=== PATIENT | female | born 1980 | race Caucasian/White ===

== ENCOUNTER 2021-07-19 03:18 | Emergency (ER) | payer SELFPAY ==
--- NOTE | ~2021-07-19 | XR_ITS ---
EXAMINATION: XR chest 2V DATE: 07/19/2021 03:58 INDICATION: Dyspnea. COVID 19 2 weeks prior. TECHNIQUE: PA and lateral views of the chest were obtained. COMPARISON: Chest radiograph dated 12/30/2013 FINDINGS: The lungs are clear with no focal airspace opacities, pulmonary edema, pleural effusion or pneumothor ax. The cardiomediastinal silhouette is normal. Visualized bones and soft tissues are unremarkable. IMPRESSION: 1. Normal chest radiograph. Reviewed, dictated and finalized at location A. CATION MANAGER IMPRESSION: 1. Normal chest radiograph.
[2021-07-19 03:21] VITALS: BP 113/87; PULSE 99; RESP 20; TEMP 36.4; O2SAT 98
--- NOTE | 2021-07-19 03:35 | ECG_ITS ---
Measurements Intervals [place] Rate: 70 P: 53 [place]: 148 QRS: 61 QRSD: 88 T: 46 QT: 386 QTc: 418 Interpretive Statements SINUS RHYTHM INCOMPLETE RIGHT BUNDLE BRANCH BLOCK BORDERLINE ECG Electronically Signed On 07-19-2021 6:35:45 FIBERGLASS BONDING MACHINE TENDER by Kavon Sanford D.O.
[2021-07-19 03:43] VITALS: PULSE 93; RESP 16
[2021-07-19] MEDS: IPRATROPIUM BR 0.02% INH SOLN 0.5 MG/2.5 ML VIAL INHALATION (03:47)
[2021-07-19] MEDS: ALBUTEROL SULFATE NEB 2.5 MG/0.5 ML INH 5 MG INHALATION (03:47)
--- NOTE | 2021-07-19 03:49 | PCRCNOTE ---
Pt stated that post covid she is unable to perform certain physical tasks due to shortness of breath with exertion. Pt stated she wakes up in the night short of breath and that the shortness of breath comes out of nowhere even in times when sitting on the couch.
[2021-07-19 03:53] VITALS: PULSE 94; RESP 22; O2SAT 97
--- NOTE | 2021-07-19 04:03 | ED.SOB ---
HPI - SOB/Dyspnea General Chief Complaint: Shortness of Breath/Dyspnea Stated Complaint: sob, covid + 06/26 Time Seen by Provider: 07/19/21 03:31 Source: patient History of Present Illness HPI Narrative: Patient presents with shortness of breath. She does report she was diagnosed with Covid approximately 1 month ago was initially doing well however the past 2 weeks she has noted increased shortness of breath and cough. Tonight she was having a hard time sleeping due to her shortness of breath and chills which was a first to her so she came to the ER for evaluation. She also feels like her lips were blue at home was concerned she was not getting enough oxygen. She denies focal chest pain she denies any nausea or vomiting she denies any abdominal pain or urinary symptoms Related Data Allergies Allergy/AdvReac Type Severity Reaction Status Date / Time etodolac AdvReac Intermediate severe Verified 07/19/21 03:28 dehydration Review of Systems Review of Systems: CONSTITUTIONAL: Denies fever, chills, or sweats. EYES: Denies visual changes, redness, or discharge. ENT: Denies rhinorrhea, congestion, sore throat, or otalgia. CARDIOVASCULAR: Denies chest pain, palpitations, or edema. RESPIRATORY: Reports shortness of breath and cough. GASTROINTESTINAL: Denies abdominal pain, nausea, vomiting, or diarrhea. GENITOURINARY: Denies dysuria or hematuria. SKIN: Denies rash or itching. MUSCULOSKELETAL: Denies back pain, joint pain, or myalgia. NEUROLOGIC: Denies headache, numbness, dizziness, or weakness. PSYCHIATRIC: Denies anxiety or depression. All systems reviewed & are unremarkable except as noted in HPI and below PMFSH Social History Social History (Updated 07/19/21 @ 04:04 by Devon Ortiz MD) Smoking status: Current every day smoker Living arrangements: with family Exam Narrative: GENERAL: Well-appearing, well-nourished, and in no acute distress. HEAD: Normocephalic, atraumatic. EYES: PERRLA and EOMI. ENT: Nares clear, no rhinorrhea or epistaxis. Mucous membranes moist. NECK: Supple. No masses. No JVD CHEST: Clear to auscultation. No respiratory distress. No wheezes rales or rhonchi HEART: Regular rate and rhythm. No murmur heard. Normal peripheral pulses. ABDOMEN: Soft, nontender, nondistended, normal active bowel sounds. EXTREMITIES: Normal range of motion. No edema. SKIN: Warm, dry, no rash. NEURO: No focal deficits. Alert and oriented x3. PSYCH: Normal mood and affect. Course Reevaluation(s) Reevaluation #1: Patient reports feeling much improved after DuoNeb therapies. Results and plan reviewed with patient. Patient is comfortable outpatient plan. Date: 07/19/21 Time: 05:06 Vital Signs Vital signs: Vital Signs Temperature 36.4 C L 07/19/21 03:21 Pulse Rate 99 07/19/21 03:21 Respiratory Rate 20 07/19/21 03:21 Blood Pressure 113/87 07/19/21 03:21 Pulse Oximetry 98 07/19/21 03:21 Temperature 36.4 C L 07/19/21 03:21 Pulse Rate 81 07/19/21 05:37 Respiratory Rate 20 07/19/21 05:37 Blood Pressure 119/73 07/19/21 05:37 Pulse Oximetry 98 07/19/21 05:37 MDM - SOB/Dyspnea MDM Narrative Medical decision making narrative: H&P as above, vss, pt looks clinically well, exam reassuring, labs with mild leukocytosis otherwise clinically unremarkable, img without acute process, additional labs/img considered, symptomatic relief available as needed, on reevaluation pt continues to looks clinically well. Suspect viral bronchitis may be related to recent Covid infection versus reinfection or other viral process. Patient did decline additional viral testing, dns pneumonia, severe sepsis, hypoxia, PE. plan to tx/monitor as op w/ pcm f/u findings/plan discussed with pt, pt agree/comfortable with plan, return precautions given Lab Data Result diagrams: 07/19/21 04:19 07/19/21 04:19 Labs: Lab Results 07/19/21 07/19/21 07/19/21 Range/Units 04:19 04:19 04:19
[2021-07-19 04:38] LABS: Basophils Absolute Auto 0.1 K/mm3 (0.0-0.1); Basophils Percent Auto 0.5 % (0.2-1.2); Eosinophils Absolute Auto 0.5 K/mm3 (0-0.3); Eosinophils Percent Auto 4.2 % (0-4.4); Hematocrit 43.6 % (37.0-47.0); Hemoglobin 15.3 g/dL (12.0-15.0); Immature Granulocyte Absolute 0.04 K/mm3 (0.00-0.031); Immature Granulocyte Percent A 0.3 % (0-0.5); Lymphocytes Absolute Auto 3.67 K/mm3 (0.9-3.2); Lymphocytes Percent Auto 30.6 % (18.3-44.2); Mean Corpuscular HGB Conc 35.1 g/dl (32-36); Mean Corpuscular Hemoglobin 32.2 pg (26-34); Mean Corpuscular Volume 91.8 fl (80-100); Mean Platelet Volume 10.8 fl (7.4-10.4); Monocytes Absolute Auto 0.7 K/mm3 (0.1-0.6); Monocytes Percent Auto 5.9 % (2.6-8.5); Neutrophils Percent Auto 58.5 % (45.5-73.1); Platelet Count Result 211 k/mm3 (150-375); Red Blood Count 4.75 M/mm3 (4.2-5.4); Red Cell Distribution Width 13.2 % (11.5-14.5)
[2021-07-19 04:48] LABS: Alanine Aminotransferase 14 U/L (4-35); Albumin Level 3.7 g/dL (3.5-5.1); Alkaline Phosphatase 67 U/L (38-126); Anion Gap 7 mmol/L (8-16); Aspartate Amino Transferase 16 U/L (14-36); Bilirubin,Total 0.2 mg/dL (0.2-1.3); Blood Urea Nitrogen 9 mg/dL (7-17); Calcium 8.7 mg/dL (8.4-10.2); Carbon Dioxide 23 mmol/L (22-30); Chloride 107 mmol/L (98-107); Estimated CRCL calculation 74 ml/min; Estimated Glomerular Filt Rate > 60; Glucose 110 mg/dL (65-110); Potassium 3.5 mmol/L (3.4-5.0); Sodium 137 mmol/L (137-145)
[2021-07-19 05:37] VITALS: BP 119/73; PULSE 81; RESP 20; O2SAT 98
== END 2021-07-19 05:19 | disposition home or self-care (01) ==
PROVIDERS: Emergency Provider Emergency Medicine
DX: J40 Bronchitis, not specified as acute or chronic (principal); Z86.16 Personal history of COVID-19; F17.200 Nicotine dependence, unspecified, uncomplicated; I45.10 Unspecified right bundle-branch block
CPT/HCPCS: 36415; 71046; 80053; 85025; 85380; 93005; 94640; 99284

== ENCOUNTER 2022-02-04 14:47 | Emergency (ER) | payer SELFPAY ==
[2022-02-04 15:02] VITALS: BP 126/82; PULSE 91; RESP 18; TEMP 36.1; O2SAT 98
--- NOTE | 2022-02-04 15:29 | ED.URI ---
HPI - URI/Sore Throat General Chief Complaint: Upper Respiratory Infection Stated Complaint: COUGH/SOB Source: patient Mode of arrival: ambulatory Limitations: no limitations History of Present Illness HPI Narrative: 41-year-old female presents to [facility] with complaints of runny nose, cough, nasal congestion, intermittent shortness of breath and wheezing for the past 4 days. Patient is a smoker. Patient reports that she has a history of bronchitis but ran out of her inhaler recently patient reports that 2 of her children currently have cold-like symptoms including a runny nose. Patient denies recent travel. Patient denies fever, body aches, chills, nausea, vomiting or diarrhea. MD elicited complaint: cough, rhinorrhea and nasal congestion Onset (ago): day(s) (4) Able to tolerate fluids by mouth: Yes Exacerbating factors: nothing Associated symptoms: rhinorrhea and nasal congestion Treatments prior to arrival: none Related Data Allergies Allergy/AdvReac Type Severity Reaction Status Date / Time etodolac AdvReac Intermediate severe Verified 07/19/21 03:28 dehydration Review of Systems Constitutional: Constitutional: Denies chills, Denies fatigue, Denies fever(s) and Denies weakness ENT: Denies dysphagia, Denies vertigo, Denies dizziness, Denies epistaxis and Reports nasal congestion Comments: runny nose Cardiovascular: Cardiovascular: Denies chest pain Respiratory: Respiratory: Reports chest congestion, Reports cough, Reports dyspnea and Reports wheezing Gastrointestinal: Gastrointestinal: Denies abdominal pain, Denies diarrhea, Denies nausea and Denies vomiting Integumentary/Breasts: Skin/Breast: Denies rash PMFSH Social History Social History Smoking status: Current every day smoker Comments At time of signature, I agree with nursing past medical, surgical, social and family history. There is no relevant family history pertinent to the presenting complaint. Exam Const: General: healthy appearing Nutritional Appearance: well nourished Orientation/consciousness: patient oriented x3 Limitations: no limitations HENMT: Head: normal to inspection Ears: external ears normal General nose exam: Normal external nose present and Normal nares present Face and sinus: normal facial exam Mouth: Yes Normal oral and palatal mucosa present Teeth and gingiva: dentition normal Throat: posterior oropharynx normal and uvula midline Chest: Chest palpation & inspection: normal inspection of the chest Resp: Effort & Inspection: normal respiratory effort and not labored Auscultation: wheezes scattered wheezes Cardio: Rate: regular rate Rhythm: regular rhythm Heart sounds: no murmurs Skin: General skin exam: normal color Rashes: no rashes Wounds: no wounds Neuro: General: patient oriented x3 Cranial nerves: Yes Nystagmus not present Speech: normal speech Gait exam (Neuro): Normal gait present Extrem: General: normal to inspection Psych: Mental Status: mental status grossly normal Affect: normal affect Attitude: cooperative Course Course Level of Care: Express Care Visit Vital Signs Vital signs: Vital Signs Temperature 36.1 C L 02/04/22 15:02 Pulse Rate 91 02/04/22 15:02 Respiratory Rate 18 02/04/22 15:02 Blood Pressure 126/82 02/04/22 15:02 Pulse Oximetry 98 02/04/22 15:02 Oxygen Delivery Room Air 02/04/22 15:02 Temperature 36.1 C L 02/04/22 15:02 Pulse Rate 76 02/04/22 15:53 Respiratory Rate 16 02/04/22 15:53 Blood Pressure 126/82 02/04/22 15:02 Pulse Oximetry 96 02/04/22 15:53 Oxygen Delivery Room Air 02/04/22 15:02 MDM - URI/Sore Throat MDM Narrative Medical decision making narrative: Patient reports that her symptoms have improved after breathing treatment administered. Suggested chest x-ray but patient declined chest x-ray at this time; patient states I know this is not pneumonia. patien
[2022-02-04] MEDS: ALBUTEROL SULFATE NEB 2.5 MG/3 ML INH INHALATION (15:34)
[2022-02-04 15:53] VITALS: PULSE 76; RESP 16; O2SAT 96
== END 2022-02-04 16:00 | disposition home or self-care (01) ==
PROVIDERS: Emergency Provider Nurse Practitioner Family
DX: J40 Bronchitis, not specified as acute or chronic (principal); Z20.822 Contact with and (suspected) exposure to COVID-19; F17.200 Nicotine dependence, unspecified, uncomplicated
CPT/HCPCS: 87426; 99213; C9803; G0463

== ENCOUNTER 2023-11-06 19:52 | Emergency (ER) | payer OTHER, MEDICAID, SELFPAY ==
[2023-11-06] VITALS (8 sets, daily range): BP systolic 143–168; BP diastolic 82–104; PULSE 87–98; RESP 18–22; TEMP 37.1; O2SAT 96–99
--- NOTE | ~2023-11-06 | XR_ITS ---
EXAMINATION: XR chest 2V Exam Date/Time: 11/06/2023 20:05 CDT HISTORY: SOB, NAUSEA AND NON PRODUCTIVE COUGH X 1 DAY Comparison: 07/19/2021. RESULT: Lines, tubes, and devices: None. Lungs and pleura: Clear. Cardiomediastinal silhouette: Stable. Other: No acute osseous or upper abdominal finding. IMPRESSION: No acute cardiopulmonary process. Reviewed, dictated and finalized at location K.
--- NOTE | 2023-11-06 19:55 | ECG_ITS ---
[facility] [address] Test Date: 2023-11-06 Pat Name: Silke Read Department: Room: Gender: F Medical Cash Poster: JEFFREY : 1980 Requested By: Iron Recinos Order Number: [id number] Anu MD: Kavon Sanford D.O. Measurements Intervals [place] Rate: 83 P: 52 RI: 145 QRS: 48 QRSD: 92 T: 40 QT: 384 QTc: 453 Interpretive Statements SINUS RHYTHM BASELINE ARTIFACT- I, II AVR NORMAL ECG No previous ECG available for comparison Electronically Signed On 11-07-2023 09:24:54 CDT by Kavon Sanford D.O.
--- NOTE | 2023-11-06 20:01 | ED.SOB ---
HPI - SOB/Dyspnea General Chief Complaint: Shortness of Breath/Dyspnea Stated Complaint: sob Time Seen by Provider: 11/06/23 19:53 History of Present Illness HPI Narrative: 43-year-old female presents to emergency department for shortness of breath for the past few weeks, worsening over the past couple of days. Patient states she has past medical history of asthma and fibromyalgia. States she has noticed some wheezing and has been using her albuterol inhaler without improvement. States she has also developed a nonproductive cough the past few days which prompted her to come to the ED for further evaluation. She is reporting substernal chest pain that is nonradiating, worse with coughing and sometimes when she takes a deep breath. States it is nonradiating. She denies diaphoresis or vomiting. Does report some nausea. No history of CHF. No history of VTE. Denies hemoptysis, recent surgeries or hospitalizations. Patient does smoke a pack a day for multiple years. No formal diagnosis of COPD, no fever. Related Data Allergies Allergy/AdvReac Type Severity Reaction Status Date / Time etodolac AdvReac Intermediate severe Verified 07/19/21 03:28 dehydration Review of Systems Review of Systems: CONSTITUTIONAL: Denies fever, chills, or sweats. EYES: Denies visual changes, redness, or discharge. ENT: Denies rhinorrhea, congestion, sore throat, or otalgia. CARDIOVASCULAR: See HPI RESPIRATORY: See HPI GASTROINTESTINAL: Denies abdominal pain, nausea, vomiting, or diarrhea. GENITOURINARY: Denies dysuria or hematuria. SKIN: Denies rash or itching. MUSCULOSKELETAL: Denies back pain, joint pain, or myalgia. NEUROLOGIC: Denies headache, numbness, or weakness. PSYCHIATRIC: Denies anxiety or depression. [facility] Social History Social History Smoking status: Current every day smoker Living arrangements: with family Exam Narrative: GENERAL: Well-appearing, well-nourished, and in no acute distress. HEAD: Normocephalic, atraumatic. EYES: PERRLA and EOMI. ENT: Nares clear, no rhinorrhea or epistaxis. Mucous membranes moist. NECK: Supple. CHEST: Mild expiratory wheeze in the left lower lung field. No rales or rhonchi. Patient speaking in full sentences in no respiratory distress HEART: Regular rate and rhythm. No murmur heard. Normal peripheral pulses. ABDOMEN: Soft, nontender, nondistended, normal active bowel sounds. EXTREMITIES: Normal range of motion. No edema. SKIN: Warm, dry, no rash. NEURO: No focal deficits. Alert and oriented x3 Course Vital Signs Vital signs: Vital Signs Temperature 98.7 F 11/06/23 19:57 Pulse Rate 97 11/06/23 19:57 Respiratory Rate 19 11/06/23 19:57 Blood Pressure 168/104 H 11/06/23 19:57 Pulse Oximetry 99 11/06/23 19:57 Oxygen Delivery Room Air 11/06/23 19:57 Temperature 98.7 F 11/06/23 19:57 Pulse Rate 96 11/06/23 23:11 Respiratory Rate 19 11/06/23 23:11 Blood Pressure 150/104 H 11/06/23 23:11 Pulse Oximetry 96 11/06/23 23:11 Oxygen Delivery Room Air 11/06/23 21:01 MDM - SOB/Dyspnea MDM Narrative Medical decision making narrative: 43-year-old female with history of asthma and fibromyalgia presents to emergency department for shortness of breath over the past few weeks, worsening over the past couple of days. Triage vital significant for hypertension of 168/104. She is satting 99% on room air in no respiratory distress. Speaking in full sentences. Exam significant for expiratory wheezing in the left lower lung field, otherwise and no adventitious sounds. EKG was sinus rhythm, rate of 81 ppm, normal [place] interval, normal QRS duration, normal QTC, no ischemic changes. Troponin x2 nondetectable. CBC with leukocytosis of 14.5. Chemistries with hypokalemia of 2.9, Mag is normal. Potassium orally repleted. BNP within normal limits. COVID and flu were negative. Chest x-ray shows no
[2023-11-06 20:07] LABS: Basophils Absolute Auto 0.1 K/mm3 (0.0-0.1); Basophils Percent Auto 0.6 % (0.2-1.2); Eosinophils Absolute Auto 0.8 K/mm3 (0-0.3); Eosinophils Percent Auto 5.7 % (0-4.4); Hematocrit 46.3 % (37.0-47.0); Immature Granulocyte Absolute 0.06 K/mm3 (0.00-0.031); Immature Granulocyte Percent A 0.4 % (0-0.5); Lymphocytes Absolute Auto 3.75 K/mm3 (0.9-3.2); Lymphocytes Percent Auto 25.9 % (18.3-44.2); Mean Corpuscular HGB Conc 34.6 g/dl (32-36); Mean Corpuscular Hemoglobin 31.5 pg (26-34); Mean Corpuscular Volume 91.1 fl (80-100); Mean Platelet Volume 10.3 fl (7.4-10.4); Monocytes Absolute Auto 0.6 K/mm3 (0.1-0.6); Neutrophils Absolute Auto 9.2 K/mm3 (1.3-6.7); Neutrophils Percent Auto 63.4 % (45.5-73.1); Platelet Count Result 276 k/mm3 (150-375); Red Blood Count 5.08 M/mm3 (4.2-5.4); Red Cell Distribution Width 13.2 % (11.5-14.5); White Blood Count 14.5 K/mm3 (4.5-10.0)
[2023-11-06] MEDS: methylPREDNISolone SOD SUCC 125 MG VIAL IV PUSH (20:08)
[2023-11-06 20:20] LABS: Alanine Aminotransferase 18 U/L (6-35); Albumin Level 4.4 g/dL (3.5-5.1); Alkaline Phosphatase 80 U/L (38-126); Anion Gap 7 mmol/L (4-12); Aspartate Amino Transferase 18 U/L (14-36); Bilirubin,Total 0.7 mg/dL (0.2-1.3); Blood Urea Nitrogen 7 mg/dL (7-17); Calcium 8.7 mg/dL (8.4-10.2); Carbon Dioxide 28 mmol/L (22-30); Chloride 106 mmol/L (98-107); Estimated CRCL calculation 74 ml/min; Estimated Glomerular Filt Rate > 60; Glucose 102 mg/dL (65-110); Magnesium 1.8 mg/dL (1.6-2.3); Potassium 2.9 mmol/L (3.4-5.0); Sodium 141 mmol/L (137-145)
[2023-11-06] MEDS: IPRATROPIUM 0.5 MG/ALBUTEROL SULFATE 2.5 MG AMPUL.NEB 3 ML INHALATION ×3 (20:20→20:21)
[2023-11-06 20:31] LABS: NT Pro B Type Natriuretic Pept 37 pg/mL (19.9-100); Troponin I < 0.012 ng/mL (0.000-0.034)
[2023-11-06] MEDS: MAGNESIUM SULF 2 GM/WATER 50ML 2 GM/50 ML BAG IVPB (20:47)
[2023-11-06 20:52] LABS: Influenza A QL RT-PCR Negative (Negative); Influenza B QL RT-PCR Negative (Negative); SARS-CoV-2 RNA PCR Negative (Negative)
[2023-11-06] MEDS: POTASSIUM CHLORIDE 20 MEQ PACKET (FOR LIQUID) 40 MEQ PO (20:56)
[2023-11-06] MEDS: KCL 20 MEQ/SW 100 ML 100 ML 50 MEQ IVPB (20:56)
--- NOTE | 2023-11-06 21:18 | ECG_ITS ---
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 Measurements Intervals [place] Rate: 87 P: 3 [place]: 152 QRS: 25 QRSD: 96 T: 16 QT: 365 QTc: 441 Interpretive Statements SINUS RHYTHM BASELINE ARTIFACT- I, II, AVR, AVL, AVF NORMAL ECG Compared to ECG 11/06/2023 21:14:55 No significant changes Electronically Signed On 11-07-2023 11:13:27 CDT by Kavon Sanford D.O.
--- NOTE | 2023-11-06 21:22 | PC.NURSE ---
Patient stated that the Potassium began to burn her arm. Rate was slowed down to 30mL/hr and ran with normal saline. Patient states that arm still feels like it is on fire and in tears. Potassium and normal saline stopped all together. New EKG obtained and showed to EDP Dr. Mayorga. Notified EDP QUINTEN Ayala. Per Lucy cancel Potassium drip.
--- NOTE | 2023-11-06 22:39 | PC.NURSE ---
Patient states that she cannot drink the Potassium power drink and refuses anymore. Notified EDP QUINTEN Ayala.
[2023-11-06] MEDS: POTASSIUM CHLORIDE 20 MEQ ER TABLET PO (22:52)
[2023-11-06] MEDS: POTASSIUM CHLORIDE 20 MEQ ER TABLET 40 MEQ PO (22:53)
--- NOTE | 2023-11-06 23:02 | ECG_ITS ---
[facility] [address] Test Date: 2023-11-06 Pat Name: Silke Read Department: Room: Gender: F Dance Critic: aZy : 1980 Requested By: Lucy Penn Order Number: [id number] Reading MD: Kavon Sanford D.O. Measurements Intervals [place] Rate: 81 P: 57 [place]: 134 QRS: 49 QRSD: 94 T: 38 QT: 364 QTc: 424 Interpretive Statements SINUS RHYTHM BASELINE ARTIFACT- V5 NORMAL ECG No previous ECG available for comparison Electronically Signed On 11-07-2023 15:03:12 CDT by Kavon Sanford D.O.
[2023-11-06 23:21] LABS: Troponin I < 0.012 ng/mL (0.000-0.034)
== END 2023-11-06 23:40 | disposition home or self-care (01) ==
PROVIDERS: Emergency Medicine; Emergency Provider Physician Assistant; PCP Physician Assistant
DX: J45.901 Unspecified asthma with (acute) exacerbation (principal); E87.6 Hypokalemia; Z20.822 Contact with and (suspected) exposure to COVID-19; M79.7 Fibromyalgia; F17.210 Nicotine dependence, cigarettes, uncomplicated; Z79.899 Other long term (current) drug therapy
CPT/HCPCS: 36415; 71046; 80053; 83735; 83880; 84484; 85025; 87636; 93005; 94640; 96365; 96366; 96367; 99284; A9270; J2919; J3475; J3480; J7040

== ENCOUNTER 2023-11-15 09:48 | Emergency (ER) | payer OTHER, MEDICAID, SELFPAY ==
--- NOTE | ~2023-11-15 | CT_ITS ---
EXAMINATION: CT abdomen pelvis w con DATE: 11/15/2023 10:39 INDICATION: Left lower quadrant abdominal pain. Nausea. TECHNIQUE: Computed tomography (CT) of the abdomen and pelvis was performed with 100 mL Omnipaque 350 intravenous contrast. Automated exposure control and iterative reconstruction technique were employe d. The dose-length product was 947.49 mGy-cm. COMPARISON: CT abdomen and pelvis 10/08/2017, and 03/08/2015 FINDINGS: The visualized portions of the lung bases are clear without pneumonia or pleural effusion. The heart size is normal. No pericardial effusion. There is wall thickening of the distal esophagus. The liver, gallbladder, spleen, pancreas, adrenal glands, and right kidney are normal. There is a 5 m m cyst in left kidney. There are scattered diverticula in the colon. There is wall thickening of the sigmoid colon with fat stranding around a sigmoid diverticulum, consistent with diverticulitis. The a ppendix is normal. There are no dilated loops of bowel. There are no pathologically enlarged lymph no luna. There is physiologic fluid in the pelvis. There is moderate thoracic spondylosis and mild lumbar spondylosis. IMPRESSION: 1. Acute sigmoid diverticulitis. No perforation or abscess. 2. Chronic wall thickening of the distal esophagus suspicious for chronic esophagitis. Reviewed, dictated and finalized at location A. IMPRESSION: 1. Acute sigmoid diverticulitis. No perforation or abscess. 2. Chronic wall thickening of the distal esophagus suspicious for chronic esoph agitis.
[2023-11-15 10:02] VITALS: BP 143/87; PULSE 116; RESP 17; TEMP 38.3; O2SAT 98
--- NOTE | 2023-11-15 10:07 | ED.ABDPAIN ---
HPI - Abdominal Pain General Chief Complaint: Abdominal Pain <Dhruv Salvador APRN - Last Filed: 11/15/23 12:58> Stated Complaint: abdominal pain <Dhruv Salvador APRN - Last Filed: 11/15/23 12:58> Time Seen by Provider: 11/15/23 09:53 <Dhruv Salvador APRN - Last Filed: 11/15/23 12:58> Source: patient <Dhruv Salvador APRN - Last Filed: 11/15/23 12:58> Mode of arrival: ambulatory <Dhruv Salvador APRN - Last Filed: 11/15/23 12:58> Limitations: no limitations <Dhruv Salvador APRN - Last Filed: 11/15/23 12:58> History of Present Illness HPI narrative: Silke is a 43-year-old female patient presenting to the emergency room with complaints of left mid to lower abdominal pain that started this morning. She does have associated nausea. She reports she is currently has pain 5/10 him the pain is worse with movement. The pain is sharp and stabbing in nature. Last BM was this morning. States she has had decreased stool and is having more frequent stools but denies any blood in her stool. States she is also having some body aches chills and fever. She denies any urinary symptoms. History of you urinary tract infections, ovarian cyst, and IBS. Had a colonoscopy done 20 years ago. Last time she ate was 7:00pm. last night. <Dhruv Salvador APRN - Last Filed: 11/15/23 12:58> Related Data Allergies/Adverse Reactions: Allergies Allergy/AdvReac Type Severity Reaction Status Date / Time etodolac AdvReac Intermediate severe Verified 11/15/23 10:05 dehydration <Dhruv Salvador APRN - Last Filed: 11/15/23 12:58> Review of Systems Review of Systems: Pertinent positives per HPI. Patient denies any fever, chills, rash, headache, visual changes, dizziness, cough, runny nose, sore throat, shortness of breath, chest pain, palpitations, nausea, vomiting, diarrhea, constipation, abdominal pain, or any urinary issues. <Dhruv Salvador APRN - Last Filed: 11/15/23 12:58> PMFSH Social History Social History: Social History Smoking status: Current every day smoker Living arrangements: with family <Dhruv Salvador APRN - Last Filed: 11/15/23 12:58> Comments At the time of my signature, I reviewed and agree with the nursing past medical, surgical, social, and family history. There is no relevant family history pertinent to the patient complaint. <Dhruv Salvador APRN - Last Filed: 11/15/23 12:58> Exam Narrative: General: Well-developed, well nourished, in no apparent distress. Head: Normocephalic, atraumatic. Cardio: Regular rate and rhythm, s1 and s2 normal, no murmur appreciated. Resp: Clear to auscultation bilaterally, no rhonchi, rales, wheezing or rubs. Abdomen: Soft, pliable, bowel sounds present in all quadrants, left upper and lower abdomen tender to palpation rebound tenderness when palpation over the right to the left side the abdomen, no organomegly, no CVAT tenderness. <Dhruv Salvador APRN - Last Filed: 11/15/23 12:58> Course Course Emergency Course: Portions of this record may have been created with voice recognition software. <Dhruv Salvador APRN - Last Filed: 11/15/23 12:58> BRACELET FORM COVERER/PA Physician Supervision This visit was performed by both a physician and an APC. I performed all aspects of the MDM as documented. <Kenya Alvarez MD - Last Filed: 11/15/23 21:12> Vital Signs Vital signs: Vital Signs Temperature 100.9 F H 11/15/23 10:02 Pulse Rate 116 H 11/15/23 10:02 Respiratory Rate 17 11/15/23 10:02 Blood Pressure 143/87 H 11/15/23 10:02 Pulse Oximetry 98 11/15/23 10:02 Oxygen Delivery Room Air 11/15/23 10:02 Temperature 100.9 F H 11/15/23 10:02 Pulse Rate 98 11/15/23 12:48 Respiratory Rate 12 11/15/23 12:48 Blood Pressure 132/96 H 11/15/23 12:48 Pulse Oximetry 96 11/15/23 12:48 Oxygen Del
[2023-11-15 10:09] LABS: Basophils Absolute Auto 0.1 K/mm3 (0.0-0.1); Basophils Percent Auto 0.4 % (0.2-1.2); Eosinophils Absolute Auto 0.4 K/mm3 (0-0.3); Hemoglobin 15.8 g/dL (12.0-15.0); Immature Granulocyte Absolute 0.11 K/mm3 (0.00-0.031); Immature Granulocyte Percent A 0.5 % (0-0.5); Lymphocytes Absolute Auto 2.31 K/mm3 (0.9-3.2); Mean Corpuscular HGB Conc 34.3 g/dl (32-36); Mean Corpuscular Hemoglobin 31.9 pg (26-34); Mean Corpuscular Volume 92.7 fl (80-100); Mean Platelet Volume 9.8 fl (7.4-10.4); Monocytes Absolute Auto 1.2 K/mm3 (0.1-0.6); Monocytes Percent Auto 5.5 % (2.6-8.5); Neutrophils Absolute Auto 16.9 K/mm3 (1.3-6.7); Neutrophils Percent Auto 80.6 % (45.5-73.1); Platelet Count Result 272 k/mm3 (150-375); Red Blood Count 4.96 M/mm3 (4.2-5.4); Red Cell Distribution Width 13.1 % (11.5-14.5); White Blood Count 20.9 K/mm3 (4.5-10.0)
[2023-11-15 10:23] LABS: Alanine Aminotransferase 16 U/L (6-35); Alkaline Phosphatase 80 U/L (38-126); Anion Gap 5 mmol/L (4-12); Aspartate Amino Transferase 14 U/L (14-36); Bilirubin,Total 0.8 mg/dL (0.2-1.3); Blood Urea Nitrogen 9 mg/dL (7-17); Calcium 8.5 mg/dL (8.4-10.2); Carbon Dioxide 24 mmol/L (22-30); Chloride 106 mmol/L (98-107); Estimated CRCL calculation 79 ml/min; Estimated Glomerular Filt Rate > 60; Glucose 99 mg/dL (65-110); Lipase 49 U/L (23-300); Potassium 3.8 mmol/L (3.4-5.0); Sodium 135 mmol/L (137-145)
[2023-11-15 10:32] LABS: Appearance Urine Clear (Clear); Bacteria Urine None Seen /hpf; Bilirubin Urine Negative (Negative); Blood Urine 1+ (Negative); Color Urine Yellow (Yellow); Glucose Urine UA Negative (Negative); Ketones Urine Negative (Negative); Leukocyte Esterase Ur Negative LEU/UL (Negative); Nitrate Urine Negative (Negative); Non Pathogenic Casts 0-2; Protein Urine Negative (Negative); Specific Grav Ur 1.017 (1.001-1.035); Squamous Epithelial Cell Urine None Seen /hpf (Few); Urobilinogen Urine 0.2 mg/dL (<2.0); WBC Urine 0-5 /hpf (0-3)
[2023-11-15 10:34] LABS: Lactic Acid Reflex 1.3 mmol/L (0.7-2.0)
[2023-11-15 10:36] LABS: Add Urine Microscopic? YES
[2023-11-15] MEDS: SODIUM CHLORIDE 0.9% IV 1,000 ML 999 ML IV CONT (11:23)
[2023-11-15] MEDS: ONDANSETRON INJ 4 MG/2 ML VIAL IV PUSH ×2 (11:23→12:46)
[2023-11-15] MEDS: MORPHINE SULFATE (*CRX) 4 MG/ML INJ IV PUSH ×2 (11:25→12:45)
[2023-11-15 11:42] VITALS: BP 110/67; PULSE 104; RESP 20; O2SAT 97
[2023-11-15 12:48] VITALS: BP 132/96; PULSE 98; RESP 12; O2SAT 96
== END 2023-11-15 13:06 | disposition home or self-care (01) ==
PROVIDERS: Emergency Provider Nurse Practitioner Family; PCP Physician Assistant
DX: K57.92 Diverticulitis of intestine, part unspecified, without perforation or abscess without bleeding (principal); F17.210 Nicotine dependence, cigarettes, uncomplicated
CPT/HCPCS: 36415; 74177; 80053; 81001; 81025; 83605; 83690; 85025; 87040; 96361; 96374; 96375; 96376; 99284; J2270; J2405; J7030; Q9967

== ENCOUNTER 2024-01-22 10:57 | Outpatient (CLI) | payer OTHER, MEDICAID, SELFPAY ==
--- NOTE | ~2024-01-22 | US_ITS ---
US axilla 01/22/2024 11:36 Indication: Palpable axillary abnormalities. Procedure: High-resolution bilateral axillary ultrasound Comparison: No prior studies for comparison. Findings: There are bilateral axillary lymph nodes measuring 1.4 cm on the right and up to 1.9 cm on the left. All lymph nodes contained residual fatty hilum, likely reactive. Impression: 1: Probable benign reactive bilateral axillary lymph nodes. Recommend correlation with diagnostic liam ateral mammogram. BI-RADS CATEGORY 0 - INCOMPLETE STUDY, NEED ADDITIONAL IMAGING EVALUATION. Reviewed, dictated and finalized at location B. Impression: 1: Probable benign reactive bilateral axillary lymph nodes. Recommend correlati on with diagnostic bilateral mammogram. BI-RADS CATEGORY 0 - INCOMPLETE STUDY, NEED ADDITIONAL IMAGING EVALUATION.
== END 2024-01-22 10:58 | disposition home or self-care (01) ==
PROVIDERS: PCP Physician Assistant; Visit Provider Physician Assistant
DX: R22.2 Localized swelling, mass and lump, trunk (principal)
CPT/HCPCS: 76882

== ENCOUNTER 2024-04-24 12:47 | Outpatient (CLI) | payer OTHER, MEDICAID, SELFPAY ==
--- NOTE | ~2024-04-24 | MM_ITS ---
EXAMINATION: MM diagnostic dario BI w roberto HISTORY: Axillary swelling TECHNIQUE: 3-D tomosynthesis images of the breasts were performed and synthetic 2-D images were gener ated. CAD analysis was submitted and interpreted. COMPARISON: None BREAST PARENCHYMAL COMPOSITION:Not Dense. The breasts are almost entirely fatty FINDINGS: Parenchymal pattern of the breasts is unremarkable. No mass lesion or distortion seen. No s uspicious pelvic or calcification. IMPRESSION: No mammographic evidence for malignancy. BI-RADS Category 1: Negative Reviewed, dictated and finalized at location M. TRAINER
== END 2024-04-24 12:48 | disposition home or self-care (01) ==
LOC: ANHIMG 12:51
PROVIDERS: PCP Physician Assistant; Visit Provider Physician Assistant
DX: Z12.31 Encounter for screening mammogram for malignant neoplasm of breast (principal)
CPT/HCPCS: 77062; 77066; G0279

== ENCOUNTER 2024-05-24 16:51 | Emergency (ER) | payer OTHER, MEDICAID, SELFPAY ==
--- NOTE | ~2024-05-24 | XR_ITS ---
EXAMINATION: XR chest 2V Exam Date/Time: 05/24/2024 18:54 FACTORY ENGINEER HISTORY: shortness of breath Comparison: 11/06/2023. RESULT: Lines, tubes, and devices: None. Lungs and pleura: Clear. Cardiomediastinal silhouette: Stable. Other: No acute osseous or upper abdominal finding. IMPRESSION: No acute cardiopulmonary process. Reviewed, dictated and finalized at location K. ORY ENGINEER
[2024-05-24 16:52] VITALS: BP 164/94; PULSE 94; RESP 18; TEMP 36.8; O2SAT 100
[2024-05-24 17:07] VITALS: BP 143/93; PULSE 86; RESP 18; TEMP 36.9; O2SAT 97
--- NOTE | 2024-05-24 17:56 | ED_ITS ---
HPI - URI/Sore Throat General Chief Complaint: Upper Respiratory Infection Stated Complaint: I'm almost positive I've got bronchitis Time Seen by Provider: 05/24/24 17:02 History of Present Illness HPI Narrative: Patient is a 44-year-old female who presents to the ER with breathing problems. She reports she has a history of asthma and her inhaler at home is no longer working. Patient reports this exacerbation started approximately 1 week ago. She reports she has been using her inhaler every 2 hours. Patient reports she has bronchitis 3 times in the past year. She denies any recent temperatures, sore throat, headache, chest pain. Related Data Home Medications ?Medication ?Instructions ?Recorded ?Confirmed ?Last Taken ?Type beclomethasone dipropionate 40 1 inh inhalation Q12H 04/15/24 05/11/24 Unknown History mcg/actuation HFA breath activated aerosol (Qvar RediHaler) tizanidine 2 mg capsule 2 mg PO TID PRN 04/15/24 05/11/24 Unknown History Allergies Allergy/AdvReac Type Severity Reaction Status Date / Time etodolac AdvReac Intermediate severe Verified 05/24/24 17:11 dehydration Review of Systems Review of Systems: All systems reviewed & are unremarkable except as noted in HPI and below PMFSH Past Medical History Medical History IBS (irritable bowel syndrome) Migraine GERD (gastroesophageal reflux disease) Asthma Anemia Anxiety Allergies Surgical History Surgical History History of endometrial ablation H/O tubal ligation History of delivery x 3 Family History Family History Mother Heart disease Hypertension Grandparent Heart disease Hypertension Social History Social History Smoking status: Current every day smoker Tobacco type: cigarettes Alcohol intake: current Alcohol use details: rarely Substance use: never Substance use type: does not use Current Housing: Decline to Answer Concerned About Future Housing: Decline to Answer Difficulty Paying Gas/Electric Bills: Decline to Answer Difficulty Paying for Meds: Decline to Answer Currently Unemployed: Decline to Answer Education: Decline to Answer Difficulty w/ Childcare or Family Care: Decline to Answer Living arrangements: with family Occupation/Education: occupation Gender identity (if verbalized by the patient): Female Sexual Orientation (if Verbalized by the Patient): Straight or Heterosexual Exam Narrative: GENERAL: Well appearing, well-nourished, non-toxic, in no acute distress. HEAD: Normocephalic, atraumatic. NECK: Supple. No adenopathy, no masses. RESPIRATORY: Airway patent, respirations mildly labored. Clear to auscultation bilaterally, no rales, rhonchi, wheezing. CARDIOVASCULAR: Regular rate and rhythm without murmurs, rubs, or gallops. Peripheral pulses 2+ and equal bilaterally. ABDOMINAL: Soft, nontender, nondistended, no hepatosplenomegaly. Normoactive BS. MUSCULOSKELETAL: Moves all extremities. Strength/ROM intact without gross deformities. SKIN: Warm, dry, normal color. No rashes. NEURO: A&O X3. Speech clear. Cranial nerves II-XII grossly intact. Steady gait. No ataxic movements. PSYCHIATRIC: Appropriate mood and affect. Normal interaction. Course Vital Signs Vital signs: Vital Signs Temperature 36.8 C 05/24/24 16:52 Pulse Rate 94 05/24/24 16:52 Respiratory Rate 18 05/24/24 16:52 Blood Pressure 164/94 H 05/24/24 16:52 Pulse Oximetry 100 05/24/24 16:52 Oxygen Delivery Room Air 05/24/24 16:52 Temperature 36.9 C 05/24/24 17:07 Pulse Rate 94 05/24/24 18:05 Respiratory Rate 18 05/24/24 18:05 Blood Pressure 143/93 H 05/24/24 17:07 Pulse Oximetry 97 05/24/24 17:07 Oxygen Delivery Room Air 05/24/24 17:07 MDM - URI/Sore Throat MDM Narrative Medical decision making narrative: Patient is a 44-year-old female who presents to the ER with breathing problems. She reports she has a history of asthma and her inhaler at home is no longer working. Patient reports this exacerbation started approximately 1 week ago. She reports she has been using her inhaler every 2 hours. Patient reports she has bronchitis 3 times in the past year. She denies any recent temperatures, sore throat, headache, chest pain. Labs Ordered: COVID/flu/RSV swab Imaging Ordered: chest x-ray Results: Chest x-ray indicates No acute cardiopulmonary process. Diagnosis: Upper respiratory infection Patient Education/Shared MDM: Patient given a DuoNeb in the ER. She endorses improvement in her breathing afterwards. Patient given results of negative respiratory panel and negative chest x-ray. She will be given a dose of IM Solu-Medrol prior to discharge and sent home with a Medrol Dosepak. Patient was strongly advised to follow-up with her primary care provider in the next 1-2 days. Patient verbalizes understanding and is in agreement of plan. Differential Diagnosis Differential diagnosis: Likely upper respiratory infection, sinusitis, viral infection, bronchitis and influenza Lab Data Attestation: I reviewed the patient's lab results. Labs: Lab Results 05/24/24 Range/Units 18:15 Influenza A (RT-PCR) Negative (Negative) Influenza B (RT-PCR) Negative (Negative) RSV (RT-PCR) Negative (Negative) SARS-CoV-2 RNA (RT-PCR) Negative (Negative) Imaging Data Attestation: I personally reviewed and interpreted this imaging study as follows: Radiologist's impression: Impressions Chest X-Ray 05/24/24 19:09 IMPRESSION: No acute cardiopulmonary process. Discharge Plan Discharge Clinical Impression: Upper respiratory infection Patient Disposition: Home, Self-Care Condition: Stable Instructions: Antibiotic Form Additional Instructions: Please return to the ER with an worsening symptoms. Follow-up with primary care provider in the next 2-3 days. Take all medications as prescribed. Patient Language: Pashto Prescriptions: New methylprednisolone [Medrol (Suman)] 4 mg tablets,dose pack See Rx Instructions .ROUTE .COMPLEX Qty: 21 0RF Rx Instructions: for 6 days No Action albuterol sulfate [ProAir HFA] 90 mcg/actuation HFA aerosol inhaler 1 inh inhalation QID PRN (Reason: shortness of breath or wheezing) Qty: 6.7 0RF Qvar RediHaler 40 mcg/actuation HFA aerosol breath activated 1 inh inhalation Q12H tizanidine 2 mg capsule 2 mg PO TID PRN Follow-up/Referrals: Summer,QUINTEN Cedeno [Primary Care Provider] - Time of Disposition: 19:33
[2024-05-24 17:59] VITALS: PULSE 96; RESP 18
[2024-05-24] MEDS: IPRATROPIUM 0.5 MG/ALBUTEROL SULFATE 2.5 MG AMPUL.NEB 3 ML INHALATION (17:59)
[2024-05-24 18:05] VITALS: PULSE 94; RESP 18
[2024-05-24 18:57] LABS: Influenza A QL RT-PCR Negative (Negative); Influenza B QL RT-PCR Negative (Negative); RSV RNA, RT-PCR Negative (Negative); SARS-CoV-2 RNA PCR Negative (Negative)
[2024-05-24] MEDS: methylPREDNISolone SOD SUCC 125 MG VIAL IM (20:01)
[2024-05-24 20:07] VITALS: BP 139/87; PULSE 81; RESP 18; O2SAT 99
--- OUTSIDE RECORDS SUMMARY | 2024-05-29 15:42 | XMS_ITS | Patient Health Summary ---
Author Organization [facility] Address [facility] [place] [address] Care Team Providers Care Java Tech Lead Name Role Phone Unavailable Primary Care Provider Unavailabl e Note from [facility],non-owned Affiliates and Associated Physician Practices is amultiple site organization consisting of ambulatory clinics and hospital sitesin [place], [place], [place] and [place]. This disclosure is being madepursuant to the Care Everywhere program and may not contain all information available regarding this patient. Last updated 18.[facility] Allergies * Etodolac(Unknown) -High Criticality Medications Be aware that medications may not be up to date on this document. Always verify current medications with the patient. No known medications Active Problems Problem Noted Date Diagnosed Date with poor obstetric history 01/18/2009 Obesity affecting , antepartum 01/19/20 09 Previous delivery, antepartum condition or complication 01/18/2009 Social History Tobacco Use Types Packs/Day Years Used Date Smoking Tobacco: Every Day Cigarettes 1 8 Alcohol Use Standard Drinks/Week Comments Yes 0 (1 standard drink = 0.6 oz pur e alcohol) occ use. not during preg Sex and Gender Information Value Date Recorded Sex Assigned at Not on file Gender Identity Not on file Sexual Orientation Not on file Last Filed Vital Signs Vital Sign Reading Time Taken Comments Blood Pressure 106/56 01/26/2009 10:40 AM CDT Pulse 92 01/26/2009 10:40 AM CDT Temperature - - Respiratory Rate 20 01/26/2009 10:40 AM CDT Oxygen Saturation - - Inhaled Oxygen Concentration - - Weight 98 kg (216 lb) 01/19/2009 10:55 AM CDT Height 154.9 cm (5' 1 ) 01/12/2009 10:45 AM CDT Body Mass Index 40.81 01/12/2009 10:45 AM CDT Procedures * CULTURE URINE(Performed 11/02/2013) * URINALYSIS OBSTETRICS - POINT OF CARE(Performed 01/19/2009) * URINALYSIS - POINT OF CARE(Performed 01/05/2009) Performed for with Other Poor Obstetric History (HCC) * KETO DIASTIX - POINT OF CARE (IP)(Performed 01/05/2009) Performed for with Other Poor Obstetric History (HCC) * KETO DIASTIX - POINT OF CARE (IP)(Performed 12/01/2008) Performed for with Other Poor Obstetric History (HCC) * URINALYSIS - POINT OF CARE(Performed 12/01/2008) Performed for with Other Poor Obstetric History (HCC) * KETO DIASTIX - POINT OF CARE (IP)(Performed 08/10/2008) Performed for with Other Poor Obstetric History (HCC) * URINALYSIS - POINT OF CARE(Performed 08/10/2008) Performed for with Other Poor Obstetric History (HCC) Results * (ABNORMAL) CULTURE URINE (11/02/2013 1:00 AM CDT) Culture Urine Less than 10,000 CFU/ML of Normal Urogenital/ Skin Elba [facility] Comment:. Culture Urine REBEKAH ALBICANS(A) [facility] Comment:Numeric Value - 300 CFU/ML Rebekah Albicans Urine specimen (specimen) URINE SPECIMEN OBTAINED BY CLEAN CATCH PROCEDURE / Unknown 11/02/2013 1:00 AM CDT 11/02/2013 8:44 AM CDT Narrative [facility] - 11/04/2013 4:33 PM CDT AndersonSpecimen#[id number] Cameron Loc/Rm/Bed: LDR/105/00 CLN CATCH U Historical Provider LAB - MICROBIOLOG Y ORDERABLES [address] [phone] * URINALYSIS OBSTETRICS - POINT OF CARE (01/19/2009 1:00 PM CDT) Glucose UA negative Negative [facility] Bilirubin UA negative Negative [facility] PO CT TESTING Ketone UA negative Negative [facility] Specific [place] UA POCT 1.025 1.000 - 1.030 [facility] Blood UA negative Negative [facility] pH UA 6.0 5.0 - 8.0 pH units [facility] Protein UA negative Negative [facility] Urobilinogen UA 0.2 0.2 - 1.0 EU/dL [facility] Nitrite UA negative Negative [facility] Leukocyte UA negative Negative [facility] PO CT TESTING QC Verified yes Yes [facility] POC T TESTING Urine specimen (specimen) URINE / Unknown 01/19/2009 1:00 PM CDT Rual Barker MD LAB - POINT OF CARE ORDERABLES Performing Organization Address City/[facility] Co de Phone Number [facility] POCT [facility] [id number] [place] [address] * KETO DIASTIX - POINT OF CARE (01/05/2009 10:30 AM CDT) Only the most recent of3 resultswithin the time period is included. Pathologist [facility] Ketone UA Not Detected Not Detected mg/dl [facility] Glucose UA Not Detected Not Detected mg/dl [facility] Comment Glucose UA: This test was performed by Women's Services Staff [facility] URINE / Unknown 01/05/2009 1 0:30 AM CDT Only Default LAB - POINT OF CARE ORDERABLES Performing Organization Address [facility] Co de Phone Number [facility] [address] [place] [address] * URINALYSIS - POINT OF CARE (01/05/2009 10:30 AM CDT) Only the most recent of3 resultswithin the time period is included. Leukocyte UA Not Detected Not Detected /ul [facility] Protein UA Not Detected Not Detected mg/dl [facility] Glucose UA Not Detected Not Detected mg/dl [facility] Blood UA Not Detected Not Detected /ul [facility] Nitrite UA Not Detected Not Detected [facility] Comment Test performed by [facility] Women's Services Staff. [facility] URINE / Unknown 01/05/2009 1 0:30 AM CDT Only Default LAB - POINT OF CARE ORDERABLES Performing Organization Address City/State/[facility] Co de Phone Number [facility] [address] [place] [address]
--- OUTSIDE RECORDS SUMMARY | 2024-05-29 15:42 | XMS_ITS | Referral Summary ---
Author Organization [facility] Address [address] [place] [address] Care Team Providers Care Bonsai Culturist Name Role Phone Unavailable Primary Care Provider Unavailabl e Source Comments [facility],non-owned Affiliates and Associated Physician Practices is amultiple site organization consisting of ambulatory clinics and hospital sitesin [place], [place], [place] and [place]. This disclosure is being madepursuant to the Care Everywhere program and may not contain all information available regarding this patient. Last updated 18.[facility] Allergies Active Allergy Reactions Criticality Noted Date Comments Etodolac Unknown High 01/12/2009 Causes dehydration Medications Be aware that medications may not be up to date on this document. Always verify current medications with the patient. No known medications Active Problems Problem Noted Date Diagnosed Date with poor obstetric history 01/18/2009 Overview (12/01/2016): IMO Update 12/08/2016 Obesity affecting , antepartum 01/19/20 09 Overview (04/17/2015): Previous delivery, antepartum condition or complication 01/18/2009 [...] Mass Index 40.81 01/12/2009 10:45 AM CDT Plan of Treatment Not on file
--- OUTSIDE RECORDS SUMMARY | 2024-05-29 15:42 | XMS_ITS | Encounter Summary ---
Author Organization [facility] Address [facility] [place] [address] Care Team Providers Care Custom Shoe Designer And Maker Name Role Phone Unknown, Provider Primary Care Provider Unavaila ble Encounter Details Date Type Department Care Team (Latest Contact Info) Description 10/06/2008 12:49 PM CDT - 10/07/2008 11:59 PM CDT Hospital Encounter [facility] Default [address] [place] [address] Milton Bang MD [address] [place] [phone] Diagnostic Discharge Disposition: Home or Self Care Social History Tobacco Use Types Packs/Day Years Used Date Smoking Tobacco: Never Assessed Sex and Gender Information Value Date Recorded Sex Assigned at Not on file Gender Identity Not on file Sexual Orientation Not on file documented as of this encounter Plan of Treatment Not on file documented as of this encounter Visit Diagnoses Not on filedocumented in this encounter Care Teams Custom Shoe Designer And Maker Relationship Specialty Start Date End Date Unknown, Provider PCP - General 08/10/08 10/27/13 documented as of this encounter
--- OUTSIDE RECORDS SUMMARY | 2024-05-29 15:42 | XMS_ITS | Encounter Summary ---
Author Organization [facility] Address [address] [place] [address] Care Team Providers Care Commodity Merchant Name Role Phone Unknown, Provider Primary Care Provider Cieraa ble Encounter Details Date Type Department Care Team (Latest Contact Info) Description 01/08/2009 12:01 AM CDT - 02/07/2009 11:59 PM CDT Hospital Encounter Maternal & Care at [facility] [address] , [address] [place] [address] Default, Only Milton Bang MD [address] [place] [phone] Diagnostic Discharge Disposition: Home or Self Care Social History Tobacco Use Types Packs/Day Years Used Date Smoking Tobacco: Every Day Cigarettes 1 8 Alcohol Use Standard Drinks/Week Comments Yes 0 (1 standard drink = 0.6 oz pur e alcohol) occ use. not during preg Comments Yes Sex and Gender Information Value Date Recorded Sex Assigned at Not on file Gender Identity Not on file Sexual Orientation Not on file documented as of this encounter Plan of Treatment Not on file documented as of this encounter Visit Diagnoses Not on filedocumented in this encounter Care Teams Commodity Merchant Relationship Specialty Start Date End Date Unknown, Provider PCP - General 08/10/08 10/27/13 documented as of this encounter
--- OUTSIDE RECORDS SUMMARY | 2024-05-29 15:42 | XMS_ITS | Encounter Summary ---
Author Organization [facility] Address [address] [place] [address] Care Team Providers Care Retinal Surgeon Name Role Phone Unknown, Provider Primary Care Provider Unavaila ble Encounter Details Date Type Department Care Team (Latest Contact Info) Description 02/08/2009 12:01 AM CDT - 02/08/2009 5:36 PM CDT Hospital Encounter Maternal & Care at [facility] [address] , [address] [place] [address] Milton Bang MD [address] [place] [phone] Diagnostic Discharge Disposition: Home or Self Care [...] on filedocumented in this encounter Care Teams Retinal Surgeon Relationship Specialty Start Date End Date Unknown, Provider PCP - General 08/10/08 10/27/13 documented as of this encounter
--- OUTSIDE RECORDS SUMMARY | 2024-05-29 15:42 | XMS_ITS | Encounter Summary ---
Author Organization [facility] Address [facility] [place] [address] Care Team Providers Care Yield Clerk Name Role Phone Unknown, Provider Primary Care Provider Unavaila ble Reason for Visit * Reason Comments Ultrasound FAD NST Encounter Details Date Type Department Care Team (Latest Contact Info) Description 01/26/2009 10:30 AM CDT M Procedure Visit Maternal & Care at [facility] [id number] [place] [address] , [address] [place] [address] Previous Delivery, Antepartum Condition or Complication (HCC); Obesity-Antepartum (HCC); Hx of Maternal HELLP Syndrome, Currently (HCC) Social History Tobacco Use Types Packs/Day Years [...] on file documented as of this encounter Last Filed Vital Signs Vital Sign Reading Time Taken Comments Blood Pressure 106/56 01/26/2009 10:40 AM CDT Pulse 92 01/26/2009 10:40 AM CDT Temperature - - Respiratory Rate 20 01/26/2009 10:40 AM CDT Oxygen Saturation - - Inhaled Oxygen Concentration - - Weight - - Height - - Body Mass Index - - documented in this encounter Plan of Treatment Scheduled Orders Name Type Priority Associated Diagnoses Orde r Schedule SONOGRAM - LIMITED MATRNL MED Routine Previous Delivery, Antepartum Condition or Complication (HCC) Obesity-Antepartum (HCC) Expected: 01/26/2009, Expires: 01/24/2010 documented as of this encounter Visit Diagnoses Diagnosis Previous delivery, antepartum condition or complication (HCC) Previous delivery, antepartum condition or complication Obesity complicating , childbirth, or the puerperium, antepartum condition or complication(649.13) (HCC) Obesity complicating , childbirth, or the puerperium, antepartum condition or complication Hx of maternal HELLP syndrome, currently (HCC) with other poor obstetric history documented in this encounter Care Teams Yield Clerk Relationship Specialty Start Date End Date Unknown, Provider PCP - General 08/10/08 10/27/13 documented as of this encounter
--- OUTSIDE RECORDS SUMMARY | 2024-05-29 15:42 | XMS_ITS | Data Portability ---
Author Organization [facility] Address [address] [place] [address] Care Team Providers Care Hand Former Helper Name Role Phone PAO AGGARWAL Primary Care Provider [phone] Assessment No assessment recorded. Plan of Treatment Reminders Order Date Submit Date Provider Last Modified By Organization Details Last Modified Time Details Appointments None recorded. Lab TSH + free T4, serum 2022 023 [facility], [address] [place] [address], [address], [place], [address], 3 12:13:54 CMP, serum or plasma 2022 023 [facility], [address], [place], [address], 3 19:09:08 lipid panel, serum 2022 023 [facility], [address], [place], [address], 3 19:09:07 CBC w/ auto diff 2022 023 [facility], [address], [place], [address], 3 19:09:09 HbA1c (hemoglobin A1c), blood 2022 023 [facility], [address], [place], [address], 3 12:13:54 vitamin D, 25-hydroxy, total, serum 2022 023 [facility], [address] [facility], [address], [place], [address], 3 12:13:55 magnesium, serum or plasma 2023 024 [facility], [address] [place] [address], [address], [place], [address], 4 10:17:09 CMP, serum or plasma 2023 024 [facility], [address] [place] [address], [address], [place], [address], 4 10:17:08 surgical pathology study 2023 024 [facility], [address] [place] [address], [address], [place], [address], 4 14:34:14 Referral obstetricia n and gynecologis t referral 2022 023 [facility], [address] [place], [address], 3 11:20:11 hourly manager referral 2023 024 [email or web address] Derrek Campbell [facility], [address], [address], [place], [address], 4 07:52:57 obstetricia n and gynecologis t referral 2023 024 [email or web address] Javan Zamorano, [address], [address], [place], [address], 4 07:55:49 Procedures None recorded. Surgeries None recorded. Imaging MAMMO, screening, bilateral [address] (Cardiology & Emg), [address] [facility] [address], [place], [address], 3 16:10:12 MAMMO, screening, bilateral [address] - Breast Ctr, [address], [place], [address], 4 07:56:54 US, axilla [address] (Imaging), [address] [facility] [address], [place], [address], 4 07:56:53 MAMMO, diagnostic, bilateral [address] [facility], [address], [place], [address], 4 07:52:52 Medication Orders amoxicillin 875 mg-potassiu m clavulanate 125 mg tablet 2022 023 [id number], [address] [facility], [place], [place], [address], 4 16:17:55 albuterol sulfate HFA 90 mcg/actuati on aerosol inhaler 2022 023 [id number], [address] [facility], [place], [place], [address], 3 15:43:01 cyclobenzap rine 5 mg tablet 2023 024 [facility], [address] [facility], [place], [address], 4 17:09:50 ibuprofen 800 mg tablet 2023 [facility], [address] [place], [address], 17:09:49 fluticasone propionate 44 mcg/actuati on HFA aerosol inhaler 2023 024 [facility] #37296, [address] [facility], [place], [place], [id number], 17:05:10 beclomethas one diprop 40 mcg/actuati on HFA breath activated aerosol 2023 [facility], [address] [place], [address], 17:02:45 malathion 0.5 % lotion 2023 024 [id number], [address] [place], [address], 16:58:16 tizanidine 2 mg tablet 2023 024 [facility], [address] [place], [address], 16:07:24 nicotine 14 mg/24 hr daily transdermal patch 2023 024 [facility], [address] [place], [address], 16:01:57 Patient TargetsNo targets recorded. Patient Instructions Encounter Date Encounter Id Patient Instructions Last Modified By Organization Details Last Modified Time 03/12/2023 [id number] Quitting Tobacco : Care Instructions [email or web address] Not available 03/12/2023 15:42:25 A healthy lifestyle: care instructions [email or web address] Not available 03/12/2023 15:42:25 12/06/2023 [id number] diverticulitis: care instructions [email or web address] Not available 12/10/2023 17:13:54 learning about diverticulosis and diverticulitis kbarbero Not available 12/10/2023 17:13:53 04/08/2024 [id number] Quitting Tobacco : Care Instructions [email or web address] Not available 04/08/2024 16:01:52 Reason for Referral Traffic Investigator And Gynecologis t Referral for Screening for malignant neoplasm of cervix Referring Physician: Pao Aggarwal [facility], Encounter Date: 03/12/2023 Solar Sales Associate Referral for Pain in right foot Referring Physician: Pao Aggarwal [facility], Encounter Date: 04/08/2024 Traffic Investigator And Gynecologis t Referral for Screening for malignant neoplasm of cervix Referring Physician: Pao Aggarwal [facility], Encounter Date: 04/08/2024 Results Created Date Observation Date Name Description Value Unit Range Abnormal Flag Note LastModifiedBy Organization Detail LastModifiedTime 03/12/2003/12/2023 LIPID PANEL WITH LDL/H DL RATIO cholesterol, total 148 mg/dL 100-19 9 Not Available [facility] Department [address] [place], [address], 03/12/2023 19:09:07 03/12/2003/12/2023 LIPID PANEL WITH LDL/H DL RATIO triglyceride s 226 mg/dL 0-149 above high normal Not Available [facility] Department [address] [place], [address], 03/12/2023 19:09:07 03/12/2003/12/2023 LIPID PANEL WITH LDL/H DL RATIO HDL cholesterol 28 mg/dL 40-999 below low normal Not Available [facility] Department [address] [place], [address], 03/12/2023 19:09:07 03/12/2003/12/2023 LIPID PANEL WITH LDL/H DL RATIO VLDL cholesterol mayte 45 mg/dL 5-40 above high normal Not Available [facility] Department [address] [place], [address], 03/12/2023 19:09:07 03/12/2001 0403/12/2023 LIPID PANEL WITH LDL/H DL RATIO LDL chol calc (nih) 110 mg/dL 0-99 above high normal Not Available [facility] Department [address] [place], [address], 03/12/2023 19:09:07 03/12/20 23 03/12/2023 LIPID PANEL WITH LDL/H DL RATIO LDL/HDL ratio 3.9 0-3.2 above high normal Not Available [facility] Department [address] [place], [address], 03/12/2023 19:09:07 03/12/2003/12/2023 COMP. METAB OLIC PANEL (14) glucose 118 mg/dL 70-99 above high normal Not Available [facility] Department [address] [place] [address], [address], 03/12/2023 19:09:08 03/12/20 23 03/12/2023 COMP. METAB OLIC PANEL (14) BUN 10 mg/dL 6-24 Not Available [facility] Department [address] [place], [address], 03/12/2023 19:09:08 03/12/20 23 03/12/2023 COMP. METAB OLIC PANEL (14) creatinine 0.80 mg/dL 0.76-1 .27 Not Available [facility] Department [address] [place], [address], 03/12/2023 19:09:08 03/12/2003/12/2023 COMP. METAB OLIC PANEL (14) eGFR 94 >=60 Units for eGFR value s are mL/mi n/1.7 3 The eGFR Calcu latio n has not been valid ated for patie nts under the age of 18. If test resul ts are displ ayed for a patie nt under the age of 18, disre jenniffer that value . Not Available [facility] Department [address] [place] [address], [address], 03/12/2023 19:09:08 03/12/20 23 03/12/2023 COMP. METAB OLIC PANEL (14) BUN/creatini ne ratio 12 9-23 Not Available [facility] Department [address] [place], [address], 03/12/2023 19:09:08 03/12/20 23 03/12/2023 COMP. METAB OLIC PANEL (14) sodium 145 mmol/ L 134-14 4 above high normal Not Available [facility] Department [address] [place], [address], 03/12/2023 19:09:08 03/12/2003/12/2023 COMP. METAB OLIC PANEL (14) potassium 3.4 mmol/ L 3.5-5. 2 below low normal Not Available [facility] Department [address] [place], [address], 03/12/2023 19:09:08 03/12/20 23 03/12/2023 COMP. METAB OLIC PANEL (14) chloride 109 mmol/ L 96-106 above high normal Not Available [facility] Department [address] [place], [address], 03/12/2023 19:09:08 03/12/20 23 03/12/2023 COMP. METAB OLIC PANEL (14) carbon dioxide, total 24 mmol/ L 20-29 Not Available [facility] Department [address] [place], [address], 03/12/2023 19:09:08 03/12/20 23 03/12/2023 COMP. METAB OLIC PANEL (14) calcium 8.9 mg/dL 8.7-10 .2 Not Available [facility] Department [address] [place], [address], 03/12/2023 19:09:08 03/12/20 23 03/12/2023 COMP. METAB OLIC PANEL (14) protein, total 6.8 g/dL 6.0-8. 5 Not Available [facility] Department [address] [place], [address], 03/12/2023 19:09:08 03/12/20 23 03/12/2023 COMP. METAB OLIC PANEL (14) albumin 4.0 g/dL 3.9-4. 9 Not Available [facility] Department [address] [place], [address], 03/12/2023 19:09:08 03/12/20 23 03/12/2023 COMP. METAB OLIC PANEL (14) globulin, total 2.8 g/dL 1.5-4. 5 Not Available [facility] Department [address] [place], [address], 03/12/2023 19:09:08 03/12/20 23 03/12/2023 COMP. METAB OLIC PANEL (14) A/G ratio 1.0 1.2-2. 2 below low normal Not Available [facility] Department [address] [place], [address], 03/12/2023 19:09:08 03/12/20 23 03/12/2023 COMP. METAB OLIC PANEL (14) bilirubin, total 0.2 mg/dL 0.0-1. 2 Not Available [facility] Department [address] [place], [address], 03/12/2023 19:09:08 03/12/20 23 03/12/2023 COMP. METAB OLIC PANEL (14) alkaline phosphatase 76 IU/L 44-121 Not Available [facility] Department [address] [place], [address], 03/12/2023 19:09:08 03/12/20 23 03/12/2023 COMP. METAB OLIC PANEL (14) AST (SGOT) 11 IU/L 0-40 Not Available [facility] Department [address] [place], [address], 03/12/2023 19:09:08 03/12/2003/12/2023 COMP. METAB OLIC PANEL (14) ALT (SGPT) 11 IU/L 0-32 Not Available [facility] Department [address] [place], [address], 03/12/2023 19:09:08 03/12/20 23 03/12/2023 CBC WITH DIFFE RENTI AL/PL ATELE T WBC 13.4 x10e3 /uL 3.4-10 .8 above high normal Not Available [facility] Department [address] [place], [address], 03/12/2023 19:09:09 03/12/2003/12/2023 CBC WITH DIFFE RENTI AL/PL ATELE T RBC 4.92 x10e6 /uL 3.77-5 .28 Not Available [facility] Department [address] [place], [address], 03/12/2023 19:09:09 03/12/2003/12/2023 CBC WITH DIFFE RENTI AL/PL ATELE T hemoglobin 15.5 g/dL 11.1-1 5.9 Not Available [facility] Department [address] [place], [address], 03/12/2023 19:09:09 03/12/2003/12/2023 CBC WITH DIFFE RENTI AL/PL ATELE T hematocrit 43.7 % 34.0-4 6.6 Not Available [facility] Department [address] [place], [address], 03/12/2023 19:09:09 03/12/2003/12/2023 CBC WITH DIFFE RENTI AL/PL ATELE T MCV 89 fL 79-97 Not Available [facility] Department [address] [place], [address], 03/12/2023 19:09:09 03/12/2003/12/2023 CBC WITH DIFFE RENTI AL/PL ATELE T MCH 31.5 pg 26.6-3 3.0 Not Available [facility] Department [address] [place], [address], 03/12/2023 19:09:09 03/12/20 23 03/12/2023 CBC WITH DIFFE RENTI AL/PL ATELE T MCHC 35.5 g/dL 31.5-3 5.7 Not Available [facility] Department [address] [place], [address], 03/12/2023 19:09:09 03/12/20 23 03/12/2023 CBC WITH DIFFE RENTI AL/PL ATELE T RDW 13.0 % 11.5-1 4.5 Not Available [facility] Department [address] [place], [address], 03/12/2023 19:09:09 03/12/20 23 03/12/2023 CBC WITH DIFFE RENTI AL/PL ATELE T platelets 277 x10e3 /uL 150-45 0 Not Available [facility] Department [address] [place], [address], 03/12/2023 19:09:09 03/12/2003/12/2023 CBC WITH DIFFE RENTI AL/PL ATELE T neutrophils 67 % notest b. Not Available [facility] Department [address] [place], [address], 03/12/2023 19:09:09 03/12/20 23 03/12/2023 CBC WITH DIFFE RENTI AL/PL ATELE T lymphs 25 % notest b. Not Available [facility] Department [address] [place], [address], 03/12/2023 19:09:09 03/12/2003/12/2023 CBC WITH DIFFE RENTI AL/PL ATELE T monocytes 3 % notest b. Not Available [facility] Department [address] [place], [address], 03/12/2023 19:09:09 03/12/20 23 03/12/2023 CBC WITH DIFFE RENTI AL/PL ATELE T eos 4 % notest b. Not Available [facility] Department [address] [place], [address], 03/12/2023 19:09:09 03/12/20 23 03/12/2023 CBC WITH DIFFE RENTI AL/PL ATELE T basos 1 % notest b. Not Available [facility] Department [address] [place], [address], 03/12/2023 19:09:09 03/12/2003/12/2023 CBC WITH DIFFE RENTI AL/PL ATELE T neutrophils (absolute) 8.9 x10e3 /uL 1.4-7. 0 above high normal Not Available [facility] Department [address] [place], [address], 03/12/2023 19:09:09 03/12/20 23 03/12/2023 CBC WITH DIFFE RENTI AL/PL ATELE T lymphs (absolute) 3.3 x10e3 /uL 0.7-3. 1 above high normal Not Available [facility] Department [address] [place], [address], 03/12/2023 19:09:09 03/12/2003/12/2023 CBC WITH DIFFE RENTI AL/PL ATELE T monocytes(ab solute) 0.5 x10e3 /uL 0.1-0. 9 Not Available [facility] Department [address] [place], [address], 03/12/2023 19:09:09 03/12/2003/12/2023 CBC WITH DIFFE RENTI AL/PL ATELE T eos (absolute) 0.5 x10e3 /uL 0.0-0. 4 above high normal Not Available [facility] Department [address] [place], [address], 03/12/2023 19:09:09 03/12/20 23 03/12/2023 CBC WITH DIFFE RENTI AL/PL ATELE T baso (absolute) 0.1 x10e3 /uL 0.0-0. 2 Not Available [facility] Department [address] [place], [address], 03/12/2023 19:09:09 03/12/2003/12/2023 CBC WITH DIFFE RENTI AL/PL ATELE T immature granulocytes 0.3 % notest b. Not Available [facility] Department [address] [place], [address], 03/12/2023 19:09:09 03/12/2003/12/2023 CBC WITH DIFFE RENTI AL/PL ATELE T immature grans (abs) 0.0 x10e3 /uL 0.0-0. 1 Not Available [facility] Department [address] [place], [address], 03/12/2023 19:09:09 03/12/2003/12/2023 CBC WITH DIFFE RENTI AL/PL ATELE T NRBC 0 % 0-0 Not Available [facility] Department [address] [place], [address], 03/12/2023 19:09:09 03/12/2003/13/2023 TSH+F REE T4 TSH 0.853 uIU/m L 0.450- 4.500 Not Available [facility] ([facility]) [address] [facility], [place], [address], 03/13/2023 12:13:54 03/12/2003/13/2023 TSH+F REE T4 T4,free(dire ct) 1.40 NG/dL 0.82-1 .77 Not Available [facility] ([facility]) [address] [facility], [place], [address], 03/13/2023 12:13:54 03/12/20 23 03/13/2023 HEMOG LOBIN A1C hemoglobin A1C 5.0 % 4.8-5. 6 Predi abete s: 5.7 - 6.4 Diabe etienne: >6.4 Glyce zainab contr ol for adult s with diabe etienne: <7.0 Not Available [facility] ([facility]) [address] [facility], [place], [address], 03/13/2023 12:13:54 03/12/20 23 03/13/2023 VITAM IN D, 25-HY DROXY vitamin D, 25-hydroxy 29.9 NG/mL 30.0-1 00.0 below low normal Vitam in D defic iency has been defin ed by the Insti tute of Medic ine and an Endoc rine Socie ty pract ice guide line as a level of serum 25-OH vitam in D less than 20 ng/mL (1,2) . The Endoc rine Socie ty went on to furth er defin e vitam in D insuf ficie ncy as a level betwe en 21 and 29 ng/mL (2). 1. IOM (Inst itute of Medic ine). 2009. Dieta ry refer ence audrey es for calci um and D. Bo amaya [place]: The [facility] Press . 2. Alex yost MF, Dajuan ey [place], Ismael off-F errar i ISABEL, et al. Evalu ation , treat ment, and preve ntion of vitam in D defic iency : an Endoc rine Socie ty clini mayte pract ice guide line. JCEM. 2010; 96(7) :1911 -30. Not Available [facility] ([facility]) [address] [facility], [place], [address], 03/13/2023 12:13:55 11/13/19 24 11/15/2023 COMP. METAB OLIC PANEL (14) glucose 77 mg/dL 70-99 Not Available [facility] ([facility]) [address] [facility], [place], [address], 11/15/2023 10:17:08 11/13/19 24 11/15/2023 COMP. METAB OLIC PANEL (14) BUN 14 mg/dL 6-24 Not Available [facility] ([facility]) [address] [facility] [place], [address], 11/15/2023 10:17:08 11/13/19 24 11/15/2023 COMP. METAB OLIC PANEL (14) creatinine 1.13 mg/dL 0.57-1 .00 above high normal Not Available [facility] ([facility]) [address] [facility] [place], [address], 11/15/2023 10:17:08 11/13/19 24 11/15/2023 COMP. METAB OLIC PANEL (14) eGFR 62 mL/mi n/1.7 3 >59 Not Available [facility] ([facility]) [address] [facility] [place], [address], 11/15/2023 10:17:08 11/13/19 24 11/15/2023 COMP. METAB OLIC PANEL (14) BUN/creatini ne ratio 12 9-23 Not Available [facility] ([facility]) [address] [facility] [place], [address], 11/15/2023 10:17:08 11/13/19 24 11/15/2023 COMP. METAB OLIC PANEL (14) sodium 139 mmol/ L 134-14 4 Not Available [facility] ([facility]) [address] [facility] [place], [address], 11/15/2023 10:17:08 11/13/19 24 11/15/2023 COMP. METAB OLIC PANEL (14) potassium 4.3 mmol/ L 3.5-5. 2 Not Available [facility] ([facility]) [address] [facility] [place], [address], 11/15/2023 10:17:08 11/13/19 24 11/15/2023 COMP. METAB OLIC PANEL (14) chloride 101 mmol/ L 96-106 Not Available [facility] ([facility]) [address] [facility] [place], [address], 11/15/2023 10:17:08 11/13/19 24 11/15/2023 COMP. METAB OLIC PANEL (14) carbon dioxide, total 22 mmol/ L 20-29 Not Available [facility] ([facility]) [address] [facility] [place], [address], 11/15/2023 10:17:08 11/13/19 24 11/15/2023 COMP. METAB OLIC PANEL (14) calcium 8.9 mg/dL 8.7-10 .2 Not Available [facility] ([facility]) [address] [facility], [place], [address], 11/15/2023 10:17:08 11/13/19 24 11/15/2023 COMP. METAB OLIC PANEL (14) protein, total 6.6 g/dL 6.0-8. 5 Not Available [facility] ([facility]) [address] [facility] [place], [address], 11/15/2023 10:17:08 11/13/19 24 11/15/2023 COMP. METAB OLIC PANEL (14) albumin 3.9 g/dL 3.9-4. 9 Not Available [facility] ([facility]) [address] [facility] [place], [address], 11/15/2023 10:17:08 11/13/19 24 11/15/2023 COMP. METAB OLIC PANEL (14) globulin, total 2.7 g/dL 1.5-4. 5 Not Available [facility] ([facility]) [address] [facility] [place], [address], 11/15/2023 10:17:08 11/13/19 24 11/15/2023 COMP. METAB OLIC PANEL (14) A/G ratio 1.4 1.2-2. 2 Not Available [facility] ([facility]) [address] [facility], [place], [address], 11/15/2023 10:17:08 11/13/19 24 11/15/2023 COMP. METAB OLIC PANEL (14) bilirubin, total <0.2 mg/dL 0.0-1. 2 Not Available [facility] ([facility]) [address] [facility], [place], [address], 11/15/2023 10:17:08 11/13/19 24 11/15/2023 COMP. METAB OLIC PANEL (14) alkaline phosphatase 86 IU/L 44-121 Not Available [facility]) [address] [facility], [place], [address], 11/15/2023 10:17:08 11/13/19 24 11/15/2023 COMP. METAB OLIC PANEL (14) AST (SGOT) 14 IU/L 0-40 Not Available [facility] ([facility]) [address] [facility], [place], [address], 11/15/2023 10:17:08 11/13/19 24 11/15/2023 COMP. METAB OLIC PANEL (14) ALT (SGPT) 20 IU/L 0-32 Not Available [facility] ([facility]) [address] [facility], [place], [address], 11/15/2023 10:17:08 11/13/19 24 11/15/2023 MAGNE SIUM magnesium 2.1 mg/dL 1.6-2. 3 Not Available [facility] ([facility]) [address] [facility] [place], [address], 11/15/2023 10:17:09 01/03/20 24 01/08/2024 PATHO LOGY JUAN Carranza COMMEN T Mater ial submi tted: . axill a - RIGHT AXILL A. Modif iers: right Not Available [facility] ([facility]) [address] [facility], [place], [address], 01/08/2024 14:34:14 01/03/20 24 01/08/2024 PATHO LOGY REPOR T . COMMEN T Clini viv provi ded ICD-1 0: L91.8 Not Available [facility] ([facility]) [address] [facility], [place], [address], 01/08/2024 14:34:14 01/03/20 24 01/08/2024 PATHO LOGY REPOR T . COMMEN T Diagn osis: FIBRO EPITH ELIAL POLYP . TMZ 01/07 0826 Local Not Available [facility] ([facility]) [address] [facility], [place], [address], 01/08/2024 14:34:14 01/03/20 24 01/08/2024 PATHO LOGY REPOR T . COMMEN T Jasson france d: . Donavon MD, [place] topat holog ist Not Available [facility] ([facility]) [address] [facility], [place], [address], 01/08/2024 14:34:14 01/03/20 24 01/08/2024 PATHO LOGY REPOR T . COMMEN T Gross descr iptio n: . 1 Conta iner, forma eugene-f illed , label ed with patie nt ident ifica tion. RIGHT AXILL A: 1 SHAVE BIOPS Y OF ARCOS-B ROWN SKIN MEASU RING 0.2 X 0.2 X 0.1 CM. THE LESIO N APPEA RS TO INVOL VE THE RADHA N. THE SURGI MAYTE RADHA N IS INKED RED. THE SPECI MEN IS SUBMI TTED INTAC T. IT IS SUBMI TTED ENTIR MURALI IN CASSE TTE(S ) A1. THE SPEES SEN MAY FRAGM ENT DURIN G PROCE SSING . THE SPECI MEN MAY NOT SURVI VE PROCE SSING . KAYLIN/D RA 01/07 0826 Local Not Available [facility] ([facility]) [address] [facility], [place], [address], 01/08/2024 14:34:14 01/03/20 24 01/08/2024 PATHO LOGY REPOR T . COMMEN T Patho logis t provi ded ICD-1 0: L91.9 Not Available [facility] ([facility]) [address] [facility], [place], [address], 01/08/2024 14:34:14 01/03/20 24 01/08/2024 PATHO LOGY REPOR T . COMMEN T CPT . 92526 1 Not Available [facility] ([facility]) [address] [facility], [place], [address], 01/08/2024 14:34:14 11/07/19 24 11/06/2023 XR, chest , 2 view No observ ation record ed. [address], [address], 11/12/2023 10:39:15 11/15/19 24 11/15/2023 CT, abdom en + pelvi s, w/ contr ast No observ ation record ed. [address], [address], 11/15/2023 15:51:03 01/22/20 24 01/22/2024 US, axill a No observ ation record ed. [address] [place], [address], 01/22/2024 16:37:59 04/24/20 24 04/24/2024 MAMMO , diagn ostic , bilat eral No observ ation record ed. [facility] [address], [place], [address], 04/27/2024 12:11:37 05/25/20 24 05/24/2024 XR, chest , 2 view No observ ation record ed. [email or web address] [facility] [address], [place], [address], 05/26/2024 09:16:27 Result Notes None recorded. Problems Name Problem SNOMED Code Status Onset Date Resolution Date Notes Provider Name and Address Organization Details Recorded Time Anemia 505726277 Active Ewa Esqueda [place] null, [place] [facility] 5 10:50:39 Fibromyalgia 781235997 Active 2022 Priya Griffiths [place] null, [place] [facility] 3 15:21:52 Mild intermittent asthma 514582255 Active 2022 QUINTEN ALEXANDER Attn: Patric wheatley,[address] [facility], [place], [address], [place] [facility] 3 12:38:16 Vitamin D deficiency 74865116 Active 2022 QUINTEN ALEXANDER Attn: Patric g,[address] [facility], [place], [place], [address] [facility] 3 12:38:21 Smoker 06433845 Active 2022 QUINTEN ALEXANDER Attn: Accountin g,[address] [facility], [place], [address], [place] [facility] 3 12:38:19 Obesity 768095854 Active 2022 QUINTEN ALEXANDER Attn: Patric g,[address] [facility], [place], [address], [place] [facility] 3 12:38:18 Diverticulitis of sigmoid colon 594997317 Active 2023 QUINTEN ALEXANDER Attn: Patric wheatley,[address] [facility], [place], [address], [place] [facility] 4 17:13:57 Notes:Some problems listed i n Document: #[id number] could not be added to this patient's chart. Please review this document and add these problems to the patient's chart manually as needed. Problem Notes None recorded. Procedures Surgical History Date Name Laterality Status Provider Name and Address Organization Details Recorded Time 4 Skin Tag Removal completed QUINTEN ALEXANDER Attn: Accounting,[address] [facility], [place], [address], [place] [facility] 01/03/2024 17:06:14 7 endometrial ablation completed QUINTEN ALEXANDER Attn: Accounting,[address] [facility], [place], [address], [place] [facility] 03/12/2023 15:34:16 4 section completed QUINTEN ALEXANDER Attn: Accounting,[address] [facility], [place], [address], [place] [facility] 01/03/2024 16:49:30 4 ligation of fallopian tube completed QUINTEN ALEXANDER Attn: Accounting,[address] [facility], [place], [address], [place] [facility] 01/03/2024 16:49:55 9 Caesarean Section completed Ewa [place]eda [place] [facility] 08/04/2014 10:50:39 0 Caesarean Section completed [place] [facility] 08/04/2014 10:50:39 Imaging Results Imaging Date Name Status LastModified by Organiz ation Details LastModified Time 11/06/2023 XR, chest, 2 view completed [place] [address], [place], [address], 11/12/2023 10:39:15 11/15/2023 CT, abdomen + pelvis, w/ contrast completed [facility] [address], [place], [address], 11/15/2023 15:51:03 01/22/2024 US, axilla completed [facility] [address], [place], [address], 01/22/2024 16:37:59 04/24/2024 MAMMO, diagnostic, bilateral completed [facility] [address], [place], [address], 04/27/2024 12:11:37 05/24/2024 XR, chest, [address], [place], [address], 05/26/2024 09:16:27 Procedure Notes None recorded. Medical Equipment None Reported. Allergies Allergen ID Allergen Name Allergen Category Reaction Reaction Severity Criticality Documentation Date Start Date Code Code System Note Provider Name and Address Organization Details Recorded Time 38966 Lodine medicatio n other severe Not available 08/04/2014 8 RxNorm Ewa Esqueda MA [facility], [place] - [place] 5 10:26:18 Medications Name Sig Start Date Stop Date Status Note LastModified by Organization Details LastModified Time metronidazo l tab 500mgmetron idazole 06/17 completed Not Available Not Available Not Available montelukast sodium 10 mg tabs 06/17 completed Not Available Not Available Not Available triamcinolo ne acetonide 0.1 % oint 06/17 completed Not Available Not Available Not Available selenium sulfide 2.5 % lotn 06/17 completed Not Available Not Available Not Available doxycyc mono cap 100mgdoxycy french monohydrate 06/17 completed Not Available Not Available Not Available cephalexin 500 mg caps 06/17 completed Not Available Not Available Not Available naproxen 500 mg tabs 06/17 completed Not Available Not Available Not Available naproxen tab 500mgnaprox en 06/17 completed Not Available Not Available Not Available tramadol hcl 50 mg tabs 06/17 completed Not Available Not Available Not Available nicotine 14 mg/24 hr daily transdermal patch Apply 1 patch every day by transderm al route as directed for 30 days, for smoking cessation . active Not Available Not Available No t Available tizanidine 2 mg tablet Take 1 tablet every 6-8 hours by oral route as needed for 14 days, for muscle spasm. active Not Available Not Available No t Available ibuprofen 800 mg tablet TAKE 1 TABLET BY MOUTH THREE TIMES DAILY WITH MEALS FOR BACK PAIN FOR 14 DAYS active Not Available Not Available No t Available fluconazole 150 mg tablet TAKE 1 TABLET BY MOUTH EVERY 72 HOURS A ONE TIME DOSE active Not Available Not Available No t Available Keflex 500 mg capsule Take 1 capsule 3 times a day by oral route for 10 days. 03/12 completed Not Available Not Available Not Available prednisone 20 mg tablet 11/16 completed Not Available Not Available Not Available metronidazo le 500 mg tablet TAKE 1 TABLET BY MOUTH EVERY 8 HOURS FOR 7 DAYS 12/05 completed Not Available Not Available Not Available ciprofloxac in 500 mg tablet TAKE 1 TABLET BY MOUTH EVERY 12 HOURS FOR 7 DAYS 12/05 completed Not Available Not Available Not Available malathion 0.5 % lotion APPLY TO DRY HAIR RUB GENTLY INTO SCALP UNTIL FULLY WET, LET HAIR AIR DRY AND SHAMPOO AFTER 8-12 HRS active Not Available Not Available No t Available hydrocodone 7.5 mg-acetamin ophen 325 mg tablet TAKE 1 TABLET BY MOUTH EVERY 6 HOURS NEEDED FOR PAIN FOR 3 DAYS 12/05 completed Not Available Not Available Not Available ranitidine 150 mg tablet Take 1 tablet twice a day by oral route. 03/12 completed Not Available Not Available Not Available clotrimazol e-betametha sone 1 %-0.05 % topical cream APPLY CREAM TOPICALLY TO AFFECTED AREA TWICE DAILY active Not Available Not Available No t Available fluticasone propionate 44 mcg/actuati on HFA aerosol inhaler Inhale by inhalatio n route for 30 days. 12/05 completed Not Available Not Available Not Available albuterol sulfate HFA 90 mcg/actuati on aerosol inhaler INHALE 2 PUFFS BY MOUTH EVERY 4-6 HOURS NEEDED 2023 active Not Available Not Available Not Avai lable ondansetron 4 mg disintegrat ing tablet DISSOLVE 1 TABLET IN MOUTH EVERY 6 HOURS NEEDED FOR NAUSEA AND VOMITING FOR 3 DAYS 12/05 completed Not Available Not Available Not Available naproxen 500 mg tablet Take 1 tablet twice a day by oral route as needed. 03/12 completed Not Available Not Available Not Available amoxicillin 875 mg-potassiu m clavulanate 125 mg tablet TAKE 1 TABLET BY MOUTH EVERY 12 HOURS WITH FOOD X 7 DAYS 11/16 completed Not Available Not Available Not Available cyclobenzap rine 5 mg tablet TAKE 1 TABLET BY MOUTH TWICE DAILY FOR 14 DAYS NEEDED FOR BACK SPASM active Not Available Not Available No t Available potassium chloride ER 20 mEq tablet,exte nded release 11/16 completed Not Available Not Available Not Available Qvar RediHaler 40 mcg/actuati on HFA breath activated aerosol INHALE 2 PUFFS BY MOUTH TWICE DAILY DIRECTED FOR ASTHMA FOR 30 DAYS active Not Available Not Available No t Available Vitals Date Recorded Body height Body mass index (BMI) Body weight Oxygen saturation Oxygen saturation in Arterial blood by Pulse oximetry Heart rate Respiratory rate Systolic blood pressure Diastolic blood pressure Provider Name and Address Organization Details Last Updated DateTime 3 154.94 cm 34.1 kg/m2 77687.7 3 g 98 % 98 % 90 /min 16 /min 128 mm[Hg] 88 mm[Hg] Priya Griffiths MA [facility] 3 15:21:13 Date Recorded Body height Respiratory rate Body mass index (BMI) Body weight Oxygen saturation Oxygen saturation in Arterial blood by Pulse oximetry Heart rate Systolic blood pressure Diastolic blood pressure Provider Name and Address Organization Details Last Updated DateTime 4 154.94 cm 16 /min 36.7 kg/m2 66372.0 2 g 98 % 98 % 94 /min 115 mm[Hg] 82 mm[Hg] Priya Griffiths MA [facility] 4 16:51:49 Date Recorded Body height Body mass index (BMI) Body weight Oxygen saturation Oxygen saturation in Arterial blood by Pulse oximetry Heart rate Respiratory rate Systolic blood pressure Diastolic blood pressure Provider Name and Address Organization Details Last Updated DateTime 4 154.94 cm 36.7 kg/m2 14184.6 2 g 99 % 99 % 81 /min 18 /min 123 mm[Hg] 86 mm[Hg] Monserrat Mcmahon MA [facility] 4 16:39:20 Date Recorded Body height Body mass index (BMI) Body weight Oxygen saturation Oxygen saturation in Arterial blood by Pulse oximetry Heart rate Respiratory rate Systolic blood pressure Diastolic blood pressure Provider Name and Address Organization Details Last Updated DateTime 4 154.94 cm 37.1 kg/m2 21547.2 g 97 % 97 % 97 /min 16 /min 121 mm[Hg] 85 mm[Hg] Priya Griffiths MA [facility] 4 16:34:46 Date Recorded Body height Body mass index (BMI) Body weight Oxygen saturation Oxygen saturation in Arterial blood by Pulse oximetry Heart rate Respiratory rate Systolic blood pressure Diastolic blood pressure Provider Name and Address Organization Details Last Updated DateTime 4 154.94 cm 37.5 kg/m2 78029.0 9 g 99 % 99 % 95 /min 16 /min 111 mm[Hg] 78 mm[Hg] Monserrat Mcmahon MA [facility] 4 15:50:46 Social History Question Answer Notes LastModified by Organizat ion Details LastModified Time Tobacco Smoking Status Current Every Day Smoker Ewa Esqueda MA [facility] 08/04/2014 10:50:39 What Is Your Level Of Alcohol Consumption? Occasional [email or web address] Information not available 03/12/2023 What Is Your Level Of Caffeine Consumption? Occasional [email or web address] Information not available 08/04/2014 What Type Of Diet Are You Following? REGULAR Information not available 08/04/2014 Education 12 [email or web address] Information no t available 08/04/2014 What Was The Date Of Your Most Recent Tobacco Screening? 04/08/2024 Information not available 04/08/2024 Seat Belts Used Routinely Yes [email or web address] Information not available 08/04/2014 How Much Tobacco Do You Smoke? 0.5 PPD [email or web address] Information not available 08/04/2014 Has Tobacco Cessation Counseling Been Provided? Yes [email or web address] Information not available 03/12/2023 On What Date Was Tobacco Cessation Counseling Provided? 04/08/2024 Information not available 04/08/2024 How Many Years Have You Smoked Tobacco? 16 [email or web address] Information not available 08/04/2014 Sex: Unknown Functional Status None recorded. Mental Status None recorded. Family History Relationship Description Onset Age of this Age Resolved Age Notes LastModified by Organization Details LastModified Time Mother Hypertensive disorder [email or web address] Not available 2014 10:26:18 Mother Diabetes mellitus [email or web address] Not available 2014 10:26:18 Mother Kidney disease [email or web address] Not available 2014 10:26:18 Medical History Condition Response Heart Problems N Other N Breast Cancer N Thyroid Problems N Kidney or Bladder Problems N GI Problems N Lung Disease N Depression N Acne N Breast Problem N Eating Disorder N Anemia Y Anesthesia Complications N Headaches/Migraines Y Anxiety Disorder N Diabetes N Ovarian Cancer N Blood Transfusions N Arthritis N Polyps N Infertility N Acid Reflux (GERD) N Cancer N Stroke N Abuse/Domestic Violence N Asthma N Endometriosis N High Cholesterol N Hepatitis N Heart Disease N Fibromyalgia N Pre-Eclampsia N Hypertension N Osteoporosis N Kidney Disease N Gynecological History Statement/Question Response Date of Last Mammogram Flow Heavy Date of LMP Sexually Active? Y Menses Monthly Y Date of Last Pap Smear Sexual Problems? N Current Control Method Tubal Ligat ion Age at First Child 20 LMP Definite Obstetrics History GPAL:G 3 P 2 1 0 3 Type Value Full Term 2 Induced 0 Spontaneous 0 Premature 1 Living 3 Ectopics 0 Total 3 Past Encounters Encounter ID Performer Location Encounter Start Date Encounter Closed Date Diagnosis/Indication Diagnosis SNOMED-CT Code Diagnosis ICD10 Code [id number] Osvaldo Hurtado DO [facility] (AB [employer]EL[employer]) [address] [place] [address] 08/04/2014 09:45:08 08/04/2014 15:25:51 Pain in pelvis 20015552 [id number] YESI Lawson NP [facility] [address] [place] [address] 06/17/2018 11:25:42 06/17/2018 13:11:06 Vitamin D deficiency 21245130 E55.9 Pain of le ft hip joint 3117348031 55183 M25.552 Asthma 194415523 J45.90 9 Gastroesop hageal reflux disease 548045356 K21.9 Sacral back pain 0109282 3 M54.5 Body mass index 30+ - obesity 340236904 Z68.37 Pain in toe 617158166 M7 9.017 [id number] QUINTEN ALEXANDER [facility] [address] [place] [address] 03/12/2023 15:16:54 03/12/2023 16:10:11 Smoker 03561369 F17.200 Depression screening 171 990815 Z13.31 Screening for malignant neoplasm of cervix 328614153 Z12.4 Screening for malignant neoplasm of breast 246569382 Z12.39 Obesity 447209152 E66.9 Loss of hair 697043673 L 65.9 Mild inter mittent asthma 686004426 J45.20 Vitamin D deficiency 347 29129 E55.9 Bacterial upper respiratory infection 273193230 A49.9 [id number] QUINTEN ALEXANDER [facility] [address] [place] [address] 11/13/2023 16:40:10 11/13/2023 17:08:11 Mild intermittent asthma 585127610 J45.20 Hypokalemia 12632891 E87 .6 Hypomagnesemia 547877418 E83.42 Spasm of back muscles 20 7925436 M62.830 Depression screening 171 084754 Z13.31 [id number] QUINTEN ALEXANDER [facility] [address] [place] [address] 12/06/2023 16:33:06 12/06/2023 17:10:33 Diverticulitis of sigmoid colon 246293587 K57.32 Mild inter mittent asthma 632394182 J45.20 Depression screening 171 Z13.31 [id number] QUINTEN ALEXANDER [facility] [address] [place] [address] 01/03/2024 16:27:50 01/03/2024 17:00:23 Mass of axilla 735057232 R22.2 Screening for malignant neoplasm of breast 002689448 Z12.39 Skin tag 227049796 L91.8 Pediculosis capitis 8100 0006 B85.0 [id number] QUINTEN ALEXANDER [facility] [address] [place] [address] 04/08/2024 15:41:41 04/08/2024 16:18:22 Depression screening 272177801 Z13.31 Smoker 02972749 F17.200 Spasm of back muscles 20 9763256 M62.830 Pain in right foot 95663 00529 58871 M79.671 Screening for malignant neoplasm of cervix 375526133 Z12.4 Screening for malignant neoplasm of breast 482833373 Z12.39 Health Concerns Section Related Observation LastModified by Organization Detai ls LastModified Time None Recorded Concern Status LastModified by Organization Details LastModified Time None Recorded Advance Directives Directive None Recorded Payers Encounter Date Sequence Insurance Name Policy Number Policy Karimi Covered Member ID Karimi Member ID Guarantor Name 03/12/[address] [place] [address] [id number] Silke Bussa [id number] Silke Bussa 03/12/2023 1 [facility] ON OR AFTER 06/10/2020 - DUAL ELIGIBLE (MEDICARE REPLACEMENT/AD VANTAGE - HMO) Silke M Bussa [id number] Silke Bussa 11/13/2023 1 [facility] [id number] Silke M Bussa [id number] Silke Bussa 11/13/2023 2 [facility] ON OR AFTER 12/08/20 (MEDICAID REPLACEMENT - HMO) Silke Bussa [id number] Silke Bussa 12/06/2023 1 [facility] [id number] Silke M Bussa [id number] Silke Bussa 12/06/2023 2 [place] Silke Bussa [id number] Silke Bussa 01/03/2024 1 [facility] [id number] Silke M Bussa [id number] Silke Bussa 01/03/2024 2 [place] Silke Bussa [id number] Silke Bussa 04/08/2024 1 [facility] [id number] Silke M Bussa [id number] Silke Bussa 04/08/2024 2 [place] [facility] Silke Bussa [id number] Silke Bussa Notes Date Note Type Note Provider Name and Address Organization Details Recorded Time 03/12/2023 text/html Pt presents to establish care as a new patient. H/o Vitamin D deficiency, hair loss, smoker.C/o nasal congestion, chest congestion, rhinorrhea, dry cough, and headaches for the past week. Mild relief with nyquil, dayquil, and mucinex. Denies fevers, chills, SOB, ear pain, sore throat, or sinus tenderness. No sick contacts. Endorses that she has sinus infections twice a year.Concerned for thyroid issues due to hair loss x10 yrs. Reports that her thyroid has been checked multiple times and told everything is normal. QUINTEN ALEXANDER Attn: Accounting, [address] [facility], [place], [address], [facility] 03/13/2023 12:45:26 11/13/2023 text/html Pt presents for ED f/u. Reports she went to ED 1 wk ago for SOB due to no improvement with albuterol inhaler. States that her magnesium and potassium were low and she was given supplement. Endorses that her chest XR was normal, did breathing treatment in ED, finished prednisone and augmentin scripts with improvement of SOB. C/o low back pain/cramping since potassium IV in ED infiltrated her skin. QUINTEN ALEXANDER Attn: Accounting, [address] [facility], [place], [address], [facility] - [facility] 11/17/2023 16:18:45 12/06/2023 text/html Pt presents for ED f/u. Reports three wks ago, she developed nausea, stomach pain, and blood in stool x2 days. States that she went to ED, diagnosed with diverticulitis and discharged home on 2 antibiotics w/ improvement. Endorses that she ate popcorn prior to onset of symptoms. QUINTEN ALEXANDER Attn: Accounting, 1 [facility], [place], [address], [place] [facility] 12/10/2023 17:15:42 01/03/2024 text/html Pt presents for skin tag removal. QUINTEN ALEXANDER Attn: Accounting, 1 [facility], [place], [address], [place] [facility] 01/03/2024 17:09:55 04/08/2024 text/html Pt presents to discuss muscle spasms, quitting smoking, R foot pain, and [employer] referral.C/o muscle cramping to her back, legs, and feet for the past 3 moths. Calf and foot cramping is worse at night. She has been cutting back on her soda intake, drinking more water, and eating foods high in potassium. QUINTEN ALEXANDER Attn: Accounting,[address] [place], [address], [facility] 04/10/2024 09:36:25 OBGyn Episode No OBEpisode recorded.
--- OUTSIDE RECORDS SUMMARY | 2024-05-29 15:42 | XMS_ITS | Encounter Summary ---
Author Organization [facility] Address [facility] [place] [address] Care Team Providers Care Land Measurer Name Role Phone Unknown, Provider Primary Care Provider Unavaila ble Encounter Details Date Type Department Care Team (Latest Contact Info) Description 01/12/2009 10:30 AM CDT MFM Procedure Visit Maternal & Care at [facility] [address] [place] [address] with Other Poor Obstetric History (HCC); Obesity-Antepartum (HCC); Previous Delivery, Antepartum Condition or Complication (HCC) Social History Tobacco Use Types Packs/Day [...] Sign Reading Time Taken Comments Blood Pressure 105/63 01/12/2009 10:45 AM CDT Pulse 81 01/12/2009 10:45 AM CDT Temperature - - Respiratory Rate 20 01/12/2009 10:45 AM CDT Oxygen Saturation - - Inhaled Oxygen Concentration - - Weight - - Height 154.9 cm (5' 1 ) 01/12/2009 10:45 AM CDT Body Mass Index - - documented in this encounter Plan of Treatment Scheduled Orders Name Type Priority Associated Diagnoses Orde r Schedule SONOGRAM - LIMITED MATRNL MED Routine with Other Poor Obstetric History (HCC) Obesity-Antepartum (HCC) Previous Delivery, Antepartum Condition or Complication (HCC) Expected: 01/12/2009, Expires: 01/12/2010 documented as of this encounter Visit Diagnoses Diagnosis with other poor obstetric history(V23.49) (HCC) with other poor obstetric history Obesity complicating , childbirth, or the puerperium, antepartum condition or complication(649.13) (HCC) Obesity complicating , childbirth, or the puerperium, antepartum condition or complication Previous delivery, antepartum condition or complication (HCC) Previous delivery, antepartum condition or complication documented in this encounter Care Teams Land Measurer Relationship Specialty Start Date End Date Unknown, Provider PCP - General 08/10/08 10/27/13 documented as of this encounter
--- OUTSIDE RECORDS SUMMARY | 2024-05-29 15:42 | XMS_ITS | Encounter Summary ---
Author Organization [facility] Address [facility] [place] [address] Care Team Providers Care Skip Pitman Name Role Phone Unknown, Provider Primary Care Provider Unavaila ble Reason for Visit * Reason Comments Consultation Ultrasound FAD NST Encounter Details Date Type Department Care Team (Latest Contact Info) Description 01/19/2009 10:00 AM CDT M Visit Maternal & Care at [facility] [address] [place] [address] , [address] [place] [address] with Other Poor Obstetric History [...] Sign Reading Time Taken Comments Blood Pressure 109/61 01/19/2009 10:55 AM CDT Pulse 79 01/19/2009 10:55 AM CDT Temperature - - Respiratory Rate 20 01/19/2009 10:55 AM CDT Oxygen Saturation - - Inhaled Oxygen Concentration - - Weight 98 kg (216 lb) 01/19/2009 10:55 AM CDT Height - - Body Mass Index 40.81 01/12/2009 10:45 AM CDT documented in this encounter Progress Notes * Lucas Berrios - 01/19/2009 1:40 PM CDTAddended by: LUCAS BERRIOS on: 01/19/2009 1:40:30 PM Modules accepted: Orders * Usman Leonardo RN - 01/19/2009 12:23 PM CDTAddended by: USMAN LEONARDO on: 01/19/2009 12:23:55 PM Modules accepted: Orders * Usman Leonardo RN - 01/19/2009 11:36 AM CDT NST reactive today. documented in this encounter Plan of Treatment Scheduled Orders Name Type Priority Associated Diagnoses Orde r Schedule BIOPHYSICAL PROFILE W NST [facility] MED Routine Previous Delivery, Antepartum Condition or Complication (HCC) with Other Poor Obstetric History (HCC) Obesity-Antepartum (HCC) Expected: 01/19/2009, Expires: 01/18/2010 DOPPLER STUDIES [facility] MED Routine with Other Poor Obstetric History (HCC) Obesity-Antepartum (HCC) Previous Delivery, Antepartum Condition or Complication (HCC) Expected: 02/14/2009, Expires: 01/19/2010 SONOGRAM - COMPLETE [facility] Routine Expected: 02/14/2009, Expires: 01/19/2010 documented as of this encounter Procedures Procedure Name Priority Date/Time Associated Diagnosis Comments URINALYSIS OBSTETRICS - POINT OF CARE Routine 01/19/2009 1:00 PM CDT documented in this encounter Results * URINALYSIS OBSTETRICS - POINT OF CARE (01/19/2009 1:00 PM CDT) Glucose UA negative Negative [facility] POCT TESTING Bilirubin UA negative Negative [facility] PO CT TESTING Ketone UA negative Negative [facility] POCT TESTING Specific [place] UA POCT 1.025 1.000 - 1.030 [facility] [...] URINE / Unknown 01/19/2009 1:00 PM CDT Raul Barker MD LAB - POINT OF CARE ORDERABLES [facility] [address] [place] [address] documented in this encounter Visit Diagnoses Diagnosis with other poor obstetric history(V23.49) (HCC) with other poor obstetric history Obesity complicating , childbirth, or the puerperium, antepartum condition or complication(649.13) (HCC) Obesity complicating , childbirth, or the puerperium, antepartum condition or complication Previous delivery, antepartum condition or complication (HCC) Previous delivery, antepartum condition or complication documented in this encounter Care Teams Skip Pitman Relationship Specialty Start Date End Date Unknown, Provider PCP - General 08/10/08 10/27/13 documented as of this encounter
--- OUTSIDE RECORDS SUMMARY | 2024-05-29 15:42 | XMS_ITS | Encounter Summary ---
Author Organization [facility] Address [address] [place] [address] Care Team Providers Care Deployment Engineer Name Role Phone Unknown, Provider Primary Care Provider Unavaila ble Encounter Details Date Type Department Care Team (Late st Contact Info) Description 02/02/2009 9:00 AM CDT MFM Visit Maternal & Care at [facility] [address] [facility] , [address] [place] [address] Milton Bang MD [address] [place] [address] with Other Poor Obstetric History (HCC); Mild or Unspecified Pre-Eclampsia, Antepartum; Coagulation Def-Antepart (HCC) Social History Tobacco Use Types Packs/Day [...] history(V23.49) (HCC) with other poor obstetric history Mild or unspecified pre-eclampsia, antepartum Coagulation defects complicating , childbirth, or the puerperium, antepartum condition or complication(649.33) (HCC) Coagulation defects complicating , childbirth, or the puerperium, antepartum condition or complication documented in this encounter Care Teams Deployment Engineer Relationship Specialty Start Date End Date Unknown, Provider PCP - General 08/10/08 10/27/13 documented as of this encounter
--- OUTSIDE RECORDS SUMMARY | 2024-05-29 15:42 | XMS_ITS | Encounter Summary ---
Author Organization [facility] Address [address] [place] [address] Care Team Providers Care State Appellate Clerk Name Role Phone Unknown, Provider Primary Care Provider Unavaila ble Encounter Details Date Type Department Care Team (Latest Contact Info) Description 02/23/2009 11:15 AM CDT MFM Procedure Visit Maternal & Care at [facility] [address] , [address] [place] [address] Previous Delivery, Antepartum Condition or Complication (HCC) [...] on file documented as of this encounter Procedure Notes * Amaris Jack RN - 02/23/2009 11:54 AM CDT Pt delivered so did not come for appt. documented in this encounter Plan of Treatment Not on file documented as of this encounter Visit Diagnoses Diagnosis Previous delivery, antepartum condition or complication (HCC)- Primary Previous delivery, antepartum condition or complication documented in this encounter Care Teams State Appellate Clerk Relationship Specialty Start Date End Date Unknown, Provider PCP - General 08/10/08 10/27/13 documented as of this encounter
--- OUTSIDE RECORDS SUMMARY | 2024-05-29 15:42 | XMS_ITS | Encounter Summary ---
Author Organization [facility] Address [facility] [place] [address] Care Team Providers Care Art Appraiser Name Role Phone Unknown, Provider Primary Care Provider Unavaila ble Encounter Details Date Type Department Care Team (Latest Contact Info) Description 11/08/2008 12:01 AM CDT - 12/07/2008 11:59 PM CDT Hospital Encounter [facility] Default [address] [place] [address] Milton Bang MD [address] [place] [phone] Default, Only Diagnostic Discharge Disposition: Home or Self Care Social History Tobacco Use Types Packs/Day Years Used Date Smoking Tobacco: Never Assessed Sex and Gender Information Value Date Recorded Sex Assigned at Not on file Gender Identity Not on file Sexual Orientation Not on file documented as of this encounter Plan of Treatment Not on file documented as of this encounter Procedures Procedure Name Priority Date/Time Associated Diagnosis Comments KETO DIASTIX - POINT OF CARE (IP) Routine 12/01/2008 11:30 AM CDT with Other Poor Obstetric History (HCC) URINALYSIS - POINT OF CARE Routine 12/01/2008 11:30 AM CDT with Other Poor Obstetric History (HCC) documented in this encounter Results * KETO DIASTIX - POINT OF CARE (12/01/2008 11:30 AM CDT) Ketone UA Not Detected Not Detected mg/dl [facility] Glucose UA Detected Not Detected mg/dl [facility] Comment Glucose UA: This test was performed by Women's Services Staff [facility] URINE / Unknown 12/01/2008 1 1:30 AM CDT Only Default LAB - POINT OF CARE ORDERABLES Performing Organization Address City/[facility] Co de Phone Number [facility] [address] [place] [address] * URINALYSIS - POINT OF CARE (12/01/2008 11:30 AM CDT) Leukocyte UA Detected Not Detected /ul [facility] Protein UA Detected Not Detected mg/dl [facility] Glucose UA Detected Not Detected mg/dl [facility] Blood UA Not Detected Not Detected /ul [facility] Nitrite UA Not Detected Not Detected [facility] Comment Test performed by [facility] Women's Services Staff. [facility] URINE / Unknown 12/01/2008 1 1:30 AM CDT Only Default LAB - POINT OF CARE ORDERABLES Performing Organization Address [facility] de Phone Number [facility] [address] [place] [address] documented in this encounter Visit Diagnoses Diagnosis with other poor obstetric history(V23.49) ([facility]) with other poor obstetric history documented in this encounter Care Teams Art Appraiser Relationship Specialty Start Date End Date Unknown, Provider PCP - General 08/10/08 10/27/13 documented as of this encounter
--- OUTSIDE RECORDS SUMMARY | 2024-05-29 15:42 | XMS_ITS | Encounter Summary ---
Author Organization [facility] Address [facility] [place] [place] [address] Care Team Providers Care Range Ecologist Name Role Phone Unknown, Provider Primary Care Provider Unavaila ble Encounter Details Date Type Department Care Team (Latest Contact Info) Description 10/08/2008 12:01 AM CDT - 11/07/2008 11:59 PM CDT Hospital Encounter [facility] Default [address] [place] [address] Milton Bang MD [address] [place] [phone] Diagnostic Discharge Disposition: Home or Self Care [...] on filedocumented in this encounter Care Teams Range Ecologist Relationship Specialty Start Date End Date Unknown, Provider PCP - General 08/10/08 10/27/13 documented as of this encounter
--- OUTSIDE RECORDS SUMMARY | 2024-05-29 15:42 | XMS_ITS | Encounter Summary ---
Author Organization [facility] Address [address] [place] [address] Care Team Providers Care Steel Hanger Name Role Phone Unknown, Provider Primary Care Provider Unavaila ble Encounter Details Date Type Department Care Team (Late st Contact Info) Description 01/12/2009 Orders Only Maternal & Care at [facility] [address] [place] [address] with Other Poor Obstetric History [...] complication documented in this encounter Care Teams Steel Hanger Relationship Specialty Start Date End Date Unknown, Provider PCP - General 08/10/08 10/27/13 documented as of this encounter
--- OUTSIDE RECORDS SUMMARY | 2024-05-29 15:42 | XMS_ITS | Continuity of Care Document ---
Author Organization [facility] Address [address] [place] [address] Care Team Providers Care Inside Sales Supervisor Name Role Phone PAO WHEELER Primary Care Provider Assessment No assessment recorded. Plan of Treatment Reminders Order Date Submit Date Provider Last Modified By Organization Details Last Modified Time Details Appointments None recorded. Lab None recorded. Referral lumber yard worker referral 2023 Derrek Campbell DPM, [address], [address], [place], [address], 4 07:52:57 obstetricia n and gynecologis t referral 2023 [email or web address] Javan Zamorano, [address] [facility], [place], [address], 4 07:55:49 Procedures None recorded. Surgeries None recorded. Imaging MAMMO, diagnostic, bilateral 2023 [email or web address] [facility], [address], [address], [place], [address], 4 07:52:52 Medication Orders tizanidine 2 mg tablet 2023 [facility], [address] [facility] [facility], [place], [address], 4 16:07:24 nicotine 14 mg/24 hr daily transdermal patch 2023 [facility], [address], [place], [address], 16:01:57 Patient TargetsNo targets recorded. Patient Instructions Encounter Date Encounter Id Patient Instructions Last Modified By Organization Details Last Modified Time 04/08/2024 [id number] Quitting Tobacco : Care Instructions [email or web address] Not available 04/08/2024 16:01:52 Reason for Referral Camera Technician Referral for Pain in right foot Referring Physician: Pao Wheeler [facility], Encounter Date: 04/08/2024 Social Work Instructor And Gynecologis t Referral for Screening for malignant neoplasm of cervix Referring Physician: Pao Wheeler [facility], Encounter Date: 04/08/2024 Results Created Date Observation Date Name Description Value Unit Range Abnormal Flag Note LastModifiedBy Organization Detail LastModifiedTime 04/24/20 24 04/24/2024 MAMMO , diagn ostic , bilat eral No observ ation record ed. [facility] [address], [place], [address], 04/27/2024 12:11:37 05/25/20 24 05/24/2024 XR, chest , 2 view No observ ation record ed. [email or web address] [place] [address] [address], [place], [address], 05/26/2024 09:16:27 Result Notes None recorded. Problems Name Problem SNOMED Code Status Onset Date Resolution Date Notes Provider Name and Address Organization Details Recorded Time Anemia 493228800 Active Ewa Esqueda [place] null, [place] - [facility] 5 10:50:39 Fibromyalgia 566803937 Active 2022 Priya Griffiths [place] null, [place] [facility] 3 15:21:52 Mild intermittent asthma 288902384 Active 2022 QUINTEN ALEXANDER Attn: Patric wheatley,[address] [facility], [place], [address] [place] [facility] 3 12:38:16 Vitamin D deficiency 86004983 Active 2022 QUINTEN ALEXANDER Attn: Accountvanessa g,[address], [place], [address], [place] [facility] 3 12:38:21 Smoker 81919950 Active 2022 QUINTEN ALEXANDER Attn: Accountvanessa g,[address], [place], [address], [place] [facility] 3 12:38:19 Obesity 184848581 Active 2022 QUINTEN ALEXANDER Attn: Accountvanessa g,[address] [facility], [place], [address], [place] [facility] 3 12:38:18 Diverticulitis of sigmoid colon 926655468 Active 2023 QUINTEN ALEXANDER Attn: Accountvanessa g,[address] [facility], [place], [address], [place] [facility] 4 17:13:57 Notes:Some problems listed i n Document: #[id number] could not be added to this patient's chart. Please review this document and add these problems to the patient's chart manually as needed. Problem Notes None recorded. Procedures Surgical History Date Name Laterality Status Provider Name and Address Organization Details Recorded Time 4 Skin Tag Removal completed QUINTEN ALEXANDER Attn: Accounting,[address] [facility], [place], [address], [place] [facility] 01/03/2024 17:06:14 7 endometrial ablation completed QUINTEN ALEXANDER Attn: Accounting,[address] [facility], [place], [address], [place] [facility] 03/12/2023 15:34:16 4 section completed QUINTEN ALEXANDER Attn: Accounting,[address] [facility], [place], [address], [place] [facility] 01/03/2024 16:49:30 4 ligation of fallopian tube completed QUINTEN ALEXANDER Attn: Accounting,[address] , [place], [address], [facility] 01/03/2024 16:49:55 9 Caesarean Section completed Ewa Esqueda MA [facility] 08/04/2014 10:50:39 0 Caesarean Section completed Ewa Esqueda MA [facility] 08/04/2014 10:50:39 Imaging Results None recorded. Procedure Notes None recorded. Medical Equipment None Reported. Allergies Allergen ID Allergen Name Allergen Category Reaction Reaction Severity Criticality Documentation Date Start Date Code Code System Note Provider Name and Address Organization Details Recorded Time [address]14 Lodine medicatio n other severe Not available 08/04/2014 8 RxNorm Ewa Esqueda MA null, [place] - [facility] 5 10:26:18 Medications Name Sig Start Date Stop Date Status Note LastModified by Organization Details LastModified Time naproxen tab 500mgnaprox en 06/17 completed Not Available Not Available Not Available cephalexin 500 mg caps 06/17 completed Not Available Not Available Not Available metronidazo l tab 500mgmetron idazole 06/17 completed [...] Updated DateTime 4 154.94 cm 37.5 kg/m2 59368.0 9 g 99 % 99 % 95 /min 16 /min 111 mm[Hg] 78 mm[Hg] Monserrat Mcmahon [place] [facility] 4 15:50:46 Social History Question Answer Notes LastModified by Organizat ion Details LastModified Time Tobacco Smoking Status Current Every Day Smoker Ewa Esqueda MA [facility], [place] - [facility] 08/04/2014 10:50:39 What Is Your Level Of Alcohol Consumption? Occasional [email or web address] Information not available 03/12/2023 What Is Your Level Of Caffeine Consumption? Occasional [email or web address] Information not available 08/04/2014 What Type Of Diet Are You Following? REGULAR [email or web address] Information not available 08/04/2014 Education 12 Information no t available 08/04/2014 What Was The Date Of Your Most Recent Tobacco Screening? 04/08/2024 Information not available 04/08/2024 Seat Belts Used Routinely Yes [email or web address] Information not available 08/04/2014 How Much Tobacco Do You Smoke? 0.5 PPD [email or web address] Information not available 08/04/2014 Has Tobacco Cessation Counseling Been Provided? Yes [email or web address] Information not available 03/12/2023 On What Date Was Tobacco Cessation Counseling Provided? 04/08/2024 Information not available 04/08/2024 How Many Years Have You Smoked Tobacco? 16 [email or web address] Information not available 08/04/2014 Sex: Unknown Functional Status None recorded. Mental Status None recorded. Family History Relationship Description Onset Age of this Age Resolved Age Notes LastModified by Organization Details LastModified Time Mother Hypertensive disorder Not available 2014 10:26:18 Mother Diabetes mellitus [email or web address] Not available 2014 10:26:18 Mother Kidney disease [email or web address] Not available 2014 10:26:18 Medical History Condition Response Heart Problems N Other N Breast Cancer N Kidney or Bladder Problems N Thyroid Problems N Depression N Lung Disease N GI Problems N Acne N Breast Problem N Eating [...] Diagnosis/Indication Diagnosis SNOMED-CT Code Diagnosis ICD10 Code [id number] QUINTEN ALEXANDER [facility] [address] [place] [address] 04/08/2024 15:41:41 04/08/2024 16:18:22 Depression screening 504848361 Z13.31 Smoker 04863515 F17.200 Spasm of back muscles 20 8461267 M62.830 Pain in right foot 22454 31656 12668 M79.671 Screening for malignant neoplasm of cervix 868928899 Z12.4 Screening for malignant neoplasm of breast 901975985 Z12.39 Health Concerns Section Related Observation LastModified by Organization Detai ls LastModified Time None Recorded Concern Status LastModified by Organization Details LastModified Time None Recorded Payers Encounter Date Sequence Insurance Name Policy Number Policy Karimi Covered Member ID Karimi Member ID Guarantor Name 04/08/2024 1 [facility] [id number] [facility] Ines [id number] Silke Jacek 04/08/2024 2 [place] [employer] [place] Silke Read [id number] Silke Read Notes Date Note Type Note Provider Name and Address Organization Details Recorded Time 04/08/2024 text/html Pt presents to discuss muscle spasms, quitting smoking, R foot pain, and PHILOSOPHY SPECIALIST referral.C/o muscle cramping to her back, legs, and feet for the past 3 moths. Calf and foot cramping is worse at night. She has been cutting back on her soda intake, drinking more water, and eating foods high in potassium. QUINTEN ALEXANDER Attn: Accounting,[address] [place], [address], [facility] 04/10/2024 09:36:25 OBGyn Episode No OBEpisode recorded.
--- OUTSIDE RECORDS SUMMARY | 2024-05-29 15:42 | XMS_ITS | Encounter Summary ---
Author Organization [facility] Address [address] [place] [address] Care Team Providers Care Sap Pi Developer Name Role Phone Unknown, Provider Primary Care Provider Unavaila ble Encounter Details Date Type Department Care Team (Late st Contact Info) Description 02/14/2009 Orders Only Maternal & Care at [facility] [address] , [address] [place] [address] with Other Poor Obstetric History [...] complication documented in this encounter Care Teams Sap Pi Developer Relationship Specialty Start Date End Date Unknown, Provider PCP - General 08/10/08 10/27/13 documented as of this encounter
--- OUTSIDE RECORDS SUMMARY | 2024-05-29 15:42 | XMS_ITS | Encounter Summary ---
Author Organization [facility] Address [address] [place] [address] Care Team Providers Care Heel Nailing Machine Operator Name Role Phone Unknown, Provider Primary Care Provider Unavaila ble Encounter Details Date Type Department Care Team (Late st Contact Info) Description 01/19/2009 Orders Only Maternal & Care at [facility] [address] [place] [address] with Other Poor Obstetric History [...] complication documented in this encounter Care Teams Heel Nailing Machine Operator Relationship Specialty Start Date End Date Unknown, Provider PCP - General 08/10/08 10/27/13 documented as of this encounter
--- OUTSIDE RECORDS SUMMARY | 2024-05-29 15:42 | XMS_ITS | Encounter Summary ---
Author Organization [facility] Address [address] [facility] [place] [address] Care Team Providers Care Agricultural Produce Packer Name Role Phone Unknown, Provider Primary Care Provider Unavaila ble Encounter Details Date Type Department Care Team (Latest Contact Info) Description 12/08/2008 12:01 AM CDT - 01/07/2009 11:59 PM CDT Hospital Encounter [facility] at [facility] [address] [facility] , [address] [place] [address] Default, Only Milton Bang MD [address] [place] [phone] Diagnostic Discharge Disposition: Home or Self Care [...] DIASTIX - POINT OF CARE (IP) Routine 01/05/2009 10:30 AM CDT with Other Poor Obstetric History (HCC) URINALYSIS - POINT OF CARE Routine 01/05/2009 10:30 AM CDT with Other Poor Obstetric History (HCC) documented in this encounter Results * URINALYSIS - POINT OF CARE (01/05/2009 10:30 AM CDT) Leukocyte UA Not Detected Not Detected /ul [facility] Protein UA Not Detected Not Detected mg/dl [facility] Glucose UA Not Detected Not Detected mg/dl [facility] Blood UA Not Detected Not Detected /ul [facility] Nitrite UA Not Detected Not Detected [facility] Comment Test performed by [facility] Women's Services Staff. [facility] URINE / Unknown 01/05/2009 1 0:30 AM CDT Only Default LAB - POINT OF CARE ORDERABLES Performing Organization Address City/[facility] Co de Phone Number [facility] [address] [place] [address] * KETO DIASTIX - POINT OF CARE (01/05/2009 10:30 AM CDT) Ketone UA Not Detected Not Detected mg/dl [facility] Glucose UA Not Detected Not Detected mg/dl [facility] Comment Glucose UA: This test was performed by Women's Services Staff [facility] URINE / Unknown 01/05/2009 1 0:30 AM CDT Only Default LAB - POINT OF CARE ORDERABLES Performing Organization Address [facility] de Phone Number [facility] [address] [place] [address] documented in this encounter Visit Diagnoses Diagnosis with other poor obstetric history(V23.49) ([facility]) with other poor obstetric history documented in this encounter Care Teams Agricultural Produce Packer Relationship Specialty Start Date End Date Unknown, Provider PCP - General 08/10/08 10/27/13 documented as of this encounter
--- OUTSIDE RECORDS SUMMARY | 2024-05-29 15:42 | XMS_ITS | Encounter Summary ---
Author Organization [facility] Address [facility] [facility] [place] [address] Care Team Providers Care Sole Polisher Name Role Phone Unavailable Primary Care Provider Unavailabl e Encounter Details Date Type Department Care Team (Latest Contact Info) Description 07/27/2008 11:36 AM DATA RECOVERY PLANNER - 07/27/2008 11:59 PM DATA RECOVERY PLANNER Hospital Encounter [facility] Default [address] [place] [address] Milton Bang MD [address] [place] [phone] Diagnostic Discharge Disposition: Home or Self Care [...]
--- OUTSIDE RECORDS SUMMARY | 2024-05-29 15:42 | XMS_ITS | Encounter Summary ---
Author Organization [facility] Address [facility] [facility] [place] [address] Care Team Providers Care Acid Washer Operator Name Role Phone Unknown, Provider Primary Care Provider Unavaila ble Encounter Details Date Type Department Care Team (Latest Contact Info) Description 08/10/2008 1:04 PM MEAT STOCK CLERK - 08/10/2008 11:59 PM MEAT STOCK CLERK Hospital Encounter [facility] Default [address] [place] [address] Milton Bang MD [address] [place] [phone] Diagnostic Discharge Disposition: Home or Self Care [...] DIASTIX - POINT OF CARE (IP) Routine 08/10/2008 1:15 PM MEAT STOCK CLERK with Other Poor Obstetric History (HCC) URINALYSIS - POINT OF CARE Routine 08/10/2008 1:15 PM MEAT STOCK CLERK with Other Poor Obstetric History (HCC) documented in this encounter Results * KETO DIASTIX - POINT OF CARE (08/10/2008 1:15 PM MEAT STOCK CLERK) Ketone UA Not Detected Not Detected mg/dl [facility] Glucose UA Not Detected Not Detected mg/dl [facility] Comment Glucose UA: This test was performed by Women's Services Staff [facility] URINE / Unknown 08/10/2008 1 :15 PM MEAT STOCK CLERK Milton Bang MD LAB - POINT OF CARE ORDERABLES [facility] * URINALYSIS - POINT OF CARE (08/10/2008 1:15 PM MEAT STOCK CLERK) Leukocyte UA Not Detected Not Detected /ul [facility] Protein UA Not Detected Not Detected mg/dl [facility] Glucose UA Not Detected Not Detected mg/dl [facility] Blood UA Not Detected Not Detected /ul [facility] Nitrite UA Not Detected Not Detected [facility] Comment Test performed by [facility] Women's Services Staff. [facility] URINE / Unknown 08/10/2008 1 :15 PM MEAT STOCK CLERK Milton Bang MD LAB - POINT OF CARE ORDERABLES [facility] documented in this encounter Visit Diagnoses Diagnosis with other poor obstetric history(V23.49) (HCC) with other poor obstetric history documented in this encounter Care Teams Acid Washer Operator Relationship Specialty Start Date End Date Unknown, Provider PCP - General 08/10/08 10/27/13 documented as of this encounter
--- OUTSIDE RECORDS SUMMARY | 2024-05-29 15:42 | XMS_ITS | Encounter Summary ---
Author Organization [facility] Address [address] [place] [address] Care Team Providers Care Tallow Pumper Name Role Phone Unknown, Provider Primary Care Provider Unavaila ble Encounter Details Date Type Department Care Team (Late st Contact Info) Description 01/26/2009 Orders Only [facility] [address] [facility] [address] [place] [address] Previous Delivery, Antepartum Condition or Complication (HCC); Obesity-Antepartum (HCC) Social History Tobacco Use Types Packs/Day [...] complication documented in this encounter Care Teams Tallow Pumper Relationship Specialty Start Date End Date Unknown, Provider PCP - General 08/10/08 10/27/13 documented as of this encounter
--- OUTSIDE RECORDS SUMMARY | 2024-05-29 15:42 | XMS_ITS | Clinical Summary ---
Author Organization [facility] [employer] Address [address] [address] Care Team Providers Care Filter Plant Supervisor Name Role Phone Unavailable Primary Care Provider Unavailabl e Source Comments [facility] [employer],non-owned Affiliates and Associated Physician Practices is amultiple site organization consisting of ambulatory clinics and hospital sitesin [place], [place], [place] and [place]. This disclosure is being madepursuant to the Care Everywhere program and may not contain all information available regarding this patient. Last updated 18.[facility] [employer] Allergies Active Allergy Reactions Criticality Noted Date [...] Previous delivery, antepartum condition or complication 01/18/2009 Family History Medical History Relation Name Comments Heart Failure Maternal Grandfather Diabetes Mother Hypertension Mother Thyroid Disease Mother Anesthesia Reaction Paternal Grandfather Relation Name Status Comments Brother Alive Father Unknown Maternal Grandfather Maternal Grandmother Mother Alive Paternal Grandfather Social History Tobacco Use Types Packs/Day Years [...] 01/12/2009 10:45 AM CDT Plan of Treatment Health Maintenance Due Date Last Done Comments LIPID TESTING 1980 MAMMOGRAM 1980 PAP SMEAR 1980 PNEUMOCOCCAL VACCINE (1 of 2 - PCV) 1986 HIV SCREENING 1995 HEPATITIS C SCREENING 04/15/1998 DTAP/TDAP/TD VACCINES (1 - Tdap) 1999 HEPATITIS B VACCINE (1 of 3 - 19+ 3-dose series) 1999 DEPRESSION SCREENING 06/10/2023 COVID-19 VACCINE ( - 2023-2 5 season) 2024 INFLUENZA VACCINE (#1) 2024 ZOSTER VACCINE (1 of 2) 2030 HIB VACCINE Aged Out No longer eligi ble based on patient's age to complete this topic HPV VACCINE Aged Out No longer eligi ble based on patient's age to complete this topic MENINGOCOCCAL VACCINE Aged Out No myriam irasema eligible based on patient's age to complete this topic
--- OUTSIDE RECORDS SUMMARY | 2024-05-29 15:42 | XMS_ITS | Encounter Summary ---
Author Organization [facility] Address [facility] [place] [address] Care Team Providers Care Galley Boy Name Role Phone Unknown, Provider Primary Care Provider Unavaila ble Encounter Details Date Type Department Care Team (Latest Contact Info) Description 12/02/2008 2:06 PM CDT - 12/02/2008 11:59 PM CDT Hospital Encounter [facility] Default [address] [place] [address] Milton Bang MD [address] [place] [id number] Diagnostic Discharge Disposition: Home or Self Care [...] on filedocumented in this encounter Care Teams Galley Boy Relationship Specialty Start Date End Date Unknown, Provider PCP - General 08/10/08 10/27/13 documented as of this encounter
--- OUTSIDE RECORDS SUMMARY | 2024-05-29 15:43 | XMS_ITS | Encounter Summary ---
Author Organization [facility] Address [address] [place] [address]. [place], [place] [address] [place] [address] Care Team Providers Care Marbleizer Name Role Phone Mimi Carrillo MD Primary Care Provider [phone] Encounter Details Date Type Department Care Team (Latest Contact Info) Description 07/24/2018 11:30 AM WATER VALVE REPAIRER - 07/24/2018 7:30 PM WATER VALVE REPAIRER Hospital Encounter [facility] Diagnostic Imaging [address] [place] [address] Mimi Carrillo MD [address] [place] [address] Discharge Disposition: Home or Self Care (Routine Discharge) Social History Tobacco Use Types Packs/Day Years Used Date Smoking Tobacco: Every Day Smokeless Tobacco: Never Alcohol Use Standard Drinks/Week Comments Yes 0 (1 standard drink = 0.6 oz pur e alcohol) OCC. Comments Unknown Sex and Gender Information Value Date Recorded Sex Assigned at Not on file Legal Sex Female 2:59 PM WATER VALVE REPAIRER Gender Identity Not on file Sexual Orientation Not on file documented as of this encounter Medications at Time of Discharge albuterol sulfate HFA (VENTOLIN HFA) 108 (90 Base) MCG/ACT inhaler 12/17/2016 ibuprofen 600 MG tablet TK 1 T PO Q 6 H PRF PAIN. TK WITH FOOD. 0 10/09/2017 09/17/2018 ranitidine 150 MG tablet TK 1 T PO BID 6 06/17/2018 10/17/2018 documented as of this encounter Plan of Treatment Not on file documented as of this encounter Procedures Procedure Name Priority Date/Time Associated Diagnosis Comments XR FOOT RT 3V Routine 07/24/2018 11:55 AM WATER VALVE REPAIRER Right foot pain documented in this encounter Results * XR FOOT RT 3V (07/24/2018 11:55 AM WATER VALVE REPAIRER) Anatomical Region Laterality Modality Foot Radiographic Zehra ging 07/24/2018 2:02 PM WATER VALVE REPAIRER Impressions 07/24/2018 2:24 PM WATER VALVE REPAIRER ===== IMPRESSION: ===== 1. ??Punctate foreign bodies underlying the tarsal metatarsal joints on lateral view only. Possibly in the soft tissues or on the patient's plantar surface skin. Narrative 07/24/2018 2:24 PM WATER VALVE REPAIRER Examination: Right foot 3 views Exam Date/Time: 07/24/2018 11:52 AM Reason For Exam: ??right, lateral foot pain concerned for foreign body ? Pain lateral aspect right foot. Symptoms for 2 months. No known injury. Comparison: None Technique: AP, oblique, and lateral views of the right foot were obtained. Findings: Punctate foreign bodies are seen underlying the metatarsal tarsal joints on lateral image only. These may be in the soft tissues or on the patient's skin. No lateral radiopaque foreign body identified. No fracture or bone destruction. No significant arthritis. Small calcaneal spurs. Procedure Note Yaya Rodrigez MD - 07/24/2018 Examination: Right foot 3 views Exam Date/Time: 07/24/2018 11:52 AM Reason For Exam: right, lateral foot pain concerned for foreign body Pain lateral aspect right foot. Symptoms for 2 months. No known injury. Comparison: None Technique: AP, oblique, and lateral views of the right foot wereobtained. Findings: Punctate foreign bodies are seen underlying the metatarsaltarsal joints on lateral image only. These may be in the soft tissues or on the patient's skin. No lateral radiopaque foreign body identified. Nofracture or bone destruction. No significant arthritis. Small calcaneal spurs. ===== IMPRESSION: ===== 1. Punctate foreign bodies underlying the tarsal metatarsal joints on lateral view only. Possibly in the soft tissues or on the patient'splantar surface skin. Mimi Carrillo MD GENERAL IMAGING Final Result documented in this encounter Visit Diagnoses Diagnosis Right foot pain Pain in limb documented in this encounter Care Teams Marbleizer Relationship Specialty Start Date End Date Mimi Carrillo MD [address] [place] [address] PCP - General FAMILY PRACTICE 07/24/18 documented as of this encounter
--- OUTSIDE RECORDS SUMMARY | 2024-05-29 15:43 | XMS_ITS | Encounter Summary ---
Author Organization [facility] Address [facility] [place], [place] [address] [place] [address] Care Team Providers Care Pewter Caster Name Role Phone Tony Lang MD Primary Care Provider [phone] Encounter Details Date Type Department Care Team (Late st Contact Info) Description 08/06/2016 Abstract [facility] [place] [address] Natalia Retana, DO Social History Tobacco Use Types Packs/Day Years Used Date Smoking Tobacco: Never Assessed Comments Unknown Sex and Gender Information Value Date Recorded Sex Assigned at Not on file Legal Sex Female 2:59 PM CHILD CARE TEAM LEAD Gender Identity Not on file Sexual Orientation Not on file documented as of this encounter Plan of Treatment Not on file documented as of this encounter Procedures Procedure Name Priority Date/Time Associated Diagnosis Comments TYPE & SCREEN STAT 08/06/2016 10:22 AM CHILD CARE TEAM LEAD TSH W/REFLEX Routine 08/06/2016 9:22 AM CHILD CARE TEAM LEAD documented in this encounter Results * TYPE & SCREEN (08/06/2016 10:22 AM CHILD CARE TEAM LEAD) ABO/RH O NEGATIVE 08/06/2016 1:15 PM CHILD CARE TEAM LEAD [facility] ANTIBODY SCREEN NEGATIVE 7 1:15 PM CHILD CARE TEAM LEAD [facility] SAMPLE EXPIRATION 08/09/2016 08/06/2016 1:15 PM CHILD CARE TEAM LEAD [facility] 08/06/2016 10:2 2 AM CHILD CARE TEAM LEAD 08/06/2016 11:23 AM CHILD CARE TEAM LEAD us Generic Conversion Md [facility] TEST ORDERAB LES Final Result Performing Organization Address [facility] Co de Phone Number [facility] [address] [place] [address], [place] [phone] * TSH W/REFLEX (SNS) (08/06/2016 9:22 AM CHILD CARE TEAM LEAD) TSH 0.71 0.27 - 4.20 mIU/mL 08/06/2016 11:01 AM CHILD CARE TEAM LEAD [facility] Comment:FREE T4 NOT INDICATE D SERUM OR PLASMA SPECIMEN / Unknown 08/06/2016 9:22 AM CHILD CARE TEAM LEAD 08/06/2016 10:23 AM CHILD CARE TEAM LEAD us Generic Conversion Md [facility] Final R esult Performing Organization Address City/[facility] Co de Phone Number [facility] [address] [place] [address], [place] [phone] documented in this encounter Visit Diagnoses Diagnosis Polyp of corpus uteri documented in this encounter Care Teams Pewter Caster Relationship Specialty Start Date End Date Tony [place] [address] PCP - General 08/06/16 07/23/18 documented as of this encounter
--- OUTSIDE RECORDS SUMMARY | 2024-05-29 15:43 | XMS_ITS | Encounter Summary ---
Author Organization [facility] Address [address] [place] [address]. [place] [address] [place] [address] Care Team Providers Care Foundation Stage Teacher Name Role Phone Tony Lang MD Primary Care Provider [phone] Tony Lang MD Primary Care Provider [phone] Tony Lang MD Primary Care Provider [phone] Encounter Details Date Type Department Care Team (Late st Contact Info) Description 07/05/[address] [facility] [address] [place] [address] Mimi Carrillo MD [address] [place] [id number] Social History Tobacco Use Types Packs/Day Years Used Date Smoking Tobacco: Never Assessed Comments Unknown Sex and Gender Information Value Date Recorded Sex Assigned at Not on file Legal Sex Female 2:59 PM DIRECTOR LEARNING Gender Identity Not on file Sexual Orientation Not on file documented as of this encounter Plan of Treatment Not on file documented as of this encounter Procedures Procedure Name Priority Date/Time Associated Diagnosis Comments ZINC PLASMA Routine 07/05/2016 4:22 PM DIRECTOR LEARNING VITAMIN A Routine 07/05/2016 4:22 PM DIRECTOR LEARNING documented in this encounter Results * ZINC PLASMA (07/05/2016 4:22 PM DIRECTOR LEARNING) ZINC S/P/B 74 60 - 130 mcg/dL 07/07/2016 5:05 PM DIRECTOR LEARNING [facility]EL NANO Comment: Test Performed by [email or web address], [address] [place], [place] Eric Piper M.D., Ph.D., Director of Laboratories , CLIA [id number] WHOLE BLOOD SPECIMEN / Unknown 07/05/2016 4:22 PM DIRECTOR LEARNING 07/05/2016 9:24 PM DIRECTOR LEARNING us Generic Conversion Md [facility] Final R esult Performing Organization Address City/[facility]/ZIP Co de Phone Number [facility] [address] [place], [place] , [place] [phone] * (ABNORMAL) VITAMIN A (07/05/2016 4:22 PM DIRECTOR LEARNING) VITAMIN A (RETINOL) S/P/B 32(L) 38 - 98 mcg/dL 07/10/2016 5:07 PM DIRECTOR LEARNING Osen CELSO NANO Comment: Vitamin supplementation within 24 hours prior to blood draw may affect the accuracy of the results. This test was developed and its analytical performance characteristics have been determined by [facility] [place], [place]. It has not been cleared or approved by the U.S. Food and Drug Administration. This assay has been validated pursuant to the CLIA regulations and is used for clinical purposes. Test Performed by [email or web address] [facility], [address] [place], [place] Eric Piper M.D., Ph.D., Director of Laboratories , CLIA [id number] SERUM SPECIMEN / Unknown 07/05/2016 4:22 PM DIRECTOR LEARNING 07/05/2016 9:24 PM DIRECTOR LEARNING us Generic Conversion Md [facility] Final R esult Performing Organization Address City/[facility]/ZIP Co de Phone Number [facility] [address] [place], [place] , [place] [phone] documented in this encounter Visit Diagnoses Diagnosis Nonscarring hair loss Other alopecia documented in this encounter Care Teams Foundation Stage Teacher Relationship Specialty Start Date End Date Tony Lang MD [address] [place] [address] PCP - General 08/06/16 07/23/18 [place] [address] PCP - General 07/30/16 08/05/16 Tony Lang MD [address] [place] [address] PCP - General 07/05/16 07/29/16 documented as of this encounter
--- OUTSIDE RECORDS SUMMARY | 2024-05-29 15:43 | XMS_ITS | Encounter Summary ---
Author Organization [facility] Address [address] [place] [address]. [place], [place] [address] [place] [address] Care Team Providers Care Radiologic Technology Teacher Name Role Phone Jack Carrillo MD Primary Care Provider [phone] Reason for Visit * Reason Comments Leg Pain L Encounter Details Date Type Department Care Team (Late st Contact Info) Description 10/17/2018 9:20 AM CDT Office Visit [facility] Family Medicine [address] [address] Jack Carrillo MD [address] [place] [address] Leg Pain (L) Social History Tobacco Use Types Packs/Day Years Used Date Smoking Tobacco: Every Day Smokeless Tobacco: Never Alcohol Use Standard Drinks/Week Comments Yes 0 (1 standard drink = 0.6 oz pur e alcohol) OCC. Comments No Sex and Gender Information Value Date Recorded Sex Assigned at Not on file Legal Sex Female 2:59 PM CREW TEAM MEMBER Gender Identity Not on file Sexual Orientation Not on file documented as of this encounter Last Filed Vital Signs Vital Sign Reading Time Taken Comments Blood Pressure 129/82 10/17/2018 9:31 AM CDT Pulse 88 10/17/2018 9:31 AM CDT Temperature - - Respiratory Rate 14 10/17/2018 9:31 AM CDT Oxygen Saturation 98% 10/17/2018 9:31 AM CDT Inhaled Oxygen Concentration - - Weight 91.6 kg (201 lb 14.4 oz) 10/17/2018 9:31 AM CDT Height - - Body Mass Index 38.15 09/25/2018 9:31 AM CDT documented in this encounter Progress Notes * Jack Carrillo MD - 10/17/2018 9:20 AM CDT Images from the original note were not included. MG LEONARDO SHEA [facility] - [place] [address] [place] [id number] OFFICE FOLLOW UP NOTE Encounter Date: 10/17/2018 Chief Complaint: Leg Pain (L) History of Present Illness: 38 yo F c/o chronic left knee pain. Pt ran into a wall 21 years ago and injured her knee. Pt reports having chronic pain since then, but over the last week the pain has progressively worsened. Pt's pain is sharp and radiates down towards her foot. ??Pt has trouble standing several hours at work 2/2pain. Pt reports that Tylenol, compression and applying heat to her knee are all somewhat helpful. Pain likely 2/2 OA. Vitamin D: Chronic condition. Pt took a supplement. Pt is in need of a repeat Vit D test. Review Of Systems: Pt denies any cp/sob/n/v/f/c/dewey Patient Active Problem List Diagnosis ??? Acute myofascial pain ??? Adnexal cyst ??? Allergic rhinitis ??? Breast pain ??? Carpal tunnel syndrome ??? Cough variant asthma ??? Cutaneous wart ??? Diarrhea ??? DUB (dysfunctional uterine bleeding) ??? Encounter for preventive health examination ??? IBS (irritable bowel syndrome) ??? Hypothyroidism ??? Hair loss ??? Flu vaccine need ??? Fibromyalgia ??? Seborrheic dermatitis ??? Restless legs syndrome ??? Piriformis syndrome ??? Neuropathy ??? Migraine headache ??? Knee pain, bilateral ??? Irregular menses ??? Sinusitis ??? Vitamin D deficiency ??? Obesity affecting , antepartum ??? Previous delivery, antepartum condition or complication History reviewed. No pertinent past medical history. History reviewed. No pertinent surgical history. Family History Family history unknown: Yes Social History Socioeconomic History ??? Marital status: Single Spouse name: Not on file ??? Number of children: Not on file ??? Years of education: Not on file ??? Highest education level: Not on file Occupational History ??? Not on file Social Needs ??? Financial resource strain: Not on file ??? Food insecurity: Worry: Not on file Inability: Not on file ??? Transportation needs: Medical: Not on file Non-medical: Not on file Tobacco Use ??? Smoking status: Current Every Day Smoker ??? Smokeless tobacco: Never Used Substance and Sexual Activity ??? Alcohol use: Yes Comment: OCC. ??? Drug use: No ??? Sexual activity: Not on file Lifestyle ??? Physical activity: Days per week: Not on file Minutes per session: Not on file ??? Stress: Not on file Relationships ??? Social connections: Talks on phone: Not on file Gets together: Not on file Attends presybeterian service: Not on file Active member of club or organization: Not on file Attends meetings of clubs or organizations: Not on file Relationship status: Not on file ??? Intimate partner violence: Fear of current or ex partner: Not on file Emotionally abused: Not on file Physically abused: Not on file Forced sexual activity: Not on file Other Topics Concern ??? Not on file Social History Narrative ??? Not on file Immunization History Administered Date(s) Administered ??? Influenza 03/12/2016, 02/27/2017 ??? Influenza Adult (Generic) 06/23/2013 ??? Tdap (Generic) 10/14/2013 Current Outpatient Medications Medication Sig Dispense Refill ??? albuterol sulfate HFA (VENTOLIN HFA) 108 (90 Base) MCG/ACT inhaler ??? cyclobenzaprine 10 MG tablet TK 1 T PO Q 8 HOURS PRN 0 ??? montelukast 10 MG tablet Take 1 tablet (10 mg total) by mouth nightly at bedtime. 30 tablet 1 ??? omeprazole 20 MG capsule Take 1 capsule (20 mg total) by mouth daily. 30 capsule 1 ??? vitamin D2, ergocalciferol, 84524 UNITS capsule Take 1 capsule (50,000 Units total) by mouth weekly. 8 capsule 0 No current facility-administered medications for this visit. Allergies Allergen Reactions ??? Etodolac Unknown Causes dehydration Objective: Vitals: 10/17/18 0931 BP: 129/82 Pulse: 88 Resp: 14 SpO2: 98% Physical Exam Constitutional: She is oriented to person, place, and time and well-developed, well-nourished, and in no distress. Moderately obese HENT: Head: Normocephalic and atraumatic. Right Ear: External ear normal. Left Ear: External ear normal. Mouth/Throat: Oropharynx is clear and moist. No oropharyngeal exudate. Eyes: Conjunctivae and EOM are normal. Pupils are equal, round, and reactive to light. Neck: Normal range of motion. Neck supple. No thyromegaly present. Cardiovascular: Normal rate and regular rhythm. No murmur heard. Pulmonary/Chest: Effort normal and breath sounds normal. No respiratory distress. She has no wheezes. Abdominal: Soft. Bowel sounds are normal. She exhibits no distension and no mass. There is no tenderness. Musculoskeletal: Normal range of motion. She exhibits tenderness. She exhibits no edema or deformity. full AROM with ttp at medial patella and lateral joint line of left knee Neurological: She is alert and oriented to person, place, and time. Gait normal. Skin: Skin is warm and dry. No rash noted. Psychiatric: Mood, affect and judgment normal. Nursing note and vitals reviewed. Labs: Results for orders placed or performed during the hospital encounter of 07/24/18 VITAMIN D, 25 OH Result Value Ref Range VITAMIN D, 25-HYDROXY: 19 (L) 30 - 100 NG/ML Counseling The patient and patient's family was counseled regarding instructions for management, patient and family education and importance of compliance with treatment. Assessment: 1. Chronic pain of left knee XR KNEE LT MIN 4V 2. Vitamin D deficiency VITAMIN D, 25 OH VENIPUNC ARM DRAW Plan: 1. Chronic pain of left knee 38 yo F c/o chronic left knee pain. Pt ran into a wall 21 years ago and injured her knee. Pt reports having chronic pain since then, but over the last week the pain has progressively worsened. Pt's pain is sharp and radiates down towards her foot. ??Pt has trouble standing several hours at work 2/2pain. Pt reports that Tylenol, compression and applying heat to her knee are all somewhatChronic condition. Pt took a supplement. Pt is in need of a repeat Vit D test. -Vit D lab ordered. Results pending helpful. Pain likely 2/2 OA. -full AROM with ttp at medial patella and lateral joint line of left knee -ordered a left knee xray to eval for bony abnormalities. Results pending -pt to go to PT or get a steroid injection pending xray results - XR KNEE LT MIN 4V; Future 2. Vitamin D deficiency - VITAMIN D, 25 OH; Future - VENIPUNC ARM DRAW Medications Discontinued During This Encounter Medication Reason ??? ranitidine 150 MG tablet ??? predniSONE 10 mg tablet Other- Please enter comment in Notes field ??? budesonide-formoterol 160-4.5 MCG/ACT inhaler Side effects JACK CARRILLO MD 10/26/2018 documented in this encounter Plan of Treatment Scheduled Orders Name Type Priority Associated Diagnoses Orde r Schedule VENIPUNC ARM DRAW Procedures Routine Vitamin D deficiency Ordered: 10/17/2018 documented as of this encounter Results * XR KNEE LT MIN 4V (10/17/2018 11:34 AM CDT) Anatomical Region Laterality Modality Knee Radiographic Zehra ging 10/17/2018 12:4 6 PM CDT Impressions 10/17/2018 12:47 PM CDT =====IMPRESSION:===== No osseous abnormality identified. Narrative 10/17/2018 12:47 PM CDT Examination: Left knee Exam date/time: 10/17/2018 11:21 AM Reason For Exam: ??chronic left knee pain ? Comparison: No comparison. Technique: AP, lateral, sunrise and AP axial views of the left knee were obtained. Findings: No acute fracture or dislocation. Joint spaces are normal. No destructive osseous lesion. No joint effusion. Procedure Note Bear Bunn MD - 10/17/2018 Examination: Left knee Exam date/time: 10/17/2018 11:21 AM Reason For Exam: chronic left knee pain Comparison: No comparison. Technique: AP, lateral, sunrise and AP axial views of the left knee were obtained. Findings: No acute fracture or dislocation. Joint spaces are normal. Nodestructive osseous lesion. No joint effusion. =====IMPRESSION:===== No osseous abnormality identified. Jack Carrillo MD GENERAL IMAGING Final Result * VITAMIN D, 25 OH (10/17/2018 10:23 AM CDT) VITAMIN D 25 HYDROXY S/P/B 41 30 - 100 NG/ML 10/17/2018 8:35 PM CDT [facility] Comment: ? INTERPRETATION ? DEFICIENT ??<20 ? INSUFFICIENT 20-29 ?SUFFICIENT 30-100 10/17/2018 10:2 3 AM CDT Jack Carrillo MD LABORATORY Final Result [facility] [address] [place] [address], documented in this encounter Visit Diagnoses Diagnosis Chronic pain of left knee- Primary Pain in joint, lower leg Vitamin D deficiency Unspecified vitamin D deficiency Chronic pain of left knee Pain in joint, lower leg documented in this encounter Care Teams Radiologic Technology Teacher Relationship Specialty Start Date End Date Jack Carrillo MD [facility] [place] [address] PCP - General FAMILY PRACTICE 07/24/18 documented as of this encounter
--- OUTSIDE RECORDS SUMMARY | 2024-05-29 15:43 | XMS_ITS | Encounter Summary ---
Author Organization [facility] Address [address] [place] [address]. [place], [place] [id number] [place] [address] Care Team Providers Care Junior Estimator Name Role Phone Tony Lang MD Primary Care Provider [phone] Encounter Details Date Type Department Care Team (Latest Contact Info) Description 08/17/2017 Abstract [facility] Social History Tobacco Use Types Packs/Day Years Used Date Smoking Tobacco: Never Assessed Comments Unknown Sex and Gender Information Value Date Recorded Sex Assigned at Not on file Legal Sex Female 2:59 PM REGULATORY ASSOCIATE Gender Identity Not on file Sexual Orientation Not on file documented as of this encounter Plan of Treatment Not on file documented as of this encounter Visit Diagnoses Not on filedocumented in this encounter Care Teams Junior Estimator Relationship Specialty Start Date End Date Tony Lang MD [address] [place] [address] [place] [address] PCP - General 08/06/16 07/23/18 documented as of this encounter
--- OUTSIDE RECORDS SUMMARY | 2024-05-29 15:43 | XMS_ITS | Encounter Summary ---
Author Organization [facility] Address [address] [place] [address]. [place], [place] [address] [place] [address] Care Team Providers Care Oyster Preparer Name Role Phone Mimi Carrillo MD Primary Care Provider [phone] Reason for Visit * Reason Onset Date Comments Lab Results 07/24/2018 Encounter Details Date Type Department Care Team (Late st Contact Info) Description 07/24/2018 Telephone [facility] Medical [facility] Family Medicine [facility] [address] [place] [phone] Mimi Carrillo MD [facility] [place] [address] Lab Results Social History Tobacco Use Types Packs/Day Years Used Date Smoking Tobacco: Every Day Smokeless Tobacco: Never Alcohol Use Standard Drinks/Week Comments Yes 0 (1 standard drink = 0.6 oz pur e alcohol) OCC. Comments Unknown Sex and Gender Information Value Date Recorded Sex Assigned at Not on file Legal Sex Female 2:59 PM SECURITY OPERATIONS ENGINEER Gender Identity Not on file Sexual Orientation Not on file documented as of this encounter Progress Notes * Willow Shipley RN - 07/24/2018 4:19 PM CST Called results to patient/mailed results RITY OPERATIONS ENGINEER documented in this encounter Plan of Treatment Not on file documented as of this encounter Visit Diagnoses Not on filedocumented in this encounter Care Teams Oyster Preparer Relationship Specialty Start Date End Date Mimi Carrillo MD [address] [place] [address] PCP - General FAMILY PRACTICE 07/24/18 documented as of this encounter
--- OUTSIDE RECORDS SUMMARY | 2024-05-29 15:43 | XMS_ITS | Encounter Summary ---
Author Organization [facility] Address [facility] 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 Gender Identity Not on file Sexual Orientation Not on file documented as of this encounter Last Filed Vital Signs Vital Sign Reading Time Taken Comments Blood Pressure 114/70 12/17/2016 8:09 AM CDT Pulse 79 12/17/2016 8:09 AM CDT Temperature - - Respiratory Rate - - Oxygen Saturation - - Inhaled Oxygen Concentration - - Weight 89.5 kg (197 lb 4 oz) 12/17/2016 8:09 AM CDT Height 154.9 cm (5' 1 ) 12/17/2016 8:09 AM CDT Body Mass Index 37.27 12/17/2016 8:09 AM CDT documented in this encounter Progress Notes * Dai Bianchi DO - 12/17/2016 8:00 AM CDT Reason For Visit Reason For Visit: Acute Visit Chief Complaint Pt c/o migraines and states that Imitrex was given to her by her PCP, it makes headaches worse and makes her sick. She's also c/o exercise induced asthma and warts on L hand History of Present Illness HPI Free Text: has migraines. generally takes APAP when they occur but when that was ineffective she was rx'd imitrex. took one imitrex and made worse. more head pounding and nausea. takes gabapentin for RLS. HAs have been off and on for 25 yrs. gets HAs weekly for past month, which is more freq than typical for her. unknown trigger this time. no change in current ISABEL from prior, ie no weakness, numbness, etc. just throbbing pain, nausea, and desire to be in dark, quiet room. also started new exercise program and finds her EIB has worsened. she has not needed an inhaler in a long time, but feels she needs one now. Review of Systems See HPI for pertinent positives. Active Problems 1. Acute myofascial pain (729.1,338.19) (M79.1,R52) 2. Adnexal cyst (625.8) (N94.9) 3. Allergic rhinitis (477.9) (J30.9) 4. Breast pain (611.71) (N64.4) 5. Carpal tunnel syndrome (354.0) (G56.00) 6. Cough variant asthma (493.82) (J45.991) 7. Cutaneous wart (078.10) (B07.9) 8. DUB (dysfunctional uterine bleeding) (626.8) (N93.8) 9. Fibromyalgia (729.1) (M79.7) 10. Flu vaccine need (V04.81) (Z23) 11. Hair loss (704.00) (L65.9) 12. Hypothyroidism (244.9) (E03.9) 13. IBS (irritable bowel syndrome) (564.1) (K58.9) 14. Irregular menses (626.4) (N92.6) 15. Knee pain, bilateral (719.46) (M25.561,M25.562) 16. Migraine headache (346.90) (G43.909) 17. Neuropathy (355.9) (G62.9) 18. Piriformis syndrome (355.0) (G57.00) 19. Restless legs syndrome (333.94) (G25.81) 20. Seborrheic dermatitis (690.10) (L21.9) 21. Vitamin a deficiency (264.9) (E50.9) 22. Vitamin d deficiency (268.9) (E55.9) Past Medical History 1. History of Back pain, thoracic (724.1) (M54.6) 2. History of Choking sensation (784.99) (R09.89) 3. Fibromyalgia (729.1) (M79.7) 4. History of HELLP syndrome (642.50) (O14.20) 5. History of earache (V12.49) (Z86.69) 6. History of fracture of finger (V15.51) (Z87.81) 7. History of irritable bowel syndrome (V12.79) (Z87.19) 8. History of right flank pain (V13.89) (Z87.898) Surgical History 1. History of Section 2. History of Tubal Ligation Family History Mother 1. Family history of diabetes mellitus (V18.0) (Z83.3) 2. Family history of hypertension (V17.49) (Z82.49) Father 3. Family history of diabetes mellitus (V18.0) (Z83.3) Grandparent 4. Family history of cerebrovascular accident (V17.1) (Z82.3) 5. Family history of diabetes mellitus (V18.0) (Z83.3) 6. Family history of first degree relative with congenital heart disease (V17.49) (Z82.79) 7. Family history of lung disease (V19.8) (Z83.6) Aunt 8. Family history of Alzheimer's dementia 9. Family history of Ovarian cancer Social History ?? Current every day smoker (305.1) (F17.200) ?? Food, clothing ?? Occasional alcohol use Immunizations Influenza --- Series1: 12Mar2016 Current Meds 1. Ferrous Sulfate 325 (65 Fe) MG Oral Tablet; TAKE 1 TABLET DAILY DIRECTED; Therapy: [id number] to (Evaluate:26Jun2016); Last Rx:[id number] Ordered Rx By: Tony Lang; Dispense: 90 Days ; #:90 Tablet; Refill: 1; For: Restless legs syndrome; EDWARD= N; Record 2. Gabapentin 300 MG Oral Capsule; TAKE 1 CAPSULE 3 TIMES DAILY; Therapy: 26Mar2016 to (Evaluate:72Hgx2315) Requested for: 26Mar2016; Last Rx:[id number] Ordered Rx By: Mimi Carrillo; Dispense: 30 Days ; #:90 Capsule; Refill: 3; For: Neuropathy; EDWARD = N; Verified Transmission to [employer]; Last Updated By: [employer]; 03/26/2016 9:12:13 AM 3. Gabapentin 300 MG Oral Capsule; take one tab po daily for 1-2 weeks and then may increase to 2 tabs at night; Therapy: [id number] to (Last Rx:[id number]) Requested for: [id number] Ordered Rx By: Tony Lang; Dispense: 0 Days ; #:90 Capsule; Refill: 2; For: Restless legs syndrome; EDWARD= N; Verified Transmission to [employer]; Last Updated By: [employer]; 12/29/2015 1:33:11 PM 4. Montelukast Sodium 10 MG Oral Tablet; TAKE 1 TABLET AT BEDTIME; Therapy: 21Sep2014 to (Last Rx:26Mar2016) Requested for: 26Mar2016 Ordered Rx By: Mimi Carrillo; Dispense: 0 Days ; #:30 Tablet; Refill: 3; For: Allergic rhinitis; EDWARD = N; Verified Transmission to [employer]; Last Updated By: [employer]; 03/26/20168:59:13 AM 5. Naproxen 500 MG Oral Tablet; TAKE 1 TABLET BY MOUTH TWICE DAILY; Therapy: 21Sep2014 to (Evaluate:[id number]) Requested for: [id number]; Last Rx:[id number] Ordered Rx By: Tony Lang; Dispense: 30 Days ; #:60 TAB; Refill: 0; For: PMH: Choking sensation, Seborrheic dermatitis; EDWARD = N; Verified Transmission to [employer]; Last Updated By: [employer]; 12/13/2014 9:22:02 AM 6. Vitamin A 37311 UNIT Oral Capsule; Take 4 capsules (100,000 units) PO QD x3days and then take 2 capsules (50,000 units) PO QD x 14 days for vitamin A deficiency; Therapy: 08Aug2016 to (Last Rx:08Aug2016) Requested for: 08Aug2016 Ordered Rx By: Mimi Carrillo; Dispense: 0 Days ; #:40 Capsule; Refill: 0; For: Vitamin a deficiency; EDWARD = N; Verified Transmission to [employer]; Last Updated By: [employer]; 08/08/2016 2:11:04 AM Allergies 1. Lodine Recorded By: Adilene Ortega; 02/18/2014 10:18:29 AM Vitals Recorded: [id number] 08:09AM Temperature 98.2 F, Oral Heart Rate 79 Systolic 114, Sitting Diastolic 70, Sitting O2 Saturation 98, RA Not able to obtain height Patient stated height Patient stated height Height 5 ft 1 in Weight 197 lb 4 oz BMI Calculated 37.27 BSA Calculated 1.88 Physical Exam Cortical functions: normal. Cranial nerves: II-XII normal bilaterally. fundo exam normal. Motor strength: +5 B upper and lower extremities. Sensory exam: normal. Cerebellar signs: negative. finger nose coordination non dysmetric. Gait: unremarkable. Assessment 1. Migraine headache (346.90) (G43.909) Plan Cough variant asthma 1. Ventolin HFA 108 (90 Base) MCG/ACT Inhalation Aerosol Solution; 1-2 puffs 30-60 min prior to exercise Rx By: Dai Bianchi; Dispense: 0 Days ; #:1 X 18 GM Inhaler; Refill: 0; For: Cough variant asthma; EDWARD = N; Verified Transmission to [employer] 669[address]; Last Updated By: [employer]; 12/17/2016 8:40:03 AM Cough variant asthma, Migraine headache 2. Yztcglzcwb-ZGEN-Sxthhfnm 50-325-40 MG Oral Capsule; TAKE 1 CAPSULE Every 6 hours PRN headache Rx By: Dai Bianchi; Dispense: 5 Days ; #:20 Capsule; Refill: 0; For: Cough variant asthma, Migraine headache; EDWARD = N; Print Rx Discussion/Summary will trial abortive therapy for migraine that is in different class than triptan. We discussed thatshe is at border of freq where prophylactic therapy would be rec, daren if there is increasing difficulty in controlling HAs when they arise. Rx'd inhaler for exercise. Signatures Electronically signed by : Dai Bianchi D.O.; Dec 17 2016 8:41AM NETWORK TECHNOLOGY INSTRUCTOR (Author) documented in this encounter Plan of Treatment Not on file documented as of this encounter Visit Diagnoses Not on filedocumented in this encounter Care Teams Scientologist Relationship Specialty Start Date End Date Tony Lang MD [address] [place] [address] PCP - General 08/06/16 07/23/18 documented as of this encounter
--- OUTSIDE RECORDS SUMMARY | 2024-05-29 15:43 | XMS_ITS | Encounter Summary ---
Author Organization [facility] Address [facility]6 [facility]. [place], [place] [address] [place] [address] Care Team Providers Care Print Graphic Designer Name Role Phone Mimi Carrillo MD Primary Care Provider [phone] Reason for Visit * Reason Comments URI/ENT Symptoms ear pain - right ear , productive cough, wakes up coughing, chest hurts from cough. no other symptoms. she has tried sudafed, robitusson, mucinex sinus max. symptoms x 1 week. Encounter Details Date Type Department Care Team (Late st Contact Info) Description 09/17/2018 10:20 AM CDT Office Visit [facility] Medical [facility] Family Medicine [facility] [address] [place] [address] Alessandra Zepeda, [facility] [address] [place] [address] URI/ENT Symptoms (ear pain - right ear, productive cough, wakes up coughing, chest hurts from cough. no other symptoms. she has tried sudafed, robitusson, mucinex sinus max. symptoms x 1 week. ) Social History Tobacco Use Types Packs/Day Years Used Date Smoking Tobacco: Every Day Smokeless Tobacco: Never Alcohol Use Standard Drinks/Week Comments Yes 0 (1 standard drink = 0.6 oz pur e alcohol) OCC. 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 Gender Identity Not on file Sexual Orientation Not on file documented as of this encounter Last Filed Vital Signs Vital Sign Reading Time Taken Comments Blood Pressure 140/80 09/17/2018 10:20 AM CDT Pulse 94 09/17/2018 10:20 AM CDT Temperature 36.8 ??C (98.3 ??F) 09/17/2018 10:20 AM C DT Respiratory Rate 14 09/17/2018 10:20 AM CDT Oxygen Saturation 97% 09/17/2018 10:20 AM CDT Inhaled Oxygen Concentration - - Weight 93 kg (205 lb) 09/17/2018 10:20 AM CDT Height 154.9 cm (5' 1 ) 09/17/2018 10:20 AM CDT Body Mass Index 38.73 09/17/2018 10:20 AM CDT documented in this encounter Patient Instructions * Patient Instructions* ETHEL Flores - 09/17/2018 10:20 AM CDT GERD- Avoid foods that are spicy, greasy. Do not lie down after eating. Avoid eating too fast, smoking, excess carbonated beverages and use of NSAIDS(ibuprofen, naproxen) If black or tarry stools or worsening symptoms then contact the office immediately; use omeprazole 20mg once daily on epty stomach Bronchitis- start doxy 1 twice daily for 10 days; use cough med at night to help quiet cough. Lots of Tylenol, water, cough drops, honey, hot tea for throat pain. Call if no improvemnet documented in this encounter Progress Notes * ETHEL Flores - 09/17/2018 10:20 AM CDT Images from the original note were not included. Office Visit Encounter Date: 09/17/2018 Chief Complaint: 38-year-old female presents for URI/ENT Symptoms (ear pain - right ear, productive cough, wakes up coughing, chest hurts from cough. no other symptoms. she has tried sudafed, robitusson, mucinex sinus max. symptoms x 1 week. ) . History of Present Illness: Pt c/o right ear pain and laryngitis, cough for the past week. Has been taking robitussin for cough. She was using sudafed, mucinex sinus max and no relief. Denies fever or chills. She has inhaler and uses 2-3 times/day; not helping coughing. Also c/o reflux type symptoms irritating throat. ROS: Review of Systems Constitutional: Positive for malaise/fatigue. Negative for chills and fever. HENT: Positive for ear pain and sore throat. Negative for ear discharge and sinus pain. Respiratory: Positive for cough, sputum production and wheezing. Negative for shortness of breath. Cardiovascular: Negative for chest pain. Gastrointestinal: Positive for heartburn. Negative for nausea and vomiting. Neurological: Negative for dizziness and headaches. Medications: Current Outpatient Medications: ??? albuterol sulfate HFA (VENTOLIN HFA) 108 (90 Base) MCG/ACT inhaler, , Disp: , Rfl: ??? doxycycline monohydrate 100 MG capsule, Take 1 capsule (100 mg total) by mouth 2 (two) times daily for 10 days., Disp: 20 capsule, Rfl: 0 ??? guaifenesin-codeine (CHERATUSSIN AC) 100-10 MG/5ML syrup, Take 5 mLs by mouth every 4 (four) hours as needed for Cough. At bedtime only, Disp: 180 mL, Rfl: 0 ??? omeprazole 20 MG capsule, Take 1 capsule (20 mg total) by mouth daily., Disp: 30 capsule, Rfl: 1 ??? ranitidine 150 MG tablet, TK 1 T PO BID, Disp: , Rfl: 6 ??? vitamin D2, ergocalciferol, 99402 UNITS capsule, Take 1 capsule (50,000 Units total) by mouth weekly., Disp: 8 capsule, Rfl: 0 Allergies: Allergies Allergen Reactions ??? Etodolac Unknown Causes dehydration Medical History: History reviewed. No pertinent past medical history. Surgical History: History reviewed. No pertinent surgical history. Social History: Social History Socioeconomic History ??? Marital status: [...] file Gets together: Not on file Attends uatsdin service: Not on file Active member of [...] Social History Narrative ??? Not on file Family History: Family History Family history unknown: Yes Objective: Filed Vitals: 09/17/18 1020 BP: 140/80 Pulse: 94 Resp: 14 Temp: 98.3 ??F (36.8 ??C) SpO2: 97% Weight: 93 kg (205 lb) Height: 5' 1 (1.549 m) Physical Exam Constitutional: She is oriented to person, place, and time and well-developed, well-nourished, and in no distress. She has a sickly appearance. HENT: Right Ear: Tympanic membrane is not injected, not perforated and not bulging. A middle ear effusionis present. Left Ear: Tympanic membrane is not injected, not perforated and not bulging. A middle ear effusion is present. Mouth/Throat: Oropharyngeal exudate and posterior oropharyngeal erythema present. No posterior oropharyngeal edema. Tonsillar swelling 2+ w post nasal drip. Neck: Normal range of motion. Cardiovascular: Normal rate and regular rhythm. Pulmonary/Chest: Effort normal and breath sounds normal. No respiratory distress. Abdominal: Soft. Bowel sounds are normal. She exhibits no distension. Lymphadenopathy: She has no cervical adenopathy. Neurological: She is alert and oriented to person, place, and time. Gait normal. GCS score is 15. Skin: Skin is warm and dry. Psychiatric: Affect and judgment normal. Labs: Procedure: Procedures Assessment: 1. Gastroesophageal reflux disease with esophagitis omeprazole 20 MG capsule 2. Bronchitis doxycycline monohydrate 100 MG capsule guaifenesin-codeine (CHERATUSSIN AC) 100-10 MG/5ML syrup Plan: Silke was seen today for uri/ent symptoms. Diagnoses and all orders for this visit: Gastroesophageal reflux disease with esophagitis - omeprazole 20 MG capsule; Take 1 capsule (20 mg total) by mouth daily. Bronchitis - doxycycline monohydrate 100 MG capsule; Take 1 capsule (100 mg total) by mouth 2 (two) times daily for 10 days. - guaifenesin-codeine (CHERATUSSIN AC) 100-10 MG/5ML syrup; Take 5 mLs by mouth every 4 (four) hours as needed for Cough. At bedtime only GERD- Avoid foods that are spicy, greasy. Do not lie down after eating. Avoid eating too fast, smoking, excess carbonated beverages and use of NSAIDS(ibuprofen, naproxen) If black or tarry stools or worsening symptoms then contact the office immediately; use omeprazole 20mg once daily on epty stomach Bronchitis- start doxy 1 twice daily for 10 days; use cough med at night to help quiet cough. Lots of Tylenol, water, cough drops, honey, hot tea for throat pain. Call if no improvemnet ETHEL Flores documented in this encounter Plan of Treatment Not on file documented as of this encounter Visit Diagnoses Diagnosis Gastroesophageal reflux disease with esophagitis- Primary Bronchitis Bronchitis, not specified as acute or chronic documented in this encounter Care Teams Print Graphic Designer Relationship Specialty Start Date End Date Mimi Carrillo MD [facility]6 [place] [address] PCP - General FAMILY PRACTICE 07/24/18 documented as of this encounter
--- OUTSIDE RECORDS SUMMARY | 2024-05-29 15:43 | XMS_ITS | Encounter Summary ---
Author Organization [facility] Address [address] [place] [address]. [place], [place] [address] [place] [address] Care Team Providers Care Traffic Operations Manager Name Role Phone Mimi Carrillo MD Primary Care Provider [phone] Encounter Details Date Type Department Care Team (Latest Contact Info) Description 10/17/2018 7:09 PM CDT - 10/17/2018 11:59 PM T Hospital Encounter [facility] [place] [address] Mimi Carrillo MD [address] [place] [phone] Discharge Disposition: Home or Self Care (Routine Discharge) Social History Tobacco Use Types Packs/Day Years Used Date Smoking Tobacco: Every Day Smokeless Tobacco: Never Alcohol Use Standard Drinks/Week Comments Yes 0 (1 standard drink = 0.6 oz pur e alcohol) OCC. 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 8 capsule 07/30/2018 montelukast 10 MG tabletIndications :Cough variant asthma (HHS/HCC) Take 1 tablet (10 mg total) by mouth nightly at bedtime. 30 tablet 1 09/25/2018 12/30/2018 omeprazole 20 MG capsuleIndication s:Gastroesophagea l reflux disease with esophagitis Take 1 capsule (20 mg total) by mouth daily. 30 capsule 1 09/17/2018 12/30/2018 documented as of this encounter Plan of Treatment Not on file documented as of this encounter Procedures Procedure Name Priority Date/Time Associated Diagnosis Comments VITAMIN D, 25 OH Routine 10/17/2018 10:2 3 AM CDT Vitamin D deficiency documented in this encounter Results * VITAMIN D, 25 OH (10/17/2018 10:23 AM CDT) VITAMIN D 25 HYDROXY S/P/B 41 30 - 100 NG/ML 10/17/2018 8:35 PM CDT [facility] Comment: ? INTERPRETATION ? DEFICIENT ??<20 ? INSUFFICIENT 20-29 ?SUFFICIENT 30-100 10/17/2018 10:2 3 AM CDT Mimi Carrillo MD LABORATORY Final Result [facility] [address] [place] [address], documented in this encounter Visit Diagnoses Diagnosis Vitamin D deficiency Unspecified vitamin D deficiency documented in this encounter Care Teams Traffic Operations Manager Relationship Specialty Start Date End Date Mimi Carrillo MD [address] [place] [address] PCP - General FAMILY PRACTICE 07/24/18 documented as of this encounter
--- OUTSIDE RECORDS SUMMARY | 2024-05-29 15:43 | XMS_ITS | Encounter Summary ---
Author Organization [facility] Address [facility]6 [facility]. [place], [place] [address] [place] [address] Care Team Providers Care Trailer Body Assembler Name Role Phone Mimi Carrillo MD Primary Care Provider [phone] Encounter Details Date Type Department Care Team (Late st Contact Info) Description 10/17/2018 Orders Only [facility] Medical [facility] Family Medicine [address] [address] Luz Maria Carrasco MA Social History Tobacco Use Types Packs/Day Years Used Date Smoking Tobacco: Every Day Smokeless Tobacco: Never Alcohol Use Standard Drinks/Week Comments Yes 0 (1 standard drink = 0.6 oz pur e alcohol) OCC. 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
--- OUTSIDE RECORDS SUMMARY | 2024-05-29 15:43 | XMS_ITS | Clinical Summary ---
Author Organization [facility] Address [facility]6 [facility]. [place], [place] [address] [place] [address] Care Team Providers Care House Director Name Role Phone Mimi Carrillo MD Primary Care Provider [phone] Allergies Active Allergy Reactions Criticality Noted Date Comments Etodolac Unknown High 01/12/2009 Causes dehydration Medications albuterol sulfate HFA (VENTOLIN HFA) 108 (90 Base) MCG/ACT inhaler 12/17/2016 Act lula vitamin D2, ergocalciferol, 23061 UNITS capsuleIndicatio ns:Low vitamin D level Take 1 capsule (50,000 Units total) by mouth weekly. 8 capsule 07/30/2018 Active cyclobenzaprine 10 MG tablet TK 1 T PO Q 8 HOURS PRN 0 10/02/2018 Active montelukast 10 MG tabletIndication s:Cough variant asthma (HHS/HCC) Take 1 tablet (10 mg total) by mouth nightly at bedtime. 30 tablet 2 12/30/2018 Active omeprazole 20 MG capsuleIndicatio ns:Gastroesophag eal reflux disease with esophagitis Take 1 capsule (20 mg total) by mouth daily. 30 capsule 2 12/30/2018 Active Active Problems Problem Noted Date Diagnosed Date Diarrhea 10/10/2017 Sinusitis 02/27/2017 Cutaneous wart 11/27/2016 Migraine headache 11/23/2016 Knee pain, bilateral 07/05/2016 Adnexal cyst 03/26/2016 Hypothyroidism 03/26/2016 Hair loss 03/26/2016 Neuropathy 03/26/2016 DUB (dysfunctional uterine bleeding) 03/12/2016 Acute myofascial pain 12/29/2015 Vitamin D deficiency 09/01/2015 Restless legs syndrome 08/29/2015 Irregular menses 08/29/2015 Breast pain 02/10/2015 Cough variant asthma ([facility]) 12/23/2014 Piriformis syndrome 12/23/2014 Allergic rhinitis 09/21/2014 Seborrheic dermatitis 09/21/2014 Carpal tunnel syndrome 04/09/2014 IBS (irritable bowel syndrome) 02/18/2014 Fibromyalgia 02/18/2014 Obesity affecting , antepartum ([facility] ) 01/18/2009 Overview (07/24/2018): Overview: Previous delivery, antepartum condition or complication ([facility]) 01/18/2009 Resolved Problems Problem Noted Date Diagnosed Date Resolved Date Nausea 10/10/2017 09/17/2018 Cough 02/27/2017 09/17/2018 Flu-like symptoms 02/27/2017 09/17/2018 Flu vaccine need 03/12/2016 02/19/2020 Encounter for preventive health examination 02/15/2014 02/19/2020 Normal ([facility]) 06/08/2013 0 09/17/2018 with poor obstetri c history ([facility]) 01/18/2009 09/17/2018 Overview (07/24/2018): Overview: IMO Update 12/08/2016 Immunizations Name Administration Dates Next Due Influenza (Generic) 02/27/2017,03/12/2016 Influenza Adult (Generic) 06/23/2013 Tdap (Generic) 10/14/2013 Social History Tobacco Use Types Packs/Day Years Used Date Smoking Tobacco: Every Day Smokeless Tobacco: Never Alcohol Use Standard Drinks/Week Comments Yes 0 (1 standard drink = 0.6 oz pur e alcohol) OCC. 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 Gender Identity Not on file Sexual Orientation Not on file Last Filed Vital Signs Vital Sign Reading Time Taken Comments Blood Pressure 129/82 10/17/2018 9:31 AM CDT Pulse 88 10/17/2018 9:31 AM CDT Temperature 36.7 ??C (98 ??F) 09/25/2018 9:31 AM CDT Respiratory Rate 14 10/17/2018 9:31 AM CDT Oxygen Saturation 98% 10/17/2018 9:31 AM CDT Inhaled Oxygen Concentration - - Weight 91.6 kg (201 lb 14.4 oz) 10/17/2018 9:31 AM CDT Height 154.9 cm (5' 1 ) 09/25/2018 9:31 AM CDT Body Mass Index 38.15 09/25/2018 9:31 AM CDT Plan of Treatment Health Maintenance Due Date Last Done Comments Cervical Cancer Screening Pa p Smear (Age 30 to 64) Every 3 Years 1980 Annual Physical 1983 Pneumococcal Vaccine: Pediatrics (0 to 5 Years) and At-Risk Patients (6 to 64 Years) (1 of 2 - PCV) 1986 Hepatitis C 1998 Hepatitis B Vaccines (1 of 3 - 19+ 3-dose series) 1999 Cervical Cancer Screening Pa p with HPV Testing (Age 30 to 64) Every 5 Years 2010 Cervical Cancer Screening wi th HPV 2010 Mammogram Screening 2020 DTaP, Tdap and Td Vaccines ( 2 - Td or Tdap) 10/15/2023 10/14/2013 COVID-19 Vaccine (2023-2 5 season) 2024 Influenza Adult (#1) 2024 02/27/2017, 03/12/2016, 06/23/2013 HPV Vaccines Aged Out No longer eligi ble based on patient's age to complete this topic Meningococcal Vaccine Aged Out No myriam irasema eligible based on patient's age to complete this topic RSV Immunizations Under 20 Months Aged Out No longer eligible b ased on patient's age to complete this topic Insurance [facility] Care Teams House Director Relationship Specialty Start Date End Date Mimi Carrillo MD [address] [place] [address] PCP - General FAMILY PRACTICE 07/24/18
--- OUTSIDE RECORDS SUMMARY | 2024-05-29 15:43 | XMS_ITS | Encounter Summary ---
Author Organization [facility] Address [facility]6 [facility] [place], [place] [address] [place] [address] Care Team Providers Care Fuselage Framer Name Role Phone Mimi Carrillo MD Primary Care Provider [phone] Encounter Details Date Type Department Care Team (Late st Contact Info) Description 07/29/2018 Orders Only [facility] Medical [facility] Family Medicine [facility] [address] [place] [address] [place] [address] [place] [address] Social History Tobacco Use Types Packs/Day Years Used Date Smoking Tobacco: Every Day Smokeless Tobacco: Never Alcohol Use Standard Drinks/Week Comments Yes 0 (1 standard drink = 0.6 oz pur e alcohol) OCC. Comments Unknown Sex and Gender Information Value Date Recorded Sex Assigned at Not on file Legal Sex Female 2:59 PM TITLE I ASSISTANT Gender Identity Not on file Sexual Orientation Not on file documented as of this encounter Progress Notes * Mimi Carrillo MD - 07/30/2018 12:06 PM CST rx sent to request pharmacy. Thanks! ~Dr Espinal E I ASSISTANT * Willow Shipley RN - 07/30/2018 8:55 AM CST Spoke to patient regarding lab results and she wants prescription send to [facility] [place]([facility]) E I ASSISTANT * Mimi Carrillo MD - 07/29/2018 7:46 PM CST Vitamin D supplement prescribed. Sent it to [facility] because pt did not have a pharmacy on file. Thanks! ~Dr Espinal E I ASSISTANT documented in this encounter Plan of Treatment Not on file documented as of this encounter Visit Diagnoses Diagnosis Low vitamin D level- Primary documented in this encounter Care Teams Fuselage Framer Relationship Specialty Start Date End Date Mimi Carrillo MD [address] [place] [address] PCP - General FAMILY PRACTICE 07/24/18 documented as of this encounter
--- OUTSIDE RECORDS SUMMARY | 2024-05-29 15:43 | XMS_ITS | Encounter Summary ---
Author Organization [facility] Address [facility] [place], [place] [address] [place] [address] Care Team Providers Care Coat Check Attendant Name Role Phone Mimi Carrillo MD Primary Care Provider [phone] Encounter Details Date Type Department Care Team (Late st Contact Info) Description 07/24/2018 Orders Only [facility] Medical [facility] Family Medicine [address] [address] Luz Maria Carrasco MA Social History Tobacco Use Types Packs/Day Years Used Date Smoking Tobacco: Every Day Smokeless Tobacco: Never Alcohol Use Standard Drinks/Week Comments Yes 0 (1 standard drink = 0.6 oz pur e alcohol) OCC. 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
--- OUTSIDE RECORDS SUMMARY | 2024-05-29 15:43 | XMS_ITS | Encounter Summary ---
Author Organization [facility] Address [address] [place] [address]. 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 This is good news! Any questions or concerns please feel free to call the office at [phone]. Have a blessed day, ~Dr Carrillo Verified Results LC-Fecal Fat, Qualitative [id number] 10Oct2017 10:58AM Mimi Carrillo Test Name Result Flag Reference Fats, Neutral Normal Normal (<60 Droplets/HPF) Fats, Total Normal Normal (<100 Droplets/HPF) LC-Giardia/Cryptosporidium EIA [id number] 10Oct2017 10:58AM Mimi Carrillo Test Name Result Flag Reference Giardia lamblia Ag, EIA Negative Negative Cryptosporidium EIA Negative Negative LC-Occult Blood, Fecal, [place] [id number] 10Oct2017 10:58AM Mimi Carrillo Test Name Result Flag Reference Occult Blood, [place]ecal, [place] TNP No Polymedco OC sampling bottle received. LC-Ova + Parasite Exam [id number] 10Oct2017 10:58AM Mimi Carrillo Test Name Result Flag Reference Ova + Parasite Exam Final report These results were obtained using wet preparation(s) and trichrome stained smear. This test does not include testing for Cryptosporidium parvum, Cyclospora, or Microsporidia. Result 1 No ova, cysts, or parasites seen. LC-Specimen Status Report 10Oct2017 10:58AM Mimi Carrillo Test Name Result Flag Reference Specimen Status Report TNP No Polymedco OC sampling bottle received. TEST: [id number] Occult Blood, [place], [place] documented in this encounter Plan of Treatment Not on file documented as of this encounter Visit Diagnoses Not on filedocumented in this encounter Care Teams Compounder Helper Relationship Specialty Start Date End Date Tony [place] [address] PCP - General 08/06/16 07/23/18 documented as of this encounter
--- OUTSIDE RECORDS SUMMARY | 2024-05-29 15:43 | XMS_ITS | Encounter Summary ---
Author Organization [facility] Address [address] [place] [address]. [place], [place] [address] [place] [address] Care Team Providers Care Corrugator Supervisor Name Role Phone Mimi Carrillo MD Primary Care Provider [phone] Encounter Details Date Type Department Care Team (Latest Contact Info) Description 07/19/2021 Scan HEALTH INFO [facility] Scanned, Documents Social History Tobacco Use Types Packs/Day Years Used Date Smoking Tobacco: Every Day Smokeless Tobacco: Never Alcohol Use Standard Drinks/Week Comments Yes 0 (1 standard drink = 0.6 oz pur e alcohol) OCC. 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
--- OUTSIDE RECORDS SUMMARY | 2024-05-29 15:43 | XMS_ITS | Encounter Summary ---
Author Organization [facility] Address [address] [place] [address]. 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
--- OUTSIDE RECORDS SUMMARY | 2024-05-29 15:43 | XMS_ITS | Encounter Summary ---
Author Organization [facility] Address [address] [place] [address]. [place], [place] [address] [place] [address] Care Team Providers Care Loom Changeover Operator Name Role Phone Tony Lang MD Primary Care Provider [phone] Tony Lang MD Primary Care Provider [phone] Encounter Details Date Type Department Care Team (Late st Contact Info) Description 07/30/2016 Abstract [facility] [place] [address] Natalia Retana, Social History Tobacco Use Types Packs/Day Years Used Date Smoking Tobacco: Never Assessed Comments Unknown Sex and Gender Information Value Date Recorded Sex Assigned at Not on file Legal Sex Female 2:59 PM 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
--- OUTSIDE RECORDS SUMMARY | 2024-05-29 15:43 | XMS_ITS | Encounter Summary ---
Author Organization [facility] Address [address] [place] [address]. [place], [place] [address] [place] [address] Care Team Providers Care Archaeologist Name Role Phone Jack Neely MD Primary Care Provider [phone] Reason for Referral * Consultation (Urgent) - Closed Specialty Diagnoses / Procedures Referred By Conner [email or web address] Referred To Contact PODIATRY Diagnoses Right foot pain Jack Neely MD [address] [place] [address] Phone: tel: fax: Referral ID Status Reason Start Date Expiration Date V isits Requested Visits Authorized [id number] Closed Specialty Services 07/24/2018 08/24/2019 1 1 ATION THERAPIST Reason for Visit * Reason Comments Foot Pain Right Encounter Details Date Type Department Care Team (Late st Contact Info) Description 07/24/2018 10:00 AM RADIATION THERAPIST Office Visit [facility] Family Medicine [address] [phone] Jack Neely MD [address] [place] [address] Foot Pain (Right) Social History Tobacco Use Types Packs/Day Years Used Date Smoking Tobacco: Every Day Smokeless Tobacco: Never Alcohol Use Standard Drinks/Week Comments Yes 0 (1 standard drink = 0.6 oz pur e alcohol) OCC. Comments Unknown Sex and Gender Information Value Date Recorded Sex Assigned at Not on file Legal Sex Female 2:59 PM RADIATION THERAPIST Gender Identity Not on file Sexual Orientation Not on file documented as of this encounter Last Filed Vital Signs Vital Sign Reading Time Taken Comments Blood Pressure 122/84 07/24/2018 10:16 AM RADIATION THERAPIST Pulse 78 07/24/2018 10:16 AM RADIATION THERAPIST Temperature 36.6 ??C (97.9 ??F) 07/24/2018 10:[address] Respiratory Rate 16 07/24/2018 10:16 AM RADIATION THERAPIST Oxygen Saturation 97% 07/24/2018 10:16 AM RADIATION THERAPIST Inhaled Oxygen Concentration - - Weight 92.4 kg (203 lb 9.6 oz) 07/24/2018 10:16 AM RADIATION THERAPIST Height 154.9 cm (5' 1 ) 07/24/2018 10:16 AM RADIATION THERAPIST Body Mass Index 38.47 07/24/2018 10:16 AM RADIATION THERAPIST documented in this encounter Progress Notes * Zee Richards MA - 07/24/2018 10:00 AM CSTAddended by: ZEE RICHARDS on: 07/24/2018 11:05 AM Modules accepted: Orders ATION THERAPIST * Jack Neely MD - 07/24/2018 10:00 AM CST Images from the original note were not included. MG LEONARDO SHEA [facility] FAMILY MEDICINE [address] [address] OFFICE FOLLOW UP NOTE Encounter Date: 07/24/2018 Chief Complaint: Foot Pain (Right) Low Vitamin D History of Present Illness: 38 yo F c/o right foot pain just below right 5th toe on the lateral aspect of pt's foot. Pt denies any inciting incident. She reports her foot just started hurting. Pt has a callous in the area wherethere is pain, but there is small, mobile, round mass palpable beneath the callous. Concerned for aforeign body. Pt reports that the pain makes it difficult for her to be on her feet at work and to do martial arts. Review Of Systems: Pt denies any cp/sob/n/v/f/c/dewey Patient Active Problem List Diagnosis ??? Acute myofascial pain ??? Adnexal cyst ??? Allergic rhinitis ??? Breast pain ??? Cough ??? Carpal tunnel syndrome ??? Cough variant asthma ??? Cutaneous wart ??? Diarrhea ??? DUB (dysfunctional uterine bleeding) ??? Encounter for preventive health examination ??? IBS (irritable bowel syndrome) ??? Hypothyroidism ??? Hair loss ??? Flu-like symptoms ??? Flu vaccine need ??? Fibromyalgia ??? Seborrheic dermatitis ??? Restless legs syndrome ??? Piriformis syndrome ??? Neuropathy ??? Nausea ??? Migraine headache ??? Knee pain, bilateral ??? Irregular menses ??? Sinusitis ??? Vitamin D deficiency ??? Normal ??? Obesity affecting , antepartum ??? with poor obstetric history ??? Previous delivery, antepartum condition or complication History reviewed. No pertinent past medical history. History reviewed. No pertinent surgical history. Family History Family history unknown: Yes Social History Socioeconomic History ??? Marital status: Single Spouse name: Not on file ??? Number of children: Not on file ??? Years of education: Not on file ??? Highest education level: Not on file Social Needs ??? Financial resource strain: Not on file ??? Food insecurity - worry: Not on file ??? Food insecurity - inability: Not on file ??? Transportation needs - medical: Not on file ??? Transportation needs - non-medical: Not on file Occupational History ??? Not on file Tobacco Use ??? Smoking status: Current Every Day Smoker ??? Smokeless tobacco: Never Used Substance and Sexual Activity ??? Alcohol use: Yes Comment: OCC. ??? Drug use: No ??? Sexual activity: Not on file Other Topics Concern ??? Not on file Social History Narrative ??? Not on file Immunization History Administered Date(s) Administered ??? Influenza 03/12/2016, 02/27/2017 ??? Influenza Adult (Generic) 06/23/2013 ??? Tdap (Generic) 10/14/2013 Current Outpatient Medications Medication Sig Dispense Refill ??? albuterol sulfate HFA (VENTOLIN HFA) 108 (90 Base) MCG/ACT inhaler ??? ibuprofen 600 MG tablet TK 1 T PO Q 6 H PRF PAIN. TK WITH FOOD. 0 ??? ranitidine 150 MG tablet TK 1 T PO BID 6 No current facility-administered medications for this visit. Allergies Allergen Reactions ??? Etodolac Unknown Causes dehydration Objective: Vitals: 07/24/18 1016 BP: 122/84 Pulse: 78 Resp: 16 Temp: 97.9 ??F (36.6 ??C) SpO2: 97% Physical Exam Constitutional: She is oriented to [...] Musculoskeletal: Normal range of motion. She exhibits no edema, tenderness or deformity. Neurological: She is alert and oriented to person, place, and time. Gait normal. Skin: Skin is warm and dry. No rash noted. Callus on lateral aspect of right foot just below 5th toe Small, mobile, round mass palpable under skin concerned for foreign body Psychiatric: Mood, affect and judgment normal. Nursing note and vitals reviewed. Labs: Results for orders placed or performed in visit on 07/04/16 CARDIOLOGY GENERIC Narrative [facility] Ordering MD: PITA FALCON MD Acct: [id number] Admit/Service Date: 07/04/16 Discharge Date: : 1980 Pt Type: REG CLI Sex: F Ord Site: [address] Test Date: 2016-07-04 Pat Name: [facility] Department: CARD 40 Room: [facility] Gender: Female Market Researcher: ROLAND : 1980 Requested By: PITA DOUGLASAMADOKaren FALCON Order Number: [id number] Reading MD: Cholo John Measurements Intervals [place] Rate: 59 P: 64 CA: 146 QRS: 67 QRSD: 81 T: 52 QT: 400 QTc: 399 Interpretive Statements SINUS RHYTHM WITH SINUS ARRHYTHMIA No previous ECG available for comparison ATION THERAPIST Counseling The patient and patient's family was counseled regarding instructions for management, patient and family education and importance of compliance with treatment. Assessment: 1. Right foot pain 2. Low vitamin D level VITAMIN D, 25 OH Plan: 1. Right foot pain 38 yo F c/o right foot pain just below right 5th toe on the lateral aspect of pt's foot. Pt denies any inciting incident. She reports her foot just started hurting. Pt has a callous in the area wherethere is pain, but there is small, mobile, round mass palpable beneath the callous. Concerned for aforeign body. Pt reports that the pain makes it difficult for her to be on her feet at work and to do martial arts. -xray of right foot ordered to r/o foreign body -Podiatry ref placed. Will appreciate Podiatry recs 2. Low vitamin D level Pt reports a hx of low vitamin D and she requests a repeat Vitamin D level today. -repeat Vitamin D level drawn today. Results pending - VITAMIN D, 25 OH; Future Medications Discontinued During This Encounter Medication Reason ??? acetaminophen-codeine 300-30 MG tablet ??? diazepam 2 MG tablet ??? gabapentin 300 MG capsule ??? hydrocodone-acetaminophen 5-325 MG tablet ??? ferrous sulfate, 65 mg elemental, 325 (65 FE) MG tablet ??? loperamide (IMODIUM A-D) 2 MG tablet ??? montelukast 10 MG tablet ??? ondansetron 4 MG disintegrating tablet ??? naproxen 500 MG tablet ??? Vitamin A 90881 units Cap JACK NEELY MD 07/24/2018 ATION THERAPIST documented in this encounter Plan of Treatment Scheduled Orders Name Type Priority Associated Diagnoses Orde r Schedule VENIPUNC ARM DRAW Procedures Routine Right foot pain Ordered: 07/24/2018 Scheduled Referrals Name Type Priority Associated Diagnoses Orde r Schedule Ambulatory referral to Podiatry Referral Routine Right foot pain Ordered: 07/24/2018 documented as of this encounter Results * XR FOOT RT 3V (07/24/2018 11:55 AM RADIATION THERAPIST) Anatomical Region Laterality Modality Foot Radiographic Zehra ging 07/24/2018 2:02 PM RADIATION THERAPIST Impressions 07/24/2018 2:24 PM RADIATION THERAPIST ===== IMPRESSION: ===== 1. ??Punctate foreign bodies underlying the tarsal metatarsal joints on lateral view only. Possibly in the soft tissues or on the patient's plantar surface skin. Narrative 07/24/2018 2:24 PM RADIATION THERAPIST Examination: Right foot 3 views Exam Date/Time: [...] tissues or on the patient'splantar surface skin. Jack Neely MD GENERAL IMAGING Final Result * (ABNORMAL) VITAMIN D, 25 OH (07/24/2018 11:04 AM RADIATION THERAPIST) Pathologist [facility] VITAMIN D 25 HYDROXY S/P/B 19(L) 30 - 100 NG/ML 07/24/2018 9:[address] [facility] Comment: ? INTERPRETATION ? DEFICIENT ??<20 ? INSUFFICIENT 20-29 ?SUFFICIENT 30-100 07/24/2018 11:0 4 AM RADIATION THERAPIST Jack Neely MD LABORATORY Final Result [facility] [address] [place] [address], documented in this encounter Visit Diagnoses Diagnosis Right foot pain- Primary Pain in limb Low vitamin D level Right foot pain Pain in limb documented in this encounter Care Teams Archaeologist Relationship Specialty Start Date End Date Jack Neely MD [address] [place] [address] PCP - General FAMILY PRACTICE 07/24/18 documented as of this encounter
--- OUTSIDE RECORDS SUMMARY | 2024-05-29 15:43 | XMS_ITS | Encounter Summary ---
Author Organization [facility] Address [address] [place] [address]. [place], [place] [address] [place] [address] Care Team Providers Care Ultrasound Manager Name Role Phone Tony Lang MD Primary Care Provider [phone] Encounter Details Date Type Department Care Team (Latest Contact Info) Description 09/25/[address] [facility] Social History Tobacco Use Types Packs/Day Years Used Date Smoking Tobacco: Never Assessed Comments Unknown Sex and Gender Information Value Date Recorded Sex Assigned at Not on file Legal Sex Female 2:59 PM CERTIFIED INCOME TAX PREPARER Gender Identity Not on file Sexual Orientation Not on file documented as of this encounter Plan of Treatment Not on file documented as of this encounter Visit Diagnoses Not on filedocumented in this encounter Care Teams Ultrasound Manager Relationship Specialty Start Date End Date Tony Lang MD [address] [place] [address] [place] [address] PCP - General 08/06/16 07/23/18 documented as of this encounter
--- OUTSIDE RECORDS SUMMARY | 2024-05-29 15:43 | XMS_ITS | Encounter Summary ---
Author Organization [facility] Address [address] [place] [address]. [place], [place] [address] [place] [address] Care Team Providers Care Vehicle Body Sander Name Role Phone Tony Lang MD Primary Care Provider [phone] Encounter Details Date Type Department Care Team (Latest Contact Info) Description 02/28/2017 Abstract [facility] Social History Tobacco Use Types Packs/Day Years Used Date Smoking Tobacco: Never Assessed Comments Unknown Sex and Gender Information Value Date Recorded Sex Assigned at Not on file Legal Sex Female 2:59 PM ART DEPARTMENT HEAD Gender Identity Not on file Sexual Orientation Not on file documented as of this encounter Plan of Treatment Not on file documented as of this encounter Visit Diagnoses Not on filedocumented in this encounter Care Teams Vehicle Body Sander Relationship Specialty Start Date End Date Tony Lang MD [address] [place] [address] [place] [address] PCP - General 08/06/16 07/23/18 documented as of this encounter
--- OUTSIDE RECORDS SUMMARY | 2024-05-29 15:43 | XMS_ITS | Encounter Summary ---
Author Organization [facility] Address formerly [facility]. [place], [place] [address] [place] [address] Care Team Providers Care Filter Washer Name Role Phone Mimi Carrillo MD Primary Care Provider Encounter Details Date Type Department Care Team (Late st Contact Info) Description 09/17/2018 Orders [facility] Family Medicine [address] [address] Deidra Guerrero MA Social History Tobacco Use Types Packs/Day Years Used Date Smoking Tobacco: Every Day Smokeless Tobacco: Never Alcohol Use Standard Drinks/Week Comments Yes 0 (1 standard drink = 0.6 oz pur e alcohol) OCC. 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
--- OUTSIDE RECORDS SUMMARY | 2024-05-29 15:43 | XMS_ITS | Encounter Summary ---
Author Organization [facility] Address [facility] [place] [address] [place] [address] Care Team Providers Care Knitting Machine Operator Automatic Name Role Phone Tony Lang MD Primary Care Provider [phone] Encounter Details Date Type Department Care Team (Late st Contact Info) Description 03/08/2017 Abstract [facility] Family Medicine [facility] [address] [place] [address] Mimi Carrillo MD [address] [place] [address] Social History Tobacco Use Types Packs/Day Years Used Date Smoking Tobacco: Never Assessed Comments Unknown Sex and Gender Information Value Date Recorded Sex Assigned at Not on file Legal Sex Female 2:59 PM CERAMIST Gender Identity Not on file Sexual Orientation Not on file documented as of this encounter Progress Notes * Generic Conversion MD Claribel - 03/08/2017 8:00 AM CDT Chief Complaint 36 year old female presents for stitch removal on right pinky finger. Five stitches removed total. Pt tolerated well. Slight redness and swelling. Doctor aware. No signs of infection were noted. Wound is healing well. Counseled pt to wrap the area when she does her martial arts practices. Pt conveyed understanding and was agreeable to this plan. Active Problems 1. Acute myofascial pain (729.1,338.19) (M79.1,R52) 2. Adnexal cyst (625.8) (N94.9) 3. Allergic rhinitis (477.9) (J30.9) 4. Breast pain (611.71) (N64.4) 5. Carpal tunnel syndrome (354.0) (G56.00) 6. Cough (786.2) (R05) 7. Cough variant asthma (493.82) (J45.991) 8. Cutaneous wart (078.10) (B07.9) 9. DUB (dysfunctional uterine bleeding) (626.8) (N93.8) 10. Fibromyalgia (729.1) (M79.7) 11. Flu vaccine need (V04.81) (Z23) 12. Flu-like symptoms (780.99) (R68.89) 13. Hair loss (704.00) (L65.9) 14. Hypothyroidism (244.9) (E03.9) 15. IBS (irritable bowel syndrome) (564.1) (K58.9) 16. Irregular menses (626.4) (N92.6) 17. Knee pain, bilateral (719.46) (M25.561,M25.562) 18. Migraine headache (346.90) (G43.909) 19. Neuropathy (355.9) (G62.9) 20. Piriformis syndrome (355.0) (G57.00) 21. Restless legs syndrome (333.94) (G25.81) 22. Seborrheic dermatitis (690.10) (L21.9) 23. Sinusitis (473.9) (J32.9) 24. Vitamin a deficiency (264.9) (E50.9) 25. Vitamin d deficiency (268.9) (E55.9) Immunizations Influenza --- Series1: 53Lqi1507; Series2: 91Rhn7221 Current Meds 1. Amoxicillin-Pot Clavulanate 875-125 MG Oral Tablet; Take 1 tab PO BID x7 days; Therapy: 29Cwh6737 to (Evaluate:91Cik7739) Requested for: 53Pig8708; Last Rx:49Yjg3731 Ordered 2. Benzonatate 100 MG Oral Capsule; TAKE 1 CAPSULE 3 TIMES DAILY NEEDED; Therapy: 96Ncx1085 to (Evaluate:54Pub5439) Requested for: 10Gzg1805; Last Rx:08Inp4233 Ordered 3. Ferrous Sulfate 325 (65 Fe) MG Oral Tablet; TAKE 1 TABLET DAILY DIRECTED; Therapy: 04Psj3569 to (Evaluate:26Jun2016); Last Rx:53Day8129 Ordered 4. Gabapentin 300 MG Oral Capsule; TAKE 1 CAPSULE 3 TIMES DAILY; Therapy: 26Mar2016 to (Evaluate:49Iuy4764) Requested for: 26Mar2016; Last Rx:00Gah8222 Ordered 5. Gabapentin 300 MG Oral Capsule; take one tab po daily for 1-2 weeks and then may increase to 2 tabs at night; Therapy: 04Ywt2116 to (Last Rx:89Cog4841) Requested for: 61Uri8871 Ordered 6. Montelukast Sodium 10 MG Oral Tablet; TAKE 1 TABLET AT BEDTIME; Therapy: 95Pxn6998 to (Last Rx:26Mar2016) Requested for: 85Gfz5158 Ordered 7. Naproxen 500 MG Oral Tablet; TAKE 1 TABLET BY MOUTH TWICE DAILY; Therapy: 50Zjg7329 to (Evaluate:03Vcx0055) Requested for: 34Wob9713; Last Rx:91Znj6774 Ordered 8. Ventolin HFA 108 (90 Base) MCG/ACT Inhalation Aerosol Solution; 1-2 puffs 30- 60 min prior to exercise; Therapy: 66Tve4547 to (Last Rx:30Cce0857) Requested for: 57Ary9894 Ordered 9. Vitamin A 21432 UNIT Oral Capsule; Take 4 capsules (100,000 units) PO QD x3days and then take 2 capsules (50,000 units) PO QD x 14 days for vitamin A deficiency; Therapy: 08Aug2016 to (Last Rx:08Aug2016) Requested for: 08Aug2016 Ordered Allergies 1. Lodine Signatures Electronically signed by : Rowena Philippe MA; Mar 08 2017 8:31AM CERAMIST (Author) Electronically signed by : Mimi Carrillo M.D.; Mar 08 2017 1:21PM CERAMIST (Author) documented in this encounter Plan of Treatment Not on file documented as of this encounter Visit Diagnoses Not on filedocumented in this encounter Care Teams Knitting Machine Operator Automatic Relationship Specialty Start Date End Date Tony Lang MD [address] [place] [address] PCP - General 08/06/16 07/23/18 documented as of this encounter
--- OUTSIDE RECORDS SUMMARY | 2024-05-29 15:43 | XMS_ITS | Encounter Summary ---
Author Organization [facility] Address [address] [place] [address]. [place], [place] [address] [place] [address] Care Team Providers Care Coal Hiker Name Role Phone Tony Lang MD Primary Care Provider [phone] Encounter Details Date Type Department Care Team (Late st Contact Info) Description 10/16/2017 Abstract [facility] Family Medicine [facility] [address] [place] [phone] Mimi Carrillo MD [address] [place] [phone] Social History Tobacco Use Types Packs/Day Years Used Date Smoking Tobacco: Never Assessed Comments Unknown Sex and Gender Information Value Date Recorded Sex Assigned at Not on file Legal Sex Female 2:59 PM CAMPER ASSEMBLER Gender Identity Not on file Sexual Orientation Not on file documented as of this encounter Last Filed Vital Signs Vital Sign Reading Time Taken Comments Blood Pressure 116/74 10/16/2017 8:30 AM CDT Pulse 82 10/16/2017 8:30 AM CDT Temperature - - Respiratory Rate - - Oxygen Saturation - - Inhaled Oxygen Concentration - - Weight 84.4 kg (186 lb) 10/16/2017 8:30 AM CDT Height 154.9 cm (5' 1 ) 10/16/2017 8:30 AM CDT Body Mass Index 35.14 10/16/2017 8:30 AM CDT documented in this encounter Progress Notes * Mimi Carrillo MD - 10/16/2017 8:00 AM CDT Chief Complaint Pt presents for ER follow up from [place] for back. History of Present Illness HPI Free Text: 37-year-old female presents for ER followup. Patient was seen at [facility], secondary to mid to low back pain. Patient reports that her muscles just seized up . Patient statesshe was given ibuprofen 800 mg p.o. q. day p.r.n. and diazepam 5-10 mg p.o. q. day p.r.n. . Patientreports that she has not used either of these in the last few days as her back started to feel much better. Patient states she also has a back massage scheduled for Saturday afternoon. Patient denies any chest pain, shortness of breath, nausea, vomiting, fevers, chills, HAs Review of Systems See HPI for pertinent positives. Active Problems 1. Acute myofascial pain (729.1,338.19) (M79.1,R52) 2. Adnexal cyst (625.8) (N94.9) 3. Allergic rhinitis (477.9) (J30.9) 4. Breast pain (611.71) (N64.4) 5. Carpal tunnel syndrome (354.0) (G56.00) 6. Cough (786.2) (R05) 7. Cough variant asthma (493.82) (J45.991) 8. Cutaneous wart (078.10) (B07.9) 9. Diarrhea (787.91) (R19.7) 10. DUB (dysfunctional uterine bleeding) (626.8) (N93.8) 11. Fibromyalgia (729.1) (M79.7) 12. Flu vaccine need (V04.81) (Z23) 13. Flu-like symptoms (780.99) (R68.89) 14. Hair loss (704.00) (L65.9) 15. Hypothyroidism (244.9) (E03.9) 16. IBS (irritable bowel syndrome) (564.1) (K58.9) 17. Irregular menses (626.4) (N92.6) 18. Knee pain, bilateral (719.46) (M25.561,M25.562) 19. Migraine headache (346.90) (G43.909) 20. Nausea (787.02) (R11.0) 21. Neuropathy (355.9) (G62.9) 22. Piriformis syndrome (355.0) (G57.00) 23. Restless legs syndrome (333.94) (G25.81) 24. Seborrheic dermatitis (690.10) (L21.9) 25. Sinusitis (473.9) (J32.9) 26. Vitamin A deficiency (264.9) (E50.9) 27. Vitamin D deficiency (268.9) (E55.9) Past Medical History 1. History of Back pain, thoracic (724.1) (M54.6) 2. History of Choking sensation (784.99) (R09.89) 3. Fibromyalgia (729.1) (M79.7) 4. History of HELLP syndrome (642.50) (O14.20) 5. History of earache (V12.49) (Z86.69) 6. History of fracture of finger (V15.51) (Z87.81) 7. History of irritable bowel syndrome (V12.79) (Z87.19) 8. History of low back pain (V13.59) (Z87.39) 9. History of right flank pain (V13.89) (Z87.898) [...] ?? Food, clothing ?? Occasional alcohol use Current Meds 1. Ferrous Sulfate 325 (65 Fe) MG Oral Tablet; TAKE 1 TABLET DAILY DIRECTED; Therapy: 96Bfe7127 to (Evaluate:26Jun2016); Last Rx:52Eve1776 Ordered 2. Gabapentin 300 MG Oral Capsule; TAKE 1 CAPSULE 3 TIMES DAILY; Therapy: 26Mar2016 to (Evaluate:09Dcv3260) Requested for: 26Mar2016; Last Rx:[id number] Ordered 3. Gabapentin 300 MG Oral Capsule; take one tab po daily for 1-2 weeks and then may increase to 2 tabs at night; Therapy: 52Dbc0093 to (Last Rx:23Lfm7810) Requested for: 65Bqa4525 Ordered 4. Imodium A-D 2 MG Oral Tablet; TAKE 2 TABLETS INITIALLY, FOLLOWED BY 1 TABLET AFTER EACH LOOSE BOWEL MOVEMENT NEEDED. MAX OF 4 TABS/DAY. DO NOT EXCEED 4 TABLETS/DAY; Therapy: 81Fpg6510 to (Last Rx:33Nlz6397) Requested for: 64Vln0398 Ordered 5. Montelukast Sodium 10 MG Oral Tablet; TAKE 1 TABLET AT BEDTIME; Therapy: 51Ztw2485 to (Last Rx:41Hfw5167) Requested for: 80Rza4350 Ordered 6. Naproxen 500 MG Oral Tablet; TAKE 1 TABLET BY MOUTH TWICE DAILY; Therapy: 06Yek6929 to (Evaluate:88Xes5690) Requested for: 65Sim4100; Last Rx:[id number] Ordered 7. Ondansetron 4 MG Oral Tablet Disintegrating; Take 1 tab PO TID PRN nausea; Therapy: 22Gre7223 to (Last Rx:25Dbh1063) Requested for: 35Gbw9295 Ordered 8. Ventolin HFA 108 (90 Base) MCG/ACT Inhalation Aerosol Solution; 1-2 puffs 30- 60 min prior to exercise; Therapy: 91Ggd9193 to (Last Rx:03Hxk3366) Requested for: 79Spu6512 Ordered 9. Vitamin A 14791 UNIT Oral Capsule; Take 4 capsules (100,000 units) PO QD x3days and then take 2 capsules (50,000 units) PO QD x 14 days for vitamin A deficiency; Therapy: 08Aug2016 to (Last Rx:08Aug2016) Requested for: 08Aug2016 Ordered Allergies 1. Lodine Immunizations Influenza --- Series1: 12-Mar-2016; Series2: 27-Feb-2017 Vitals Recorded: 00Iub9592 08:30AM Temperature 98.1 F Heart Rate 82 Respiration 15 Systolic 116 Diastolic 74 O2 Saturation 97 Height 5 ft 1 in Weight 186 lb BMI Calculated 35.14 BSA Calculated 1.83 Physical Exam Constitutional General appearance: Abnormal. patient was observed to be moderately obese, but well developed and well nourished. Eyes Conjunctiva and lids: No swelling, erythema or discharge. Ears, Nose, Mouth, and Throat External inspection of ears and nose: Normal. Pulmonary Respiratory effort: No increased work of breathing or signs of respiratory distress. Auscultation of lungs: Clear to auscultation. Cardiovascular Auscultation of heart: Normal rate and rhythm, normal S1 and S2, without murmurs. Examination of extremities for edema and/or varicosities: Normal. Abdomen Abdomen: Non-tender, no masses. Liver and spleen: No hepatomegaly or splenomegaly. Lymphatic Palpation of lymph nodes in neck: No lymphadenopathy. Musculoskeletal Gait and station: Normal. Skin Skin and subcutaneous tissue: Normal without rashes or lesions. Psychiatric Orientation to person, place, and time: Normal. Mood and affect: Normal. Counseling The patient was counseled regarding instructions for management, patient and family education and importance of compliance with treatment. Assessment 1. History of low back pain (V13.59) (Z87.39) Discussion/Summary 1) Hx of back pain 37-year-old female presents for ER followup. Patient was seen at [facility], secondary to mid to low back pain. Patient reports that her muscles just seized up . Patient states she was given ibuprofen 800 mg p.o. q. day p.r.n. and diazepam 5-10 mg p.o. q. day p.r.n. . Patient reports that she has not used either of these in the last few days as her back started to feel much better. Patient states she also has a back massage scheduled for Saturday afternoon. -Pt reports doing well today. she denies any back pain -Pt also reports her loose stool sxs from last week have also resolved -Relayed to pt that if she thinks she may need a muscle relaxer to call the office and request flexeril. Pt conveyed understanding and was agreeable to this plan. f/u PRN Signatures Electronically signed by : Mimi Carrillo M.D.; Oct 20 2017 7:10PM CAMPER ASSEMBLER (Author) documented in this encounter Plan of Treatment Not on file documented as of this encounter Visit Diagnoses Not on filedocumented in this encounter Care Teams Coal Hiker Relationship Specialty Start Date End Date Tony Lang MD [address] [place] [address] [place] [address] PCP - General 08/06/16 07/23/18 documented as of this encounter
--- OUTSIDE RECORDS SUMMARY | 2024-05-29 15:43 | XMS_ITS | Encounter Summary ---
Author Organization [facility] Address [address] [place] [address]. [place], [place] [address] [place] [address] Care Team Providers Care Measurement And Sensing Technician Name Role Phone Mimi Carrillo MD Primary Care Provider [phone] Reason for Visit * Reason Onset Date Comments Medication Information 07/30/2018 Encounter Details Date Type Department Care Team (Late st Contact Info) Description 07/30/2018 Telephone [facility] Medical [facility] Family Medicine [facility] [address] [place] [phone] Mimi Carrillo MD [address] [place] [address] Medication Information Social History Tobacco Use Types Packs/Day Years Used Date Smoking Tobacco: Every Day Smokeless Tobacco: Never Alcohol Use Standard Drinks/Week Comments Yes 0 (1 standard drink = 0.6 oz pur e alcohol) OCC. Comments Yes Sex and Gender Information Value Date Recorded Sex Assigned at Not on file Legal Sex Female 2:59 PM MAINTENANCE MANAGER Gender Identity Not on file Sexual Orientation Not on file documented as of this encounter Plan of Treatment Not on file documented as of this encounter Visit Diagnoses Not on filedocumented in this encounter Care Teams Measurement And Sensing Technician Relationship Specialty Start Date End Date Mimi Carrillo MD [address] [place] [address] PCP - General FAMILY PRACTICE 07/24/18 documented as of this encounter
--- OUTSIDE RECORDS SUMMARY | 2024-05-29 15:43 | XMS_ITS | Encounter Summary ---
Author Organization [facility] Address [facility]. [place], [place] [address] [place] [address] Care Team Providers Care Stave Planer Tender Name Role Phone Mimi Carrillo MD Primary Care Provider [phone] Encounter Details Date Type Department Care Team (Latest Contact Info) Description 10/17/2018 11:15 AM CDT - 10/17/2018 7:08 PM [facility] Hospital Encounter [facility] Diagnostic Imaging [address] [place] [address] Mimi Carrillo MD [address] [place] [phone] Discharge Disposition: Home or Self Care (Routine Discharge) Social History Tobacco Use Types Packs/Day Years Used Date Smoking Tobacco: Every Day Smokeless Tobacco: Never Alcohol Use Standard Drinks/Week Comments Yes 0 (1 standard drink = 0.6 oz pur e alcohol) OCC. Comments No Sex and Gender Information Value Date Recorded Sex Assigned at Not on file Legal Sex Female 2:59 PM FILLING WINDER Gender Identity Not on file Sexual Orientation Not on file documented as of this encounter Medications at Time of Discharge albuterol sulfate HFA (VENTOLIN HFA) 108 (90 Base) MCG/ACT inhaler 12/17/2016 cyclobenzaprine 10 MG tablet TK 1 T PO Q 8 HOURS PRN 0 10/02/2018 vitamin D2, ergocalciferol, 36188 UNITS capsuleIndication s:Low vitamin D level Take [...] Name Priority Date/Time Associated Diagnosis Comments XR KNEE LT MIN 4V Routine 10/17/2018 11: 34 AM CDT Chronic pain of left knee documented in this encounter Results * XR KNEE LT [...] joint effusion. =====IMPRESSION:===== No osseous abnormality identified. us Mimi Carrillo MD GENERAL IMAGING Final Result documented in this encounter Visit Diagnoses Diagnosis Chronic pain of left knee Pain in joint, lower leg documented in this encounter Care Teams Stave Planer Tender Relationship Specialty Start Date End Date Mimi Carrillo MD [address] [place] [address] PCP - General FAMILY PRACTICE 07/24/18 documented as of this encounter
--- OUTSIDE RECORDS SUMMARY | 2024-05-29 15:43 | XMS_ITS | Encounter Summary ---
Author Organization [facility] Address [facility]. [place], [place] [address] [place] [address] Care Team Providers Care Primary Clinician Name Role Phone Mimi Carrillo MD Primary Care Provider [phone] Reason for Visit * Reason Onset Date Comments Record Request 03/01/2022 Encounter Details Date Type Department Care Team (Late st Contact Info) Description 03/01/2022 Telephone [facility] Medical [facility] Family Medicine [facility] [address] [place] [address] Mimi Carrillo MD [address] [place] [address] Record Request Social History Tobacco Use Types Packs/Day Years Used Date Smoking Tobacco: Every Day Smokeless Tobacco: Never Alcohol Use Standard Drinks/Week Comments Yes 0 (1 standard drink = 0.6 oz pur e alcohol) OCC. Comments No Sex and Gender Information Value Date Recorded Sex Assigned at Not on file Legal Sex Female 2:59 PM INTAKE MAN Gender Identity Not on file Sexual Orientation Not on file documented as of this encounter Progress Notes * Carmenza Padilla MA - 03/21/2022 11:34 AM CDT No report found per the fax I received * Carmenza Padilla MA - 03/01/2022 8:54 AM CDT Requesting the pap smear report from [facility] documented in this encounter Plan of Treatment Not on file documented as of this encounter Visit Diagnoses Not on filedocumented in this encounter Care Teams Primary Clinician Relationship Specialty Start Date End Date Mimi Carrillo MD [address] [place] [address] PCP - General FAMILY PRACTICE 07/24/18 documented as of this encounter
--- OUTSIDE RECORDS SUMMARY | 2024-05-29 15:43 | XMS_ITS | Encounter Summary ---
Author Organization [facility] Address [address] [place] [address]. [place], [place] [address] [place] [address] Care Team Providers Care Cook Restaurant Name Role Phone Tony Lang MD Primary Care Provider [phone] Encounter Details Date Type Department Care Team (Latest Contact Info) Description 10/18/[address] [facility] Medical Group Social History Tobacco Use Types Packs/Day Years Used Date Smoking Tobacco: Never Assessed Comments Unknown Sex and Gender Information Value Date Recorded Sex Assigned at Not on file Legal Sex Female 2:59 PM HEAD WAITRESS Gender Identity Not on file Sexual Orientation Not on file documented as of this encounter Plan of Treatment Not on file documented as of this encounter Visit Diagnoses Not on filedocumented in this encounter Care Teams Cook Restaurant Relationship Specialty Start Date End Date Tony Lang MD [address] [place] [address] [place] [address] PCP - General 08/06/16 07/23/18 documented as of this encounter
--- OUTSIDE RECORDS SUMMARY | 2024-05-29 15:43 | XMS_ITS | Encounter Summary ---
Author Organization [facility] Address [address] [place] [address]. [place], [place] [address] [place] [address] Care Team Providers Care Online Content Editor Name Role Phone Tony Lang MD Primary Care Provider [phone] Encounter Details Date Type Department Care Team (Late st Contact Info) Description 10/10/2017 Abstract [facility] Family Medicine [facility] [address] [place] [phone] [place] [address] [place] [phone] Social History Tobacco Use Types Packs/Day Years Used Date Smoking Tobacco: Never Assessed Comments Unknown Sex and Gender Information Value Date Recorded Sex Assigned at Not on file Legal Sex Female 2:59 PM SEAM STAY STITCHER Gender Identity Not on file Sexual Orientation Not on file documented as of this encounter Last Filed Vital Signs Vital Sign Reading Time Taken Comments Blood Pressure 112/74 10/10/2017 10:33 AM CDT Pulse 71 10/10/2017 10:33 AM CDT Temperature - - Respiratory Rate - - Oxygen Saturation - - Inhaled Oxygen Concentration - - Weight 83.9 kg (185 lb) 10/10/2017 10:33 AM CDT Height 154.9 cm (5' 1 ) 10/10/2017 10:33 AM CDT Body Mass Index 34.96 10/10/2017 10:33 AM CDT documented in this encounter Progress Notes * Mimi Carrillo MD - 10/10/2017 10:00 AM CDT Chief Complaint Pt presents diarrhea and abdominal cramping x 3 days. History of Present Illness HPI Free Text: 37 yo F presents c/o nausea, loose stools and abdominal cramps x3 days. Pt denies any blood in her stools. Pt denies any new pets or recent travel. Pt states that she ate at [employer] on Saturday the next day her sxs started. Pt's also ate at [employer] and has similar sxs. pt denies any cp/sob/v/f/c/dewey Review of Systems See HPI for pertinent [...] (L21.9) 23. Sinusitis (473.9) (J32.9) 24. Vitamin A deficiency (264.9) (E50.9) 25. Vitamin D deficiency (268.9) (E55.9) Past Medical [...] Occasional alcohol use Immunizations Influenza --- Series1: 12-Mar-2016; Series2: 27-Feb-2017 Current Meds 1. Ferrous Sulfate 325 (65 Fe) MG Oral Tablet; TAKE 1 TABLET DAILY DIRECTED; Therapy: 49Ese9490 to (Evaluate:33Czq0705); Last Rx:[id number] Ordered Rx By: Tony Lang; Dispense: 90 Days ; #:90 Tablet; Refill: 1; For: Restless legs syndrome; EDWARD= N; Record 2. Gabapentin 300 MG Oral Capsule; TAKE 1 CAPSULE 3 TIMES DAILY; Therapy: 29Qns1205 to (Evaluate:70Thk9900) Requested for: 26Mar2016; Last Rx:[id number] Ordered Rx By: Mimi Carrillo; Dispense: 30 Days ; #:90 Capsule; Refill: 3; For: Neuropathy; EDWARD = N; Verified Transmission to [facility]; Last Updated By: Social Median; 03/26/2016 9:12:13 AM 3. Gabapentin 300 MG Oral Capsule; take one tab po daily for 1-2 weeks and then may increase to 2 tabs at night; Therapy: 14Lfp8885 to (Last Rx:[id number]) Requested for: 21Swr9189 Ordered Rx By: Tony Lang; Dispense: 0 Days ; #:90 Capsule; Refill: 2; For: Restless legs syndrome; EDWARD= N; Verified Transmission to [facility]; Last Updated By: Social Median; 12/29/2015 1:33:11 PM 4. Montelukast Sodium 10 MG Oral Tablet; TAKE 1 TABLET AT BEDTIME; Therapy: 21Sep2014 to (Last Rx:[id number]) Requested for: 26Mar2016 Ordered Rx By: Mimi Carrillo; Dispense: 0 Days ; #:30 Tablet; Refill: 3; For: Allergic rhinitis; EDWARD = N; Verified Transmission to [facility]; Last Updated By: Social Median; 03/26/20168:59:13 AM 5. Naproxen 500 MG Oral Tablet; TAKE 1 TABLET BY MOUTH TWICE DAILY; Therapy: 34Zjq0689 to (Evaluate:19Oes9492) Requested for: 05Jnn1297; Last Rx:[id number] Ordered Rx By: Tony Lang; Dispense: 30 Days ; #:60 TAB; Refill: 0; For: PMH: Choking sensation, Seborrheic dermatitis; EDWARD = N; Verified Transmission to [facility]; Last Updated By: Social Median; 12/13/2014 9:22:02 AM 6. Ventolin HFA 108 (90 Base) MCG/ACT Inhalation Aerosol Solution; 1-2 puffs 30- 60 min prior to exercise; Therapy: 64Nes5645 to (Last Rx:[id number]) Requested for: 01Xqm9775 Ordered Rx By: Dai Bianchi; Dispense: 0 Days ; #:1 X 18 GM Inhaler; Refill: 0; For: Cough variant asthma; EDWARD = N; Verified Transmission to [facility] 30803; Last Updated By: Social Median; 12/17/2016 8:40:03 AM 7. Vitamin A 49202 UNIT Oral Capsule; Take 4 capsules (100,000 units) PO QD x3days and then take 2 capsules (50,000 units) PO QD x 14 days for vitamin A deficiency; Therapy: 08Aug2016 to (Last Rx:08Aug2016) Requested for: 08Aug2016 Ordered Rx By: Mimi Carrillo; Dispense: 0 Days ; #:40 Capsule; Refill: 0; For: Vitamin A deficiency; EDWARD = N; Verified Transmission to [facility]; Last Updated By: Social Median; 08/08/2016 2:11:04 AM Allergies 1. Lodine Recorded By: Adilene Ortega; 02/18/2014 10:18:29 AM Vitals Recorded: 78Hob4625 10:33AM Temperature 97.1 F Heart Rate 71 Respiration 16 Systolic 112 Diastolic 74 O2 Saturation 96 Height 5 ft 1 in Weight 185 lb BMI Calculated 34.96 BSA Calculated 1.83 Physical Exam Constitutional General appearance: Abnormal. patient was observed to be moderately obese, but well developed and well nourished. Eyes Conjunctiva and lids: No swelling, erythema or discharge. Pupils and irises: Equal, round and reactive to light. Ears, Nose, Mouth, and Throat External inspection of ears and nose: Normal. Otoscopic examination: Tympanic membranes translucent with normal light reflex. Canals patent without erythema. Oropharynx: Normal with no erythema, edema, exudate or lesions. Pulmonary Respiratory effort: No increased work of breathing or signs of respiratory distress. Auscultation of lungs: Clear to auscultation. Cardiovascular Auscultation of heart: Normal rate and rhythm, normal S1 and S2, without murmurs. Examination of extremities for edema and/or varicosities: Normal. Abdomen Abdomen: Non-tender, no masses. Liver and spleen: No hepatomegaly or splenomegaly. +good bowel sounds and abdomen is soft, non-distended Lymphatic Palpation of lymph nodes in neck: No lymphadenopathy. Musculoskeletal Gait and station: Normal. Skin Skin and subcutaneous tissue: Normal without rashes or lesions. Psychiatric Orientation to person, place, and time: Normal. Mood and affect: Normal. Counseling The patient was counseled regarding instructions for management, patient and family education and importance of compliance with treatment. Assessment 1. Nausea (787.02) (R11.0) 2. Diarrhea (787.91) (R19.7) Plan Diarrhea 1. Imodium A-D 2 MG Oral Tablet; TAKE 2 TABLETS INITIALLY, FOLLOWED BY 1 TABLET AFTER EACH LOOSE BOWEL MOVEMENT NEEDED. MAX OF 4 TABS/DAY. DO NOT EXCEED 4 TABLETS/DAY Rx By: Mimi Carrillo; Dispense: 0 Days ; #:1 X 24 Tablet Box; Refill: 0; For: Diarrhea; EDWARD = N; Sent To: [facility] [address] 2. LC-Fecal Fat, Qualitative 715161; Status:Hold For - Manual Activation; Requested for:10Oct2017; Perform:[facility]; Due:09Nov2017;Ordered; For:Diarrhea; Ordered By:Mimi Carrillo; 3. LC-Giardia/Cryptosporidium EIA [id number]; Status:Hold For - Manual Activation; Requested for:10Oct2017; Perform:[facility]; Due:09Nov2017;Ordered; For:Diarrhea; Ordered By:Mimi Carrillo; 4. LC-Lactoferrin 037800; Status:Hold For - Manual Activation; Requested for:10Oct2017; Perform:[facility]; Due:09Nov2017;Ordered; For:Diarrhea; Ordered By:Mimi Carrillo; 5. LC-Occult Blood, Fecal, [place] 824925; Status:Hold For - Manual Activation; Requested for:10Oct2017; Perform:[facility]; Due:09Nov2017;Ordered; For:Diarrhea; Ordered By:Mimi Carrillo; 6. LC-Ova + Parasite Exam [id number]; Status:Hold For - Manual Activation; Requested for:10Oct2017; Perform:[facility]; Due:09Nov2017;Ordered; For:Diarrhea; Ordered By:Mimi Carrillo; 7. QU-CLOSTRIDIUM DIFFICILE TOXIN/GDH W/REFL TO PCR [id number]; Status:Hold For - Manual Activation; Requested for:10Oct2017; Perform:[facility]; Due:09Nov2017;Ordered; For:Diarrhea; Ordered By:Mimi Carrillo; : stool 8. Stool Culture; Status:Hold For - Manual Activation; Requested for:10Oct2017; [facility]; Due:09Nov2017;Ordered; For:Diarrhea; Ordered By:Mimi Carrillo; Source: : Stool Nausea 9. Ondansetron 4 MG Oral Tablet Disintegrating (Zofran ODT); Take 1 tab PO TID PRN nausea Rx By: Mimi Carrillo; Dispense: 0 Days ; #:9 Tablet; Refill: 2; For: Nausea; EDWARD = N; Verified Transmission to [facility]; Last Updated By: Zhao Brown; 10/10/2017 10:49:37 AM Discussion/Summary 1) Diarrhea/nausea 37 yo F presents c/o nausea, loose stools and abdominal cramps x3 days. Pt denies any blood in her stools. Pt denies any new pets or recent travel. Pt states that she ate at [employer] on Saturday the next day her sxs started. Pt's also ate at [employer] and has similar sxs. -discussed with pt that her sxs could be 2/2 viral illness vs food poisoning. -prescribed Zofran odt and Imodium to help quell sxs -encouraged pt to slowly advance her diet and to stay well-hydrated -Pt to start with BRAT diet today as she is able to keep fluids down. -if pt's sxs persist through the weekend, pt to do stool labs that have been ordered Signatures Electronically signed by : Mimi Carrillo M.D.; Oct 15 2017 5:50AM SEAM STAY STITCHER (Author) documented in this encounter Plan of Treatment Not on file documented as of this encounter Visit Diagnoses Not on filedocumented in this encounter Care Teams Online Content Editor Relationship Specialty Start Date End Date Tony Lang MD [address] [place] [address] PCP - General 08/06/16 07/23/18 documented as of this encounter
--- OUTSIDE RECORDS SUMMARY | 2024-05-29 15:43 | XMS_ITS | Encounter Summary ---
Author Organization [facility] Address [facility] [place] [address] [place] [address] Care Team Providers Care Bulldozer Engineer Name Role Phone Tony Lang MD Primary Care Provider [phone] Tony Lang MD Primary Care Provider [phone] Tony Lang MD Primary Care Provider [phone] Mimi Carrillo MD Primary Care Provider [phone] Encounter Details Date Type Department Care Team (Late st Contact Info) Description 07/04/2016 Abstract [facility] [place] [address] Natalia Retana, DO Social History Tobacco Use Types Packs/Day Years Used Date Smoking Tobacco: Never Assessed Comments Unknown Sex and Gender Information Value Date Recorded Sex Assigned at Not on file Legal Sex Female 2:59 PM CODING SPEC Gender Identity Not on file Sexual Orientation Not on file documented as of this encounter Plan of Treatment Not on file documented as of this encounter Procedures Procedure Name Priority Date/Time Associated Diagnosis Comments URINALYSIS WI REFLEX TO CULTURE Routine 07/04/2016 10:15 AM CODING SPEC TYPE & SCREEN Routine 07/04/2016 10:15 AM CODING SPEC COMPREHENSIVE METABOLIC PANEL Routine 07/04/2016 10:15 AM CODING SPEC CBC W/DIFF AUTOMATED Routine 07/04/2016 10:15 AM CODING SPEC documented in this encounter Results * TYPE & SCREEN (07/04/2016 10:15 AM CODING SPEC) ABO/RH O NEGATIVE 07/04/2016 3:07 PM [facility] ANTIBODY SCREEN NEGATIVE 7 3:07 PM [facility] SAMPLE EXPIRATION 07/07/2016 07/04/2016 3:07 PM [facility] 07/04/2016 10:1 5 AM CODING SPEC 07/04/2016 11:59 AM CODING SPEC us Generic Conversion Md [facility] TEST ORDERAB LES Final Result [facility] [address] [place] [id number], [place] [phone] * (ABNORMAL) URINALYSIS WI REFLEX TO CULTURE (07/04/2016 10:15 AM CODING SPEC) SOURCE (FLUID) URINE CLEAN CATCH 07/04/2016 11:16 AM [facility] COLOR (U) YELLOW 07/04/2016 12:14 PM [facility] TRANSPARENCY CLEAR 07/04/2016 12:14 PM [facility] SPECIFIC GRAVITY (U) 1.023 1.001 - 1.030 07/04/2016 12:14 PM [facility] U PH 6.0 5.0 - 9.0 07/04/2016 12:14 PM [facility] LEUKOCYTES (U) NEGATIVE NEGATIVE 07/04/2016 12:14 PM [facility] NITRITES NEGATIVE NEGATIVE 07/04/2016 12:14 PM [facility] PROTEIN (U) NEGATIVE <30 MG/DL 07/04/2016 12:14 PM [facility] URINE GLUCOSE NEGATIVE NEGATIVE MG/DL 07/04/2016 12:14 PM [facility] KETONES MG/DL (U) NEGATIVE NEGATIVE MG/DL 07/04/2016 12:14 PM [facility] UROBILINOGEN NEGATIVE NEGATIVE MG/DL 07/04/2016 12:14 PM [facility] BILIRUBIN (U) NEGATIVE NEGATIVE MG/DL 07/04/2016 12:14 PM [facility] BLOOD (U) SMALL(A) NEGATIVE 07/04/2016 12:14 PM [facility] CULTURE & SENSITIVITY INDICATED? CULTURE IS NOT INDICATED 07/04/2016 12:14 PM [facility] SQUAMOUS EPITHELIALS MODERATE /LPF 07/04/2016 12:14 PM [facility] MUCUS RARE /LPF 07/04/2016 12:14 PM [facility] WBC/HPF 1 <6 /HPF 07/04/2016 12:14 PM [facility] RBC/HPF 1 <6 /HPF 07/04/2016 12:14 PM [facility] 07/04/2016 10:1 5 AM CODING SPEC 07/04/2016 11:59 AM CODING SPEC us Generic Conversion Md [facility] URINE ORDERABLES Final Result [facility] [address] [place] [address], * (ABNORMAL) COMPREHENSIVE METABOLIC PANEL (07/04/2016 10:15 AM CODING SPEC) GLUCOSE 91 70 - 99 mg/dL 07/04/2016 2:29 PM [facility] BUN 11 8 - 23 mg/dL 07/04/2016 2:29 PM [facility] CREATININE S/P/B 0.76 0.60 - 1.10 mg/dL 07/04/2016 2:29 PM [facility] SODIUM S/P/B 140 136 - 145 mmol/L 07/04/2016 2:29 PM [facility] POTASSIUM S/P/B 4.3 3.5 - 5.1 mmol/L 07/04/2016 2:29 PM [facility] CHLORIDE S/P/B 105 98 - 107 mmol/L 07/04/2016 2:29 PM [facility] CO2 24 22 - 29 mmol/L 07/04/2016 2:29 PM [facility] BILIRUBIN TOTAL S/P/B 0.2 0.2 - 1.2 mg/dL 07/04/2016 2:29 PM [facility] CALCIUM S/P/B 8.4(L) 8.6 - 10.2 mg/dL 07/04/2016 2:29 PM [facility] ALKALINE PHOSPHATASE S/P/B 68 35 - 104 U/L 07/04/2016 2:29 PM [facility] AST 11 0 - 32 U/L 07/04/2016 2:29 PM [facility] TOTAL PROTEIN S/P/B 6.6 6.4 - 8.3 g/dL 07/04/2016 2:29 PM [facility] ALBUMIN S/P/B 3.7 3.5 - 5.2 g/dL 07/04/2016 2:29 PM [facility] ALT 10 0 - 33 U/L 07/04/2016 2:29 PM [facility] GLOBULIN 2.9 2.3 - 3.6 g/dL 07/04/2016 2:29 PM [facility] A/G RATIO 1.3 1.0 - 2.0 07/04/2016 2:29 PM [facility] ANION GAP 15 8 - 20 07/04/2016 2:29 PM [facility] EGFR NON-AFR. AMER. >60 >60 mL/min/1.7 3m'2 07/04/2016 2:29 PM [facility] EGFR AFR. AMER. >60 >60 mL/min/1.7 3m'2 07/04/2016 2:29 PM [facility] Comment: NOTE: eGFR is not calculated for patients <18 years of age. This is an estimated GFR (CKD EPI) and should not be used for calculating drug doses. 07/04/2016 10:1 5 AM CODING SPEC 07/04/2016 12:01 PM CODING SPEC us Generic Conversion Md [facility] Final R esult [facility] [address] [place] [address], * (ABNORMAL) CBC W/DIFF AUTOMATED (07/04/2016 10:15 AM CODING SPEC) WBC 9.1 4.8 - 10.8 x10'3/uL 07/04/2016 12:16 PM [facility] RBC 4.43 4.20 - 5.40 x10'6/uL 07/04/2016 12:16 PM [facility] HGB 13.7 12.0 - 16.0 G/DL 07/04/2016 12:16 PM [facility] HCT 38.9 38.0 - 48.0 % 07/04/2016 12:16 PM [facility] MCV 87.8 81.0 - 99.0 FL 07/04/2016 12:16 PM [facility] MCH 30.9 27.0 - 31.0 PG 07/04/2016 12:16 PM [facility] MCHC 35.2 32.0 - 36.0 G/DL 07/04/2016 12:16 PM CODING SPEC [facility] RDW 12.6 11.5 - 14.5 % 07/04/2016 12:16 PM [facility] PLT 219 130 - 400 x10'3/uL 07/04/2016 12:16 PM CODING SPEC [facility] MPV 11.3 9.3 - 12.2 FL 07/04/2016 12:16 PM [facility] IMMATURE GRANS % 0.2 0.0 - 1.0 % 07/04/2016 12:16 PM [facility] NEUTROPHILS % 60.1 43.0 - 65.0 % 07/04/2016 12:16 PM [facility] LYMPHOCYTES % 30.1 20.0 - 46.0 % 07/04/2016 12:16 PM [facility] MONOCYTES % 4.6(L) 5.0 - 12.0 % 07/04/2016 12:16 PM [facility] EOSINOPHILS 4.6(H) 1.0 - 3.0 % 07/04/2016 12:16 PM [facility] BASOPHILS 0.4 0.0 - 1.0 % 07/04/2016 12:16 PM [facility] WHOLE BLOOD SPECIMEN / Unknown 07/04/2016 10:15 AM CODING SPEC 07/04/2016 12:01 PM CODING SPEC us Generic Conversion Md [facility] Final R esult [facility] [address] [place] [address], documented in this encounter Visit Diagnoses Diagnosis Encounter for other preprocedural examination documented in this encounter Care Teams Bulldozer Engineer Relationship Specialty Start Date End Date Tony Lang MD [address] [place] [address] PCP - General 08/06/16 07/23/18 [place] [address] PCP - General 07/30/16 08/05/16 [place] [address] PCP - General 07/05/16 07/29/16 Mimi Carrillo MD [address] [place] [address] PCP - General 07/04/16 07/04/16 documented as of this encounter
--- OUTSIDE RECORDS SUMMARY | 2024-05-29 15:43 | XMS_ITS | Encounter Summary ---
Author Organization [facility] Address [address] [place] [address]. [place], [place] [address] [place] [address] Care Team Providers Care Security Director Name Role Phone Tony Lang MD Primary Care Provider [phone] Mimi Carrillo MD Primary Care Provider [phone] Encounter Details Date Type Department Care Team (Late st Contact Info) Description 07/04/2016 Orders Only [facility] [address] [place] [address] Jeff Hester MD Social History Tobacco Use Types Packs/Day Years Used Date Smoking Tobacco: Never Assessed Comments Unknown Sex and Gender Information Value Date Recorded Sex Assigned at Not on file Legal Sex Female 2:59 PM RIM TURNING FINISHER Gender Identity Not on file Sexual Orientation Not on file documented as of this encounter Plan of Treatment Not on file documented as of this encounter Procedures Procedure Name Priority Date/Time Associated Diagnosis Comments CARDIOLOGY GENERIC 07/04/2016 10 :31 AM RIM TURNING FINISHER documented in this encounter Results * CARDIOLOGY GENERIC (07/04/2016 10:31 AM RIM TURNING FINISHER) 07/04/2016 10:3 1 AM RIM TURNING FINISHER Narrative [facility] - 07/04/2016 12:00 AM RIM TURNING FINISHER ? FRANCISCO YAP Ordering MD: PITA FALCON MD ?? Acct: [id number] ?? Admit/Service Date: 07/04/16 Discharge Date: ?? : 1980 Pt Type: REG CLI ?? Sex: F Ord Site: [facility] [place] ?[address], [place], [place] ?Test Date: ?2016-07-04 ?? Pat Name: ? FRANCISCO BUSSA ?Department: CARD ?? 40 ? Room: ? DPST ?? Gender: ? Female ? Professor Sculpture: ?? RRS ?? : ?1980 ? Requested By: PITA FALCON ?? Order Number: [id number] ?Reading MD: ?? Cholo Dora ?Measurements ?? Intervals ?[place] ? Rate: ? 59 ? P: ?64 ?? SC: ? 146 ?QRS: ?67 ?? QRSD: ? 81 ? T: ?52 ?? QT: ? 400 ? QTc: ?399 ?Interpretive Statements ?? SINUS RHYTHM WITH SINUS ARRHYTHMIA ?? No previous ECG available for comparison ?? TURNING FINISHER ? Procedure Note Cholo John MD - 07/04/2016 FRANCISCO YAP Ordering MD: PITA FALCON MD Acct: [id number] Admit/Service Date: 07/04/16 Discharge Date: : 1980 Pt Type: REG CLI Sex: F Ord Site: [address] Test Date: 2016-07-04 Pat Name: FRANCISCO YAP Department: CARD 40 Room: [facility] Gender: Female Professor Sculpture: RRS : 1980 Requested By: PITA MCCORMICK Order Number: [id number] Reading MD: Cholo John Measurements Intervals [place] Rate: 59 P: 64 SC: 146 QRS: 67 QRSD: 81 T: 52 QT: 400 QTc: 399 Interpretive Statements SINUS RHYTHM WITH SINUS ARRHYTHMIA No previous ECG available for comparison TURNING FINISHER us Generic Conversion Md [facility] Final Result [facility] documented in this encounter Visit Diagnoses Not on filedocumented in this encounter Care Teams Security Director Relationship Specialty Start Date End Date Tony Lang MD [address] [place] [address] PCP - General 07/05/16 07/29/16 Mimi Carrillo MD [address] [place] [address] PCP - General 07/04/16 07/04/16 documented as of this encounter
--- OUTSIDE RECORDS SUMMARY | 2024-05-29 15:43 | XMS_ITS | Encounter Summary ---
Author Organization [facility] Address [address] [place] [address]. [place], [place] [address] [place] [address] Care Team Providers Care Lapidary Apprentice Name Role Phone Tony Lang MD Primary Care Provider Encounter Details Date Type Department Care Team (Latest Contact Info) Description 03/12/2017 Abstract [facility] Social History Tobacco Use Types Packs/Day Years Used Date Smoking Tobacco: Never Assessed Comments Unknown Sex and Gender Information Value Date Recorded Sex Assigned at Not on file Legal Sex Female 2:59 PM RESIDENTIAL CARPET INSTALLER Gender Identity Not on file Sexual Orientation Not on file documented as of this encounter Plan of Treatment Not on file documented as of this encounter Visit Diagnoses Not on filedocumented in this encounter Care Teams Lapidary Apprentice Relationship Specialty Start Date End Date Tony Lang MD [address] [place] [address] [place] [address] PCP - General 08/06/16 07/23/18 documented as of this encounter
--- OUTSIDE RECORDS SUMMARY | 2024-05-29 15:43 | XMS_ITS | Encounter Summary ---
Author Organization [facility] Address [address] [place] [address]. [place], [place] [address] [place] [address] Care Team Providers Care Assistant Store Manager Operations Name Role Phone Tony Lang MD Primary Care Provider [phone] Encounter Details Date Type Department Care Team (Late st Contact Info) Description 02/27/2017 Abstract [facility] Family Medicine [facility] [address] [place] [phone] [place] [address] [place] [phone] Social History Tobacco Use Types Packs/Day Years Used Date Smoking Tobacco: Never Assessed Comments Unknown Sex and Gender Information Value Date Recorded Sex Assigned at Not on file Legal Sex Female 2:59 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 Gender Identity Not on file Sexual Orientation Not on file documented as of this encounter Last Filed Vital Signs Vital Sign Reading Time Taken Comments Blood Pressure 108/74 02/27/2017 9:23 AM CDT Pulse 69 02/27/2017 9:23 AM CDT Temperature - - Respiratory Rate - - Oxygen Saturation - - Inhaled Oxygen Concentration - - Weight 88 kg (194 lb) 02/27/2017 9:23 AM CDT Height 154.9 cm (5' 1 ) 02/27/2017 9:23 AM CDT Body Mass Index 36.66 02/27/2017 9:23 AM CDT documented in this encounter Progress Notes * Mimi Carrillo MD - 02/27/2017 8:40 AM CDT Chief Complaint Pt presents with cough and sneezing x 2 weeks. History of Present Illness HPI Free Text: 36 yo F with cough, post nasal drip, sneezing x 2 weeks. Pt has tried mucinex and sudafed otc with some help but not much. Pt also had some inflammation over her maxillary sinuses. Pt denies any sick contacts. concerned for sinusitis triggered by allergic rhinitis. Pt reports she is unable to tolerate nasal sprays. will also r/o flu. Pt denies any f/n/v/cp/sob/body aches. Review of Systems See HPI for pertinent [...] Tablet; TAKE 1 TABLET DAILY DIRECTED; Therapy: 70Uqn6969 to (Evaluate:26Jun2016); Last Rx:[id number] Ordered Rx By: Tony Lang; Dispense: 90 Days ; #:90 Tablet; Refill: 1; For: Restless legs syndrome; EDWARD= N; Record 2. Gabapentin 300 MG Oral Capsule; TAKE 1 CAPSULE 3 TIMES DAILY; Therapy: 26Mar2016 to (Evaluate:[id number]) Requested for: 26Mar2016; Last Rx:[id number] Ordered Rx By: Mimi Carrillo; Dispense: 30 Days ; #:90 Capsule; Refill: 3; For: Neuropathy; EDWARD = N; Verified Transmission to [employer]; Last Updated By: MusicXray; 03/26/2016 9:12:13 AM 3. Gabapentin 300 MG Oral Capsule; take one tab po daily for 1-2 weeks and then may increase to 2 tabs at night; Therapy: 33Jwm8490 to (Last Rx:[id number]) Requested for: [id number] Ordered Rx By: Tony Lang; Dispense: 0 Days ; #:90 Capsule; Refill: 2; For: Restless legs syndrome; EDWARD= N; Verified Transmission to [employer]; Last Updated By: MusicXray; 12/29/2015 1:33:11 PM 4. Montelukast Sodium 10 MG Oral Tablet; TAKE 1 TABLET AT BEDTIME; Therapy: 87Byk0896 to (Last Rx:[id number]) Requested for: 26Mar2016 Ordered Rx By: Mimi Carrillo; Dispense: 0 Days ; #:30 Tablet; Refill: 3; For: Allergic rhinitis; EDWARD = N; Verified Transmission to [employer]; Last Updated By: MusicXray; 03/26/20168:59:13 AM 5. Naproxen 500 MG Oral Tablet; TAKE 1 TABLET BY MOUTH TWICE DAILY; Therapy: 71Dkr7824 to (Evaluate:86Nwm9758) Requested for: 03Msl8973; Last Rx:[id number] Ordered Rx By: Tony Lang; Dispense: 30 Days ; #:60 TAB; Refill: 0; For: PMH: Choking sensation, Seborrheic dermatitis; EDWARD = N; Verified Transmission to [employer]; Last Updated By: MusicXray; 12/13/2014 9:22:02 AM 6. Ventolin HFA 108 (90 Base) MCG/ACT Inhalation Aerosol Solution; 1-2 puffs 30- 60 min prior to exercise; Therapy: 06Wed7400 to (Last Rx:[id number]) Requested for: 82Czr8512 Ordered Rx By: Dai Bianchi; Dispense: 0 Days ; #:1 X 18 GM Inhaler; Refill: 0; For: Cough variant asthma; EDWARD = N; Verified Transmission to [employer] [address]36; Last Updated By: MusicXray; 12/17/2016 8:40:03 AM 7. Vitamin A 19137 UNIT Oral Capsule; Take 4 capsules (100,000 units) PO QD x3days and then take 2 capsules (50,000 units) PO QD x 14 days for vitamin A deficiency; Therapy: 08Aug2016 to (Last Rx:08Aug2016) Requested for: 08Aug2016 Ordered Rx By: Mimi Carrillo; Dispense: 0 Days ; #:40 Capsule; Refill: 0; For: Vitamin a deficiency; EDWARD = N; Verified Transmission to [employer] 74107; Last Updated By: MusicXray; 08/08/2016 2:11:04 AM Allergies 1. Lodine Recorded By: Adilene Ortega; 02/18/2014 10:18:29 AM Vitals Recorded: 27Feb2017 09:23AM Temperature 98.5 F Heart Rate 69 Respiration 14 Systolic 108 Diastolic 74 O2 Saturation 97 Height 5 ft 1 in Weight 194 lb BMI Calculated 36.66 BSA Calculated 1.86 Physical Exam Constitutional General appearance: Abnormal. patient was observed to be moderately obese, but well developed and well nourished. Eyes Conjunctiva and lids: No swelling, erythema or discharge. Pupils and irises: Equal, round and reactive to light. Ears, Nose, Mouth, and Throat External inspection of ears and nose: Normal. Otoscopic examination: Tympanic membranes translucent with normal light reflex. Canals patent without erythema. Oropharynx: Abnormal. post nasal drip appreciated. Sinuses: pt reports fullness in maxillary sinuses Pulmonary Respiratory effort: No increased work of [...] and time: Normal. Mood and affect: Normal. Results/Data *Influenza A + B Test In Office 27Feb2017 10:13AM Mimi Carrillo Test Name Result Flag Reference Flu A Negative Flu B Negative Internal QC Verified Yes Counseling The patient was counseled regarding instructions for management, patient and family education and importance of compliance with treatment. Assessment 1. Sinusitis (473.9) (J32.9) 2. Cough (786.2) (R05) Plan Cough, Sinusitis 1. Benzonatate 100 MG Oral Capsule (Tessalon Perladama); TAKE 1 CAPSULE 3 TIMES DAILY NEEDED Rx By: Mimi Carrillo; Dispense: 10 Days ; #:30 Capsule; Refill: 0; For: Cough, Sinusitis; EDWARD = N; Verified Transmission to [employer]; Last Updated By: MusicXray; 02/27/20173:40:27 PM Formulary Override Reason: No Formulary Equivalent Exists Flu-like symptoms 2. *Influenza A + B Test In Office; Status:Complete; Done: 27Feb2017 10:13AM Performed:In Office; Due:29Mar2017;Ordered; For:Flu-like symptoms; Ordered By:Mimi Carrillo; Sinusitis 3. Amoxicillin-Pot Clavulanate 875-125 MG Oral Tablet (Augmentin); Take 1 tab PO BID x7 days Rx By: Mimi Carrillo; Dispense: 7 Days ; #:14 Tablet; Refill: 0; For: Sinusitis; EDWARD = N; Verified Transmission to [employer]; Last Updated By: MusicXray; 02/27/2017 3:40:26 PM Formulary Override Reason: No Formulary Equivalent Exists Discussion/Summary 1) sinusitis 36 yo F with cough, post nasal drip, sneezing x 2 weeks. Pt has tried mucinex and sudafed otc with some help but not much. Pt also had some inflammation over her maxillary sinuses. Pt denies any sickcontacts. -concerned for sinusitis triggered by allergic rhinitis. Pt reports she is unable to tolerate nasalsprays. -given that sxs have persisted x2 weeks will consider a bacterial cause and treat with abx -flu swab in office resulted NEGATIVE. Pt given this result prior to leaving -Discussed with pt that her sxs are likely 2/2 sinusitis and since her sxs have persisted for 2 weeks it is more likely a bacterial cause. Given this, will prescribe abx and a cough suppressant. -Prescribed Tessalon pereles for cough and Augmentin 1 tab po BID x7days f/u PRN Verified Results *Influenza A + B Test In Office 27Feb2017 10:13AM Mimi Carrillo Test Name Result Flag Reference Flu A Negative Flu B Negative Internal QC Verified Yes Signatures Electronically signed by : Mimi Carrillo M.D.; Feb 27 2017 7:18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 (Author) documented in this encounter Plan of Treatment Not on file documented as of this encounter Procedures Procedure Name Priority Date/Time Associated Diagnosis Comments INFLUENZA A & B Routine 02/27/2017 10:13 AM CDT documented in this encounter Results * INFLUENZA A & B (02/27/2017 10:13 AM CDT) INFULENZA A AB Negative [facility] OUP TO EPIC CONVERSION INFLUENZA B AB Negative [facility] OUP TO EPIC CONVERSION Internal Control: Yes [facility] TO EPIC CONVERSION 02/27/2017 10:1 3 AM CDT 02/27/2017 10:13 AM CDT Narrative [facility] TO EPIC CONVERSION - 02/27/2017 10:13 AM CDT Result Communication: Discussed results with patient us Mimi Carrillo MD MICROBIOLOGY - GENERAL ORDERABLE S Final Result [facility] TO EPIC CONVERSION documented in this encounter Visit Diagnoses Not on filedocumented in this encounter Care Teams Assistant Store Manager Operations Relationship Specialty Start Date End Date Tony Lang MD [address] [place] [address] PCP - General 08/06/16 07/23/18 documented as of this encounter
--- OUTSIDE RECORDS SUMMARY | 2024-05-29 15:43 | XMS_ITS | Encounter Summary ---
Author Organization [facility] Address [address] [place] [address]. [place], [place] [address] [place] [address] Care Team Providers Care Compounding And Finishing Supervisor Name Role Phone Tony Lang MD Primary Care Provider [phone] Tony Lang MD Primary Care Provider Tony Lang MD Primary Care Provider [phone] Encounter Details Date Type Department Care Team (Late st Contact Info) Description 07/05/2016 Abstract [facility] Family Medicine [facility] [address] [place] [address] Mimi Carrillo MD [address] [place] [address] Social History Tobacco Use Types Packs/Day Years Used Date Smoking Tobacco: Never Assessed Comments Unknown Sex and Gender Information Value Date Recorded Sex Assigned at Not on file Legal Sex Female 2:59 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 Gender Identity Not on file Sexual Orientation Not on file documented as of this encounter Last Filed Vital Signs Vital Sign Reading Time Taken Comments Blood Pressure 111/75 07/05/2016 8:14 AM SAS ARCHITECT Pulse 84 07/05/2016 8:14 AM SAS ARCHITECT Temperature - - Respiratory Rate - - Oxygen Saturation - - Inhaled Oxygen Concentration - - Weight 87.5 kg (193 lb) 07/05/2016 8:14 AM SAS ARCHITECT Height 154.9 cm (5' 1 ) 07/05/2016 8:14 AM SAS ARCHITECT Body Mass Index 36.47 07/05/2016 8:14 AM SAS ARCHITECT documented in this encounter Progress Notes * Mimi Carrillo MD - 07/05/2016 8:00 AM CST Chief Complaint Pt presents with bilateral knee pain and swelling x 1 month. History of Present Illness HPI Free Text: 36 yo F presents c/o bilateral knee pain x1mo, but R>>L. Pt denies any trauma to her knees. She reports she squatted down to pickup some cups and she had trouble standing back up. Pt denies hearing any pooping of the knees. Pt denies any locking up of the knees when walking. She did have bothknees swell up on her when she was at [facility] last week. Pt has tried Tylenol 1000mg PO BID PRN, but to no avail. Pt is unable to take NSAIDs as she is due to have a partial hysterectomy next week. Pt also reports that she is still noticing a generalized hair loss. Pt denies any bald patches and denies any itiching. Pt's TSH, CBC and iron have all been assessed and within normal limits. Pt is wondering what could be the cause of her hair loss. Review of Systems See HPI for pertinent positives. Active Problems 1. Acute myofascial pain (729.1,338.19) (M79.1,R52) 2. Adnexal cyst (625.8) (N94.9) 3. Allergic rhinitis (477.9) (J30.9) 4. Breast pain (611.71) (N64.4) 5. Carpal tunnel syndrome (354.0) (G56.00) 6. Cough variant asthma (493.82) (J45.991) 7. DUB (dysfunctional uterine bleeding) (626.8) (N93.8) 8. Fibromyalgia (729.1) (M79.7) 9. Flu vaccine need (V04.81) (Z23) 10. Hair loss (704.00) (L65.9) 11. Hypothyroidism (244.9) (E03.9) 12. IBS (irritable bowel syndrome) (564.1) (K58.9) 13. Irregular menses (626.4) (N92.6) 14. Neuropathy (355.9) (G62.9) 15. Piriformis syndrome (355.0) (G57.00) 16. Restless legs syndrome (333.94) (G25.81) 17. Seborrheic dermatitis (690.10) (L21.9) 18. Vitamin d deficiency (268.9) (E55.9) Past Medical [...] Tablet; TAKE 1 TABLET DAILY DIRECTED; Therapy: 40Gub4215 to (Evaluate:26Jun2016); Last Rx:[id number] Ordered Rx By: Tony Lang; Dispense: 90 Days ; #:90 Tablet; Refill: 1; For: Restless legs syndrome; EDWARD= N; Record 2. Gabapentin 300 MG Oral Capsule; TAKE 1 CAPSULE 3 TIMES DAILY; Therapy: 26Mar2016 to (Evaluate:77Jai7359) Requested for: 26Mar2016; Last Rx:[id number] Ordered Rx By: Mimi Carrillo; Dispense: 30 Days ; #:90 Capsule; Refill: 3; For: Neuropathy; EDWARD = N; Verified Transmission to [employer] Last Updated By: Mezmeriz; 03/26/2016 9:12:13 AM 3. Gabapentin 300 MG Oral Capsule; take one tab po daily for 1-2 weeks and then may increase to 2 tabs at night; Therapy: 09Fzx3862 to (Last Rx:[id number]) Requested for: [id number] Ordered Rx By: Tony Lang; Dispense: 0 Days ; #:90 Capsule; Refill: 2; For: Restless legs syndrome; EDWARD= N; Verified Transmission to [employer] Last Updated By: Mezmeriz; 12/29/2015 1:33:11 PM 4. Montelukast Sodium 10 MG Oral Tablet; TAKE 1 TABLET AT BEDTIME; Therapy: 21Sep2014 to (Last Rx:[id number]) Requested for: 26Mar2016 Ordered Rx By: Mimi Carrillo; Dispense: 0 Days ; #:30 Tablet; Refill: 3; For: Allergic rhinitis; EDWARD = N; Verified Transmission to [employer] Last Updated By: Mezmeriz; 03/26/20168:59:13 AM 5. Naproxen 500 MG Oral Tablet; TAKE 1 TABLET BY MOUTH TWICE DAILY; Therapy: 79Fub9533 to (Evaluate:95Jgh3345) Requested for: 70Xsu6646; Last Rx:[id number] Ordered Rx By: Tony Lang; Dispense: 30 Days ; #:60 TAB; Refill: 0; For: PMH: Choking sensation, Seborrheic dermatitis; EDWARD = N; Verified Transmission to [employer] Last Updated By: Mezmeriz; 12/13/2014 9:22:02 AM Allergies 1. Lodine Recorded By: Adilene Ortega; 02/18/2014 10:18:29 AM Vitals Recorded: 05Jul2016 08:14AM Temperature 99.1 F Heart Rate 84 Respiration 15 Systolic 111 Diastolic 75 O2 Saturation 97 Height 5 ft 1 in Weight 193 lb BMI Calculated 36.47 BSA Calculated 1.86 Physical Exam Constitutional General appearance: No acute distress, well appearing and well nourished. Eyes Conjunctiva and lids: [...] No lymphadenopathy. Musculoskeletal Gait and station: Normal. full ROM and no bony abnormalities of b/l knees. no swelling, erythema, popping/locking of b/l knees. Knees are stable b/l. mild ttp along medial aspect of joint line in b/lknees. +Zoila's test also on medial aspect of b/l knees R>L. Skin Skin and subcutaneous tissue: Normal without rashes or lesions. pt c/o hair thinning but no bald patches or itching noted. Psychiatric Orientation to person, place, and time: Normal. Mood and affect: Normal. Counseling The patient was counseled regarding instructions for management, patient and family education and importance of compliance with treatment. Assessment 1. Hair loss (704.00) (L65.9) 2. Knee pain, bilateral (719.46) (M25.561,M25.562) Plan Hair loss 1. Vitamin A; Status:In Progress - Specimen/Data Collected; Done: 05Jul2016 Perform:[facility]; Due:98Vpv9455; Last Updated By:Natalie Arroyo; 07/05/2016 9:14:28 AM;Ordered; For:Hair loss; Ordered By:Mimi Carrillo; 2. Zinc; Status:In Progress - Specimen/Data Collected; Done: 05Jul2016 Perform:[facility]; Due:[id number]; Last Updated By:Natalie Arroyo; 07/05/2016 9:14:28 AM;Ordered; For:Hair loss; Ordered By:Mimi Carrillo; Discussion/Summary 1) bilateral knee pain (R>L) bilateral knee pain x1mo, but R>>L. Pt denies any trauma to her knees. She reports she squatted down to pickup some cups and she had trouble standing back up. Pt denies hearing any pooping of the knees. Pt denies any locking up of the knees when walking. She did have both knees swell up on her when she was at [facility] last week. -Pt has tried Tylenol 1000mg PO BID PRN, but to no avail. Pt is unable to take NSAIDs as she is dueto have a partial hysterectomy next week. -on exam: no swelling, erythema, popping/locking of b/l knees. Knees are stable b/l. mild ttp alongmedial aspect of joint line in b/l knees. +Zoila's test also on medial aspect of b/l knees R>L. -Discussed the option of PT vs knee injection for pt as she has full ROM and no bony abnormalities -Pt opted to do home PT exercises and will consider formal PT and knee injections if home PT exercises are not effective 2) hair loss chronic generalized hair loss. Pt denies any bald patches and denies any itching. Pt's TSH, CBC and iron have all been assessed and within normal limits. Pt is wondering what could be the cause of her hair loss. Discussed with pt that hair loss can be genetic, due to stress, due to medications, etc ordered vit A and zinc labs to r/o if these are causes for hair loss. COunseled pt if these labs come back normal as well, she may benefit from a referral to dermatology. pt conveyed understanding and is agreeable to this plan provided handouts on alopecia and telogen effluvium Signatures Electronically signed by : Mimi Carrillo M.D.; Jul 05 2016 9:22AM SAS ARCHITECT (Author) documented in this encounter Plan of Treatment Not on file documented as of this encounter Procedures Procedure Name Priority Date/Time Associated Diagnosis Comments ZINC PLASMA Routine 07/05/2016 4:22 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 VITAMIN A Routine 07/05/2016 4:22 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 documented in this encounter Results * (ABNORMAL) VITAMIN A (07/05/2016 4:22 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) VITAMIN A (RETINOL) S/P/B 32(L) [facility] TO EPIC CONVERSION Comment: Result Comment: Reference range: 38 to 98 Unit: mcg/dL Vitamin supplementation within 24 hours prior to blood draw may affect the accuracy of the results. This test was developed and its analytical performance characteristics have been determined by [facility] [place], [place]. It has not been cleared or approved by the U.S. Food and Drug Administration. This assay has been validated pursuant to the CLIA regulations and is used for clinical purposes. Test Performed by [facility] [employer] [facility], [address] [place] [address] Eric Piper M.D., Ph.D., Director of Laboratories , CLIA [id number] 07/05/2016 4:22 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 07/05/2016 4:22 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 Narrative [facility] TO EPIC CONVERSION - 07/10/2016 4:07 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 Result Communication: Mail Results to Patient Mimi Carrillo MD LABORATORY Final Result [facility] TO [facility] CONVERSION * ZINC PLASMA (07/05/2016 4:22 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) ZINC S/P/B 74 [facility] TO EPIC CONVERSION Comment: Result Comment: Reference range: 60 to 130 Unit: mcg/dL Test Performed by [facility], [address] [place] [address] Eric Piper M.D., Ph.D., Director of Laboratories , CLIA [id number] 07/05/2016 4:22 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 07/05/2016 4:22 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 Narrative [facility] TO EPIC CONVERSION - 07/07/2016 4:05 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 Result Communication: Mail Results to Patient Mimi Carrillo MD LABORATORY Final Result [facility] TO EPIC CONVERSION documented in this encounter Visit Diagnoses Not on filedocumented in this encounter Care Teams Compounding And Finishing Supervisor Relationship Specialty Start Date End Date Tony Lang MD [address] [place] [address] PCP - General 08/06/16 07/23/18 [place] [address] PCP - General 07/30/16 08/05/16 Tony Lang MD [address] [place] [id number] PCP - General 07/05/16 07/29/16 documented as of this encounter
--- OUTSIDE RECORDS SUMMARY | 2024-05-29 15:43 | XMS_ITS | Encounter Summary ---
Author Organization [facility] Address [facility]. [place], [place] [address] [place] [address] Care Team Providers Care Test Manager Name Role Phone Mimi Carrillo MD Primary Care Provider [phone] Reason for Visit * Reason Comments Cough cough - some what pr oductive, harder to breath, ears feel clogged. she finished the abx that she was put on last week, and she finished the cough syrup. Encounter Details Date Type Department Care Team (Late st Contact Info) Description 09/25/2018 9:20 AM CDT Office Visit [facility] Medical [facility] Family Medicine [facility] [address] [place] [address] Alessandra Zepeda, [facility] [address] [place] [address] Cough (cough - some what productive, harder to breath, ears feel clogged. she finished the abx that she was put on last week, and she finished the cough syrup. ) Social History Tobacco Use Types Packs/Day Years Used Date Smoking Tobacco: Every Day Smokeless Tobacco: Never Alcohol Use Standard Drinks/Week Comments Yes 0 (1 standard drink = 0.6 oz pur e alcohol) OCC. 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 Gender Identity Not on file Sexual Orientation Not on file documented as of this encounter Last Filed Vital Signs Vital Sign Reading Time Taken Comments Blood Pressure 110/76 09/25/2018 9:31 AM CDT Pulse 76 09/25/2018 9:31 AM CDT Temperature 36.7 ??C (98 ??F) 09/25/2018 9:31 AM CDT Respiratory Rate 14 09/25/2018 9:31 AM CDT Oxygen Saturation 95% 09/25/2018 9:31 AM CDT Inhaled Oxygen Concentration - - Weight 91.6 kg (202 lb) 09/25/2018 9:31 AM CDT Height 154.9 cm (5' 1 ) 09/25/2018 9:31 AM CDT Body Mass Index 38.17 09/25/2018 9:31 AM CDT documented in this encounter Patient Instructions * Patient Instructions* ETHEL Flores - 09/25/2018 9:20 AM CDT Finish antibiotic; start prednisone 10mg tabs 3 tabs/ day x 3 days then 2 tabs/ day x 3 days then 1tab/ day x 3 days; Use Symbicort 2 puffs twice daily, do not use albuterol within 2 hours of symbicort.; Can continue to use mucinex sinus max Refilled generic singulair Follow up with Dr Carrillo for worsening symptoms. documented in this encounter Progress Notes * ETHEL Flores - 09/25/2018 9:20 AM CDT Images from the original note were not included. Office Visit Encounter Date: 09/25/2018 Chief Complaint: 38-year-old female presents for Cough (cough - some what productive, harder to breath, ears feel clogged. she finished the abx that she was put on last week, and she finished the cough syrup. ) . History of Present Illness: Pt here for continued c/o cough, she no longer has ear pain, she feels she is tighter when she breaths. She is using albuterol at least 3-4 times/day; denies fever or chills, occasionally productive of cough. She has cut down to about 5 cigarettes/day. She used to take antihistamine but says it quit working She did take singulair at one point but insurance changed and stopped taking it. Also taking mucinex sinus max ROS: Review of Systems Constitutional: Negative for chills and fever. HENT: Positive for congestion. Ear pressure, sinus congestion, no pain Respiratory: Positive for cough, sputum production, shortness of breath and wheezing. Cardiovascular: Negative for chest pain. Gastrointestinal: Negative for nausea and vomiting. Neurological: Negative for dizziness. Medications: Current Outpatient Medications: ??? albuterol sulfate HFA (VENTOLIN HFA) 108 (90 Base) MCG/ACT inhaler, , Disp: , Rfl: ??? budesonide-formoterol 160-4.5 MCG/ACT inhaler, Inhale 2 puffs into the lungs 2 (two) times daily., Disp: 1 Inhaler, Rfl: 1 ??? montelukast 10 MG tablet, Take 1 tablet (10 mg total) by mouth nightly at bedtime., Disp: 30 tablet, Rfl: 1 ??? omeprazole 20 MG capsule, Take 1 capsule (20 mg total) by mouth daily., Disp: 30 capsule, Rfl: 1 ??? predniSONE 10 mg tablet, Take 3 tablets/day for 3 days, then 2 tablets/day x 3 days then 1 tablet/day x 3 days, Disp: 18 tablet, Rfl: 0 ??? vitamin D2, ergocalciferol, 45977 UNITS capsule, Take 1 capsule (50,000 Units total) by mouth weekly., Disp: 8 capsule, Rfl: 0 ??? doxycycline monohydrate 100 MG capsule, Take 1 capsule (100 mg total) by mouth 2 (two) times daily for 10 days., Disp: 20 capsule, Rfl: 0 ??? guaifenesin-codeine (CHERATUSSIN AC) 100-10 MG/5ML syrup, Take 5 mLs by mouth every 4 (four) hours as needed for Cough. At bedtime only, Disp: 180 mL, Rfl: 0 ??? ranitidine 150 MG tablet, TK 1 T PO BID, Disp: , Rfl: 6 Allergies: Allergies Allergen Reactions ??? Etodolac Unknown [...] file Gets together: Not on file Attends baptism service: Not on file Active member of [...] Family history unknown: Yes Objective: Filed Vitals: 09/25/18 0931 BP: 110/76 Pulse: 76 Resp: 14 Temp: 98 ??F (36.7 ??C) SpO2: 95% Weight: 91.6 kg (202 lb) Height: 5' 1 (1.549 m) Physical Exam Constitutional: She is oriented to person, place, and time and well-developed, well-nourished, and in no distress. HENT: Head: Normocephalic. Right Ear: No tenderness. Tympanic membrane is injected and erythematous. Tympanic membrane is not bulging. Left Ear: Tympanic membrane and ear canal normal. Mouth/Throat: Uvula is midline and oropharynx is clear and moist. Eyes: EOM are normal. Pupils are equal, round, and reactive to light. Neck: Normal range of motion. Cardiovascular: Normal rate, regular rhythm and normal heart sounds. Pulmonary/Chest: Effort normal and breath sounds normal. No respiratory distress. Musculoskeletal: Normal range of motion. Lymphadenopathy: She has no cervical adenopathy. Neurological: She is alert and oriented to person, place, and time. Gait normal. GCS score is 15. Skin: Skin is warm and dry. No erythema. Psychiatric: Affect and judgment normal. Labs: Procedure: Procedures Assessment: 1. Cough variant asthma budesonide-formoterol 160-4.5 MCG/ACT inhaler montelukast 10 MG tablet predniSONE 10 mg tablet Plan: Silke was seen today for cough. Diagnoses and all orders for this visit: Cough variant asthma - budesonide-formoterol 160-4.5 MCG/ACT inhaler; Inhale 2 puffs into the lungs 2 (two) times daily. - montelukast 10 MG tablet; Take 1 tablet (10 mg total) by mouth nightly at bedtime. - predniSONE 10 mg tablet; Take 3 tablets/day for 3 days, then 2 tablets/day x 3 days then 1 tablet/day x 3 days Finish antibiotic; start prednisone 10mg tabs 3 tabs/ day x 3 days then 2 tabs/ day x 3 days then 1tab/ day x 3 days; Use Symbicort 2 puffs twice daily, do not use albuterol within 2 hours of symbicort.; Can continue to use mucinex sinus max Refilled generic singulair Follow up with Dr Carrillo for worsening symptoms. ETHEL Flores documented in this encounter Plan of Treatment Not on file documented as of this encounter Visit Diagnoses Diagnosis Cough variant asthma ([facility])- Primary Cough variant asthma documented in this encounter Care Teams Test Manager Relationship Specialty Start Date End Date Mimi Carrillo MD [address] [place] [address] PCP - General FAMILY PRACTICE 07/24/18 documented as of this encounter
--- OUTSIDE RECORDS SUMMARY | 2024-05-29 15:43 | XMS_ITS | Encounter Summary ---
Author Organization [facility] Address [address] [place] [address]. 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 Gender Identity Not on file Sexual Orientation Not on file documented as of this encounter Plan of Treatment Not on file documented as of this encounter Procedures Procedure Name Priority Date/Time Associated Diagnosis Comments OVA AND PARASITES Routine 10/10/2017 10: 58 AM CDT FECAL FAT, QUALITATIVE Routine 8 10:58 AM CDT MISCELLANEOUS LAB TEST Routine 8 10:58 AM CDT OCCULT BLOOD, FECES Routine 10/10/2017 1 0:58 AM CDT CRYPTOSPOR/GIARDIA AG, EIA Routine 10/10/2017 10:58 AM CDT documented in this encounter Results * MISCELLANEOUS LAB TEST (10/10/2017 10:58 AM CDT) REPORT STATUS TNP [facility] UP TO EPIC CONVERSION Comment: Result Comment: No [employer] OC sampling bottle received. ?TEST: ??[id number] ??Occult Blood, Fecal, [place] 10/10/2017 10:5 8 AM CDT 10/10/2017 10:58 AM CDT Narrative [facility] TO EPIC CONVERSION - 10/16/2017 7:35 PM CDT Result Communication: Mail Results to Patient Mimi Carrillo MD LABORATORY Final Result [facility] TO EPIC CONVERSION * CRYPTOSPOR/GIARDIA AG, EIA (10/10/2017 10:58 AM CDT) GIARDIA ANTIGEN (STOOL) Negative Negative [facility] TO EPIC CONVERSION CRYPTOSPOR AG (STOOL) Negative Negative [facility] TO EPIC CONVERSION 10/10/2017 10:5 8 AM CDT 10/10/2017 10:58 AM CDT Narrative [facility] TO EPIC CONVERSION - 10/16/2017 7:35 PM CDT Result Communication: Mail Results to Patient Mimi Carrillo MD BODY FLUIDS AND STOOLS ORDERABLE S Final Result Performing Organization Address [facility] de Phone Number [facility] TO EPIC CONVERSION * OVA AND PARASITES (10/10/2017 10:58 AM CDT) OVA & PARASITE SMEAR (STOOL) Final report [facility] TO EPIC CONVERSION Comment: Result Comment: These results were obtained using wet preparation(s) and trichrome stained smear. This test does not include testing for Cryptosporidium parvum, Cyclospora, or Microsporidia. RESULT [facility] T O EPIC CONVERSION Comment:Result Comment: No o va, cysts, or parasites seen. 10/10/2017 10:5 8 AM CDT 10/10/2017 10:58 AM CDT Narrative [facility] TO EPIC CONVERSION - 10/16/2017 7:35 PM CDT Result Communication: Mail Results to Patient us Mimi Carrillo MD BODY FLUIDS AND STOOLS ORDERABLE S Final Result Performing Organization Address [facility] de Phone Number [facility] TO EPIC CONVERSION * FECAL FAT, QUALITATIVE (10/10/2017 10:58 AM CDT) FECAL FAT QUALITATIVE (STOOL) Normal [facility] TO EPIC CONVERSION Comment: Result Comment: ? Normal (<60 Droplets/HPF) FECAL FAT QUALITATIVE (STOOL) Normal [facility] TO EPIC CONVERSION Comment: Result Comment: ?Normal (<100 Droplets/HPF) 10/10/2017 10:5 8 AM CDT 10/10/2017 10:58 AM CDT Narrative [facility] TO EPIC CONVERSION - 10/16/2017 7:35 PM CDT Result Communication: Mail Results to Patient Mimi Carrillo MD LABORATORY Final Result Performing Organization Address [facility] de Phone Number [facility] TO EPIC CONVERSION * OCCULT BLOOD, FECES (10/10/2017 10:58 AM CDT) OCCULT BLOOD FECAL TNP [facility] TO EPIC CONVERSION Comment:Result Comment: No P [employer]lymedco OC sampling bottle received. 10/10/2017 10:5 8 AM CDT 10/10/2017 10:58 AM CDT Narrative [facility] TO EPIC CONVERSION - 10/16/2017 7:35 PM CDT Result Communication: Mail Results to Patient Mimi Carrillo MD BODY FLUIDS AND STOOLS ORDERABLE S Final Result Performing Organization Address [facility] de Phone Number [facility] TO EPIC CONVERSION documented in this encounter Visit Diagnoses Not on filedocumented in this encounter Care Teams Refinery Process Engineer Relationship Specialty Start Date End Date Tony Lang MD [address] [place] [address] PCP - General 08/06/16 2 documented as of this encounter
--- OUTSIDE RECORDS SUMMARY | 2024-05-29 15:43 | XMS_ITS | Encounter Summary ---
Author Organization [facility] Address [facility] [place], [place] [address] [place] [address] Care Team Providers Care Electronic Heat Seal Operator Name Role Phone Tony Lang MD Primary Care Provider [phone] Tony Lang MD Primary Care Provider [phone] Tony Lang MD Primary Care Provider [phone] Jack Neely MD Primary Care Provider [phone] Tony Lang MD Primary Care Provider [phone] Encounter Details Date Type Department Care Team (Latest Contact Info) Description 04/08/2016 Abstract [facility] Medical Group Social History Tobacco Use Types Packs/Day Years Used Date Smoking Tobacco: Never Assessed Comments Unknown Sex and Gender Information Value Date Recorded Sex Assigned at Not on file 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 If you have any questions, please contact the office at [phone] Have a blessed day, ~Dr Neely Verified Results TSH W Reflex Free T4 26Mar2016 09:20AM Jack Neely Test Name Result Flag Reference TSH w Reflex Free T4 1.24 mIU/mL 0.27-4.20 FREE T4 NOT INDICATED US PELVIS NON OB COMPLETE 21Mar2016 01:25PM Jack Neely Test Name Result Flag Reference US PELVIS NON OB COMPLETE (Report) FRANCISCO READ ADMIT/SERVICE DATE: 03/21/16 ACCT: [id number] DISCHARGE DATE: : 1980 SEX: F ORD SITE: [facility] OUTPATNT IMAGING PT TYPE: REG CLI ORDERING MD: JACK NEELY MD STUDY DATE REPORT # ORDER # [id number] ORDER ID 03/21/16 [id number] PROC CODE: [id number] PROCEDURE DESCRIPTION: US PELVIS NON OB COMPLETE IMPRESSION: 1. NORMAL THICKNESS OF THE ENDOMETRIUM. FLUID IN THE ENDOMETRIAL CAVITY, LIKELY BLOOD PRODUCTS. 2. THICK-WALLED CYST RIGHT ADNEXA WITH INTERNAL ECHOES AND PROMINENT BLOOD FLOW IN THE CHEUNG. LIKELY HEMORRHAGIC CYST OR CORPUS LUTEUM CYST. THIS MEASURES UP TO 1.7 CM. 3. FOLLICLE CYSTS LEFT OVARY. 4. NO OVARIAN TORSION. EXAMINATION: ULTRASOUND PELVIS NON-OB. TRANSABDOMINAL AND TRANSVAGINAL IMAGING. SPECTRAL ANALYSIS. EXAM DATE/TIME: 03/21/2016 9:38 AM CLINICAL HISTORY: 35 YEARS FEMALE WITH HISTORY OF DYSFUNCTIONAL UTERINE BLEEDING. HEAVY BLEEDING. PASSING BLOOD CLOTS. RIGHT LOWER QUADRANT CRAMPING ABDOMINAL PAIN. RIGHT PELVIC PAIN. COMPARISON: NONE TECHNIQUE: ULTRASOUND EXAMINATION OF THE PELVIS WAS PERFORMED UTILIZING TRANSABDOMINAL AND TRANSVAGINAL APPROACH TO ASSESS GRAYSCALE APPEARANCE, COLOR DOPPLER FLOW, AND SPECTRAL WAVEFORM CHARACTERISTICS. FINDINGS: UTERUS: 9.1 CM IN LENGTH. NO MYOMETRIAL MASS. ENDOMETRIAL STRIPE: 8.6 MM IN THICKNESS. FLUID IN THE ENDOMETRIAL CAVITY. LIKELY BLOOD PRODUCTS. CERVIX: SMALL CERVICAL CYST. RIGHT OVARY: 3.4 X 2.9 X 2.5 CM. CM. THICK-WALLED CYST RIGHT OVARY WITH BLOOD FLOW IN THE PERIPHERY. THIS MEASURES UP TO 1.7 CM. LIKELY HEMORRHAGIC CYST. BLOOD FLOW DETECTED RIGHT OVARY. LEFT OVARY: 2.6 X 2.5 X 2.3 CM. FOLLICLE CYSTS LEFT OVARY. BLOOD FLOW DETECTED LEFT OVARY ON SPECTRAL ANALYSIS. OTHER FINDINGS: NO FREE FLUID. VISIBLE BLADDER NOT ADEQUATELY DISTENDED. ELECTRONICALLY SIGNED BY: BETTIE MARTÍNEZ03/21/2016 1:30 PM documented in this encounter Plan of Treatment Not on file documented as of this encounter Visit Diagnoses Not on filedocumented in this encounter Care Teams Electronic Heat Seal Operator Relationship Specialty Start Date End Date Tony Lang MD [address] [place] [address] PCP - General 08/06/16 07/23/18 Tony Lang MD [address] [place] [address] PCP - General 07/30/16 08/05/16 [place] [address] PCP - General 07/05/16 07/29/16 Jack Neely MD [address] [place], [place] [address] PCP - General 07/04/16 07/04/16 [place] [address] PCP - General 03/26/16 07/03/16 documented as of this encounter
--- OUTSIDE RECORDS SUMMARY | 2024-05-29 15:43 | XMS_ITS | Encounter Summary ---
Author Organization [facility] Address [address] [place] [address]. [place], [place] [address] [place] [address] Care Team Providers Care Hydrogen Plant Operator Name Role Phone Mimi Carrillo MD Primary Care Provider [phone] Encounter Details Date Type Department Care Team (Latest Contact Info) Description 07/24/2018 7:31 PM FORESTRY SUPERVISOR - 07/24/2018 11:59 PM FORESTRY SUPERVISOR Hospital Encounter [facility] [place] [address] Mimi Carrillo MD [address] [place] [address] Discharge Disposition: Home or Self Care (Routine Discharge) Social History Tobacco Use Types Packs/Day Years Used Date Smoking Tobacco: Every Day Smokeless Tobacco: Never Alcohol Use Standard Drinks/Week Comments Yes 0 (1 standard drink = 0.6 oz pur e alcohol) OCC. Comments Unknown Sex and Gender Information Value Date Recorded Sex Assigned at Not on file Legal Sex Female 2:59 PM FORESTRY SUPERVISOR Gender Identity Not on file Sexual Orientation [...] Diagnosis Comments VITAMIN D, 25 OH Routine 07/24/2018 11:0 4 AM FORESTRY SUPERVISOR Low vitamin D level documented in this encounter Results * (ABNORMAL) VITAMIN D, 25 OH (07/24/2018 11:04 AM FORESTRY SUPERVISOR) VITAMIN D 25 HYDROXY S/P/B 19(L) 30 - 100 NG/ML 07/24/2018 9:15 PM FORESTRY SUPERVISOR [facility] Comment: ? INTERPRETATION ? DEFICIENT ??<20 ? INSUFFICIENT 20-29 ?SUFFICIENT 30-100 07/24/2018 11:0 4 AM FORESTRY SUPERVISOR Mimi Carrillo MD LABORATORY Final Result [facility] [address] [place] [address], documented in this encounter Visit Diagnoses Diagnosis Low vitamin D level documented in this encounter Care Teams Hydrogen Plant Operator Relationship Specialty Start Date End Date Mimi Carrillo MD [address] [place] [address] PCP - General FAMILY PRACTICE 07/24/18 documented as of this encounter
--- OUTSIDE RECORDS SUMMARY | 2024-05-29 15:43 | XMS_ITS | Encounter Summary ---
Author Organization [facility] Address [facility]6 [facility]. [place], [place] [address] [place] [address] Care Team Providers Care Maintenance Carpenter Name Role Phone Tony Lang MD Primary Care Provider [phone] Tony Lang MD Primary Care Provider [phone] Tony Lang MD Primary Care Provider [phone] Mimi Carrillo MD Primary Care Provider [phone] Tony Lang MD Primary Care Provider [phone] Encounter Details Date Type Department Care Team (Latest Contact Info) Description 03/30/2016 Abstract [facility] Medical Group Social History Tobacco Use Types Packs/Day Years Used Date Smoking Tobacco: Never Assessed Comments Unknown Sex and Gender Information Value Date Recorded Sex Assigned at Not on file Legal Sex Female 2:59 PM 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 AND 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 Gender Identity Not on file Sexual Orientation Not on file documented as of this encounter Plan of Treatment Not on file documented as of this encounter Visit Diagnoses Not on filedocumented in this encounter Care Teams Maintenance Carpenter Relationship Specialty Start Date End Date Tony Lang MD [address] [place], [place] [address] PCP - General 08/06/16 07/23/18 Tony Lang MD [address] [place], [place] [address] PCP - General 07/30/16 08/05/16 Tony Lang MD [address] [place] [address] PCP - General 07/05/16 07/29/16 Mimi Carrillo MD [address] [place] [address] PCP - General 07/04/16 07/04/16 Tony Lang MD [address] [place] [address] PCP - General 03/26/16 07/03/16 documented as of this encounter
--- OUTSIDE RECORDS SUMMARY | 2024-05-29 15:43 | XMS_ITS | Encounter Summary ---
Author Organization [facility] Address [address] [place] [address]. 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 No additional testing needed at this time. Your most recent vitamin A level was mildly low at 32 (38 is the low end of normal). I have prescribed a supplement for you. please pick it up at the pharmacy and take it as prescribed. Any questions or concerns please feel free to call the office at [phone]. Have a blessed day, ~Dr Carrillo Verified Results Vitamin A 05Jul2016 04:22PM Mimi Carrillo Test Name Result Flag Reference Vitamin A (Retinol) 32 L Reference range: 38 to 98 Unit: mcg/dL Vitamin supplementation within 24 hours prior to blood draw may affect the accuracy of the results. This test was developed and its analytical performance characteristics have been determined by [facility] [place]. It has not been cleared or approved by the U.S. Food and Drug Administration. This assay has been validated pursuant to the CLIA regulations and is used for clinical purposes. Test Performed by [facility], [employer] [place], [address] [place], [place] Eric Piper M.D., Ph.D., Director of Laboratories , CLIA [id number] Zinc 05Jul2016 04:22PM Mimi Carrillo Test Name Result Flag Reference Zinc 74 Reference range: 60 to 130 Unit: mcg/dL Test Performed by [employer], [employer] [place], [address] [place], [place] Eric Piper M.D., Ph.D., Director of Laboratories , CLIA [id number] Plan Vitamin a deficiency ?? Vitamin A 25749 UNIT Oral Capsule; Take 4 capsules (100,000 units) PO QD x3days and then take 2 capsules (50,000 units) PO QD x 14 days for vitamin A deficiency documented in this encounter Plan of Treatment Not on file documented as of this encounter Visit Diagnoses Not on filedocumented in this encounter Care Teams Geotechnical Engineering Technician Relationship Specialty Start Date End Date Tony Lang MD [address] [place] [address] [place] [address] PCP - General 08/06/16 07/23/18 documented as of this encounter
--- OUTSIDE RECORDS SUMMARY | 2024-05-29 15:43 | XMS_ITS | Encounter Summary ---
Author Organization [facility] Address [facility] [place] [address] [place] [address] Care Team Providers Care Brake Operator Sheet Metal Name Role Phone Tony Lang MD Primary Care Provider [phone] Tony Lang MD Primary Care Provider [phone] Tony Lang MD Primary Care Provider [phone] Jack Neely MD Primary Care Provider [phone] Tony Lang MD Primary Care Provider [phone] Encounter Details Date Type Department Care Team (Late st Contact Info) Description 03/26/2016 Abstract [facility] Family Medicine [facility] [address] [place] [address] Jack Neely MD [address] [place], [place] [id number] Social History Tobacco Use Types Packs/Day Years Used Date Smoking Tobacco: Never Assessed Comments Unknown Sex and Gender Information Value Date Recorded Sex Assigned at Not on file Legal Sex Female 2:59 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 Gender Identity Not on file Sexual Orientation Not on file documented as of this encounter Last Filed Vital Signs Vital Sign Reading Time Taken Comments Blood Pressure 118/70 03/26/2016 8:30 AM CDT Pulse 66 03/26/2016 8:30 AM CDT Temperature - - Respiratory Rate - - Oxygen Saturation - - Inhaled Oxygen Concentration - - Weight 86.6 kg (191 lb) 03/26/2016 8:30 AM CDT Height 154.9 cm (5' 1 ) 03/26/2016 8:30 AM CDT Body Mass Index 36.09 03/26/2016 8:30 AM CDT documented in this encounter Progress Notes * Jack Neely MD - 03/26/2016 8:00 AM CDT Chief Complaint Pt presents with left leg pain, wants results of u/s. History of Present Illness HPI Free Text: 35 yo F presents to go over the lab results letter that was sent to her regarding her recent pelvicU/S which showed a thick-walled cyst in the right adnexa that radiologists are thinking is likelya hemorrhagic cyst. Discussed with pt that she should follow up with FRACTIONATION PLANT SUPERVISOR. A referral was placed at her last visit. Pt also c/o recent hair loss and requesting a thyroid lab to be ordered. Pt reports an improvement on her b/l leg feeling of weight when she increased her Gabapentindose to 300mg PO BID. Pt still having neuropathy in her left leg. She reports that wearing her spanks helps with this sensation. Pt denies cp/sob/n/v/f/c/dewey. Review of Systems See HPI for pertinent positives. Active Problems 1. Acute myofascial pain (729.1,338.19) (M79.1,R52) 2. Allergic rhinitis (477.9) (J30.9) 3. Breast pain (611.71) (N64.4) 4. Carpal tunnel syndrome (354.0) (G56.00) 5. Cough variant asthma (493.82) (J45.991) 6. DUB (dysfunctional uterine bleeding) (626.8) (N93.8) 7. Fibromyalgia (729.1) (M79.7) 8. Flu vaccine need (V04.81) (Z23) 9. IBS (irritable bowel syndrome) (564.1) (K58.9) 10. Irregular menses (626.4) (N92.6) 11. Piriformis syndrome (355.0) (G57.00) 12. Restless legs syndrome (333.94) (G25.81) 13. Seborrheic dermatitis (690.10) (L21.9) 14. Vitamin d deficiency (268.9) (E55.9) Past Medical [...] Tablet; TAKE 1 TABLET DAILY DIRECTED; Therapy: 17Llj8988 to (Evaluate:26Jun2016); Last Rx:[id number] Ordered 2. Gabapentin 300 MG Oral Capsule; take one tab po daily for 1-2 weeks and then may increase to 2 tabs at night; Therapy: 34Sfq8045 to (Last Rx:[id number]) Requested for: 82Wxl6810 Ordered 3. Montelukast Sodium 10 MG Oral Tablet; TAKE 1 TABLET AT BEDTIME; Therapy: 21Sep2014 to (Last Rx:[id number]) Requested for: 04Ssr0604 Ordered 4. Naproxen 500 MG Oral Tablet; TAKE 1 TABLET BY MOUTH TWICE DAILY; Therapy: 21Sep2014 to (Evaluate:73Wfg0797) Requested for: 63Puw5549; Last Rx:[id number] Ordered Allergies 1. Lodine Immunizations Influenza --- Series1: 12Mar2016 Vitals Recorded: 26Mar2016 08:30AM Temperature 99.2 F Heart Rate 66 Respiration 14 Systolic 118 Diastolic 70 O2 Saturation 100 Height 5 ft 1 in Weight 191 lb BMI Calculated 36.09 BSA Calculated 1.85 Physical Exam Constitutional General appearance: No acute [...] time: Normal. Mood and affect: Normal. Results/Data US PELVIS NON OB COMPLETE 21Mar2016 01:25PM Jack Neely Test Name Result Flag Reference US PELVIS NON OB COMPLETE (Report) FRANCISCO YAP ADMIT/SERVICE DATE: 03/21/16 ACCT: [id number] DISCHARGE DATE: : 1980 SEX: F ORD SITE: [facility] OUTPATNT IMAGING PT TYPE: REG CLI ORDERING MD: JACK NEELY MD STUDY DATE REPORT # ORDER # EXT ORDER ID 03/21/16 [id number] PROC CODE: [id number] PROCEDURE DESCRIPTION: US PELVIS [...] ELECTRONICALLY SIGNED BY: BETTIE MARTÍNEZ03/21/2016 1:30 PM Counseling The patient was counseled regarding instructions for management, patient and family education and importance of compliance with treatment. Assessment 1. Hypothyroidism (244.9) (E03.9) 2. Neuropathy (355.9) (G62.9) 3. Hair loss (704.00) (L65.9) 4. DUB (dysfunctional uterine bleeding) (626.8) (N93.8) 5. Adnexal cyst (625.8) (N94.9) Plan Allergic rhinitis 1. Montelukast Sodium 10 MG Oral Tablet (Singulair); TAKE 1 TABLET AT BEDTIME Rx By: Jack Neely; Dispense: 0 Days ; #:30 Tablet; Refill: 3; For: Allergic rhinitis; EDWARD = N; Verified Transmission to [facility] [address]; Last Updated By: [employer]; 03/26/20168:59:13 AM Hypothyroidism 2. TSH W Reflex Free T4; Status:In Progress - Specimen/Data Collected; Done: 26Mar2016 Perform:[facility]; Due:25Apr2016; Last Updated By:Natalie Arroyo; 03/26/2016 9:20:33 AM;Ordered; For:Hypothyroidism; Ordered By:Jack Neely; Neuropathy 3. Gabapentin 300 MG Oral Capsule; TAKE 1 CAPSULE 3 TIMES DAILY Rx By: Jack Neely; Dispense: 30 Days ; #:90 Capsule; Refill: 3; For: Neuropathy; EDWARD = N; Verified Transmission to [facility] 91394; Last Updated By: [employer]; 03/26/2016 9:12:13 AM Discussion/Summary 1) Adenxal cyst/DUB 35 yo F presents to go over the lab results letter that was sent to her regarding her recent pelvicU/S which showed a thick-walled cyst in the right adnexa that radiologists are thinking is likelya hemorrhagic cyst. -Discussed with pt that she should follow up with FRACTIONATION PLANT SUPERVISOR. A referral was placed at her last visit. -Pt conveyed understanding and was agreeable to this plan 2) neuropathy Pt reports an improvement on her b/l leg feeling of weight when she increased her Gabapentindose to 300mg PO BID. -Pt still having neuropathy in her left leg. She reports that wearing her spanks helps with this sensation. Encouraged pt to continue to wear the spanks PRN if they provide sxs relief -Counseled pt to increase Gabapentin to 300mg PO TID PRN and noted that we can continue to go up onthis regimen as needed to help her alleviate the neuropathy sxs -pt conveyed understanding and was agreeable to this plan 3) hair loss Pt also c/o recent hair loss and requesting a thyroid lab to be ordered. -ordered TSH. results pending Signatures Electronically signed by : Jack Neely M.D.; Mar 26 2016 6:49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 (Author) documented in this encounter Plan of Treatment Not on file documented as of this encounter Procedures Procedure Name Priority Date/Time Associated Diagnosis Comments TSH W/REFLEX Routine 03/26/2016 9:20 AM CDT documented in this encounter Results * TSH W/REFLEX (SNS) (03/26/2016 9:20 AM CDT) TSH 1.24 0.27 - 4.20 mIU/mL [facility] CONVERSION Comment:Result Comment: FREE T4 NOT INDICATED 03/26/2016 9:20 AM CDT 03/26/2016 9:20 AM CDT Narrative [facility] CON[facility] - 03/26/2016 8:53 PM CDT Result Communication: Mail Results to Patient us Jack Neely MD LABORATORY Final Result Performing Organization Address City/State/RUST de Phone Number [facility] CONVERSION documented in this encounter Visit Diagnoses Not on filedocumented in this encounter Care Teams Brake Operator Sheet Metal Relationship Specialty Start Date End Date Tony Lang MD [address] [place], [place] [phone] PCP - General 08/06/16 07/23/18 Tony Lang MD [address] [place], [place] [id number] PCP - General 07/30/16 08/05/16 Tony Lang MD [address] [place], [place] [address] PCP - General 07/05/16 07/29/16 Jack Neely MD [place], [place] [id number] PCP - General 07/04/16 07/04/16 Tony Lang MD [address] [place] [address] PCP - General 03/26/16 07/03/16 documented as of this encounter
--- OUTSIDE RECORDS SUMMARY | 2024-05-29 15:43 | XMS_ITS | Encounter Summary ---
Author Organization [facility] Address [address] [place] [address]. [place], [place] [address] [place] [address] Care Team Providers Care Bondactor Machine Operator Name Role Phone Tony Lang MD Primary Care Provider [phone] Encounter Details Date Type Department Care Team (Late st Contact Info) Description 11/23/2016 Abstract [facility] Medical [facility] Family Medicine [facility] [address] [place] [address] Mimi Carrillo MD [address] [place] [address] Social History Tobacco Use Types Packs/Day Years Used Date Smoking Tobacco: Never Assessed Comments Unknown Sex and Gender Information Value Date Recorded Sex Assigned at Not on file Legal 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 Gender Identity Not on file Sexual Orientation Not on file documented as of this encounter Last Filed Vital Signs Vital Sign Reading Time Taken Comments Blood Pressure 107/69 11/23/2016 1:53 PM CDT Pulse 87 11/23/2016 1:53 PM CDT Temperature - - Respiratory Rate - - Oxygen Saturation - - Inhaled Oxygen Concentration - - Weight 88.9 kg (196 lb) 11/23/2016 1:53 PM CDT Height 154.9 cm (5' 1 ) 11/23/2016 1:53 PM CDT Body Mass Index 37.03 11/23/2016 1:53 PM CDT documented in this encounter Progress Notes * Mimi Carrillo MD - 11/23/2016 1:45 PM CDT Chief Complaint Pt presents with severe migraine headaches and wart on left hand. History of Present Illness HPI Free Text: 36 yo F presents c/o worsening migraine HAs. Pt also has two small warts on the palmof her left hand that she would like to have treated. migraines: chronic condition. Pt has had them off and on for years, but worsening over the last fewmonths. pt reports she is unable to see a pattern with what she eats or with stress of a cause of her migraines. Pt describes the HAs as a stabbing pain in a headband pattern. Pt's HAs last anywhere from an hour to a 3 hours in duration. Pt has a few cases where she just had to go to bed and sleep off the ISABEL. Pt has nausea associated with the ISABEL. Pt has light sensitivity associated with the ISABEL. Pt takes Tylenol 1000mg po QD prn ISABEL and Excedrine pRN migraines. She has never tried a triptan. warts on left hand: Pt has 2 warts on the heel of her left hand that are small. Pt would like to try cryotherapy pt denies cp/sob/n/v/f/c/isabel Review of Systems See HPI for pertinent [...] (K58.9) 13. Irregular menses (626.4) (N92.6) 14. Knee pain, bilateral (719.46) (M25.561,M25.562) 15. Neuropathy (355.9) (G62.9) 16. Piriformis syndrome (355.0) (G57.00) 17. Restless legs syndrome (333.94) (G25.81) 18. Seborrheic dermatitis (690.10) (L21.9) 19. Vitamin a deficiency (264.9) (E50.9) 20. Vitamin d deficiency (268.9) (E55.9) Past Medical [...] Tablet; TAKE 1 TABLET DAILY DIRECTED; Therapy: 76Scl0037 to (Evaluate:26Jun2016); Last Rx:[id number] Ordered 2. Gabapentin 300 MG Oral Capsule; TAKE 1 CAPSULE 3 TIMES DAILY; Therapy: 26Mar2016 to (Evaluate:09Wvb1142) Requested for: 26Mar2016; Last Rx:26Mar2016 Ordered 3. Gabapentin 300 MG Oral Capsule; take one tab po daily for 1-2 weeks and then may increase to 2 tabs at night; Therapy: 37Drz4613 to (Last Rx:[id number]) Requested for: 87Weo5836 Ordered 4. Montelukast Sodium 10 MG Oral Tablet; TAKE 1 TABLET AT BEDTIME; Therapy: 21Sep2014 to (Last Rx:26Mar2016) Requested for: 26Mar2016 Ordered 5. Naproxen 500 MG Oral Tablet; TAKE 1 TABLET BY MOUTH TWICE DAILY; Therapy: 21Sep2014 to (Evaluate:21Bri1056) Requested for: 81Frf4763; Last Rx:[id number] Ordered 6. Vitamin A 06910 UNIT Oral Capsule; Take 4 capsules (100,000 units) PO QD x3days and then take 2 capsules (50,000 units) PO QD x 14 days for vitamin A deficiency; Therapy: 08Aug2016 to (Last Rx:08Aug2016) Requested for: 08Aug2016 Ordered Allergies 1. Lodine Immunizations Influenza --- Series1: 12Mar2016 Vitals Recorded: 23Nov2016 01:53PM Temperature 97.5 F Heart Rate 87 Respiration 14 Systolic 107 Diastolic 69 O2 Saturation 96 Height 5 ft 1 in Weight 196 lb BMI Calculated 37.03 BSA Calculated 1.87 Physical Exam Constitutional General appearance: No acute [...] rhythm, normal S1 and S2, without murmurs. Abdomen Abdomen: Non-tender, no masses. Liver and spleen: No hepatomegaly or splenomegaly. Lymphatic Palpation of lymph nodes in neck: No lymphadenopathy. Musculoskeletal Gait and station: Normal. Skin Skin and subcutaneous tissue: Abnormal. two small warts on the palm of her left hand. Psychiatric Orientation to person, place, and time: Normal. Mood and affect: Abnormal. Mood and Affect: appropriate mood, appropriate affect and in pain. Procedure Cryotherapy Indication: Destruction of two warts Location: palm of left hand Verbal informed consent obtained, and specifically we discussed the risks of bleeding, infection, pain, and the need for repeat procedure(s) if lesion fails to resolve. Patient understands and consents to procedure. In usual fashion, both lesions were frozen with liquid nitrogen with 1mm border andallowed to thaw for 1 minute before being refrozen with again a 1 mm border. Three freezing cycles were performed. Wound care instructions and signs of infection provided. No complications and patient tolerated procedure well. Eval in 2 weeks, to monitor progress or repeat cryotherapy. Counseling The patient was counseled regarding instructions for management, patient and family education and importance of compliance with treatment. Assessment 1. Migraine headache (346.90) (G43.909) 2. Cutaneous wart (078.10) (B07.9) Plan Migraine headache 1. Imitrex 25 MG Oral Tablet (SUMAtriptan Succinate); TAKE 1 TAB PO X1 FOR MIGRAINE HEADACHE RELIEF. MAY REPEAT DOSE x1 AFTER 2 HOURS NEEDED. MAX 200MG/24hours. No more than 8 tabs per day Rx By: Mimi Carrillo; Dispense: 0 Days ; #:1 X 9 Tablet Box; Refill: 1; For: Migraine headache; EDWARD= N; Verified Transmission to [facility] [id number]; Last Updated By: KevinSix Apart; 11/23/2016 2:14:40 PM Formulary Override Reason: No Formulary Equivalent Exists Discussion/Summary 1) migraines: chronic condition. Pt has had them off and on for years, but worsening over the last few months. pt reports she is unable to see a pattern with what she eats or with stress of a cause of her migraines. Pt describes the HAs as a stabbing pain in a headband pattern. Pt's HAs last anywhere from an hour to a 3 hours in duration. Pt has a few cases where she just had to go to bed and sleep off the ISABEL. Pt has nausea associated with the ISABEL. Pt has light sensitivity associated with the ISABEL. Pt takes Tylenol 1000mg po QD prn ISABEL and Excedrine pRN migraines. She has never tried a triptan. -prescribed Imitrex 25mg po -f/u in 1mo to assess the effectiveness of this regimen 2) warts on left hand: Pt has 2 warts on the heel of her left hand that are small. Pt would like to try cryotherapy -cryotherapy performed on both warts as per procedure note above pt tolerated the procedure well Signatures Electronically signed by : Mimi Carrillo M.D.; Nov 27 2016 7:56PM HOT REPAIRMAN (Author) documented in this encounter Plan of Treatment Not on file documented as of this encounter Visit Diagnoses Not on filedocumented in this encounter Care Teams Bondactor Machine Operator Relationship Specialty Start Date End Date [place] [address] PCP - General 08/06/16 07/23/18 documented as of this encounter
--- OUTSIDE RECORDS SUMMARY | 2024-05-29 15:44 | XMS_ITS | Encounter Summary ---
Author Organization [facility] Address [facility]. [place], [place] [address] [place] [address] Care Team Providers Care Rougher Helper Name Role Phone Tony Lang MD Primary Care Provider [phone] Tony Lang MD Primary Care Provider [phone] Tony Lang MD Primary Care Provider [phone] Mimi Carrillo MD Primary Care Provider [phone] Tony Lang MD Primary Care Provider [phone] Jeff Hester MD Primary Care Provider Unavailable Tony Lang MD Primary Care Provider [phone] Encounter Details Date Type Department Care Team (Late st Contact Info) Description 03/12/[address] 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 Gender Identity Not on file Sexual Orientation Not on file documented as of this encounter Plan of Treatment Not on file documented as of this encounter Procedures Procedure Name Priority Date/Time Associated Diagnosis Comments CBC W/DIFF AUTOMATED Routine 03/12/2016 9:05 AM CDT documented in this encounter Results * (ABNORMAL) CBC W/DIFF AUTOMATED (03/12/2016 9:05 AM CDT) WBC 8.1 4.8 - 10.8 X10'3/uL 03/13/2016 10:30 AM CDT [facility] RBC 4.43 4.20 - 5.40 X10'6/uL 03/13/2016 10:30 AM CDT [facility] HGB 13.8 12.0 - 16.0 g/dL 03/13/2016 10:30 AM CDT [facility] HCT 41.0 38.0 - 48.0 % 03/13/2016 10:30 AM CDT [facility] MCV 92.6 81.0 - 99.0 fL 03/13/2016 10:30 AM T [facility] MCH 31.2(H) 27.0 - 31.0 pg 03/13/2016 10:30 AM T [facility] MCHC 33.7 32.0 - 36.0 g/dL 03/13/2016 10:30 AM CDT [facility] RDW 13.2 11.5 - 14.5 % 03/13/2016 10:30 AM T [facility] PLT 238 130 - 400 X10'3/uL 03/13/2016 10:30 AM [facility] MPV 11.7 9.3 - 12.2 fL 03/13/2016 10:30 AM T [facility] DIFFERENTIAL TYPE AUTOMATED 03/13/2016 10:30 AM T [facility] NEUTROPHILS % 63.1 43.0 - 65.0 % 03/13/2016 10:30 AM CDT [facility] LYMPHOCYTES % 28.2 20.0 - 46.0 % 03/13/2016 10:30 AM [facility] MONOCYTES % 2.8(L) 5.0 - 12.0 % 03/13/2016 10:30 AM CDT [facility] EOSINOPHILS 5.3(H) 1.0 - 3.0 % 03/13/2016 10:30 AM CDT [facility] BASOPHILS 0.5 0.0 - 1.0 % 03/13/2016 10:30 AM CDT [facility] IMMATURE GRANS % 0.1 0.0 - 1.0 % 03/13/2016 10:30 AM CDT [facility] 03/12/2016 9:05 AM CDT 03/13/2016 9:55 AM CDT us Generic Conversion [facility] Final R esult [facility] [address] [id number], documented in this encounter Visit Diagnoses Diagnosis Other specified abnormal uterine and vaginal bleeding documented in this encounter Care Teams Rougher Helper Relationship Specialty Start Date End Date Tony Lang MD [address] [place], [place] [address] PCP - General 08/06/16 07/23/18 [place] [address] PCP - General 07/30/16 08/05/16 [place] [address] PCP - General 07/05/16 07/29/16 Mimi Carrillo MD [place], [place] [address] PCP - General 07/04/16 07/04/16 Tony Lang MD [address] [place] [address] PCP - General 03/26/16 07/03/16 Jeff Hester MD PCP - General 03/21/1603/25 Tony Lang MD [address] [place] [address] PCP - General 03/12/16 03/20/16 documented as of this encounter
--- OUTSIDE RECORDS SUMMARY | 2024-05-29 15:44 | XMS_ITS | Encounter Summary ---
Author Organization [facility] Address [facility]. [place], [place] [address] [place] [address] Care Team Providers Care Director Of Litigation Name Role Phone Tony Lang MD Primary Care Provider Tony Lang MD Primary Care Provider Tony Lang MD Primary Care Provider Mimi Carrillo MD Primary Care Provider Tony Lang MD Primary Care Provider Jeff Sanford MD Primary Care Provider Unavailable Tony Lang MD Primary Care Provider Tony Lang MD Primary Care Provider Tony Lang MD Primary Care Provider Tony Lang MD Primary Care Provider Tony Lang MD Primary Care Provider Tony Lang MD Primary Care Provider Tony Lang MD Primary Care Provider Tony Lang MD Primary Care Provider Tony Lang MD Primary Care Provider Encounter Details Date Type Department Care Team (Late st Contact Info) Description 02/18/2014 Abstract [facility] Family Medicine - [address] [phone] Tony Lang MD [address] [place] [address] Social History Tobacco Use Types Packs/Day Years Used Date Smoking Tobacco: Never Assessed Comments Unknown Sex and Gender Information Value Date Recorded Sex Assigned at Not on file Legal Sex 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 Gender Identity Not on file Sexual Orientation Not on file documented as of this encounter Last Filed Vital Signs Vital Sign Reading Time Taken Comments Blood Pressure 132/82 02/18/2014 10:09 AM CDT Pulse 71 02/18/2014 10:09 AM CDT Temperature - - Respiratory Rate - - Oxygen Saturation - - Inhaled Oxygen Concentration - - Weight 87.5 kg (193 lb) 02/18/2014 10:09 AM CDT Height 154.9 cm (5' 1 ) 02/18/2014 10:09 AM CDT Body Mass Index 36.47 02/18/2014 10:09 AM CDT documented in this encounter Progress Notes * Tony Lang MD - 02/18/2014 10:30 AM CDT Reason For Visit Reason For Visit: New Patient Visit Chief Complaint 1. Abdominal Pain Chief Complaint Free Text: Patient is here to establish care, and c/o abdominal/pelvic pain onset 2 days ago. She also c/o amenorrhea. She thinks she may be , even though she had a tubal ligation. History of Present Illness HPI Free Text: Pt with two day hx of rt lower quadrant sharp stabbing pain. Worse with reaching and movements. No changes in bowel pattern. No blood in stool. No vaginal bleeding, or discharge. Recently had a baby (SANTO) 2months ago. 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 Csection (3rd one). Has 14 y/o and 5 y/o. No other surgeries. Pt without menses since delivery. Started sexually activity again a couple weeks ago. Had tubal at time of csectoin. No fever. No n/v/d. no constipation. Pt did have some problem anorexia and nausea with food 2 weekspost ..improved now. Abdominal Pain: Silke Read presents with complaints of abdominal pain. Associated symptoms include diarrhea, missed menstrual period and flatulence. Review of Systems Complete-Female: Constitutional: negative. Head and Face: negative. Eyes: negative. ENT: negative. Cardiovascular: negative. Respiratory: negative. Gastrointestinal: as noted in HPI, IBS and abdominal pain, but no nausea, no constipation, no vomiting, no bright red blood per rectum and no diarrhea. Genitourinary: as noted in HPI, but no urinary frequency, no urinary urgency and no flank pain. Integumentary negative. Breasts Negative. Neurological Negative. Psychiatric: negative. Endocrine Negative. Hematologic and Lymphatic: negative. Active Problems 1. Abdominal pain (789.00) (R10.9) 2. Amenorrhea (626.0) (N91.2) 3. Body odor (705.89) (L74.8) 4. Fibromyalgia (729.1) (M79.7) Past Medical History 1. Abdominal pain (789.00) (R10.9) 2. Body odor (705.89) (L74.8) 3. Fibromyalgia (729.1) (M79.7) 4. History of HELLP syndrome (642.50) (O14.20) 5. History of fracture of finger (V15.51) (Z87.81) Surgical History 1. History of Section 2. [...] History ?? Current every day smoker (305.1) (Z72.0) ?? Food, clothing ?? Occasional alcohol use Current Meds 1. No Reported Medications Recorded EDWARD = N; Record; Last Updated By: Adilene Ortega; 02/18/2014 10:19:53 AM Allergies 1. Lodine Recorded By: Adilene Ortega; 02/18/2014 10:18:29 AM Vitals Vital Signs [Data Includes: Current Encounter] Recorded by : Adilene Ortega at 18Feb2014 10:09AM Temperature 98.4 F Heart Rate 71 Respiration 16 Systolic 132 Diastolic 82 O2 Saturation 98 Height 5 ft 1 in Weight 193 lb BMI Calculated 36.47 BSA Calculated 1.86 Physical Exam Constitutional: awake, alert, no acute distress. Head: head normal, no maxillary sinus tenderness. Eyes: PERRL, normal conjunctiva. Mouth: mucosa moist, normal oropharynx. Neck: no adenopathy, thyroid not enlarged, no thyroid nodules. Cardiovascular: RRR, normal S1/S2, no murmurs, no gallops. Respiratory: CTAB, no wheezing, no rhonchi, no crackles/rhales. Abdomen: Abdomen: The abdomen was flat. Bowel sounds were normal. The abdomen was normal to percussion. There was tenderness in the right lower quadrant. The abdomen was not firm, not rigid, no rebound and no guarding. There was a negative Shirley's sign, a negative obturator sign and a negative psoas sign. No masses were palpated. No hepatosplenomegaly noted. No CVA tenderness. Extremities: gait normal, normal movement of extremities. Results/Data 1 WEEKS Results *Urine Test In Office 18Feb2014 11:09AM Tony Lang Test Name Result Flag Reference Upreg Negative *Urine Dip Siemens Manual Read Strip In Office 18Feb2014 11:08AM Tony Lang Test Name Result Flag Reference Appearance Clear Color Yellow Specific Media 1.025 1.02 - 1.03 Leukocyte Esterase Negative Nitrite Negative pH 6.0 5.0 - 7.0 Proteinp Negative Glucose Negative Ketones Negative Blood Negative Bilirubin Negative Urobilinogen 0.2 E.U./dL Assessment 1. Abdominal pain (789.00) (R10.9) Abd pain - 2-3 days only sharp / crampy in nature and related to position. NO systemic signs and novaginal sx. UA and HCG negative today. Suspect pain related to scar or mild enteritis Supportive care. Precautions given when to return to clinic. f/u prn. Plan Abdominal pain 1. You may slowly resume your normal level of activity once you feel better. Status: Complete Done: 18Feb2014 Ordered; For: Abdominal pain; Ordered By: Tony Lang 2. Call if: The symptoms are not better in 7 days. Status: Complete Done: [id number] Ordered; For: Abdominal pain; Ordered By: Tony Lang 3. Call if: The symptoms seem worse. Status: Complete Done: [id number] Ordered; For: Abdominal pain; Ordered By: Tony Lang 4. Call if: Your bowel movements become loose or watery. Status: Complete Done: [id number] Ordered; For: Abdominal pain; Ordered By: Tony Lang 5. Call 911 if: You are vomiting any blood or material that looks black, or like coffee grounds. Status: Complete Done: [id number] Ordered; For: Abdominal pain; Ordered By: Tony Lang 6. Seek Immediate Medical Attention if: The symptoms are suddenly worse. Status: Complete Done: [id number] Ordered; For: Abdominal pain; Ordered By: Tony Lang 7. Seek Immediate Medical Attention if: You become dizzy or lightheaded, especially when you stand up after sitting for a while. Status: Complete Done: [id number] Ordered; For: Abdominal pain; Ordered By: Tony Lang 8. Seek Immediate Medical Attention if: You see any blood in the stool. Status: Complete Done: [id number] Ordered; For: Abdominal pain; Ordered By: Tony Lang 9. Seek Immediate Medical Attention if: You start vomiting. Status: Complete Done: [id number] Ordered; For: Abdominal pain; Ordered By: Tony Lang 10. Seek Immediate Medical Attention if: Your abdomen is getting large and round and you are not eating more than usual. Status: Complete Done: [id number] Ordered; For: Abdominal pain; Ordered By: Tony Lang 11. Seek Immediate Medical Attention if: Your abdominal pain is worse. Status: Complete Done: [id number] Ordered; For: Abdominal pain; Ordered By: Tony Lang 12. Seek Immediate Medical Attention if: Your temperature is greater than 103F. Status: Complete Done: [id number] Ordered; For: Abdominal pain; Ordered By: Tony Lang 13. *Urine Dip Siemens Manual Read Strip In Office Status: Resulted - Requires Verification Done: 18Feb2014 11:08AM Performed: In Office Due: 20Mar2014; Last Updated By: Arias Varela; 02/18/2014 11:09:16 AM; Ordered;For: Abdominal pain; Ordered By: Tony Lang 14. QU-HCG, QL, URINE 396 Status: Canceled - Manual Activation Perform: [facility] Due: 20Mar2014; Last Updated By: Arias Varela; 02/18/2014 11:09:44 AM; Ordered; For: Abdominal pain; Ordered By: Tony Lang Amenorrhea 15. *Urine Test In Office Status: Resulted - Requires Verification Done: 18Feb2014 11:09AM Performed: In Office Due: 20Mar2014; Last Updated By: Arias Varela; 02/18/2014 11:09:58 AM; Ordered;For: Amenorrhea; Ordered By: Tony Lang Signatures Electronically signed by : Tony Lang M.D.; Feb 18 2014 12:35PM CAR ICER (Author) documented in this encounter Plan of Treatment Not on file documented as of this encounter Procedures Procedure Name Priority Date/Time Associated Diagnosis Comments TEST URINE Routine 02/18/2014 11:09 AM CDT URINALYSIS AUTO DIP Routine 02/18/2014 1 1:08 AM CDT documented in this encounter Results * TEST URINE (02/18/2014 11:09 AM CDT) PREG TEST Negative [facility] T O EPIC CONVERSION 02/18/2014 11:0 9 AM CDT 02/18/2014 11:09 AM CDT Narrative [facility] TO EPIC CONVERSION - 02/18/2014 11:09 AM CDT Result Communication: No patient communication needed at this time us Tony Lang MD URINE ORDERABLES Final Result [facility] TO EPIC CONVERSION * URINALYSIS AUTO DIP (02/18/2014 11:08 AM CDT) APPEARANCE SEMEN Clear [facility] TO EPIC CONVERSION COLOR (U) Yellow [facility] T O EPIC CONVERSION SPECIFIC GRAVITY (U) 1.025 1.02 - 1.03 [facility] TO EPIC CONVERSION LEUKOCYTES (U) Negative [facility] OUP TO EPIC CONVERSION NITRITES Negative [facility] T O EPIC CONVERSION PH (U) 6.0 5.0 - 7.0 [facility] T O EPIC CONVERSION PROTEIN (ELP) (U) Negative [facility] TO EPIC CONVERSION GLUCOSE Negative [facility] T O EPIC CONVERSION KETONE (U) Negative [facility] TO EPIC CONVERSION BLOOD (U) Negative [facility] T O EPIC CONVERSION BILIRUBIN (U) Negative [facility] UP TO EPIC CONVERSION UROBILINOGEN 0.2 E.U./dL [facility] OUP TO EPIC CONVERSION 02/18/2014 11:0 8 AM CDT 02/18/2014 11:08 AM CDT Narrative [facility] TO EPIC CONVERSION - 02/18/2014 11:08 AM CDT Result Communication: No patient communication needed at this time Tony Lang MD URINE ORDERABLES Final Result [facility] TO EPIC CONVERSION documented in this encounter Visit Diagnoses Not on filedocumented in this encounter Care Teams Director Of Litigation Relationship Specialty Start Date End Date Tony Lang MD [place], [place] [id number] PCP - General 08/06/16 07/23/18 [place] [address] PCP - General 07/30/16 08/05/16 [place] [address] PCP - General 07/05/16 07/29/16 [place] [address] PCP - General 07/04/16 07/04/16 Tony Lang MD [address] [place] [address] PCP - General 03/26/16 07/03/16 Jeff Sanford MD PCP - General 03/21/1603/25 Tony Lang MD [address] [place] [address] PCP - General 03/12/16 03/20/16 Tony Lang MD [address] [place] [address] PCP - General 08/29/15 03/11/16 Tony Lang MD [address] [place] [address] PCP - General 06/02/15 08/28/15 Tony Lang MD [address] [place] [address] PCP - General 01/13/15 06/01/15 Tony Lang MD [address] [place] [address] PCP - General 01/11/15 01/12/15 Tony Lang MD [address] [place] [address] PCP - General 01/06/15 01/10/15 Tony Lang MD [address] [place] [address] PCP - General 01/04/15 01/05/15 Tony Lang MD [address] [place] [address] PCP - General 12/30/14 01/03/15 Tony Lang MD [address] [place] [address] PCP - General 12/28/14 12/29/14 documented as of this encounter
--- OUTSIDE RECORDS SUMMARY | 2024-05-29 15:44 | XMS_ITS | Encounter Summary ---
Author Organization [facility] Address [facility]. 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 Gender Identity Not on file Sexual Orientation Not on file documented as of this encounter Plan of Treatment Not on file documented as of this encounter Visit Diagnoses Not on filedocumented in this encounter Care Teams Head Start Teacher Relationship Specialty Start Date End Date Tony [place] [address] PCP - General 08/06/16 07/23/18 Tony Lang MD [address] [place], [place] [id number] PCP - General 07/30/16 08/05/16 Tony Lang MD [address] [place] [address] PCP - General 07/05/16 07/29/16 Mimi Carrillo MD [address] [place], [place] 9[address]109 PCP - General 07/04/16 07/04/16 Tony Lang MD [address], [place] [address] PCP - General 03/26/16 07/03/16 Jeff Sanford MD PCP - General 03/21/1603/25 Tony Lang MD [address] [place], [place] 6[address]999 PCP - General 03/12/16 03/20/16 Tony Lang MD [address] [place] [address] PCP - General 08/29/15 03/11/16 Tony Lang MD [address] [place], [place] 587809 PCP - General 06/02/15 08/28/15 Tony Lang MD [address] [place], [place] 253389 PCP - General 01/13/15 06/01/15 documented as of this encounter
--- OUTSIDE RECORDS SUMMARY | 2024-05-29 15:44 | XMS_ITS | Encounter Summary ---
Author Organization [facility] Address [facility]. [place], [place] [address] [place] [address] Care Team Providers Care Laundry Machine Tender Name Role Phone Tony Lang MD Primary [...] Department Care Team (Latest Contact Info) Description 03/17/[address] 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 Gender Identity Not on file Sexual Orientation Not on file documented as of this encounter Plan of Treatment Not on file documented as of this encounter Visit Diagnoses Not on filedocumented in this encounter Care Teams Laundry Machine Tender Relationship Specialty Start Date End Date Tony [place] [address] PCP - General 08/06/16 07/23/18 Tony Lang MD [address] [place], [place] [address]359 PCP - General 07/30/16 08/05/16 Tony Lang MD [address] [place] [address] PCP - General 07/05/16 07/29/16 Mimi Carrillo MD [address] [place], [place] 471239 PCP - General 07/04/16 07/04/16 Tony Lang MD [address], [place] [address] PCP - General 03/26/16 07/03/16 Jeff Sanford MD PCP - General 03/21/1603/25 Tony Lang MD [address] [place], [place] 385739 PCP - General 03/12/16 03/20/16 Tony Lang MD [address] [place] [address] PCP - General 08/29/15 03/11/16 Tony Lang MD [address] [place], [place] [address]1689 PCP - General 06/02/15 08/28/15 Tony Lang MD [address] [place], [place] [address]479[address] PCP - General 01/13/15 06/01/15 documented as of this encounter
--- OUTSIDE RECORDS SUMMARY | 2024-05-29 15:44 | XMS_ITS | Encounter Summary ---
Author Organization [facility] Address [facility]6 [facility]. [place], [place] [address] [place] [address] Care Team Providers Care Software Packager Name Role Phone Tony Lang MD Primary Care Provider [phone] Tony Lang MD Primary Care Provider [phone] Tony Lang MD Primary Care Provider [phone] Mimi Carrillo MD Primary Care Provider [phone] Tony Lang MD Primary Care Provider [phone] Jeff Sanford MD Primary Care Provider Unavailable Tony Lang MD Primary Care Provider [phone] Encounter Details Date Type Department Care Team (Latest Contact Info) Description 03/15/2016 Abstract [facility] Medical Group Social History Tobacco Use Types Packs/Day Years Used Date Smoking Tobacco: Never Assessed Comments Unknown Sex and Gender Information Value Date Recorded Sex Assigned at Not on file 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 This is good news! I do recommend that you keep your ENGINEERING ASSISTANT appointment for further workup of your irregular bleeding. If you have any questions/concerns, please contact the office at [phone]. Have a blessed day, ~Dr Carrillo Verified Results CBC W Differential 12Mar2016 09:05AM Mimi Carrillo Test Name Result Flag Reference WBC 8.1 X10'3/uL 4.8-10.8 RBC 4.43 X10'6/uL 4.20-5.40 Hemoglobin (HGB) 13.8 g/dL 12.0-16.0 Hematocrit (HCT) 41.0 % 38.0-48.0 Mean Corpuscular Volume (MCV) 92.6 fL 81.0-99.0 Mean Corpuscular Hgb (MCH) 31.2 pg H 27.0-31.0 Mean Corpuscular Hgb Conc (MCH 33.7 g/dL 32.0-36.0 RDW 13.2 % 11.5-14.5 PLATELET COUNT 238 X10'3/uL 130-400 Mean Platelet Volume (MPV) 11.7 fL 9.3-12.2 Differential Type AUTOMATED NEUTROPHILS 63.1 % 43.0-65.0 Lymphocytes % (Auto) 28.2 % 20.0-46.0 MONOCYTES 2.8 % L 5.0-12.0 Eosinophils % (Auto) 5.3 % H 1.0-3.0 Basophils % (Auto) 0.5 % 0.0-1.0 IMMATURE GRANULOCYTES 0.1 % 0.0-1.0 documented in this encounter Plan of Treatment Not on file documented as of this encounter Visit Diagnoses Not on filedocumented in this encounter Care Teams Software Packager Relationship Specialty Start Date End Date Tony Lang MD [address] [place] [id number] PCP - General 08/06/16 07/23/18 Tony Lang MD [address] [place] 127369 PCP - General 07/30/16 08/05/16 Tony Lang MD [place] 875509 PCP - General 07/05/16 07/29/16 Mimi Carrillo MD [address] [place] [address] PCP - General 07/04/16 07/04/16 Tony Lang MD [address] [place] [address] PCP - General 03/26/16 07/03/16 Jeff Sanford MD PCP - General 03/21/1603/25 Tony Lang MD [address] [place] [address] PCP - General 03/12/16 03/20/16 documented as of this encounter
--- OUTSIDE RECORDS SUMMARY | 2024-05-29 15:44 | XMS_ITS | Encounter Summary ---
Author Organization [facility] Address [address] [place] [address]. [place], [place] [id number] [place] [address] Care Team Providers Care Cherry Pitter Name Role Phone Tony Lang MD Primary Care Provider Tony Lang MD Primary Care Provider Tony Lang MD Primary Care Provider Mimi Carrillo MD Primary Care Provider [phone] Tony Lang MD Primary Care Provider Jeff Sanford MD Primary Care Provider Unavailable Tony Lang MD Primary Care Provider Tony Lang MD Primary Care Provider Encounter Details Date Type Department Care Team (Late st Contact Info) Description 12/29/[address] 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 Gender Identity Not on file Sexual Orientation Not on file documented as of this encounter Last Filed Vital Signs Vital Sign Reading Time Taken Comments Blood Pressure 130/80 12/29/2015 1:14 PM CDT Pulse 89 12/29/2015 1:14 PM CDT Temperature - - Respiratory Rate - - Oxygen Saturation - - Inhaled Oxygen Concentration - - Weight 86.6 kg (191 lb) 12/29/2015 1:14 PM CDT Height 154.9 cm (5' 1 ) 12/29/2015 1:14 PM CDT Body Mass Index 36.09 12/29/2015 1:14 PM CDT documented in this encounter Progress Notes * Tony Lang MD - 12/29/2015 1:30 PM CDT Reason For Visit Chronic Recheck Visit Chief Complaint Back pain. History of Present Illness HPI Free Text: Back pain. patient here for followup on restless leg syndrome. Also with 2-3 day history of significant middleupper back focal musculoskeletal pain is causing some numbness and aching pain in the left upper middle back region. Restless legs: Patient with persistent symptoms despite [id number]-[id number] use of iron supplementation and vitamin D supplementation. Patient is amenable to medication trial at this time. Patient currently taking 5000-10,000 units of vitamin D daily stopped taking iron tablets about a month ago. Upper back pain: Patient denies any traumatic episodes. Pain worse with lifting and use of the leftarm. No respiratory symptoms. No radiation down the arm or into the neck. Patient using naproxen asneeded for pain symptoms with minimal to moderate relief in symptoms. Review of Systems See HPI for pertinent positives. Constitutional: Normal. ENT: normal. Cardiovascular: Normal. Respiratory: Normal. Gastrointestinal: Normal. Genitourinary: Normal. Integumentary: Normal. Musculoskeletal: mid back pain. Neurological: Normal. Psychiatric: Normal. Active Problems 1. Allergic rhinitis (477.9) (J30.9) 2. Breast pain (611.71) (N64.4) 3. Carpal tunnel syndrome (354.0) (G56.00) 4. Cough variant asthma (493.82) (J45.991) 5. Fibromyalgia (729.1) (M79.7) 6. IBS (irritable bowel syndrome) (564.1) (K58.9) 7. Irregular menses (626.4) (N92.6) 8. Piriformis syndrome (355.0) (G57.00) 9. Restless legs syndrome (333.94) (G25.81) 10. Seborrheic dermatitis (690.10) (L21.9) 11. Vitamin d deficiency (268.9) (E55.9) Past Medical [...] ?? Occasional alcohol use Current Meds 1. Montelukast Sodium 10 MG Oral Tablet; TAKE 1 TABLET AT BEDTIME; Therapy: 88Mdr6717 to (Last Rx:[id number]) Requested for: 06Pee0102 Ordered 2. Naproxen 500 MG Oral Tablet; TAKE 1 TABLET BY MOUTH TWICE DAILY; Therapy: 13Rwk3785 to (Evaluate:52Pkt9705) Requested for: 16Jqt1721; Last Rx:[id number] Ordered 3. Selenium Sulfide 2.5 % External Lotion; Apply to affected areas and lather with small amount of water. Leave on your skin for 10 minutes. Rinse it off; Therapy: 74Wtp5018 to (Last Rx:[id number]) Requested for: 76Aal6320 Ordered 4. Triamcinolone Acetonide 0.1 % External Ointment; APPLY SPARINGLY TO AFFECTED AREA(S) TWICE DAILY; Therapy: 67Xup9873 to (Last Rx:[id number]) Requested for: 30Jnh6753 Ordered 5. Vitamin D (Ergocalciferol) 11433 UNIT Oral Capsule; TAKE 1 CAPSULE WEEKLY; Therapy: 11Alc8268 to (Last Rx:[id number]) Requested for: 37Zqp9852 Ordered Allergies 1. Isabel Vitals Recorded: 54Kmm8096 01:14PM Temperature 97 F Heart Rate 89 Respiration 18 Systolic 130 Diastolic 80 O2 Saturation 99 Height 5 ft 1 in Weight 191 lb BMI Calculated 36.09 BSA Calculated 1.85 LMP n/a Physical Exam Constitutional: awake, alert, no acute distress. Cardiovascular: RRR, normal S1/S2, no murmurs, no gallops. Respiratory: CTAB, no wheezing, no rhonchi, no crackles/rhales. Neurlogical: cranial nerves intact, normal sensation, normal strength. Thoracic Spine: Palpation/Tenderness: right paraspinal at level Focal area between the heel scapular border and thethoracic spine T8 level very tender to palpation/firm- taut ttender point noted on exam. Palpatory Findings include left-sided muscle spasms. ROM: Full. Strength Testing: Normal . Procedure Procedure: Injection Of Trigger Point(s). Indication: pain and spasm. Risks, benefits and alternatives were discussed with the patient. We discussed possible complications, including infection, bleeding and allergic reaction. Written consent was obtained prior to the procedure. The site was prepped with Alcohol. Locations: Spinal/Paraveterbal Muscle. Procedure Note: The needle size was 25G x 5/8 inch. Anesthesia: mixed with 1.5 cc of 50% dextrose for 3 cc total injection and fanlike distribution around the trigger point on the left upper back The wound was anesthetized with 1.5 ml of lidocaine 1%. Dressing:. a sterile dressing was placed. Patient Status:. the patient tolerated the procedure well. Complications:. there were no complications. Counseling The patient was counseled regarding instructions for management, risk factor reductions and impressions. total time of encounter was 25 minutes and 15 minutes was spent counseling. Assessment 1. Restless legs syndrome (333.94) (G25.81) 2. Acute myofascial pain (729.1,338.19) (M79.1,R52) restless leg syndrome: Advise patient to continue iron therapy one tablet daily 325 mg. Advised herto continue vitamin D 5000 international units daily. Will start trial of gabapentin 300 mg one tablet p.o. q.h.s. May increase to 2 tablets at night if needed after 2 weeks. Followup in 2 months to check on symptoms. Acute myofascial pain in the left upper back/trigger point: Modality application with menthol creammay be useful, massage as well may be useful. Trigger point injection with 25% dextrose prolotherapy today. Followup p.r.n. persistent worsening symptom. May continue to use Naprosyn and/or ice as needed as well Plan Restless legs syndrome 1. Ferrous Sulfate 325 (65 Fe) MG Oral Tablet; TAKE 1 TABLET DAILY DIRECTED Rx By: Tony Lang; Dispense: 90 Days ; #:90 Tablet; Refill: 1; For: Restless legs syndrome; EDWARD= N; Record 2. Gabapentin 300 MG Oral Capsule; take one tab po daily for 1-2 weeks and then may increase to 2 tabs at night Rx By: Tony Lang; Dispense: 0 Days ; #:90 Capsule; Refill: 2; For: Restless legs syndrome; EDWARD= N; Verified Transmission to [facility]; Last Updated By: Zhao Brown; 12/29/2015 1:33:11 PM Vitamin d deficiency 3. 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 (Author) documented in this encounter Plan of Treatment Not on file documented as of this encounter Visit Diagnoses Not on filedocumented in this encounter Care Teams Cherry Pitter Relationship Specialty Start Date End Date Tony Lang MD [address] [place], [place] [address] PCP - General 08/06/16 07/23/18 Tony Lnag MD [address] [place], [place] [address] PCP - General 07/30/16 08/05/16 Tony Lang MD [address] [place], [place] [address] PCP - General 07/05/16 07/29/16 Mimi Carrillo MD [address] [place], [place] [address] PCP - General 07/04/16 07/04/16 Tony Lang MD [address] [place], [place] [address] PCP - General 03/26/16 07/03/16 Jeff Sanford MD PCP - General 03/21/1603/25 Tony Lang MD [address] [place], [place] [address] PCP - General 03/12/16 03/20/16 Tony Lang MD [address] [place], [place] [address] PCP - General 08/29/15 03/11/16 documented as of this encounter
--- OUTSIDE RECORDS SUMMARY | 2024-05-29 15:44 | XMS_ITS | Encounter Summary ---
Author Organization [facility] Address [facility] [place], [place] [address] [place] [address] Care Team Providers Care Supervisor Carpenters Name Role Phone Tony Lang MD Primary Care Provider [phone] Tony Lang MD Primary Care Provider [phone] Tony Lang MD Primary Care Provider Mimi Carrillo MD Primary Care Provider [phone] Tony Lang MD Primary Care Provider Jeff Sanford MD Primary Care Provider Unavailable Encounter Details Date Type Department Care Team (Late st Contact Info) Description 03/21/2016 Abstract [facility] Diagnostic Imaging [address] [place] [address] Md Generic MD Betito Social History Tobacco Use Types Packs/Day Years Used Date Smoking Tobacco: Never Assessed Comments Unknown Sex and Gender Information Value Date Recorded Sex Assigned at Not on file 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 Gender Identity Not on file Sexual Orientation Not on file documented as of this encounter Plan of Treatment Not on file documented as of this encounter Visit Diagnoses Diagnosis Other ovarian cyst, right side documented in this encounter Care Teams Supervisor Carpenters Relationship Specialty Start Date End Date Toyn Lang MD [address] [place] [address] PCP - General 08/06/16 07/23/18 Tony Lang MD [address] [place] [address] PCP - General 07/30/16 08/05/16 Tony Lang MD [address] [place] [address] [place] [address] PCP - General 07/05/16 07/29/16 Mimi Carrillo MD [address] [place] [address] [place] [address] PCP - General 07/04/16 07/04/16 Tony Lang MD [address] [place] [address] [place] [address] PCP - General 03/26/16 07/03/16 Jeff Sanford MD PCP - General 03/21/1603/25 documented as of this encounter
--- OUTSIDE RECORDS SUMMARY | 2024-05-29 15:44 | XMS_ITS | Encounter Summary ---
Author Organization [facility] Address [address] [place] [address]. [place], [place] [address] [place] [address] Care Team Providers Care Draw Bench Operator Name Role Phone Tony Lang MD Primary Care Provider [phone] Tony Lang MD Primary Care Provider [phone] Tony Lang MD Primary Care Provider Mimi Carrillo MD Primary Care Provider [phone] Tony Lang MD Primary Care Provider Jeff Sanford MD Primary Care Provider Unavailable Tony Lang MD Primary Care Provider Tony Lang MD Primary Care Provider Tony Lang MD Primary Care Provider [phone] Tony Lang MD Primary Care Provider Tony Lang MD Primary Care Provider [phone] Tony Lang MD Primary Care Provider Tony Lang MD Primary Care Provider [phone] Tony Lang MD Primary Care Provider [phone] Tony Lang MD Primary Care Provider [phone] Encounter Details Date Type Department Care Team (Latest Contact Info) Description 07/29/2014 Abstract [facility] Social History Tobacco Use Types Packs/Day Years Used Date Smoking Tobacco: Never Assessed Comments Unknown Sex and Gender Information Value Date Recorded Sex Assigned at Not on file 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 Gender Identity Not on file Sexual Orientation Not on file documented as of this encounter Plan of Treatment Not on file documented as of this encounter Visit Diagnoses Not on filedocumented in this encounter Care Teams Draw Bench Operator Relationship Specialty Start Date End Date Tony Lang MD [address] [place] [address] PCP - General 08/06/16 07/23/18 Tony Lang MD [address] [place] [address] PCP - General 07/30/16 08/05/16 Tony Lang MD [address] [place] [address] PCP - General 07/05/16 07/29/16 Mimi Carrillo MD [address] [place] [address] PCP - General 07/04/16 07/04/16 Tony Lang MD [address] [place] [address] PCP - General 03/26/16 07/03/16 Jeff Sanford MD PCP - General 03/21/1603/25 Tony Lang MD [address] [place], [place] 9[address]89 PCP - General 03/12/16 03/20/16 Tony Lang MD [address] [place] [address] PCP - General 08/29/15 03/11/16 Tony Lang MD [address] [place], [place] [address] PCP - General 06/02/15 08/28/15 Tony Lang MD [address] [place] [address] PCP - General 01/13/15 06/01/15 Tony Lang MD [address] [place] [address] PCP - General 01/11/15 01/12/15 Tony Lang MD [address] [place] [address] PCP - General 01/06/15 01/10/15 Tony Lang MD [address] [place] [address] PCP - General 01/04/15 01/05/15 Tony Lang MD [address] [place] [address] PCP - General 12/30/14 01/03/15 Tony Lang MD [address] [place] [address] PCP - General 12/28/14 12/29/14 documented as of this encounter
--- OUTSIDE RECORDS SUMMARY | 2024-05-29 15:44 | XMS_ITS | Encounter Summary ---
Author Organization [facility] Address [facility]. [place], [place] [address] [place] [address] Care Team Providers Care Philosophy And Religion Instructor Name Role Phone Tony Lang MD Primary Care Provider [phone] Tony Lang MD Primary Care Provider [phone] Tony Lang MD Primary Care Provider [phone] Mimi Carrillo MD Primary Care Provider [phone] Tony Lang MD Primary Care Provider [phone] Encounter Details Date Type Department Care Team (Late st Contact Info) Description 03/26/2016 Abstract [facility] [place] [address] Jeff Hester MD Social History Tobacco Use Types Packs/Day Years Used Date Smoking Tobacco: Never Assessed Comments Unknown Sex and Gender Information Value Date Recorded Sex Assigned at Not on file 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 Gender Identity Not on file Sexual Orientation Not on file documented as of this encounter Plan of Treatment Not on file documented as of this encounter Procedures Procedure Name Priority Date/Time Associated Diagnosis Comments TSH W/REFLEX Routine 03/26/2016 9:20 AM CDT documented in this encounter Results * TSH W/REFLEX (SNS) (03/26/2016 9:20 AM CDT) TSH 1.24 0.27 - 4.20 mIU/mL 03/26/2016 8:53 PM CDT [facility] Comment:FREE T4 NOT INDICATE D SERUM OR PLASMA SPECIMEN / Unknown 03/26/2016 9:20 AM CDT 03/26/2016 8:05 PM CDT us Generic Conversion Md [facility] Final R esult [facility] [address] [place] [address], documented in this encounter Visit Diagnoses Diagnosis Hypothyroidism Unspecified hypothyroidism documented in this encounter Care Teams Philosophy And Religion Instructor Relationship Specialty Start Date End Date Tony Lang MD [address] [place] [address] PCP - General 08/06/16 07/23/18 Tony Lang MD [address] [place] [address] PCP - General 07/30/16 08/05/16 Tony Lang MD [address] [place] [address] PCP - General 07/05/16 07/29/16 Mimi Carrillo MD [address] [place] [address] PCP - General 07/04/16 07/04/16 Tony Lang MD [address] [place] [address] PCP - General 03/26/16 07/03/16 documented as of this encounter
--- OUTSIDE RECORDS SUMMARY | 2024-05-29 15:44 | XMS_ITS | Encounter Summary ---
Author Organization [facility] Address [facility]. [place], [place] [address] [place] [address] Care Team Providers Care Conference Producer Name Role Phone Tony Lang MD Primary Care Provider Tony Lang MD Primary Care Provider Tony Lang MD Primary Care Provider Mimi Carrillo MD Primary Care Provider Tony aLng MD Primary Care Provider Jeff Sanford MD Primary Care Provider Unavailable Tony Lang MD Primary Care Provider Tony Lang MD Primary Care Provider Tony Lang MD Primary Care Provider Tony Lang MD Primary Care Provider Encounter Details Date Type Department Care Team (Late st Contact Info) Description 01/13/2015 Abstract [facility] Physical Therapy [address] [place], [place] [id number] Tony Lang MD [address] [place] [address] Social History Tobacco Use Types Packs/Day Years Used Date Smoking Tobacco: Never Assessed Comments Unknown Sex and Gender Information Value Date Recorded Sex Assigned at Not on file 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 Gender Identity Not on file Sexual Orientation Not on file documented as of this encounter Plan of Treatment Not on file documented as of this encounter Visit Diagnoses Diagnosis Encounter for other physical therapy documented in this encounter Care Teams Conference Producer Relationship Specialty Start Date End Date Tony Lang MD [address] [place] [address] PCP - General 08/06/16 07/23/18 Tony Lang MD [address] [place] [address] PCP - General 07/30/16 08/05/16 Tony Lang MD [address] [place] [address] PCP - General 07/05/16 07/29/16 Mimi Carrillo MD [address] [place] [address] PCP - General 07/04/16 07/04/16 Tony Lang MD [address] [place] [address] PCP - General 03/26/16 07/03/16 Jeff Sanford MD PCP - General 03/21/1603/25 Tony Lang MD [address] [place] [address] PCP - General 03/12/16 03/20/16 Tony Lang MD [address] [place] [address] PCP - General 08/29/15 03/11/16 Tony Lang MD [address] [place] [address] PCP - General 06/02/15 08/28/15 Tony Lang MD [address] [place] [address] PCP - General 01/13/15 06/01/15 documented as of this encounter
--- OUTSIDE RECORDS SUMMARY | 2024-05-29 15:44 | XMS_ITS | Encounter Summary ---
Author Organization [facility] Address [facility] [place]. 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 Gender Identity Not on file Sexual Orientation Not on file documented as of this encounter Last Filed Vital Signs Vital Sign Reading Time Taken Comments Blood Pressure 110/73 09/21/2014 9:14 AM CDT Pulse 90 09/21/2014 9:14 AM CDT Temperature - - Respiratory Rate - - Oxygen Saturation - - Inhaled Oxygen Concentration - - Weight 87.5 kg (193 lb) 09/21/2014 9:14 AM CDT Height 154.9 cm (5' 1 ) 09/21/2014 9:14 AM CDT Body Mass Index 36.47 09/21/2014 9:14 AM CDT documented in this encounter Progress Notes * Tony Lang MD - 09/21/2014 9:30 AM CDT Reason For Visit Reason For Visit: Acute Visit Chief Complaint Patient c/o cold symptoms onset 1 week ago. History of Present Illness Patient presents for cold symptoms onset 1 week ago. C/O difficulty with her asthma also. C.O naslacongestion,SOB,and sinus pressure, and cough. OTC meds are not helping. . c/o sinus congestion, and recently having more choking and coughing as well. Woke up one night choking and wheezing - self extinguished without therapyNo fever. Sx going on about a week now. Using mucinex sinus max OTC which helped for a few days. Sinus sx seem worse with pollen in air (has seasonal allergy sx) Continues to smoke 1/3 ppd. Hx of 'exercise induced' asthma dx when she was in high school...used inhalers briefly but hasn't for several years now. Reports 2-3 yr hx now of intermittent 'closing off' or choking sensation in throat at rest or sometimes with eating. Resolves within minutes. Not associated with wheezing. Concerned for possible allergy or thyroid issue although no rash, urticaria, wheezing. Also c/o eyebrow rash as well for several months Review of Systems See HPI for pertinent positives. Constitutional: Normal. ENT: congestion. Cardiovascular: Normal. Respiratory: cough. Gastrointestinal: Normal. Genitourinary: Normal. Integumentary: Normal. Musculoskeletal: Normal. Neurological: Normal. Psychiatric: Normal. Active Problems 1. Abdominal pain (789.00) (R10.9) 2. Amenorrhea (626.0) (N91.2) 3. Carpal tunnel syndrome (354.0) (G56.00) 4. Fibromyalgia (729.1) (M79.7) 5. IBS (irritable bowel syndrome) (564.1) (K58.9) Past Medical History 1. Abdominal pain (789.00) (R10.9) 2. Fibromyalgia (729.1) (M79.7) 3. History of HELLP syndrome (642.50) (O14.20) 4. History of fracture of finger (V15.51) (Z87.81) 5. History of irritable bowel syndrome (V12.79) (Z87.19) Surgical History 1. History of Section 2. [...] ?? Occasional alcohol use Current Meds 1. Naproxen 500 MG Oral Tablet; TAKE 1 TABLET EVERY 12 HOURS NEEDED; Therapy: 09Apr2014 to (Evaluate:09May2014) Requested for: 09Apr2014; Last Rx:09Apr2014 Ordered Rx By: Tony Lang; Dispense: 30 Days ; #:60 Tablet; Refill: 0; For: Carpal tunnel syndrome; EDWARD= N; Verified Transmission to [facility] [id number]; Last Updated By: Zhoa Brown; 04/09/2014 7:31:13 AM Allergies 1. Lodine Recorded By: Adilene Ortega; 02/18/2014 10:18:29 AM Vitals Vital Signs [Data Includes: Current Encounter] Recorded: [id number] 09:14AM Recorded: 75Eta4032 10:09AM Temperature 98 F Heart Rate 90 Respiration 16 Systolic 110 Diastolic 73 O2 Saturation 96 Height 5 ft 1 in Weight 193 lb BMI Calculated 36.47 BSA Calculated 1.86 LMP n/a n/a Physical Exam Head: tender left maxillary sinus, but non-tender right maxillary sinus. Eyes: PERRL, normal conjunctiva. Ears: Ears: The right tympanic membrane was normal, was not red and was not bulging. The left tympanic membrane was normal. Exam of the right middle ear showed a middle ear effusion serous. Nose: clear rhinorrhea. Cardiovascular: RRR, normal S1/S2, no murmurs, no gallops. Respiratory: CTAB, no wheezing, no rhonchi, no crackles/rhales. Assessment 1. Bronchitis (490) (J40) 2. Choking sensation (784.99) (R09.89) 3. Seborrheic dermatitis (690.10) (L21.9) 4. Allergic rhinitis (477.9) (J30.9) Bronchitis / URI - manage supportively. Rest/fluids. Naprosyn and mucinex D to help with cough sx. f/u prn worsening sx. Resp precautions Fredi derm - TAC 1% oint bid for 1 week to decrease redness/inflammation and then transition to selenium application daily for control Allergic rhinnits - OTC antihistamine okay. Trial of singulair as well. f/u one month Choking sensation - Hx sounds like vocal cord dysfunction - and not true asthma or esophagitis/stricture. May consider addition of SSRI/speech path eval/formal pfts is sx become more problematic, persistent. If asthma variant the singulair addition may be beneficial. F/U one month to check on othersx...will revisit this as well. Plan Allergic rhinitis 1. Montelukast Sodium 10 MG Oral Tablet (Singulair); TAKE 1 TABLET AT BEDTIME Rx By: Tony Lang; Dispense: 0 Days ; #:30 Tablet; Refill: 2; For: Allergic rhinitis; EDWARD = N; Sent To: [facility] [address] Bronchitis, Choking sensation, Seborrheic dermatitis 2. Mucinex D 60-600 MG Oral Tablet Extended Release 12 Hour; TAKE 1 TABLET EVERY 12 HOURS Rx By: Tony Lang; Dispense: 10 Days ; #:20 Tablet Extended Release 12 Hour; Refill: 0; For: Bronchitis, Choking sensation, Seborrheic dermatitis; EDWARD = N; Sent To: [facility] [id number] 3. Naproxen 500 MG Oral Tablet (Naprosyn); Take 1 twice daily Rx By: Tony Lang; Dispense: 30 Days ; #:60 Tablet; Refill: 0; For: Bronchitis, Choking sensation, Seborrheic dermatitis; EDWARD = N; Sent To: [email or web address] Seborrheic dermatitis 4. Selenium Sulfide 2.5 % External Lotion; Apply to affected areas and lather with small amount of water. Leave on your skin for 10 minutes. Rinse it off Rx By: Tony Lang; Dispense: 0 Days ; #:120 ML; Refill: 2; For: Seborrheic dermatitis; EDWARD = N;Sent To: [facility] [address] 5. Triamcinolone Acetonide 0.1 % External Ointment; APPLY SPARINGLY TO AFFECTED AREA(S) TWICE DAILY Rx By: Tony Lang; Dispense: 0 Days ; #:1 X 30 GM Tube; Refill: 1; For: Seborrheic dermatitis; EDWARD = N; Sent To: [facility] [address] Signatures Electronically signed by : Tony Lang M.D.; Sep 21 2014 10:03AM CAR BODY INSPECTOR (Author) documented in this encounter Plan of Treatment Not on file documented as of this encounter Visit Diagnoses Not on filedocumented in this encounter Care Teams Medical Information Officer Relationship Specialty Start Date End Date Tony Lang MD [address] [place], [place] [id number] PCP - General 08/06/16 07/23/18 Tony Lang MD [address] [place] [address], [place] [id number] PCP - General 07/30/16 08/05/16 Tony Lang MD [address] [place], [place] [id number] PCP - General 07/05/16 07/29/16 Mimi Carrillo MD [address] [place] [address], [place] [id number] PCP - General 07/04/16 07/04/16 Tony Lang MD [address], [place] [address] PCP - General 03/26/16 07/03/16 Jeff Sanford MD PCP - General 03/21/1603/25 Tony Lang MD [address] [place] [address], [place] [address]24449 PCP - General 03/12/16 03/20/16 Tony Lang MD [address], [place] [id number] PCP - General 08/29/15 03/11/16 Tony Lang MD [address], [place] [id number] PCP - General 06/02/15 08/28/15 Tony Lang MD [address], [place] [id number] PCP - General 01/13/15 06/01/15 Tony Lang MD [address], [place] [address]259 PCP - General 01/11/15 01/12/15 Tony Lang MD [address] [place] [address], [place] [address]3219 PCP - General 01/06/15 01/10/15 Tony Lang MD [address] [place], [place] [address]429 PCP - General 01/04/15 01/05/15 Tony Lang MD [address], [place] [id number] PCP - General 12/30/14 01/03/15 Tony Lang MD [address], [place] 8[address]199 PCP - General 12/28/14 12/29/14 documented as of this encounter
--- OUTSIDE RECORDS SUMMARY | 2024-05-29 15:44 | XMS_ITS | Encounter Summary ---
Author Organization [facility] Address [address] [place] [address]. [place], [place] [id number] [place] [id number] Care Team Providers Care Hospice Rn Name Role Phone Tony Lang MD Primary Care Provider Tony Lang MD Primary Care Provider Tony Lang MD Primary Care Provider Mimi Carrillo MD Primary Care Provider [phone] Tony Lang MD Primary Care Provider Jeff Sanford MD Primary Care Provider Unavailable Tony Lang MD Primary Care Provider Tony Lang MD Primary Care Provider Encounter Details Date Type Department Care Team (Late st Contact Info) Description 09/12/[address] 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 Gender Identity Not on file Sexual Orientation Not on file documented as of this encounter Last Filed Vital Signs Vital Sign Reading Time Taken Comments Blood Pressure 130/70 09/12/2015 9:38 AM CDT Pulse 75 09/12/2015 9:38 AM CDT Temperature - - Respiratory Rate - - Oxygen Saturation - - Inhaled Oxygen Concentration - - Weight 88.9 kg (196 lb) 09/12/2015 9:38 AM CDT Height 154.9 cm (5' 1 ) 09/12/2015 9:38 AM CDT Body Mass Index 37.03 09/12/2015 9:38 AM CDT documented in this encounter Progress Notes * Tony Lang MD - 09/12/2015 9:30 AM CDT Reason For Visit Chronic Recheck Visit Chief Complaint f.u History of Present Illness HPI Free Text: f/u followup on recent lab tests that we fatemeh for evaluation of irregular menses and restless leg syndrome. The patient recently recovering from strep throat as well. Irregular menses x2-3 months now. She is having a period every 2-3 weeks. She is currently not on any control medications as she is a tubal ligation. Restless leg: Patient is noticed less symptoms since starting vitamin D supplementation Strep throat: Patient is near the end of her amoxicillin treatment course she's not having any fever or sore throat at this point feels much improved Review of Systems See HPI for pertinent positives. Constitutional: Normal. ENT: normal. Cardiovascular: Normal. Respiratory: Normal. Gastrointestinal: Normal. Genitourinary: unexplained vaginal bleeding. Integumentary: Normal. Musculoskeletal: Normal. Neurological: Normal. Psychiatric: Normal. Active Problems 1. Allergic rhinitis (477.9) (J30.9) 2. Breast pain (611.71) (N64.4) 3. Carpal tunnel syndrome (354.0) (G56.00) 4. Cough variant asthma (493.82) (J45.991) 5. Fibromyalgia (729.1) (M79.7) 6. IBS (irritable bowel syndrome) (564.1) (K58.9) 7. Irregular menses (626.4) (N92.6) 8. Piriformis syndrome (355.0) (G57.00) 9. Restless legs syndrome (333.94) (G25.81) 10. Right flank pain (789.09) (R10.9) 11. Seborrheic dermatitis (690.10) (L21.9) 12. Strep pharyngitis (034.0) (J02.0) 13. Vitamin d deficiency (268.9) (E55.9) Past Medical [...] Tablet; TAKE 1 TABLET AT BEDTIME; Therapy: [id number] to (Last Rx:[id number]) Requested for: [id number] Ordered 2. Naproxen 500 MG Oral Tablet; TAKE 1 TABLET BY MOUTH TWICE DAILY; Therapy: 21Sep2014 to (Evaluate:38Pzq8357) Requested for: 24Qwq1945; Last Rx:[id number] Ordered 3. Selenium Sulfide 2.5 % External Lotion; Apply to affected areas and lather with small amount of water. Leave on your skin for 10 minutes. Rinse it off; Therapy: 98Cqj5724 to (Last Rx:21Sep2014) Requested for: 21Sep2014 Ordered 4. Sulfamethoxazole-Trimethoprim 800-160 MG Oral Tablet; TAKE 1 TABLET TWICE DAILY; Therapy: 75Fss5968 to (Evaluate:20Dwu7506) Requested for: [id number]; Last Rx:[id number] Ordered 5. Triamcinolone Acetonide 0.1 % External Ointment; APPLY SPARINGLY TO AFFECTED AREA(S) TWICE DAILY; Therapy: 21Sep2014 to (Last Rx:21Sep2014) Requested for: [id number] Ordered 6. Vitamin D (Ergocalciferol) 04595 UNIT Oral Capsule; TAKE 1 CAPSULE WEEKLY; Therapy: 01Sep2015 to (Last Rx:01Sep2015) Requested for: 01Sep2015 Ordered Allergies 1. Isabel Vitals Recorded: 12Sep2015 09:38AM Temperature 98 F Heart Rate 75 Respiration 18 Systolic 130 Diastolic 70 O2 Saturation 98 Height 5 ft 1 in Weight 196 lb BMI Calculated 37.03 BSA Calculated 1.87 LMP 08Sep2015 Physical Exam Constitutional: awake, alert, no acute distress. Mouth: mucosa moist, normal oropharynx. Neck: no adenopathy, thyroid not enlarged, no thyroid nodules. Cardiovascular: RRR, normal S1/S2, no murmurs, no gallops. Respiratory: CTAB, no wheezing, no rhonchi, no crackles/rhales. Neurlogical: cranial nerves intact, normal sensation, normal strength. Results/Data CBC W Differential 29Aug2015 10:11AM Tony Lang Test Name Result Flag Reference White Blood Cell Count (WBC) 9.5 X10'3/uL 4.8-10.8 Red Blood Cell Count (RBC) 4.93 X10'6/uL 4.20-5.40 Hemoglobin (HGB) 14.6 g/dL 12.0-16.0 Hematocrit (HCT) 45.0 % 38.0-48.0 Mean Corpuscular Volume (MCV) 91.3 fL 81.0-99.0 Mean Corpuscular Hgb (MCH) 29.6 pg 27.0-31.0 Mean Corpuscular Hgb Conc (MCH 32.4 g/dL 32.0-36.0 Red Cell Distrib Width (RDW) 13.2 % 11.5-14.5 Platelet Count (PLT) 239 X10'3/uL 130-400 Mean Platelet Volume (MPV) 11.5 fL 9.3-12.2 Differential Type AUTOMATED Neutrophils % (Auto) 61.2 % 43.0-65.0 Lymphocytes % (Auto) 29.1 % 20.0-46.0 Monocytes % (Auto) 5.1 % 5.0-12.0 Eosinophils % (Auto) 3.9 % H 1.0-3.0 Basophils % (Auto) 0.5 % 0.0-1.0 IMMATURE GRANULOCYTES 0.2 % 0.0-1.0 Iron Profile W TIBC 29Aug2015 10:11AM Tony Lang Test Name Result Flag Reference Iron 51 mcg/dL 37-145 Total Iron Binding Capacity 375 mcg/dL 250-450 Percent Iron Saturation 14 % L 20-55 Unsaturated Iron Binding 324 mcg/dL 112-360 TSH W Reflex Free T4 29Aug2015 10:11AM Tony Lang Test Name Result Flag Reference TSH w Reflex Free T4 0.78 mIU/mL 0.27-4.20 FREE T4 NOT INDICATED Vitamin B12 And Folate 29Aug2015 10:11AM Tony Lang Test Name Result Flag Reference Vitamin B12 364 pg/mL 211-946 Folate. 8.8 ng/mL 7.3-26.1 Vitamin D 25 - Hydroxy 29Aug2015 10:11AM Tony Lang Test Name Result Flag Reference Vitamin D 25-Hydroxy 18 NG/ML L 30-100 SUPPLEMENTING WITH VITAMIN D2 MAY RESULT IN FALSELY LOW RESULTS, CLINICAL CORRELATION NEEDED. INTERPRETATION DEFICIENT <20 INSUFFICIENT 20-30 SUFFICIENT 30-100 POTENTIAL INTOXICATION >100 TEST[place] [address] Urinalysis ( UA ) W Microscopic 29Aug2015 10:11AM Tony Lang Test Name Result Flag Reference Specimen Type URINE CLEAN CATCH Urine Color YELLOW Urine Clarity CLOUDY Urine Specific [place] 1.024 1.001-1.030 Urine pH 5.0 5.0-9.0 Urine Leukocyte Esterase NEGATIVE NEG Urine Nitrite NEGATIVE NEG Urine Protein NEGATIVE MG/DL <30 Urine Glucose NEGATIVE MG/DL NEG Urine Ketones (Acetone) NEGATIVE MG/DL NEG Urine Urobilinogen NEGATIVE MG/DL NEG Urine Bilirubin NEGATIVE MG/DL NEG Urine Occult Blood SMALL A NEG Squamous Epithelial MODERATE /LPF Transitional Epithelial RARE /HPF Urine Mucus FEW /LPF Urine WBC <1 /HPF <6 Urine RBC <1 /HPF <6 Calcium Oxalate Crystal RARE /HPF *A1C In Office [id number] 07:50AM Tony Lang Test Name Result Flag Reference A1C 5.2 4.2% - 6.5% Counseling The patient was counseled regarding diagnostic results, instructions for management and impressions. total time of encounter was 25 minutes and 15 minutes was spent counseling. Assessment 1. Irregular menses (626.4) (N92.6) 2. Restless legs syndrome (333.94) (G25.81) 3. Strep pharyngitis (034.0) (J02.0) 4. Vitamin d deficiency (268.9) (E55.9) irregular menses: This is a fairly recent development of the last 2-3 months. I do not see any organic reason i.e. abnormality with thyroid be causing this issue. I did offer the patient oral control pills to help regulate her menses--did not want to pursue that at this point. We agreed to just follow her symptoms clinically and consider further workup and/or treatment if this persists for several months. Restless leg: Only other maladies, lab screening was vitamin D deficiency and mild decrease in ironsaturation. I have ordered vitamin D replacement for patient and she is taking 50,000 units once weekly. I recommended starting multivitamin with iron. We'll follow up on the symptoms about 2-3 months and determine at that point if she wants to pursue medication treatment for restless leg. Vitamin D deficiency: Currently on replacement followup 2-3 months Strep throat resolving with amoxicillin treatment Plan PMH: Acute UTI 1. Sulfamethoxazole-Trimethoprim 800-160 MG Oral Tablet Rx By: Tony Lang; Dispense: 5 Days ; #:10 Tablet; Refill: 0; For: PMH: Acute UTI; EDWARD = N; Sent To: [facility] [id number] Signatures Electronically signed by : Tony Lang M.D.; Sep 12 2015 10:00AM FAMILY SERVICE WORKER (Author) documented in this encounter Plan of Treatment Not on file documented as of this encounter Visit Diagnoses Not on filedocumented in this encounter Care Teams Hospice Rn Relationship Specialty Start Date End Date Tony Lang MD [address] [place], [place] [id number] PCP - General 08/06/16 07/23/18 Toyn Lang MD [address] [place], [place] [address] PCP - General 07/30/16 08/05/16 Tony Lang MD [address], [place] [id number] PCP - General 07/05/16 07/29/16 Mimi Carrillo MD [address] [place] [address] PCP - General 07/04/16 07/04/16 Tony Lang MD [address], [place] [address] PCP - General 03/26/16 07/03/16 Jeff Sanford MD PCP - General 03/21/1603/25 Tony Lang MD [address], [place] [address]259 PCP - General 03/12/16 03/20/16 Tony Lang MD [address], [place] [address] PCP - General 08/29/15 03/11/16 documented as of this encounter
--- OUTSIDE RECORDS SUMMARY | 2024-05-29 15:44 | XMS_ITS | Encounter Summary ---
Author Organization [facility] Address Formerly [facility]. [place], [place] [address] [place] [address] Care Team Providers Care Plodding Operator Name Role Phone Tony Lang MD Primary Care Provider [phone] Tony Lang MD Primary Care Provider [phone] Tony Lang MD Primary Care Provider Mimi Carrillo MD Primary Care Provider [phone] Tony Lang MD Primary Care Provider [phone] Jeff Sanford MD Primary Care Provider Unavailable Tony Lang MD Primary Care Provider [phone] Encounter Details Date Type Department Care Team (Late st Contact Info) Description 03/12/2016 Abstract [facility] [address] [place] [address] Mimi Carrillo MD [address] [place] [address] [id number] Social History Tobacco Use Types Packs/Day Years Used Date Smoking Tobacco: Never Assessed Comments Unknown Sex and Gender Information Value Date Recorded Sex Assigned at Not on file Legal Sex Female 2:59 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 Gender Identity Not on file Sexual Orientation Not on file documented as of this encounter Last Filed Vital Signs Vital Sign Reading Time Taken Comments Blood Pressure 114/80 03/12/2016 8:13 AM CDT Pulse 85 03/12/2016 8:13 AM CDT Temperature - - Respiratory Rate - - Oxygen Saturation - - Inhaled Oxygen Concentration - - Weight 86.2 kg (190 lb) 03/12/2016 8:13 AM CDT Height 154.9 cm (5' 1 ) 03/12/2016 8:13 AM CDT Body Mass Index 35.9 03/12/2016 8:13 AM CDT documented in this encounter Progress Notes * Mimi Carrillo MD - 03/12/2016 8:00 AM CDT Chief Complaint Pt is here to establish care and is concerned about blood clots during menstrual cycle and heaviness in legs at night. History of Present Illness HPI Free Text: OBHx: (1st child was born 8 weeks premature 22 HELLP syndrome) Most recent pap was 1.5yrs ago and wnl per pt report Pt also c/o continued sxs from restless leg syndrome. Pt currently taking Gabapentin 300mg PoQHS. She reports that her legs are less restless, but they now feel heavy. She also states that sometimes during the day she has an intense pain when her pants brush up against her legs. Pt reports her sxs are relieved by naproxen. Pt denies any cp/sob/n/v/f/c/dewey Review of Systems See HPI for pertinent positives. Active Problems 1. Acute myofascial pain (729.1,338.19) (M79.1,R52) 2. Allergic rhinitis (477.9) (J30.9) 3. Breast pain (611.71) (N64.4) 4. Carpal tunnel syndrome (354.0) (G56.00) 5. Cough variant asthma (493.82) (J45.991) 6. Fibromyalgia (729.1) (M79.7) 7. IBS (irritable bowel syndrome) (564.1) (K58.9) 8. Irregular menses (626.4) (N92.6) 9. Piriformis syndrome (355.0) (G57.00) 10. Restless legs syndrome (333.94) (G25.81) 11. Seborrheic dermatitis (690.10) (L21.9) 12. Vitamin d deficiency (268.9) (E55.9) Past Medical [...] Tablet; TAKE 1 TABLET DAILY DIRECTED; Therapy: 84Rqp2371 to (Evaluate:26Jun2016); Last Rx:[id number] Ordered 2. Gabapentin 300 MG Oral Capsule; take one tab po daily for 1-2 weeks and then may increase to 2 tabs at night; Therapy: 27Rkw9164 to (Last Rx:[id number]) Requested for: 03Iin4105 Ordered 3. Montelukast Sodium 10 MG Oral Tablet; TAKE 1 TABLET AT BEDTIME; Therapy: 71Rbo8606 to (Last Rx:[id number]) Requested for: 50Eej6798 Ordered 4. Naproxen 500 MG Oral Tablet; TAKE 1 TABLET BY MOUTH TWICE DAILY; Therapy: 21Sep2014 to (Evaluate:07Tzk0837) Requested for: 24Fon9380; Last Rx:[id number] Ordered Allergies 1[facility] Vitals Recorded: 12Mar2016 08:13AM Temperature 98 F Heart Rate 85 Respiration 16 Systolic 114 Diastolic 80 O2 Saturation 97 Height 5 ft 1 in Weight 190 lb BMI Calculated 35.9 BSA Calculated 1.85 Physical Exam Constitutional General appearance: No acute distress, well appearing and well nourished. grooming unkempt. Eyes Conjunctiva and lids: No swelling, erythema [...] extremities for edema and/or varicosities: Normal. Abdomen soft, non-distended, good bowel sounds appreciated. TTP in LLQ. Liver and spleen: No hepatomegaly or splenomegaly. Lymphatic Palpation of lymph nodes in neck: No lymphadenopathy. Musculoskeletal Gait and station: Normal. strength and sensation remain in tact in b/l LEs. Skin Skin and subcutaneous tissue: Normal without rashes or lesions. Psychiatric Orientation to person, place, and time: Normal. Mood and affect: Normal. Counseling The patient was counseled regarding instructions for management, patient and family education and importance of compliance with treatment. Assessment 1. DUB (dysfunctional uterine bleeding) (626.8) (N93.8) 2. Restless legs syndrome (333.94) (G25.81) 3. Encounter for preventive health examination (V70.0) (Z00.00) Plan DUB (dysfunctional uterine bleeding) 1. Obstetrics/Gynecology Referral. Outpatient 35 yo F presents c/o DUB. Pt has a hx of irregular periods since menarche, but she went on control pills which helped to regulate her menstrual cycles. Pt used the oral contraceptive meds until she became for a 2nd time and then she had her tubes tied on 12/16/13. Pt also reports a hx of ovarian cysts. LMP=03/05/16. Pt has been having heavy bleeding with clots that she reports have been getting increasingly larger. Pt states in mid february she had clots as large as a softball. Pt denies any associated dizziness/lightheadedness. Pt does report severe cramping in her RLQ over the last few weeks. Pt denies any urinary sxs, denies vaginal discharge. Pt is currently sexually active with her same 1 partner for the last 14yrs. Pt states she does not use protection and she is not concerned with STDs. Pt does not know of any hx of fibroids in her family. She does report having an aunt who had an ovarian tumor at age 23 who needed a hysterectomy. Please eval. Status: Hold For - Manual Activation Requested for: 12Mar2016 Ordered; For: DUB (dysfunctional uterine bleeding); Ordered By: Mimi Carrillo Performed: Due: 26Mar2016 Pt sent for a pelvic U/S today Pt refused control pills today of Visits Requested : 99 2. CBC W Differential; Status:In Progress - Specimen/Data Collected; Done: 12Mar2016 Perform:[facility]; Due:11Apr2016; Last Updated By:Natalie Arroyo; 03/12/2016 9:05:12 AM;Ordered; For:DUB (dysfunctional uterine bleeding); Ordered By:Mimi Carrillo; 3. US PELVIS NON OB COMPLETE; Status:Hold For - Scheduling; Requested for:12Mar2016; [facility]form[facility]; Order Comments:35 yo F presents c/o DUB. Pt has a hx of irregular periods since menarche, used to take OCPs but no longer does. Pt had tubes tied in 2013.. LMP=03/05/16. PMH of ovarian cysts and now is having RLQ cramping and softball-sized clots.Please eval.; Due:11Apr2016;Ordered; For:DUB (dysfunctional uterine bleeding); Ordered By:Mimi Carrillo; Flu vaccine need 4. Fluarix 0.5 ML Intramuscular Suspension Prefilled Syringe For: Flu vaccine need; Ordered By:Mimi Carrillo; Effective Date:12Mar2016; Administered by: Dayana Esqueda: 03/12/2016 8:27:00 AM; Last Updated By: Dayana Esqueda; 03/12/2016 8:28:30 AM Discussion/Summary 1) DUB 35 yo F presents c/o DUB. -Hx of irregular periods since menarche, but she went on control pills which helped to regulate her menstrual cycles. -Pt used the oral contraceptive meds until she became for a 2nd time and then she had her tubes tied on 12/16/13. Pt is a (1st daughter born 8 weeks early 2/2 HELLP syndrome) -Pt also reports a hx of ovarian cysts. -LMP=03/05/16. -Pt has been having heavy bleeding with clots that she reports have been getting increasingly larger over the last few months. Pt states in mid february she had clots as large as a softball. Pt doesreport severe cramping in her RLQ over the last few weeks. Pt denies any associated dizziness/lightheadedness. -Pt denies any urinary sxs, denies vaginal discharge. Pt is currently sexually active with her same1 partner for the last 14yrs. Pt states she does not use protection and she is not concerned with STDs. -Pt does not know of any hx of fibroids in her family. She does report having an aunt who had an ovarian tumor at age 23 who needed a hysterectomy. Offered to prescribe control per pt to help regulate her bleeding. Pt declined control rx today stating, I don?t think it will help me. I will just wait to see the REGIONAL PROPERTY MANAGER. -REGIONAL PROPERTY MANAGER referral placed -Pelvic U/S ordered -CBC ordered. Results pending. 2) Restless Leg Syndrome Pt also c/o continued sxs from restless leg syndrome. Pt currently taking Gabapentin 300mg PoQHS. -She reports that her legs are less restless, but they now feel heavy. She also states that sometimes during the day she has an intense pain when her pants brush up against her legs. Pt reports her sxs are relieved by naproxen. -strength and sensation remain in tact in b/l LEs -Discussed with pt that she could increase her Gabapentin 300mg 1 tab PO BID PRN x 1 week and increase to 1 tab PO TID PRN to see if restless leg sxs resolve -Counseled pt to take Naproxen 500mg PO BID PRN 3) Health maintenance OBHx: (1st child was born 8 weeks premature 22 HELLP syndrome). All three births were C/Ss Most recent pap was 1.5yrs ago and wnl per pt report. Plan to repeat pap in 2017 Flu shot given on 03/12/16 Signatures Electronically signed by : Mimi Carrillo M.D.; Mar 12 2016 9:23AM LUG LOADER (Author) documented in this encounter Plan of Treatment Not on file documented as of this encounter Procedures Procedure Name Priority Date/Time Associated Diagnosis Comments CBC W/DIFF AUTOMATED Routine 03/12/2016 9:05 AM CDT documented in this encounter Results * (ABNORMAL) CBC W/DIFF AUTOMATED (03/12/2016 9:05 AM CDT) WBC 8.1 4.8 - 10.8 X10'3/uL [facility] RBC 4.43 4.20 - 5.40 X10'6/uL [facility] HGB 13.8 12.0 - 16.0 g/dL [facility] HCT 41.0 38.0 - 48.0 % [facility] MCV 92.6 81.0 - 99.0 fL [facility] CON[facility] MCH 31.2(H) 27.0 - 31.0 pg [facility] CONVERSION MCHC 33.7 32.0 - 36.0 g/dL [facility] CON[facility] RDW 13.2 11.5 - 14.5 % [facility] PLT 238 130 - 400 X10'3/uL [facility] GLUCOSE 11.7 9.3 - 12.2 fL [facility] CONVERSION BASOPHILS % 0.5 0.0 - 1.0 % [facility] CONVERSION EOSINOPHILS % 5.3(H) 1.0 - 3.0 % [facility] CON[facility] NEUTROPHILS % 63.1 43.0 - 65.0 % [facility] LYMPHOCYTES % 28.2 20.0 - 46.0 % [facility] IMMATURE GRANS % 0.1 0.0 - 1.0 % [facility] CONVERSION DIFFERENTIAL TYPE AUTOMATED [facility] MONOCYTES 2.8(L) 5.0 - 12.0 % [facility] CONVERSION 03/12/2016 9:05 AM CDT 03/12/2016 9:05 AM CDT Narrative [facility] - 03/13/2016 10:30 AM CDT Result Communication: Mail Results to Patient Mimi Carrillo MD LABORATORY Final Result Performing Organization Address City/State/[facility] Co de Phone Number [facility] CON[facility] documented in this encounter Visit Diagnoses Not on filedocumented in this encounter Care Teams Plodding Operator Relationship Specialty Start Date End Date Tony Lang MD [address] [place], [place] [address] PCP - General 08/06/16 07/23/18 Tony Lang MD [address] [place] [address] PCP - General 07/30/16 08/05/16 Tony Lang MD [address], [place] 6[address]39 PCP - General 07/05/16 07/29/16 Mimi Carrillo MD [address] [place] [address] PCP - General 07/04/16 07/04/16 Tony Lang MD [address] [place], [place] 6[address] PCP - General 03/26/16 07/03/16 Jeff Sanford MD PCP - General 03/21/1603/25 Tony Lang MD [place] [address]189 PCP - General 03/12/16 03/20/16 documented as of this encounter
--- OUTSIDE RECORDS SUMMARY | 2024-05-29 15:44 | XMS_ITS | Encounter Summary ---
Author Organization [facility] Address [address] [place] [address]. [place], [place] [address] [place] [address] Care Team Providers Care Gas Analyst Name Role Phone Tony Lang MD Primary Care Provider [phone] Tony Lang MD Primary Care Provider [phone] Tony Lang MD Primary Care Provider Mimi Carrillo MD Primary Care Provider [phone] Tony Lang MD Primary Care Provider Jeff Hester MD Primary Care Provider Unavailable Tony Lang MD Primary Care Provider [phone] Tony Lang MD Primary Care Provider Encounter Details Date Type Department Care Team (Late st Contact Info) Description 08/29/[address] 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 Gender Identity Not on file Sexual Orientation Not on file documented as of this encounter Plan of Treatment Not on file documented as of this encounter Procedures Procedure Name Priority Date/Time Associated Diagnosis Comments VITAMIN B12 / FOLATE Routine 08/29/2015 10:11 AM CDT TSH W/REFLEX Routine 08/29/2015 10:11 AM CDT IRON SAT PANEL (IRON,IBC,%SAT) Routine 08/29/2015 10:11 AM CDT URINALYSIS, AUTO, COMPLETE Routine 08/29/2015 10:11 AM CDT CBC W/DIFF AUTOMATED Routine 08/29/2015 10:11 AM CDT VITAMIN D, 25 OH Routine 08/29/2015 10:1 1 AM CDT documented in this encounter Results * (ABNORMAL) URINALYSIS, AUTO, COMPLETE (08/29/2015 10:11 AM CDT) SOURCE (FLUID) URINE CLEAN CATCH 08/29/2015 9:24 PM CDT [facility] COLOR (U) YELLOW 08/29/2015 10:25 PM CDT [facility] TRANSPARENCY CLOUDY 08/29/2015 10:25 PM CDT [facility] SPECIFIC GRAVITY (U) 1.024 1.001 - 1.030 08/29/2015 10:25 PM CDT [facility] U PH 5.0 5.0 - 9.0 08/29/2015 10:25 PM CDT [facility] LEUKOCYTES (U) NEGATIVE NEGATIVE 08/29/2015 10:25 PM CDT [facility] NITRITES NEGATIVE NEGATIVE 08/29/2015 10:25 PM CDT [facility] PROTEIN (U) NEGATIVE <30 MG/DL 08/29/2015 10:25 PM CDT [facility] URINE GLUCOSE NEGATIVE NEGATIVE MG/DL 08/29/2015 10:25 PM CDT [facility] KETONES MG/DL (U) NEGATIVE NEGATIVE MG/DL 08/29/2015 10:25 PM CDT [facility] UROBILINOGEN NEGATIVE NEGATIVE MG/DL 08/29/2015 10:25 PM CDT [facility] BILIRUBIN (U) NEGATIVE NEGATIVE MG/DL 08/29/2015 10:25 PM CDT [facility] BLOOD (U) SMALL(A) NEGATIVE 08/29/2015 10:25 PM CDT [facility] SQUAMOUS EPITHELIALS MODERATE /LPF 08/29/2015 10:25 PM CDT [facility] TRANSITIONAL EPI RARE /HPF 08/29/19 16 10:25 PM CDT [facility] MUCUS FEW /LPF 08/29/2015 10:25 PM CDT [facility] WBC/HPF <1 <6 /HPF 08/29/2015 10:25 PM CDT [facility] RBC/HPF <1 <6 /HPF 08/29/2015 10:25 PM CDT [facility] CA OXALATE CRYSTALS RARE /HPF 08/29/2015 10:25 PM CDT [facility] 08/29/2015 10:1 1 AM CDT 08/29/2015 9:38 PM CDT us Generic Conversion Md [facility] URINE ORDERABLES Final Result [facility] [address] [place] [address], * (ABNORMAL) VITAMIN D, 25 OH (08/29/2015 10:11 AM CDT) VITAMIN D 25 HYDROXY S/P/B 18(L) 30 - 100 NG/ML 08/30/2015 6:21 PM CDT [facility] Comment: SUPPLEMENTING WITH VITAMIN D2 MAY RESULT IN FALSELY LOW RESULTS, CLINICAL CORRELATION NEEDED. ? INTERPRETATION ? DEFICIENT ??<20 ?INSUFFICIENT 20-30 ?SUFFICIENT 30-100 POTENTIAL INTOXICATION ??>100 TESTING PERFORMED AT [address] [address] 08/29/2015 10:1 1 AM CDT 08/29/2015 9:38 PM CDT us Generic Conversion Md [facility] Final [facility] Performing Organization Address City/[facility]/ZIP Co de Phone Number [facility] [address] [place] [address], [place] [phone] * TSH W/REFLEX (SNS) (08/29/2015 10:11 AM CDT) TSH 0.78 0.27 - 4.20 mIU/mL 08/29/2015 10:30 PM CDT [facility] Comment:FREE T4 NOT INDICATE D SERUM OR PLASMA SPECIMEN / Unknown 08/29/2015 10:11 AM CDT 08/29/2015 9:37 PM CDT us Generic Conversion Md [facility] Final R sienna Performing Organization Address City/[facility]/ZIP Co de Phone Number [facility] [address] [place] [address], [place] [phone] * (ABNORMAL) IRON SATURATION PANEL (08/29/2015 10:11 AM CDT) IRON 51 37 - 145 mcg/dL 08/29/2015 10:30 PM CDT [facility] IRON BINDING CAPACITY 375 250 - 450 mcg/dL 08/29/2015 10:30 PM CDT [facility] IRON SATURATION 14(L) 20 - 55 % 6 10:30 PM CDT [facility] UNBOUND IRON BINDING CAPACITY 324 112 - 360 mcg/dL 08/29/2015 10:30 PM CDT [facility] 08/29/2015 10:1 1 AM CDT 08/29/2015 9:37 PM CDT us Generic Conversion Md [facility] Final R esult [facility] [address] [place] [address], * (ABNORMAL) CBC W/DIFF AUTOMATED (08/29/2015 10:11 AM CDT) WBC 9.5 4.8 - 10.8 X10'3/uL 08/29/2015 9:55 PM CDT [facility] RBC 4.93 4.20 - 5.40 X10'6/uL 08/29/2015 9:55 PM CDT [facility] HGB 14.6 12.0 - 16.0 g/dL 08/29/2015 9:55 PM CDT [facility] HCT 45.0 38.0 - 48.0 % 08/29/2015 9:55 PM CDT [facility] MCV 91.3 81.0 - 99.0 fL 08/29/2015 9:55 PM CDT [facility] MCH 29.6 27.0 - 31.0 pg 08/29/2015 9:55 PM CDT [facility] MCHC 32.4 32.0 - 36.0 g/dL 08/29/2015 9:55 PM CDT [facility] RDW 13.2 11.5 - 14.5 % 08/29/2015 9:55 PM CDT [facility] PLT 239 130 - 400 X10'3/uL 08/29/2015 9:55 PM CDT [facility] MPV 11.5 9.3 - 12.2 fL 08/29/2015 9:55 PM CDT [facility] DIFFERENTIAL TYPE AUTOMATED 08/29/2015 9:55 PM CDT [facility] NEUTROPHILS % 61.2 43.0 - 65.0 % 08/29/2015 9:55 PM CDT [facility] LYMPHOCYTES % 29.1 20.0 - 46.0 % 08/29/2015 9:55 PM CDT [facility] MONOCYTES % 5.1 5.0 - 12.0 % 08/29/2015 9:55 PM CDT [facility] EOSINOPHILS 3.9(H) 1.0 - 3.0 % 08/29/2015 9:55 PM CDT [facility] BASOPHILS 0.5 0.0 - 1.0 % 08/29/2015 9:55 PM CDT [facility] IMMATURE GRANS % 0.2 0.0 - 1.0 % 08/29/2015 9:55 PM CDT [facility] 08/29/2015 10:1 1 AM CDT 08/29/2015 9:37 PM CDT us Generic Conversion Md [facility] Final R esult [facility] [address] [place] [address], * VITAMIN B12 / FOLATE (08/29/2015 10:11 AM CDT) VITAMIN B12 S/P/B 364 211 - 946 pg/mL 08/29/2015 10:30 PM CDT [facility] FOLATE 8.8 7.3 - 26.1 ng/mL 08/29/2015 10:31 PM CDT [facility] 08/29/2015 10:1 1 AM CDT 08/29/2015 9:37 PM CDT us Jeff Cisse Md, MD LABORATORY Final R esult [facility] [address] [place] [address], documented in this encounter Visit Diagnoses Diagnosis Irregular menstruation Irregular menstrual cycle documented in this encounter Care Teams Gas Analyst Relationship Specialty Start Date End Date Tony Lang MD [address], [place] [phone] PCP - General 08/06/16 07/23/18 Tony Lang MD [address], [place] [address] PCP - General 07/30/16 08/05/16 Tony Lang MD [address], [place] [address] PCP - General 07/05/16 07/29/16 Mimi Carrillo MD [address], [place] [address]459 PCP - General 07/04/16 07/04/16 Tony Lang MD [address] [address] PCP - General 03/26/16 07/03/16 Jeff Hester MD PCP - General 03/21/1603/25 Tony Lang MD [address], [place] [address] PCP - General 03/12/16 03/20/16 Tony Lang MD [address] [facility] [address] [place] [address] PCP - General 08/29/15 03/11/16 documented as of this encounter
--- OUTSIDE RECORDS SUMMARY | 2024-05-29 15:44 | XMS_ITS | Encounter Summary ---
Author Organization [facility] Address [facility]6 [facility]. [place], [place] [address] [place] [address] Care Team Providers Care Cut Off Sawyer Name Role Phone Tony Lang MD Primary Care Provider Tony Lang MD Primary Care Provider Tony Lang MD Primary Care Provider Mimi Carrillo MD Primary Care Provider Tony Lang MD Primary Care Provider Jeff Sanford MD Primary Care Provider Unavailable Tony Lang MD Primary Care Provider Tony Lang MD Primary Care Provider oTny Lang MD Primary Care Provider Tony Lang MD Primary Care Provider Tony Lang MD Primary Care Provider Tony Lang MD Primary Care Provider Tony Lang MD Primary Care Provider Tony Lang MD Primary Care Provider Tony Lang MD Primary Care Provider Encounter Details Date Type Department Care Team (Late st Contact Info) Description 10/19/2014 Abstract [facility] Family Medicine [address] [place] [address] Tony Lang MD [facility] [place] [address] Social History Tobacco Use Types Packs/Day Years Used Date Smoking Tobacco: Never Assessed Comments Unknown Sex and Gender Information Value Date Recorded Sex Assigned at Not on file Legal Sex 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 Gender Identity Not on file Sexual Orientation Not on file documented as of this encounter Last Filed Vital Signs Vital Sign Reading Time Taken Comments Blood Pressure 130/80 10/19/2014 8:55 AM CDT Pulse 88 10/19/2014 8:55 AM CDT Temperature - - Respiratory Rate - - Oxygen Saturation - - Inhaled Oxygen Concentration - - Weight 87.5 kg (193 lb) 10/19/2014 8:55 AM CDT Height 154.9 cm (5' 1 ) 10/19/2014 8:55 AM CDT Body Mass Index 36.47 10/19/2014 8:55 AM CDT documented in this encounter Progress Notes * Tony Lang MD - 10/19/2014 9:00 AM CDT Reason For Visit Acute Follow-Up Visit Chief Complaint f/u exam History of Present Illness Patient presents for f/u exam for Vocal Cord Dysfunction and Rash. She states both have improved. She also would like to discuss a sore on her left hand and rt upper back / shoulder pain. . Overall improvement in choking symptoms/cough with use of singulair medication. Episodes have decreased substantially. Has had a few recurrences but not at night with sleeping...she thinks they occurred on days when she missed her medication. Less CROW and urticaria symptoms as well. Overall pretty pleased with result. Still smoking 1/3 ppd of tob...trying to cut down. Fredi derm rash much improve with selenium and TAC ointment rx. Has 1 week hx of sore on ring finger left hand. Rx with bandaid and otc remedies. No fever. no spreading redness. Sore is healing, just slowly....wondering if this is okay or not 1-2 day hx of upper back pain, spasm on rt side. no radiation. No trauma but she does do a lot of lifting with arm / shoulder at work. Review of Systems See HPI for pertinent positives. Constitutional: Normal. ENT: sore throat, but normal. Cardiovascular: Normal. Respiratory: shortness of breath. Gastrointestinal: Normal. Genitourinary: Normal. Integumentary: skin rash. Musculoskeletal: Normal. Neurological: Normal. Psychiatric: Normal. Active Problems 1. Allergic rhinitis (477.9) (J30.9) 2. Amenorrhea (626.0) (N91.2) 3. Carpal tunnel syndrome (354.0) (G56.00) 4. Choking sensation (784.99) (R09.89) 5. Fibromyalgia (729.1) (M79.7) 6. IBS (irritable bowel syndrome) (564.1) (K58.9) 7. Seborrheic dermatitis (690.10) (L21.9) Past Medical History 1. Fibromyalgia (729.1) (M79.7) 2. History of HELLP syndrome (642.50) (O14.20) 3. History of fracture of finger (V15.51) (Z87.81) 4. History of irritable bowel syndrome (V12.79) (Z87.19) [...] TABLET AT BEDTIME; Therapy: 21Sep2014 to (Last Rx:21Sep2014) Requested for: 21Sep2014 Ordered 2. Naproxen 500 MG Oral Tablet; Take 1 twice daily; Therapy: 21Sep2014 to (Evaluate:21Oct2014) Requested for: 21Sep2014; Last Rx:21Sep2014 Ordered 3. Selenium Sulfide 2.5 % External Lotion; Apply to affected areas and lather with small amount of water. Leave on your skin for 10 minutes. Rinse it off; Therapy: 21Sep2014 to (Last Rx:[id number]) Requested for: 71Swd2883 Ordered 4. Triamcinolone Acetonide 0.1 % External Ointment; APPLY SPARINGLY TO AFFECTED AREA(S) TWICE DAILY; Therapy: 21Sep2014 to (Last Rx:[id number]) Requested for: 77Iwl5802 Ordered Allergies 1. Lodine Vitals Recorded: 19Oct2014 08:55AM Temperature 98.3 F Heart Rate 88 Respiration 16 Systolic 130 Diastolic 80 O2 Saturation 96 Height 5 ft 1 in Weight 193 lb BMI Calculated 36.47 BSA Calculated 1.86 LMP 03Oct2014 Physical Exam Neck: no adenopathy, thyroid not enlarged, no thyroid nodules. Cardiovascular: RRR, normal S1/S2, no murmurs, no gallops. Vascular: no lower extremity edema. Respiratory: CTAB, no wheezing, no rhonchi, no crackles/rhales. Skin: rash and Fredi derm on eyebrow and nasolabial fold much improved, no flaking (minimal redness).small 2mm sore /ulcer on ring finger with minimal erythema..small scab. Thoracic Spine: Appearance: Normal . Palpation/Tenderness: right paraspinal at level T2-5. Palpatory Findings include right-sided musclespasms. ROM: Full except as noted. Lateral flexion to the left was restricted and was painful. Strength Testing: Normal . Right Upper Extremity: Inspection and Palpation: Normal. ROM: Normal. Strength: Normal. Stability: Normal. Left Upper Extremity: Inspection and Palpation: Normal. ROM: Normal. Strength: Normal. Stability: Normal. Neurologic:. Normal upper extremity peripheral neuro exam. Procedure OMT - HVLA to T spine right and left side T2-7. Myofascial release prior to HVLA. Assessment 1. Choking sensation (784.99) (R09.89) 2. Allergic rhinitis (477.9) (J30.9) 3. Seborrheic dermatitis (690.10) (L21.9) 4. Back pain, thoracic (724.1) (M54.6) 5. Skin sore (709.9) (L98.9) AR and choking sensation: Both improved with singulair. Will hold with further w/u or treatment fornow. Tob cessation counseling. f/u prn. Sx likely from AR and possible extrinsic asthma overlay. Fredi derm - improved on current regimin. Continue with q 1-2 day of TAC and daily selenium us Skin sore - healing slowly but appropriately..reassurance Thoracic pain / dysfunction - OMT today with good result (improved mobility and pain). Recommend HEP (handout provided). Naprosyn bid for 2-3 days. f/u prn worsening sx. Signatures Electronically signed by : Tony Lang M.D.; Oct 19 2014 9:29AM PROOF COINS INSPECTOR (Author) documented in this encounter Plan of Treatment Not on file documented as of this encounter Visit Diagnoses Not on filedocumented in this encounter Care Teams Cut Off Sawyer Relationship Specialty Start Date End Date Tony Lang MD [place] [id number] PCP - General 08/06/16 07/23/18 [place] [address] PCP - General 07/30/16 08/05/16 [place] [address] PCP - General 07/05/16 07/29/16 [place] [address] PCP - General 07/04/16 07/04/16 Tony Lang MD [address] [place] [address] PCP - General 03/26/16 07/03/16 Jeff Sanford MD PCP - General 03/21/1603/25 Tony Lang MD [address] [place] [address] PCP - General 03/12/16 03/20/16 Tony Lang MD [address] [place] [address] PCP - General 08/29/15 03/11/16 Tony Lang MD [address] [place] [address] PCP - General 06/02/15 08/28/15 Tony Lang MD [address] [place] [address] PCP - General 01/13/15 06/01/15 Tony Lang MD [address] [place] [address] PCP - General 01/11/15 01/12/15 Tony Lang MD [address] [place] [address] PCP - General 01/06/15 01/10/15 Tony Lang MD [address] [place] [address] PCP - General 01/04/15 01/05/15 Tony Lang MD [address] [place] [address] PCP - General 12/30/14 01/03/15 [place] [address] PCP - General 12/28/14 12/29/14 documented as of this encounter
--- OUTSIDE RECORDS SUMMARY | 2024-05-29 15:44 | XMS_ITS | Encounter Summary ---
Author Organization [facility] Address [facility]. 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 Gender Identity Not on file Sexual Orientation Not on file documented as of this encounter Last Filed Vital Signs Vital Sign Reading Time Taken Comments Blood Pressure 120/80 02/10/2015 8:53 AM CDT Pulse 91 02/10/2015 8:53 AM CDT Temperature - - Respiratory Rate - - Oxygen Saturation - - Inhaled Oxygen Concentration - - Weight 89.4 kg (197 lb) 02/10/2015 8:53 AM CDT Height 154.9 cm (5' 1 ) 02/10/2015 8:53 AM CDT Body Mass Index 37.22 02/10/2015 8:53 AM CDT documented in this encounter Progress Notes * Tony Lang MD - 02/10/2015 9:00 AM CDT Reason For Visit Chronic Recheck Visit Chief Complaint Patient presents for f/u exam and to discuss a L breast lump. History of Present Illness HPI: Patient presents for f/u exam and to discuss a L breast lump. HPI Free Text: f/u on rt hip pain. S/P PT for 3-4 sessions. COntinues HEP at home as well. Using no medications. Reports marked improvement in symptoms. Doesn't believe that she needs any injection. Also 1-2 weeks sx of left breast pain. No discharge from nipple. NO personal or family hx of breastcancer. Unsure if she feels a lump or not in the region of the pain. Hx of breast feeding > 1 year ago. NO redness. No fever. Mid cycle right now. Review of Systems See HPI for [...] IBS (irritable bowel syndrome) (564.1) (K58.9) 7. Piriformis syndrome (355.0) (G57.00) 8. Seborrheic dermatitis (690.10) (L21.9) Past Medical History 1. History of Back pain, thoracic (724.1) (M54.6) 2. History of Choking sensation (784.99) (R09.89) 3. Fibromyalgia (729.1) (M79.7) 4. History of HELLP syndrome (642.50) (O14.20) 5. History of fracture of finger (V15.51) (Z87.81) 6. History of irritable bowel syndrome (V12.79) (Z87.19) [...] Tablet; TAKE 1 TABLET AT BEDTIME; Therapy: 22Qgz4753 to (Last Rx:[id number]) Requested for: 68Ydv2702 Ordered 2. Naproxen 500 MG Oral Tablet; TAKE 1 TABLET BY MOUTH TWICE DAILY; Therapy: 48Smr8205 to (Evaluate:05Ztk0165) Requested for: 80Fyu4399; Last Rx:[id number] Ordered 3. Naproxen 500 MG Oral Tablet; TAKE 1 TABLET EVERY 12 HOURS NEEDED; Therapy: 26Yyv4115 to (Evaluate:12Fpx0885) Requested for: 39Uny9737; Last Rx:[id number] Ordered 4. Selenium Sulfide 2.5 % External Lotion; Apply to affected areas and lather with small amount of water. Leave on your skin for 10 minutes. Rinse it off; Therapy: 10Tex7525 to (Last Rx:[id number]) Requested for: [id number] Ordered 5. Triamcinolone Acetonide 0.1 % External Ointment; APPLY SPARINGLY TO AFFECTED AREA(S) TWICE DAILY; Therapy: 17Gyk3130 to (Last Rx:[id number]) Requested for: [id number] Ordered Allergies 1. Isabel Vitals Recorded: 81Bmg0713 08:53AM Temperature 98.9 F Heart Rate 91 Respiration 16 Systolic 120 Diastolic 80 O2 Saturation 98 Height 5 ft 1 in Weight 197 lb BMI Calculated 37.22 BSA Calculated 1.88 LMP [id number] Physical Exam Constitutional General appearance: No acute distress, well appearing and well nourished. Chest Breasts: Normal and no dimpling or skin changes noted. Right breast: normal appearance, no erythema, no atrophy, no swelling, no [place], no dimpling and no dilated superficial veins. Left breast: hypertrophy, but normal appearance, no erythema, no atrophy present, no swelling, no [place], no dimpling and no dilated superficial veins. Examination of the nipples revealed normal appearance and no discharge. Right Breast: Left Breast: no masses palpated. A tender mass was palpated in the superior lateral quadrant. Axillary Nodes: Non-tender axillary node palpated on the left. Left upper outer breast tissue ttp ,no nodule or dominant mass though. Lumbosacral Spine: Appearance: Normal . Palpation/Tenderness: Normal . ROM: Full. Strength Testing: Normal . Special Tests: negative Trendelenburg's test. Right Hip: Appearance: Normal. Tenderness: None except the gluteus renita, but not the greater trochanter and bursa. Mild ttp at piriformis/glute medius insertion. ROM: Full. Motor: Normal. Counseling The patient was counseled regarding instructions for management, risk factor reductions, prognosis and impressions. 15 minutes was spent counseling. Assessment 1. Piriformis syndrome (355.0) (G57.00) 2. Breast pain (611.71) (N64.4) Piriformis syndrome - improved with PT, pt is very encouraged...will continue to do HEP Left breast pain - exam normal today except for upper / outer quad tender breast tissue. Advice on watchful waiting, supportive bra, decrease caffeine if possible. F/U one month for persistent or increasing sx and at that time will consider u/s for further w/u. If sx resolve then no need for f/u. NSAID prn. Signatures Electronically signed by : Tony Lang M.D.; Feb 10 2015 9:26AM PEANUT CLEANER (Author) documented in this encounter Plan of Treatment Not on file documented as of this encounter Visit Diagnoses Not on filedocumented in this encounter Care Teams Irradiated Fuel Handler Relationship Specialty Start Date End Date Tony Lang MD [address] [place] [address] PCP - General 08/06/16 07/23/18 Tony Lang MD [address] [place] [address] PCP - General 07/30/16 08/05/16 Tony Lang MD [address] [place] [address] PCP - General 07/05/16 07/29/16 M[place] [address] PCP - General 07/04/16 07/04/16 Tony [place] [address] PCP - General 03/26/16 07/03/16 Jeff Sanford MD PCP - General 03/21/1603/25 Tony [place] [address] PCP - General 03/12/16 03/20/16 Tony Lang MD [address] [place] [address] PCP - General 08/29/15 03/11/16 Tony Lang MD [address] [place] [address] PCP - General 06/02/15 08/28/15 Tony Lang MD [address] [place] [address] PCP - General 01/13/15 06/01/15 documented as of this encounter
--- OUTSIDE RECORDS SUMMARY | 2024-05-29 15:44 | XMS_ITS | Encounter Summary ---
Author Organization [facility] Address [address] [place] [address]. [place], [place] [address] [place] [address] Care Team Providers Care Fishing Tackle Repairer Name Role Phone Tony Lang MD Primary [...] Care Team (Late st Contact Info) Description 06/02/[address] [facility] [place] [address] Tony Lang MD [address] [place] [address] Social History Tobacco Use Types Packs/Day Years Used Date Smoking Tobacco: Never Assessed Comments Unknown Sex and Gender Information Value Date Recorded Sex Assigned at Not on file Legal Sex Female 2:59 PM PLOW HOLDER Gender Identity Not on file Sexual Orientation Not on file documented as of this encounter Plan of Treatment Not on file documented as of this encounter Procedures Procedure Name Priority Date/Time Associated Diagnosis Comments URINE BACTERIA CULTURE Routine 06/02/2015 7:32 AM PLOW HOLDER documented in this encounter Results * CULTURE URINE (06/02/2015 7:32 AM PLOW HOLDER) SPEC DESCRIPTION URINE CLEAN CATCH 06/02/2015 2:52 PM PLOW HOLDER [facility] SPECIAL REQUESTS NO SPECIAL REQUEST 06/02/2015 2:52 PM PLOW HOLDER [facility] CULTURE RESULT NO GROWTH 2 DAYS 06/04/2015 8:31 AM PLOW HOLDER [facility] URINE SPECIMEN OBTAINED BY CLEAN CATCH PROCEDURE / Unknown 06/02/2015 7:32 AM PLOW HOLDER 06/02/2015 4:20 PM PLOW HOLDER us Generic Conversion Md [facility] - GENERAL ORDERABLES Final Result Performing Organization Address City/State/[facility] de Phone Number [facility] [address] [id number], documented in this encounter Visit Diagnoses Diagnosis Unspecified symptoms and signs involving the genitourinary system documented in this encounter Care Teams Fishing Tackle Repairer Relationship Specialty Start Date End Date Tony Lang MD [address] [place], [place] [address] PCP - General 08/06/16 07/23/18 Tony Lang MD [address] [place], [place] [address] PCP - General 07/30/16 08/05/16 Tony Lang MD [address] [place] [address] PCP - General 07/05/16 07/29/16 Mimi Carrillo MD [address] [place], [place] [address] PCP - General 07/04/16 07/04/16 Tony Lang MD [address] [place] [address] PCP - General 03/26/16 07/03/16 Jeff Hester MD PCP - General 03/21/1603/25 Tony Lang MD [address] [place] [address] PCP - General 03/12/16 03/20/16 Tony Lang MD [address] [place] [address] PCP - General 08/29/15 03/11/16 Tony Lang MD [address] [place] [address] PCP - General 06/02/15 08/28/15 documented as of this encounter
--- OUTSIDE RECORDS SUMMARY | 2024-05-29 15:44 | XMS_ITS | Encounter Summary ---
Author Organization [facility] Address [address] [place] [address]. 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 Gender Identity Not on file Sexual Orientation Not on file documented as of this encounter Plan of Treatment Not on file documented as of this encounter Visit Diagnoses Not on filedocumented in this encounter Care Teams Product Support Consultant Relationship Specialty Start Date End Date Tony Lang MD [address] [place] [address] PCP - General 08/06/16 07/23/18 Tony Lang MD [address] [place] [address] PCP - General 07/30/16 08/05/16 Tony Lang MD [address] [place] [address] PCP - General 07/05/16 07/29/16 Mimi Carrillo MD [address] [place] [address] PCP - General 07/04/16 07/04/16 Tony Lang MD [address] [place] [address] PCP - General 03/26/16 07/03/16 Jeff Sanford MD PCP - General 03/21/1603/25 Tony Lang MD [address] [place] [address] PCP - General 03/12/16 03/20/16 Tony Lang MD [address] [place] [address] PCP - General 08/29/15 03/11/16 Tony Lang MD [address] [place] [address] PCP - General 06/02/15 08/28/15 [place] [address] PCP - General 01/13/15 06/01/15 [place] [address] PCP - General 01/11/15 01/12/15 [place] [address] PCP - General 01/06/15 01/10/15 [place] [address] PCP - General 01/04/15 01/05/15 [place] [address] PCP - General 12/30/14 01/03/15 documented as of this encounter
--- OUTSIDE RECORDS SUMMARY | 2024-05-29 15:44 | XMS_ITS | Encounter Summary ---
Author Organization [facility] Address [facility]. [place], [place] [address] [place] [address] Care Team Providers Care Engine Specialist Name Role Phone Tony Lang MD Primary [...] Care Team (Late st Contact Info) Description 12/23/2014 Abstract [facility] Family Medicine [address] [id number] [place] [address] Tony Lang MD 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 Gender Identity Not on file Sexual Orientation Not on file documented as of this encounter Last Filed Vital Signs Vital Sign Reading Time Taken Comments Blood Pressure 134/82 12/23/2014 7:21 AM CDT Pulse 89 12/23/2014 7:21 AM CDT Temperature - - Respiratory Rate - - Oxygen Saturation - - Inhaled Oxygen Concentration - - Weight 89.4 kg (197 lb) 12/23/2014 7:21 AM CDT Height 154.9 cm (5' 1 ) 12/23/2014 7:21 AM CDT Body Mass Index 37.22 12/23/2014 7:21 AM CDT documented in this encounter Progress Notes * Tony Lang MD - 12/23/2014 7:30 AM CDT Reason For Visit Chronic Recheck Visit Chief Complaint Patient presents for R hip pain, onset years ago. History of Present Illness HPI: Patient presents for R hip pain, onset years ago. Patient c/o sharp and dull pain, limited ROM, and difficulty walking. HPI Free Text: 2 month hx of worsening rt hip pain. Has had on and off issues with the hip for about 10 years. Pain localized in the rt buttock region. Doesn't radiate to the leg. No inciting incident. No trauma. No weakness in leg. Has had some OMT rx in past and NSAIDs but no physical therapy. Has had negative xrays in the past (> 5 yrs ago). Using naprosyn rt now to help with pain. No fever, No LE weakness, no bowel/bladder dysfunction On no exercise program rt now. Smoking 1-2 cig a day. Choking/coughing sx resolved since start of singulair. Needs refill Review of Systems See HPI for pertinent positives. Constitutional: Normal. ENT: normal. Cardiovascular: Normal. Respiratory: Normal. Gastrointestinal: Normal. Genitourinary: Normal. Integumentary: Normal. Musculoskeletal: joint pain and joint stiffness. Neurological: Normal. Psychiatric: Normal. Active Problems 1. Allergic rhinitis (477.9) (J30.9) 2. Amenorrhea (626.0) (N91.2) 3. Carpal tunnel syndrome (354.0) (G56.00) 4. Fibromyalgia (729.1) (M79.7) 5. IBS (irritable bowel syndrome) (564.1) (K58.9) 6. Seborrheic dermatitis (690.10) (L21.9) Past Medical History [...] 1 TABLET BY MOUTH TWICE DAILY; Therapy: 43Fdk4104 to (Evaluate:[id number]) Requested for: 70Aty3640; Last Rx:[id number] Ordered 3. Selenium Sulfide 2.5 % External Lotion; Apply to affected areas and lather with small amount of water. Leave on your skin for 10 minutes. Rinse it off; Therapy: 45Xqx5842 to (Last Rx:[id number]) Requested for: [id number] Ordered 4. Triamcinolone Acetonide 0.1 % External Ointment; APPLY SPARINGLY TO AFFECTED AREA(S) TWICE DAILY; Therapy: 86Pwt5693 to (Last Rx:[id number]) Requested for: [id number] Ordered Allergies 1. Isabel Vitals Recorded: 23Dec2014 07:21AM Temperature 97 F Heart Rate 89 Respiration 16 Systolic 134 Diastolic 82 O2 Saturation 97 Height 5 ft 1 in Weight 197 lb BMI Calculated 37.22 BSA Calculated 1.88 LMP 76Ssc5846 Physical Exam Constitutional: awake, alert, no acute distress. Neck: no adenopathy, thyroid not enlarged, no thyroid nodules. Respiratory: CTAB, no wheezing, no rhonchi, no crackles/rhales. Neurlogical: cranial nerves intact, normal sensation, normal strength. Lumbosacral Spine: Appearance: Normal . Palpation/Tenderness: Normal . ROM: Full. Strength Testing: Normal . Special Tests: positive Trendelenburg's test. Right Hip: Appearance: Normal. Tenderness: None except the gluteus renita, gluteus minimus, greater trochanter and bursa, sciatic notch and sacroiliac joint. ROM: Full. External rotation: painful. Motor: Normal. External rotation was painful. Special Tests: negative CECILE test and negative impingement test. Lower Extremity Peripheral Neuro Exam: Neuromuscular strength examination findings: normal bilateral foot eversion, inversion, and great toe extension. Counseling The was counseled regarding instructions for management and impressions. 15 minutes was spent counseling. Assessment 1. Piriformis syndrome (355.0) (G57.00) 2. Cough variant asthma (493.82) (J45.991) Piriformis syndrome rt side - d/w pt nature of condition and need or PT rehab. Offered steroid injection today or at f/u if PT doesn't seem to be improving sx. Pt elects to wait on steroid injection.Naprosyn, ice prn for pain. Work restriction for no climbing. f/u 6-8 weeks. Ed handout provided. cough variant asthma/AR - singulair refill today. Sx are controlled. Plan Allergic rhinitis 1. Montelukast Sodium 10 MG Oral Tablet (Singulair); TAKE 1 TABLET AT BEDTIME Rx By: Tony Lang; Dispense: 0 Days ; #:30 Tablet; Refill: 2; For: Allergic rhinitis; EDWARD = N; Verified Transmission to [facility] 42307; Last Updated By: LucidEra; 12/23/20147:59:06 AM Piriformis syndrome 2. Naproxen 500 MG Oral Tablet; TAKE 1 TABLET EVERY 12 HOURS NEEDED Rx By: Tony Lang; Dispense: 30 Days ; #:60 Tablet; Refill: 2; For: Piriformis syndrome; EDWARD = N; Verified Transmission to [facility]; Last Updated By: LucidEra; 12/23/2014 7:59:06 AM Signatures Electronically signed by : Tony Lang M.D.; Dec 23 2014 8:06AM FOILING MACHINE OPERATOR (Author) documented in this encounter Plan of Treatment Not on file documented as of this encounter Visit Diagnoses Not on filedocumented in this encounter Care Teams Engine Specialist Relationship Specialty Start Date End Date Tony Lang MD [address] [place], [place] [id number] PCP - General 08/06/16 07/23/18 Tony Lang MD [address], [place] [id number] PCP - General 07/30/16 08/05/16 Tony Lang MD [address] [place], [place] [id number] PCP - General 07/05/16 07/29/16 Mimi Carrillo MD [address] [place] [address] PCP - General 07/04/16 07/04/16 Tony Lang MD [address] [place] [address] PCP - General 03/26/16 07/03/16 Jeff Sanford MD PCP - General 03/21/1603/25 Tony Lang MD [address] [place] [address] PCP - General 03/12/16 03/20/16 Tony Lang MD [address] [place], [place] [id number] PCP - General 08/29/15 03/11/16 Tony Lang MD [address] [place], [place] [id number] PCP - General 06/02/15 08/28/15 Tony Lang MD [address] [place], [place] [id number] PCP - General 01/13/15 06/01/15 Tony Lang MD [address] [place], [place] [id number] PCP - General 01/11/15 01/12/15 Tony Lang MD [address] [place], [place] [id number] PCP - General 01/06/15 01/10/15 Tony Lang MD [address] [place] [id number] PCP - General 01/04/15 01/05/15 Tony Lang MD [address] [place] [id number] PCP - General 12/30/14 01/03/15 Tony Lang MD [address] [place] [id number] PCP - General 12/28/14 12/29/14 documented as of this encounter
--- OUTSIDE RECORDS SUMMARY | 2024-05-29 15:44 | XMS_ITS | Encounter Summary ---
Author Organization [facility] Address [facility]. [place], [place] [address] [place] [address] Care Team Providers Care Occup Therapist Name Role Phone Tony Lang MD Primary Care Provider [phone] Tony Lang MD Primary Care Provider [phone] Tony Lang MD Primary Care Provider [phone] Mimi Carrillo MD Primary Care Provider [phone] Tony Lang MD Primary Care Provider [phone] Jeff Sanford MD Primary Care Provider Unavailable Encounter Details Date Type Department Care Team (Latest Contact Info) Description 03/21/2016 Abstract [facility] Medical Group Social History Tobacco Use Types Packs/Day Years Used Date Smoking Tobacco: Never Assessed Comments Unknown Sex and Gender Information Value Date Recorded Sex Assigned at Not on file 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 Gender Identity Not on file Sexual Orientation Not on file documented as of this encounter Plan of Treatment Not on file documented as of this encounter Visit Diagnoses Not on filedocumented in this encounter Care Teams Occup Therapist Relationship Specialty Start Date End Date Tony Lang MD [address], [place] [phone] PCP - General 08/06/16 07/23/18 Tony Lang MD [address] [place] [address] PCP - General 07/30/16 08/05/16 Tony Lang MD [address] [facility] [place] [address] PCP - General 07/05/16 07/29/16 Mimi Carrillo MD [address] [facility] [address] [place], [place] [id number] PCP - General 07/04/16 07/04/16 Tony Lang MD [address] [facility] [address] [place], [place] [id number] PCP - General 03/26/16 07/03/16 Jeff Sanford MD PCP - General 03/21/1603/25 documented as of this encounter
--- OUTSIDE RECORDS SUMMARY | 2024-05-29 15:44 | XMS_ITS | Encounter Summary ---
Author Organization [facility] Address [address] [place] [address]. [place], [place] [address] [place] [address] Care Team Providers Care Fleet Maintenance Manager Name Role Phone Tony Lagn MD Primary Care Provider Tony Lang MD Primary Care Provider Tony Lang MD Primary Care Provider Mimi Carrillo MD Primary Care Provider [phone] Tony Lang MD Primary Care Provider Jeff Sanford MD Primary Care Provider Unavailable Tony Lang MD Primary Care Provider Tony Lang MD Primary Care Provider Tony Lang MD Primary Care Provider Encounter Details Date Type Department Care Team (Late st Contact Info) Description 06/02/2015 Abstract [facility] Medical Group Family Medicine [address] [address] Tony Lang MD [address] [place] [address] Social History Tobacco Use Types Packs/Day Years Used Date Smoking Tobacco: Never Assessed Comments Unknown Sex and Gender Information Value Date Recorded Sex Assigned at Not on file 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 Gender Identity Not on file Sexual Orientation Not on file documented as of this encounter Last Filed Vital Signs Vital Sign Reading Time Taken Comments Blood Pressure 107/74 06/02/2015 7:35 AM SOUP MIXER Pulse 85 06/02/2015 7:35 AM SOUP MIXER Temperature - - Respiratory Rate - - Oxygen Saturation - - Inhaled Oxygen Concentration - - Weight 87.1 kg (192 lb) 06/02/2015 7:35 AM SOUP MIXER Height 154.9 cm (5' 1 ) 06/02/2015 7:35 AM SOUP MIXER Body Mass Index 36.28 06/02/2015 7:35 AM SOUP MIXER documented in this encounter Progress Notes * Tony Lang MD - 06/02/2015 7:30 AM CST Reason For Visit Acute Visit History of Present Illness HPI Free Text: Pt c/o 3-4 days of dysuria, frequency. No fever, no back pain. Due to start menses this week. No n/v. Also with c/o liam ear pain for 5 days or so. Hx of frequent OM in past. No URI sx. No cough or ST. No wheezing. Also concern for possible sugar abnl. Has fhx of DM in mother and father. Has felt shaky a few times in last month. Used parents device (glucometer) to check sugars-- she states she is usually running 110-120s...few lower readings to 80s. Review of Systems See HPI for pertinent positives. Constitutional: no fever, not feeling poorly and not feeling tired. Cardiovascular: Normal. Respiratory: Normal. Gastrointestinal: Normal. Genitourinary: Normal. Integumentary: Normal. Musculoskeletal: Normal. Neurological: Normal. Psychiatric: Normal. Active Problems 1. Allergic rhinitis (477.9) (J30.9) 2. Amenorrhea (626.0) (N91.2) 3. Breast pain (611.71) (N64.4) 4. Carpal tunnel syndrome (354.0) (G56.00) 5. Cough variant asthma (493.82) (J45.991) 6. Fibromyalgia (729.1) (M79.7) 7. IBS (irritable bowel syndrome) (564.1) (K58.9) 8. Piriformis syndrome (355.0) (G57.00) 9. Seborrheic dermatitis (690.10) (L21.9) Past Medical History [...] TABLET AT BEDTIME; Therapy: 21Sep2014 to (Last Rx:[id number]) Requested for: [id number] Ordered 2. Naproxen 500 MG Oral Tablet; TAKE 1 TABLET BY MOUTH TWICE DAILY; Therapy: 21Sep2014 to (Evaluate:[id number]) Requested for: 01Thg8205; Last Rx:[id number] Ordered 3. Selenium Sulfide 2.5 % External Lotion; Apply to affected areas and lather with small amount of water. Leave on your skin for 10 minutes. Rinse it off; Therapy: 93Anl5385 to (Last Rx:[id number]) Requested for: 66Xgs3697 Ordered 4. Triamcinolone Acetonide 0.1 % External Ointment; APPLY SPARINGLY TO AFFECTED AREA(S) TWICE DAILY; Therapy: 35Bmt1557 to (Last Rx:[id number]) Requested for: 21Sep2014 Ordered Allergies 1. Isabel Vitals Recorded: 02Jun2015 07:35AM Heart Rate 85 Respiration 16 Blood Pressure 74 mm Hg 107 mm Hg O2 Saturation 95 Height 5 ft 1 in Weight 192 lb BMI Calculated 36.28 kg/m2 BSA Calculated 1.86 m2 Physical Exam Constitutional: awake, alert, no acute distress. Head: head normal, no maxillary sinus tenderness. Ears: TM's normal, EAC normal. Nose: no erythema, no discharge. Neck: no adenopathy, thyroid not enlarged, no thyroid nodules. Cardiovascular: RRR, normal S1/S2, no murmurs, no gallops. Respiratory: CTAB, no wheezing, no rhonchi, no crackles/rhales. no CVA tenderness Results/Data *Urine dip auto In Office 02Jun2015 07:29AM Tony Lang Test Name Result Flag Reference Color Yellow Clarity Slightly cloudy A Glucose Negative Bilirubin Negative Ketones Negative Specific Dresher 1.030 A Blood 2+(Moderate) A pH 5.5 5.0 - 7.0 Protein Negative Urobilinogen 0.2 E.U./dL Nitrites Neg Leukocytes Trace A Counseling The patient was counseled regarding diagnostic results, patient and family education, impressions and importance of compliance with treatment. 15 minutes was spent counseling. Assessment 1. Acute UTI (599.0) (N39.0) 2. Abnormal glucose (790.29) (R73.09) 3. Ear pain (388.70) (H92.09) UTI - routine precautions/education. Bactrim bid x 3-5 days depending on persistence of sx. Ear pain - normal exam...reassurance...f/u worsening sx abnormal glucose - aic 5.2% reassurance to patient...routine diet/exercise Plan Abnormal glucose 1. *A1C In Office; Status:Active; Requested for:02Jun2015; Perform:In Office; Due:02Jul2015;Ordered; For:Abnormal glucose; Ordered By:Tony Lang; Acute UTI 2. Sulfamethoxazole-Trimethoprim 800-160 MG Oral Tablet; TAKE 1 TABLET TWICE DAILY Rx By: Tony Lang; Dispense: 5 Days ; #:10 Tablet; Refill: 0; For: Acute UTI; EDWARD = N; VerifiedTransmission to [facility] 29124; Last Updated By: Zhao Brown; 06/02/2015 7:45:39 AM UTI symptoms 3. *Urine dip auto In Office; Status:Resulted - Requires Verification; Done: 02Jun2015 07:29AM Performed:In Office; Due:02Jul2015; Last Updated By:Natalie Arroyo; 06/02/2015 7:30:50 AM;Ordered; For:UTI symptoms; Ordered By:Tony Lang; 4. Urine Culture; Status:In Progress - Specimen/Data Collected; Done: 02Jun2015 Perform: [facility]; Due:02Jul2015; Last Updated By:Natalie Arroyo; 06/02/2015 7:32:10 AM;Ordered; For:UTI symptoms; Ordered By:Tony Lang; Source: : [facility] Signatures Electronically signed by : Tony Lang M.D.; Jun 02 2015 7:57AM SOUP MIXER (Author) documented in this encounter Plan of Treatment Not on file documented as of this encounter Procedures Procedure Name Priority Date/Time Associated Diagnosis Comments HEMOGLOBIN, GLYCOSYLATED Routine 06/02/2015 7:50 AM SOUP MIXER URINE BACTERIA CULTURE Routine 06/02/2015 7:32 AM SOUP MIXER URINALYSIS AUTO DIP Routine 06/02/2015 7 :29 AM SOUP MIXER documented in this encounter Results * HEMOGLOBIN, GLYCOSYLATED (06/02/2015 7:50 AM SOUP MIXER) HGB A1C 5.2 4.2% - 6.5% [facility] TO EPIC CONVERSION 06/02/2015 7:50 AM SOUP MIXER 06/02/2015 7:50 AM SOUP MIXER Narrative [facility] TO EPIC CONVERSION - 06/02/2015 7:50 AM SOUP MIXER Result Communication: No patient communication needed at this time us Tony Lang MD LABORATORY Final Result [facility] TO EPIC CONVERSION * CULTURE URINE (06/02/2015 7:32 AM SOUP MIXER) CULTURE URINE SPECIMEN DESCRIPTION ? - URINE CLEAN CATCH SPECIAL REQUESTS ? - NO SPECIAL REQUEST CULTURE ?- NO GROWTH 2 DAYS REPORT STATUS ?- FINAL 06/04/2015 [facility] TO EPIC CONVERSION 06/02/2015 7:32 AM SOUP MIXER 06/02/2015 7:32 AM SOUP MIXER Narrative [facility] TO EPIC CONVERSION - 06/04/2015 8:31 AM SOUP MIXER Result Communication: No patient communication needed at this time us Tony Lang MD MICROBIOLOGY - GENERAL ORDERABL ES Final Result Performing Organization Address City/[facility] Co de Phone Number [facility] TO EPIC CONVERSION * (ABNORMAL) URINALYSIS AUTO DIP (06/02/2015 7:29 AM SOUP MIXER) COLOR (U) Yellow [facility] T O EPIC CONVERSION TRANSPARENCY Slightly cloudy(A) [facility] TO EPIC CONVERSION GLUCOSE Negative [facility] T O EPIC CONVERSION BILIRUBIN (U) Negative [facility] UP TO EPIC CONVERSION KETONE (U) Negative [facility] TO EPIC CONVERSION SPECIFIC GRAVITY (U) 1.030(A) [facility] TO EPIC CONVERSION BLOOD (U) 2+(Moderate) (A) [facility] TO EPIC CONVERSION PH (U) 5.5 5.0 - 7.0 [facility] T O EPIC CONVERSION PROTEIN (ELP) (U) Negative [facility] TO EPIC CONVERSION UROBILINOGEN 0.2 E.U./dL [facility] OUP TO EPIC CONVERSION NITRITES Neg [facility] T O EPIC CONVERSION LEUKOCYTES (U) Trace(A) [facility] OUP TO EPIC CONVERSION 06/02/2015 7:29 AM SOUP MIXER 06/02/2015 7:29 AM SOUP MIXER Narrative [facility] TO EPIC CONVERSION - 06/02/2015 7:29 AM SOUP MIXER Result Communication: No patient communication needed at this time us Tony Lang MD URINE ORDERABLES Final Result Performing Organization Address City/[facility] Co de Phone Number [facility] TO EPIC CONVERSION documented in this encounter Visit Diagnoses Not on filedocumented in this encounter Care Teams Fleet Maintenance Manager Relationship Specialty Start Date End Date Tony Lang MD [address] [place], [place] [id number] PCP - General 08/06/16 07/23/18 Tony Lang MD [address] [place], [place] [id number] PCP - General 07/30/16 08/05/16 Tony Lang MD [address] [place], [place] [id number] PCP - General 07/05/16 07/29/16 Mimi Carrillo MD [address], [place] [address] PCP - General 07/04/16 07/04/16 Tony Lang MD [address] [place], [place] [id number] PCP - General 03/26/16 07/03/16 Jeff Sanford MD PCP - General 03/21/1603/25 Tony Lang MD [address] [place], [place] [id number] PCP - General 03/12/16 03/20/16 Tony Lang MD [address] [place], [place] [id number] PCP - General 08/29/15 03/11/16 Tony Lang MD [address] [place], [place] [id number] PCP - General 06/02/15 08/28/15 documented as of this encounter
--- OUTSIDE RECORDS SUMMARY | 2024-05-29 15:44 | XMS_ITS | Encounter Summary ---
Author Organization [facility] Address [address] [place] [address]. [place], [place] [address] [place] [address] Care Team Providers Care Area Counselor Name Role Phone Tony Lang MD Primary Care Provider Tony Lang MD Primary Care Provider Tony Lang MD Primary Care Provider Mimi Carrillo MD Primary Care Provider [phone] Tony Lang MD Primary Care Provider Jeff Sanford MD Primary Care Provider Unavailable Tony Lang MD Primary Care Provider Tony Lang MD Primary Care Provider Encounter Details Date Type Department Care Team (Late st Contact Info) Description 09/06/2015 Abstract [facility] Medical Group Family Medicine [address] [address] Tony Lang MD [address] [place] [address] Social History Tobacco Use Types Packs/Day Years Used Date Smoking Tobacco: Never Assessed Comments Unknown Sex and Gender Information Value Date Recorded Sex Assigned at Not on file 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 Gender Identity Not on file Sexual Orientation Not on file documented as of this encounter Last Filed Vital Signs Vital Sign Reading Time Taken Comments Blood Pressure 110/78 09/06/2015 8:49 AM CDT Pulse 90 09/06/2015 8:49 AM CDT Temperature - - Respiratory Rate - - Oxygen Saturation - - Inhaled Oxygen Concentration - - Weight 87.1 kg (192 lb) 09/06/2015 8:49 AM CDT Height 154.9 cm (5' 1 ) 09/06/2015 8:49 AM CDT Body Mass Index 36.28 09/06/2015 8:49 AM CDT documented in this encounter Progress Notes * Tony Lang MD - 09/06/2015 8:45 AM CDT Reason For Visit Chronic Recheck Visit Chief Complaint Patient presents for f/u exam. Sore throat. History of Present Illness HPI Free Text: Patient presents for f/u exam. Sore throat. patient here for followup today after visiting the emergency room this weekend for sore throat. Symptoms of throat pain, fever, difficulty swallowing started 4 days ago. She went to the emergency room/urgent care 3 days ago and was diagnosed with strep throat and started on amoxicillin. She has nowhad 2 days of amoxicillin. Throat pain is still her main symptom of concern right now she is no longer having fevers. Difficult for her to swallow food, but no voice changes. Keeping up with p.o. fluids really well. recent sick contact with /partner although he did not test positive for strep last week Review of Systems See HPI for pertinent positives. Constitutional: feeling poorly and feeling tired. ENT: sore throat. Cardiovascular: Normal. Respiratory: Normal. Gastrointestinal: Normal. Genitourinary: [...] (R10.9) 11. Seborrheic dermatitis (690.10) (L21.9) 12. Vitamin [...] Tablet; TAKE 1 TABLET AT BEDTIME; Therapy: 21Yqa1692 to (Last Rx:[id number]) Requested for: 51Iif3362 Ordered 2. Naproxen 500 MG Oral Tablet; TAKE 1 TABLET BY MOUTH TWICE DAILY; Therapy: 83Voy5255 to (Evaluate:09Wyy0532) Requested for: 97Jtq0407; Last Rx:[id number] Ordered 3. Selenium Sulfide 2.5 % External Lotion; Apply to affected areas and lather with small amount of water. Leave on your skin for 10 minutes. Rinse it off; Therapy: 62Baf9241 to (Last Rx:[id number]) Requested for: 19Jyu1860 Ordered 4. Sulfamethoxazole-Trimethoprim 800-160 MG Oral Tablet; TAKE 1 TABLET TWICE DAILY; Therapy: 08Erj1167 to (Evaluate:81Xkl0208) Requested for: 01Bxy6775; Last Rx:[id number] Ordered 5. Triamcinolone Acetonide 0.1 % External Ointment; APPLY SPARINGLY TO AFFECTED AREA(S) TWICE DAILY; Therapy: 65Apl1561 to (Last Rx:[id number]) Requested for: 34Pqr6540 Ordered 6. Vitamin D (Ergocalciferol) 31190 UNIT Oral Capsule; TAKE 1 CAPSULE WEEKLY; Therapy: 01Sep2015 to (Last Rx:01Sep2015) Requested for: 01Sep2015 Ordered Allergies 1. Lodine Vitals Recorded: 06Sep2015 08:49AM Temperature 98.2 F Heart Rate 90 Respiration 18 Systolic 110 Diastolic 78 O2 Saturation 95 Height 5 ft 1 in Weight 192 lb BMI Calculated 36.28 BSA Calculated 1.86 LMP n/a Physical Exam Constitutional: awake, alert, no acute distress. Head: head normal, no maxillary sinus tenderness. Ears: TM's normal, EAC normal. Nose: no erythema, no discharge. Mouth: Oropharynx: The oral mucosa was normal with no lesions. Examination of the palate showed no abnormalities. The tongue was normal. There was enlargement and erythema of both tonsils. The posterior pharyngeal wall was erythematous, but did not have an exudate. The voice was normal. Neck: adenopathy. Cardiovascular: RRR, normal S1/S2, no murmurs, no gallops. Respiratory: CTAB, no wheezing, no rhonchi, no crackles/rhales. Counseling The patient was counseled regarding instructions for management and impressions. total time of encounter was 15 minutes and 10 minutes was spent counseling. Assessment 1. Strep pharyngitis (034.0) (J02.0) pharyngitis: Patient is on appropriate medication therapy at this point. Finish amoxicillin as prescribed, Tylenol/Motrin p.r.n. for pain. Continue good fluid hydration. Advance diet as tolerated. Routine precautions followup urine Signatures Electronically signed by : Tony Lang M.D.; Sep 06 2015 9:46AM LOCOMOTIVE BOILERMAKER (Author) documented in this encounter Plan of Treatment Not on file documented as of this encounter Visit Diagnoses Not on filedocumented in this encounter Care Teams Area Counselor Relationship Specialty Start Date End Date Tony Lang MD [address] [place], [place] [id number] PCP - General 08/06/16 07/23/18 Tony Lang MD [address] [place], [place] [id number] PCP - General 07/30/16 08/05/16 Tony Lang MD [address] [place], [place] [id number] PCP - General 07/05/16 07/29/16 Mimi Carrillo MD [address] [place], [place] [id number] PCP - General 07/04/16 07/04/16 Tony Lang MD [address] [place], [place] [id number] PCP - General 03/26/16 07/03/16 Jeff Sanford MD PCP - General 03/21/1603/25 Tony Lang MD [address] [place], [place] [id number] PCP - General 03/12/16 03/20/16 Tony Lang MD [address] [place], [place] [address]069 PCP - General 08/29/15 03/11/16 documented as of this encounter
--- OUTSIDE RECORDS SUMMARY | 2024-05-29 15:44 | XMS_ITS | Encounter Summary ---
Author Organization [facility] Address [facility] [facility]. [place], [place] [address] [place] [id number] Care Team Providers Care Restorer Paper And Prints Name Role Phone Tony Lang MD Primary Care Provider [phone] Tony Lang MD Primary Care Provider [phone] Tony Lang MD Primary Care Provider [phone] Jack Neely MD Primary Care Provider Tony Lang MD Primary Care Provider [phone] Jeff aSnford MD Primary Care Provider Unavailable Encounter Details Date Type Department Care Team (Latest Contact Info) Description 03/21/2016 Abstract [facility] Jack Neely MD [facility] [place] [address] Social History Tobacco Use Types Packs/Day Years Used Date Smoking Tobacco: Never Assessed Comments Unknown Sex and Gender Information Value Date Recorded Sex Assigned at Not on file 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 ADMIT/SERVICE DATE: 03/21/16 ?? ACCT: [id number] ?DISCHARGE DATE: ?? : 1980 ??SEX: F ?ORD SITE: [facility] ?? PT TYPE: REG CLI ? ORDERING MD: JACK NEELY MD ? STUDY DATE ? REPORT # ?ORDER # ? EXT ORDER ID ?? 03/21/16 ? [id number] ? [id number] ?[id number] ? PROC CODE: ? [id number] ? PROCEDURE DESCRIPTION: ?? US PELVIS NON OB COMPLETE ? IMPRESSION: ?? 1. NORMAL THICKNESS OF THE ENDOMETRIUM. FLUID IN THE ENDOMETRIAL CAVITY, ?? LIKELY BLOOD PRODUCTS. ?? 2. THICK-WALLED CYST RIGHT ADNEXA WITH INTERNAL ECHOES AND PROMINENT ?? BLOOD FLOW IN THE CHEUNG. LIKELY HEMORRHAGIC CYST OR CORPUS LUTEUM CYST. ?? THIS MEASURES UP TO 1.7 CM. ?? 3. FOLLICLE CYSTS LEFT OVARY. ?? 4. NO OVARIAN TORSION. ? EXAMINATION: ULTRASOUND PELVIS NON-OB. TRANSABDOMINAL AND TRANSVAGINAL ?? IMAGING. SPECTRAL ANALYSIS. ? EXAM DATE/TIME: 03/21/2016 9:38 AM ? CLINICAL HISTORY: 35 YEARS FEMALE WITH HISTORY OF DYSFUNCTIONAL UTERINE ?? BLEEDING. HEAVY BLEEDING. PASSING BLOOD CLOTS. RIGHT LOWER QUADRANT ?? CRAMPING ABDOMINAL PAIN. RIGHT PELVIC PAIN. ? COMPARISON: NONE ? TECHNIQUE: ULTRASOUND EXAMINATION OF THE PELVIS WAS PERFORMED UTILIZING ?? TRANSABDOMINAL AND TRANSVAGINAL APPROACH TO ASSESS GRAYSCALE APPEARANCE, ?? COLOR DOPPLER FLOW, AND SPECTRAL WAVEFORM CHARACTERISTICS. ? FINDINGS: ?? UTERUS: 9.1 CM IN LENGTH. ??NO MYOMETRIAL MASS. ? ENDOMETRIAL STRIPE: 8.6 MM IN THICKNESS. FLUID IN THE ENDOMETRIAL ?? CAVITY. LIKELY BLOOD PRODUCTS. ?? CERVIX: ??SMALL CERVICAL CYST. ? RIGHT OVARY: 3.4 X 2.9 X 2.5 CM. CM. THICK-WALLED CYST RIGHT OVARY WITH ?? BLOOD FLOW IN THE PERIPHERY. THIS MEASURES UP TO 1.7 CM. LIKELY ?? HEMORRHAGIC CYST. BLOOD FLOW DETECTED RIGHT OVARY. ?? LEFT OVARY: 2.6 X 2.5 X 2.3 CM. FOLLICLE CYSTS LEFT OVARY. BLOOD FLOW ?? DETECTED LEFT OVARY ON SPECTRAL ANALYSIS. ? OTHER FINDINGS: NO FREE FLUID. ?? VISIBLE BLADDER NOT ADEQUATELY DISTENDED. ? ELECTRONICALLY SIGNED BY: BETTIE MARTÍNEZ03/21/2016 1:30 PM ? Procedure Note Jeff Sanford MD - 04/03/2018 FRANCISCO YAP ADMIT/SERVICE DATE:03/21/16 ACCT: [id number] DISCHARGE DATE: : 1980 SEX: F ORD [facility] PT TYPE: REG CLI ORDERING MD:JACK NEELY MD STUDY DATE REPORT # ORDER # EXT ORDER ID 03/21/16 [id number] [facility]: [id number] PROCEDURE DESCRIPTION: US PELVIS NON OB COMPLETE [...] ELECTRONICALLY SIGNED BY: BETTIE MARTÍNEZ03/21/2016 1:30 PM Jack Neely MD SCANNING Final Result documented in this encounter Visit Diagnoses Not on filedocumented in this encounter Care Teams Restorer Paper And Prints Relationship Specialty Start Date End Date Tony Lang MD [address] [place] [address] PCP - General 08/06/16 07/23/18 Tony [place] [address] PCP - General 07/30/16 08/05/16 Tony Lang MD [address] [place] [address] [place] [address] PCP - General 07/05/16 07/29/16 Jack Neely MD [address] [place] [address] [place] [address] PCP - General 07/04/16 07/04/16 Tony Lang MD [address] [place] [address] [place] [address] PCP - General 03/26/16 07/03/16 Jeff Sanford MD PCP - General 03/21/1603/25 documented as of this encounter
--- OUTSIDE RECORDS SUMMARY | 2024-05-29 15:44 | XMS_ITS | Encounter Summary ---
Author Organization [facility] Address [facility]. 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 Gender Identity Not on file Sexual Orientation Not on file documented as of this encounter Last Filed Vital Signs Vital Sign Reading Time Taken Comments Blood Pressure 114/71 04/09/2014 7:02 AM CDT Pulse 88 04/09/2014 7:02 AM CDT Temperature - - Respiratory Rate - - Oxygen Saturation - - Inhaled Oxygen Concentration - - Weight 87.5 kg (193 lb) 04/09/2014 7:02 AM CDT Height 154.9 cm (5' 1 ) 04/09/2014 7:02 AM CDT Body Mass Index 36.47 04/09/2014 7:02 AM CDT documented in this encounter Progress Notes * Tony Lang MD - 04/09/2014 7:00 AM CDT Reason For Visit Reason For Visit: Acute Visit Chief Complaint 1. Hand Problem Patient c/o liam thumb pain. Onset 1 week ago History of Present Illness Patient c/o liam thumb pain, onset 1 week ago. She describes the pain as sharp, and dull. Denies anyradiation. The patient is being seen for an initial evaluation of finger pain. Symptoms: finger pain, finger tenderness, difficulty flexing the finger and difficulty extending the finger. The patient is currently experiencing symptoms. No associated symptoms are reported. 1-2 weeks of of liam thumb pain , worse with gripping activities. No trauma. No prior injury. No swelling or erythema. No inciting event or incident. No prior hx of CTS. NO prior surgery or injection. No fever or constitutional symptoms. No hx of rheum d/o other than possible fibromyalgia. Not dropping things but finding it more difficult to do hand manipulations. Review of Systems Constitutional: Normal. ENT: normal. Cardiovascular: Normal. Respiratory: Normal. Gastrointestinal: Normal. Genitourinary: Normal. Integumentary: Normal. Musculoskeletal: Normal. Neurological: Normal. Psychiatric: Normal. Other Symptoms: Hand pain. Active Problems 1. Abdominal pain (789.00) (R10.9) 2. Amenorrhea (626.0) (N91.2) 3. Body odor (705.89) (L74.8) 4. Fibromyalgia (729.1) (M79.7) 5. IBS (irritable [...] N; Record; Last Updated By: Adilene Ortega; 04/09/2014 7:30:07 AM Allergies 1. Lodine Recorded By: Adilene Ortega; 02/18/2014 10:18:29 AM Vitals Vital Signs [Data Includes: Current Encounter] Recorded by : Adilene Ortega at 09Apr2014 07:02AM Temperature 98 F Heart Rate 88 Respiration 16 Systolic 114 Diastolic 71 O2 Saturation 98 Height 5 ft 1 in Weight 193 lb BMI Calculated 36.47 BSA Calculated 1.86 LMP n/a Physical Exam Right First Digit/Hand: Appearance: Normal. Tenderness: diffuse dorsal aspect of the hand. Mild. ROM: Full. Strength: Normal. Special Tests: negative IP joint radial laxity testing, negative IP jointulnar laxity testing and negative UCL laxity testing. Left First Digit: Appearance: Normal no Trigger finger 1st digit. Tenderness: None except the radial dorsal hand. Mild. ROM: Full. Normal SpecialTests: negative IP joint radial laxity testing, negative IP joint ulnar laxity testing and no UCL laxity. Left Hand: Appearance: Normal. Fingernail Tenderness: None. Right Hand: Appearance: Normal. Fingernail Right Wrist: Tenderness: None. ROM: Full. Motor: Normal. Special Tests: equivocal Kristian's test and positive Phalen's test, but negative Tinel's sign at the carpal tunnel. Left Wrist: Appearance: Normal. Tenderness: None. ROM: Full. Motor: Normal. Special Tests: equivocal Kristian's Test and positive Tinel's Sign over the carpal tunnel, but negative Phalen's Test. Assessment 1. Carpal tunnel syndrome (354.0) (G56.00) thumb pain - possible CTS equivilent. Trial of braces, naprosyn and stretching program. F/U in 2-3 weeks if not improving Plan Carpal tunnel syndrome 1. Start: Naproxen 500 MG Oral Tablet; TAKE 1 TABLET EVERY 12 HOURS NEEDED Rx By: Tony Lang; Dispense: 30 Days ; #:60 Tablet; Refill: 0; For: Carpal tunnel syndrome; EDWARD = N; Verified Transmission to [facility] [id number]; Last Updated By: Zhao Brown; 04/09/2014 7:31:13 AM Signatures Electronically signed by : Tony Lang M.D.; Apr 09 2014 9:56AM LIVESTOCK PRODUCER (Author) documented in this encounter Plan of Treatment Not on file documented as of this encounter Visit Diagnoses Not on filedocumented in this encounter Care Teams Hosting Engineer Relationship Specialty Start Date End Date Tony [place] [address] PCP - General 08/06/16 07/23/18 Tony Lang MD [address] [place], [place] [address] PCP - General 07/30/16 08/05/16 Tony Lang MD [address] [place], [place] [id number] PCP - General 07/05/16 07/29/16 Mimi Carrillo MD [address] [place], [place] [address] PCP - General 07/04/16 07/04/16 Tony Lang MD [address] [place] [address] PCP - General 03/26/16 07/03/16 Jeff Sanford MD PCP - General 03/21/1603/25 Tony Lang MD [address] [place], [place] [id number] PCP - General 03/12/16 03/20/16 Tony Lang MD [address] [place] [address] PCP - General 08/29/15 03/11/16 Tony Lang MD [address] [place] [address] PCP - General 06/02/15 08/28/15 Tony Lang MD [address] [place] [address] PCP - General 01/13/15 06/01/15 Tony Lang MD [address] [place] [address] PCP - General 01/11/15 01/12/15 Tony Lang MD [address] [place] [address] PCP - General 01/06/15 01/10/15 Tony Lang MD [address] [place] [address] PCP - General 01/04/15 01/05/15 Tony Lang MD [address] [place] [address] PCP - General 12/30/14 01/03/15 Tony Lang MD [address] [place] [address] PCP - General 12/28/14 12/29/14 documented as of this encounter
--- OUTSIDE RECORDS SUMMARY | 2024-05-29 15:44 | XMS_ITS | Encounter Summary ---
Author Organization [facility] Address [address] [place] [address]. [place], [place] [address] [place] [address] Care Team Providers Care Moving Worker Name Role Phone Tony Lang MD Primary Care Provider Tony Lang MD Primary Care Provider Tony Lang MD Primary Care Provider Mimi Carrillo MD Primary Care Provider [phone] Tony Lang MD Primary Care Provider Jeff Sanford MD Primary Care Provider Unavailable Tony Lang MD Primary Care Provider Tony Lang MD Primary Care Provider Encounter Details Date Type Department Care Team (Late st Contact Info) Description 08/29/2015 Abstract [facility] Family Medicine [address] [phone] Tony Lang MD [address] [place] [address] Social History Tobacco Use Types Packs/Day Years Used Date Smoking Tobacco: Never Assessed Comments Unknown Sex and Gender Information Value Date Recorded Sex Assigned at Not on file Legal 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 Gender Identity Not on file Sexual Orientation Not on file documented as of this encounter Last Filed Vital Signs Vital Sign Reading Time Taken Comments Blood Pressure 110/70 08/29/2015 9:42 AM CDT Pulse 87 08/29/2015 9:42 AM CDT Temperature - - Respiratory Rate - - Oxygen Saturation - - Inhaled Oxygen Concentration - - Weight 87.1 kg (192 lb) 08/29/2015 9:42 AM CDT Height 154.9 cm (5' 1 ) 08/29/2015 9:42 AM CDT Body Mass Index 36.28 08/29/2015 9:42 AM CDT documented in this encounter Progress Notes * Tony Lang MD - 08/29/2015 9:30 AM CDT Reason For Visit Chronic Recheck Visit Chief Complaint Patient presents for multiple complaints. History of Present Illness HPI Free Text: Patient presents for multiple complaints. patient presents with complaint of irregular menses since middle of July. she reports having her menses mid July, that at the beginning of August, and she is about ready to start again. Prior to July she had been having menses regularly every month. No additional medications have been started, nor has she started any ifts-faf-ufommbe supplements. There is been no change in her exercise/activity level. patient denies dysuria, blood in urine, however she does have some mild right flankpain. Patient has history of abnormal menses in previous years and has been diagnosed with ovarian cyst in previous years. She has been treated with OCPs in the past. She has had a tubal 2 years ago after the of her child and has not been on OCPs since then. the other symptom of concern she has is difficulty falling asleep due to restlessness in her legs and the need to move or get up and walk without sensation. She has never had restless legs in the past although she does report a history of anemia in the past. past. Review of Systems See HPI for pertinent [...] Tablet; TAKE 1 TABLET AT BEDTIME; Therapy: 33Gzu9101 to (Last Rx:[id number]) Requested for: 12Ivi1225 Ordered 2. Naproxen 500 MG Oral Tablet; TAKE 1 TABLET BY MOUTH TWICE DAILY; Therapy: 09Krq7148 to (Evaluate:35Pen7219) Requested for: 62Kac2716; Last Rx:[id number] Ordered 3. Selenium Sulfide 2.5 % External Lotion; Apply to affected areas and lather with small amount of water. Leave on your skin for 10 minutes. Rinse it off; Therapy: 36Ucz1666 to (Last Rx:44Gwz7981) Requested for: 66Cim4594 Ordered 4. Sulfamethoxazole-Trimethoprim 800-160 MG Oral Tablet; TAKE 1 TABLET TWICE DAILY; Therapy: 05Rdm0426 to (Evaluate:80Rga6525) Requested for: 94Fan4375; Last Rx:[id number] Ordered 5. Triamcinolone Acetonide 0.1 % External Ointment; APPLY SPARINGLY TO AFFECTED AREA(S) TWICE DAILY; Therapy: 38Llj1588 to (Last Rx:[id number]) Requested for: 42Hnf2075 Ordered Allergies 1. Isabel Vitals Recorded: 29Aug2015 09:42AM Temperature 98 F Heart Rate 87 Respiration 16 Systolic 110 Diastolic 70 O2 Saturation 99 Height 5 ft 1 in Weight 192 lb BMI Calculated 36.28 BSA Calculated 1.86 LMP 15Aug2015 Physical Exam Constitutional: awake, alert, no acute distress. Neck: no adenopathy, thyroid not enlarged, no thyroid nodules. Cardiovascular: RRR, normal S1/S2, no murmurs, no gallops. Respiratory: CTAB, no wheezing, no rhonchi, no crackles/rhales. Abdomen: mild right flank pain to palpation and soft, nontender, no hepatosplenomegaly. Neurlogical: cranial nerves intact, normal sensation, normal strength. Psychiatric: Mental status:. the patient's orientation, memory, attention, language and fund of knowledge were normal. Observed mood and affect: appropriate. Results/Data *A1C In Office 02Jun2015 07:50AM Tony Lang Test Name Result Flag Reference A1C 5.2 4.2% - 6.5% Counseling The patient was counseled regarding instructions for management, risk factor reductions and impressions. total time of encounter was 25 minutes and 15 minutes was spent counseling. Assessment 1. Irregular menses (626.4) (N92.6) 2. Right flank pain (789.09) (R10.9) 3. Restless legs syndrome (333.94) (G25.81) irregular menses/ruth metrorrhagia: this is a fairly recent and of short duration so may be within normal limits for the patient. We'll continue to monitor and check menses.. I would like to get somebaseline tests however to include TSH, CBC, iron levels, vitamin levels. Also check a UA given her recent history of flank pain as well. Follow up with her on these lab tests in about a week or 2 if they are normal will just continue to monitor her menstrual cycles. If she continues to have menometrorrhagia over the next 2-3 months and if there is no lab abnormalities and we'll consider cycling her with oral control pills. Restless leg: Prior to any treatment for this we'll check the labs as I detailed above. We'll follow up with her in one to 2 weeks in the labs and determine if we want to treat his condition. Plan Irregular menses 1. CBC W Differential; Status:Hold For - Manual Activation; Requested for:29Aug2015; [facility]; Due:28Sep2015;Ordered; For:Irregular menses; Ordered By:Tony Lang; 2. Iron Profile W TIBC; Status:Hold For - Manual Activation; Requested for:29Aug2015; Perform:[facility]; Due:28Sep2015;Ordered; For:Irregular menses; Ordered By:Tony Lang; 3. TSH W Reflex Free T4; Status:Hold For - Manual Activation; Requested for:29Aug2015; [facility]; Due:28Sep2015;Ordered; For:Irregular menses; Ordered By:Tony Lang; 4. Vitamin B12 And Folate; Status:Hold For - Manual Activation; Requested for:29Aug2015; Perform:[facility]; Due:86Mfc1722;Ordered; For:Irregular menses; Ordered By:Tony Lang; 5. Vitamin D 25 - Hydroxy; Status:Hold For - Manual Activation; Requested for:29Aug2015; Perform:[facility]; Due:04Boa7429;Ordered; For:Irregular menses; Ordered By:Tony Lang; Right flank pain 6. Urinalysis ( UA ) W Microscopic; Status:Hold For - Manual Activation; Requested for:29Aug2015; Perform:[facility]; Due:91Glv0811;Ordered; For:Right flank pain; Ordered By:Tony Lang; Source: : Clean Catch Signatures Electronically signed by : Tony Lang M.D.; Aug 29 2015 10:00AM KILN REMOVER (Author) documented in this encounter Plan of [...] URINALYSIS, AUTO, COMPLETE (08/29/2015 10:11 AM CDT) SPECIMEN TYPE URINE CLEAN CATCH [facility] TO EPIC CONVERSION COLOR (U) YELLOW [facility] T O EPIC CONVERSION TRANSPARENCY CLOUDY [facility] P TO EPIC CONVERSION U PH 5.0 5.0 - 9.0 [facility] T O EPIC CONVERSION SPECIFIC GRAVITY (U) 1.024 1.001 - 1.030 [facility] TO EPIC CONVERSION PROTEIN (U) NEGATIVE <30 MG/DL [facility] TO EPIC CONVERSION GLUCOSE NEGATIVE NEG MG/DL [facility] T O EPIC CONVERSION KETONES MG/DL (U) NEGATIVE NEG MG/DL [facility] TO EPIC CONVERSION BLOOD (U) SMALL(A) NEG [facility] T O EPIC CONVERSION NITRITES NEGATIVE NEG [facility] T O EPIC CONVERSION BILIRUBIN (U) NEGATIVE NEG MG/DL [facility] UP TO EPIC CONVERSION UROBILINOGEN NEGATIVE NEG MG/DL [facility] P TO EPIC CONVERSION LEUKOCYTES (U) NEGATIVE NEG [facility] OUP TO EPIC CONVERSION RBC/HPF <1 <6 /HPF [facility] T O EPIC CONVERSION WBC <1 <6 /HPF [facility] T O EPIC CONVERSION SQUAMOUS EPITHELIALS MODERATE /LPF [facility] TO EPIC CONVERSION TRANSITIONAL EPI RARE /HPF [facility] TO EPIC CONVERSION CA OXALATE CRYSTALS RARE /HPF [facility] TO EPIC CONVERSION MUCUS FEW /LPF [facility] T O EPIC CONVERSION 08/29/2015 10:1 1 AM CDT 08/29/2015 10:11 AM CDT Narrative [facility] TO EPIC CONVERSION - 08/29/2015 10:25 PM CDT 01Sep2015 4:57PM by Tony Lang: ??attached are the recent labs that we discussed in the clinic. ??tHe only had them out he was a vitamin D level being low--I will order the vitamin D to pharmacy for you in the 50,000 units one tablet weekly Best regards, Dr. Lang Result Communication: Discussed results with patient, Mail Results to Patient us Tony Lang MD URINE ORDERABLES Final Result Performing Organization Address [facility] de Phone Number [facility] TO EPIC CONVERSION * TSH W/REFLEX (SNS) (08/29/2015 10:11 AM CDT) TSH 0.78 0.27 - 4.20 mIU/mL [facility] TO EPIC CONVERSION Comment:Result Comment: FREE T4 NOT INDICATED 08/29/2015 10:1 1 AM CDT 08/29/2015 10:11 AM CDT Narrative [facility] TO EPIC CONVERSION - 08/29/2015 10:30 PM CDT 01Sep2015 4:57PM by Tony Lang: ??attached are the recent labs that we discussed in the clinic. ??tHe only had them out he was a vitamin D level being low--I will order the vitamin D to pharmacy for you in the 50,000 units one tablet weekly Best regards, Dr. Lang Result Communication: Discussed results with patient, Mail Results to Patient us Tony Lang MD LABORATORY Final Result Performing Organization Address [facility]/ZIP Co de Phone Number [facility] TO EPIC CONVERSION * (ABNORMAL) CBC W/DIFF AUTOMATED (08/29/2015 10:11 AM CDT) WBC 9.5 4.8 - 10.8 X10'3/uL [facility] TO EPIC CONVERSION RBC 4.93 4.20 - 5.40 X10'6/uL [facility] TO EPIC CONVERSION HGB 14.6 12.0 - 16.0 g/dL [facility] TO EPIC CONVERSION HCT 45.0 38.0 - 48.0 % [facility] TO EPIC CONVERSION MCV 91.3 81.0 - 99.0 fL [facility] TO EPIC CONVERSION MCH 29.6 27.0 - 31.0 pg [facility] TO EPIC CONVERSION MCHC 32.4 32.0 - 36.0 g/dL [facility] TO EPIC CONVERSION RDW 13.2 11.5 - 14.5 % [facility] TO EPIC CONVERSION PLT 239 130 - 400 X10'3/uL [facility] TO EPIC CONVERSION GLUCOSE 11.5 9.3 - 12.2 fL [facility] TO EPIC CONVERSION BASOPHILS % 0.5 0.0 - 1.0 % [facility] TO EPIC CONVERSION EOSINOPHILS % 3.9(H) 1.0 - 3.0 % [facility] TO EPIC CONVERSION NEUTROPHILS % 61.2 43.0 - 65.0 % [facility] TO EPIC CONVERSION LYMPHOCYTES % 29.1 20.0 - 46.0 % [facility] TO EPIC CONVERSION MONOCYTES % 5.1 5.0 - 12.0 % [facility] TO EPIC CONVERSION IMMATURE GRANS % 0.2 0.0 - 1.0 % [facility] TO EPIC CONVERSION DIFFERENTIAL TYPE AUTOMATED [facility] TO EPIC CONVERSION 08/29/2015 10:1 1 AM CDT 08/29/2015 10:11 AM CDT Narrative [facility] TO EPIC CONVERSION - 08/29/2015 9:55 PM CDT 01Sep2015 4:57PM by Tony Lang: ??attached are the recent labs that we discussed in the clinic. ??tHe only had them out he was a vitamin D level being low--I will order the vitamin D to pharmacy for you in the 50,000 units one tablet weekly Best regards, Dr. Lang Result Communication: Discussed results with patient, Mail Results to Patient us Tony Lang MD LABORATORY Final Result [facility] TO EPIC CONVERSION * VITAMIN B12 / FOLATE (08/29/2015 10:11 AM CDT) VITAMIN B12 S/P/B 364 211 - 946 pg/mL [facility] TO EPIC CONVERSION FOLATE 8.8 7.3 - 26.1 ng/mL [facility] TO EPIC CONVERSION 08/29/2015 10:1 1 AM CDT 08/29/2015 10:11 AM CDT Narrative [facility] TO EPIC CONVERSION - 08/29/2015 10:31 PM CDT 01Sep2015 4:57PM by Tony Lang: ??attached are the recent labs that we discussed in the clinic. ??tHe only had them out he was a vitamin D level being low--I will order the vitamin D to pharmacy for you in the 50,000 units one tablet weekly Best regards, Dr. Lang Result Communication: Discussed results with patient, Mail Results to Patient Tony Lang MD LABORATORY Final Result Performing Organization Address [facility] de Phone Number [facility] TO EPIC CONVERSION * (ABNORMAL) IRON SATURATION PANEL (08/29/2015 10:11 AM CDT) IRON 51 37 - 145 mcg/dL [facility] TO EPIC CONVERSION IRON BINDING CAPACITY 375 250 - 450 mcg/dL [facility] TO EPIC CONVERSION % IRON SATURATION 14(L) 20 - 55 % [facility] TO EPIC CONVERSION UNBOUND IRON BINDING CAPACITY 324 112 - 360 mcg/dL [facility] TO EPIC CONVERSION 08/29/2015 10:1 1 AM CDT 08/29/2015 10:11 AM CDT Narrative [facility] TO EPIC CONVERSION - 08/29/2015 10:30 PM CDT 01Sep2015 4:57PM by Tony Lang: ??attached are the recent labs that we discussed in the clinic. ??tHe only had them out he was a vitamin D level being low--I will order the vitamin D to pharmacy for you in the 50,000 units one tablet weekly Best regards, Dr. Lang Result Communication: Discussed results with patient, Mail Results to Patient us Tony Lang MD LABORATORY Final Result Performing Organization Address [facility] Co de Phone Number [facility] TO EPIC CONVERSION * (ABNORMAL) VITAMIN D, 25 [place] (08/29/2015 10:11 AM CDT) VITAMIN D 25 HYDROXY S/P/B 18(L) 30 - 100 NG/ML [facility] TO EPIC CONVERSION Comment: Result Comment: ?? SUPPLEMENTING WITH VITAMIN D2 MAY RESULT IN FALSELY LOW RESULTS, CLINICAL CORRELATION NEEDED. ? INTERPRETATION ? DEFICIENT ??<20 ?INSUFFICIENT 20-30 ?SUFFICIENT 30-100 POTENTIAL INTOXICATION ??>100 ? TESTING PERFORMED AT [address] [address] 08/29/2015 10:1 1 AM CDT 08/29/2015 10:11 AM CDT Narrative [facility] TO EPIC CONVERSION - 08/30/2015 6:21 PM CDT 01Sep2015 4:57PM by Tony Lang: ??attached are the recent labs that we discussed in the clinic. ??tHe only had them out he was a vitamin D level being low--I will order the vitamin D to pharmacy for you in the 50,000 units one tablet weekly Best regards, Dr. Lang Result Communication: Discussed results with patient, Mail Results to Patient Tony Lang MD LABORATORY Final Result [facility] TO EPIC CONVERSION documented in this encounter Visit Diagnoses Not on filedocumented in this encounter Care Teams Moving Worker Relationship Specialty Start Date End Date Tony Lang MD [address] [place] [address], [place] [phone] PCP - General 08/06/16 07/23/18 Tony Lang MD [address], [place] [address]759 PCP - General 07/30/16 08/05/16 Tony Lang MD [address], [place] [id number] PCP - General 07/05/16 07/29/16 Mimi Carrillo MD [address], [place] [id number] PCP - General 07/04/16 07/04/16 Tony Lang MD [address], [place] [phone] PCP - General 03/26/16 07/03/16 Jeff Sanford MD PCP - General 03/21/1603/25 Tony Lang MD [address], [place] [id number] PCP - General 03/12/16 03/20/16 Tony Lang MD [address], [place] [id number] PCP - General 08/29/15 03/11/16 documented as of this encounter
--- OUTSIDE RECORDS SUMMARY | 2024-05-29 15:44 | XMS_ITS | Encounter Summary ---
Author Organization [facility] Address Formerly [facility], [facility]. [place], [place] [address] [place] [address] Care Team Providers Care Film Processing Shift Supervisor Name Role Phone Tony Lang MD Primary Care Provider [phone] Tony Lang MD Primary Care Provider [phone] Tony Lang MD Primary Care Provider [phone] Mimi Carrillo MD Primary Care Provider [phone] Tony Lang MD Primary Care Provider [phone] Jeff Sanford MD Primary Care Provider Unavailable Tony Lang MD Primary Care Provider [phone] Tony Lang MD Primary Care Provider [phone] Encounter Details Date Type Department Care Team (Latest Contact Info) Description 09/01/2015 Abstract [facility] Social History Tobacco Use Types Packs/Day Years Used Date Smoking Tobacco: Never Assessed Comments Unknown Sex and Gender Information Value Date Recorded Sex Assigned at Not on file 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 tHe only had them out he was a vitamin D level being low--I will order the vitamin D to pharmacy for you in the 50,000 units one tablet weekly Best regards, Dr. Lang Verified Results CBC W Differential 29Aug2015 10:11AM Tony Lang [...] 30-100 POTENTIAL INTOXICATION >100 TESTING PERFORMED AT [facility] [address] [place] [address] Urinalysis ( UA ) W Microscopic 29Aug2015 10:11AM Tony Lang Test Name Result Flag Reference Specimen Type URINE CLEAN CATCH Urine Color YELLOW Urine Clarity CLOUDY Urine Specific [place] 1.024 1.001-1.030 Urine pH 5.0 5.0-9.0 Urine [...] /HPF <6 Calcium Oxalate Crystal RARE /HPF Plan Vitamin d deficiency ?? Vitamin D (Ergocalciferol) 43159 UNIT Oral Capsule; TAKE 1 CAPSULE WEEKLY Discussion/Summary attached are the recent labs that we discussed in the clinic. tHe only had them out he was a vitamin D level being low--I will order the vitamin D to pharmacy for you in the 50,000 units one tablet weekly Best regards, Dr. Lang documented in this encounter Plan of Treatment Not on file documented as of this encounter Visit Diagnoses Not on filedocumented in this encounter Care Teams Film Processing Shift Supervisor Relationship Specialty Start Date End Date Tony Lang MD [address] [place] [id number] PCP - General 08/06/16 07/23/18 Tony Lang MD [address], [place] [phone] PCP - General 07/30/16 08/05/16 Tony Lang MD [address], [place] [phone] PCP - General 07/05/16 07/29/16 Mimi Carrillo MD [address] [place] [address] PCP - General 07/04/16 07/04/16 Tnoy Lang MD [address] [place] [id number] PCP - General 03/26/16 07/03/16 Jeff Sanford MD PCP - General 03/21/1603/25 Tony Lang MD [address] [place] [address] PCP - General 03/12/16 03/20/16 Tony Lang MD [address] [place] [id number] PCP - General 08/29/15 03/11/16 documented as of this encounter
--- OUTSIDE RECORDS SUMMARY | 2024-05-29 15:49 | XMS_ITS ---
Author Organization [facility] Address [address] [place], [place] [id number] Care Team Providers Care Dredge Master Name Role Phone ALLENAntionette KALPESH Unavailable [phone] Pao Wheeler Unavailable Unavailable Allergies Allergen (clinical drug ingredient) Drug/Non Drug Allergy documented on EMR Reaction Allergy Type Onset Date Status Iodine Unknown Drug Allergy Active REASON FOR VISIT The patient is very happy with how well the topical medication cleared up her fungal skin. The cracks and splits between the toes went away. There is still some scaling, but very mild., She has not had a chance to wear the inserts for her great toe joint pain, as she is in the process of getting new shoes and wants to do this all at once Medications Medication SIG (Take, Route, Frequency, Duration) Notes Start Date End Date Status Clotrimazole-Betamet hasone 1-0.05 % 1 application Externally Twice a day one tube, 30g or similar 04/20/2024 Active Encounters Encounter Location Date Provider Diagnosis [facility] [place] [address] [place], [place] [id number] 05/04/2024 KALPESH CAO Tinea pedis B35.3 ; Hallux rigidus, right foot M20.21 ; Primary osteoarthritis, right ankle and foot M19.071 and Pain in right foot M79.671 Assessments Encounter Date Diagnosis (ICD Code) Assessment Notes Treatment Notes Treatment Clinical Notes Section Notes 05/04/2024 Tinea pedis (ICD-10 - B35.3) Tinea Pedis: Resolved. 05/04/2024 Hallux rigidus, right foot (ICD-10 - M20.21) Hallux Limitus: Discussed various treatments with the patient regarding hallux limitus deformity. Discussed conservative care consisting of padding, wider shoes, anti-inflammatori es, and orthotics. Discussed surgical treatment options and answered all questions about the intra-operative and post-operative treatment course. Patient will obtain supportive shoes and wear her inserts 05/04/2024 Primary osteoarthritis , right ankle and foot (ICD-10 - M19.071) 05/04/2024 Pain in right foot (ICD-10 - M79.671) Plan Of Treatment Treatment Notes Assessment Notes Tinea pedis Tinea Pedis: Resolved. Hallux rigidus, right foot Hallux Limitus: Discussed various treatments with the patient regarding hallux limitus deformity. Discussed conservative care consisting of padding, wider shoes, anti-inflammatories, and orthotics. Discussed surgical treatment options and answered all questions about the intra-operative and post-operative treatment course. Patient will obtain supportive shoes and wear her inserts Next Appt Details Follow Up: prn, Reason: Progress Notes * FRANCISCO YAPDOB:1980 ( 44 yo F)Acc No.[id number]:05/04/2024 Patient:?PAYTON YAPHA Provider:?Kalpesh Cao DPM :1980???Age:44 Y???Sex:Female D ate:05/04/2024 Address:[address] [place] [address] Subjective: * Chief Complaints: * ???The patient is very happy with how well the topical medication cleared up her fungal skin. The cracks and splits between the toes went away. There is still some scaling, but very mild.She has not had a chance to wear the inserts for her great toe joint pain, as she is in the process of getting new shoes and wants to do this all at once * HPI: ???HPI:?Follow Up Visit?Patient presents for follow-up visit for Powerstep inserts and topical medication. Patient states topical has been helping and she is no longer experiencing pain. Patient states she has not had a chance to wear Powerstep inserts yet. , MA: LB.? * ROS:?General / Constitutional:?Patient denies?chills, fever, weakness, night sweats.?Musculoskeletal:?Patient denies?childhood foot problems, weakness.?Patient complains of?joint pain, fallen arches.?Peripheral Vascular:?Patient denies?ulceration of feet, cold extremities.?Skin:?Patient denies?ulcerations, discoloration.?Patient complains of?scaling, peeling, blisters.?Neurologic:?Patient denies?balance difficulty, confusion, difficulty speaking, dizziness.? * Medical History:? * Surgical History:? * Hospitalization/Major Diagno stic Procedure:? * Family History:?Mother: PRN - Mother: .?Brother: SIB - Brother: .? * Social History:?Migrated Social History:?Migrated Social History: Smoking Status : Former smoker , History of tobacco use :. * Medications:?TakingClotrimaz ole-Betamethasone 1-0.05 % Cream 1 application Externally Twice a day , Notes to Pharmacist: one tube, 30g or similarMedication List reviewed and reconciled with the patientTaking Clotrimazole-Betamethasone 1-0.05 % Cream 1 application Externally Twice a day , Notes to Pharmacist: one tube, 30g or similarMedication List reviewed and reconciled with the patient * Allergies:?Iodineno[Allergie s Verified] Objective: * Vitals:? * Examination: ???Constitutional: ?Constitutional?The patient is awake, alert, well developed, well groomed and well nourished.?Dermatologic: ?Skin findings:?Skin is warm, dry, supple with no breaks in the skin. Right foot: the scaling, fissuring, and breaks in the skin has resolved.?Vascular: ?Dorsalis pedis pulse:?2/4, bilateral.?Posterior tibial pulse:?2/4, bilateral.?Capillary refill:?less than 3 seconds.?Edema:?No edema, bilateral.?Neurologic: ?Gross sensation?Gross sensation is intact to light touch.?Musculoskeletal: ?Muscle Strength?Muscle strength is 5/5 in regards to dorsiflexion, plantarflexion, inversion, and eversion in bilateral lower extremities.?Hallux Abducto Valgus?the right hallux has elevation of the 1st metatarsal.? There is decreased ROM of the 1st MPJ with forefoot loading.?Foot Structure?The foot structure is noted to be, planus, bilaterally, There is calcaneus valgus noted, bilaterally.? Assessment: * Assessment: 1.?Tinea pedis - B35.3 (Prim bernard)???2.?Hallux rigidus, right foot - M20.21???3.?Primary osteoarthritis, right ankle and foot - M19.071???4.?Pain in right foot - M79.671??? Plan: * Treatment: 2.?Hallux rigidus, right puja t? Notes: Hallux Limitus: Discussed various treatments with the patient regarding hallux limitus deformity. Discussed conservative care consisting of padding, wider shoes, anti-inflammatories, and orthotics. Discussed surgical treatment options and answered all questions about the intra-operative and post-operative treatment course. Patient will obtain supportive shoes and wear her inserts?? * Procedure Codes:? * Follow Up:?prn * Billing Information: * Visit Code:? 68281 Office Visit, Est Pt., Level 3. * Procedure Codes:? * ER DIVING Sign off status: Completed true * Provider:?Kalpesh Cao DPM Date:?05/04/20 24 Generated for Krystyna castellon/Wilner/Maral on:?05/29/2024 03:49 PM FISHER DIVING History and Physical Notes * HPI (History of Present Illness) Category Sub-Category Detail Notes Category Not es HPI Follow Up Visit Patient presents for follow-up visit for Powerstep inserts and topical medication. Patient states topical has been helping and she is no longer experiencing pain. Patient states she has not had a chance to wear Powerstep inserts yet. , MA: LB Examination Category Sub-Category Detail Notes Category Not es Dermatologic Skin findings: Skin is warm, dr y, supple with no breaks in the skin. Right foot: the scaling, fissuring, and breaks in the skin has resolved Neurologic Gross sensation Gross sensation is intact to light touch Vascular Dorsalis pedis pulse: 2/4, bilateral Edema: No edema, bilateral Capillary refill: less than 3 seconds Posterior tibial pulse: 2/4, bilateral Musculoskeletal Muscle Strength Muscle strength is 5/5 in regards to dorsiflexion, plantarflexion, inversion, and eversion in bilateral lower extremities Hallux Abducto Valgus the right hallux h as elevation of the 1st metatarsal. There is decreased ROM of the 1st MPJ with forefoot loading Foot Structure The foot structure i s noted to be, planus, bilaterally, There is calcaneus valgus noted, bilaterally Constitutional Constitutional The patient is a wake, alert, well developed, well groomed and well nourished
--- OUTSIDE RECORDS SUMMARY | 2024-05-29 15:49 | XMS_ITS | Encounter Summary ---
Author Organization [facility] Address [address] [place] [address] Care Team Providers Care Blood Bank Specialist Name Role Phone Unavailable Primary Care Provider Unavailabl e Encounter Details Date Type Department Care Team (Late st Contact Info) Description 06/23/2021 Lab Requisition [facility] Community Testing [facility] [address] [place] [address] Liam Liu MD [address] [place] [address] [place] [address] Social History Tobacco Use Types Packs/Day Years Used Date Smoking Tobacco: Never Assessed Comments Unknown Sex and Gender Information Value Date Recorded Sex Assigned at Not on file Legal Sex Female 7:23 AM DEPOT MANAGER Gender Identity Not on file Sexual Orientation Not on file documented as of this encounter Plan of Treatment Not on file documented as of this encounter Procedures Procedure Name Priority Date/Time Associated Diagnosis Comments SARS-COV-2 PCR [facility] ONLY Routine 06/23/2021 8:21 AM DEPOT MANAGER documented in this encounter Visit Diagnoses Not on filedocumented in this encounter
--- OUTSIDE RECORDS SUMMARY | 2024-05-29 15:49 | XMS_ITS | Clinical Summary ---
Author Organization [facility] Care Team Providers Care Automation Tester Name Role Phone Unavailable Primary Care Provider Unavailabl e Social History Tobacco Use Types Packs/Day Years Used Date Smoking Tobacco: Never Assessed Comments Unknown Sex and Gender Information Value Date Recorded Sex Assigned at Not on file Legal Sex Female 7:23 AM SOLUTION SPEC Gender Identity Not on file Sexual Orientation Not on file Plan of Treatment Health Maintenance Due Date Last Done Comments Hepatitis C Virus (HCV) Screening 1980 TdaP Immunization 1980 Hepatitis B Immunization (1 of 3 - 19+ 3-dose series) 1999 Pap Smear 2001 Cervical Cancer Screening (CCS) 2010 HPV/Cotest 2010 Discussion re Starting/Frequency of Mammograms 2020 SARS-COV-2 Immunization ( season) 2023 08/30/2020, 08/02/2020 Influenza Immunization (Seas on Ended) 2024 02/27/2017 Meningococcal Immunization (ACWY) Aged Out No longer eligible b ased on patient's age to complete this topic Pneumococcal Immunization Combined Aged Out No longer eligible b ased on patient's age to complete this topic Rotavirus Immunization Aged Out No lo nger eligible based on patient's age to complete this topic
--- OUTSIDE RECORDS SUMMARY | 2024-05-29 15:49 | XMS_ITS | Encounter Summary ---
Author Organization [facility] Address [address] [place] [address] Care Team Providers Care Wrapper Operator Name Role Phone Unavailable Primary Care Provider Unavailabl e Encounter Details Date Type Department Care Team (Late st Contact Info) Description 06/23/2021 8:00 AM SACK KEEPER Rapid Evaluation [facility] Community Testing [address] [address] Social History Tobacco Use Types Packs/Day Years Used Date Smoking Tobacco: Never Assessed Comments Unknown Sex and Gender Information Value Date Recorded Sex Assigned at Not on file Legal Sex Female 7:23 AM SACK KEEPER Gender Identity Not on file Sexual Orientation Not on file documented as of this encounter Plan of Treatment Not on file documented as of this encounter Visit Diagnoses Not on filedocumented in this encounter
--- OUTSIDE RECORDS SUMMARY | 2024-05-29 15:49 | XMS_ITS ---
Author Organization [facility] Address [address] [place], [place] [id number] Care Team Providers Care Telephone Supervisor Name Role Phone ALLENAntionette KALPESH Unavailable [phone] Pao Wheeler Unavailable Unavailable Allergies Allergen (clinical drug ingredient) Drug/Non Drug Allergy documented on EMR Reaction Allergy Type Onset Date Status Iodine Unknown Drug Allergy Active REASON FOR VISIT The patient has multiple foot issues, all of the right foot. She has blisters, peeling, and scalingof the skin on the right foot., She also has problems with her right great toe joint. Sometimes it can ache and bother her. It does not seem to be weather dependent, but rather activity dependent. She also reports a history of fallen arches Medications Medication SIG (Take, Route, Frequency, Duration) Notes Start Date End Date Status Clotrimazole-Betamet hasone 1-0.05 % 1 application Externally Twice a day one tube, 30g or similar 04/20/2024 Active Encounters Encounter Location Date Provider Diagnosis [facility] [place] [address] [place], [place] [id number] 04/20/2024 KALPESH CAO Tinea pedis B35.3 ; Hallux rigidus, right foot M20.21 ; Primary osteoarthritis, right ankle and foot M19.071 and Pain in right foot M79.671 Assessments Encounter Date Diagnosis (ICD Code) Assessment Notes Treatment Notes Treatment Clinical Notes Section Notes 04/20/2024 Tinea pedis (ICD-10 - B35.3) Tinea Pedis: Tinea pedis (athlete's foot) is a dermatologic fungal infection that typically affects the epidermis and is the most common dermatophyte infection. Tinea pedis is transmitted via direct skin contact, contaminated floors, towels and clothing/shoes and thrives in warm, moist environments. Approximately 26.5 million people are affected annually. Nearly half of these people will suffer from multiple episodes for years. Interdigital tinea pedis presents as erythematous, pruritic, scales or erosions between toes. Blanchard-type tinea pedis affects the soles and medial and lateral sides of the feet and often is itchy, hyperkeratotic and flaking. Inflammatory tinea pedis is characterized by pruritic erythematous, painful vesicles or bullae most commonly on the medial foot. Treatment varies from OTC preparations to a large variety of topical and oral medications. Patient education and proper foot hygiene are important components to the successful treatment of this infection. 04/20/2024 Hallux rigidus, right foot (ICD-10 - M20.21) Hallux Limitus: Discussed various treatments with the patient regarding hallux limitus deformity. Discussed conservative care consisting of padding, wider shoes, anti-inflammatorie s, and orthotics. Discussed surgical treatment options and answered all questions about the intra-operative and post-operative treatment course. PowerStep Inserts: The patient was dispensed and fitted with over the counter arch supports. The patient was educated on their use and effect. All questions were answered. 04/20/2024 Primary osteoarthritis , right ankle and foot (ICD-10 - M19.071) 04/20/2024 Pain in right foot (ICD-10 - M79.671) Plan Of Treatment Medication Medication Name Sig Start Date Stop Date Notes Clotrimazole-Betametha sone 1-0.05 % 1 application Externally Twice a day 04/20/2024 one tube, 30g or similar Treatment Notes Assessment Notes Tinea pedis Tinea Pedis: Tinea pedis (athlete's foot) is a dermatologic fungal infection that typically affects the epidermis and is the most common dermatophyte infection. Tinea pedis is transmitted via direct skin contact, contaminated floors, towels and clothing/shoes and thrives in warm, moist environments. Approximately 26.5 million people are affected annually. Nearly half of these people will suffer from multiple episodes for years. Interdigital tinea pedis presents as erythematous, pruritic, scales or erosions between toes. Blanchard-type tinea pedis affects the soles and medial and lateral sides of the feet and often is itchy, hyperkeratotic and flaking. Inflammatory tinea pedis is characterized by pruritic erythematous, painful vesicles or bullae most commonly on the medial foot. Treatment varies from OTC preparations to a large variety of topical and oral medications. Patient education and proper foot hygiene are important components to the successful treatment of this infection. Hallux rigidus, right foot Hallux Limitus: Discussed various treatments with the patient regarding hallux limitus deformity. Discussed conservative care consisting of padding, wider shoes, anti-inflammatories, and orthotics. Discussed surgical treatment options and answered all questions about the intra-operative and post-operative treatment course. PowerStep Inserts: The patient was dispensed and fitted with over the counter arch supports. The patient was educated on their use and effect. All questions were answered. Next Appt Details Follow Up: 2 Weeks, Reason: See how topical helped tinea pedis. See how shoes and Powersteps helped great toe joint pain Progress Notes * FRANCISCO YAPDOB:1980 ( 44 yo F)Acc No.[id number]:04/20/2024 Progress Notes Patient:?FRANCISCO YAP Provider:?Kalpesh Cao DPM :1980???Age:44 Y???Sex:Female D ate:04/20/2024 Address:[address] [place] [address] Subjective: * Chief Complaints: * ???1. The patient has multip le foot issues, all of the right foot. She has blisters, peeling, and scaling of the skin on the right foot.. 2. She also has problems with her right great toe joint. Sometimes it can ache and bother her. It does not seem to be weather dependent, but rather activity dependent. She also reports a history of fallen arches. * HPI: ???HPI:?New Complaint?Patient presents for a new patient consultation.?Patient complains of an issue to right foot pain. Patient states her #4 digit has been bothering her, and she had a blister on that toe recently. Patient also has pain on the medial side of her foot, near #1 digit. Patient states her primary doctor thought she may have arthritis in this foot. Patient denies any injury., MA: LB.? * ROS:?General / Constitutional:?Patient denies?chills, fever, weakness, night sweats.?Musculoskeletal:?Patient denies?childhood foot problems, weakness.?Patient complains of?joint pain, fallen arches.?Peripheral Vascular:?Patient denies?ulceration of feet, cold extremities.?Skin:?Patient denies?ulcerations, discoloration.?Patient complains of?scaling, peeling, blisters.?Neurologic:?Patient denies?balance difficulty, confusion, difficulty speaking, dizziness.? * Medical History:?Acid reflux , Fibromyalgia, Asthma/Bronchitis, Leg/Feet cramps, Restless leg syndrome. * Family History:?Mother: PRN - Mother: .?Brother: SIB - Brother: .? * Social History:?Migrated Social History:?Migrated Social History: Smoking Status : Former smoker , History of tobacco use :. * Allergies:?Iodine. Objective: * Vitals:? * Examination: ???Constitutional: ?Constitutional?The patient is awake, alert, well developed, well groomed and well nourished.?Dermatologic: ?Skin findings:?Skin is warm, dry, supple with no breaks in the skin. Right foot:?There is scaling in a moccasin distribution.? Old deroofed interdigital bullae.?Vascular: ?Dorsalis pedis pulse:?2/4, bilateral.?Posterior tibial pulse:?2/4, bilateral.?Capillary [...] about the intra-operative and post-operative treatment course. PowerStep Inserts: The patient was dispensed and fitted with over the counter arch supports. The patient was educated on their use and effect. All questions were answered.?? * Follow Up:?2 Weeks (Reason: See how topical helped tinea pedis. See how shoes and Powersteps helped great toe joint pain) * Billing Information: * Visit Code:? 91324 Office Visit, Est Pt., Level 3. * Procedure Codes:? * Electronic signature of KALPESH CAO DPM on 05/29/2024 at 03:49 PM BARREL FILLER HEAD Sign off status: Pending * Provider:?Kalpesh Cao DPM Date:?04/20/20 24 Generated for Krystyna castellon/Wilner/Maral on:?05/29/2024 03:49 PM BARREL FILLER HEAD History and Physical Notes * HPI (History of Present Illness) Category Sub-Category Detail Notes Category Not es HPI New Complaint Patient presents for a new patient consultation. Patient complains of an issue to right foot pain. Patient states her #4 digit has been bothering her, and she had a blister on that toe recently. Patient also has pain on the medial side of her foot, near #1 digit. Patient states her primary doctor thought she may have arthritis in this foot. Patient denies any injury., MA: LB Examination Category Sub-Category Detail Notes Category Not es Dermatologic Skin findings: Skin is warm, dr michele, supple with no breaks in the skin. Right foot: There is scaling in a moccasin distribution. Old deroofed interdigital bullae Neurologic Gross sensation Gross sensation is intact [...]
--- OUTSIDE RECORDS SUMMARY | 2024-05-29 15:49 | XMS_ITS | Patient Health Record ---
Author Organization [facility] Address [address] [facility] [address] [place], [place] [id number] Care Team Providers Care Vp Securities Name Role Phone KALPESH DELUNA Unavailable [phone] Pao Wheeler Unavailable Unavailable Allergies Allergen (clinical drug ingredient) Drug/Non Drug Allergy documented on EMR Reaction Allergy Type Onset Date Status Iodine Unknown Drug Allergy Active Reason For Referral No Information Medications Medication SIG (Take, Route, Frequency, Duration) Notes Start Date End Date Status Clotrimazole-Betamet hasone 1-0.05 % 1 application Externally Twice a day one tube, 30g or similar 04/20/2024 Active Encounters Encounter Location Date Provider Diagnosis [facility] [place] [address] [place] [phone] 04/20/2024 KALPESH ALLENK Tinea pedis B35.3 ; Hallux rigidus, right foot M20.21 ; Primary osteoarthritis, right ankle and foot M19.071 and Pain in right foot M79.671 [facility] [place] [address] [place] [phone] 05/04/2024 KALPESH SNOOK Tinea pedis B35.3 ; Hallux rigidus, right [...] erythematous, pruritic, scales or erosions between toes. Ripley-type tinea pedis affects the soles and medial [...] use and effect. All questions were answered. 05/04/2024 Tinea pedis (ICD-10 - B35.3) Tinea [...] ankle and foot (ICD-10 - M19.071) 04/20/2024 Primary osteoarthritis , right ankle and foot (ICD-10 - M19.071) 04/20/2024 Pain in right foot (ICD-10 - M79.671) 05/04/2024 Pain in right foot (ICD-10 - M79.671) Plan Of Treatment No Information Insurance Providers Payer Name Payer Address Payer Phone Subscriber Number Group Number Insured Name Patient Relationship to Insured Coverage Start Date Coverage End Date [facility] [address] [address] [place] [address] [id number] FRANCISCO YAP Self - patient is the insured Medical (General) History Medical History History ICD Code acid reflux fibromyalgia Asthma/Bronchitis Leg/Feet cramps restless leg syndrome
--- OUTSIDE RECORDS SUMMARY | 2024-05-29 17:34 | XMS_ITS | Encounter Summary ---
Author Organization [facility] Address [address] [place] [address] Care Team Providers Care Simplex Operator Name Role Phone Unknown, Provider Primary Care Provider Unavaila ble Encounter Details Date Type Department Care Team (Late st Contact Info) Description 01/19/2009 Orders Only Maternal & Care at [facility] [address] [place] [address] with Other Poor Obstetric History [...] complication documented in this encounter Care Teams Simplex Operator Relationship Specialty Start Date End Date Unknown, Provider PCP - General 08/10/08 10/27/13 documented as of this encounter
--- OUTSIDE RECORDS SUMMARY | 2024-05-29 17:34 | XMS_ITS | Encounter Summary ---
Author Organization [facility] Address [address] [facility] [place] [address] Care Team Providers Care Lead Developer Name Role Phone Unknown, Provider Primary Care Provider Unavaila ble Encounter Details Date Type Department Care Team (Latest Contact Info) Description 02/08/2009 12:01 AM CDT - 02/08/2009 5:36 PM CDT Hospital Encounter Maternal & Care at [facility] [address] [facility] , [address] [place] [address] Milton Bang MD [address] [place] [address] Diagnostic Discharge Disposition: Home or Self Care [...] on filedocumented in this encounter Care Teams Lead Developer Relationship Specialty Start Date End Date Unknown, Provider PCP - General 08/10/08 10/27/13 documented as of this encounter
--- OUTSIDE RECORDS SUMMARY | 2024-05-29 17:34 | XMS_ITS | Encounter Summary ---
Author Organization [facility] Address [facility] [place] [address] Care Team Providers Care Topology Teacher Name Role Phone Unknown, Provider Primary Care Provider Unavaila ble Reason for Visit * Reason Comments Ultrasound FAD NST Encounter Details Date Type Department Care Team (Latest Contact Info) Description 01/26/2009 10:30 AM CDT M Procedure Visit Maternal & Care at [facility] [id number] [place] [address] , [address] [place] [address] Previous Delivery, Antepartum Condition or [...] history documented in this encounter Care Teams Topology Teacher Relationship Specialty Start Date End Date Unknown, Provider PCP - General 08/10/08 10/27/13 documented as of this encounter
--- OUTSIDE RECORDS SUMMARY | 2024-05-29 17:34 | XMS_ITS | Encounter Summary ---
Author Organization [facility] Address [facility] [place] [address] Care Team Providers Care Polysomnography Technician Name Role Phone Unknown, Provider Primary Care Provider Unavaila ble Reason for Visit * Reason Comments Consultation Ultrasound FAD NST Encounter Details Date Type Department Care Team (Latest Contact Info) Description 01/19/2009 10:00 AM CDT M Visit Maternal & Care at [facility] [id number] [place] [address] , [address] [place] [address] with Other Poor Obstetric History [...] Orde r Schedule BIOPHYSICAL PROFILE W NST [facility] Routine Previous Delivery, Antepartum Condition or Complication (HCC) with Other Poor Obstetric History (HCC) Obesity-Antepartum (HCC) Expected: 01/19/2009, Expires: 01/18/2010 DOPPLER STUDIES [facility] Routine with Other Poor Obstetric History (HCC) Obesity-Antepartum (HCC) Previous Delivery, Antepartum Condition or Complication (HCC) Expected: 02/14/2009, Expires: 01/19/2010 SONOGRAM - COMPLETE [facility] Routine Expected: 02/14/2009, Expires: 01/19/2010 [...] UA negative Negative [facility] POCT TEST[facility] Specific Matheny UA POCT 1.025 1.000 - 1.030 [facility] [...] POINT OF CARE ORDERABLES [facility] POCT TESTING [address] [place] [address] documented in this encounter Visit Diagnoses Diagnosis with other poor obstetric history(V23.49) (HCC) with other poor obstetric history Obesity complicating , childbirth, or the puerperium, antepartum condition or complication(649.13) (HCC) Obesity complicating , childbirth, or the puerperium, antepartum condition or complication Previous delivery, antepartum condition or complication (HCC) Previous delivery, antepartum condition or complication documented in this encounter Care Teams Polysomnography Technician Relationship Specialty Start Date End Date Unknown, Provider PCP - General 08/10/08 10/27/13 documented as of this encounter
--- OUTSIDE RECORDS SUMMARY | 2024-05-29 17:34 | XMS_ITS | Encounter Summary ---
Author Organization [facility] Address [address] [place] [address] Care Team Providers Care Edger Machine Helper Name Role Phone Unknown, Provider Primary Care Provider Cieraa ble Encounter Details Date Type Department Care Team (Latest Contact Info) Description 01/08/2009 12:01 AM CDT - 02/07/2009 11:59 PM CDT Hospital Encounter Maternal & Care at [facility] [address] [facility] , [address] [place] [address] Default, Only Milton Bang MD [address] [place] [phone] Diagnostic Discharge Disposition: Home or Self Care [...] on filedocumented in this encounter Care Teams Edger Machine Helper Relationship Specialty Start Date End Date Unknown, Provider PCP - General 08/10/08 10/27/13 documented as of this encounter
--- OUTSIDE RECORDS SUMMARY | 2024-05-29 17:34 | XMS_ITS | Encounter Summary ---
Author Organization [facility] Address [address] [facility] [place] [address] Care Team Providers Care Hand Bunch Maker Name Role Phone Unknown, Provider Primary Care Provider Unavaila ble Encounter Details Date Type Department Care Team (Latest Contact Info) Description 02/23/2009 11:15 AM CDT MFM Procedure Visit Maternal & Care at [facility] [address] , [address] [place] [address] Previous Delivery, Antepartum Condition or [...] complication documented in this encounter Care Teams Hand Bunch Maker Relationship Specialty Start Date End Date Unknown, Provider PCP - General 08/10/08 10/27/13 documented as of this encounter
--- OUTSIDE RECORDS SUMMARY | 2024-05-29 17:34 | XMS_ITS | Encounter Summary ---
Author Organization [facility] Address [address] [place] [address] Care Team Providers Care Photo Checker Name Role Phone Unknown, Provider Primary Care Provider Unavaila ble Encounter Details Date Type Department Care Team (Late st Contact Info) Description 02/14/2009 Orders Only Maternal & Care at [facility] [address] , [address] [place] [address] with Other Poor Obstetric History [...] complication documented in this encounter Care Teams Photo Checker Relationship Specialty Start Date End Date Unknown, Provider PCP - General 08/10/08 10/27/13 documented as of this encounter
--- OUTSIDE RECORDS SUMMARY | 2024-05-29 17:34 | XMS_ITS | Referral Summary ---
Author Organization [facility] [employer] Address [address] [facility] [place] [address] Care Team Providers Care Assistant Professor Of History Name Role Phone Unavailable Primary Care Provider Unavailabl e Source Comments [facility] [employer],non-owned Affiliates and Associated Physician Practices is amultiple site organization consisting of ambulatory clinics and hospital sitesin [place], [place], [place] and [place]. This disclosure is being madepursuant to the Care Everywhere program and may not contain all information available regarding this patient. Last updated 18.[facility] [employer] Allergies Active Allergy Reactions Criticality Noted [...]
--- OUTSIDE RECORDS SUMMARY | 2024-05-29 17:34 | XMS_ITS | Clinical Summary ---
Author Organization [facility] [email or web address] Address [address] [place] [address] Care Team Providers Care Production Finisher Name Role Phone Unavailable Primary Care Provider Unavailabl e Source Comments [facility] [email or web address],non-owned Affiliates and Associated Physician Practices is amultiple site organization consisting of ambulatory clinics and hospital sitesin [place], [place], [place] and [place]. This disclosure is being madepursuant to the Care Everywhere program and may not contain all information available regarding this patient. Last updated 18.[facility] [email or web address] Allergies Active Allergy Reactions Criticality Noted Date [...]
--- OUTSIDE RECORDS SUMMARY | 2024-05-29 17:34 | XMS_ITS | Encounter Summary ---
Author Organization [facility] Address [address] [facility] [place] [address] Care Team Providers Care Voice Instructor Name Role Phone Unknown, Provider Primary Care Provider Unavaila ble Encounter Details Date Type Department Care Team (Late st Contact Info) Description 02/02/2009 9:00 AM CDT MFM Visit Maternal & Care at [facility] [address] [facility] , [address] [place] [address] Milton Bang MD [address] [place] [address] with Other Poor Obstetric History [...] complication documented in this encounter Care Teams Voice Instructor Relationship Specialty Start Date End Date Unknown, Provider PCP - General 08/10/08 10/27/13 documented as of this encounter
--- OUTSIDE RECORDS SUMMARY | 2024-05-29 17:34 | XMS_ITS | Encounter Summary ---
Author Organization [facility] Address [address] [facility] [place] [address] Care Team Providers Care Sprayer Leather Name Role Phone Unknown, Provider Primary Care Provider Unavaila ble Encounter Details Date Type Department Care Team (Late st Contact Info) Description 01/26/2009 Orders Only Maternal & Care at [facility] [address] , [address] [place] [address] Previous Delivery, Antepartum Condition or [...] complication documented in this encounter Care Teams Sprayer Leather Relationship Specialty Start Date End Date Unknown, Provider PCP - General 08/10/08 10/27/13 documented as of this encounter
--- OUTSIDE RECORDS SUMMARY | 2024-05-29 17:34 | XMS_ITS | Encounter Summary ---
Author Organization [facility] Address [address] [place] [address] Care Team Providers Care Motorcycle Designer Name Role Phone Unknown, Provider Primary Care Provider Unavaila ble Encounter Details Date Type Department Care Team (Late st Contact Info) Description 01/12/2009 Orders Only Maternal & Care at [facility] [address] , [address] [place] [address] with Other Poor Obstetric History [...] complication documented in this encounter Care Teams Motorcycle Designer Relationship Specialty Start Date End Date Unknown, Provider PCP - General 08/10/08 10/27/13 documented as of this encounter
--- OUTSIDE RECORDS SUMMARY | 2024-05-29 17:34 | XMS_ITS | Patient Health Summary ---
Author Organization [facility] Address [facility] [facility] [place] [address] Care Team Providers Care Reaming Machine Operator Name Role Phone Unavailable Primary Care Provider Unavailabl e Note from [facility],non-owned Affiliates and Associated Physician Practices is amultiple site organization consisting of ambulatory clinics and hospital sitesin [place], [place], [place] and [place]. This disclosure is being madepursuant to the Care Everywhere program and may not contain all information available regarding this patient. Last updated 18.[facility] Allergies * Etodolac(Unknown) -High Criticality Medications Be [...] 10,000 CFU/ML of Normal Urogenital/ Skin Elba [facility] Comment:. Culture Urine REBEKAH ALBICANS(A) [facility] Comment:Numeric Value - 300 CFU/ML Rebekah Albicans Urine specimen (specimen) URINE SPECIMEN OBTAINED BY CLEAN CATCH PROCEDURE / Unknown 11/02/2013 1:00 AM CDT 11/02/2013 8:44 AM CDT Narrative [facility] - 11/04/2013 4:33 PM CDT AndersonSpecimen#[id number] [facility] Loc/Rm/Bed: LDR/105/00 CLN CATCH U Historical Provider LAB - MICROBIOLOG Y ORDERABLES [address] [phone] * URINALYSIS OBSTETRICS - POINT OF CARE (01/19/2009 1:00 PM CDT) Glucose UA negative Negative [facility] POCT TEST[facility] Bilirubin UA negative Negative [facility] PO CT TESTING Ketone UA negative Negative [facility] POCT TESTING Specific Hana UA POCT 1.025 1.000 - 1.030 [facility] [...] CARE ORDERABLES Performing Organization Address City/[facility] Co de Phone Number [facility] POCT TESTING [address] [place] [address] * KETO DIASTIX - POINT OF CARE (01/05/2009 10:30 AM CDT) Only the most recent of3 resultswithin the time period is included. Pathologist [facility] Ketone UA Not Detected Not Detected mg/dl [facility] Glucose UA Not Detected Not Detected mg/dl [facility] Comment Glucose UA: This test was performed by Women's Services Staff [facility] URINE / Unknown 01/05/2009 1 0:30 AM CDT Only Default LAB - POINT OF CARE ORDERABLES Performing Organization Address [facility] Co de Phone Number [facility] [address] [place] [address] * URINALYSIS - POINT OF CARE (01/05/2009 10:30 AM CDT) Only the most recent of3 resultswithin the time period is included. Leukocyte UA Not Detected Not Detected /ul [facility] Protein UA Not Detected Not Detected mg/dl [facility] Glucose UA Not Detected Not Detected mg/dl [facility] Blood UA Not Detected Not Detected /ul [facility] Nitrite UA Not Detected Not Detected [facility] Comment Test performed by [facility] Women's Services Staff. [facility] URINE / Unknown 01/05/2009 1 0:30 AM CDT Only Default LAB - POINT OF CARE ORDERABLES Performing Organization Address City/State/[facility] Co de Phone Number [facility] [address] [place] [address]
--- OUTSIDE RECORDS SUMMARY | 2024-05-29 17:34 | XMS_ITS | Encounter Summary ---
Author Organization [facility] Address [facility] [facility] [place] [address] Care Team Providers Care Automotive Production Worker Name Role Phone Unknown, Provider Primary Care Provider Unavaila ble Encounter Details Date Type Department Care Team (Latest Contact Info) Description 01/12/2009 10:30 AM CDT MFM Procedure Visit [facility] [address] [place] [address] with Other Poor Obstetric History [...] complication documented in this encounter Care Teams Automotive Production Worker Relationship Specialty Start Date End Date Unknown, Provider PCP - General 08/10/08 10/27/13 documented as of this encounter
--- OUTSIDE RECORDS SUMMARY | 2024-05-29 17:35 | XMS_ITS | Encounter Summary ---
Author Organization [facility] Address [facility] [facility] [place], [place] [address] [place] [address] Care Team Providers Care Cement Worker Name Role Phone Mimi Carrillo MD Primary Care Provider [phone] Encounter Details Date Type Department Care Team (Late st Contact Info) Description 10/17/2018 Orders Only [facility] Medical [facility] [address] [address] Luz Maria Carrasco MA Social History Tobacco Use Types Packs/Day Years Used Date Smoking Tobacco: Every Day Smokeless Tobacco: Never Alcohol Use Standard Drinks/Week Comments Yes 0 (1 standard drink = 0.6 oz pur e alcohol) OCC. Comments No Sex and Gender Information Value Date Recorded Sex Assigned at Not on file Legal Sex Female 2:59 PM SCHOOL CLEANER Gender Identity Not on file Sexual Orientation Not on file documented as of this encounter Plan of Treatment Not on file documented as of this encounter Visit Diagnoses Not on filedocumented in this encounter Care Teams Cement Worker Relationship Specialty Start Date End Date Mimi Carrillo MD [address] [place] [address] PCP - General FAMILY PRACTICE 07/24/18 documented as of this encounter
--- OUTSIDE RECORDS SUMMARY | 2024-05-29 17:35 | XMS_ITS | Encounter Summary ---
Author Organization [facility] Address [facility]. [place], [place] [address] [place] [address] Care Team Providers Care Deburr Operator Name Role Phone Mimi Carrillo MD Primary Care Provider Reason for Visit * Reason Comments Cough cough - some what pr oductive, harder to breath, ears feel clogged. she finished the abx that she was put on last week, and she finished the cough syrup. Encounter Details Date Type Department Care Team (Late st Contact Info) Description 09/25/2018 9:20 AM CDT Office Visit [facility] Family Medicine [facility] [address] [place] [address] Alessandra Zepeda, [facility] [address] [place] [address] Cough (cough - some what [...] on file Legal Sex Female 2:59 PM TEXTILE SCIENCE TECHNICIAN Gender Identity Not on file Sexual [...] tablet, Rfl: 0 ??? vitamin D2, ergocalciferol, 10576 UNITS capsule, Take 1 capsule (50,000 Units [...] file Gets together: Not on file Attends moravian service: Not on file Active member of [...] encounter Visit Diagnoses Diagnosis Cough variant asthma ([facility])- Primary Cough variant asthma documented in this encounter Care Teams Deburr Operator Relationship Specialty Start Date End Date Mimi Carrillo MD [address] [place] [address] PCP - General FAMILY PRACTICE 07/24/18 documented as of this encounter
--- OUTSIDE RECORDS SUMMARY | 2024-05-29 17:35 | XMS_ITS | Encounter Summary ---
Author Organization [facility] Address [address] [place] [address]. [place], [place] [address] [place] [address] Care Team Providers Care Power Plant Operator Apprentice Name Role Phone Tony Lang MD Primary Care Provider Encounter Details Date Type Department Care Team (Latest Contact Info) Description 10/18/2017 Abstract [facility] Medical Group Social History Tobacco Use Types Packs/Day Years Used Date Smoking Tobacco: Never Assessed Comments Unknown Sex and Gender Information Value Date Recorded Sex Assigned at Not on file Legal Sex Female 2:59 PM PRODUCT DESIGN ENGINEER Gender Identity Not on file Sexual Orientation Not on file documented as of this encounter Plan of Treatment Not on file documented as of this encounter Visit Diagnoses Not on filedocumented in this encounter Care Teams Power Plant Operator Apprentice Relationship Specialty Start Date End Date Tony Lang MD [address] [place] [address] [place] [address] PCP - General 08/06/16 07/23/18 documented as of this encounter
--- OUTSIDE RECORDS SUMMARY | 2024-05-29 17:35 | XMS_ITS | Encounter Summary ---
Author Organization [facility] Address [address] [place] [address]. [place], [place] [address] [place] [address] Care Team Providers Care Tank Truck Milk Receiver Name Role Phone Tony Lang MD Primary Care Provider [phone] Encounter Details Date Type Department Care Team (Latest Contact Info) Description 04/15/2018 Scan [facility] Medical [facility] , Jeff Cisse MD Social History Tobacco Use Types Packs/Day Years Used Date Smoking Tobacco: Never Assessed Comments Unknown Sex and Gender Information Value Date Recorded Sex Assigned at Not on file Legal Sex Female 2:59 PM ENVIRONMENTAL SCIENCE PROGRAM DIRECTOR Gender Identity Not on file Sexual Orientation Not on file documented as of this encounter Plan of Treatment Not on file documented as of this encounter Visit Diagnoses Not on filedocumented in this encounter Care Teams Tank Truck Milk Receiver Relationship Specialty Start Date End Date [place] [address] PCP - General 08/06/16 07/23/18 documented as of this encounter
--- OUTSIDE RECORDS SUMMARY | 2024-05-29 17:35 | XMS_ITS | Encounter Summary ---
Author Organization [facility] Address [address] [place] [address]. [place], [place] [address] [place] [address] Care Team Providers Care Cutter Down Name Role Phone Mimi Carrillo MD Primary Care Provider [phone] Encounter Details Date Type Department Care Team (Latest Contact Info) Description 07/24/2018 7:31 PM GLYCERIN SUPERVISOR - 07/24/2018 11:59 PM GLYCERIN SUPERVISOR Hospital Encounter [facility] [place] [address] Mimi Carrillo MD [address] [place] [address] Discharge Disposition: Home or Self Care (Routine Discharge) Social History Tobacco Use Types Packs/Day Years Used Date Smoking Tobacco: Every Day Smokeless Tobacco: Never Alcohol Use Standard Drinks/Week Comments Yes 0 (1 standard drink = 0.6 oz pur e alcohol) OCC. Comments Unknown Sex and Gender Information Value Date Recorded Sex Assigned at Not on file Legal Sex Female 2:59 PM GLYCERIN SUPERVISOR Gender Identity Not on file Sexual [...] 25 OH Routine 07/24/2018 11:0 4 AM GLYCERIN SUPERVISOR Low vitamin D level documented in this encounter Results * (ABNORMAL) VITAMIN D, 25 OH (07/24/2018 11:04 AM GLYCERIN SUPERVISOR) VITAMIN D 25 HYDROXY S/P/B 19(L) 30 - 100 NG/ML 07/24/2018 9:15 PM GLYCERIN SUPERVISOR [facility] Comment: ? INTERPRETATION ? DEFICIENT ??<20 ? INSUFFICIENT 20-29 ?SUFFICIENT 30-100 07/24/2018 11:0 4 AM GLYCERIN SUPERVISOR Mimi Carrillo MD LABORATORY Final Result [facility] [address] [place] [address], documented in this encounter Visit Diagnoses Diagnosis Low vitamin D level documented in this encounter Care Teams Cutter Down Relationship Specialty Start Date End Date Mimi Carrillo MD [address] [place] [address] PCP - General FAMILY PRACTICE 07/24/18 documented as of this encounter
--- OUTSIDE RECORDS SUMMARY | 2024-05-29 17:35 | XMS_ITS | Encounter Summary ---
Author Organization [facility] Address [facility] [place] [address] Care Team Providers Care Crucible Furnace Tender Name Role Phone Unknown, Provider Primary Care Provider Unavaila ble Encounter Details Date Type Department Care Team (Latest Contact Info) Description 11/08/2008 12:01 AM CDT - 12/07/2008 11:59 PM CDT Hospital Encounter [facility] Default [address] [place] [address] Milton Bang MD [address] [place] [phone] Default, Only Diagnostic Discharge Disposition: Home or [...] LABORATORY Glucose UA Detected Not Detected mg/dl [facility] Comment Glucose UA: This test was performed by Women's Services Staff [facility] URINE / Unknown 12/01/2008 1 1:30 AM CDT Only Default LAB - POINT OF CARE ORDERABLES Performing Organization Address City/[facility] Co de Phone Number [facility] [address] [place] [address] * URINALYSIS - POINT OF CARE (12/01/2008 11:30 AM CDT) Leukocyte UA Detected Not Detected /ul [facility] Protein UA Detected Not Detected mg/dl [facility] Glucose UA Detected Not Detected mg/dl [facility] Blood UA Not Detected Not Detected /ul [facility] Nitrite UA Not Detected Not Detected [facility] Comment Test performed by [facility] Women's Services Staff. [facility] URINE / Unknown 12/01/2008 1 1:30 AM CDT Only Default LAB - POINT OF CARE ORDERABLES Performing Organization Address [facility] de Phone Number [facility] [address] [place] [address] documented in this encounter Visit Diagnoses Diagnosis with other poor obstetric history(V23.49) ([facility]) with other poor obstetric history documented in this encounter Care Teams Crucible Furnace Tender Relationship Specialty Start Date End Date Unknown, Provider PCP - General 08/10/08 10/27/13 documented as of this encounter
--- OUTSIDE RECORDS SUMMARY | 2024-05-29 17:35 | XMS_ITS | Encounter Summary ---
Author Organization [facility] Address [address] [place] [address]. [place], [place] [address] [place] [address] Care Team Providers Care Tattoo Artist Name Role Phone Mimi Carrillo MD Primary Care Provider Reason for Visit * Reason Onset Date Comments Medication Information 07/30/2018 Encounter Details Date Type Department Care Team (Late st Contact Info) Description 07/30/2018 Telephone [facility] Family Medicine [facility] [address] [place] [address] Mimi Carrillo MD [address] [place] [address] Medication Information Social History Tobacco Use Types Packs/Day Years Used Date Smoking Tobacco: Every Day Smokeless Tobacco: Never Alcohol Use Standard Drinks/Week Comments Yes 0 (1 standard drink = 0.6 oz pur e alcohol) OCC. Comments Yes Sex and Gender Information Value Date Recorded Sex Assigned at Not on file Legal Sex Female 2:59 PM ROTARY SOIL STABILIZER Gender Identity Not on file Sexual Orientation Not on file documented as of this encounter Plan of Treatment Not on file documented as of this encounter Visit Diagnoses Not on filedocumented in this encounter Care Teams Tattoo Artist Relationship Specialty Start Date End Date Mimi Carrillo MD [address] [place] [address] PCP - General FAMILY PRACTICE 07/24/18 documented as of this encounter
--- OUTSIDE RECORDS SUMMARY | 2024-05-29 17:35 | XMS_ITS | Encounter Summary ---
Author Organization [facility] Address [facility] [place] [address] Care Team Providers Care Risk Management Consultant Name Role Phone Unknown, Provider Primary Care Provider Unavaila ble Encounter Details Date Type Department Care Team (Latest Contact Info) Description 08/10/2008 1:04 PM OBSERVATION ASSISTANT - 08/10/2008 11:59 PM OBSERVATION ASSISTANT Hospital Encounter [facility] Default [address] [place] [address] Milton Bang MD [address] [place] [phone] Diagnostic Discharge Disposition: Home or Self Care [...] OF CARE (IP) Routine 08/10/2008 1:15 PM OBSERVATION ASSISTANT with Other Poor Obstetric History (HCC) URINALYSIS - POINT OF CARE Routine 08/10/2008 1:15 PM OBSERVATION ASSISTANT with Other Poor Obstetric History (HCC) documented in this encounter Results * KETO DIASTIX - POINT OF CARE (08/10/2008 1:15 PM OBSERVATION ASSISTANT) Ketone UA Not Detected Not Detected mg/dl [facility] Glucose UA Not Detected Not Detected mg/dl [facility] Comment Glucose UA: This test was performed by Women's Services Staff [facility] URINE / Unknown 08/10/2008 1 :15 PM OBSERVATION ASSISTANT Milton Bang MD LAB - POINT OF CARE ORDERABLES [facility] * URINALYSIS - POINT OF CARE (08/10/2008 1:15 PM OBSERVATION ASSISTANT) Leukocyte UA Not Detected Not Detected /ul [facility] Protein UA Not Detected Not Detected mg/dl [facility] Glucose UA Not Detected Not Detected mg/dl [facility] Blood UA Not Detected Not Detected /ul [facility] Nitrite UA Not Detected Not Detected [facility] Comment Test performed by [facility] Women's Services Staff. [facility] URINE / Unknown 08/10/2008 1 :15 PM OBSERVATION ASSISTANT Milton Bang MD LAB - POINT OF CARE ORDERABLES [facility] documented in this encounter Visit Diagnoses Diagnosis with other poor obstetric history(V23.49) (HCC) with other poor obstetric history documented in this encounter Care Teams Risk Management Consultant Relationship Specialty Start Date End Date Unknown, Provider PCP - General 08/10/08 10/27/13 documented as of this encounter
--- OUTSIDE RECORDS SUMMARY | 2024-05-29 17:35 | XMS_ITS | Encounter Summary ---
Author Organization [facility] Address [facility] [place] [place] [address] [place] [address] Care Team Providers Care Helper Steel Fabrication Name Role Phone Tony Lang MD Primary Care Provider Encounter Details Date Type Department Care Team (Late st Contact Info) Description 12/17/2016 Abstract [facility] Medical Group Family and Sports Medicine - [place] [address] Dai Bianchi DO Social History Tobacco Use Types Packs/Day Years Used Date Smoking Tobacco: Never Assessed Comments Unknown Sex and Gender Information Value Date Recorded Sex Assigned at Not on file Legal Sex Female 2:59 PM FOOD SERVICE AIDE Gender Identity Not on file Sexual Orientation [...] Tablet; TAKE 1 TABLET DAILY DIRECTED; Therapy: 86Cft9108 to (Evaluate:26Jun2016); Last Rx:[id number] Ordered Rx By: Tony Lang; Dispense: 90 Days ; #:90 Tablet; Refill: 1; For: Restless legs syndrome; EDWARD= N; Record 2. Gabapentin 300 MG Oral Capsule; TAKE 1 CAPSULE 3 TIMES DAILY; Therapy: 26Mar2016 to (Evaluate:90Aae8273) Requested for: 26Mar2016; Last Rx:26Mar2016 Ordered Rx By: Mimi Carrillo; Dispense: 30 Days ; #:90 Capsule; Refill: 3; For: Neuropathy; EDWARD = N; Verified Transmission to [facility]; Last Updated By: TLabs; 03/26/2016 9:12:13 AM 3. Gabapentin 300 MG Oral Capsule; take one tab po daily for 1-2 weeks and then may increase to 2 tabs at night; Therapy: 48Dkd8051 to (Last Rx:98Lsq0414) Requested for: 36Udn4034 Ordered Rx By: Tony Lang; Dispense: 0 Days ; #:90 Capsule; Refill: 2; For: Restless legs syndrome; EDWARD= N; Verified Transmission to [facility]; Last Updated By: TLabs; 12/29/2015 1:33:11 PM 4. Montelukast Sodium 10 MG Oral Tablet; TAKE 1 TABLET AT BEDTIME; Therapy: 21Sep2014 to (Last Rx:26Mar2016) Requested for: 26Mar2016 Ordered Rx By: Mimi Carrillo; Dispense: 0 Days ; #:30 Tablet; Refill: 3; For: Allergic rhinitis; EDWARD = N; Verified Transmission to [facility]; Last Updated By: TLabs; 03/26/20168:59:13 AM 5. Naproxen 500 MG Oral Tablet; TAKE 1 TABLET BY MOUTH TWICE DAILY; Therapy: 21Sep2014 to (Evaluate:34Lwc5724) Requested for: 13Sxj7113; Last Rx:[id number] Ordered Rx By: Tony Lang; Dispense: 30 Days ; #:60 TAB; Refill: 0; For: PMH: Choking sensation, Seborrheic dermatitis; EDWARD = N; Verified Transmission to [facility]; Last Updated By: TLabs; 12/13/2014 9:22:02 AM 6. Vitamin A 02722 UNIT Oral Capsule; Take 4 capsules (100,000 units) PO QD x3days and then take 2 capsules (50,000 units) PO QD x 14 days for vitamin A deficiency; Therapy: 08Aug2016 to (Last Rx:08Aug2016) Requested for: 08Aug2016 Ordered Rx By: Mimi Carrillo; Dispense: 0 Days ; #:40 Capsule; Refill: 0; For: Vitamin a deficiency; EDWARD = N; Verified Transmission to [facility]; Last Updated By: TLabs; 08/08/2016 2:11:04 AM Allergies 1. Lodine Recorded By: Adilene Ortega; 02/18/2014 10:18:29 AM Vitals Recorded: 37Frz6357 08:09AM Temperature 98.2 F, Oral Heart Rate [...] asthma; EDWARD = N; Verified Transmission to [facility] 99994; Last Updated By: TLabs; 12/17/2016 8:40:03 AM Cough variant asthma, Migraine headache 2. Ffmxegkjlh-HJOG-Ghrtzski 50-325-40 MG Oral Capsule; TAKE 1 CAPSULE [...] Dai Bianchi D.O.; Dec 17 2016 8:41AM FOOD SERVICE AIDE (Author) documented in this encounter Plan of Treatment Not on file documented as of this encounter Visit Diagnoses Not on filedocumented in this encounter Care Teams Helper Steel Fabrication Relationship Specialty Start Date End Date Tony Lang MD [address] [place] [address] PCP - General 08/06/16 07/23/18 documented as of this encounter
--- OUTSIDE RECORDS SUMMARY | 2024-05-29 17:35 | XMS_ITS | Encounter Summary ---
Author Organization [facility] Address [facility]3 [place] [address] Care Team Providers Care Tile Grader Name Role Phone Unavailable Primary Care Provider Unavailabl e Encounter Details Date Type Department Care Team (Latest Contact Info) Description 07/27/2008 11:36 AM POSITION CLASSIFIER - 07/27/2008 11:59 PM POSITION CLASSIFIER Hospital Encounter [facility] Default [address] [place] [address] Milton Bang MD [address] [place] [phone] Diagnostic Discharge Disposition: Home or Self Care [...]
--- OUTSIDE RECORDS SUMMARY | 2024-05-29 17:35 | XMS_ITS | Encounter Summary ---
Author Organization [facility] Address [facility]. [place], [place] [address] [place] [address] Care Team Providers Care Talent Rep Name Role Phone Mimi Carrillo MD Primary Care Provider [phone] Encounter Details Date Type Department Care Team (Late st Contact Info) Description 07/29/2018 Orders Only [facility] Medical [facility] Family Medicine [facility] [address] [place] [phone] [place] [address] [place] [address] Social History Tobacco Use Types Packs/Day Years Used Date Smoking Tobacco: Every Day Smokeless Tobacco: Never Alcohol Use Standard Drinks/Week Comments Yes 0 (1 standard drink = 0.6 oz pur e alcohol) OCC. Comments Unknown Sex and Gender Information Value Date Recorded Sex Assigned at Not on file Legal Sex Female 2:59 PM LOCKET MAKER Gender Identity Not on file Sexual Orientation Not on file documented as of this encounter Progress Notes * Mimi Carrillo MD - 07/30/2018 12:06 PM CST rx sent to request pharmacy. Thanks! ~Dr Espinal ET MAKER * Willow Shipley RN - 07/30/2018 8:55 AM CST Spoke to patient regarding lab results and she wants prescription send to [facility] [place]) ET MAKER * Mimi Carrillo MD - 07/29/2018 7:46 PM CST Vitamin D supplement prescribed. Sent it to [facility] next door because pt did not have a pharmacy on file. Thanks! ~Dr Espinal ET MAKER documented in this encounter Plan of Treatment Not on file documented as of this encounter Visit Diagnoses Diagnosis Low vitamin D level- Primary documented in this encounter Care Teams Talent Rep Relationship Specialty Start Date End Date Mimi Carrillo MD [address] [place] [address] PCP - General FAMILY PRACTICE 07/24/18 documented as of this encounter
--- OUTSIDE RECORDS SUMMARY | 2024-05-29 17:35 | XMS_ITS | Encounter Summary ---
Author Organization [facility] Address [address] [place] [address]. [place] [address] [place] [address] Care Team Providers Care Presentation Designer Name Role Phone Tony Lang MD Primary Care Provider [phone] Encounter Details Date Type Department Care Team (Latest Contact Info) Description 10/10/2017 Abstract [facility] Medical Group Mimi Carrillo MD [facility] [place] [address] Social History Tobacco Use Types Packs/Day Years Used Date Smoking Tobacco: Never Assessed Comments Unknown Sex and Gender Information Value Date Recorded Sex Assigned at Not on file Legal Sex Female 2:59 PM CERTIFIED NURSES' AIDE Gender Identity Not on file Sexual [...] No Polymedco OC sampling bottle received. ?TEST: ??[id number] ??Occult Blood, [place], [place] 10/10/2017 10:5 8 [...] ORDERABLE S Final Result Performing Organization Address [facility] de Phone Number [facility] TO EPIC CONVERSION [...] ORDERABLE S Final Result Performing Organization Address [facility] de Phone Number [employer] TO EPIC CONVERSION [...] MD LABORATORY Final Result Performing Organization Address [facility] de Phone Number [facility] TO EPIC CONVERSION [...] ORDERABLE S Final Result Performing Organization Address [facility] de Phone Number [facility] TO EPIC CONVERSION documented in this encounter Visit Diagnoses Not on filedocumented in this encounter Care Teams Presentation Designer Relationship Specialty Start Date End Date Tnoy Lang MD [address] [place] [address] PCP - General 08/06/16 2 documented as of this encounter
--- OUTSIDE RECORDS SUMMARY | 2024-05-29 17:35 | XMS_ITS | Encounter Summary ---
Author Organization [facility] Address [facility]6 [facility]. [place], [place] [address] [place] [address] Care Team Providers Care Biztalk Consultant Name Role Phone Mimi Carrillo MD Primary Care Provider [phone] Encounter Details Date Type Department Care Team (Latest Contact Info) Description 10/17/2018 11:15 AM CDT - 10/17/2018 7:08 PM [facility] Hospital Encounter [facility] Diagnostic Imaging [address] [address] Mimi Carrillo MD [address] [place] [phone] Discharge Disposition: Home or Self Care (Routine Discharge) Social History Tobacco Use Types Packs/Day Years Used Date Smoking Tobacco: Every Day Smokeless Tobacco: Never Alcohol Use Standard Drinks/Week Comments Yes 0 (1 standard drink = 0.6 oz pur e alcohol) OCC. Comments No Sex and Gender Information Value Date Recorded Sex Assigned at Not on file Legal Sex Female 2:59 PM FIRER POWERHOUSE Gender Identity Not on file Sexual Orientation Not on file documented as of this encounter Medications at Time of Discharge albuterol sulfate HFA (VENTOLIN HFA) 108 (90 Base) MCG/ACT inhaler 12/17/2016 cyclobenzaprine 10 MG tablet TK 1 T PO Q 8 HOURS PRN 0 10/02/2018 vitamin D2, ergocalciferol, 24511 UNITS capsuleIndication s:Low vitamin D level Take [...] leg documented in this encounter Care Teams Biztalk Consultant Relationship Specialty Start Date End Date Mimi Carrillo MD [address] [place] [address] PCP - General FAMILY PRACTICE 07/24/18 documented as of this encounter
--- OUTSIDE RECORDS SUMMARY | 2024-05-29 17:35 | XMS_ITS | Encounter Summary ---
Author Organization [facility] Address [facility]6 [place] [address] [place] [address] Care Team Providers Care Press Shop Supervisor Name Role Phone Tony Lang MD Primary Care Provider [phone] Encounter Details Date Type Department Care Team (Late st Contact Info) Description 03/08/2017 Abstract [facility] Medical Group Family Medicine [facility] [address] [place] [address] Mimi Carrillo MD [address] [place] [address] Social History Tobacco Use Types Packs/Day Years Used Date Smoking Tobacco: Never Assessed Comments Unknown Sex and Gender Information Value Date Recorded Sex Assigned at Not on file Legal Sex Female 2:59 PM IT TECHNICAL SPECIALIST Gender Identity Not on file Sexual Orientation [...] deficiency (268.9) (E55.9) Immunizations Influenza --- Series1: 60Sdt2062; Series2: 16Mhf7000 Current Meds 1. Amoxicillin-Pot Clavulanate 875-125 MG Oral Tablet; Take 1 tab PO BID x7 days; Therapy: 83Rxu4377 to (Evaluate:60Xyg9239) Requested for: 71Hay5208; Last Rx:93Fzc3134 Ordered 2. Benzonatate 100 MG Oral Capsule; TAKE 1 CAPSULE 3 TIMES DAILY NEEDED; Therapy: 19Lgx9942 to (Evaluate:44Myp1928) Requested for: 35Obt3670; Last Rx:54Dyf4531 Ordered 3. Ferrous Sulfate 325 (65 Fe) MG Oral Tablet; TAKE 1 TABLET DAILY DIRECTED; Therapy: 30Voe3531 to (Evaluate:26Jun2016); Last Rx:60Inr6543 Ordered 4. Gabapentin 300 MG Oral Capsule; TAKE 1 CAPSULE 3 TIMES DAILY; Therapy: 26Mar2016 to (Evaluate:21Wpo0246) Requested for: 26Mar2016; Last Rx:85Krd9952 Ordered 5. Gabapentin 300 MG Oral Capsule; take one tab po daily for 1-2 weeks and then may increase to 2 tabs at night; Therapy: 22Gac2771 to (Last Rx:61Ayu2905) Requested for: 05Cxc2595 Ordered 6. Montelukast Sodium 10 MG Oral Tablet; TAKE 1 TABLET AT BEDTIME; Therapy: 17Yar9572 to (Last Rx:26Mar2016) Requested for: 27Hvl6194 Ordered 7. Naproxen 500 MG Oral Tablet; TAKE 1 TABLET BY MOUTH TWICE DAILY; Therapy: 71Rgj8881 to (Evaluate:24Zzx8185) Requested for: 09Mff9559; Last Rx:29Tpn4549 Ordered 8. Ventolin HFA 108 (90 Base) MCG/ACT Inhalation Aerosol Solution; 1-2 puffs 30- 60 min prior to exercise; Therapy: 95Byh3401 to (Last Rx:92Ghs7758) Requested for: 95Snk4554 Ordered 9. Vitamin A 18584 UNIT Oral Capsule; Take 4 capsules (100,000 units) PO QD x3days and then take 2 capsules (50,000 units) PO QD x 14 days for vitamin A deficiency; Therapy: 08Aug2016 to (Last Rx:08Aug2016) Requested for: 08Aug2016 Ordered Allergies 1. Lodine Signatures Electronically signed by : Rowena Philippe MA; Mar 08 2017 8:31AM IT TECHNICAL SPECIALIST (Author) Electronically signed by : Mimi Carrillo M.D.; Mar 08 2017 1:21PM IT TECHNICAL SPECIALIST (Author) documented in this encounter Plan of Treatment Not on file documented as of this encounter Visit Diagnoses Not on filedocumented in this encounter Care Teams Press Shop Supervisor Relationship Specialty Start Date End Date Tony Lang MD [address] [place] [address] PCP - General 08/06/16 07/23/18 documented as of this encounter
--- OUTSIDE RECORDS SUMMARY | 2024-05-29 17:35 | XMS_ITS | Encounter Summary ---
Author Organization [facility] Address [address] [place] [address]. [place], [place] [address] [place] [address] Care Team Providers Care Precision Market Insights Name Role Phone Tony Lang MD Primary Care Provider [phone] Encounter Details Date Type Department Care Team (Latest Contact Info) Description 08/17/2017 Abstract [facility] Medical Group Social History Tobacco Use Types Packs/Day Years Used Date Smoking Tobacco: Never Assessed Comments Unknown Sex and Gender Information Value Date Recorded Sex Assigned at Not on file Legal Sex Female 2:59 PM SPEECH LANG PATH THERAPIST Gender Identity Not on file Sexual Orientation Not on file documented as of this encounter Plan of Treatment Not on file documented as of this encounter Visit Diagnoses Not on filedocumented in this encounter Care Teams [employer] Relationship Specialty Start Date End Date Tony Lang MD [address] [place] [address] [place] [address] PCP - General 08/06/16 07/23/18 documented as of this encounter
--- OUTSIDE RECORDS SUMMARY | 2024-05-29 17:35 | XMS_ITS | Encounter Summary ---
Author Organization [facility] Address [address] [place] [address]. [place], [place] [address] [place] [address] Care Team Providers Care Cabinet And Trim Installer Name Role Phone Jack Carrillo MD Primary Care Provider [phone] Reason for Visit * Reason Comments Leg Pain L Encounter Details Date Type Department Care Team (Late st Contact Info) Description 10/17/2018 9:20 AM CDT Office Visit [facility] Medical [facility] Family Medicine [address] [address] Jack Carrillo MD [address] [place] [address] Leg Pain (L) Social History Tobacco Use Types Packs/Day Years Used Date Smoking Tobacco: Every Day Smokeless Tobacco: Never Alcohol Use Standard Drinks/Week Comments Yes 0 (1 standard drink = 0.6 oz pur e alcohol) OCC. Comments No Sex and Gender Information Value Date Recorded Sex Assigned at Not on file Legal Sex Female 2:59 PM CREATIVE CONSULTANT Gender Identity Not on file Sexual Orientation [...] note were not included. MG LEONARDO SHEA [facility] MEDICAL GROUP FAMILY MEDICINE - [place] [address] [place] [id number] OFFICE FOLLOW UP NOTE Encounter Date: 10/17/2018 [...] file Gets together: Not on file Attends restorationism service: Not on file Active member of [...] 30 capsule 1 ??? vitamin D2, ergocalciferol, 36975 UNITS capsule Take 1 capsule (50,000 Units [...] - 100 NG/ML 10/17/2018 8:35 PM CDT [facility] Comment: ? INTERPRETATION ? DEFICIENT ??<20 ? INSUFFICIENT 20-29 ?SUFFICIENT 30-100 10/17/2018 10:2 3 AM CDT Jack Carrillo MD LABORATORY Final Result [facility] [address] [place] [address], documented in this encounter Visit Diagnoses Diagnosis Chronic pain of left knee- Primary Pain in joint, lower leg Vitamin D deficiency Unspecified vitamin D deficiency Chronic pain of left knee Pain in joint, lower leg documented in this encounter Care Teams Cabinet And Trim Installer Relationship Specialty Start Date End Date Jack Carrillo MD [facility] [place] [address] PCP - General FAMILY PRACTICE 07/24/18 documented as of this encounter
--- OUTSIDE RECORDS SUMMARY | 2024-05-29 17:35 | XMS_ITS | Encounter Summary ---
Author Organization [facility] Address [address] [place] [address]. [place], [place] [address] [place] [address] Care Team Providers Care Ortho/Prosthetic Aide Name Role Phone Mimi Carrillo MD Primary Care Provider [phone] Encounter Details Date Type Department Care Team (Latest Contact Info) Description 10/17/2018 7:09 PM CDT - 10/17/2018 11:59 PM T Hospital Encounter [facility] [place] [address] Mimi Carrillo MD [address] [place] [phone] Discharge Disposition: Home or Self Care (Routine Discharge) Social History Tobacco Use Types Packs/Day Years Used Date Smoking Tobacco: Every Day Smokeless Tobacco: Never Alcohol Use Standard Drinks/Week Comments Yes 0 (1 standard drink = 0.6 oz pur e alcohol) OCC. Comments No Sex and Gender Information Value Date Recorded Sex Assigned at Not on file Legal Sex Female 2:59 PM SHEET HANGER Gender Identity Not on file Sexual Orientation Not on file documented as of this encounter Medications at Time of Discharge albuterol sulfate HFA (VENTOLIN HFA) 108 (90 Base) MCG/ACT inhaler 12/17/2016 cyclobenzaprine 10 MG tablet TK 1 T PO Q 8 HOURS PRN 0 10/02/2018 vitamin D2, ergocalciferol, 27319 UNITS capsuleIndication s:Low vitamin D level Take [...] - 100 NG/ML 10/17/2018 8:35 PM CDT [facility] Comment: ? INTERPRETATION ? DEFICIENT ??<20 ? INSUFFICIENT 20-29 ?SUFFICIENT 30-100 10/17/2018 10:2 3 AM CDT Mimi Carrillo MD LABORATORY Final Result [facility] [address] [place] [address], documented in this encounter Visit Diagnoses Diagnosis Vitamin D deficiency Unspecified vitamin D deficiency documented in this encounter Care Teams Ortho/Prosthetic Aide Relationship Specialty Start Date End Date Mimi Carrillo MD [address] [place] [address] PCP - General FAMILY PRACTICE 07/24/18 documented as of this encounter
--- OUTSIDE RECORDS SUMMARY | 2024-05-29 17:35 | XMS_ITS | Encounter Summary ---
Author Organization [facility] Address [address] [place] [address] Care Team Providers Care Wet Washer Machine Name Role Phone Unknown, Provider Primary Care Provider Unavaila ble Encounter Details Date Type Department Care Team (Latest Contact Info) Description 12/08/2008 12:01 AM CDT - 01/07/2009 11:59 PM CDT Hospital Encounter Maternal & Care at [facility] [address] [facility] , [address] [place] [address] Default, Only Milton Bang MD [address] [place] [phone] Diagnostic Discharge Disposition: Home or Self Care [...] DP C LABORATORY Comment Test performed by [facility] Women's Services Staff. [facility] URINE / Unknown 01/05/2009 1 0:30 AM CDT Only Default LAB - POINT OF CARE ORDERABLES Performing Organization Address City/[facility] Co de Phone Number [facility] [address] [place] [address] * KETO DIASTIX - POINT OF CARE (01/05/2009 10:30 AM CDT) Ketone UA Not Detected Not Detected mg/dl [facility] Glucose UA Not Detected Not Detected mg/dl [facility] Comment Glucose UA: This test was performed by Women's Services Staff [facility] URINE / Unknown 01/05/2009 1 0:30 AM CDT Only Default LAB - POINT OF CARE ORDERABLES Performing Organization Address [facility] de Phone Number [facility] [address] [place] [address] documented in this encounter Visit Diagnoses Diagnosis with other poor obstetric history(V23.49) ([facility]) with other poor obstetric history documented in this encounter Care Teams Wet Washer Machine Relationship Specialty Start Date End Date Unknown, Provider PCP - General 08/10/08 10/27/13 documented as of this encounter
--- OUTSIDE RECORDS SUMMARY | 2024-05-29 17:35 | XMS_ITS | Encounter Summary ---
Author Organization [facility] Address [address] [place] [address]. [place], [place] [address] [place] [address] Care Team Providers Care Central Station Operator Name Role Phone Tony Lang MD Primary Care Provider [phone] Encounter Details Date Type Department Care Team (Late st Contact Info) Description 02/27/2017 Abstract [facility] Medical Group Family Medicine [facility] [address] [place] [address] [place] [address] [place] [address] Social History Tobacco Use Types Packs/Day Years Used Date Smoking Tobacco: Never Assessed Comments Unknown Sex and Gender Information Value Date Recorded Sex Assigned at Not on file Legal Sex Female 2:59 PM INK PRINTER Gender Identity Not on file Sexual Orientation [...] Tablet; TAKE 1 TABLET DAILY DIRECTED; Therapy: 05Xzh7772 to (Evaluate:26Jun2016); Last Rx:[id number] Ordered Rx By: Tony Lang; Dispense: 90 Days ; #:90 Tablet; Refill: 1; For: Restless legs syndrome; EDWARD= N; Record 2. Gabapentin 300 MG Oral Capsule; TAKE 1 CAPSULE 3 TIMES DAILY; Therapy: 26Mar2016 to (Evaluate:[id number]) Requested for: 26Mar2016; Last Rx:26Mar2016 Ordered Rx By: Mimi Carrillo; Dispense: 30 Days ; #:90 Capsule; Refill: 3; For: Neuropathy; EDWARD = N; Verified Transmission to [facility]; Last Updated By: amprice; 03/26/2016 9:12:13 AM 3. Gabapentin 300 MG Oral Capsule; take one tab po daily for 1-2 weeks and then may increase to 2 tabs at night; Therapy: 93Pnd7385 to (Last Rx:[id number]) Requested for: 71Dma8861 Ordered Rx By: Tony Lang; Dispense: 0 Days ; #:90 Capsule; Refill: 2; For: Restless legs syndrome; EDWARD= N; Verified Transmission to [facility]; Last Updated By: amprice; 12/29/2015 1:33:11 PM 4. Montelukast Sodium 10 MG Oral Tablet; TAKE 1 TABLET AT BEDTIME; Therapy: 63Zvu8394 to (Last Rx:[id number]) Requested for: 26Mar2016 Ordered Rx By: Mimi Carrillo; Dispense: 0 Days ; #:30 Tablet; Refill: 3; For: Allergic rhinitis; EDWARD = N; Verified Transmission to [facility]; Last Updated By: amprice; 03/26/20168:59:13 AM 5. Naproxen 500 MG Oral Tablet; TAKE 1 TABLET BY MOUTH TWICE DAILY; Therapy: 03Xkx5362 to (Evaluate:01Wpa3959) Requested for: 03Gux7539; Last Rx:[id number] Ordered Rx By: Tony Lang; Dispense: 30 Days ; #:60 TAB; Refill: 0; For: PMH: Choking sensation, Seborrheic dermatitis; EDWARD = N; Verified Transmission to [facility]; Last Updated By: amprice; 12/13/2014 9:22:02 AM 6. Ventolin HFA 108 (90 Base) MCG/ACT Inhalation Aerosol Solution; 1-2 puffs 30- 60 min prior to exercise; Therapy: 87Taw1718 to (Last Rx:[id number]) Requested for: 06Uzy4217 Ordered Rx By: Dai Bianchi; Dispense: 0 Days ; #:1 X 18 GM Inhaler; Refill: 0; For: Cough variant asthma; EDWARD = N; Verified Transmission to [facility] [address]; Last Updated By: amprice; 12/17/2016 8:40:03 AM 7. Vitamin A 79004 UNIT Oral Capsule; Take 4 capsules (100,000 units) PO QD x3days and then take 2 capsules (50,000 units) PO QD x 14 days for vitamin A deficiency; Therapy: 08Aug2016 to (Last Rx:08Aug2016) Requested for: 08Aug2016 Ordered Rx By: Mimi Carrillo; Dispense: 0 Days ; #:40 Capsule; Refill: 0; For: Vitamin a deficiency; EDWARD = N; Verified Transmission to [facility] [address]; Last Updated By: amprice; 08/08/2016 2:11:04 AM Allergies 1. Lodine Recorded [...] Sinusitis; EDWARD = N; Verified Transmission to [facility]; Last Updated By: amprice; 02/27/20173:40:27 PM Formulary Override Reason: No Formulary Equivalent Exists Flu-like symptoms 2. *Influenza A + B Test In Office; Status:Complete; Done: 27Feb2017 10:13AM Performed:In Office; Due:29Mar2017;Ordered; For:Flu-like symptoms; Ordered By:Miim Carrillo; Sinusitis 3. Amoxicillin-Pot Clavulanate 875-125 MG Oral Tablet (Augmentin); Take 1 tab PO BID x7 days Rx By: Mimi Carrillo; Dispense: 7 Days ; #:14 Tablet; Refill: 0; For: Sinusitis; EDWARD = N; Verified Transmission to [facility]; Last Updated By: amprice; 02/27/2017 3:40:26 PM Formulary Override Reason: No [...] Mimi Carrillo M.D.; Feb 27 2017 7:18PM INK PRINTER (Author) documented in this encounter Plan of [...] on filedocumented in this encounter Care Teams Central Station Operator Relationship Specialty Start Date End Date Tony Lang MD [address] [place] [address] PCP - General 08/06/16 07/23/18 documented as of this encounter
--- OUTSIDE RECORDS SUMMARY | 2024-05-29 17:35 | XMS_ITS | Encounter Summary ---
Author Organization [facility] Address [facility]. [place], [place] [address] [place] [address] Care Team Providers Care Washer Assembler Name Role Phone Mimi Carrillo MD Primary Care Provider [phone] Encounter Details Date Type Department Care Team (Late st Contact Info) Description 09/17/2018 Orders Only [facility] Family Medicine [address] [address] Deidra Guerrero MA Social History Tobacco Use Types Packs/Day Years Used Date Smoking Tobacco: Every Day Smokeless Tobacco: Never Alcohol Use Standard Drinks/Week Comments Yes 0 (1 standard drink = 0.6 oz pur e alcohol) OCC. 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
--- OUTSIDE RECORDS SUMMARY | 2024-05-29 17:35 | XMS_ITS | Encounter Summary ---
Author Organization [facility] Address [address] [place] [address]. [place], [place] [address] [place] [address] Care Team Providers Care Exhauster Name Role Phone Tony Lang MD Primary Care Provider [phone] Encounter Details Date Type Department Care Team (Latest Contact Info) Description 09/25/2017 Abstract [facility] Medical Group Social History Tobacco Use Types Packs/Day Years Used Date Smoking Tobacco: Never Assessed Comments Unknown Sex and Gender Information Value Date Recorded Sex Assigned at Not on file Legal Sex Female 2:59 PM RESPITE WORKER Gender Identity Not on file Sexual Orientation Not on file documented as of this encounter Plan of Treatment Not on file documented as of this encounter Visit Diagnoses Not on filedocumented in this encounter Care Teams Exhauster Relationship Specialty Start Date End Date Tony Lang MD [address] [place] [address] [place] [address] PCP - General 08/06/16 07/23/18 documented as of this encounter
--- OUTSIDE RECORDS SUMMARY | 2024-05-29 17:35 | XMS_ITS | Clinical Summary ---
Author Organization [facility] Address [facility]. [place], [place] [address] [place] [address] Care Team Providers Care Fisher Trawl Line Name Role Phone Mimi Carrillo MD Primary Care Provider Allergies Active Allergy Reactions Criticality Noted Date Comments Etodolac Unknown High 01/12/2009 Causes dehydration Medications albuterol sulfate HFA (VENTOLIN HFA) 108 (90 Base) MCG/ACT inhaler 12/17/2016 Act lula vitamin D2, ergocalciferol, 44289 UNITS capsuleIndicatio ns:Low vitamin D level Take [...] 08/29/2015 Breast pain 02/10/2015 Cough variant asthma ([facility]) 12/23/2014 Piriformis syndrome 12/23/2014 Allergic rhinitis 09/21/2014 Seborrheic dermatitis 09/21/2014 Carpal tunnel syndrome 04/09/2014 IBS (irritable bowel syndrome) 02/18/2014 Fibromyalgia 02/18/2014 Obesity affecting , antepartum ([facility] ) 01/18/2009 Overview (07/24/2018): Overview: Previous delivery, antepartum condition or complication ([facility]) 01/18/2009 Resolved Problems Problem Noted Date Diagnosed Date Resolved Date Nausea 10/10/2017 09/17/2018 Cough 02/27/2017 09/17/2018 Flu-like symptoms 02/27/2017 09/17/2018 Flu vaccine need 03/12/2016 02/19/2020 Encounter for preventive health examination 02/15/2014 02/19/2020 Normal ([facility]) 06/08/2013 0 09/17/2018 with poor obstetri c history ([facility]) 01/18/2009 09/17/2018 Overview (07/24/2018): Overview: [...] on file Legal Sex Female 2:59 PM ENGRAVER HAND HARD METALS Gender Identity Not on file Sexual Orientation [...] patient's age to complete this topic Insurance [facility] Care Teams Fisher Trawl Line Relationship Specialty Start Date End Date Mimi Carrillo MD [address] [place] [address] PCP - General FAMILY PRACTICE 07/24/18
--- OUTSIDE RECORDS SUMMARY | 2024-05-29 17:35 | XMS_ITS | Encounter Summary ---
Author Organization [facility] Address [facility]6 [facility]. [place], [place] [address] [place] [address] Care Team Providers Care Punchboard Filling Machine Operator Name Role Phone Mimi Carrillo MD Primary Care Provider [phone] Encounter Details Date Type Department Care Team (Late st Contact Info) Description 07/24/2018 Orders Only [facility] Medical [facility] Family Medicine [address] [address] Luz Maria Carrasco MA Social History Tobacco Use Types Packs/Day Years Used Date Smoking Tobacco: Every Day Smokeless Tobacco: Never Alcohol Use Standard Drinks/Week Comments Yes 0 (1 standard drink = 0.6 oz pur e alcohol) OCC. Comments Unknown Sex and Gender Information Value Date Recorded Sex Assigned at Not on file Legal Sex Female 2:59 PM BRAND REPRESENTATIVE Gender Identity Not on file Sexual Orientation Not on file documented as of this encounter Plan of Treatment Not on file documented as of this encounter Visit Diagnoses Not on filedocumented in this encounter Care Teams Punchboard Filling Machine Operator Relationship Specialty Start Date End Date Mimi Carrillo MD [address] [place] [address] PCP - General FAMILY PRACTICE 07/24/18 documented as of this encounter
--- OUTSIDE RECORDS SUMMARY | 2024-05-29 17:35 | XMS_ITS | Encounter Summary ---
Author Organization [facility] Address [address] [place] [address]. [place], [place] [address] [place] [address] Care Team Providers Care Landscape Drafter Name Role Phone Mimi Carrillo MD Primary Care Provider [phone] Encounter Details Date Type Department Care Team [...] on file Legal Sex Female 2:59 PM PEN TENDER Gender Identity Not on file Sexual Orientation Not on file documented as of this encounter Plan of Treatment Not on file documented as of this encounter Visit Diagnoses Not on filedocumented in this encounter Care Teams Landscape Drafter Relationship Specialty Start Date End Date Mimi Carrillo MD [address] [place] [address] PCP - General FAMILY PRACTICE 07/24/18 documented as of this encounter
--- OUTSIDE RECORDS SUMMARY | 2024-05-29 17:35 | XMS_ITS | Encounter Summary ---
Author Organization [facility] Address [address] [place] [address]. [place], [place] [address] [place] [address] Care Team Providers Care Medical Illustrator Name Role Phone Jack Neely MD Primary Care Provider [phone] Reason for Referral * Consultation (Urgent) - Closed Specialty Diagnoses / Procedures Referred By Conner [email or web address] Referred To Contact PODIATRY Diagnoses Right foot pain Jack Neely MD [address] [place] [address] Phone: tel: fax: Referral ID Status Reason Start Date Expiration Date V isits Requested Visits Authorized [id number] Closed Specialty Services 07/24/2018 08/24/2019 1 1 P FARM WORKER Reason for Visit * Reason Comments Foot Pain Right Encounter Details Date Type Department Care Team (Late st Contact Info) Description 07/24/2018 10:00 AM SHEEP FARM WORKER Office Visit [facility] Medical Group Family Medicine [address] [phone] Jack Neely MD [address] [place] [address] Foot Pain (Right) Social History Tobacco Use Types Packs/Day Years Used Date Smoking Tobacco: Every Day Smokeless Tobacco: Never Alcohol Use Standard Drinks/Week Comments Yes 0 (1 standard drink = 0.6 oz pur e alcohol) OCC. Comments Unknown Sex and Gender Information Value Date Recorded Sex Assigned at Not on file Legal Sex Female 2:59 PM SHEEP FARM WORKER Gender Identity Not on file Sexual Orientation Not on file documented as of this encounter Last Filed Vital Signs Vital Sign Reading Time Taken Comments Blood Pressure 122/84 07/24/2018 10:16 AM SHEEP FARM WORKER Pulse 78 07/24/2018 10:16 AM SHEEP FARM WORKER Temperature 36.6 ??C (97.9 ??F) 07/24/2018 10:[address] Respiratory Rate 16 07/24/2018 10:16 AM SHEEP FARM WORKER Oxygen Saturation 97% 07/24/2018 10:16 AM SHEEP FARM WORKER Inhaled Oxygen Concentration - - Weight 92.4 kg (203 lb 9.6 oz) 07/24/2018 10:16 AM SHEEP FARM WORKER Height 154.9 cm (5' 1 ) 07/24/2018 10:16 AM SHEEP FARM WORKER Body Mass Index 38.47 07/24/2018 10:16 AM SHEEP FARM WORKER documented in this encounter Progress Notes * Zee Richards MA - 07/24/2018 10:00 AM CSTAddended by: ZEE RICHARDS on: 07/24/2018 11:05 AM Modules accepted: Orders P FARM WORKER * Jack Neely MD - 07/24/2018 10:00 AM CST Images from the original note were not included. MG LEONARDO SHEA [facility]ICAL GROUP FAMILY MEDICINE [address] [address] OFFICE FOLLOW UP NOTE Encounter Date: 07/24/2018 [...] in visit on 07/04/16 CARDIOLOGY GENERIC Narrative [facility] Ordering MD: PITA FALCON MD Acct: [id number] Admit/Service Date: 07/04/16 Discharge Date: : 1980 Pt Type: REG CLI Sex: F Ord Site: [address] Test Date: 2016-07-04 Pat Name: [facility] Department: CARD 40 Room: [facility] Gender: Female Mountain Services Manager: ROLAND : 1980 Requested By: PITA DOUGLASAMADOKaren FALCON Order Number: [id number] Reading MD: Cholo John Measurements Intervals [place] Rate: 59 P: 64 NC: 146 QRS: 67 QRSD: 81 T: 52 QT: 400 QTc: 399 Interpretive Statements SINUS RHYTHM WITH SINUS ARRHYTHMIA No previous ECG available for comparison P FARM WORKER Counseling The patient and patient's family was [...] naproxen 500 MG tablet ??? Vitamin A 84672 units Cap JACK NEELY MD 07/24/2018 P FARM WORKER documented in this encounter Plan of Treatment Scheduled Orders Name Type Priority Associated Diagnoses Orde r Schedule VENIPUNC ARM DRAW Procedures Routine Right foot pain Ordered: 07/24/2018 Scheduled Referrals Name Type Priority Associated Diagnoses Orde r Schedule Ambulatory referral to Podiatry Referral Routine Right foot pain Ordered: 07/24/2018 documented as of this encounter Results * XR FOOT RT 3V (07/24/2018 11:55 AM SHEEP FARM WORKER) Anatomical Region Laterality Modality Foot Radiographic Zehra ging 07/24/2018 2:02 PM SHEEP FARM WORKER Impressions 07/24/2018 2:24 PM SHEEP FARM WORKER ===== IMPRESSION: ===== 1. ??Punctate foreign bodies underlying the tarsal metatarsal joints on lateral view only. Possibly in the soft tissues or on the patient's plantar surface skin. Narrative 07/24/2018 2:24 PM SHEEP FARM WORKER Examination: Right foot 3 views Exam Date/Time: [...] VITAMIN D, 25 OH (07/24/2018 11:04 AM SHEEP FARM WORKER) Pathologist [facility] VITAMIN D 25 HYDROXY S/P/B 19(L) 30 - 100 NG/ML 07/24/2018 9:15 PM SHEEP FARM WORKER [facility] Comment: ? INTERPRETATION ? DEFICIENT ??<20 ? INSUFFICIENT 20-29 ?SUFFICIENT 30-100 07/24/2018 11:0 4 AM SHEEP FARM WORKER Jack Neely MD LABORATORY Final Result [facility] [address] [place] [address], documented in this encounter Visit Diagnoses Diagnosis Right foot pain- Primary Pain in limb Low vitamin D level Right foot pain Pain in limb documented in this encounter Care Teams Medical Illustrator Relationship Specialty Start Date End Date Jack Neely MD [address] [place] [address] PCP - General FAMILY PRACTICE 07/24/18 documented as of this encounter
--- OUTSIDE RECORDS SUMMARY | 2024-05-29 17:35 | XMS_ITS | Encounter Summary ---
Author Organization [facility] Address [address] [place] [address]. [place], [place] [address] [place] [address] Care Team Providers Care Derrick Operator Name Role Phone Tony Lang MD Primary Care Provider [phone] Encounter Details Date Type Department Care Team (Late st Contact Info) Description 11/23/2016 Abstract [facility] Medical Group Family Medicine [facility] [address] [place] [address] Mimi Carrillo MD [address] [place] [address] Social History Tobacco Use Types Packs/Day Years Used Date Smoking Tobacco: Never Assessed Comments Unknown Sex and Gender Information Value Date Recorded Sex Assigned at Not on file Legal Sex Female 2:59 PM AMR PHYSICIAN Gender Identity Not on file Sexual Orientation [...] Tablet; TAKE 1 TABLET DAILY DIRECTED; Therapy: 39Cjb9405 to (Evaluate:26Jun2016); Last Rx:[id number] Ordered 2. Gabapentin 300 MG Oral Capsule; TAKE 1 CAPSULE 3 TIMES DAILY; Therapy: 26Mar2016 to (Evaluate:36Osd7216) Requested for: 26Mar2016; Last Rx:26Mar2016 Ordered 3. Gabapentin 300 MG Oral Capsule; take one tab po daily for 1-2 weeks and then may increase to 2 tabs at night; Therapy: 54Edx5938 to (Last Rx:[id number]) Requested for: 38Ujw9960 Ordered 4. Montelukast Sodium 10 MG Oral Tablet; TAKE 1 TABLET AT BEDTIME; Therapy: 21Sep2014 to (Last Rx:26Mar2016) Requested for: 26Mar2016 Ordered 5. Naproxen 500 MG Oral Tablet; TAKE 1 TABLET BY MOUTH TWICE DAILY; Therapy: 21Sep2014 to (Evaluate:02Wpp9964) Requested for: 29Ulh1240; Last Rx:[id number] Ordered 6. Vitamin A 62418 UNIT Oral Capsule; Take 4 capsules (100,000 [...] Migraine headache; EDWARD= N; Verified Transmission to [facility] [address]; Last Updated By: KevinRigel; 11/23/2016 2:14:40 PM Formulary Override Reason: No [...] Mimi Carrillo M.D.; Nov 27 2016 7:56PM AMR PHYSICIAN (Author) documented in this encounter Plan of Treatment Not on file documented as of this encounter Visit Diagnoses Not on filedocumented in this encounter Care Teams Derrick Operator Relationship Specialty Start Date End Date Tony [place] [address] PCP - General 08/06/16 07/23/18 documented as of this encounter
--- OUTSIDE RECORDS SUMMARY | 2024-05-29 17:35 | XMS_ITS | Encounter Summary ---
Author Organization [facility] Address [address] [place] [address]. [place], [place] [address] [place] [address] Care Team Providers Care Wood Block Artist Name Role Phone Tony Lang MD Primary Care Provider [phone] Encounter Details Date Type Department Care Team (Latest Contact Info) Description 02/28/2017 Abstract [facility] Medical Group Social History Tobacco Use Types Packs/Day Years Used Date Smoking Tobacco: Never Assessed Comments Unknown Sex and Gender Information Value Date Recorded Sex Assigned at Not on file Legal Sex Female 2:59 PM RAMP SERVICE EMPLOYEE Gender Identity Not on file Sexual Orientation Not on file documented as of this encounter Plan of Treatment Not on file documented as of this encounter Visit Diagnoses Not on filedocumented in this encounter Care Teams Wood Block Artist Relationship Specialty Start Date End Date Tony Lang MD [address] [place] [address] [place] [address] PCP - General 08/06/16 07/23/18 documented as of this encounter
--- OUTSIDE RECORDS SUMMARY | 2024-05-29 17:35 | XMS_ITS | Encounter Summary ---
Author Organization [facility] Address [facility] access hospital6 [facility]. [place], [place] [address] [place] [address] Care Team Providers Care Histology Technologist Name Role Phone Mimi Carrillo MD Primary Care Provider [phone] Reason for Visit * Reason Onset Date Comments Record Request 03/01/2022 Encounter Details Date Type Department Care Team (Late st Contact Info) Description 03/01/2022 Telephone [facility] Medical [facility] Family Medicine [facility] [address] [place] [address] Mimi Carrillo MD [address] [place] [address] Record Request Social History Tobacco Use Types Packs/Day Years Used Date Smoking Tobacco: Every Day Smokeless Tobacco: Never Alcohol Use Standard Drinks/Week Comments Yes 0 (1 standard drink = 0.6 oz pur e alcohol) OCC. Comments No Sex and Gender Information Value Date Recorded Sex Assigned at Not on file Legal Sex Female 2:59 PM CONTINUOUS IMPROVEMENT SPECIALIST Gender Identity Not on file Sexual Orientation Not on file documented as of this encounter Progress Notes * Carmenza Padilla MA - 03/21/2022 11:34 AM CDT No report found per the fax I received * Carmenza Padilla MA - 03/01/2022 8:54 AM CDT Requesting the pap smear report from [facility] documented in this encounter Plan of Treatment Not on file documented as of this encounter Visit Diagnoses Not on filedocumented in this encounter Care Teams Histology Technologist Relationship Specialty Start Date End Date Mimi Carrillo MD [address] [place] [address] PCP - General FAMILY PRACTICE 07/24/18 documented as of this encounter
--- OUTSIDE RECORDS SUMMARY | 2024-05-29 17:35 | XMS_ITS | Encounter Summary ---
Author Organization [facility] Address [address] [place] [address]. [place], [place] [address] [place] [address] Care Team Providers Care Cheese Grader Name Role Phone Tony Lang MD Primary Care Provider [phone] Encounter Details Date Type Department Care Team (Latest Contact Info) Description 08/08/2016 Abstract [facility] Social History Tobacco Use Types Packs/Day Years Used Date Smoking Tobacco: Never Assessed Comments Unknown Sex and Gender Information Value Date Recorded Sex Assigned at Not on file Legal Sex Female 2:59 PM NARCOTICS AGENT Gender Identity Not on file Sexual Orientation [...] feel free to call the office at [phone]. Have a blessed day, ~Dr Carrillo Verified Results Vitamin A 05Jul2016 04:22PM Mimi Carrillo Test Name Result Flag Reference Vitamin A (Retinol) 32 L Reference range: 38 to 98 Unit: mcg/dL Vitamin supplementation within 24 hours prior to blood draw may affect the accuracy of the results. This test was developed and its analytical performance characteristics have been determined by [facility], [place]. It has not been cleared or approved by the U.S. Food and Drug Administration. This assay has been validated pursuant to the CLIA regulations and is used for clinical purposes. Test Performed by [facility], [facility] [place], [address] [place], [place] Eric Piper M.D., Ph.D., Director of Laboratories , CLIA [id number] Zinc 05Jul2016 04:22PM Mimi Carrillo Test Name Result Flag Reference Zinc 74 Reference range: 60 to 130 Unit: mcg/dL Test Performed by [facility], [facility] [place], [address] [place], [place] Eric Piper M.D., Ph.D., Director of Laboratories , CLIA [id number] Plan Vitamin a deficiency ?? Vitamin A 58022 UNIT Oral Capsule; Take 4 capsules (100,000 units) PO QD x3days and then take 2 capsules (50,000 units) PO QD x 14 days for vitamin A deficiency documented in this encounter Plan of Treatment Not on file documented as of this encounter Visit Diagnoses Not on filedocumented in this encounter Care Teams Cheese Grader Relationship Specialty Start Date End Date Tony Lang MD [address] [place] [address] [place] [address] PCP - General 08/06/16 07/23/18 documented as of this encounter
--- OUTSIDE RECORDS SUMMARY | 2024-05-29 17:35 | XMS_ITS | Encounter Summary ---
Author Organization [facility] Address [facility] [place] [address] Care Team Providers Care Build Manager Name Role Phone Unknown, Provider Primary Care Provider Unavaila ble Encounter Details Date Type Department Care Team (Latest Contact Info) Description 10/08/2008 12:01 AM CDT - 11/07/2008 11:59 PM CDT Hospital Encounter [facility] Default [address] [place] [address] Milton Bang MD [address] [place] [id number] Diagnostic Discharge Disposition: Home or Self Care [...] on filedocumented in this encounter Care Teams Build Manager Relationship Specialty Start Date End Date Unknown, Provider PCP - General 08/10/08 10/27/13 documented as of this encounter
--- OUTSIDE RECORDS SUMMARY | 2024-05-29 17:35 | XMS_ITS | Encounter Summary ---
Author Organization [facility] Address [address] [place] [address]. [place], [place] [address] [place] [address] Care Team Providers Care Civil Engineering Project Designer Name Role Phone Tony Lang MD Primary Care Provider Encounter Details Date Type Department Care Team (Late st Contact Info) Description 10/16/2017 Abstract [facility] Family Medicine [facility] [address] [place] [phone] Mimi Carrillo MD [address] [place] [address] Social History Tobacco Use Types Packs/Day Years Used Date Smoking Tobacco: Never Assessed Comments Unknown Sex and Gender Information Value Date Recorded Sex Assigned at Not on file Legal Sex Female 2:59 PM REGISTERED NURSE FETAL Gender Identity Not on file Sexual Orientation [...] Pt presents for ER follow up from [place] for back. History of Present Illness HPI Free Text: 37-year-old female presents for ER followup. Patient was seen at [facility], secondary to mid to low back pain. [...] Tablet; TAKE 1 TABLET DAILY DIRECTED; Therapy: 19Ybj0834 to (Evaluate:26Jun2016); Last Rx:75Utl1552 Ordered 2. Gabapentin 300 MG Oral Capsule; TAKE 1 CAPSULE 3 TIMES DAILY; Therapy: 26Mar2016 to (Evaluate:33Alp6373) Requested for: 26Mar2016; Last Rx:[id number] Ordered 3. Gabapentin 300 MG Oral Capsule; take one tab po daily for 1-2 weeks and then may increase to 2 tabs at night; Therapy: 54Olo3407 to (Last Rx:04Ycf3646) Requested for: 13Ihx4863 Ordered 4. Imodium A-D 2 MG Oral Tablet; TAKE 2 TABLETS INITIALLY, FOLLOWED BY 1 TABLET AFTER EACH LOOSE BOWEL MOVEMENT NEEDED. MAX OF 4 TABS/DAY. DO NOT EXCEED 4 TABLETS/DAY; Therapy: 25Ioo2609 to (Last Rx:61Net2672) Requested for: 99Jou3931 Ordered 5. Montelukast Sodium 10 MG Oral Tablet; TAKE 1 TABLET AT BEDTIME; Therapy: 91Yng2363 to (Last Rx:12Gdr7111) Requested for: 18Fdl0699 Ordered 6. Naproxen 500 MG Oral Tablet; TAKE 1 TABLET BY MOUTH TWICE DAILY; Therapy: 88Yiy7027 to (Evaluate:22Nak7836) Requested for: 50Ynq9603; Last Rx:46Tju7472 Ordered 7. Ondansetron 4 MG Oral Tablet Disintegrating; Take 1 tab PO TID PRN nausea; Therapy: 32Fhv6693 to (Last Rx:57Gtq3418) Requested for: 27Svf2667 Ordered 8. Ventolin HFA 108 (90 Base) MCG/ACT Inhalation Aerosol Solution; 1-2 puffs 30- 60 min prior to exercise; Therapy: 75Pnb6140 to (Last Rx:35Daq5401) Requested for: 16Jzn6504 Ordered 9. Vitamin A 38809 UNIT Oral Capsule; Take 4 capsules (100,000 units) PO QD x3days and then take 2 capsules (50,000 units) PO QD x 14 days for vitamin A deficiency; Therapy: 08Aug2016 to (Last Rx:08Aug2016) Requested for: 08Aug2016 Ordered Allergies 1. Lodine Immunizations Influenza --- Series1: 12-Mar-2016; Series2: 27-Feb-2017 Vitals Recorded: 54Knn0972 08:30AM Temperature 98.1 F Heart Rate 82 [...] for ER followup. Patient was seen at [facility], secondary to mid to low back pain. [...] Mimi Carrillo M.D.; Oct 20 2017 7:10PM REGISTERED NURSE FETAL (Author) documented in this encounter Plan of Treatment Not on file documented as of this encounter Visit Diagnoses Not on filedocumented in this encounter Care Teams Civil Engineering Project Designer Relationship Specialty Start Date End Date Tony Lang MD [address] [place] [address] [place] [address] PCP - General 08/06/16 07/23/18 documented as of this encounter
--- OUTSIDE RECORDS SUMMARY | 2024-05-29 17:35 | XMS_ITS | Encounter Summary ---
Author Organization [facility] Address [address] [place] [address]. [place], [place] [address] [place] [address] Care Team Providers Care Cloud Administrator Name Role Phone Tony Lang MD Primary Care Provider [phone] Encounter Details Date Type Department Care Team (Latest Contact Info) Description 11/15/[address] 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 This is good news! Any questions or concerns please feel free to call the office at [phone]. Have a blessed day, ~Dr Carrillo Verified Results LC-Fecal Fat, Qualitative [id number] 10Oct2017 10:58AM Mimi Carrillo Test Name Result Flag Reference Fats, Neutral Normal Normal (<60 Droplets/HPF) Fats, Total Normal Normal (<100 Droplets/HPF) LC-Giardia/Cryptosporidium EIA [id number] 10Oct2017 10:58AM Mimi Carrillo Test Name Result Flag Reference Giardia lamblia Ag, EIA Negative Negative Cryptosporidium EIA Negative Negative LC-Occult Blood, [place], [place] [id number] 10Oct2017 10:58AM Mimi Carrillo Test Name Result Flag Reference Occult Blood, [place], [place] TNP No Polymedco OC sampling bottle received. LC-Ova + Parasite Exam [id number] 10Oct2017 10:58AM Mimi Carrillo Test Name Result [...] No Polymedco OC sampling bottle received. TEST: [id number] Occult Blood, [place], [place] documented in this encounter Plan of Treatment Not on file documented as of this encounter Visit Diagnoses Not on filedocumented in this encounter Care Teams Cloud Administrator Relationship Specialty Start Date End Date Tony Lang MD [address] [place] [address] PCP - General 08/06/16 07/23/18 documented as of this encounter
--- OUTSIDE RECORDS SUMMARY | 2024-05-29 17:35 | XMS_ITS | Encounter Summary ---
Author Organization [facility] Address [facility] [place] [address] Care Team Providers Care Professor Of Anthropology Name Role Phone Unknown, Provider Primary Care Provider Unavaila ble Encounter Details Date Type Department Care Team (Latest Contact Info) Description 12/02/2008 2:06 PM CDT - 12/02/2008 11:59 PM CDT Hospital Encounter [facility] Default [address] [place] [address] Milton Bang MD [address] [place] [phone] Diagnostic Discharge Disposition: Home or Self Care [...] on filedocumented in this encounter Care Teams Professor Of Anthropology Relationship Specialty Start Date End Date Unknown, Provider PCP - General 08/10/08 10/27/13 documented as of this encounter
--- OUTSIDE RECORDS SUMMARY | 2024-05-29 17:35 | XMS_ITS | Encounter Summary ---
Author Organization [facility] Address [address] [place] [address]. [place], [place] [address] [place] [address] Care Team Providers Care Guideman Name Role Phone Mimi Carrillo MD Primary Care Provider [phone] Encounter Details Date Type Department Care Team (Latest Contact Info) Description 07/24/2018 11:30 AM UNIFORMER - 07/24/2018 7:30 PM UNIFORMER Hospital Encounter [facility] Diagnostic Imaging [address] [place] [address] Mimi Carrillo MD [address] [place] [address] Discharge Disposition: Home or Self Care (Routine Discharge) Social History Tobacco Use Types Packs/Day Years Used Date Smoking Tobacco: Every Day Smokeless Tobacco: Never Alcohol Use Standard Drinks/Week Comments Yes 0 (1 standard drink = 0.6 oz pur e alcohol) OCC. Comments Unknown Sex and Gender Information Value Date Recorded Sex Assigned at Not on file Legal Sex Female 2:59 PM UNIFORMER Gender Identity Not on file Sexual Orientation [...] FOOT RT 3V Routine 07/24/2018 11:55 AM UNIFORMER Right foot pain documented in this encounter Results * XR FOOT RT 3V (07/24/2018 11:55 AM UNIFORMER) Anatomical Region Laterality Modality Foot Radiographic Zehra ging 07/24/2018 2:02 PM UNIFORMER Impressions 07/24/2018 2:24 PM UNIFORMER ===== IMPRESSION: ===== 1. ??Punctate foreign bodies underlying the tarsal metatarsal joints on lateral view only. Possibly in the soft tissues or on the patient's plantar surface skin. Narrative 07/24/2018 2:24 PM UNIFORMER Examination: Right foot 3 views Exam Date/Time: [...] limb documented in this encounter Care Teams Guideman Relationship Specialty Start Date End Date Mimi Carrillo MD [address] [place] [address] PCP - General FAMILY PRACTICE 07/24/18 documented as of this encounter
--- OUTSIDE RECORDS SUMMARY | 2024-05-29 17:35 | XMS_ITS | Encounter Summary ---
Author Organization [facility] Address [facility]. [place], [place] [address] [place] [address] Care Team Providers Care Ladle Patcher Name Role Phone Mimi Carrillo MD Primary Care Provider [phone] Reason for Visit * Reason Comments URI/ENT Symptoms ear pain - right ear , productive cough, wakes up coughing, chest hurts from cough. no other symptoms. she has tried sudafed, robitusson, mucinex sinus max. symptoms x 1 week. 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 vitamin D2, ergocalciferol, [address]9039 UNITS capsule, Take 1 capsule (50,000 Units [...] file Gets together: Not on file Attends amish service: Not on file Active member of [...] chronic documented in this encounter Care Teams Ladle Patcher Relationship Specialty Start Date End Date Mimi Carrillo MD [facility] [place] [address] PCP - General FAMILY PRACTICE 07/24/18 documented as of this encounter
--- OUTSIDE RECORDS SUMMARY | 2024-05-29 17:35 | XMS_ITS | Encounter Summary ---
Author Organization [facility] Address [facility]. 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 Gender Identity Not on file Sexual Orientation Not on file documented as of this encounter Plan of Treatment Not on file documented as of this encounter Procedures Procedure Name Priority Date/Time Associated Diagnosis Comments TYPE & SCREEN STAT 08/06/2016 10:22 AM ARCHITECTURAL INSPECTOR TSH W/REFLEX Routine 08/06/2016 9:22 AM ARCHITECTURAL INSPECTOR documented in this encounter Results * TYPE & SCREEN (08/06/2016 10:22 AM ARCHITECTURAL INSPECTOR) ABO/RH O NEGATIVE 08/06/2016 1:15 PM ARCHITECTURAL INSPECTOR [facility] ANTIBODY SCREEN NEGATIVE 7 1:15 PM ARCHITECTURAL INSPECTOR [facility] SAMPLE EXPIRATION 08/09/2016 08/06/2016 1:15 PM ARCHITECTURAL INSPECTOR [facility] 08/06/2016 10:2 2 AM ARCHITECTURAL INSPECTOR 08/06/2016 11:23 AM ARCHITECTURAL INSPECTOR us Generic Conversion Md [facility] TEST ORDERAB LES Final Result Performing Organization Address [facility] Co de Phone Number [facility] [address] [place] [address], [place] [phone] * TSH W/REFLEX (SNS) (08/06/2016 9:22 AM ARCHITECTURAL INSPECTOR) TSH 0.71 0.27 - 4.20 mIU/mL 08/06/2016 11:01 AM ARCHITECTURAL INSPECTOR [facility] Comment:FREE T4 NOT INDICATE D SERUM OR PLASMA SPECIMEN / Unknown 08/06/2016 9:22 AM ARCHITECTURAL INSPECTOR 08/06/2016 10:23 AM ARCHITECTURAL INSPECTOR us Generic Conversion Md [facility] Final R esult Performing Organization Address City/[facility] Co de Phone Number [facility] [address] [place] [address], [place] [phone] documented in this encounter Visit Diagnoses Diagnosis Polyp of corpus uteri documented in this encounter Care Teams Campaign Management Senior Manager Relationship Specialty Start Date End Date [place] [address] PCP - General 08/06/16 07/23/18 documented as of this encounter
--- OUTSIDE RECORDS SUMMARY | 2024-05-29 17:35 | XMS_ITS | Encounter Summary ---
Author Organization [facility] Address [facility] [place] [address] Care Team Providers Care Commercial Loan Officer Name Role Phone Unknown, Provider Primary Care Provider Unavaila ble Encounter Details Date Type Department Care Team (Latest Contact Info) Description 10/06/2008 12:49 PM CDT - 10/07/2008 11:59 PM CDT Hospital Encounter [facility] Default [address] [place] [address] Milton Bang MD [address] [place] [phone] Diagnostic Discharge Disposition: Home or Self Care [...] on filedocumented in this encounter Care Teams Commercial Loan Officer Relationship Specialty Start Date End Date Unknown, Provider PCP - General 08/10/08 10/27/13 documented as of this encounter
--- OUTSIDE RECORDS SUMMARY | 2024-05-29 17:35 | XMS_ITS | Encounter Summary ---
Author Organization [facility] Address [address] [place] [address]. [place], [place] [address] [place] [address] Care Team Providers Care Biochemical Engineer Name Role Phone Tony Lang MD Primary Care Provider [phone] Encounter Details Date Type Department Care Team (Late st Contact Info) Description 10/10/2017 Abstract [facility] Medical Group Family Medicine [facility] [address] [place] [address] [place] [address] [place] [address] Social History Tobacco Use Types Packs/Day Years Used Date Smoking Tobacco: Never Assessed Comments Unknown Sex and Gender Information Value Date Recorded Sex Assigned at Not on file 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 Pt states that she ate at [employer] on Saturday the next day her sxs started. Pt's also ate at [employer] and has similar sxs. pt denies any [...] Tablet; TAKE 1 TABLET DAILY DIRECTED; Therapy: 20Bvg9142 to (Evaluate:15Tbx8188); Last Rx:30Xur8090 Ordered Rx By: Tony Lang; Dispense: 90 Days ; #:90 Tablet; Refill: 1; For: Restless legs syndrome; EDWARD= N; Record 2. Gabapentin 300 MG Oral Capsule; TAKE 1 CAPSULE 3 TIMES DAILY; Therapy: 61Chj3872 to (Evaluate:49Nry6051) Requested for: 26Mar2016; Last Rx:[id number] Ordered Rx By: Mimi Carrillo; Dispense: 30 Days ; #:90 Capsule; Refill: 3; For: Neuropathy; EDWARD = N; Verified Transmission to [facility]; Last Updated By: [facility]; 03/26/2016 9:12:13 AM 3. Gabapentin 300 MG Oral Capsule; take one tab po daily for 1-2 weeks and then may increase to 2 tabs at night; Therapy: 85Jfv9447 to (Last Rx:58Yqu9341) Requested for: 53Zls5870 Ordered Rx By: Tony Lang; Dispense: 0 Days ; #:90 Capsule; Refill: 2; For: Restless legs syndrome; EDWARD= N; Verified Transmission to [facility]; Last Updated By: [employer]; 12/29/2015 1:33:11 PM 4. Montelukast Sodium 10 MG Oral Tablet; TAKE 1 TABLET AT BEDTIME; Therapy: 21Sep2014 to (Last Rx:[id number]) Requested for: 26Mar2016 Ordered Rx By: Mimi Carrillo; Dispense: 0 Days ; #:30 Tablet; Refill: 3; For: Allergic rhinitis; EDWARD = N; Verified Transmission to [facility]; Last Updated By: [facility]; 03/26/20168:59:13 AM 5. Naproxen 500 MG Oral Tablet; TAKE 1 TABLET BY MOUTH TWICE DAILY; Therapy: 31Scp8497 to (Evaluate:68Rya8040) Requested for: 51Nvr5887; Last Rx:83Hsj1567 Ordered Rx By: Tony Lang; Dispense: 30 Days ; #:60 TAB; Refill: 0; For: PMH: Choking sensation, Seborrheic dermatitis; EDWARD = N; Verified Transmission to [facility]; Last Updated By: [facility]; 12/13/2014 9:22:02 AM 6. Ventolin HFA 108 (90 Base) MCG/ACT Inhalation Aerosol Solution; 1-2 puffs 30- 60 min prior to exercise; Therapy: 63Met7780 to (Last Rx:73Kdw1147) Requested for: 35Uje1434 Ordered Rx By: Dai Bianchi; Dispense: 0 Days ; #:1 X 18 GM Inhaler; Refill: 0; For: Cough variant asthma; EDWARD = N; Verified Transmission to [facility] [address]; Last Updated By: [facility]; 12/17/2016 8:40:03 AM 7. Vitamin A 27369 UNIT Oral Capsule; Take 4 capsules (100,000 units) PO QD x3days and then take 2 capsules (50,000 units) PO QD x 14 days for vitamin A deficiency; Therapy: 08Aug2016 to (Last Rx:08Aug2016) Requested for: 08Aug2016 Ordered Rx By: Mimi Carrillo; Dispense: 0 Days ; #:40 Capsule; Refill: 0; For: Vitamin A deficiency; EDWARD = N; Verified Transmission to [facility]; Last Updated By: [facility]; 08/08/2016 2:11:04 AM Allergies 1. Lodine Recorded By: Adilene Ortega; 02/18/2014 10:18:29 AM Vitals Recorded: 27Dud0489 10:33AM Temperature 97.1 F Heart Rate 71 [...] For: Diarrhea; EDWARD = N; Sent To: [facility] [address]267 2. LC-Fecal Fat, Qualitative 885524; Status:Hold For - Manual Activation; Requested for:10Oct2017; Perform:[facility]; Due:09Nov2017;Ordered; For:Diarrhea; Ordered By:Mimi Carrillo; 3. LC-Giardia/Cryptosporidium EIA 802379; Status:Hold For - Manual Activation; Requested for:10Oct2017; Perform:[facility]; Due:09Nov2017;Ordered; For:Diarrhea; Ordered By:Mimi Carrillo; 4. LC-Lactoferrin 922341; Status:Hold For - Manual Activation; Requested for:10Oct2017; Perform:[facility]; Due:09Nov2017;Ordered; For:Diarrhea; Ordered By:Mimi Carrillo; 5. LC-Occult Blood, [place]ecal, [place] 041851; Status:Hold For - Manual Activation; Requested for:10Oct2017; Perform:[facility]; Due:09Nov2017;Ordered; For:Diarrhea; Ordered By:Mimi Carrillo; 6. LC-Ova + Parasite Exam [id number]; Status:Hold For - Manual Activation; Requested for:10Oct2017; Perform:[facility]; Due:09Nov2017;Ordered; For:Diarrhea; Ordered By:Mimi Carrillo; 7. QU-CLOSTRIDIUM DIFFICILE TOXIN/GDH W/REFL TO PCR [id number]; Status:Hold For - Manual Activation; Requested for:10Oct2017; Perform:[facility]; Due:09Nov2017;Ordered; For:Diarrhea; Ordered By:Mimi Carrillo; : stool 8. Stool Culture; Status:Hold For - Manual Activation; Requested for:10Oct2017; [facility]form[facility]; Due:09Nov2017;Ordered; For:Diarrhea; Ordered By:Mimi aCrrillo; Source: : Stool Nausea 9. Ondansetron 4 MG Oral Tablet Disintegrating (Zofran ODT); Take 1 tab PO TID PRN nausea Rx By: Mimi Carrillo; Dispense: 0 Days ; #:9 Tablet; Refill: 2; For: Nausea; EDWARD = N; Verified Transmission to [facility]; Last Updated By: Zhao Brown; 10/10/2017 10:49:37 AM Discussion/Summary 1) Diarrhea/nausea 37 yo F presents c/o nausea, loose stools and abdominal cramps x3 days. Pt denies any blood in her stools. Pt denies any new pets or recent travel. Pt states that she ate at [employer] on Saturday the next day her sxs started. Pt's also ate at [employer] and has similar sxs. -discussed with pt [...] Mimi Carrillo M.D.; Oct 15 2017 5:50AM AUTOMATIC CORN GRINDER OPERATOR (Author) documented in this encounter Plan of Treatment Not on file documented as of this encounter Visit Diagnoses Not on filedocumented in this encounter Care Teams Biochemical Engineer Relationship Specialty Start Date End Date Tony Lang MD [address] [place] [address] PCP - General 08/06/16 07/23/18 documented as of this encounter
--- OUTSIDE RECORDS SUMMARY | 2024-05-29 17:35 | XMS_ITS | Encounter Summary ---
Author Organization [facility] Address [address] [place] [address]. [place], [place] [address] [place] [address] Care Team Providers Care Basket Weaver Name Role Phone Mimi Carrillo MD Primary Care Provider [phone] Reason for Visit * Reason Onset Date Comments Lab Results 07/24/2018 Encounter Details Date Type Department Care Team (Late st Contact Info) Description 07/24/2018 Telephone [facility] [address] [place] [phone] Mimi Carrillo MD [facility] [place] [address] Lab Results Social History Tobacco Use Types Packs/Day Years Used Date Smoking Tobacco: Every Day Smokeless Tobacco: Never Alcohol Use Standard Drinks/Week Comments Yes 0 (1 standard drink = 0.6 oz pur e alcohol) OCC. 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
--- OUTSIDE RECORDS SUMMARY | 2024-05-29 17:35 | XMS_ITS | Encounter Summary ---
Author Organization [facility] Address [address] [place] [address]. 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
--- OUTSIDE RECORDS SUMMARY | 2024-05-29 17:36 | XMS_ITS | Encounter Summary ---
Author Organization [facility] Address [facility]. [place], [place] [address] [place] [address] Care Team Providers Care Pipe And Tank Fabricator Name Role Phone Tony Lang MD Primary [...] (Late st Contact Info) Description 01/13/[address] 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 Gender Identity Not on file Sexual Orientation Not on file documented as of this encounter Plan of Treatment Not on file documented as of this encounter Visit Diagnoses Diagnosis Encounter for other physical therapy documented in this encounter Care Teams Pipe And Tank Fabricator Relationship Specialty Start Date End Date Tony Lang MD [address] [place] [address] PCP - General 08/06/16 07/23/18 Tony Lang MD [address] [place] [address] PCP - General 07/30/16 08/05/16 Tony Lang MD [address] [place] [address] PCP - General 07/05/16 07/29/16 Mimi Carrillo MD [address] [place] [address] PCP - General 07/04/16 07/04/16 Tony Lang MD [address] [place] [address] PCP - General 03/26/16 07/03/16 Jeff Sanford MD PCP - General 03/21/1603/25 Tony Lang MD [address] [place] [address] PCP - General 03/12/16 03/20/16 Tony Lang MD [address] [place] [address] PCP - General 08/29/15 03/11/16 Tony Lang MD [address] [place] [address] PCP - General 06/02/15 08/28/15 Tony Lang MD [address] [place] [address] PCP - General 01/13/15 06/01/15 documented as of this encounter
--- OUTSIDE RECORDS SUMMARY | 2024-05-29 17:36 | XMS_ITS | Encounter Summary ---
Author Organization [facility] Address [facility]. [place], [place] [address] [place] [address] Care Team Providers Care School Curriculum Developer Name Role Phone Tony Lang MD Primary Care Provider [phone] Tony Lang MD Primary Care Provider [phone] Tony Lnag MD Primary Care Provider Mimi Carrillo MD Primary Care Provider [phone] Tony Lang MD Primary Care Provider [phone] Jeff Sanford MD Primary Care Provider Unavailable Tony Lang MD Primary Care Provider [phone] Encounter Details Date Type Department Care Team (Late st Contact Info) Description 03/12/2016 Abstract [facility] Medical Group Family Medicine [facility] [address] [place] [address] Mimi Carrillo MD [address] [place] [id number] Social History Tobacco Use Types Packs/Day Years Used Date Smoking Tobacco: Never Assessed Comments Unknown Sex and Gender Information Value Date Recorded Sex Assigned at Not on file 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 Gabapentin 300 MG Oral Capsule; take one tab po daily for 1-2 weeks and then may increase to 2 tabs at night; Therapy: 67Lxl4151 to (Last Rx:32Cbb5578) Requested for: 96Yae7731 Ordered 3. Montelukast Sodium 10 MG Oral Tablet; TAKE 1 TABLET AT BEDTIME; Therapy: 78Tjm5004 to (Last Rx:[id number]) Requested for: 82Cgf5857 Ordered 4. Naproxen 500 MG Oral Tablet; TAKE 1 TABLET BY MOUTH TWICE DAILY; Therapy: 21Sep2014 to (Evaluate:99Clt7464) Requested for: 49Gik9796; Last Rx:[id number] Ordered Allergies 1Dillon Hall Vitals Recorded: 12Mar2016 [...] - Specimen/Data Collected; Done: 12Mar2016 Perform:[facility]; Due:11Apr2016; Last Updated By:Natalie Arroyo; 03/12/2016 9:05:12 AM;Ordered; For:DUB (dysfunctional uterine bleeding); Ordered By:Mimi Carrillo; 3. US PELVIS NON OB COMPLETE; Status:Hold For - Scheduling; Requested for:12Mar2016; [facility]; Order Comments:35 yo F [...] I will just wait to see the REAL ESTATE TEACHER. -REAL ESTATE TEACHER referral placed -Pelvic U/S ordered -CBC ordered. [...] Mimi Carrillo M.D.; Mar 12 2016 9:23AM AIRPLANE REFUELER (Author) documented in this encounter Plan of [...] MD LABORATORY Final Result Performing Organization Address City/State/[facility] Co de Phone Number [employer] TO EPIC CONVERSION documented in this encounter Visit Diagnoses Not on filedocumented in this encounter Care Teams School Curriculum Developer Relationship Specialty Start Date End Date Tony Lang MD [address] [place], [place] [address] PCP - General 08/06/16 07/23/18 Tony Lang MD [address] [place] [address] PCP - General 07/30/16 08/05/16 Tony Lang MD [address] [place], [place] [address] PCP - General 07/05/16 07/29/16 Mimi Carrillo MD [address] [place] [address] PCP - General 07/04/16 07/04/16 Tony Lang MD [address] [place], [place] [address] PCP - General 03/26/16 07/03/16 Jeff Sanford MD PCP - General 03/21/1603/25 Tony Lang MD [place], [place] [address] PCP - General 03/12/16 03/20/16 documented as of this encounter
--- OUTSIDE RECORDS SUMMARY | 2024-05-29 17:36 | XMS_ITS | Encounter Summary ---
Author Organization [facility] Address [address] [place] [address]. [place], [place] [address] [place] [address] Care Team Providers Care Auger Supervisor Name Role Phone Tony Lang MD Primary Care Provider [phone] Tony Lang MD Primary Care Provider Tony Lang MD Primary Care Provider Mimi Carrillo MD Primary Care Provider [phone] Tony Lang MD Primary Care Provider Jeff Sanford MD Primary Care Provider Unavailable Tony Lang MD Primary Care Provider Tony Lang MD Primary Care Provider Encounter Details Date Type Department Care Team (Late st Contact Info) Description 08/29/2015 Abstract [facility] Medical Group Family Medicine [address] [address] Tony Lang MD [address] [place] [address] Social History Tobacco Use Types Packs/Day Years Used Date Smoking Tobacco: Never Assessed Comments Unknown Sex and Gender Information Value Date Recorded Sex Assigned at Not on file Legal Sex Female 2:59 PM ACCREDITED PHARMACY TECHNICIAN Gender Identity Not on file Sexual [...] been started, nor has she started any ncdo-xgu-xxyjijw supplements. There is been no change in [...] Tablet; TAKE 1 TABLET AT BEDTIME; Therapy: 78Qjx6368 to (Last Rx:64Izf4533) Requested for: 35Nov2955 Ordered 2. Naproxen 500 MG Oral Tablet; TAKE 1 TABLET BY MOUTH TWICE DAILY; Therapy: 61Jet7693 to (Evaluate:99Alg1028) Requested for: 06Vgf0285; Last Rx:49Izn4475 Ordered 3. Selenium Sulfide 2.5 % External Lotion; Apply to affected areas and lather with small amount of water. Leave on your skin for 10 minutes. Rinse it off; Therapy: 24Tcq6096 to (Last Rx:71Cip4437) Requested for: 16Eus7157 Ordered 4. Sulfamethoxazole-Trimethoprim 800-160 MG Oral Tablet; TAKE 1 TABLET TWICE DAILY; Therapy: 91Tcp7216 to (Evaluate:42Vgh8754) Requested for: 58Syd2946; Last Rx:73Tch2749 Ordered 5. Triamcinolone Acetonide 0.1 % External Ointment; APPLY SPARINGLY TO AFFECTED AREA(S) TWICE DAILY; Therapy: 05Kro4392 to (Last Rx:93Ttc1243) Requested for: 81Ltm6131 Ordered Allergies 1. Isabel Vitals Recorded: 29Aug2015 [...] Status:Hold For - Manual Activation; Requested for:29Aug2015; [email or web address]; Due:28Sep2015;Ordered; For:Irregular menses; Ordered By:Tony Lang; 2. Iron Profile W TIBC; Status:Hold For - Manual Activation; Requested for:29Aug2015; Perform:[facility]; Due:28Sep2015;Ordered; For:Irregular menses; Ordered By:Tony Lang; 3. TSH W Reflex Free T4; Status:Hold For - Manual Activation; Requested for:29Aug2015; Perform:[facility]; Due:28Sep2015;Ordered; For:Irregular menses; Ordered By:Tony Lang; 4. Vitamin B12 And Folate; Status:Hold For - Manual Activation; Requested for:29Aug2015; Perform:[facility]; Due:08Xjc7443;Ordered; For:Irregular menses; Ordered By:Tony Lang; 5. Vitamin D 25 - Hydroxy; Status:Hold For - Manual Activation; Requested for:29Aug2015; Perform:[facility]; Due:01Ltt6086;Ordered; For:Irregular menses; Ordered By:Tony Lnag; Right flank pain 6. Urinalysis ( UA ) W Microscopic; Status:Hold For - Manual Activation; Requested for:29Aug2015; Perform:[facility]; Due:64Rkn0647;Ordered; For:Right flank pain; Ordered By:Tony Lang; Source: : Clean Catch Signatures Electronically signed by : Tony Lang M.D.; Aug 29 2015 10:00AM ACCREDITED PHARMACY TECHNICIAN (Author) documented in this encounter Plan of [...] URINE ORDERABLES Final Result Performing Organization Address [facility] de Phone Number [employer] TO EPIC CONVERSION [...] MD LABORATORY Final Result Performing Organization Address [facility]/ZIP Co de Phone Number [employer] TO [...] MD LABORATORY Final Result Performing Organization Address [facility] de Phone Number [employer] TO EPIC CONVERSION [...] MD LABORATORY Final Result Performing Organization Address [facility] Co de Phone Number [employer] TO [...] POTENTIAL INTOXICATION ??>100 ? TESTING PERFORMED AT [address] [address] 08/29/2015 10:1 1 AM CDT 08/29/2015 10:11 [...] on filedocumented in this encounter Care Teams Auger Supervisor Relationship Specialty Start Date End Date Tony Lang MD [address] [place], [place] [id number] PCP - General 08/06/16 07/23/18 Tony Lang MD [address] [place], [place] [address] PCP - General 07/30/16 08/05/16 Tony Lang MD [address] [place], [place] [address] PCP - General 07/05/16 07/29/16 Mimi Carrillo MD [address] [place], [place] [address] PCP - General 07/04/16 07/04/16 Tony Lang MD [address] [place], [place] [address] PCP - General 03/26/16 07/03/16 Jeff Sanford MD PCP - General 03/21/1603/25 Tony Lang MD [address] [place], [place] [address] PCP - General 03/12/16 03/20/16 Tony Lang MD [address] [place], [place] [address] PCP - General 08/29/15 03/11/16 documented as of this encounter
--- OUTSIDE RECORDS SUMMARY | 2024-05-29 17:36 | XMS_ITS | Encounter Summary ---
Author Organization [facility] Address [address] [place] [address]. [place], [place] [address] [place] [address] Care Team Providers Care Executive Vice President Of Sales Name Role Phone Tony Lang MD Primary Care Provider Tony Lang MD Primary Care Provider Tony Lang MD Primary Care Provider Mimi Carrillo MD Primary Care Provider [phone] Tony Lang MD Primary Care Provider Jeff Sanford MD Primary Care Provider Unavailable Tony Lang MD Primary Care Provider Tony Lang MD Primary Care Provider Encounter Details Date Type Department Care Team (Late st Contact Info) Description 09/06/2015 Abstract [facility] Medical Group Family Medicine [address] [address] Tony Lang MD [address] [place] [address] Social History Tobacco Use Types Packs/Day Years Used Date Smoking Tobacco: Never Assessed Comments Unknown Sex and Gender Information Value Date Recorded Sex Assigned at Not on file Legal Sex Female 2:59 PM PROBATION AND PATROL AGENT Gender Identity Not on file Sexual [...] Tablet; TAKE 1 TABLET AT BEDTIME; Therapy: 30Ygv8693 to (Last Rx:19Saq7453) Requested for: 37Zta5265 Ordered 2. Naproxen 500 MG Oral Tablet; TAKE 1 TABLET BY MOUTH TWICE DAILY; Therapy: 16Gba6286 to (Evaluate:57Gpy4190) Requested for: 75Eyl9231; Last Rx:61Xdm9983 Ordered 3. Selenium Sulfide 2.5 % External Lotion; Apply to affected areas and lather with small amount of water. Leave on your skin for 10 minutes. Rinse it off; Therapy: 85Fdz3832 to (Last Rx:85Lye2900) Requested for: 32Zgn5098 Ordered 4. Sulfamethoxazole-Trimethoprim 800-160 MG Oral Tablet; TAKE 1 TABLET TWICE DAILY; Therapy: 08Rrs0944 to (Evaluate:65Yee6849) Requested for: 15Xyn1055; Last Rx:[id number] Ordered 5. Triamcinolone Acetonide 0.1 % External Ointment; APPLY SPARINGLY TO AFFECTED AREA(S) TWICE DAILY; Therapy: 38Lbf1262 to (Last Rx:95Rnv7565) Requested for: 32Xru3902 Ordered 6. Vitamin D (Ergocalciferol) 25634 UNIT Oral Capsule; TAKE 1 CAPSULE WEEKLY; [...] Tony Lang M.D.; Sep 06 2015 9:46AM PROBATION AND PATROL AGENT (Author) documented in this encounter Plan of Treatment Not on file documented as of this encounter Visit Diagnoses Not on filedocumented in this encounter Care Teams Executive Vice President Of Sales Relationship Specialty Start Date End Date Tony Lang MD [address] [place], [place] [address] PCP - General 08/06/16 07/23/18 Tony Lang MD [address] [place], [place] [address] PCP - General 07/30/16 08/05/16 Tony Lang MD [address] [place], [place] [address] PCP - General 07/05/16 07/29/16 Mimi Carrillo MD [address] [place], [place] [address] PCP - General 07/04/16 07/04/16 Tony Lang MD [address] [place], [place] [address] PCP - General 03/26/16 07/03/16 Jeff Sanford MD PCP - General 03/21/1603/25 Tony Lang MD [address] [place], [place] [address] PCP - General 03/12/16 03/20/16 Tony Lang MD [address] [place], [place] [address] PCP - General 08/29/15 03/11/16 documented as of this encounter
--- OUTSIDE RECORDS SUMMARY | 2024-05-29 17:36 | XMS_ITS | Encounter Summary ---
Author Organization [place] Address [facility]6 [facility]. [place], [place] [address] [place] [address] Care Team Providers Care Cementer Machine Applicator Name Role Phone Tony Lang MD Primary Care Provider [phone] Tony Lang MD Primary Care Provider [phone] Tony Lang MD Primary Care Provider [phone] Mimi Carrillo MD Primary Care Provider [phone] Tony Lang MD Primary Care Provider [phone] Encounter Details Date Type Department Care Team (Latest Contact Info) Description 03/30/2016 Abstract [facility] Medical Group Social History Tobacco Use Types Packs/Day Years Used Date Smoking Tobacco: Never Assessed Comments Unknown Sex and Gender Information Value Date Recorded Sex Assigned at Not on file Legal Sex Female 2:59 PM SNOW REMOVAL/PLOWING Gender Identity Not on file Sexual Orientation Not on file documented as of this encounter Plan of Treatment Not on file documented as of this encounter Visit Diagnoses Not on filedocumented in this encounter Care Teams Cementer Machine Applicator Relationship Specialty Start Date End Date Tony Lang MD [address] [place], [place] [address] PCP - General 08/06/16 07/23/18 Tony Lang MD [address] [place], [place] [address] PCP - General 07/30/16 08/05/16 Tony Lang MD [address] [place] [address] PCP - General 07/05/16 07/29/16 Mimi Carrillo MD [address] [place] [address] PCP - General 07/04/16 07/04/16 Tony Lang MD [address] [place] [address] PCP - General 03/26/16 07/03/16 documented as of this encounter
--- OUTSIDE RECORDS SUMMARY | 2024-05-29 17:36 | XMS_ITS | Encounter Summary ---
Author Organization [facility] Address [address] [place] [address]. [place], [place] [address] [place] [address] Care Team Providers Care Distillery Miller Helper Name Role Phone Tony Lang MD Primary Care Provider [phone] Tony Lang MD Primary Care Provider [phone] Tony Lang MD Primary Care Provider Mimi Carrillo MD Primary Care Provider [phone] Tony Lang MD Primary Care Provider Jeff Hester MD Primary Care Provider Unavailable Tony Lang MD Primary Care Provider [phone] Tony Lang MD Primary Care Provider Encounter Details Date Type Department Care Team (Late st Contact Info) Description 08/29/[address] [facility] [place] [place] [id number] Tony Lang MD [address] [place] [address] Social History Tobacco Use Types Packs/Day Years Used Date Smoking Tobacco: Never Assessed Comments Unknown Sex and Gender Information Value Date Recorded Sex Assigned at Not on file Legal Sex Female 2:59 PM SUPERVISOR COOK ROOM Gender Identity Not on file Sexual Orientation [...] URINE CLEAN CATCH 08/29/2015 9:24 PM CDT [facility] COLOR (U) YELLOW 08/29/2015 10:25 PM CDT [facility] TRANSPARENCY CLOUDY 08/29/2015 10:25 PM CDT [facility] SPECIFIC GRAVITY (U) 1.024 1.001 - 1.030 08/29/2015 10:25 PM CDT [facility] U PH 5.0 5.0 - 9.0 08/29/2015 10:25 PM CDT [facility] LEUKOCYTES (U) NEGATIVE NEGATIVE 08/29/2015 10:25 PM CDT [facility] NITRITES NEGATIVE NEGATIVE 08/29/2015 10:25 PM CDT [facility] PROTEIN (U) NEGATIVE <30 MG/DL 08/29/2015 10:25 PM CDT [facility] URINE GLUCOSE NEGATIVE NEGATIVE MG/DL 08/29/2015 10:25 PM CDT [facility] KETONES MG/DL (U) NEGATIVE NEGATIVE MG/DL 08/29/2015 10:25 PM CDT [facility] UROBILINOGEN NEGATIVE NEGATIVE MG/DL 08/29/2015 10:25 PM CDT [facility] BILIRUBIN (U) NEGATIVE NEGATIVE MG/DL 08/29/2015 10:25 PM CDT [facility] BLOOD (U) SMALL(A) NEGATIVE 08/29/2015 10:25 PM CDT [facility] SQUAMOUS EPITHELIALS MODERATE /LPF 08/29/2015 10:25 PM CDT [facility] TRANSITIONAL EPI RARE /HPF 08/29/19 16 10:25 PM CDT [facility] MUCUS FEW /LPF 08/29/2015 10:25 PM CDT [facility] WBC/HPF <1 <6 /HPF 08/29/2015 10:25 PM CDT [facility] RBC/HPF <1 <6 /HPF 08/29/2015 10:25 PM CDT [facility] CA OXALATE CRYSTALS RARE /HPF 08/29/2015 10:25 PM CDT [facility] 08/29/2015 10:1 1 AM CDT 08/29/2015 9:38 PM CDT us Generic Conversion Md HESTER URINE ORDERABLES Final Result [facility] [address] [place] [address], * (ABNORMAL) VITAMIN D, 25 [place] (08/29/2015 10:11 AM CDT) VITAMIN D 25 HYDROXY S/P/B 18(L) 30 - 100 NG/ML 08/30/2015 6:21 PM CDT [facility] () [facility] Comment: SUPPLEMENTING WITH VITAMIN D2 MAY RESULT IN FALSELY LOW RESULTS, CLINICAL CORRELATION NEEDED. ? INTERPRETATION ? DEFICIENT ??<20 ?INSUFFICIENT 20-30 ?SUFFICIENT 30-100 POTENTIAL INTOXICATION ??>100 TESTING PERFORMED AT [address] [address] 08/29/2015 10:1 1 AM CDT 08/29/2015 9:38 PM CDT us Generic Conversion Md HESTER LABORATORY Final [facility] Performing Organization Address City/[facility]/ZIP Co de Phone Number [facility] [address] [place] [address], [place] [phone] * TSH W/REFLEX (SNS) (08/29/2015 10:11 AM CDT) TSH 0.78 0.27 - 4.20 mIU/mL 08/29/2015 10:30 PM CDT [facility] Comment:FREE T4 NOT INDICATE D SERUM OR PLASMA SPECIMEN / Unknown 08/29/2015 10:11 AM CDT 08/29/2015 9:37 PM CDT us Generic Conversion Md HESTER LABORATORY Final R sienna Performing Organization Address City/[facility]/ZIP Co de Phone Number [facility] [address] [place] [address], [place] [phone] * (ABNORMAL) IRON SATURATION PANEL (08/29/2015 10:11 AM CDT) IRON 51 37 - 145 mcg/dL 08/29/2015 10:30 PM CDT [facility] IRON BINDING CAPACITY 375 250 - 450 mcg/dL 08/29/2015 10:30 PM CDT [facility] IRON SATURATION 14(L) 20 - 55 % 6 10:30 PM CDT [facility] UNBOUND IRON BINDING CAPACITY 324 112 - 360 mcg/dL 08/29/2015 10:30 PM CDT [facility] 08/29/2015 10:1 1 AM CDT 08/29/2015 9:37 PM CDT us Generic Conversion Md HESTER LABORATORY Final R esult [facility] [address] [place] [address], * (ABNORMAL) CBC W/DIFF AUTOMATED (08/29/2015 10:11 AM CDT) WBC 9.5 4.8 - 10.8 X10'3/uL 08/29/2015 9:55 PM CDT [facility] RBC 4.93 4.20 - 5.40 X10'6/uL 08/29/2015 9:55 PM CDT [facility] HGB 14.6 12.0 - 16.0 g/dL 08/29/2015 9:55 PM CDT [facility] HCT 45.0 38.0 - 48.0 % 08/29/2015 9:55 PM CDT [facility] MCV 91.3 81.0 - 99.0 fL 08/29/2015 9:55 PM CDT [facility] MCH 29.6 27.0 - 31.0 pg 08/29/2015 9:55 PM CDT [facility] MCHC 32.4 32.0 - 36.0 g/dL 08/29/2015 9:55 PM CDT [facility] RDW 13.2 11.5 - 14.5 % 08/29/2015 9:55 PM CDT [facility] PLT 239 130 - 400 X10'3/uL 08/29/2015 9:55 PM CDT [facility] MPV 11.5 9.3 - 12.2 fL 08/29/2015 9:55 PM CDT [facility] DIFFERENTIAL TYPE AUTOMATED 08/29/2015 9:55 PM CDT [facility] NEUTROPHILS % 61.2 43.0 - 65.0 % 08/29/2015 9:55 PM CDT [facility] LYMPHOCYTES % 29.1 20.0 - 46.0 % 08/29/2015 9:55 PM CDT [facility] MONOCYTES % 5.1 5.0 - 12.0 % 08/29/2015 9:55 PM CDT [facility] EOSINOPHILS 3.9(H) 1.0 - 3.0 % 08/29/2015 9:55 PM CDT [facility] BASOPHILS 0.5 0.0 - 1.0 % 08/29/2015 9:55 PM CDT [facility] IMMATURE GRANS % 0.2 0.0 - 1.0 % 08/29/2015 9:55 PM CDT [facility] 08/29/2015 10:1 1 AM CDT 08/29/2015 9:37 PM CDT us Generic Conversion Md HESTER LABORATORY Final R esult [facility] [address] [place] [address], * VITAMIN B12 / FOLATE (08/29/2015 10:11 AM CDT) VITAMIN B12 S/P/B 364 211 - 946 pg/mL 08/29/2015 10:30 PM CDT [facility] FOLATE 8.8 7.3 - 26.1 ng/mL 08/29/2015 10:31 PM CDT [facility] 08/29/2015 10:1 1 AM CDT 08/29/2015 9:37 PM CDT us Jeff Cisse Md, MD LABORATORY Final R esult [facility] [address] [place] [address], documented in this encounter Visit Diagnoses Diagnosis Irregular menstruation Irregular menstrual cycle documented in this encounter Care Teams Distillery Miller Helper Relationship Specialty Start Date End Date Tony Lang MD [address] [place], [place] [id number] PCP - General 08/06/16 07/23/18 Tony Lang MD [address] [place], [place] 6[address]89 PCP - General 07/30/16 08/05/16 Tony Lang MD [address] [place], [place] 107259 PCP - General 07/05/16 07/29/16 Mimi Carrillo MD [address] [place], [place] 437239 PCP - General 07/04/16 07/04/16 Tony [place] MD [place] 6[address]19 PCP - General 03/26/16 07/03/16 Jeff Hester MD PCP - General 03/21/1603/25 Tony Lang MD [address], [place] 824149 PCP - General 03/12/16 03/20/16 Tony Lang MD [address] [place] [address] PCP - General 08/29/15 03/11/16 documented as of this encounter
--- OUTSIDE RECORDS SUMMARY | 2024-05-29 17:36 | XMS_ITS | Encounter Summary ---
Author Organization [facility] Address [facility] [place] [address] [place] [address] Care Team Providers Care Process Safety Management Engineer Name Role Phone Tony Lang MD Primary Care Provider [phone] Tony Lang MD Primary Care Provider [phone] Tony Lang MD Primary Care Provider [phone] Jack Neely MD Primary Care Provider [phone] Tony Lang MD Primary Care Provider [phone] Encounter Details Date Type Department Care Team (Late st Contact Info) Description 03/26/2016 Abstract [facility] Family Medicine [facility] [address] [place] [address] Jack Neely MD [address] [place], [place] [id number] Social History Tobacco Use Types Packs/Day Years Used Date Smoking Tobacco: Never Assessed Comments Unknown Sex and Gender Information Value Date Recorded Sex Assigned at Not on file Legal Sex Female 2:59 PM BUSHING AND BROACH OPERATOR Gender Identity Not on file Sexual [...] pt that she should follow up with MESSAGE CLERK. A referral was placed at her last [...] Tablet; TAKE 1 TABLET DAILY DIRECTED; Therapy: 35Pbf2265 to (Evaluate:26Jun2016); Last Rx:[id number] Ordered 2. Gabapentin 300 MG Oral Capsule; take one tab po daily for 1-2 weeks and then may increase to 2 tabs at night; Therapy: 39Ozz2429 to (Last Rx:[id number]) Requested for: [id number] Ordered 3. Montelukast Sodium 10 MG Oral Tablet; TAKE 1 TABLET AT BEDTIME; Therapy: 21Sep2014 to (Last Rx:[id number]) Requested for: [id number] Ordered 4. Naproxen 500 MG Oral Tablet; TAKE 1 TABLET BY MOUTH TWICE DAILY; Therapy: 21Sep2014 to (Evaluate:48Eax8780) Requested for: 03Ydk8267; Last Rx:[id number] Ordered Allergies 1. Lodine Immunizations Influenza --- [...] (Report) FRANCISCO YAP ADMIT/SERVICE DATE: 03/21/16 ACCT: [id number] DISCHARGE DATE: : 1980 SEX: F ORD SITE: [facility] PT TYPE: REG CLI ORDERING MD: JACK NEELY MD STUDY DATE REPORT # ORDER # EXT ORDER ID 03/21/16 [id number] PROC CODE: [id number] PROCEDURE DESCRIPTION: US PELVIS [...] rhinitis; EDWARD = N; Verified Transmission to [facility] [address]; Last Updated By: [facility]; 03/26/20168:59:13 AM Hypothyroidism 2. TSH W Reflex Free T4; Status:In Progress - Specimen/Data Collected; Done: 26Mar2016 Perform:[facility]; Due:25Apr2016; Last Updated By:Natalie Arroyo; 03/26/2016 9:20:33 AM;Ordered; For:Hypothyroidism; Ordered By:Jack Neely; Neuropathy 3. Gabapentin 300 MG Oral Capsule; TAKE 1 CAPSULE 3 TIMES DAILY Rx By: Jack Neely; Dispense: 30 Days ; #:90 Capsule; Refill: 3; For: Neuropathy; EDWARD = N; Verified Transmission to [facility] 84702; Last Updated By: [facility]; 03/26/2016 9:12:13 AM Discussion/Summary 1) Adenxal cyst/DUB 35 yo F presents to go over the lab results letter that was sent to her regarding her recent pelvicU/S which showed a thick-walled cyst in the right adnexa that radiologists are thinking is likelya hemorrhagic cyst. -Discussed with pt that she should follow up with MESSAGE CLERK. A referral was placed at her last [...] Jack Neely M.D.; Mar 26 2016 6:49PM BUSHING AND BROACH OPERATOR (Author) documented in this encounter Plan [...] MD LABORATORY Final Result Performing Organization Address City/State/[facility] de Phone Number [employer] TO EPIC CONVERSION documented in this encounter Visit Diagnoses Not on filedocumented in this encounter Care Teams Process Safety Management Engineer Relationship Specialty Start Date End Date Tony Lang MD [address], [place] [phone] PCP - General 08/06/16 07/23/18 Tony Lang MD [address], [place] 946699 PCP - General 07/30/16 08/05/16 Tony Lang MD [address] [place], [place] 757319 PCP - General 07/05/16 07/29/16 Jack Neely MD [place], [place] 618089 PCP - General 07/04/16 07/04/16 Tony Lang MD [address] [place] [address] PCP - General 03/26/16 07/03/16 documented as of this encounter
--- OUTSIDE RECORDS SUMMARY | 2024-05-29 17:36 | XMS_ITS | Encounter Summary ---
Author Organization [facility] Address [address] [place] [address]. [place], [place] [address] [place] [address] Care Team Providers Care Guest Service Team Leader Name Role Phone Tony Lang MD Primary [...] Abstract [facility] [place] [address] Tony Lang MD [address] [place] [address] Social History Tobacco Use Types Packs/Day Years Used Date Smoking Tobacco: Never Assessed Comments Unknown Sex and Gender Information Value Date Recorded Sex Assigned at Not on file Legal Sex Female 2:59 PM ETCHER APPRENTICE Gender Identity Not on file Sexual Orientation Not on file documented as of this encounter Plan of Treatment Not on file documented as of this encounter Procedures Procedure Name Priority Date/Time Associated Diagnosis Comments URINE BACTERIA CULTURE Routine 06/02/2015 7:32 AM ETCHER APPRENTICE documented in this encounter Results * CULTURE URINE (06/02/2015 7:32 AM ETCHER APPRENTICE) SPEC DESCRIPTION URINE CLEAN CATCH 06/02/2015 2:52 PM ETCHER APPRENTICE [facility] SPECIAL REQUESTS NO SPECIAL REQUEST 06/02/2015 2:52 PM ETCHER APPRENTICE [facility] CULTURE RESULT NO GROWTH 2 DAYS 06/04/2015 8:31 AM ETCHER APPRENTICE [facility] URINE SPECIMEN OBTAINED BY CLEAN CATCH PROCEDURE / Unknown 06/02/2015 7:32 AM ETCHER APPRENTICE 06/02/2015 4:20 PM ETCHER APPRENTICE us Generic Conversion Md HESTER MICROBIOLOGY - GENERAL ORDERABLES Final Result Performing Organization Address City/State/[facility] de Phone Number [facility] [address] [place] [address], documented in this encounter Visit Diagnoses Diagnosis Unspecified symptoms and signs involving the genitourinary system documented in this encounter Care Teams Guest Service Team Leader Relationship Specialty Start Date End Date Tony Lang MD [address], [place] [phone] PCP - General 08/06/16 07/23/18 Tony Lang MD [address], [place] [address]6729 PCP - General 07/30/16 08/05/16 Tony Lang MD [address] [place], [place] [address] PCP - General 07/05/16 07/29/16 Mimi Carrillo MD [address], [place] [address] PCP - General 07/04/16 07/04/16 Tony Lang MD [address] [place] [address] PCP - General 03/26/16 07/03/16 Jeff Hester MD PCP - General 03/21/1603/25 Tony Lang MD [address] [place] [address] PCP - General 03/12/16 03/20/16 Tony Lang MD [address] [place] [address] PCP - General 08/29/15 03/11/16 Tony Lang MD [address] [place] [address] PCP - General 06/02/15 08/28/15 documented as of this encounter
--- OUTSIDE RECORDS SUMMARY | 2024-05-29 17:36 | XMS_ITS | Encounter Summary ---
Author Organization [facility] Address [address] [place] [address]. [place], [place] [address] [place] [address] Care Team Providers Care Bowling Alley Manager Name Role Phone Tony Lang MD Primary Care Provider Tony Lang MD Primary Care Provider Tony Lang MD Primary Care Provider Mimi Carrillo MD Primary Care Provider [phone] Tony Lang MD Primary Care Provider Jeff Sanford MD Primary Care Provider Unavailable Tony Lang MD Primary Care Provider Tony Lang MD Primary Care Provider Encounter Details Date Type Department Care Team (Late st Contact Info) Description 09/12/2015 Abstract [facility] Medical Group Family Medicine [address] [address] Tony Lang MD [address] [place] [address] Social History Tobacco Use Types Packs/Day Years Used Date Smoking Tobacco: Never Assessed Comments Unknown Sex and Gender Information Value Date Recorded Sex Assigned at Not on file Legal Sex Female 2:59 PM SECURITY NURSE Gender Identity Not on file Sexual Orientation [...] Tablet; TAKE 1 TABLET AT BEDTIME; Therapy: 32Mqg9717 to (Last Rx:[id number]) Requested for: [id number] Ordered 2. Naproxen 500 MG Oral Tablet; TAKE 1 TABLET BY MOUTH TWICE DAILY; Therapy: 21Sep2014 to (Evaluate:76Vbn9744) Requested for: 14Irv3893; Last Rx:[id number] Ordered 3. Selenium Sulfide 2.5 % External Lotion; Apply to affected areas and lather with small amount of water. Leave on your skin for 10 minutes. Rinse it off; Therapy: 50Bwd7126 to (Last Rx:21Sep2014) Requested for: 21Sep2014 Ordered 4. Sulfamethoxazole-Trimethoprim 800-160 MG Oral Tablet; TAKE 1 TABLET TWICE DAILY; Therapy: 00Zdn8461 to (Evaluate:75Kci8590) Requested for: 67Ptl6634; Last Rx:[id number] Ordered 5. Triamcinolone Acetonide 0.1 % External Ointment; APPLY SPARINGLY TO AFFECTED AREA(S) TWICE DAILY; Therapy: 21Sep2014 to (Last Rx:21Sep2014) Requested for: [id number] Ordered 6. Vitamin D (Ergocalciferol) 22378 UNIT Oral Capsule; TAKE 1 CAPSULE WEEKLY; [...] 30-100 POTENTIAL INTOXICATION >100 [place] [address] Urinalysis ( UA ) W Microscopic 29Aug2015 10:11AM Tony Lang Test Name Result Flag Reference Specimen Type URINE CLEAN CATCH Urine Color YELLOW Urine Clarity CLOUDY Urine Specific Johnson 1.024 1.001-1.030 Urine pH 5.0 5.0-9.0 Urine [...] Oxalate Crystal RARE /HPF *A1C In Office [id number] 07:50AM Tony Lang Test Name Result Flag [...] Acute UTI; EDWARD = N; Sent To: [facility] [address] Signatures Electronically signed by : Tony Lang M.D.; Sep 12 2015 10:00AM SECURITY NURSE (Author) documented in this encounter Plan of Treatment Not on file documented as of this encounter Visit Diagnoses Not on filedocumented in this encounter Care Teams Bowling Alley Manager Relationship Specialty Start Date End Date Tony Lang MD [address] [place], [place] [address] PCP - General 08/06/16 07/23/18 Tony Lang MD [address] [place], [place] [address]319 PCP - General 07/30/16 08/05/16 Tony Lang MD [address] [place], [place] [address]19 PCP - General 07/05/16 07/29/16 Mimi Carrillo MD [address] [place] [address] PCP - General 07/04/16 07/04/16 Tony Lang MD [address] [place], [place] [address]4429 PCP - General 03/26/16 07/03/16 Jeff Sanford MD PCP - General 03/21/1603/25 Tony Lang MD [address] [place], [place] [address] PCP - General 03/12/16 03/20/16 Tony Lang MD [address] [place], [place] [address]39 PCP - General 08/29/15 03/11/16 documented as of this encounter
--- OUTSIDE RECORDS SUMMARY | 2024-05-29 17:36 | XMS_ITS | Encounter Summary ---
Author Organization [facility] Address [facility]. 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 Gender Identity Not on file Sexual Orientation Not on file documented as of this encounter Plan of Treatment Not on file documented as of this encounter Visit Diagnoses Not on filedocumented in this encounter Care Teams Receiving Weigher Relationship Specialty Start Date End Date Tony [place] [address] PCP - General 08/06/16 07/23/18 Tony Lang MD [address] [place], [place] [address] PCP - General 07/30/16 08/05/16 Tony Lang MD [address] [place] [address] PCP - General 07/05/16 07/29/16 Mimi Carrillo MD [address] [place], [place] [address] PCP - General 07/04/16 07/04/16 Tony Lang MD [address], [place] [address] PCP - General 03/26/16 07/03/16 Jeff Sanford MD PCP - General 03/21/1603/25 Tony Lang MD [address], [place] [address] PCP - General 03/12/16 03/20/16 Tony Lang MD [address] [place] [address] PCP - General 08/29/15 03/11/16 Tony Lang MD [address], [place] [address]689 PCP - General 06/02/15 08/28/15 Tony Lang MD [address], [place] 269509 PCP - General 01/13/15 06/01/15 documented as of this encounter
--- OUTSIDE RECORDS SUMMARY | 2024-05-29 17:36 | XMS_ITS | Encounter Summary ---
Author Organization [facility] Address [facility]6 [facility]. [place], [place] [address] [place] [address] Care Team Providers Care Face Man Name Role Phone Tony Lang MD Primary [...] (Late st Contact Info) Description 10/19/2014 Abstract [facility] Medical [facility] Family Medicine [place] [address] [place] [address] Tony Lang MD [facility] [place] [address] Social History Tobacco Use Types Packs/Day Years Used Date Smoking Tobacco: Never Assessed Comments Unknown Sex and Gender Information Value Date Recorded Sex Assigned at Not on file Legal Sex Female 2:59 PM OPERATIONAL COMMUNICATION CHIEF Gender Identity Not on file Sexual Orientation [...] Rinse it off; Therapy: 21Sep2014 to (Last Rx:[id number]) Requested for: [id number] Ordered 4. Triamcinolone Acetonide 0.1 % External Ointment; APPLY SPARINGLY TO AFFECTED AREA(S) TWICE DAILY; Therapy: 21Sep2014 to (Last Rx:[id number]) Requested for: [id number] Ordered Allergies 1. Lodine Vitals Recorded: 19Oct2014 [...] Tony Lang M.D.; Oct 19 2014 9:29AM OPERATIONAL COMMUNICATION CHIEF (Author) documented in this encounter Plan of Treatment Not on file documented as of this encounter Visit Diagnoses Not on filedocumented in this encounter Care Teams Face Man Relationship Specialty Start Date End Date Tony Lang MD [place], [place] [phone] PCP - General 08/06/16 07/23/18 [place] [address] PCP - General 07/30/16 08/05/16 [place] [address] PCP - General 07/05/16 07/29/16 [place] [address] PCP - General 07/04/16 07/04/16 Tony Lang MD [address] [place] [address] PCP - General 03/26/16 07/03/16 Jeff Sanford MD PCP - General 03/21/1603/25 Tony Lang MD [address] [place] [address] PCP - General 03/12/16 03/20/16 Tony Lang MD [address] [place] [address] PCP - General 08/29/15 03/11/16 Tony Lang MD [address] [place] [address] PCP - General 06/02/15 08/28/15 Tony Lang MD [address] [place] [address] PCP - General 01/13/15 06/01/15 Tony Lang MD [address] [place] [address] PCP - General 01/11/15 01/12/15 Tony Lang MD [address] [place] [address] PCP - General 01/06/15 01/10/15 Tony Lang MD [address] [place] [address] PCP - General 01/04/15 01/05/15 Tony Lang MD [address] [place] [address] PCP - General 12/30/14 01/03/15 [place] [address] PCP - General 12/28/14 12/29/14 documented as of this encounter
--- OUTSIDE RECORDS SUMMARY | 2024-05-29 17:36 | XMS_ITS | Encounter Summary ---
Author Organization [facility] Address [address] [place] [address]. [place], [place] [address] [place] [address] Care Team Providers Care Medication Assistant Name Role Phone Tony Lang MD Primary Care Provider Tony Lang MD Primary Care Provider Tony Lang MD Primary Care Provider Mimi Carrillo MD Primary Care Provider [phone] Tony Lang MD Primary Care Provider Jeff Sanford MD Primary Care Provider Unavailable Tony Lang MD Primary Care Provider Tony Lang MD Primary Care Provider Tony Lang MD Primary Care Provider Encounter Details Date Type Department Care Team (Late st Contact Info) Description 06/02/2015 Abstract [facility] Family Medicine [address] [address] Tony Lang MD [address] [place] [address] Social History Tobacco Use Types Packs/Day Years Used Date Smoking Tobacco: Never Assessed Comments Unknown Sex and Gender Information Value Date Recorded Sex Assigned at Not on file Legal Sex Female 2:59 PM GUT CARRIER Gender Identity Not on file Sexual Orientation Not on file documented as of this encounter Last Filed Vital Signs Vital Sign Reading Time Taken Comments Blood Pressure 107/74 06/02/2015 7:35 AM GUT CARRIER Pulse 85 06/02/2015 7:35 AM GUT CARRIER Temperature - - Respiratory Rate - - Oxygen Saturation - - Inhaled Oxygen Concentration - - Weight 87.1 kg (192 lb) 06/02/2015 7:35 AM GUT CARRIER Height 154.9 cm (5' 1 ) 06/02/2015 7:35 AM GUT CARRIER Body Mass Index 36.28 06/02/2015 7:35 AM GUT CARRIER documented in this encounter Progress Notes * [...] TABLET AT BEDTIME; Therapy: 21Sep2014 to (Last Rx:[id number]) Requested for: 41Dkv6142 Ordered 2. Naproxen 500 MG Oral Tablet; TAKE 1 TABLET BY MOUTH TWICE DAILY; Therapy: 21Sep2014 to (Evaluate:84Wzo9215) Requested for: 89Lxf9024; Last Rx:01Als2710 Ordered 3. Selenium Sulfide 2.5 % External Lotion; Apply to affected areas and lather with small amount of water. Leave on your skin for 10 minutes. Rinse it off; Therapy: 02Kvb1787 to (Last Rx:84Xjv2253) Requested for: 59Vym1075 Ordered 4. Triamcinolone Acetonide 0.1 % External Ointment; APPLY SPARINGLY TO AFFECTED AREA(S) TWICE DAILY; Therapy: 71Zvs3053 to (Last Rx:85Yfz2766) Requested for: 21Sep2014 Ordered Allergies 1. Isabel [...] Glucose Negative Bilirubin Negative Ketones Negative Specific [place] 1.030 A Blood 2+(Moderate) A pH 5.5 [...] Acute UTI; EDWARD = N; VerifiedTransmission to [facility] 44394; Last Updated By: Zhao Brown; 06/02/2015 7:45:39 AM UTI symptoms 3. *Urine dip auto In Office; Status:Resulted - Requires Verification; Done: 02Jun2015 07:29AM Performed:In Office; Due:02Jul2015; Last Updated By:Natalie Arroyo; 06/02/2015 7:30:50 AM;Ordered; For:UTI symptoms; Ordered By:Tony Lang; 4. Urine Culture; Status:In Progress - Specimen/Data Collected; Done: 02Jun2015 Perform: [facility]; Due:02Jul2015; Last Updated By:Natalie Arroyo; 06/02/2015 7:32:10 AM;Ordered; For:UTI symptoms; Ordered By:Tony Lang; Source: : Clean Catch Signatures Electronically signed by : Tony Lang M.D.; Jun 02 2015 7:57AM GUT CARRIER (Author) documented in this encounter Plan of Treatment Not on file documented as of this encounter Procedures Procedure Name Priority Date/Time Associated Diagnosis Comments HEMOGLOBIN, GLYCOSYLATED Routine 06/02/2015 7:50 AM GUT CARRIER URINE BACTERIA CULTURE Routine 06/02/2015 7:32 AM GUT CARRIER URINALYSIS AUTO DIP Routine 06/02/2015 7 :29 AM GUT CARRIER documented in this encounter Results * HEMOGLOBIN, GLYCOSYLATED (06/02/2015 7:50 AM GUT CARRIER) HGB A1C 5.2 4.2% - 6.5% [facility] TO EPIC CONVERSION 06/02/2015 7:50 AM GUT CARRIER 06/02/2015 7:50 AM GUT CARRIER Narrative [facility] TO EPIC CONVERSION - 06/02/2015 7:50 AM GUT CARRIER Result Communication: No patient communication needed at this time us Tony Lang MD LABORATORY Final Result [facility] TO EPIC CONVERSION * CULTURE URINE (06/02/2015 7:32 AM GUT CARRIER) CULTURE URINE SPECIMEN DESCRIPTION ? - URINE CLEAN CATCH SPECIAL REQUESTS ? - NO SPECIAL REQUEST CULTURE ?- NO GROWTH 2 DAYS REPORT STATUS ?- FINAL 06/04/2015 [facility] TO EPIC CONVERSION 06/02/2015 7:32 AM GUT CARRIER 06/02/2015 7:32 AM GUT CARRIER Narrative [facility] TO EPIC CONVERSION - 06/04/2015 8:31 AM GUT CARRIER Result Communication: No patient communication needed at this time us Tony Lang MD MICROBIOLOGY - GENERAL ORDERABL ES Final Result Performing Organization Address City/[facility] Co de Phone Number [facility] TO EPIC CONVERSION * (ABNORMAL) URINALYSIS AUTO DIP (06/02/2015 7:29 AM GUT CARRIER) COLOR (U) Yellow [facility] T O EPIC [...] OUP TO EPIC CONVERSION 06/02/2015 7:29 AM GUT CARRIER 06/02/2015 7:29 AM GUT CARRIER Narrative [facility] TO EPIC CONVERSION - 06/02/2015 7:29 AM GUT CARRIER Result Communication: No patient communication needed at this time us Tony Lang MD URINE ORDERABLES Final Result Performing Organization Address City/[facility] Co de Phone Number [facility] TO EPIC CONVERSION documented in this encounter Visit Diagnoses Not on filedocumented in this encounter Care Teams Medication Assistant Relationship Specialty Start Date End Date Tony Lang MD [address] [place], [place] [id number] PCP - General 08/06/16 07/23/18 Tony Lang MD [address], [place] 24[address]59 PCP - General 07/30/16 08/05/16 Tony Lang MD [address], [place] 429139 PCP - General 07/05/16 07/29/16 Mimi Carrillo MD [address], [place] [address] PCP - General 07/04/16 07/04/16 Tony Lang MD [address] [place], [place] 4[address]69 PCP - General 03/26/16 07/03/16 Jeff Sanford MD PCP - General 03/21/1603/25 Tony Lang MD [address], [place] 573589 PCP - General 03/12/16 03/20/16 Tony Lang MD [address], [place] 791349 PCP - General 08/29/15 03/11/16 Tony Lang MD [address], [place] 817739 PCP - General 06/02/15 08/28/15 documented as of this encounter
--- OUTSIDE RECORDS SUMMARY | 2024-05-29 17:36 | XMS_ITS | Encounter Summary ---
Author Organization [facility] Address [facility]6 [facility]. [place], [place] [address] [place] [address] Care Team Providers Care Education Diagnostician Name Role Phone Tony Lang MD Primary Care Provider Tony Lang MD Primary Care Provider Tony Lang MD Primary Care Provider Mimi Carrillo MD Primary Care Provider Tony Lang MD Primary Care Provider Jeff Sanford MD Primary Care Provider Unavailable Tnoy Lang MD Primary Care Provider Tony Lang [...] (Late st Contact Info) Description 12/23/2014 Abstract [facility] Medical [facility] Family Medicine [address] [place] [address] Tony Lang MD 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 Selenium Sulfide 2.5 % External Lotion; Apply to affected areas and lather with small amount of water. Leave on your skin for 10 minutes. Rinse it off; Therapy: 95Wfg2565 to (Last Rx:92Wvu3546) Requested for: 72Skz1508 Ordered 4. Triamcinolone Acetonide 0.1 % External Ointment; APPLY SPARINGLY TO AFFECTED AREA(S) TWICE DAILY; Therapy: 13Nsx2302 to (Last Rx:86Emk1326) Requested for: 65Noh9915 Ordered Allergies 1. Isabel Vitals Recorded: 23Dec2014 07:21AM Temperature 97 F Heart Rate 89 Respiration 16 Systolic 134 Diastolic 82 O2 Saturation 97 Height 5 ft 1 in Weight 197 lb BMI Calculated 37.22 BSA Calculated 1.88 LMP 43Jci5835 Physical Exam Constitutional: awake, alert, no acute [...] rhinitis; EDWARD = N; Verified Transmission to [facility] 28159; Last Updated By: BOKU; 12/23/20147:59:06 AM Piriformis syndrome 2. Naproxen 500 MG Oral Tablet; TAKE 1 TABLET EVERY 12 HOURS NEEDED Rx By: Tony Lang; Dispense: 30 Days ; #:60 Tablet; Refill: 2; For: Piriformis syndrome; EDWARD = N; Verified Transmission to [facility]; Last Updated By: BOKU; 12/23/2014 7:59:06 AM Signatures Electronically signed by : Tony Lang M.D.; Dec 23 2014 8:06AM SCREW MACHINE TENDER (Author) documented in this encounter Plan of Treatment Not on file documented as of this encounter Visit Diagnoses Not on filedocumented in this encounter Care Teams Education Diagnostician Relationship Specialty Start Date End Date Tony Lang MD [address], [place] [id number] PCP - General 08/06/16 07/23/18 Tony Lang MD [address], [place] [address] PCP - General 07/30/16 08/05/16 Tony Lang MD [address], [place] 680109 PCP - General 07/05/16 07/29/16 Mimi Carrillo MD [address] [place] [address] PCP - General 07/04/16 07/04/16 Tony Lang MD [address] [place] [address] PCP - General 03/26/16 07/03/16 Jeff Sanofrd MD PCP - General 03/21/1603/25 Tony Lang MD [address] [place] [address] PCP - General 03/12/16 03/20/16 Tony Lang MD [address], [place] 330639 PCP - General 08/29/15 03/11/16 Tony Lang MD [address], [place] 392429 PCP - General 06/02/15 08/28/15 Tony Lang MD [address], [place] 341039 PCP - General 01/13/15 06/01/15 Tony Lnag MD [address], [place] 705739 PCP - General 01/11/15 01/12/15 Tony Lang MD [address], [place] 735719 PCP - General 01/06/15 01/10/15 Tony Lang MD [address] [place] [address] PCP - General 01/04/15 01/05/15 Tony Lang MD [address] [place] [address] PCP - General 12/30/14 01/03/15 Tony Lang MD [address] [place] [address] PCP - General 12/28/14 12/29/14 documented as of this encounter
--- OUTSIDE RECORDS SUMMARY | 2024-05-29 17:36 | XMS_ITS | Encounter Summary ---
Author Organization [facility] Address [facility]. [place], [place] [address] [place] [address] Care Team Providers Care Deputy Director Name Role Phone Tony Lang MD Primary Care Provider [phone] Tony Lang MD Primary Care Provider [phone] Tony Lang MD Primary Care Provider [phone] Jack Neely MD Primary Care Provider [phone] Tony Lang MD Primary Care Provider [phone] Encounter Details Date Type Department Care Team (Latest Contact Info) Description 04/08/2016 Abstract [facility] Social History Tobacco Use Types Packs/Day Years Used Date Smoking Tobacco: Never Assessed Comments Unknown Sex and Gender Information Value Date Recorded Sex Assigned at Not on file Legal Sex Female 2:59 PM HOUSECLEANER Gender Identity Not on file Sexual Orientation Not on file documented as of this encounter Progress Notes * Jack Neely MD - 04/08/2016 2:33 AM CDT Message Discussed results and plan with pt at her 03/26/16 appt Mrs Read, 1) Your most recent thyroid lab (TSH) resulted within normal limits. If you have any questions, please contact the office at [phone] Have a blessed day, ~Dr Neely Verified Results TSH W Reflex Free T4 26Mar2016 09:20AM Jack Neely Test Name Result Flag Reference TSH w Reflex Free T4 1.24 mIU/mL 0.27-4.20 FREE T4 NOT INDICATED US PELVIS NON OB COMPLETE 21Mar2016 01:25PM Jack Neely Test Name Result Flag Reference US PELVIS NON OB COMPLETE (Report) FRANCISCO READ ADMIT/SERVICE DATE: 03/21/16 ACCT: [id number] DISCHARGE DATE: : 1980 SEX: F ORD SITE: [facility] PT TYPE: REG CLI ORDERING MD: JACK NEELY MD STUDY DATE REPORT # ORDER # [id number] ORDER ID 03/21/16 [id number] PROC CODE: [id number] PROCEDURE DESCRIPTION: US PELVIS [...] on filedocumented in this encounter Care Teams Deputy Director Relationship Specialty Start Date End Date Tony Lang MD [address] [place] [address] PCP - General 08/06/16 07/23/18 Tony Lang MD [address] [place] [address] PCP - General 07/30/16 08/05/16 [place] [address] PCP - General 07/05/16 07/29/16 Jack Neely MD [address] [place], [place] [address]69 PCP - General 07/04/16 07/04/16 [place] [address] PCP - General 03/26/16 07/03/16 documented as of this encounter
--- OUTSIDE RECORDS SUMMARY | 2024-05-29 17:36 | XMS_ITS | Encounter Summary ---
Author Organization [facility] Address [facility]. 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 Released from microfilm clerk on post check Jan. Csection (3rd one). [...] Flag Reference Appearance Clear Color Yellow Specific [place] 1.025 1.02 - 1.03 Leukocyte Esterase Negative [...] better in 7 days. Status: Complete Done: 12Iok9278 Ordered; For: Abdominal pain; Ordered By: Tony Lang 3. Call if: The symptoms seem worse. Status: Complete Done: 10Jyt2835 Ordered; For: Abdominal pain; Ordered By: Tony Lang 4. Call if: Your bowel movements become loose or watery. Status: Complete Done: 36Tmc6899 Ordered; For: Abdominal pain; Ordered By: Tony Lang 5. Call 911 if: You are vomiting any blood or material that looks black, or like coffee grounds. Status: Complete Done: 31Uvu0360 Ordered; For: Abdominal pain; Ordered By: Tony Lang 6. Seek Immediate Medical Attention if: The symptoms are suddenly worse. Status: Complete Done: 64Fsp2990 Ordered; For: Abdominal pain; Ordered By: Tony Lang 7. Seek Immediate Medical Attention if: You become dizzy or lightheaded, especially when you stand up after sitting for a while. Status: Complete Done: 97Hqc9685 Ordered; For: Abdominal pain; Ordered By: Tony Lang 8. Seek Immediate Medical Attention if: You see any blood in the stool. Status: Complete Done: 96Wzf4173 Ordered; For: Abdominal pain; Ordered By: Tony Lang 9. Seek Immediate Medical Attention if: You start vomiting. Status: Complete Done: 47Nse6616 Ordered; For: Abdominal pain; Ordered By: Tony Lang 10. Seek Immediate Medical Attention if: Your abdomen is getting large and round and you are not eating more than usual. Status: Complete Done: 40Wtm8136 Ordered; For: Abdominal pain; Ordered By: Tony Lang 11. Seek Immediate Medical Attention if: Your abdominal pain is worse. Status: Complete Done: 33Jix3699 Ordered; For: Abdominal pain; Ordered By: Tony Lang 12. Seek Immediate Medical Attention if: Your temperature is greater than 103F. Status: Complete Done: 42Nsk4643 Ordered; For: Abdominal pain; Ordered By: Tony [...] Tony Lang M.D.; Feb 18 2014 12:35PM DIRECTOR DATA ARCHITECTURE (Author) documented in this encounter Plan of [...] on filedocumented in this encounter Care Teams Diagnostic Tech Relationship Specialty Start Date End Date Tony Lang MD [place], [place] [address]459 PCP - General 08/06/16 07/23/18 [place] [address] PCP - General 07/30/16 08/05/16 [place] [address] PCP - General 07/05/16 07/29/16 [place] [address] PCP - General 07/04/16 07/04/16 Tony Lang MD [address] [place] [address] PCP - General 03/26/16 07/03/16 Jeff Sanford MD PCP - General 03/21/1603/25 Tony Lang MD [address] [place] [address] PCP - General 03/12/16 03/20/16 Tony Lang MD [address] [place] [address] PCP - General 08/29/15 03/11/16 Tony Lang MD [address] [place] [address] PCP - General 06/02/15 08/28/15 Tony Lang MD [address] [place] [address] PCP - General 01/13/15 06/01/15 Tony Lang MD [address] [place] [address] PCP - General 01/11/15 01/12/15 Tony Lang MD [address] [place] [address] PCP - General 01/06/15 01/10/15 Tony Lang MD [address] [place] [address] PCP - General 01/04/15 01/05/15 Tony Lang MD [address] [place] [address] PCP - General 12/30/14 01/03/15 Tony Lang MD [address] [place] [address] PCP - General 12/28/14 12/29/14 documented as of this encounter
--- OUTSIDE RECORDS SUMMARY | 2024-05-29 17:36 | XMS_ITS | Encounter Summary ---
Author Organization [facility] Address [facility]6 [facility]. [place], [place] [address] [place] [address] Care Team Providers Care Landcare Facilitator Name Role Phone Tony Lang MD Primary Care Provider [phone] Tony Lang MD Primary Care Provider [phone] Tony aLng MD Primary Care Provider [phone] Mimi Carrillo MD Primary Care Provider [phone] Tony Lang MD Primary Care Provider [phone] Encounter Details Date Type Department Care Team (Late st Contact Info) Description 03/26/2016 Abstract [facility] [place] [address] Jeff Hester MD Social History Tobacco Use Types Packs/Day Years Used Date Smoking Tobacco: Never Assessed Comments Unknown Sex and Gender Information Value Date Recorded Sex Assigned at Not on file Legal Sex Female 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 Comment:FREE T4 NOT INDICATE D SERUM OR PLASMA SPECIMEN / Unknown 03/26/2016 9:20 AM CDT 03/26/2016 8:05 PM CDT us Generic Conversion Md [facility] Final R esult [facility] [address] [place] [address], documented in this encounter Visit Diagnoses Diagnosis Hypothyroidism Unspecified hypothyroidism documented in this encounter Care Teams Landcare Facilitator Relationship Specialty Start Date End Date Tony Lang MD [address] [place] [address] PCP - General 08/06/16 07/23/18 Tony Lang MD [address] [place] [address] PCP - General 07/30/16 08/05/16 Tony Lang MD [address] [place] [address] PCP - General 07/05/16 07/29/16 Miim Carrillo MD [address] [place] [address] PCP - General 07/04/16 07/04/16 Tony Lang MD [address] [place], [place] [address] PCP - General 03/26/16 07/03/16 documented as of this encounter
--- OUTSIDE RECORDS SUMMARY | 2024-05-29 17:36 | XMS_ITS | Encounter Summary ---
Author Organization [facility] Address [address] [place] [address]. 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 Gender Identity Not on file Sexual Orientation Not on file documented as of this encounter Plan of Treatment Not on file documented as of this encounter Visit Diagnoses Not on filedocumented in this encounter Care Teams Dynamometer Tuner Relationship Specialty Start Date End Date Tony Lang MD [address] [place] [address] PCP - General 08/06/16 07/23/18 Tony Lang MD [address] [place] [address] PCP - General 07/30/16 08/05/16 Tony Lang MD [address] [place] [address] PCP - General 07/05/16 07/29/16 Mimi Carrillo MD [address] [place] [address] PCP - General 07/04/16 07/04/16 Tony Lang MD [address] [place] [address] PCP - General 03/26/16 07/03/16 Jeff Sanford MD PCP - General 03/21/1603/25 Tony Lang MD [address] [place] [address] PCP - General 03/12/16 03/20/16 Tony Lang MD [address] [place] [address] PCP - General 08/29/15 03/11/16 Tony Lang MD [address] [place] [address] PCP - General 06/02/15 08/28/15 [place] [address] PCP - General 01/13/15 06/01/15 [place] [address] PCP - General 01/11/15 01/12/15 [place] [address] PCP - General 01/06/15 01/10/15 Tony [place] [address] PCP - General 01/04/15 01/05/15 Tony [place] [address] PCP - General 12/30/14 01/03/15 documented as of this encounter
--- OUTSIDE RECORDS SUMMARY | 2024-05-29 17:36 | XMS_ITS | Encounter Summary ---
Author Organization [facility] Address [address] [place] [address]. [place] [address] [place] [address] Care Team Providers Care Die Hardener Name Role Phone Tony Lang MD Primary Care Provider [phone] Tony Lang MD Primary Care Provider [phone] Tony Lang MD Primary Care Provider [phone] Encounter Details Date Type Department Care Team (Late st Contact Info) Description 07/05/[address] [facility] [place] [address] Mimi Carrillo MD [address] [place] [id number] Social History Tobacco Use Types Packs/Day Years Used Date Smoking Tobacco: Never Assessed Comments Unknown Sex and Gender Information Value Date Recorded Sex Assigned at Not on file Legal Sex Female 2:59 PM ETL DATABASE DEVELOPER Gender Identity Not on file Sexual Orientation Not on file documented as of this encounter Plan of Treatment Not on file documented as of this encounter Procedures Procedure Name Priority Date/Time Associated Diagnosis Comments ZINC PLASMA Routine 07/05/2016 4:22 PM ETL DATABASE DEVELOPER VITAMIN A Routine 07/05/2016 4:22 PM ETL DATABASE DEVELOPER documented in this encounter Results * ZINC PLASMA (07/05/2016 4:22 PM ETL DATABASE DEVELOPER) ZINC S/P/B 74 60 - 130 mcg/dL 07/07/2016 5:05 PM ETL DATABASE DEVELOPER [facility]O Comment: Test Performed by [facility], [address] [place], [place] Eric Piper M.D., Ph.D., Director of Laboratories , CLIA [id number] WHOLE BLOOD SPECIMEN / Unknown 07/05/2016 4:22 PM ETL DATABASE DEVELOPER 07/05/2016 9:24 PM ETL DATABASE DEVELOPER us Generic Conversion Md [facility] Final R esult Performing Organization Address City/[facility]/ZIP Co de Phone Number Electronic Payment and Services (EPS)[facility] [address] [place], [place] , [place] [phone] * (ABNORMAL) VITAMIN A (07/05/2016 4:22 PM ETL DATABASE DEVELOPER) VITAMIN A (RETINOL) S/P/B 32(L) 38 - 98 mcg/dL 07/10/2016 5:07 PM ETL DATABASE DEVELOPER [facility]SO NANO Comment: Vitamin supplementation within 24 hours prior to blood draw may affect the accuracy of the results. This test was developed and its analytical performance characteristics have been determined by [facility] [place], [place]. It has not been cleared or approved by the U.S. Food and Drug Administration. This assay has been validated pursuant to the CLIA regulations and is used for clinical purposes. Test Performed by [facility], [address] [place], [place] Eric Piper M.D., Ph.D., Director of Laboratories , CLIA [id number] SERUM SPECIMEN / Unknown 07/05/2016 4:22 PM ETL DATABASE DEVELOPER 07/05/2016 9:24 PM ETL DATABASE DEVELOPER us Generic Conversion Md [facility] Final R esult Performing Organization Address City/[facility]/ZIP Co de Phone Number Electronic Payment [employer] Services (EPS)[facility] [address] [place], [place] , [place] [phone] documented in this encounter Visit Diagnoses Diagnosis Nonscarring hair loss Other alopecia documented in this encounter Care Teams Die Hardener Relationship Specialty Start Date End Date Tony Lang MD [address] [place] [address] PCP - General 08/06/16 07/23/18 [place] [address] PCP - General 07/30/16 08/05/16 Tony Lang MD [address] [place] [address] PCP - General 07/05/16 07/29/16 documented as of this encounter
--- OUTSIDE RECORDS SUMMARY | 2024-05-29 17:36 | XMS_ITS | Encounter Summary ---
Author Organization [facility] Address [facility]6 [facility]. [place], [place] [address] [place] [address] Care Team Providers Care Corporate Security Manager Name Role Phone Tony Lang MD Primary Care Provider [phone] Tony Lang MD Primary Care Provider [phone] Tony Lang MD Primary Care Provider [phone] Jack Neely MD Primary Care Provider Tony Lang MD Primary Care Provider [phone] Jeff Sanford MD Primary Care Provider Unavailable Encounter Details Date Type Department Care Team (Latest Contact Info) Description 03/21/2016 Abstract [facility] Jack Neely MD [facility] [place] [address] Social History Tobacco Use Types Packs/Day Years Used Date Smoking Tobacco: Never Assessed Comments Unknown Sex and Gender Information Value Date Recorded Sex Assigned at Not on file Legal Sex Female 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 ADMIT/SERVICE DATE: 03/21/16 ?? ACCT: [id number] ?DISCHARGE DATE: ?? : 1980 ??SEX: F ?ORD SITE: [facility] ?? PT TYPE: REG CLI ? ORDERING MD: JACK NEELY MD ? STUDY DATE ? REPORT # ?ORDER # ? EXT ORDER ID ?? 03/21/16 ? [id number] ? [id number] ?[id number] ? PROC CODE: ? PLVSNOBCMP ? PROCEDURE [...] - 04/03/2018 FRANCISCO YAP ADMIT/SERVICE DATE:03/21/16 ACCT: [id number] DISCHARGE DATE: : 1980 SEX: F ORD SITE: [facility] PT TYPE: REG CLI ORDERING MD:JACK NEELY MD STUDY DATE REPORT # ORDER # EXT ORDER ID 03/21/16 [id number] [facility]: [facility] PROCED[facility] DESCRIPTION: US PELVIS NON OB [...] on filedocumented in this encounter Care Teams Corporate Security Manager Relationship Specialty Start Date End Date Tony Lang MD [address] [place] [address] PCP - General 08/06/16 07/23/18 [place] [address] PCP - General 07/30/16 08/05/16 Tony Lang MD [address] [place] [address] [place] [address] PCP - General 07/05/16 07/29/16 Jack Neely MD [address] [place] [address] [place] [address] PCP - General 07/04/16 07/04/16 Tony Lang MD [address] [place] [address] [place] [address] PCP - General 03/26/16 07/03/16 Jeff Sanford MD PCP - General 03/21/1603/25 documented as of this encounter
--- OUTSIDE RECORDS SUMMARY | 2024-05-29 17:36 | XMS_ITS | Encounter Summary ---
Author Organization [facility] Address [facility]6 [facility]. [place], [place] [address] [place] [address] Care Team Providers Care Salvage Inspector Name Role Phone Tony Lang MD Primary Care Provider [phone] Tony Lang MD Primary Care Provider [phone] Tony Lang MD Primary Care Provider Mimi Carrillo MD Primary Care Provider [phone] Tony Lang MD Primary Care Provider Jeff Sanford MD Primary Care Provider Unavailable Encounter Details Date Type Department Care Team (Late st Contact Info) Description 03/21/2016 Abstract [facility] [address] [place] [address] Md Generic MD Betito Social History Tobacco Use Types Packs/Day Years Used Date Smoking Tobacco: Never Assessed Comments Unknown Sex and Gender Information Value Date Recorded Sex Assigned at Not on file Legal Sex Female 2:59 PM 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 Gender Identity Not on file Sexual Orientation Not on file documented as of this encounter Plan of Treatment Not on file documented as of this encounter Visit Diagnoses Diagnosis Other ovarian cyst, right side documented in this encounter Care Teams Salvage Inspector Relationship Specialty Start Date End Date Tony Lang MD [address] [place] [address] PCP - General 08/06/16 07/23/18 Tony Lang MD [address] [place] [address] PCP - General 07/30/16 08/05/16 Tony Lang MD [address] [place] [address] [place] [address] PCP - General 07/05/16 07/29/16 Mimi Carrillo MD [address] [place] [address] [place] [address] PCP - General 07/04/16 07/04/16 Tony Lang MD [address] [place] [address] [place] [address] PCP - General 03/26/16 07/03/16 Jeff Sanford MD PCP - General 03/21/1603/25 documented as of this encounter
--- OUTSIDE RECORDS SUMMARY | 2024-05-29 17:36 | XMS_ITS | Encounter Summary ---
Author Organization [facility] Address [facility] 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 Vitamin D (Ergocalciferol) 88727 UNIT Oral Capsule; TAKE 1 CAPSULE WEEKLY [...] on filedocumented in this encounter Care Teams Material Clerk Relationship Specialty Start Date End Date Tony Lang MD [address] [place] [address] PCP - General 08/06/16 07/23/18 Tony Lang MD [address] [place], [place] [address] PCP - General 07/30/16 08/05/16 Tony Lang MD [address] [place], [place] [address] PCP - General 07/05/16 07/29/16 Mimi Carrillo MD [address] [place] [address] PCP - General 07/04/16 07/04/16 Tony Lang MD [address] [place] [address] PCP - General 03/26/16 07/03/16 Jeff Sanford MD PCP - General 03/21/1603/25 Tony Lang MD [address] [place] [address] PCP - General 03/12/16 03/20/16 Tony Lang MD [address] [place] [address] PCP - General 08/29/15 03/11/16 documented as of this encounter
--- OUTSIDE RECORDS SUMMARY | 2024-05-29 17:36 | XMS_ITS | Encounter Summary ---
Author Organization [facility] Address [address] [place] [address]. [place], [place] [address] [place] [address] Care Team Providers Care Hospital Liaison Name Role Phone Tony aLng MD Primary Care Provider [phone] Tony Lang MD Primary Care Provider [phone] Tony Lang MD Primary Care Provider [phone] Encounter Details Date Type Department Care Team (Late st Contact Info) Description 07/05/2016 Abstract [facility] Family Medicine [facility] [address] [place] [address] Mimi Carrillo MD [address] [place] [address] Social History Tobacco Use Types Packs/Day Years Used Date Smoking Tobacco: Never Assessed Comments Unknown Sex and Gender Information Value Date Recorded Sex Assigned at Not on file Legal Sex Female 2:59 PM PERSONAL LINES INSURANCE ADVISOR Gender Identity Not on file Sexual Orientation Not on file documented as of this encounter Last Filed Vital Signs Vital Sign Reading Time Taken Comments Blood Pressure 111/75 07/05/2016 8:14 AM PERSONAL LINES INSURANCE ADVISOR Pulse 84 07/05/2016 8:14 AM PERSONAL LINES INSURANCE ADVISOR Temperature - - Respiratory Rate - - Oxygen Saturation - - Inhaled Oxygen Concentration - - Weight 87.5 kg (193 lb) 07/05/2016 8:14 AM PERSONAL LINES INSURANCE ADVISOR Height 154.9 cm (5' 1 ) 07/05/2016 8:14 AM PERSONAL LINES INSURANCE ADVISOR Body Mass Index 36.47 07/05/2016 8:14 AM PERSONAL LINES INSURANCE ADVISOR documented in this encounter Progress Notes * [...] up on her when she was at [facility] last week. Pt has tried Tylenol 1000mg [...] Tablet; TAKE 1 TABLET DAILY DIRECTED; Therapy: 37Jrj1482 to (Evaluate:26Jun2016); Last Rx:[id number] Ordered Rx By: Tony Lang; Dispense: 90 Days ; #:90 Tablet; Refill: 1; For: Restless legs syndrome; EDWARD= N; Record 2. Gabapentin 300 MG Oral Capsule; TAKE 1 CAPSULE 3 TIMES DAILY; Therapy: 26Mar2016 to (Evaluate:76Ipf2833) Requested for: 26Mar2016; Last Rx:[id number] Ordered Rx By: Mimi Carrillo; Dispense: 30 Days ; #:90 Capsule; Refill: 3; For: Neuropathy; EDWARD = N; Verified Transmission to [facility]; Last Updated By: [email or web address]; 03/26/2016 9:12:13 AM 3. Gabapentin 300 MG Oral Capsule; take one tab po daily for 1-2 weeks and then may increase to 2 tabs at night; Therapy: 75Tsc4830 to (Last Rx:[id number]) Requested for: 75Auw1938 Ordered Rx By: Tony Lang; Dispense: 0 Days ; #:90 Capsule; Refill: 2; For: Restless legs syndrome; EDWARD= N; Verified Transmission to [facility]; Last Updated By: [email or web address]; 12/29/2015 1:33:11 PM 4. Montelukast Sodium 10 MG Oral Tablet; TAKE 1 TABLET AT BEDTIME; Therapy: 21Sep2014 to (Last Rx:[id number]) Requested for: 26Mar2016 Ordered Rx By: Mimi Carrillo; Dispense: 0 Days ; #:30 Tablet; Refill: 3; For: Allergic rhinitis; EDWARD = N; Verified Transmission to [facility]; Last Updated By: [email or web address]; 03/26/20168:59:13 AM 5. Naproxen 500 MG Oral Tablet; TAKE 1 TABLET BY MOUTH TWICE DAILY; Therapy: 64Mmg2517 to (Evaluate:16Yks0303) Requested for: 59Otp2173; Last Rx:[id number] Ordered Rx By: Tony Lang; Dispense: 30 Days ; #:60 TAB; Refill: 0; For: PMH: Choking sensation, Seborrheic dermatitis; EDWARD = N; Verified Transmission to [facility]; Last Updated By: [email or web address]; 12/13/2014 9:22:02 AM Allergies 1. Lodine Recorded [...] Progress - Specimen/Data Collected; Done: 05Jul2016 Perform[facility]; Due:54Rar5490; Last Updated By:Natalie Arroyo; 07/05/2016 9:14:28 AM;Ordered; For:Hair loss; Ordered By:Mimi Carrillo; 2. Zinc; Status:In Progress - Specimen/Data Collected; Done: 05Jul2016 Perform:[facility]; Due:63Aqe9471; Last Updated By:Natalie Arroyo; 07/05/2016 9:14:28 AM;Ordered; [...] up on her when she was at [facility] last week. -Pt has tried Tylenol 1000mg [...] Mimi Carrillo M.D.; Jul 05 2016 9:22AM PERSONAL LINES INSURANCE ADVISOR (Author) documented in this encounter Plan of Treatment Not on file documented as of this encounter Procedures Procedure Name Priority Date/Time Associated Diagnosis Comments ZINC PLASMA Routine 07/05/2016 4:22 PM PERSONAL LINES INSURANCE ADVISOR VITAMIN A Routine 07/05/2016 4:22 PM PERSONAL LINES INSURANCE ADVISOR documented in this encounter Results * (ABNORMAL) VITAMIN A (07/05/2016 4:22 PM PERSONAL LINES INSURANCE ADVISOR) VITAMIN A (RETINOL) S/P/B 32(L) [facility] TO EPIC CONVERSION Comment: Result Comment: Reference range: 38 to 98 Unit: mcg/dL Vitamin supplementation within 24 hours prior to blood draw may affect the accuracy of the results. This test was developed and its analytical performance characteristics have been determined by [facility] [place], [place]. It has not been cleared or approved by the U.S. Food and Drug Administration. This assay has been validated pursuant to the CLIA regulations and is used for clinical purposes. Test Performed by [email or web address], [address] [place] [address] Eric Piper M.D., Ph.D., Director of Laboratories , CLIA [id number] 07/05/2016 4:22 PM PERSONAL LINES INSURANCE ADVISOR 07/05/2016 4:22 PM PERSONAL LINES INSURANCE ADVISOR Narrative [facility] TO EPIC CONVERSION - 07/10/2016 4:07 PM PERSONAL LINES INSURANCE ADVISOR Result Communication: Mail Results to Patient iMmi Carrillo MD LABORATORY Final Result [facility] TO [facility] CONVERSION * ZINC PLASMA (07/05/2016 4:22 PM PERSONAL LINES INSURANCE ADVISOR) ZINC S/P/B 74 [facility] TO EPIC CONVERSION Comment: Result Comment: Reference range: 60 to 130 Unit: mcg/dL Test Performed by [facility], [address] [place] [address] Eric Piper M.D., Ph.D., Director of Laboratories , CLIA [id number] 07/05/2016 4:22 PM PERSONAL LINES INSURANCE ADVISOR 07/05/2016 4:22 PM PERSONAL LINES INSURANCE ADVISOR Narrative [facility] TO EPIC CONVERSION - 07/07/2016 4:05 PM PERSONAL LINES INSURANCE ADVISOR Result Communication: Mail Results to Patient Mimi Carrillo MD LABORATORY Final Result [facility] TO EPIC CONVERSION documented in this encounter Visit Diagnoses Not on filedocumented in this encounter Care Teams Hospital Liaison Relationship Specialty Start Date End Date Tony Lang MD [address] [place] [address] PCP - General 08/06/16 07/23/18 [place] [address] PCP - General 07/30/16 08/05/16 Tony Lang MD [address] [address]319 PCP - General 07/05/16 07/29/16 documented as of this encounter
--- OUTSIDE RECORDS SUMMARY | 2024-05-29 17:36 | XMS_ITS | Encounter Summary ---
Author Organization [facility] Address [facility]6 [facility]. [place], [place] [address] [place] [address] Care Team Providers Care Senior Manager Creative Services Name Role Phone Tony Lang MD Primary [...] Team (Latest Contact Info) Description 03/17/2015 Abstract [facility] Social History Tobacco Use Types Packs/Day Years Used Date Smoking Tobacco: Never Assessed Comments Unknown Sex and Gender Information Value Date Recorded Sex Assigned at Not on file Legal Sex Female 2:59 PM CHAIRMAN AND CHIEF EXECUTIVE OFFICER Gender Identity Not on file Sexual Orientation Not on file documented as of this encounter Plan of Treatment Not on file documented as of this encounter Visit Diagnoses Not on filedocumented in this encounter Care Teams Senior Manager Creative Services Relationship Specialty Start Date End Date Tony [place] [address] PCP - General 08/06/16 07/23/18 Tony Lang MD [address] [place], [place] [address]99 PCP - General 07/30/16 08/05/16 Tony Lang MD [address] [place] [address] PCP - General 07/05/16 07/29/16 Mimi Carrillo MD [address] [place], [place] [address]349 PCP - General 07/04/16 07/04/16 Tony Lang MD [address], [place] [address] PCP - General 03/26/16 07/03/16 Jeff Sanford MD PCP - General 03/21/1603/25 Tony Lang MD [address] [place], [place] 6[address]999 PCP - General 03/12/16 03/20/16 Tony Lang MD [address] [place] [address] PCP - General 08/29/15 03/11/16 Tony Lang MD [address] [place], [place] 382159 PCP - General 06/02/15 08/28/15 Tony Lang MD [address] [place], [place] 97[address] PCP - General 01/13/15 06/01/15 documented as of this encounter
--- OUTSIDE RECORDS SUMMARY | 2024-05-29 17:36 | XMS_ITS | Encounter Summary ---
Author Organization [facility] Address [address] [place] [address]. [place], [place] [address] [place] [address] Care Team Providers Care Forensic Toxicologist Name Role Phone Tony Lang MD Primary Care Provider Tony Lang MD Primary Care Provider Tony Lang MD Primary Care Provider Mimi Carrillo MD Primary Care Provider [phone] Tony Lang MD Primary Care Provider Jeff Sanford MD Primary Care Provider Unavailable Tony Lang MD Primary Care Provider Tony Lang MD Primary Care Provider Encounter Details Date Type Department Care Team (Late st Contact Info) Description 12/29/2015 Abstract 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 Naproxen 500 MG Oral Tablet; TAKE 1 TABLET BY MOUTH TWICE DAILY; Therapy: 86Zdh1246 to (Evaluate:23Ljt9432) Requested for: 97Znj2097; Last Rx:[id number] Ordered 3. Selenium Sulfide 2.5 % External Lotion; Apply to affected areas and lather with small amount of water. Leave on your skin for 10 minutes. Rinse it off; Therapy: 66Bup9968 to (Last Rx:66Hji4880) Requested for: 38Zix4669 Ordered 4. Triamcinolone Acetonide 0.1 % External Ointment; APPLY SPARINGLY TO AFFECTED AREA(S) TWICE DAILY; Therapy: 87Hbm9748 to (Last Rx:[id number]) Requested for: 01Wco5603 Ordered 5. Vitamin D (Ergocalciferol) 73986 UNIT Oral Capsule; TAKE 1 CAPSULE WEEKLY; Therapy: 78Hov0850 to (Last Rx:14Tfa6339) Requested for: 76Ipw9778 Ordered Allergies 1. Isabel Vitals Recorded: 32Azm0000 01:14PM Temperature 97 F Heart Rate 89 [...] legs syndrome; EDWARD= N; Verified Transmission to [employer]; Last Updated By: Zhao Brown; 12/29/2015 1:33:11 PM Vitamin d deficiency 3. Vitamin D (Ergocalciferol) 80049 UNIT Oral Capsule Rx By: Tony Lang; Dispense: 0 Days ; #:6 Capsule; Refill: 1; For: Vitamin d deficiency; EDWARD = N; Sent To: [employer] [facility] 39062 Signatures Electronically signed by : Tony Lang M.D.; Dec 29 2015 2:02PM BITUMINOUS PAVING MACHINE OPERATOR (Author) documented in this encounter Plan of Treatment Not on file documented as of this encounter Visit Diagnoses Not on filedocumented in this encounter Care Teams Forensic Toxicologist Relationship Specialty Start Date End Date Tony Lang MD [address] [place], [place] 041789 PCP - General 08/06/16 07/23/18 Tony Lang MD [address] [place], [place] [address] PCP - General 07/30/16 08/05/16 Tony Lang MD [address] [place], [place] [address]479 PCP - General 07/05/16 07/29/16 Mimi Carrillo MD [address] [place], [place] 12[address]09 PCP - General 07/04/16 07/04/16 Tony Lang MD [address] [place], [place] [address] PCP - General 03/26/16 07/03/16 Jeff Sanford MD PCP - General 03/21/1603/25 Tony Lang MD [address] [place], [place] 8[address]889 PCP - General 03/12/16 03/20/16 Tony Lang MD [address] [place], [place] 068409 PCP - General 08/29/15 03/11/16 documented as of this encounter
--- OUTSIDE RECORDS SUMMARY | 2024-05-29 17:36 | XMS_ITS | Encounter Summary ---
Author Organization [facility] Address [facility]6 [facility]. [place], [place] [address] [place] [address] Care Team Providers Care Shingle Grader Name Role Phone Tony Lang MD Primary Care Provider [phone] Tony Lang MD Primary Care Provider [phone] Tony Lang MD Primary Care Provider [phone] Mimi Carrillo MD Primary Care Provider [phone] Tony Lang MD Primary Care Provider [phone] Jeff Sanford MD Primary Care Provider Unavailable Encounter Details Date Type Department Care Team (Latest Contact Info) Description 03/21/2016 Abstract [facility] Social History Tobacco Use Types Packs/Day Years Used Date Smoking Tobacco: Never Assessed Comments Unknown Sex and Gender Information Value Date Recorded Sex Assigned at Not on file 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 Gender Identity Not on file Sexual Orientation Not on file documented as of this encounter Plan of Treatment Not on file documented as of this encounter Visit Diagnoses Not on filedocumented in this encounter Care Teams Shingle Grader Relationship Specialty Start Date End Date Tony Lang MD [address] [place], [place] [address] PCP - General 08/06/16 07/23/18 Tony Lang MD [address] [place] [address] PCP - General 07/30/16 08/05/16 Tony Lang MD [address] [facility] [place] [address] PCP - General 07/05/16 07/29/16 Mimi Carrillo MD [address] [place], [place] [address] PCP - General 07/04/16 07/04/16 Tony Lang MD [address] [place], [place] [address] PCP - General 03/26/16 07/03/16 Jeff Sanford MD PCP - General 03/21/1603/25 documented as of this encounter
--- OUTSIDE RECORDS SUMMARY | 2024-05-29 17:36 | XMS_ITS | Encounter Summary ---
Author Organization [facility] Address [facility]6 [facility] 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 Lodine Recorded By: Adilene Ortega; 02/18/2014 10:18:29 AM Vitals Vital Signs [Data Includes: Current Encounter] Recorded: 91Nxv4916 09:14AM Recorded: 08Amj5646 10:09AM Temperature 98 F Heart Rate 90 [...] Allergic rhinitis; EDWARD = N; Sent To: [facility] 578[address] Bronchitis, Choking sensation, Seborrheic dermatitis 2. Mucinex D 60-600 MG Oral Tablet Extended Release 12 Hour; TAKE 1 TABLET EVERY 12 HOURS Rx By: Tony Lang; Dispense: 10 Days ; #:20 Tablet Extended Release 12 Hour; Refill: 0; For: Bronchitis, Choking sensation, Seborrheic dermatitis; EDWARD = N; Sent To: [facility] 73604 3. Naproxen 500 MG Oral Tablet (Naprosyn); Take 1 twice daily Rx By: Tony Lang; Dispense: 30 Days ; #:60 Tablet; Refill: 0; For: Bronchitis, Choking sensation, Seborrheic dermatitis; EDWARD = N; Sent To: [facility] Seborrheic dermatitis 4. Selenium Sulfide 2.5 % External Lotion; Apply to affected areas and lather with small amount of water. Leave on your skin for 10 minutes. Rinse it off Rx By: Tony Lang; Dispense: 0 Days ; #:120 ML; Refill: 2; For: Seborrheic dermatitis; EDWARD = N;Sent To: [facility] 81465 5. Triamcinolone Acetonide 0.1 % External Ointment; APPLY SPARINGLY TO AFFECTED AREA(S) TWICE DAILY Rx By: Tony Lang; Dispense: 0 Days ; #:1 X 30 GM Tube; Refill: 1; For: Seborrheic dermatitis; EDWARD = N; Sent To: [facility] 29408 Signatures Electronically signed by : Tony Lang M.D.; Sep 21 2014 10:03AM ONSITE HEALTH COACH (Author) documented in this encounter Plan of Treatment Not on file documented as of this encounter Visit Diagnoses Not on filedocumented in this encounter Care Teams Deck Steward Relationship Specialty Start Date End Date Tony Lang MD [address] [place], [place] [address] PCP - General 08/06/16 07/23/18 Tony Lang MD [address] [place], [place] 79[address] PCP - General 07/30/16 08/05/16 Tony Lang MD [address] [place], [place] 196399 PCP - General 07/05/16 07/29/16 Mimi Carrillo MD [address] [place], [place] [address] PCP - General 07/04/16 07/04/16 Tony Lang MD [address] [place], [place] 3[address]29 PCP - General 03/26/16 07/03/16 Jeff Sanford MD PCP - General 03/21/1603/25 Tony Lang MD [address] [place], [place] [address]329 PCP - General 03/12/16 03/20/16 Tony Lang MD [address] [place], [place] 427159 PCP - General 08/29/15 03/11/16 Tony Lang MD [address] [place], [place] 218089 PCP - General 06/02/15 08/28/15 Tony Lang MD [address] [place], [place] [phone] PCP - General 01/13/15 06/01/15 Tony Lang MD [address] [place], [place] 4[address]29 PCP - General 01/11/15 01/12/15 Tony Lang MD [address] [place], [place] 7[address]239 PCP - General 01/06/15 01/10/15 Tony Lang MD [address] [place], [place] 445549 PCP - General 01/04/15 01/05/15 Tony Lang MD [address] [place], [place] [id number] PCP - General 12/30/14 01/03/15 Tony Lang MD [address] [place], [place] 235319 PCP - General 12/28/14 12/29/14 documented as of this encounter
--- OUTSIDE RECORDS SUMMARY | 2024-05-29 17:36 | XMS_ITS | Encounter Summary ---
Author Organization [facility] - [facility] Address [facility]. [place], [place] [address] [place] [address] Care Team Providers Care Front Services Agent Name Role Phone Tony Lang MD Primary Care Provider [phone] Tony Lang MD Primary Care Provider [phone] Tony Lang MD Primary Care Provider [phone] Mimi Carrillo MD Primary Care Provider [phone] Tony Lang MD Primary Care Provider [phone] Jeff Sanford MD Primary Care Provider Unavailable Tony Lang MD Primary Care Provider [phone] Encounter Details Date Type Department Care Team (Latest Contact Info) Description 03/15/2016 Abstract [facility] Medical Group Social History Tobacco Use Types Packs/Day Years Used Date Smoking Tobacco: Never Assessed Comments Unknown Sex and Gender Information Value Date Recorded Sex Assigned at Not on file 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 This is good news! I do recommend that you keep your LAMINATOR appointment for further workup of your irregular bleeding. If you have any questions/concerns, please contact the office at [phone]. Have a blessed day, ~Dr Carrillo Verified [...] on filedocumented in this encounter Care Teams Front Services Agent Relationship Specialty Start Date End Date Tony Lang MD [address] [place] [id number] PCP - General 08/06/16 07/23/18 Tony Lang MD [address] [place] [id number] PCP - General 07/30/16 08/05/16 Tony Lang MD [address] [id number] PCP - General 07/05/16 07/29/16 Mimi Carrillo MD [address] [place] [id number] PCP - General 07/04/16 07/04/16 Tony Lang MD [address] [place] [id number] PCP - General 03/26/16 07/03/16 Jeff Sanford MD PCP - General 03/21/1603/25 Tony Lang MD [address] [place] [id number] PCP - General 03/12/16 03/20/16 documented as of this encounter
--- OUTSIDE RECORDS SUMMARY | 2024-05-29 17:36 | XMS_ITS | Encounter Summary ---
Author Organization [facility] Address [address] [place] [address]. 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 Gender Identity Not on file Sexual Orientation Not on file documented as of this encounter Plan of Treatment Not on file documented as of this encounter Visit Diagnoses Not on filedocumented in this encounter Care Teams Head Butler Relationship Specialty Start Date End Date Tony Lang MD [address] [place] [address] PCP - General 08/06/16 07/23/18 Tony Lang MD [address] [place] [address] PCP - General 07/30/16 08/05/16 Tony Lang MD [address] [place] [address] PCP - General 07/05/16 07/29/16 Miim Carrillo MD [address] [place] [address] PCP - General 07/04/16 07/04/16 Tony Lang MD [address] [place] [address] PCP - General 03/26/16 07/03/16 Jeff Sanford MD PCP - General 03/21/1603/25 Tony Lang MD [address], [place] 170679 PCP - General 03/12/16 03/20/16 Tony Lang MD [address] [place] [address] PCP - General 08/29/15 03/11/16 Tony Lang MD [address], [place] [id number] PCP - General 06/02/15 08/28/15 Tony Lang MD [address] [place] [address] PCP - General 01/13/15 06/01/15 Tony Lang MD [address] [place] [address] PCP - General 01/11/15 01/12/15 Tony Lang MD [address] [place] [address] PCP - General 01/06/15 01/10/15 Tony Lang MD [address] [place] [address] PCP - General 01/04/15 01/05/15 Tony Lang MD [address] [place] [address] PCP - General 12/30/14 01/03/15 Tony Lang MD [address] [place] [address] PCP - General 12/28/14 12/29/14 documented as of this encounter
--- OUTSIDE RECORDS SUMMARY | 2024-05-29 17:36 | XMS_ITS | Encounter Summary ---
Author Organization [facility] Address [address] [place] [address]. [place], [place] [address] [place] [address] Care Team Providers Care Ditch Digger Name Role Phone Tony Lang MD Primary Care Provider [phone] Mimi Carrillo MD Primary Care Provider [phone] Encounter Details Date Type Department Care Team (Late st Contact Info) Description 07/04/2016 Orders Only [facility] [address] [place] [address] Jeff Hester MD Social History Tobacco Use Types Packs/Day Years Used Date Smoking Tobacco: Never Assessed Comments Unknown Sex and Gender Information Value Date Recorded Sex Assigned at Not on file Legal Sex Female 2:59 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 FRANCISCO YAP Ordering MD: PITA FALCON MD ?? Acct: [id number] ?? Admit/Service Date: 07/04/16 Discharge Date: ?? : 1980 Pt Type: REG CLI ?? Sex: F Ord Site: [facility] ?[facility] [place] ?[address], [place], [place] ?Test Date: ?2016-07-04 ?? Pat Name: ? FRANCISCO BUSSA ?Department: CARD ?? 40 ? Room: ? DPST ?? Gender: ? Female ? Senior Mechanical Design Engineer: ?? RRS ?? : ?1980 ? Requested By: PITA FALCON ?? Order Number: [id number] ?Reading MD: ?? Cholo Dora ?Measurements ?? Intervals ?[place] ? Rate: ? 59 ? P: ?64 ?? [place]: ? 146 ?QRS: ?67 ?? QRSD: ? 81 ? T: ?52 ?? QT: ? 400 ? QTc: ?399 ?Interpretive Statements ?? SINUS RHYTHM WITH SINUS ARRHYTHMIA ?? No previous ECG available for comparison ?? E ENGINEER ? Procedure Note Cholo John MD - 07/04/2016 FRANCISCO YAP Ordering MD: PITA FALCON MD Acct: [id number] Admit/Service Date: 07/04/16 Discharge Date: : 1980 Pt Type: REG CLI Sex: F Ord Site: [address] Test Date: 2016-07-04 Pat Name: FRANCISCO YAP Department: CARD 40 Room: [facility] Gender: Female Senior Mechanical Design Engineer: RRS : 1980 Requested By: PITA MCCORMICK Order Number: [id number] Reading MD: Cholo John Measurements Intervals [place] Rate: 59 P: 64 [place]: 146 QRS: 67 QRSD: 81 T: 52 QT: 400 QTc: 399 Interpretive Statements SINUS RHYTHM WITH SINUS ARRHYTHMIA No previous ECG available for comparison E ENGINEER us Generic Conversion [facility] Final Result [facility] documented in this encounter Visit Diagnoses Not on filedocumented in this encounter Care Teams Ditch Digger Relationship Specialty Start Date End Date Tony Lang MD [address] [place] [address] PCP - General 07/05/16 07/29/16 Mimi Carrillo MD [address] [place] [address] PCP - General 07/04/16 07/04/16 documented as of this encounter
--- OUTSIDE RECORDS SUMMARY | 2024-05-29 17:36 | XMS_ITS | Encounter Summary ---
Author Organization [facility] Address [facility]. [place], [place] [address] [place] [address] Care Team Providers Care Stapling Machine Operator Name Role Phone Tony Lang MD Primary Care Provider [phone] Tony Lang MD Primary Care Provider [phone] Tony Lang MD Primary Care Provider [phone] Mimi Carrillo MD Primary Care Provider [phone] Tony Lang MD Primary Care Provider [phone] Jeff Hester MD Primary Care Provider Unavailable Tony Lang MD Primary Care Provider [phone] Encounter Details Date Type Department Care Team (Late st Contact Info) Description 03/12/[address] 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 Gender Identity Not on file Sexual [...] - 10.8 X10'3/uL 03/13/2016 10:30 AM CDT [facility] RBC 4.43 4.20 - 5.40 X10'6/uL 03/13/2016 10:30 AM CDT [facility] HGB 13.8 12.0 - 16.0 g/dL 03/13/2016 10:30 AM CDT [facility] HCT 41.0 38.0 - 48.0 % 03/13/2016 10:30 AM CDT [facility] MCV 92.6 81.0 - 99.0 fL 03/13/2016 10:30 AM T [facility] MCH 31.2(H) 27.0 - 31.0 pg 03/13/2016 10:30 AM T [facility] MCHC 33.7 32.0 - 36.0 g/dL 03/13/2016 10:30 AM CDT [facility] RDW 13.2 11.5 - 14.5 % 03/13/2016 10:30 AM T [facility] PLT 238 130 - 400 X10'3/uL 03/13/2016 10:30 AM [facility] MPV 11.7 9.3 - 12.2 fL 03/13/2016 10:30 AM T [facility] DIFFERENTIAL TYPE AUTOMATED 03/13/2016 10:30 AM T [facility] NEUTROPHILS % 63.1 43.0 - 65.0 % 03/13/2016 10:30 AM CDT [facility] LYMPHOCYTES % 28.2 20.0 - 46.0 % 03/13/2016 10:30 AM [facility] MONOCYTES % 2.8(L) 5.0 - 12.0 % 03/13/2016 10:30 AM CDT [facility] EOSINOPHILS 5.3(H) 1.0 - 3.0 % 03/13/2016 10:30 AM CDT [facility] BASOPHILS 0.5 0.0 - 1.0 % 03/13/2016 10:30 AM CDT [facility] IMMATURE GRANS % 0.1 0.0 - 1.0 % 03/13/2016 10:30 AM CDT [facility] 03/12/2016 9:05 AM CDT 03/13/2016 9:55 AM CDT us Generic Conversion Md [facility] Final R esult [facility] [address] [id number], documented in this encounter Visit Diagnoses Diagnosis Other specified abnormal uterine and vaginal bleeding documented in this encounter Care Teams Stapling Machine Operator Relationship Specialty Start Date End Date Tony Lang MD [address] [place], [place] [id number] PCP - General 08/06/16 07/23/18 [place] [address] PCP - General 07/30/16 08/05/16 [place] [address] PCP - General 07/05/16 07/29/16 Mimi Carrillo MD [place] 106649 PCP - General 07/04/16 07/04/16 Tony Lang MD [address] [place] [address] PCP - General 03/26/16 07/03/16 Jeff Hester MD PCP - General 03/21/1603/25 Tony Lang MD [address] [place] [address] PCP - General 03/12/16 03/20/16 documented as of this encounter
--- OUTSIDE RECORDS SUMMARY | 2024-05-29 17:36 | XMS_ITS | Encounter Summary ---
Author Organization [facility] Address [facility]. 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 Gender Identity Not on file Sexual Orientation [...] syndrome; EDWARD = N; Verified Transmission to [employer] [id number]; Last Updated By: Zhao Brown; 04/09/2014 7:31:13 AM Signatures Electronically signed by : Tony Lang M.D.; Apr 09 2014 9:56AM MATH INTERVENTIONIST (Author) documented in this encounter Plan of Treatment Not on file documented as of this encounter Visit Diagnoses Not on filedocumented in this encounter Care Teams It Security Engineer Relationship Specialty Start Date End Date Tony Lang [place] [address] PCP - General 08/06/16 07/23/18 Tony Lang MD [address], [place] 365729 PCP - General 07/30/16 08/05/16 Tony Lang MD [address], [place] 483499 PCP - General 07/05/16 07/29/16 Mimi Carrillo MD [address], [place] 404[address]19 PCP - General 07/04/16 07/04/16 Tony Lang MD [address] [place] [address] PCP - General 03/26/16 07/03/16 Jeff Sanford MD PCP - General 03/21/1603/25 Tony Lang MD [address], [place] 697939 PCP - General 03/12/16 03/20/16 Tony Lang MD [address] [place] [address] PCP - General 08/29/15 03/11/16 Tony Lang MD [address] [place] [address] PCP - General 06/02/15 08/28/15 Tony Lang MD [address] [place] [address] PCP - General 01/13/15 06/01/15 Tony Lang MD [address] [place] [address] PCP - General 01/11/15 01/12/15 Tony Lang MD [address] [place] [address] PCP - General 01/06/15 01/10/15 Tony Lang MD [address] [place] [address] PCP - General 01/04/15 01/05/15 Tony Lang MD [address] [place] [address] PCP - General 12/30/14 01/03/15 Tony Lang MD [address] [place] [address] PCP - General 12/28/14 12/29/14 documented as of this encounter
--- OUTSIDE RECORDS SUMMARY | 2024-05-29 17:36 | XMS_ITS | Encounter Summary ---
Author Organization [facility] Address [facility] [place] [address] [place] [address] Care Team Providers Care Back Shoe Operator Name Role Phone Tony Lang MD Primary Care Provider [phone] Tony Lang MD Primary Care Provider [phone] Tony Lang MD Primary Care Provider [phone] Mimi Carrillo MD Primary Care Provider [phone] Encounter Details Date Type Department Care Team (Late st Contact Info) Description 07/04/2016 Abstract [facility] [place] [address] Natalia Retana, DO Social History Tobacco Use Types Packs/Day Years Used Date Smoking Tobacco: Never Assessed Comments Unknown Sex and Gender Information Value Date Recorded Sex Assigned at Not on file Legal Sex Female 2:59 PM LABELING STRATEGIST Gender Identity Not on file Sexual Orientation Not on file documented as of this encounter Plan of Treatment Not on file documented as of this encounter Procedures Procedure Name Priority Date/Time Associated Diagnosis Comments URINALYSIS WI REFLEX TO CULTURE Routine 07/04/2016 10:15 AM LABELING STRATEGIST TYPE & SCREEN Routine 07/04/2016 10:15 AM LABELING STRATEGIST COMPREHENSIVE METABOLIC PANEL Routine 07/04/2016 10:15 AM LABELING STRATEGIST CBC W/DIFF AUTOMATED Routine 07/04/2016 10:15 AM LABELING STRATEGIST documented in this encounter Results * TYPE & SCREEN (07/04/2016 10:15 AM LABELING STRATEGIST) ABO/RH O NEGATIVE 07/04/2016 3:07 PM [facility] ANTIBODY SCREEN NEGATIVE 7 3:07 PM [facility] SAMPLE EXPIRATION 07/07/2016 07/04/2016 3:07 PM [facility] 07/04/2016 10:1 5 AM LABELING STRATEGIST 07/04/2016 11:59 AM LABELING STRATEGIST us Generic Conversion Md [facility] TEST ORDERAB LES Final Result [facility] [address] [id number], [place] [phone] * (ABNORMAL) URINALYSIS WI REFLEX TO CULTURE (07/04/2016 10:15 AM LABELING STRATEGIST) SOURCE (FLUID) URINE CLEAN CATCH 07/04/2016 11:16 AM [facility] COLOR (U) YELLOW 07/04/2016 12:14 PM [facility] TRANSPARENCY CLEAR 07/04/2016 12:14 PM [facility] SPECIFIC GRAVITY (U) 1.023 1.001 - 1.030 07/04/2016 12:14 PM [facility] U PH 6.0 5.0 - 9.0 07/04/2016 12:14 PM [facility] LEUKOCYTES (U) NEGATIVE NEGATIVE 07/04/2016 12:14 PM [facility] NITRITES NEGATIVE NEGATIVE 07/04/2016 12:14 PM [facility] PROTEIN (U) NEGATIVE <30 MG/DL 07/04/2016 12:14 PM [facility] URINE GLUCOSE NEGATIVE NEGATIVE MG/DL 07/04/2016 12:14 PM [facility] KETONES MG/DL (U) NEGATIVE NEGATIVE MG/DL 07/04/2016 12:14 PM [facility] UROBILINOGEN NEGATIVE NEGATIVE MG/DL 07/04/2016 12:14 PM [facility] BILIRUBIN (U) NEGATIVE NEGATIVE MG/DL 07/04/2016 12:14 PM [facility] BLOOD (U) SMALL(A) NEGATIVE 07/04/2016 12:14 PM [facility] CULTURE & SENSITIVITY INDICATED? CULTURE IS NOT INDICATED 07/04/2016 12:14 PM [facility] SQUAMOUS EPITHELIALS MODERATE /LPF 07/04/2016 12:14 PM [facility] MUCUS RARE /LPF 07/04/2016 12:14 PM [facility] WBC/HPF 1 <6 /HPF 07/04/2016 12:14 PM [facility] RBC/HPF 1 <6 /HPF 07/04/2016 12:14 PM [facility] 07/04/2016 10:1 5 AM LABELING STRATEGIST 07/04/2016 11:59 AM LABELING STRATEGIST us Generic Conversion Md [facility] URINE ORDERABLES Final Result [facility] [address] [place] [address], * (ABNORMAL) COMPREHENSIVE METABOLIC PANEL (07/04/2016 10:15 AM LABELING STRATEGIST) GLUCOSE 91 70 - 99 mg/dL 07/04/2016 2:29 PM [facility] BUN 11 8 - 23 mg/dL 07/04/2016 2:29 PM [facility] CREATININE S/P/B 0.76 0.60 - 1.10 mg/dL 07/04/2016 2:29 PM [facility] SODIUM S/P/B 140 136 - 145 mmol/L 07/04/2016 2:29 PM [facility] POTASSIUM S/P/B 4.3 3.5 - 5.1 mmol/L 07/04/2016 2:29 PM [facility] CHLORIDE S/P/B 105 98 - 107 mmol/L 07/04/2016 2:29 PM [facility] CO2 24 22 - 29 mmol/L 07/04/2016 2:29 PM [facility] BILIRUBIN TOTAL S/P/B 0.2 0.2 - 1.2 mg/dL 07/04/2016 2:29 PM [facility] CALCIUM S/P/B 8.4(L) 8.6 - 10.2 mg/dL 07/04/2016 2:29 PM [facility] ALKALINE PHOSPHATASE S/P/B 68 35 - 104 U/L 07/04/2016 2:29 PM [facility] AST 11 0 - 32 U/L 07/04/2016 2:29 PM [facility] TOTAL PROTEIN S/P/B 6.6 6.4 - 8.3 g/dL 07/04/2016 2:29 PM [facility] ALBUMIN S/P/B 3.7 3.5 - 5.2 g/dL 07/04/2016 2:29 PM [facility] ALT 10 0 - 33 U/L 07/04/2016 2:29 PM [facility] GLOBULIN 2.9 2.3 - 3.6 g/dL 07/04/2016 2:29 PM [facility] A/G RATIO 1.3 1.0 - 2.0 07/04/2016 2:29 PM [facility] ANION GAP 15 8 - 20 07/04/2016 2:29 PM [facility] EGFR NON-AFR. AMER. >60 >60 mL/min/1.7 3m'2 07/04/2016 2:29 PM [facility] EGFR AFR. AMER. >60 >60 mL/min/1.7 3m'2 07/04/2016 2:29 PM [facility] Comment: NOTE: eGFR is not calculated for patients <18 years of age. This is an estimated GFR (CKD EPI) and should not be used for calculating drug doses. 07/04/2016 10:1 5 AM LABELING STRATEGIST 07/04/2016 12:01 PM LABELING STRATEGIST us Generic Conversion Md [facility] Final R esult [facility] [address] [place] [address], * (ABNORMAL) CBC W/DIFF AUTOMATED (07/04/2016 10:15 AM LABELING STRATEGIST) WBC 9.1 4.8 - 10.8 x10'3/uL 07/04/2016 12:16 PM [facility] RBC 4.43 4.20 - 5.40 x10'6/uL 07/04/2016 12:16 PM [facility] HGB 13.7 12.0 - 16.0 G/DL 07/04/2016 12:16 PM [facility] HCT 38.9 38.0 - 48.0 % 07/04/2016 12:16 PM [facility] MCV 87.8 81.0 - 99.0 FL 07/04/2016 12:16 PM [facility] MCH 30.9 27.0 - 31.0 PG 07/04/2016 12:16 PM [facility] MCHC 35.2 32.0 - 36.0 G/DL 07/04/2016 12:16 PM LABELING STRATEGIST [facility] RDW 12.6 11.5 - 14.5 % 07/04/2016 12:16 PM [facility] PLT 219 130 - 400 x10'3/uL 07/04/2016 12:16 PM LABELING STRATEGIST [facility] MPV 11.3 9.3 - 12.2 FL 07/04/2016 12:16 PM [facility] IMMATURE GRANS % 0.2 0.0 - 1.0 % 07/04/2016 12:16 PM [facility] NEUTROPHILS % 60.1 43.0 - 65.0 % 07/04/2016 12:16 PM [facility] LYMPHOCYTES % 30.1 20.0 - 46.0 % 07/04/2016 12:16 PM [facility] MONOCYTES % 4.6(L) 5.0 - 12.0 % 07/04/2016 12:16 PM [facility] EOSINOPHILS 4.6(H) 1.0 - 3.0 % 07/04/2016 12:16 PM [facility] BASOPHILS 0.4 0.0 - 1.0 % 07/04/2016 12:16 PM [facility] WHOLE BLOOD SPECIMEN / Unknown 07/04/2016 10:15 AM LABELING STRATEGIST 07/04/2016 12:01 PM LABELING STRATEGIST us Generic Conversion Md [facility] Final R esult [facility] [address] [place] [address], documented in this encounter Visit Diagnoses Diagnosis Encounter for other preprocedural examination documented in this encounter Care Teams Back Shoe Operator Relationship Specialty Start Date End Date Tony Lang MD [address] [place] [address] PCP - General 08/06/16 07/23/18 [place] [address] PCP - General 07/30/16 08/05/16 [place] [address] PCP - General 07/05/16 07/29/16 Mimi Carrillo MD [address] [place] [address] PCP - General 07/04/16 07/04/16 documented as of this encounter
--- OUTSIDE RECORDS SUMMARY | 2024-05-29 17:36 | XMS_ITS | Encounter Summary ---
Author Organization [facility] Address [address] [place] [address]. [place], [place] [address] [place] [address] Care Team Providers Care Double Ending Machine Operator Name Role Phone Tony Lang MD Primary Care Provider [phone] Toyn Lang MD Primary Care Provider [phone] Encounter Details Date Type Department Care Team (Late st Contact Info) Description 07/30/2016 Abstract [facility] [place] [address] Natalia Retana, Social History Tobacco Use Types Packs/Day Years Used Date Smoking Tobacco: Never Assessed Comments Unknown Sex and Gender Information Value Date Recorded Sex Assigned at Not on file Legal 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
--- OUTSIDE RECORDS SUMMARY | 2024-05-29 17:36 | XMS_ITS | Encounter Summary ---
Author Organization [facility] Address [facility] 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 Naproxen 500 MG Oral Tablet; TAKE 1 TABLET BY MOUTH TWICE DAILY; Therapy: 26Xzz3369 to (Evaluate:98Kcr9430) Requested for: 39Zri0551; Last Rx:[id number] Ordered 3. Naproxen 500 MG Oral Tablet; TAKE 1 TABLET EVERY 12 HOURS NEEDED; Therapy: 89Crp6125 to (Evaluate:62Ptb3342) Requested for: 68Wkx6171; Last Rx:[id number] Ordered 4. Selenium Sulfide 2.5 % External Lotion; Apply to affected areas and lather with small amount of water. Leave on your skin for 10 minutes. Rinse it off; Therapy: 81Fft3118 to (Last Rx:[id number]) Requested for: 56Sph4889 Ordered 5. Triamcinolone Acetonide 0.1 % External Ointment; APPLY SPARINGLY TO AFFECTED AREA(S) TWICE DAILY; Therapy: 26Cfp4189 to (Last Rx:[id number]) Requested for: [id number] Ordered Allergies 1. Isabel Vitals Recorded: 68Kxs6612 08:53AM Temperature 98.9 F Heart Rate 91 Respiration 16 Systolic 120 Diastolic 80 O2 Saturation 98 Height 5 ft 1 in Weight 197 lb BMI Calculated 37.22 BSA Calculated 1.88 LMP [id number] Physical Exam Constitutional General appearance: No acute distress, well appearing and well nourished. Chest Breasts: Normal and no dimpling or skin changes noted. Right breast: normal appearance, no erythema, no atrophy, no swelling, no Peau D'Cardinal, no dimpling and no dilated superficial veins. Left breast: hypertrophy, but normal appearance, no erythema, no atrophy present, no swelling, no Peau D'Cardinal, no dimpling and no dilated superficial veins. [...] Tony Lang M.D.; Feb 10 2015 9:26AM TRADE MARKER (Author) documented in this encounter Plan of Treatment Not on file documented as of this encounter Visit Diagnoses Not on filedocumented in this encounter Care Teams Sound Recordist Relationship Specialty Start Date End Date Tony Lang MD [address] [place] [address] PCP - General 08/06/16 07/23/18 Tony Lang MD [address] [place] [address] PCP - General 07/30/16 08/05/16 Tony Lang MD [address] [place] [address] PCP - General 07/05/16 07/29/16 Mimi Carr[place] [address] PCP - General 07/04/16 07/04/16 [place] [address] PCP - General 03/26/16 07/03/16 Jeff Sanford MD PCP - General 03/21/1603/25 [place] [address] PCP - General 03/12/16 03/20/16 Tony Lang MD [address] [place] [address] PCP - General 08/29/15 03/11/16 Tony Lang MD [address] [place] [address] PCP - General 06/02/15 08/28/15 Tony Lang MD [address] [place] [address] PCP - General 01/13/15 06/01/15 documented as of this encounter
--- OUTSIDE RECORDS SUMMARY | 2024-05-29 17:40 | XMS_ITS | Clinical Summary ---
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
--- OUTSIDE RECORDS SUMMARY | 2024-05-29 17:40 | XMS_ITS | Encounter Summary ---
Author Organization [facility] Address [address] [place] [address] Care Team Providers Care Telecommunications Engineer Name Role Phone Unavailable Primary Care Provider Unavailabl e Encounter Details Date Type Department Care Team (Late st Contact Info) Description 06/23/2021 Lab Requisition [facility] [address] [place] [address] Liam Liu MD [address] [place] [address] [place] [address] Social History Tobacco Use Types Packs/Day Years Used Date Smoking Tobacco: Never Assessed Comments Unknown Sex and Gender Information Value Date Recorded Sex Assigned at Not on file Legal Sex Female 7:23 AM 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
--- OUTSIDE RECORDS SUMMARY | 2024-05-29 17:40 | XMS_ITS | Encounter Summary ---
Author Organization [facility] Address [address] [place] [address] Care Team Providers Care Counselor Camp Name Role Phone Unavailable Primary Care Provider Unavailabl e Encounter Details Date Type Department Care Team (Late st Contact Info) Description 06/23/2021 8:00 AM VIDEO GAME CREATOR Rapid Evaluation [facility] Community Testing [address] [address] Social History Tobacco Use Types Packs/Day Years Used Date Smoking Tobacco: Never Assessed Comments Unknown Sex and Gender Information Value Date Recorded Sex Assigned at Not on file Legal Sex Female 7:23 AM VIDEO GAME CREATOR Gender Identity Not on file Sexual Orientation Not on file documented as of this encounter Plan of Treatment Not on file documented as of this encounter Visit Diagnoses Not on filedocumented in this encounter
== END 2024-05-24 20:08 | disposition home or self-care (01) ==
PROVIDERS: Emergency Provider Registered Nurse; PCP Physician Assistant
DX: J06.9 Acute upper respiratory infection, unspecified (principal); Z20.822 Contact with and (suspected) exposure to COVID-19; J45.909 Unspecified asthma, uncomplicated; K58.9 Irritable bowel syndrome, unspecified; K21.9 Gastro-esophageal reflux disease without esophagitis; Z86.2 Personal history of diseases of the blood and blood-forming organs and certain disorders involving the immune mechanism; F17.210 Nicotine dependence, cigarettes, uncomplicated
CPT/HCPCS: 71046; 87637; 94640; 96372; 99283; J2919

== ENCOUNTER 2024-06-23 22:31 | Emergency (ER) | payer OTHER, MEDICAID, SELFPAY ==
--- NOTE | ~2024-06-23 | XR_ITS ---
CHEST RADIOGRAPH, PA AND LATERAL CLINICAL HISTORY: sob . COMPARISON: 06/18/2024 TECHNIQUE: PA and lateral views of the chest. FINDINGS The cardiomediastinal silhouette is unremarkable. The lungs are clear. Visualized osseous structures and soft tissues are unremarkable. IMPRESSION: No focal infiltrate or effusion. Reviewed, dictated and finalized at location A. [facility]
[2024-06-23 22:33] VITALS: BP 151/90; PULSE 83; RESP 15; TEMP 36.3; O2SAT 98
--- NOTE | 2024-06-23 22:42 | ECG_ITS ---
Test Date: 2024-06-23 22:53:05 Measurements Intervals Gateway Rate: 73 P: 68 UT: 136 QRS: 56 QRSD: 99 T: 55 QT: 398 QTc: 440 Interpretive Statements SINUS RHYTHM INCOMPLETE RIGHT BUNDLE BRANCH BLOCK [90+ ms QRS DURATION, TERMINAL R IN V1/V2, 40+ ms S IN I/aVL/V4/V5/V6] Compared to ECG 11/06/2023 22:58:11 Incomplete right bundle-branch block now present Electronically Signed On 06-24-2024 14:23:46 CLINICAL NURSING INTERN by Josh Armstrong M.D.
[2024-06-23 22:53] VITALS: O2SAT 98
[2024-06-23 22:59] LABS: Basophils Absolute Auto 0.1 K/mm3 (0.0-0.1); Basophils Percent Auto 0.7 % (0.2-1.2); Eosinophils Absolute Auto 0.6 K/mm3 (0-0.3); Eosinophils Percent Auto 5.8 % (0-4.4); Hemoglobin 15.1 g/dL (12.0-15.0); Immature Granulocyte Absolute 0.03 K/mm3 (0.00-0.031); Immature Granulocyte Percent A 0.3 % (0-0.5); Lymphocytes Absolute Auto 3.38 K/mm3 (0.9-3.2); Lymphocytes Percent Auto 30.8 % (18.3-44.2); Mean Corpuscular HGB Conc 35.1 g/dl (32-36); Mean Corpuscular Hemoglobin 31.8 pg (26-34); Mean Corpuscular Volume 90.5 fl (80-100); Mean Platelet Volume 10.1 fl (7.4-10.4); Monocytes Absolute Auto 0.5 K/mm3 (0.1-0.6); Monocytes Percent Auto 4.8 % (2.6-8.5); Neutrophils Absolute Auto 6.3 K/mm3 (1.3-6.7); Neutrophils Percent Auto 57.6 % (45.5-73.1); Platelet Count Result 250 k/mm3 (150-375); Red Blood Count 4.75 M/mm3 (4.2-5.4); Red Cell Distribution Width 13.6 % (11.5-14.5)
[2024-06-23 23:11] LABS: Alanine Aminotransferase 27 U/L (6-35); Albumin Level 3.9 g/dL (3.5-5.1); Alkaline Phosphatase 78 U/L (38-126); Anion Gap 6 mmol/L (4-12); Aspartate Amino Transferase 23 U/L (14-36); Bilirubin,Total 0.5 mg/dL (0.2-1.3); Blood Urea Nitrogen 6 mg/dL (7-17); Calcium 8.6 mg/dL (8.4-10.2); Carbon Dioxide 27 mmol/L (22-30); Chloride 104 mmol/L (98-107); Estimated CRCL calculation 83 ml/min; Estimated Glomerular Filt Rate > 60; Glucose 96 mg/dL (65-110); Potassium 3.1 mmol/L (3.4-5.0); Sodium 137 mmol/L (137-145)
[2024-06-24] VITALS (7 sets, daily range): BP systolic 134–169; BP diastolic 58–107; PULSE 76–109; RESP 17–21; O2SAT 95–100
[2024-06-24] MEDS: dexAMETHasone SOD PHOS INJ 10 MG/ML 1 ML VIAL IV PUSH (05:12)
[2024-06-24] MEDS: MAGNESIUM SULF 2 GM/WATER 50ML 2 GM/50 ML BAG IVPB (05:12)
[2024-06-24] MEDS: guaiFENesin/DEXTROMETHORPHAN 10 ML UDC PO (05:14)
[2024-06-24] MEDS: SODIUM CHLORIDE 0.9% IV 1,000 ML 999 ML IV CONT (05:14)
[2024-06-24] MEDS: IPRATROPIUM 0.5 MG/ALBUTEROL SULFATE 2.5 MG AMPUL.NEB 3 ML 12 ML INHALATION (05:15)
--- NOTE | 2024-06-24 06:32 | ED.GENADULT ---
HPI - General Adult General Chief complaint: Shortness of Breath/Dyspnea Stated complaint: SOB Time Seen by Provider: 06/24/24 02:28 History of Present Illness HPI narrative: This is a 44-year-old woman with history COPD presenting for difficulty breathing. Patient was seen in our ED on June 18 for shortness of breath. At that time she was treated for pneumonia with Augmentin azithromycin and given scheduled breathing treatments. She re-presented today because she coughed throughout the night started sleep felt her asthma getting worse. She is denying fevers, chills, chest pain,nausea, vomiting, or diarrhea. Related Data Home Medications ?Medication ?Instructions ?Recorded ?Confirmed ?Last Taken ?Type beclomethasone dipropionate 40 1 inh inhalation Q12H 04/15/24 05/11/24 Unknown History mcg/actuation HFA breath activated aerosol (Qvar RediHaler) tizanidine 2 mg capsule 2 mg PO TID PRN 04/15/24 05/11/24 Unknown History Allergies Allergy/AdvReac Type Severity Reaction Status Date / Time etodolac AdvReac Intermediate severe Verified 06/23/24 22:33 dehydration [facility] Past Medical History Medical History IBS (irritable bowel syndrome) Migraine GERD (gastroesophageal reflux disease) Asthma Anemia Anxiety Allergies Surgical History Surgical History History of endometrial ablation H/O tubal ligation History of delivery x 3 Family History Family History Mother Heart disease Hypertension Grandparent Heart disease Hypertension Social History Social History Smoking status: Current every day smoker Tobacco type: cigarettes Alcohol intake: current Alcohol use details: rarely Substance use: never Substance use type: does not use Current Housing: Decline to Answer Concerned About Future Housing: Decline to Answer Difficulty Paying Gas/Electric Bills: Decline to Answer Difficulty Paying for Meds: Decline to Answer Currently Unemployed: Decline to Answer Education: Decline to Answer Difficulty w/ Childcare or Family Care: Decline to Answer Living arrangements: with family Occupation/Education: occupation Gender identity (if verbalized by the patient): Female Sexual Orientation (if Verbalized by the Patient): Straight or Heterosexual Exam Narrative: APPEARANCE: No apparent distress. Head: atraumatic. EYES: EOMI, NOSE: Atraumatic NECK: Trachea midline RESPIRATORY: Tachypneic, wheezing in all mejia, 4-5 word dyspnea CARDIOVASCULAR: RRR, ABDOMINAL: Non-distended MUSCULOSKELETAl: No obvious deformities NEURO: Alert. Moving 4/4 extremities SKIN:: Warm, dry. Normal color PSYCHIATRIC: Normal affect Course Vital Signs Vital signs: Vital Signs Temperature 97.4 F L 06/23/24 22:33 Pulse Rate 83 06/23/24 22:33 Respiratory Rate 15 06/23/24 22:33 Blood Pressure 151/90 H 06/23/24 22:33 Pulse Oximetry 98 06/23/24 22:33 Oxygen Delivery Room Air 06/23/24 22:33 Temperature 97.4 F L 06/23/24 22:33 Pulse Rate 99 06/24/24 06:03 Respiratory Rate 20 06/24/24 06:03 Blood Pressure 134/58 L 06/24/24 06:01 Pulse Oximetry 100 06/24/24 06:01 Oxygen Delivery Room Air 06/24/24 00:19 Medical Decision Making MDM Narrative Medical decision making narrative: -Course: 44-year-old female with COPD presenting with difficulty breathing. She is very wheezy on exam. Given hour long breathing treatment steroids and magnesium with significant improvement. She still has some wheezing but she is now resting comfortably able speak in full sentences. Discussed admission versus discharge the patient is comfortable going home. She will be provided a 5 day course of steroids. She is also requesting a work note and a prescription for cough syrup as cough is causing her significant distress. These were provided the patient was discharged. Given return precautions. -DDX includes but is not limited to: Pneumonia, COPD, viral syndrome -Co-morbidities complicating care: COPD -Independent interpretation of studies: Labs and imaging reviewed -Shared decision making / Disposition: Discharge -RX prednisone 50 mg x 5 days, Robitussin DM Vital Signs Vital Signs: Vital Signs Temperature 97.4 F L 06/23/24 22:33 Pulse Rate 83 06/23/24 22:33 Respiratory Rate 15 06/23/24 22:33 Blood Pressure 151/90 H 06/23/24 22:33 Pulse Oximetry 98 06/23/24 22:33 Oxygen Delivery Room Air 06/23/24 22:33 Temperature 97.4 F L 06/23/24 22:33 Pulse Rate 99 06/24/24 06:03 Respiratory Rate 20 06/24/24 06:03 Blood Pressure 134/58 L 06/24/24 06:01 Pulse Oximetry 100 06/24/24 06:01 Oxygen Delivery Room Air 06/24/24 00:19 Lab Data 06/23/24 22:47 06/23/24 22:47 Labs: Lab Results 06/23/24 Range/Units 22:47 WBC 11.0 H (4.5-10.0) K/mm3 RBC 4.75 (4.2-5.4) M/mm3 Hgb 15.1 H (12.0-15.0) g/dL Hct 43.0 (37.0-47.0) % MCV 90.5 (80-100) fl MCH 31.8 (26-34) pg MCHC 35.1 (32-36) g/dl RDW 13.6 (11.5-14.5) % Plt Count 250 (150-375) k/mm3 MPV 10.1 (7.4-10.4) fl Immature Gran % (Auto) 0.3 (0-0.5) % Neut % (Auto) 57.6 (45.5-73.1) % Lymph % (Auto) 30.8 (18.3-44.2) % Victoria % (Auto) 4.8 (2.6-8.5) % Eos % (Auto) 5.8 H (0-4.4) % Baso % (Auto) 0.7 (0.2-1.2) % Lymph # (Auto) 3.38 H (0.9-3.2) K/mm3 Victoria # (Auto) 0.5 (0.1-0.6) K/mm3 Eos # (Auto) 0.6 H (0-0.3) K/mm3 Baso # (Auto) 0.1 (0.0-0.1) K/mm3 Abs Immat Gran (auto) 0.03 (0.00-0.031) K/mm3 Absolute Neuts (auto) 6.3 (1.3-6.7) K/mm3 Absolute Nucleated RBC 0.000 (0.0-0.012) K/mm3 Nucleated RBC % 0.0 (0.0-0.2) % Sodium 137 (137-145) mmol/L Potassium 3.1 L (3.4-5.0) mmol/L Chloride 104 (98-107) mmol/L Carbon Dioxide 27 (22-30) mmol/L Anion Gap 6 (4-12) mmol/L BUN 6 L (7-17) mg/dL Creatinine 0.78 (0.7-1.0) mg/dL Estim Creat Clear Calc 83 ml/min Estimated GFR > 60 (59 - ) Glucose 96 (65-110) mg/dL Calcium 8.6 (8.4-10.2) mg/dL Total Bilirubin 0.5 (0.2-1.3) mg/dL AST 23 (14-36) U/L ALT 27 (6-35) U/L Alkaline Phosphatase 78 (38-126) U/L Total Protein 7.0 (6.3-8.2) g/dL Albumin 3.9 (3.5-5.1) g/dL Discharge Plan Discharge Clinical Impression: Acute bronchitis with asthma Patient Disposition: Home, Self-Care Condition: Stable Instructions: Antibiotic Form, Asthma (ED) Additional Instructions: Please take your nebulized inhalers every 6 hours. Please take the steroids as instructed. To complete her course of antibiotics. Please return to the ED if you develop fevers, worsening shortness of breath or chest pain. Patient Language: Nepali Prescriptions: New prednisone 50 mg tablet 50 mg PO DAILY Qty: 5 0RF Robitussin Cough-Chest Howard DM 10-200 mg capsule 1 tab-cap PO ONCE PRN (Reason: cough) Qty: 14 0RF No Action albuterol sulfate [ProAir HFA] 90 mcg/actuation HFA aerosol inhaler 1 inh inhalation QID PRN (Reason: shortness of breath or wheezing) Qty: 6.7 0RF Qvar RediHaler 40 mcg/actuation HFA aerosol breath activated 1 inh inhalation Q12H tizanidine 2 mg capsule 2 mg PO TID PRN methylprednisolone [Medrol (Suman)] 4 mg tablets,dose pack See Rx Instructions .ROUTE .COMPLEX Qty: 21 0RF Rx Instructions: for 6 days azithromycin 250 mg tablet See Rx Instructions .ROUTE .COMPLEX Qty: 6 0RF Rx Instructions: For 250 mg dose pack: take 500 mg today (day 1), then 250 mg for 4 days (days 2-5) albuterol sulfate 90 mcg/actuation HFA aerosol inhaler 1 puff inhalation QID Qty: 6.7 0RF amoxicillin-pot clavulanate 875-125 mg tablet 1 tablet PO Q12H 7 Days Qty: 14 0RF benzonatate 100 mg capsule 100 mg PO BID PRN (Reason: cough) Qty: 14 0RF cyclobenzaprine 10 mg tablet 10 mg PO BID PRN (Reason: muscle spasm) Qty: 14 0RF albuterol sulfate 2.5 mg /3 mL (0.083 %) solution for nebulization 2.5 mg inhalation Q4H PRN (Reason: bronchospasm) Qty: 75 0RF Follow-up/Referrals: Summer,QUINTEN Cedeno [Primary Care Provider] - Stand Alone Forms: Work/School Release IP
== END 2024-06-24 07:01 | disposition home or self-care (01) ==
PROVIDERS: Emergency Provider Emergency Medicine; PCP Physician Assistant
DX: J45.909 Unspecified asthma, uncomplicated (principal); F17.210 Nicotine dependence, cigarettes, uncomplicated; K21.9 Gastro-esophageal reflux disease without esophagitis; D64.9 Anemia, unspecified; F41.9 Anxiety disorder, unspecified
CPT/HCPCS: 36415; 71046; 80053; 85025; 93005; 94640; 96365; 96375; 99284; A9270; J1100; J3475; J7030

== ENCOUNTER 2024-08-03 15:18 | Outpatient (CLI) | payer OTHER, MEDICAID, SELFPAY ==
--- OUTSIDE RECORDS SUMMARY | 2024-08-03 17:56 | XMS_ITS | Data Portability ---
Author Organization [facility] ERINAmanda HewittMontebello Reji Address [address] [facility] [place] [address] Care Team Providers Care Music Journalist Name Role Phone PAO AGGARWAL Primary Care Provider [phone] Assessment No assessment recorded. Plan of Treatment Reminders Order Date Submit Date Provider Last Modified By Organization Details Last Modified Time Details Appointments ANY 15 2024 07:30A M QUINTEN ALEXANDER Not available Not available Not available Lab surgical pathology study 2023 024 [facility], [facility][note 3][address] [facility], [address], [place], [address], 01/08/2024 14:34:14 magnesium , serum or plasma 2023 024 [facility], [address] [facility], [address], [place], [address], 11/15/2023 10:17:09 CMP, serum or plasma 2023 024 [facility], [facility][note 3]7 [facility], [address], [place], [address], 11/15/2023 10:17:08 TSH + free T4, serum 2022 023 [facility], [address] [facility], [address], [place], [address], 03/13/2023 12:13:54 CMP, serum or plasma 2022 023 [facility], [address], [place], [address], 03/12/2023 19:09:08 lipid panel, serum 2022 023 [facility], [address], [place], [address], 03/12/2023 19:09:07 CBC w/ auto diff 2022 023 [facility], [address], [place], [address], 03/12/2023 19:09:09 HbA1c (hemoglob in A1c), blood 2022 023 [facility], [address], [place], [address], 03/13/2023 12:13:54 vitamin D, 25-hydrox y, total, serum 2022 023 [facility], [address] [facility], [address], [place], [address], 03/13/2023 12:13:55 Referral podiatris t referral 2023 024 Derrek Campbell [facility], [address], [address], [place], [address], 04/23/2024 07:52:57 obstetric keiry and gynecolog ist referral 2023 024 [email or web address] Javan Zamorano, [address] [facility] [address], [place], [address], 04/22/2024 07:55:49 obstetric keiry and gynecolog ist referral 2022 [facility], [address] [place] [address], [address], 04/25/2023 11:20:11 Procedures None recorded. Surgeries None recorded. Imaging MAMMO, diagnosti c, bilateral [address] [facility] [address] [facility], [address], [place], [address], 04/15/2024 07:52:52 MAMMO, screening , bilateral [address] [facility], [address], [place], [address], 01/10/2024 07:56:54 US, axilla [address] (Imaging), [facility] [address] [place] [address], [address], 01/10/2024 07:56:53 MAMMO, screening , bilateral [address] (Cardiology & Emg), [address] [facility], [place], [address], 03/12/2023 16:10:12 Medication Orders tizanidin e 2 mg tablet 2023 [facility], [address] [facility], [place], [address], 04/08/2024 16:07:24 nicotine 14 mg/24 hr daily transderm al patch 2023 [facility], [address] [facility], [place], [address], 04/08/2024 16:01:57 malathion 0.5 % lotion 2023 [facility], [address] [facility], [place], [address], 01/03/2024 16:58:16 beclometh asone diprop 40 mcg/actua tion HFA breath activated aerosol 2023 024 [facility], [address] [place], [address], 12/06/2023 17:02:45 cyclobenz aprine 5 mg tablet 2023 024 [facility], [facility] [place], [address], 11/13/2023 17:09:50 ibuprofen 800 mg tablet 2023 024 [facility], [address] [place], [address], 11/13/2023 17:09:49 fluticaso ne propionat e 44 mcg/actua tion HFA aerosol inhaler 2023 024 [id number], [address] [place], [place], [id number], 12/06/2023 17:05:10 amoxicill in 875 mg-potass ium clavulana te 125 mg tablet 2022 023 [facility], [address] [place], [place], [id number], 11/17/2023 16:17:55 albuterol sulfate HFA 90 mcg/actua tion aerosol inhaler 2022 023 [id number], [address] [place], [place], [id number], 03/12/2023 15:43:01 Patient TargetsNo targets recorded. Patient Instructions Encounter Date Encounter Id Patient Instructions Last Modified By Organization Details Last Modified Time 03/12/2023 [id number] Quitting Tobacco : Care Instructions [email or web address] Not available 03/12/2023 15:42:25 A healthy lifestyle: care instructions [email or web address] Not available 03/12/2023 15:42:25 12/06/2023 [id number] diverticulitis: care instructions [email or web address] Not available 12/10/2023 17:13:54 learning about diverticulosis and diverticulitis kbarbero Not available 12/10/2023 17:13:53 04/08/2024 [id number] Quitting Tobacco : Care Instructions [email or web address] Not available 04/08/2024 16:01:52 Reason for Referral 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 Referral for Screening for malignant neoplasm of cervix Referring Physician: Pao Aggarwal [facility], Encounter Date: 03/12/2023 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 right foot Referring Physician: Pao Aggarwal [facility], Encounter Date: 04/08/2024 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 Referral for Screening for malignant neoplasm of cervix Referring Physician: Pao Aggarwal [facility], Encounter Date: 04/08/2024 Results Created Date Observation Date Name Description Value Unit Range Abnormal Flag Note LastModifiedBy Organization Detail LastModifiedTime 03/12/2003/12/2023 LIPID PANEL WITH LDL/H DL RATIO cholesterol, total 148 mg/dL 100-19 9 Not Available [facility] [address] [place], [address], 03/12/2023 19:09:07 03/12/2003/12/2023 LIPID PANEL WITH LDL/H DL RATIO triglyceride s 226 mg/dL 0-149 above high normal Not Available [facility] [address] [place], [address], 03/12/2023 19:09:07 03/12/2003/12/2023 LIPID PANEL WITH LDL/H DL RATIO HDL cholesterol 28 mg/dL 40-999 below low normal Not Available [facility] [address] [place], [address], 03/12/2023 19:09:07 03/12/20 23 03/12/2023 LIPID PANEL WITH LDL/H DL RATIO VLDL cholesterol mayte 45 mg/dL 5-40 above high normal Not Available [facility] [address] [place], [address], 03/12/2023 19:09:07 03/12/20 23 03/12/2023 LIPID PANEL WITH LDL/H DL RATIO LDL chol calc (nih) 110 mg/dL 0-99 above high normal Not Available [facility] [address] [place], [address], 03/12/2023 19:09:07 03/12/20 23 03/12/2023 LIPID PANEL WITH LDL/H DL RATIO LDL/HDL ratio 3.9 0-3.2 above high normal Not Available [facility] [address] [place], [address], 03/12/2023 19:09:07 03/12/20 23 03/12/2023 COMP. METAB OLIC PANEL (14) glucose 118 mg/dL 70-99 above high normal Not Available [facility] [address] [place], [address], 03/12/2023 19:09:08 03/12/20 23 03/12/2023 COMP. METAB OLIC PANEL (14) BUN 10 mg/dL 6-24 Not Available [facility] [address] [place] [address], [address], 03/12/2023 19:09:08 03/12/20 23 03/12/2023 COMP. METAB OLIC PANEL (14) creatinine 0.80 mg/dL 0.76-1 .27 Not Available [facility] [address] [place], [address], 03/12/2023 19:09:08 03/12/20 23 03/12/2023 COMP. METAB OLIC PANEL (14) eGFR 94 >=60 Units for eGFR value s are mL/mi n/1.7 3 The eGFR Calcu latio n has not been valid ated for patie nts under the age of 18. If test resul ts are displ ayed for a patie nt under the age of 18, disre jenniffer that value . Not Available [facility] [address] [place], [address], 03/12/2023 19:09:08 03/12/20 23 03/12/2023 COMP. METAB OLIC PANEL (14) BUN/creatini ne ratio 12 9-23 Not Available [facility] Department [address] [place], [address], 03/12/2023 19:09:08 03/12/20 23 03/12/2023 COMP. METAB OLIC PANEL (14) sodium 145 mmol/ L 134-14 4 above high normal Not Available [facility] [address] [place], [address], 03/12/2023 19:09:08 03/12/20 23 03/12/2023 COMP. METAB OLIC PANEL (14) potassium 3.4 mmol/ L 3.5-5. 2 below low normal Not Available [facility] [address] [place], [address], 03/12/2023 19:09:08 03/12/20 23 03/12/2023 COMP. METAB OLIC PANEL (14) chloride 109 mmol/ L 96-106 above high normal Not Available [facility] [address] [place], [address], 03/12/2023 19:09:08 03/12/20 23 03/12/2023 COMP. METAB OLIC PANEL (14) carbon dioxide, total 24 mmol/ L 20-29 Not Available [facility] [address] [place], [address], 03/12/2023 19:09:08 03/12/20 23 03/12/2023 COMP. METAB OLIC PANEL (14) calcium 8.9 mg/dL 8.7-10 .2 Not Available [facility] [address] [place], [address], 03/12/2023 19:09:08 03/12/20 03/12/2023 COMP. METAB OLIC PANEL (14) protein, total 6.8 g/dL 6.0-8. 5 Not Available [facility] [address] [place], [address], 03/12/2023 19:09:08 03/12/20 23 03/12/2023 COMP. METAB OLIC PANEL (14) albumin 4.0 g/dL 3.9-4. 9 Not Available [facility] [address] [place], [address], 03/12/2023 19:09:08 03/12/2003/12/2023 COMP. METAB OLIC PANEL (14) globulin, total 2.8 g/dL 1.5-4. 5 Not Available [facility] [address] [place], [address], 03/12/2023 19:09:08 03/12/20 23 03/12/2023 COMP. METAB OLIC PANEL (14) A/G ratio 1.0 1.2-2. 2 below low normal Not Available [facility] [address] [place], [address], 03/12/2023 19:09:08 03/12/20 23 03/12/2023 COMP. METAB OLIC PANEL (14) bilirubin, total 0.2 mg/dL 0.0-1. 2 Not Available [facility] [address] [place], [address], 03/12/2023 19:09:08 03/12/20 23 03/12/2023 COMP. METAB OLIC PANEL (14) alkaline phosphatase 76 IU/L 44-121 Not Available [facility] Department [address] [place], [address], 03/12/2023 19:09:08 03/12/20 23 03/12/2023 COMP. METAB OLIC PANEL (14) AST (SGOT) 11 IU/L 0-40 Not Available [facility] Department [address] [place], [address], 03/12/2023 19:09:08 03/12/2003/12/2023 COMP. METAB OLIC PANEL (14) ALT (SGPT) 11 IU/L 0-32 Not Available [facility] [address] [place], [address], 03/12/2023 19:09:08 03/12/2003/12/2023 CBC WITH DIFFE RENTI AL/PL ATELE T WBC 13.4 x10e3 /uL 3.4-10 .8 above high normal Not Available [facility] [address] [place], [address], 03/12/2023 19:09:09 03/12/2003/12/2023 CBC WITH DIFFE RENTI AL/PL ATELE T RBC 4.92 x10e6 /uL 3.77-5 .28 Not Available [facility] [address] [place], [address], 03/12/2023 19:09:09 03/12/2003/12/2023 CBC WITH DIFFE RENTI AL/PL ATELE T hemoglobin 15.5 g/dL 11.1-1 5.9 Not Available [facility] [address] [place], [address], 03/12/2023 19:09:09 03/12/2003/12/2023 CBC WITH DIFFE RENTI AL/PL ATELE T hematocrit 43.7 % 34.0-4 6.6 Not Available [facility] [address] [place], [address], 03/12/2023 19:09:09 03/12/2003/12/2023 CBC WITH DIFFE RENTI AL/PL ATELE T MCV 89 fL 79-97 Not Available [facility] [address] [place], [address], 03/12/2023 19:09:09 03/12/20 23 03/12/2023 CBC WITH DIFFE RENTI AL/PL ATELE T MCH 31.5 pg 26.6-3 3.0 Not Available [facility] [address] [place], [address], 03/12/2023 19:09:09 03/12/2003/12/2023 CBC WITH DIFFE RENTI AL/PL ATELE T MCHC 35.5 g/dL 31.5-3 5.7 Not Available [facility] [address] [place], [address], 03/12/2023 19:09:09 03/12/2003/12/2023 CBC WITH DIFFE RENTI AL/PL ATELE T RDW 13.0 % 11.5-1 4.5 Not Available [facility] [address] [place], [address], 03/12/2023 19:09:09 03/12/2003/12/2023 CBC WITH DIFFE RENTI AL/PL ATELE T platelets 277 x10e3 /uL 150-45 0 Not Available [facility] [address] [place], [address], 03/12/2023 19:09:09 03/12/20 23 03/12/2023 CBC WITH DIFFE RENTI AL/PL ATELE T neutrophils 67 % notest b. Not Available [facility] [address] [place], [address], 03/12/2023 19:09:09 03/12/2003/12/2023 CBC WITH DIFFE RENTI AL/PL ATELE T lymphs 25 % notest b. Not Available [facility] [address] [place], [address], 03/12/2023 19:09:09 10/03/20 23 03/12/2023 CBC WITH DIFFE RENTI AL/PL ATELE T monocytes 3 % notest b. Not Available [facility] [address] [place], [address], 03/12/2023 19:09:09 03/12/20 23 03/12/2023 CBC WITH DIFFE RENTI AL/PL ATELE T eos 4 % notest b. Not Available [facility] [address] [place], [address], 03/12/2023 19:09:09 03/12/2003/12/2023 CBC WITH DIFFE RENTI AL/PL ATELE T basos 1 % notest b. Not Available [facility] [address] [place], [address], 03/12/2023 19:09:09 03/12/20 23 03/12/2023 CBC WITH DIFFE RENTI AL/PL ATELE T neutrophils (absolute) 8.9 x10e3 /uL 1.4-7. 0 above high normal Not Available [facility] [address] [place], [address], 03/12/2023 19:09:09 03/12/2003/12/2023 CBC WITH DIFFE RENTI AL/PL ATELE T lymphs (absolute) 3.3 x10e3 /uL 0.7-3. 1 above high normal Not Available [facility] [address] [place], [address], 03/12/2023 19:09:09 03/12/2003/12/2023 CBC WITH DIFFE RENTI AL/PL ATELE T monocytes(ab solute) 0.5 x10e3 /uL 0.1-0. 9 Not Available [facility] [address] [place], [address], 03/12/2023 19:09:09 03/12/20 23 03/12/2023 CBC WITH DIFFE RENTI AL/PL ATELE T eos (absolute) 0.5 x10e3 /uL 0.0-0. 4 above high normal Not Available [facility] [address] [place], [address], 03/12/2023 19:09:09 03/12/2003/12/2023 CBC WITH DIFFE RENTI AL/PL ATELE T baso (absolute) 0.1 x10e3 /uL 0.0-0. 2 Not Available [facility] [address] [place], [address], 03/12/2023 19:09:09 03/12/2003/12/2023 CBC WITH DIFFE RENTI AL/PL ATELE T immature granulocytes 0.3 % notest b. Not Available [facility] [address] [place], [address], 03/12/2023 19:09:09 03/12/2003/12/2023 CBC WITH DIFFE RENTI AL/PL ATELE T immature grans (abs) 0.0 x10e3 /uL 0.0-0. 1 Not Available [facility] [address] [place], [address], 03/12/2023 19:09:09 03/12/2003/12/2023 CBC WITH DIFFE RENTI AL/PL ATELE T NRBC 0 % 0-0 Not Available [facility] [address] [place], [address], 03/12/2023 19:09:09 03/12/2003/13/2023 TSH+F REE T4 TSH 0.853 uIU/m L 0.450- 4.500 Not Available [facility] ([facility]) [address] [facility], [place], [address], 03/13/2023 12:13:54 03/12/2003/13/2023 TSH+F REE T4 T4,free(dire ct) 1.40 NG/dL 0.82-1 .77 Not Available [facility] ([facility]) [address] [facility], [place], [address], 03/13/2023 12:13:54 03/12/2003/13/2023 HEMOG LOBIN A1C hemoglobin A1C 5.0 % 4.8-5. 6 Predi abete s: 5.7 - 6.4 Diabe etienne: >6.4 Glyce zainab contr ol for adult s with diabe etienne: <7.0 Not Available [facility] ([facility]) [address] [facility], [place], [address], 03/13/2023 12:13:54 03/12/20 23 03/13/2023 VITAM IN [...] Medic ine). 2009. Dieta ry refer ence intak es for calci um and D. Bo amaya [place]: [facility] . 2. Alex yost MF, Dajuan rosales [place], Ismael off-F errar i ISABEL, et al. Evalu ation , treat ment, and preve ntion of vitam in D defic iency : an Endoc rine Socie ty clini mayte pract ice guide line. JCEM. 2010; 96(7) :1911 -30. Not Available [facility] ([facility]) [address] [facility], [place], [address], 03/13/2023 12:13:55 11/13/19 24 11/15/2023 COMP. METAB OLIC PANEL (14) glucose 77 mg/dL 70-99 Not Available [facility] ([facility]) [address] [place], [address], 11/15/2023 10:17:08 11/13/19 24 11/15/2023 COMP. METAB OLIC PANEL (14) BUN 14 mg/dL 6-24 Not Available [facility] ([facility]) [address] [place], [address], 11/15/2023 10:17:08 11/13/19 24 11/15/2023 COMP. METAB OLIC PANEL (14) creatinine 1.13 mg/dL 0.57-1 .00 above high normal Not Available [facility] ([facility]) [address] [place], [address], 11/15/2023 10:17:08 11/13/19 24 11/15/2023 COMP. METAB OLIC PANEL (14) eGFR 62 mL/mi n/1.7 3 >59 Not Available [facility] ([facility]) [address] [place], [address], 11/15/2023 10:17:08 11/13/19 24 11/15/2023 COMP. METAB OLIC PANEL (14) BUN/creatini ne ratio 12 9-23 Not Available [facility] ([facility]) [address] [facility] [place], [address], 11/15/2023 10:17:08 11/13/19 24 11/15/2023 COMP. METAB OLIC PANEL (14) sodium 139 mmol/ L 134-14 4 Not Available [facility] ([facility]) [address] [facility] [place], [address], 11/15/2023 10:17:08 11/13/19 24 11/15/2023 COMP. METAB OLIC PANEL (14) potassium 4.3 mmol/ L 3.5-5. 2 Not Available [facility] ([facility]) [address] [facility] [place], [address], 11/15/2023 10:17:08 11/13/19 24 11/15/2023 COMP. METAB OLIC PANEL (14) chloride 101 mmol/ L 96-106 Not Available [facility] ([facility]) [address] [facility], [place], [address], 11/15/2023 10:17:08 11/13/19 24 11/15/2023 COMP. METAB OLIC PANEL (14) carbon dioxide, total 22 mmol/ L 20-29 Not Available [facility] ([facility]) [address] [facility], [place], [address], 11/15/2023 10:17:08 11/13/19 24 11/15/2023 COMP. METAB OLIC PANEL (14) calcium 8.9 mg/dL 8.7-10 .2 Not Available [facility] ([facility]) [address] [facility] [place], [address], 11/15/2023 10:17:08 11/13/19 24 11/15/2023 COMP. METAB OLIC PANEL (14) protein, total 6.6 g/dL 6.0-8. 5 Not Available [facility] ([facility]) [address] [facility] [place], [address], 11/15/2023 10:17:08 11/13/19 24 11/15/2023 COMP. METAB OLIC PANEL (14) albumin 3.9 g/dL 3.9-4. 9 Not Available [facility] ([facility]) [address] [facility] [place], [address], 11/15/2023 10:17:08 11/13/19 24 11/15/2023 COMP. METAB OLIC PANEL (14) globulin, total 2.7 g/dL 1.5-4. 5 Not Available [facility] ([facility]) [address] [facility] [place], [address], 11/15/2023 10:17:08 11/13/19 24 11/15/2023 COMP. METAB OLIC PANEL (14) A/G ratio 1.4 1.2-2. 2 Not Available [facility] ([facility]) [address] [place], [address], 11/15/2023 10:17:08 11/13/19 24 11/15/2023 COMP. METAB OLIC PANEL (14) bilirubin, total <0.2 mg/dL 0.0-1. 2 Not Available [facility] ([facility]) [address] [facility], [place], [address], 11/15/2023 10:17:08 11/13/19 24 11/15/2023 COMP. METAB OLIC PANEL (14) alkaline phosphatase 86 IU/L 44-121 Not Available [facility] ([facility]) [address] [facility], [place], [address], 11/15/2023 10:17:08 11/13/19 24 11/15/2023 COMP. METAB OLIC PANEL (14) AST (SGOT) 14 IU/L 0-40 Not Available [facility] ([facility]) [address] [place], [address], 11/15/2023 10:17:08 11/13/19 24 11/15/2023 COMP. METAB OLIC PANEL (14) ALT (SGPT) 20 IU/L 0-32 Not Available [facility] ([facility]) [address] [facility], [place], [address], 11/15/2023 10:17:08 11/13/19 24 11/15/2023 MAGNE SIUM magnesium 2.1 mg/dL 1.6-2. 3 Not Available [facility] ([facility]) [address] [place], [address], 11/15/2023 10:17:09 01/03/20 24 01/08/2024 PATHO LOGY REPOR T . COMMEN T Mater ial submi tted: . axill a - RIGHT AXILL A. Modif iers: right Not Available [facility] ([facility]) [address] [facility], [place], [address], 01/08/2024 14:34:14 01/03/20 24 01/08/2024 PATHO LOGY REPOR T . COMMALEX T Clini viv provi ded ICD-1 0: L91.8 Not Available [facility] ([facility]) [address] [facility], [place], [address], 01/08/2024 14:34:14 01/03/20 24 01/08/2024 PATHO LOGY REPOR T . SHAHRZAD Vaca Diagn osis: FIBRO EPITH ELIAL POLYP . TMZ 01/07 0826 Local Not Available [facility] ([facility]) [address] [facility], [place], [address], 01/08/2024 14:34:14 01/03/20 24 01/08/2024 PATHO LOGY REPOR T . SHAHRZAD T Jasson france d: . Donavon MD, [place] topat holog ist Not Available [facility] ([facility]) [address] [facility], [place], [address], 01/08/2024 14:34:14 01/03/20 24 01/08/2024 PATHO LOGY [...] RA 01/07 0826 Local Not Available [facility] ([facility]) [address] [facility], [place], [address], 01/08/2024 14:34:14 01/03/20 24 01/08/2024 PATHO LOGY REPOR T . COMMEN T Patho logis t provi ded ICD-1 0: L91.9 Not Available [facility] ([facility]) [address] [facility], [place], [address], 01/08/2024 14:34:14 01/03/20 24 01/08/2024 PATHO LOGY REPOR T . COMMALEX T CPT . 39247 1 Not Available [facility] ([facility]) [address] [facility], [place], [address], 01/08/2024 14:34:14 11/07/19 24 11/06/2023 XR, chest , 2 view No observ ation record ed. [address], [place], [address], 11/12/2023 10:39:15 11/15/19 24 11/15/2023 CT, abdom en + pelvi s, w/ contr ast No observ ation record ed. [address], [place], [address], 11/15/2023 15:51:03 01/22/20 24 01/22/2024 US, axill a No observ ation record ed. [address], [place], [address], 01/22/2024 16:37:59 04/24/20 24 04/24/2024 MAMMO , diagn ostic , bilat eral No observ ation record ed. [facility] [address], [place], [address], 04/27/2024 12:11:37 05/25/20 24 05/24/2024 XR, chest , 2 view No observ ation record ed. [email or web address], [place], [address], 05/26/2024 09:16:27 06/18/19 25 06/18/2024 XR, chest , 2 view No observ ation record ed. [address] [facility], [place], [address], 07/14/2024 17:10:15 06/24/19 25 06/23/2024 imagi ng/di agnos tic resul t No observ ation record ed. [address] [address], [place], [address], 07/22/2024 10:42:57 Result Notes None recorded. Problems Name Problem SNOMED Code Status Onset Date Resolution Date Notes Provider Name and Address Organization Details Recorded Time Anemia 476035708 Active Ewa Esqueda [place] null, [place] [facility] 5 10:50:39 Fibromyalgia 037208842 Active 2022 Priya Griffiths [place] null, [place] [facility] 3 15:21:52 Mild intermittent asthma 846443167 Active 2022 QUINTEN ALEXANDER Attn: Patric wheatley,[address] [facility], [place], [address], [place] [facility] 3 12:38:16 Vitamin D deficiency 53888821 Active 2022 QUINTEN ALEXANDER Attn: Accountvanessa g,[address], [place], [address], [place] [facility] 3 12:38:21 Smoker 20073649 Active 2022 QUINTEN ALEXANDER Attn: Accountvanessa g,[address], [place], [address], [place] [facility] 3 12:38:19 Obesity 936075638 Active 2022 QUINTEN ALEXANDER Attn: Accountvanessa g,[address] [facility], [place], [address], [place] [facility] 3 12:38:18 Diverticulitis of sigmoid colon [id number] Active 2023 QUINTEN ALEXANDER Attn: Accountvanessa g,2040 [facility], [place], [address], [place] [facility] 4 17:13:57 Notes:Some problems listed i n Document: #[id number] could not be added to this patient's chart. Please review this document and add these problems to the patient's chart manually as needed. Problem Notes None recorded. Procedures Surgical History Date Name Laterality Status Provider Name and Address Organization Details Recorded Time 4 Skin Tag Removal completed QUINTEN ALEXANDER Attn: Accounting,2 041 [facility], [place], [address], [place] [facility] 01/03/2024 17:06:14 7 endometrial ablation completed QUINTEN ALEXANDER Attn: Accounting,2 041 [facility], [place], [address], [place] [facility] 03/12/2023 15:34:16 4 section completed QUINTEN ALEXANDER Attn: Accounting,2 041 [facility], [place], [address], [place] [facility] 01/03/2024 16:49:30 4 ligation of fallopian tube completed QUINTEN ALEXANDER Attn: Accounting,2 [address] [facility] , [place], [address], [place] [facility] 01/03/2024 16:49:55 9 Caesarean Section completed Ewa Esqueda MA [facility] 08/04/2014 10:50:39 0 Caesarean Section completed Ewa Esqueda MA [facility] 08/04/2014 10:50:39 Imaging Results Imaging Date Name Status LastModified by Organiz ation Details LastModified Time 11/06/2023 XR, chest, 2 view completed [address], [address], 11/12/2023 10:39:15 11/15/2023 CT, abdomen + pelvis, w/ contrast completed [address], [address], 11/15/2023 15:51:03 01/22/2024 US, axilla completed [address], [address], 01/22/2024 16:37:59 04/24/2024 MAMMO, diagnostic, bilateral completed [facility] [address], [place], [address], 04/27/2024 12:11:37 05/24/2024 XR, chest, 2 view completed [address], [address], 05/26/2024 09:16:27 06/18/2024 XR, chest, 2 view completed [address], [address], 07/14/2024 17:10:15 06/23/2024 imaging/diagno stic result completed [address], [address], 07/22/2024 10:42:57 Procedure Notes None recorded. Medical Equipment None Reported. Allergies Allergen ID Allergen Name Allergen Category Reaction Reaction Severity Criticality Documentation Date Start Date Code Code System Note Provider Name and Address Organization Details Recorded Time 56924 Lodine medicatio n other severe Not available 08/04/2014 8 RxNorm Not Available Not Available Not Available Medications Name Sig Start Date Stop Date Status Note LastModified by Organization Details LastModified Time cephalexin 500 mg caps 06/17 completed Not [...] Updated DateTime 3 154.94 cm 34.1 kg/m2 24979.7 3 g 98 % 98 % 90 /min 16 /min 128 mm[Hg] 88 mm[Hg] Priya Griffiths [place] [facility] 3 15:21:13 Date Recorded Body height Respiratory rate Body mass index (BMI) Body weight Oxygen saturation Oxygen saturation in Arterial blood by Pulse oximetry Heart rate Systolic blood pressure Diastolic blood pressure Provider Name and Address Organization Details Last Updated DateTime 4 154.94 cm 16 /min 36.7 kg/m2 94954.0 2 g 98 % 98 % 94 /min 115 mm[Hg] 82 mm[Hg] Priya Griffiths MA [facility] 4 16:51:49 Date Recorded Body height Body mass index (BMI) Body weight Oxygen saturation Oxygen saturation in Arterial blood by Pulse oximetry Heart rate Respiratory rate Systolic blood pressure Diastolic blood pressure Provider Name and Address Organization Details Last Updated DateTime 4 154.94 cm 36.7 kg/m2 13397.6 2 g 99 % 99 % 81 /min 18 /min 123 mm[Hg] 86 mm[Hg] Monserrat Mcmahon MA [facility] 4 16:39:20 Date Recorded Body height Body mass index (BMI) Body weight Oxygen saturation Oxygen saturation in Arterial blood by Pulse oximetry Heart rate Respiratory rate Systolic blood pressure Diastolic blood pressure Provider Name and Address Organization Details Last Updated DateTime 4 154.94 cm 37.1 kg/m2 36197.2 g 97 % 97 % 97 /min 16 /min 121 mm[Hg] 85 mm[Hg] Priya Griffiths MA [facility] 4 16:34:46 Date Recorded Body height Body mass index (BMI) Body weight Oxygen saturation Oxygen saturation in Arterial blood by Pulse oximetry Heart rate Respiratory rate Systolic blood pressure Diastolic blood pressure Provider Name and Address Organization Details Last Updated DateTime 4 154.94 cm 37.5 kg/m2 86111.0 9 g 99 % 99 % 95 /min 16 /min 111 mm[Hg] 78 mm[Hg] Monserrat Mcmahon [place] [facility] 15:50:46 Social History Question Answer Notes LastModified by Organizat ion Details LastModified Time Tobacco Smoking Status Current Every Day Smoker Ewa Esqueda MA null, [place] [facility] 08/04/2014 10:50:39 What Is Your Level Of Alcohol Consumption? Occasional [email or web address] Information not available 03/12/2023 What Is Your Level Of Caffeine Consumption? Occasional [email or web address] Information not available 08/04/2014 What Type Of Diet Are You Following? REGULAR [email or web address] Information not available 08/04/2014 Education 12 [email or web address] Information no t available 08/04/2014 What Was The Date Of Your Most Recent Tobacco Screening? 04/08/2024 Information not available 04/08/2024 Seat Belts Used Routinely Yes [email or web address] Information not available 08/04/2014 How Much Tobacco Do You Smoke? 0.5 PPD Information not available 08/04/2014 Has Tobacco Cessation Counseling Been Provided? Yes [email or web address] Information not available 03/12/2023 On What Date Was Tobacco Cessation Counseling Provided? 04/08/2024 Information not available 04/08/2024 How Many Years Have You Smoked Tobacco? 16 [email or web address] Information not available 08/04/2014 Sex: Unknown Functional Status None recorded. Mental Status None recorded. Family History Relationship Description Onset Age of this Age Resolved Age Notes LastModified by Organization Details LastModified Time Mother Hypertensive disorder [email or web address] Not available 2014 10:26:18 Mother Diabetes mellitus [email or web address] Not available 2014 10:26:18 Mother Kidney disease [email or web address] Not available 2014 10:26:18 Medical History Condition Response Other N Breast Cancer N Lung Disease N Depression N Breast Problem N Anesthesia Complications N Headaches/Migraines Y Anxiety Disorder N Arthritis N Infertility N Polyps N Acid Reflux (GERD) N Cancer N Stroke N Endometriosis N High Cholesterol N Fibromyalgia N Kidney Disease N Heart Problems N Kidney or Bladder Problems N Thyroid Problems N GI Problems N Acne N Eating Disorder N Anemia Y Ovarian Cancer N Diabetes N Blood Transfusions N Abuse/Domestic Violence N Asthma N Hepatitis N Heart Disease N Pre-Eclampsia N Hypertension N Osteoporosis N Gynecological History Statement/Question Response Date of [...] Diagnosis/Indication Diagnosis SNOMED-CT Code Diagnosis ICD10 Code Diagnosis Note [id number] Osvaldo HurtadoDO [facility] (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) [address] [place] [address] 08/04/2014 09:45:08 08/04/2014 15:25:51 Pain in pelvis 04685152 [id number] YESI Lawson NP [facility] [address] [place] [address] 06/17/2018 11:25:42 06/17/2018 13:11:06 Vitamin D deficiency 37941102 E55.9 -Check Vit D level Pain of le ft hip joint 5875783776 95829 M25.552 -Obtain x-ray left hip-Naprox en prn-Contin ue conservati ve tx- ice, heat, rest, stretching -F/u prn Asthma 076080218 J45.90 9 -Renew ventolin Gastroesop hageal reflux disease 637977397 K21.9 -Renew ranitidine Sacral back pain 9422756 3 M54.5 -Obtain x-ray sacrum-Nap roxen prn -Continue conservati ve tx- ice, heat, rest, stretching -F/u prn Body mass index 30+ - obesity 763180263 Z68.37 -Obtain labs Pain in toe 820313288 M7 9.674 -Obtain labs-R/o gout, infection [id number] QUINTEN ALEXANDER [facility] [address] [place] [address] 03/12/2023 15:16:54 03/12/2023 16:10:11 Smoker 68745682 F17.200 1/2 ppdcutting back Depression screening 171 476838 Z13.31 PHQ 2 Screening for malignant neoplasm of cervix 752434292 Z12.4 vaginal spotting x1 yr, spots for 1-2 days then stopsprevi ously establishe d 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- couldn't figure out why she was passing clots, softball size, told that her endometriu m was normaldiag nosed with PCOSh/o endometria l ablationre shayne to 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 Screening for malignant neoplasm of breast 604564957 Z12.39 has never had mammogram Obesity 200646030 E66.9 discussed increasing exercise and healthier food options, high protein, low fat diet Loss of hair 560531601 L 65.9 x10 yrsconcern ed for thyroid issueshas not tried any meds for hair growthchec k TSH, can add on antibodies Mild inter mittent asthma 238950015 J45.20 refill Vitamin D deficiency 347 15347 E55.9 re-check Bacterial upper respiratory infection 480709111 A49.9 x1 wkcough, congestion , headaches, rhinorrhea mild relief with OTC medsno sick contactsPE x- nltrial augmentin x7 days - Drink lots of fluids, water, gatorade.- Run a cool-mist humidifier in your room at night.- For sore throat, gargle warm salt water.- Get extra rest and do not over-exert yourself.- Do not mix multiple medication s with similar ingredient s (for instance Theraflu Non-drowsy and Tylenol Sinus). Doubling up on acetaminop hen and/or decongesta nts such as pseudephed rine can be dangerous. - Robitussin DM at bed time only (if cough keeps you awake) (and if not or on SSRI antidepres sants. [id number] QUINTEN ALEXANDER [facility] [address] [place] [address] 11/13/2023 16:40:10 11/13/2023 17:08:11 Mild intermittent asthma 831764412 J45.20 went to ED 1 wk ago due to SOB, no improvemen t with albuterolb reathing treatment, CXR nl, finished prednisone and augmentin w/ improvemen tPEx- nltrial ICSf/u in 1 mo Hypokalemia 59521585 E87 .6 low in ED, will re-check Hypomagnesemia 034393020 E83.42 low in ED, will re-checkta joel magnesium supplement 200 mg Spasm of back muscles 20 6795731 M62.830 since potassium IVlow back crampingPE x- mild TTP L upper trapezius muscletria l flexeril and ibuprofen Depression screening 171 375494 Z13.31 PHQ 0 [id number] QUINTEN ALEXANDER [facility] [address] [place] [address] 12/06/2023 16:33:06 12/06/2023 17:10:33 Diverticulitis of sigmoid colon 253779022 K57.32 diagnosed with acute sigmoid diverticul itis on 11/15/23 per EDput on flagyl and cipro w/ improvemen t of sxstates that she ate popcorn prior to onset on sxPEx- nldiscusse d symptoms and what foods to avoid to prevent flare Mild inter mittent asthma 117025949 J45.20 12/06/23: insurance will not cover flovent, will trial Qvar redihaler 11/13/23:molly t to ED 1 wk ago due to SOB, no improvemen t with albuterolb reathing treatment, CXR nl, finished prednisone and augmentin w/ improvemen tPEx- nltrial ICSf/u in 1 mo Depression screening 171 740102 Z13.31 PHQ 0 [id number] QUINTEN ALEXANDER [facility] [address] [place] [address] 01/03/2024 16:27:50 01/03/2024 17:00:23 Mass of axilla 973993078 R22.2 x2 wkscomes and goescan be painfulPEx - 1 cm x 2 cm nodule to L axilla, freely mobile, non-TTPord ered US bilateral Screening for malignant neoplasm of breast 597740031 Z12.39 has never had mammogram Skin tag 742269752 L91.8 to R axillaremo bessy without difficulty sent for pathology Pediculosis capitis 8100 0006 B85.0 daughter with liceno relief with permethrin , on back order at pharmacyre questing malathion [id number] QUINTEN ALEXANDER [facility] [address] [place] [address] 04/08/2024 15:41:41 04/08/2024 16:18:22 Depression screening 111040272 Z13.31 PHQ 0 Smoker 67513054 F17.200 1/2 ppd, cutting back on her ownfor 30 yrstrial nicotine patches Spasm of back muscles 20 3916958 M62.830 04/08/24: muscle cramps to mid back, legs, feet x3 mocutting back on soda, increasing fluid intake and foods high in potassiume ncouraged stretching daily and heating padflexeri l made her feel sleepy, can trial lower dose of tizanidine 11/13/23: since potassium IVlow back crampingPE x- mild TTP L upper trapezius muscletria l flexeril and ibuprofen Pain in right foot 58338 67237 30046 M79.671 R MTP jointinter mittent, can swell and painful with walking in certain shoesPEx- nlrefer to podiatry Screening for malignant neoplasm of cervix 681129262 Z12.4 04/08/24: printed off referral and encouraged pt to call to schedule appt 03/12/23: vaginal spotting x1 yr, spots for 1-2 days then stopsprevi ously establishe d with 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- couldn't figure out why she was passing clots, softball size, told that her endometriu m was normaldiag nosed with PCOSh/o endometria l ablationre shayne to 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 Screening for malignant neoplasm of breast 448335087 Z12.39 has never had mammogram Health Concerns Section Related Observation LastModified by Organization Detai ls LastModified Time None Recorded Concern Status LastModified by Organization Details LastModified Time None Recorded Advance Directives Directive None Recorded Payers Encounter Date Sequence Insurance Name Policy Number Policy Karimi Covered Member ID Karimi Member ID Guarantor Name 03/12/2023 1 [facility] [id number] Silke Read [id number] Silkezuleima Read 03/12/2023 1 [facility] - DOS ON OR AFTER 2020 - DUAL ELIGIBLE (MEDICARE REPLACEMENT/AD VANTAGE - HMO) Silke Read [id number] Silke Read 11/13/2023 1 [facility] [id number] Silke Read [id number] Silke Bussa 11/13/2023 2 [facility] - DOS ON OR AFTER 20 (MEDICAID REPLACEMENT - HMO) Silke Bussa [id number] Silke Bussa 12/06/2023 1 [facility] [id number] Silke Nieves Bussa [id number] Silke Bussa 12/06/2023 2 [place] [facility] Silke Bussa [id number] Silke Bussa 01/03/2024 1 [facility] [id number] Silke Lizbeth Bussa [id number] Silke Bussa 01/03/2024 2 [place] [facility] Silke Bussa [id number] Silke Bussa 04/08/2024 1 [facility] [id number] Silke Lizbeth Bussa [id number] Silke Bussa 04/08/2024 2 [place] [facility] Silke Bussa [id number] Silke Bussa Notes Date Note Type Note [...] told everything is normal. QUINTEN ALEXANDER Attn: Accounting,[address] [facility], [place], [address], [facility] 03/13/2023 12:45:26 11/13/2023 [...] ED infiltrated her skin. QUINTEN ALEXANDER Attn: Accounting,[address] [facility], [place], [address], [facility] 11/17/2023 16:18:45 12/06/2023 text/html Pt presents for ED f/u. Reports three wks ago, she developed nausea, stomach pain, and blood in stool x2 days. States that she went to ED, diagnosed with diverticulitis and discharged home on 2 antibiotics w/ improvement. Endorses that she ate popcorn prior to onset of symptoms. QUINTEN ALEXANDER Attn: Accounting,[address] [facility], [place], [address], [facility] 12/10/2023 17:15:42 01/03/2024 text/html Pt presents for skin tag removal. QUINTEN ALEXANDER Attn: Accounting,[address] 1 [facility], [place], [place], [address] [place] [address], [facility] 01/03/2024 17:09:55 04/08/2024 text/html Pt presents to discuss muscle spasms, quitting smoking, R foot pain, and 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 referral.C/o muscle cramping to her back, legs, and feet for the past 3 moths. Calf and foot cramping is worse at night. She has been cutting back on her soda intake, drinking more water, and eating foods high in potassium. QUINTEN ALEXANDER Attn: Accounting,[address] [facility], [place], [address], [place] [facility] 04/10/2024 09:36:25 OBGyn Episode No OBEpisode recorded.
--- OUTSIDE RECORDS SUMMARY | 2024-08-03 17:56 | XMS_ITS | Clinical Summary ---
Author Organization [facility] Address [facility] [place] [address] Care Team Providers Care Pattern Ruler Name Role Phone Mimi Carrillo MD Primary Care Provider [phone] Allergies Active Allergy Reactions Criticality Noted Date Comments Etodolac Unknown High 01/12/2009 Causes dehydration Medications albuterol sulfate HFA (VENTOLIN HFA) 108 (90 Base) MCG/ACT inhaler 12/17/2016 Act lula vitamin D2, ergocalciferol, 24280 UNITS capsuleIndicatio ns:Low vitamin D level Take [...] 08/29/2015 Breast pain 02/10/2015 Cough variant asthma ([facility]) 12/23/2014 Piriformis syndrome 12/23/2014 Allergic rhinitis 09/21/2014 Seborrheic dermatitis 09/21/2014 Carpal tunnel syndrome 04/09/2014 IBS (irritable bowel syndrome) 02/18/2014 Fibromyalgia 02/18/2014 Obesity affecting , antepartum ([facility] ) 01/18/2009 Overview (07/24/2018): Overview: Previous delivery, antepartum condition or complication ([facility]) 01/18/2009 Resolved Problems Problem Noted Date Diagnosed Date Resolved Date Nausea 10/10/2017 09/17/2018 Cough 02/27/2017 09/17/2018 Flu-like symptoms 02/27/2017 09/17/2018 Flu vaccine need 03/12/2016 02/19/2020 Encounter for preventive health examination 02/15/2014 02/19/2020 Normal ([facility]) 06/08/2013 0 09/17/2018 with poor obstetri c history ([facility]) 01/18/2009 09/17/2018 Overview (07/24/2018): Overview: IMO Update [...] on file 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 Gender Identity Not on file Sexual Orientation Not on file Last Filed Vital Signs Vital Sign Reading Time Taken Comments Blood Pressure 129/82 10/17/2018 9:31 AM CDT Pulse 88 10/17/2018 9:31 AM CDT Temperature 36.7 C (98 F) 09/25/2018 9:31 AM CDT Respiratory Rate 14 [...] Td or Tdap) 10/15/2023 10/14/2013 COVID-19 Vaccine ( - 2023-2 5 season) 2024 Influenza Adult (#1) 2024 02/27/2017, 03/12/2016, 06/23/2013 HPV Vaccines Aged Out No longer eligi ble based on patient's age to complete this topic Meningococcal B Vaccine Aged Out No l onger eligible based on patient's age to complete this topic Meningococcal Vaccine Aged Out No myriam irasema eligible based on patient's age to complete this topic RSV Immunizations Under 20 Months Aged Out No longer eligible b ased on patient's age to complete this topic Insurance [facility] Care Teams Pattern Ruler Relationship Specialty Start Date End Date Mimi Carrillo MD [address] [place] [address] PCP - General FAMILY PRACTICE 07/24/18
--- OUTSIDE RECORDS SUMMARY | 2024-08-03 17:56 | XMS_ITS | Clinical Summary ---
Author Organization [facility] Address [address] [place] [address] Care Team Providers Care Tow Feeder Name Role Phone Unavailable Primary Care Provider Unavailabl e Source Comments [facility],non-owned Affiliates and Associated Physician Practices is amultiple site organization consisting of ambulatory clinics and hospital sitesin [place], [place], [place] and [place]. This disclosure is being madepursuant to the Care Everywhere program and may not contain all information available regarding this patient. Last updated 18.[facility] Allergies Active Allergy Reactions Criticality Noted Date [...] TESTING 1980 MAMMOGRAM 1980 PAP SMEAR 1980 HIV SCREENING 1995 HEPATITIS C SCREENING 04/15/1998 DTAP/TDAP/TD VACCINES (1 - Tdap) 1999 HEPATITIS B VACCINE (1 of 3 - 19+ 3-dose series) 1999 PNEUMOCOCCAL VACCINE (1 of 2 - PCV) 1999 COVID-19 VACCINE ( - 2023-2 5 season) 2024 INFLUENZA VACCINE (#1) 2024 DEPRESSION SCREENING 06/10/2024 ZOSTER VACCINE (1 of 2) 2030 HIB VACCINE Aged Out No longer eligi ble based on patient's age to complete this topic HPV VACCINE Aged Out No longer eligi ble based on patient's age to complete this topic MENINGOCOCCAL (Group B) VACCINE Aged Out No longer eligible based on patient's age to complete this topic MENINGOCOCCAL VACCINE Aged Out No myriam irasema eligible based on patient's age to complete this topic
--- OUTSIDE RECORDS SUMMARY | 2024-08-03 17:56 | XMS_ITS ---
Author Organization [facility] Address [address] [place], [place] [id number] Care Team Providers Care Emergency Room Tech Name Role Phone ALLENAntionette KALPESH Unavailable [phone] Pao Wheeler Unavailable Unavailable Allergies Allergen (clinical [...] Location Date Provider Diagnosis [facility] [place] [address] [place], [place] [id number] 04/20/2024 KALPESH CAO Tinea pedis B35.3 ; [...] erythematous, pruritic, scales or erosions between toes. Joes-type tinea pedis affects the soles and medial [...] erythematous, pruritic, scales or erosions between toes. Joes-type tinea pedis affects the soles and medial [...] great toe joint pain Progress Notes * PAYTON YAPMAAMEDOB:1980 ( 44 yo F)Acc No.[id number]:04/20/2024 Progress Notes Patient: FRANCISCO MILES Provider: Teddy Cao DPM :1980 A ge:44 Y S ex:Female Date:04/20/2024 Address:[address] [place] [address] Subjective: * Chief Complaints: * 1 . The patient has multiple foot issues, all [...] a history of fallen arches. * HPI: H PI: New Complaint Samantha parks presents for a new patient consultation. Samantha kasey complains of an issue to right foot pain. Patient states her #4 digit has been bothering her, and she had a blister on that toe recently. Patient also has pain on the medial side of her foot, near #1 digit. Patient states her primary doctor thought she may have arthritis in this foot. Patient denies any injury., MA: LB. * ROS: G eneral / Constitutional: Patient denies c hills, fever, weakness, night sweats. M usculoskeletal: Patient denies c hildhood foot problems, weakness. P atient complains of j oint pain, fallen arches. P eripheral Vascular: Patient denies u lceration of feet, cold extremities. ? S kin: Patient denies u lcerations, discoloration. P atient complains of s caling, peeling, blisters. N eurologic: Patient denies b alance difficulty, confusion, difficulty speaking, dizziness. * Medical History: A david reflux, Fibromyalgia, Asthma/Bronchitis, Leg/Feet cramps, Restless leg syndrome. * Family History: M other: PRN - Mother: . B rother: SIB - Brother: . * Social History: M igrated Social History: M igrated Social History: Smoking Status : Former smoker , History of tobacco use :. * Allergies: I odine. Objective: * Vitals: * Examination: C onstitutional: Constitutional T he patient is awake, alert, well developed, well groomed and well nourished. D ermatologic: Skin findings: S kin is warm, dry, supple with no breaks in the skin. Right foot: T here is scaling in a moccasin distribution. Old deroofed interdigital bullae. V ascular: Dorsalis pedis pulse: 2 /4, bilateral. Posterior tibial pulse: 2 /4, bilateral. Capillary refill: l ess than 3 seconds. Edema: N o edema, bilateral. N eurologic: Gross sensation G ross sensation is intact to light touch.? M usculoskeletal: Muscle Strength M uscle strength is 5/5 in regards to dorsiflexion, plantarflexion, inversion, and eversion in bilateral lower extremities. Hallux Abducto Valgus t he right hallux has elevation of the 1st metatarsal. There is decreased ROM of the 1st MPJ with forefoot loading. Foot Structure T he foot structure is noted to be, planus, bilaterally, There is calcaneus valgus noted, bilaterally. Assessment: * Assessment: 1. T inea pedis - B35.3 (Primary) 2 . H allux rigidus, right foot - M20.21? 3. 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 H allux rigidus, right foot Notes: Hallux Limitus: Discussed various treatments with [...] use and effect. All questions were answered. * Follow Up: 2 Weeks (Reason: See how topical helped tinea pedis. See how shoes and Powersteps helped great toe joint pain) * Billing Information: * Visit Code: 50859 Office Visit, Est Pt., Level 3. * Procedure Codes: * Electronic signature of KALPESH CAO DPM on 08/03/2024 at 05:56 PM HOG SLAUGHTERER Sign off status: Pending * Provider: Teddy Cao DPM Date: 1 06/20/2023 Generated for Krystyna castellon/Wilner/Maral on: 0 08/03/2024 05:56 PM HOG SLAUGHTERER History and Physical Notes * HPI (History [...]
--- OUTSIDE RECORDS SUMMARY | 2024-08-03 17:56 | XMS_ITS | Patient Health Summary ---
Author Organization [facility] Address [facility] [place] [address] Care Team Providers Care Med Dir Name Role Phone Unavailable Primary Care Provider Unavailabl e Note from [facility],non-owned Affiliates and Associated Physician Practices is amultiple site organization consisting of ambulatory clinics and hospital sitesin [place], [place], [place] and [place]. This disclosure is being madepursuant to the Care Everywhere program and may not contain all information available regarding this patient. Last updated 18.[facility] Allergies * Etodolac(Unknown) -High Criticality Medications Be [...] 10,000 CFU/ML of Normal Urogenital/ Skin Elba [facility] Comment:. Culture Urine REBEKAH ALBICANS(A) [facility] Comment:Numeric Value - 300 CFU/ML Rebekah Albicans Urine specimen (specimen) URINE SPECIMEN OBTAINED BY CLEAN CATCH PROCEDURE / Unknown 11/02/2013 1:00 AM CDT 11/02/2013 8:44 AM CDT Narrative [facility] - 11/04/2013 4:33 PM CDT AndersonSpecimen#[id number] Cameron Loc/Rm/Bed: LDR/105/00 CLN CATCH U Historical Provider LAB - MICROBIOLOG Y ORDERABLES [address] [phone] * URINALYSIS OBSTETRICS - POINT OF CARE (01/19/2009 1:00 PM CDT) Glucose UA negative Negative [facility] Bilirubin UA negative Negative [facility] Ketone UA negative Negative [facility] Specific [place] UA POCT 1.025 1.000 - 1.030 [facility] [...] POINT OF CARE ORDERABLES Performing Organization Address City/[facility] Co de Phone Number [facility] [phone] [place] [address] * KETO DIASTIX - POINT OF CARE (01/05/2009 10:30 AM CDT) Only the most recent of3 resultswithin the time period is included. Pathologist [facility] Ketone UA Not Detected Not Detected mg/dl [facility] Glucose UA Not Detected Not Detected mg/dl [facility] Comment Glucose UA: This test was performed by Women's Services Staff [facility] URINE / Unknown 01/05/2009 1 0:30 AM CDT Only Default LAB - POINT OF CARE ORDERABLES Performing Organization Address [facility] Co de Phone Number [facility] [address] [place] [address] * URINALYSIS - POINT OF CARE (01/05/2009 10:30 AM CDT) Only the most recent of3 resultswithin the time period is included. Leukocyte UA Not Detected Not Detected /ul [facility] Protein UA Not Detected Not Detected mg/dl [facility] Glucose UA Not Detected Not Detected mg/dl [facility] Blood UA Not Detected Not Detected /ul [facility] Nitrite UA Not Detected Not Detected [facility] Comment Test performed by [facility] Women's Services Staff. [facility] URINE / Unknown 01/05/2009 1 0:30 AM CDT Only Default LAB - POINT OF CARE ORDERABLES Performing Organization Address City/State/[facility] Co de Phone Number [facility] [address] [place] [address]
--- OUTSIDE RECORDS SUMMARY | 2024-08-03 17:56 | XMS_ITS | Referral Summary ---
Author Organization [facility] Address [address] [facility] [place] [address] Care Team Providers Care Confectionery Laboratory Manager Name Role Phone Unavailable Primary Care Provider Unavailabl e Source Comments [facility],non-owned Affiliates and Associated Physician Practices is amultiple site organization consisting of ambulatory clinics and hospital sitesin [place], [place], [place] and [place]. This disclosure is being madepursuant to the Care Everywhere program and may not contain all information available regarding this patient. Last updated 18.[facility] Allergies Active Allergy Reactions Criticality Noted Date [...]
--- OUTSIDE RECORDS SUMMARY | 2024-08-03 17:56 | XMS_ITS | Clinical Summary ---
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 Gender Identity Not on file Sexual Orientation Not on file Plan of Treatment Health Maintenance Due Date Last Done Comments Hepatitis C Virus (HCV) Screening 1980 TdaP Immunization 1980 Hepatitis B Immunization (1 of 3 - 19+ 3-dose series) 1999 Pap Smear 2001 Cervical Cancer Screening (CCS) 2010 HPV/Cotest 2010 Discussion re Starting/Frequency of Mammograms 2020 Influenza Immunization (#1) 2024 02/27/2017 SARS-COV-2 Immunization ( season) 2024 08/30/2020, 08/02/2020 Respiratory Syncytial Virus (RSV) Immunization (Adult) (1 - 1-dose 75+ series) 2055 Meningococcal Immunization (ACWY) Aged Out No longer eligible b ased on patient's age to complete this topic Pneumococcal Immunization Combined Aged Out No longer eligible b ased on patient's age to complete this topic Rotavirus Immunization Aged Out No lo nger eligible based on patient's age to complete this topic
--- OUTSIDE RECORDS SUMMARY | 2024-08-03 17:56 | XMS_ITS | Patient Health Record ---
Author Organization [facility] Address [address] [facility] [address] [place], [place] [id number] Care Team Providers Care Appellate Conferee Name Role Phone KALPESH DELUNA Unavailable [phone] Pao Wheeler Unavailable Unavailable Allergies Allergen (clinical [...] Location Date Provider Diagnosis [facility] [place] [address] [place] [id number] 04/20/2024 KALPESH ALLENK Tinea pedis B35.3 ; Hallux rigidus, right foot M20.21 ; Primary osteoarthritis, right ankle and foot M19.071 and Pain in right foot M79.671 [facility] [place] [address] [place] [id number] 05/04/2024 KALPESH SNLYDIAK Tinea pedis B35.3 ; Hallux rigidus, right [...] erythematous, pruritic, scales or erosions between toes. New Era-type tinea pedis affects the soles and medial [...] Insured Coverage Start Date Coverage End Date [facility] [address] [address] [place] [address] [id number] FRANCISCO YAP Self - patient is the insured Medical (General) History Medical History History ICD Code acid reflux fibromyalgia Asthma/Bronchitis Leg/Feet cramps restless leg syndrome
--- OUTSIDE RECORDS SUMMARY | 2024-08-03 17:56 | XMS_ITS ---
Author Organization [facility] Address [address] [place], [place] [id number] Care Team Providers Care Roller Helper Name Role Phone ALLENAntionette KALPESH Unavailable [phone] Pao Wheeler Unavailable Unavailable Allergies Allergen (clinical [...] Location Date Provider Diagnosis [facility] [place] [address] [place], [place] [phone] 05/04/2024 KALPESH CAO Tinea pedis B35.3 ; [...] Follow Up: prn, Reason: Progress Notes * PAYTON YAPMAAMEDOB:1980 ( 44 yo F)Acc No.[id number]:05/04/2024 Patient: FRANCISCO MILES Provider: Teddy Cao DPM :1980 A ge:44 Y S ex:Female Date:05/04/2024 Address:[address] [place] [address] Subjective: * Chief Complaints: * T he patient is very happy with how well [...] do this all at once * HPI: H PI: Follow Up Visit P atient presents for follow-up visit for Powerstep inserts and topical medication. Patient states topical has been helping and she is no longer experiencing pain. Patient states she has not had a chance to wear Powerstep inserts yet. , MA: LB. * ROS: G eneral / [...] confusion, difficulty speaking, dizziness. * Medical History: * Surgical History: * Hospitalization/Major Diagno stic Procedure: * Family History: M other: PRN - Mother: . B rother: SIB - Brother: . * Social History: M igrated Social History: M igrated Social History: Smoking Status : Former smoker , History of tobacco use :. * Medications: T akingClotrimazole-Betamethasone 1-0.05 % Cream 1 application Externally Twice a day , Notes to Pharmacist: one tube, 30g or similarMedication List reviewed and reconciled with the patientTaking Clotrimazole-Betamethasone 1-0.05 % Cream 1 application Externally Twice a day , Notes to Pharmacist: one tube, 30g or similarMedication List reviewed and reconciled with the patient * Allergies: I maurilio[Allergies Verified] Objective: * Vitals: * Examination: C onstitutional: Constitutional T he patient is awake, alert, well developed, well groomed and well nourished. D ermatologic: Skin findings: S kin is warm, dry, supple with no breaks in the skin. Right foot: the scaling, fissuring, and breaks in the skin has resolved. V ascular: Dorsalis pedis pulse: 2 /4, [...] obtain supportive shoes and wear her inserts * Procedure Codes: * Follow Up: p rn * Billing Information: * Visit Code: 03328 Office Visit, Est Pt., Level 3. * Procedure Codes: * E COACH Sign off status: Completed true * Provider: Teddy Cao DPM Date: 07/04/2023 Generated for Krystyna castellon/Wilner/Maral on: 0 08/03/2024 05:56 PM AGILE COACH History and Physical Notes * HPI (History [...]
== END 2024-08-03 15:19 | disposition home or self-care (01) ==
LOC: ANHSURGERY 15:22
PROVIDERS: PCP Physician Assistant; Visit Provider Student in an Organized Health Care Education/Training Program
DX: N93.9 Abnormal uterine and vaginal bleeding, unspecified (principal)
CPT/HCPCS: 36415; 86850; 86900; 86901

== ENCOUNTER 2024-08-06 01:51 | Day surgery (SDC) | payer OTHER, MEDICAID, SELFPAY ==
[2024-07-29 15:55] VITALS: BMI 37.8
--- NOTE | 2024-07-29 16:02 | SUR.PREOP ---
Report to the Outpatient Waiting Room, entrance under the green pavilion located off [facility], at time 1000 on date 08/06/24. Planned Procedure Time: 1200.? Time changes happen often and if your time is changed the preop area will call you the afternoon before. - You and your visitor will be asked to self-screen and do not enter if you have any COVID symptoms. Please call surgeon if you need to reschedule. - A mask is optional within the hospital at this time. Patients may have clear liquids (water, carbonated beverages, clear teas, apple juice) until 3 hours prior to surgery with a maximum of 20 ounces. - No food from midnight until time of surgery and no smoking, or chewing tobacco (or any form of nicotine). No chewing gum, candy or mints. - Infants may have breast milk until 4 hours before surgery, formula 6 hours prior to surgery. - Children will be allowed to drink immediately following surgery.? If applicable, please bring a bottle or sippy cup to assist with drinking. Juice, water, soda, and popsicles are readily available.? For infants on formula, please bring formula the day of surgery.? Pacifiers are allowed. Take only the following medications with a SIP of water on the morning of surgery: ____n/a DO NOT STOP ANY OF YOUR OTHER PRESCRIPTION MEDICATIONS PRIOR TO SURGERY EXCEPT THE FOLLOWING Hold all vitamins and supplements for 3 days per anesthesiologist. Medications to discontinue per physician n/a Date to take last dose Please no make-up, nail upper sorbian, hairspray, perfume, deodorant, or body powder the day of surgery.? No jewelry (including any body piercings) or valuables the day of surgery, leave them at home.? Please take a shower or bath the night before, or the morning of, surgery with an antibacterial soap.? Wear comfortable, loose fitting clothing.? Children are encouraged to wear pajamas. - Jewelry must be removed prior to entering the operating room.? Rings and piercings that are not removed may be cut off. - The hospital will not accept responsibility for valuables.? - Please leave all valuables, including medications, at home the day of surgery. If you are going home after surgery, a licensed guard driver must drive you home.? - NO public transportation without another adult if you receive anesthesia. - We recommend that an adult stay with you for 24 hours following discharge. - We also recommend that you do not drive, make important decision, drink alcoholic beverages, or take any drugs that were not prescribed by your health care provider for at least 24 hours after your discharge time. For Pediatric surgeries, we recommend two adults accompany the child home. Follow any additional instructions given to you from your surgeon. Telephone instructions given to _patient__and asked if any additional questions and then verbalized understanding. Patient advised to call surgeon office or pre surgery nurse liaison [phone] if any additional questions.
[2024-08-06] VITALS (13 sets, daily range): BP systolic 106–157; BP diastolic 75–96; PULSE 66–87; RESP 10–19; TEMP 36.3–37.1; O2SAT 93–100
--- OUTSIDE RECORDS SUMMARY | 2024-08-06 01:55 | XMS_ITS | Clinical Summary ---
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
--- OUTSIDE RECORDS SUMMARY | 2024-08-06 01:55 | XMS_ITS | Continuity of Care Document ---
Author Organization [facility] Address [address] [place] [address] Care Team Providers Care Pie Topper Name Role Phone ALESSIA LAYLA Primary Care Provider [phone] Assessment Encounter Date Assessment Date Assessment LastModified by Organization Details LastModified Time 08/05/2024 08/05/2024 Pt has total hysterectomy scheduled with Dr. Zamorano at [facility] 08/05/24. [email or web address] Not available 08/05/2024 14:59:12 Plan of Treatment Reminders Order Date Submit Date Provider Last Modified By Organization Details Last Modified Time Details Appointments None recorded. Lab CMP, serum or plasma 2024 025 YUSRA Labzayrp, [address], [address], [place], [address], 5 08:40:45 lipid panel, serum or plasma 2024 025 YUSRA Labtan, 2022 [address], [address], [place], [address], 5 08:40:46 CBC w/ auto diff 2024 025 YUSRA Labcodenys, 2022 [address], [address], [place], [address], 5 08:40:45 TSH + free T4, serum 2024 025 YUSRA Warner, 2022 [address], [address], [place], [address], 08:40:44 HbA1c (hemoglobin A1c), blood 2024 025 [facility], 2022 Guilla[address] Rubio, [address], [address], 08:40:45 Referral None recorded. Procedures None recorded. Surgeries None recorded. Imaging None recorded. Medication Orders albuterol sulfate 2.5 mg/3 mL (0.083 %) solution for nebulizatio n 2024 [facility] #[id number], [address] [place], [address], 5 08:33:54 albuterol sulfate HFA 90 mcg/actuati on aerosol inhaler 2024 025 [id number] [address] [place], [address], 5 08:33:54 beclomethas one diprop 40 mcg/actuati on HFA breath activated aerosol 2024 025 [id number] [address] [place], [address], 08:48:47 Patient TargetsNo targets recorded. Patient Instructions Encounter Date Encounter Id Patient Instructions Last Modified By Organization Details Last Modified Time 08/05/2024 [id number] A healthy lifestyle: care instructions [email or web address] Not available 08/05/2024 08:40:39 Quitting Tobacco : Care Instructions [email or web address] Not available 08/05/2024 08:40:11 Reason for Referral None Reported. Problems Name Problem SNOMED Code Status Onset Date Resolution Date Notes Provider Name and Address Organization Details Recorded Time Anemia 220123184 Active SIGRID Constantino, [place] - [facility] 5 10:50:39 Fibromyalgia 697900091 Active 2022 SIGRID [place], [place] - [facility] 3 15:21:52 Mild intermittent asthma 870397730 Active 2022 QUINTEN ALEXANDER Attn: Patric g,[address], [place], [address], [place] [facility] 3 12:38:16 Vitamin D deficiency 03804218 Active 2022 QUINTEN ALEXANDER Attn: Patric g,[address], [place], [address], [place] [facility] 3 12:38:21 Smoker 36214066 Active 2022 QUINTEN ALEXANDER Attn: Accountvanessa g,[address], [place], [address], [place] [facility] 3 12:38:19 Obesity 919093989 Active 2022 QUINTEN ALEXANDER Attn: Patric g,[address], [place], [address], [place] [facility] 3 12:38:18 Diverticulitis of sigmoid colon 466649971 Active 2023 QUINTEN ALEXANDER Attn: Patric g,[address] [facility], [place], [address], [place] [facility] 4 17:13:57 Notes:Some problems listed i n Document: #[id number] could not be added to this patient's chart. Please review this document and add these problems to the patient's chart manually as needed. Problem Notes None recorded. Procedures Surgical History Date Name Laterality Status Provider Name and Address Organization Details Recorded Time 4 Skin Tag Removal completed QUINTEN ALEXANDER Attn: Accounting,[address] [facility], [place], [address], [place] [facility] 01/03/2024 17:06:14 7 endometrial ablation completed QUINTEN ALEXANDER Attn: Accounting,[address] [facility], [place], [address], [place] [facility] 03/12/2023 15:34:16 4 section completed QUINTEN ALEXANDER Attn: Accounting,[address] [facility], [place], [address], [facility] 01/03/2024 16:49:30 4 ligation of fallopian tube completed QUINTEN ALEXANDER Attn: Accounting,[address], [place], [address], [facility] 01/03/2024 16:49:55 9 Caesarean Section completed wEa Esqueda MA [facility] 08/04/2014 10:50:39 0 Caesarean Section completed Ewa Esqueda MA [facility] 08/04/2014 10:50:39 Imaging Results None recorded. Procedure Notes None recorded. Medical Equipment None Reported. Allergies Allergen ID Allergen Name Allergen Category Reaction Reaction Severity Criticality Documentation Date Start Date Code Code System Note Provider Name and Address Organization Details Recorded Time 14086 Lodine medicatio n other severe Not available 08/04/2014 8 RxNorm Not Available Not Available Not Available Medications Name Sig Start Date Stop Date Status Note LastModified by Organization Details LastModified Time selenium sulfide 2.5 % lotn 06/17 completed [...] Available Not Available Not Available cyclobenzap rine 10 mg tablet TAKE 1 TABLET BY MOUTH TWICE DAILY NEEDED FOR MUSCLE SPASM active Not Available Not Available No t Available nicotine 14 mg/24 hr daily transdermal patch Apply 1 patch every day by transderm al route as directed for 30 days, for smoking cessation . active Not Available Not Available No t Available tizanidine 2 mg tablet Take 1 tablet every 6-8 hours by oral route as needed for 14 days, for muscle spasm. 08/05 completed Not Available Not Available Not Available albuterol sulfate 2.5 mg/3 mL (0.083 %) solution for nebulizatio n Inhale 3 mL 3 times a day by nebulizat ion route as needed for 30 days, for asthma. 2024 active Not Available Not Available Not Avai lable azithromyci n 250 mg tablet TAKE 2 TABLETS BY MOUTH ON DAY 1, AND THEN TAKE 1 TABLET BY MOUTH ONCE A DAY ON DAY 2 THROUGH DAY 5 08/05 completed Not Available Not Available Not Available ibuprofen 800 mg tablet TAKE 1 TABLET BY MOUTH THREE TIMES DAILY WITH MEALS FOR BACK PAIN FOR 14 DAYS active Not Available Not Available No t Available fluconazole 150 mg tablet TAKE 1 TABLET BY MOUTH EVERY 72 HOURS A ONE TIME DOSE 08/05 completed Not Available Not Available Not Available Keflex 500 mg capsule Take 1 [...] AIR DRY AND SHAMPOO AFTER 8-12 HRS 08/05 completed Not Available Not Available Not Available benzonatate 100 mg capsule TAKE 1 CAPSULE BY MOUTH TWICE DAILY NEEDED FOR COUGH 08/05 completed Not Available Not Available Not Available hydrocodone 7.5 mg-acetamin ophen 325 mg [...] Not Available Not Available No t Available prednisone 50 mg tablet TAKE 1 TABLET BY MOUTH ONCE DAILY 08/05 completed Not Available Not Available Not Available fluticasone propionate 44 mcg/actuati on HFA aerosol inhaler Inhale by inhalatio n route for 30 days. 12/05 completed Not Available Not Available Not Available albuterol sulfate HFA 90 mcg/actuati on aerosol inhaler INHALE 2 PUFFS BY MOUTH EVERY 4-6 HOURS NEEDED 2024 active Not Available Not Available Not Avai [...] MOUTH EVERY 12 HOURS FOR 7 DAYS 08/05 completed Not Available Not Available Not Available cyclobenzap rine 5 mg tablet TAKE 1 TABLET BY MOUTH TWICE DAILY FOR 14 DAYS NEEDED FOR BACK SPASM 08/05 completed Not Available Not Available Not Available potassium chloride ER 20 mEq tablet,exte nded release 11/16 completed Not Available Not Available Not Available beclomethas one diprop 40 mcg/actuati on HFA breath activated aerosol Inhale 2 puffs twice a day by inhalatio n route as directed for 90 days, for asthma. 2024 active Not Available Not Available Not Avai lable Vitals Date Recorded Body height Body mass index (BMI) Body weight Oxygen saturation Oxygen saturation in Arterial blood by Pulse oximetry Heart rate Respiratory rate Systolic blood pressure Diastolic blood pressure Provider Name and Address Organization Details Last Updated DateTime 5 154.94 cm 38.8 kg/m2 80476.2 4 g 97 % 97 % 77 /min 16 /min 134 mm[Hg] 88 mm[Hg] Priya Griffiths [place] - [facility] 5 08:25:20 Social History Question Answer Notes LastModified by Organizat ion Details LastModified Time Tobacco Smoking Status Current Every Day Smoker Ewa Esqueda [place] null, [place] - [facility] 08/04/2014 10:50:39 What Is Your Level Of Alcohol Consumption? Occasional [email or web address] Information not available 03/12/2023 What Is Your Level Of Caffeine Consumption? Occasional [email or web address] Information not available 08/04/2014 What Type Of Diet Are You Following? REGULAR [email or web address] Information not available 08/04/2014 Education 12 [email or web address] Information no t available 08/04/2014 What Was The Date Of Your Most Recent Tobacco Screening? 08/05/2024 [email or web address] Information not available 08/05/2024 Seat Belts Used Routinely Yes [email or web address] Information not available 08/04/2014 How Much Tobacco Do You Smoke? 0.5 PPD [email or web address] Information not available 08/04/2014 Has Tobacco Cessation Counseling Been Provided? Yes [email or web address] Information not available 03/12/2023 On What Date Was Tobacco Cessation Counseling Provided? 08/05/2024 [email or web address] Information not available 08/05/2024 How Many Years Have You Smoked Tobacco? 16 [email or web address] Information not available 08/04/2014 Sex: Unknown Functional Status None recorded. Mental Status None recorded. Family History Relationship Description Onset Age of this Age Resolved Age Notes LastModified by Organization Details LastModified Time Mother Hypertensive disorder [email or web address] Not available 2014 10:26:18 Mother Diabetes mellitus [email or web address] Not available 2014 10:26:18 Mother Kidney disease [email or web address] Not available 2014 10:26:18 Medical History Condition Response Heart Problems N Other N Breast Cancer N Thyroid Problems N Kidney or Bladder Problems N Lung Disease N Depression N GI Problems N Acne N Breast Problem N Eating Disorder N Anemia Y Anesthesia Complications N Headaches/Migraines Y Ovarian Cancer N Diabetes N Anxiety Disorder N Blood Transfusions N Arthritis N Polyps [...] SNOMED-CT Code Diagnosis ICD10 Code Diagnosis Note [id number] QUINTEN ALEXANDER [facility] [address] [place] [address] 08/05/2024 08:22:32 08/05/2024 08:41:52 Mild intermittent asthma 111443410 J45.20 08/05/24: has not been using Qvar, couldn't avoid itsent new script and neb solution 12/06/23: insurance will not cover flovent, will trial Qvar redihaler 11/13/23:molly t to ED 1 wk ago due to SOB, no improvemen t with albuterolb reathing treatment, CXR nl, finished prednisone and augmentin w/ improvemen tPEx- nltrial ICSf/u in 1 mo Smoker 84745626 F17.200 1/2 ppd, cutting back on her ownfor 30 yrsno relief with nicotine patches Obesity 146450675 E66.9 BMI 38.8discus sed increasing exercise and healthier food options, high protein, low fat diet Depression screening 171 482317 Z13.31 PHQ 3 Health Concerns Section Related Observation LastModified by Organization Detai ls LastModified Time None Recorded Concern Status LastModified by Organization Details LastModified Time None Recorded Payers Encounter Date Sequence Insurance Name Policy Number Policy Karimi Covered Member ID Karimi Member ID Guarantor Name 08/05/2024 1 [facility] [id number] [facility] [id number] [facility] 08/05/2024 2 [place] [facility] [id number] [facility] Notes Date Note Type Note Provider Name and Address Organization Details Recorded Time 08/05/2024 text/html Pt presents for ED and asthma f/u. Reports that she went to ED 06/2024, diagnosed with bronchitis, treated for pneumonia since she was exposed. She was given amoxicillin, Z dominga, tessalon perles and prednisone with mild improvement. Endorses that she still has a cough, but it is improving. Requesting refills of albuterol and neb solution. QUINTEN ALEXANDER Attn: Accounting,[address] [place], [address], [place] [facility] 08/05/2024 14:59:33 OBGyn Episode No OBEpisode recorded.
--- OUTSIDE RECORDS SUMMARY | 2024-08-06 01:56 | XMS_ITS | Patient Health Record ---
Author Organization [facility] Address [address] [facility] [address] [place], [place] [address] Care Team Providers Care Traffic Reporter Name Role Phone KALPESH DELUNA Unavailable [phone] Pao Wheeler Unavailable Unavailable Allergies Allergen (clinical [...] Location Date Provider Diagnosis [facility] [place] [address] [place] [id number] 04/20/2024 KALPESH ALLENK Tinea pedis B35.3 ; Hallux rigidus, right foot M20.21 ; Primary osteoarthritis, right ankle and foot M19.071 and Pain in right foot M79.671 [facility] [place] [address] [place] [id number] 05/04/2024 KALPESH SNLYDIAK Tinea pedis B35.3 ; [...] erythematous, pruritic, scales or erosions between toes. [place]-type tinea pedis affects the soles and medial [...] Insured Coverage Start Date Coverage End Date [facility] [address] [address] [place] [address] [id number] FRANCISCO YAP Self - patient is the insured Medical (General) History Medical History History ICD Code acid reflux fibromyalgia Asthma/Bronchitis Leg/Feet cramps restless leg syndrome
--- OUTSIDE RECORDS SUMMARY | 2024-08-06 01:56 | XMS_ITS ---
Author Organization [facility] Address [address] [place], [place] [id number] Care Team Providers Care Atmospheric Scientist Name Role Phone ALLENAntionette KALPESH Unavailable [phone] Pao Wheeler Unavailable Unavailable Allergies Allergen (clinical [...] Location Date Provider Diagnosis [facility] [place] [address] [place], [place] [id number] 04/20/2024 KALPESH CAO Tinea pedis B35.3 ; [...] erythematous, pruritic, scales or erosions between toes. [place]-type tinea pedis affects the soles and medial [...] erythematous, pruritic, scales or erosions between toes. [place]-type tinea pedis affects the soles and medial [...] * PAYTON YAPMAAMEDOB:1980 ( 44 yo F)Acc No.[id number]:04/20/2024 Progress Notes Patient: FRANCISCO MILES Provider: Teddy Cao DPM :1980 A ge:44 Y S ex:Female Date:04/20/2024 Address:[address] [place] [address] Subjective: * Chief Complaints: * 1 . [...] pain) * Billing Information: * Visit Code: 74268 Office Visit, Est Pt., Level 3. * Procedure Codes: * Electronic signature of KALPESH CAO DPM on 08/06/2024 at 01:55 AM INTERNET SPECIALIST Sign off status: Pending * Provider: Teddy Cao DPM Date: 1 06/20/2023 Generated for Krystyna castellon/Wilner/Maral on: 0 08/06/2024 01:55 AM INTERNET SPECIALIST History and Physical Notes * HPI (History [...]
--- OUTSIDE RECORDS SUMMARY | 2024-08-06 01:56 | XMS_ITS | Clinical Summary ---
Author Organization [facility] Address [facility] [place] [address] Care Team Providers Care Chemist Internship Name Role Phone Mimi Carrillo MD Primary Care Provider [phone] Allergies Active Allergy Reactions Criticality Noted Date Comments Etodolac Unknown High 01/12/2009 Causes dehydration Medications albuterol sulfate HFA (VENTOLIN HFA) 108 (90 Base) MCG/ACT inhaler 12/17/2016 Act lula vitamin D2, ergocalciferol, 29831 UNITS capsuleIndicatio ns:Low vitamin D level Take [...] 08/29/2015 Breast pain 02/10/2015 Cough variant asthma ([facility]) 12/23/2014 Piriformis syndrome 12/23/2014 Allergic rhinitis 09/21/2014 Seborrheic dermatitis 09/21/2014 Carpal tunnel syndrome 04/09/2014 IBS (irritable bowel syndrome) 02/18/2014 Fibromyalgia 02/18/2014 Obesity affecting , antepartum ([facility] ) 01/18/2009 Overview (07/24/2018): Overview: Previous delivery, antepartum condition or complication ([facility]) 01/18/2009 Resolved Problems Problem Noted Date Diagnosed Date Resolved Date Nausea 10/10/2017 09/17/2018 Cough 02/27/2017 09/17/2018 Flu-like symptoms 02/27/2017 09/17/2018 Flu vaccine need 03/12/2016 02/19/2020 Encounter for preventive health examination 02/15/2014 02/19/2020 Normal ([facility]) 06/08/2013 0 09/17/2018 with poor obstetri c history ([facility]) 01/18/2009 09/17/2018 Overview (07/24/2018): Overview: IMO [...] on file Legal Sex Female 2:59 PM RN CHRONIC Gender Identity Not on file Sexual Orientation [...] this topic Insurance [facility] Care Teams Chemist Internship Relationship Specialty Start Date End Date Mimi Carrillo MD [address] [place] [address] PCP - General FAMILY PRACTICE 07/24/18
--- OUTSIDE RECORDS SUMMARY | 2024-08-06 01:56 | XMS_ITS | Referral Summary ---
Author Organization [facility] Address [address] [facility] [place] [address] Care Team Providers Care Tank Cooper Name Role Phone Unavailable Primary Care Provider Unavailabl e Source Comments [facility],non-owned Affiliates and Associated Physician Practices is amultiple site organization consisting of ambulatory clinics and hospital sitesin [place], [place], [place] and [place]. This disclosure is being madepursuant to the Care Everywhere program and may not contain all information available regarding this patient. Last updated 18.[facility] Allergies Active Allergy Reactions Criticality Noted Date [...]
--- OUTSIDE RECORDS SUMMARY | 2024-08-06 01:56 | XMS_ITS | Patient Health Summary ---
Author Organization [facility] Address [facility] [facility] [place] [address] Care Team Providers Care Marine Engineering Teacher Name Role Phone Unavailable Primary Care Provider Unavailabl e Note from [facility],non-owned Affiliates and Associated Physician Practices is amultiple site organization consisting of ambulatory clinics and hospital sitesin [place], [place], [place] and [place]. This disclosure is being madepursuant to the Care Everywhere program and may not contain all information available regarding this patient. Last updated 18.[facility] Allergies * Etodolac(Unknown) -High Criticality Medications Be [...] 10,000 CFU/ML of Normal Urogenital/ Skin Elba [facility] Comment:. Culture Urine REBEKAH ALBICANS(A) [facility] Comment:Numeric Value - 300 CFU/ML Rebekah Albicans Urine specimen (specimen) URINE SPECIMEN OBTAINED BY CLEAN CATCH PROCEDURE / Unknown 11/02/2013 1:00 AM CDT 11/02/2013 8:44 AM CDT Narrative [facility] - 11/04/2013 4:33 PM CDT AndersonSpecimen#[id number] Cameron Loc/Rm/Bed: LDR/105/00 CLN CATCH U Historical Provider LAB - MICROBIOLOG Y ORDERABLES [address] [phone] * URINALYSIS OBSTETRICS - POINT OF CARE (01/19/2009 1:00 PM CDT) Glucose UA negative Negative [facility] Bilirubin UA negative Negative [facility] Ketone UA negative Negative [facility] Specific Alva UA POCT 1.025 1.000 - 1.030 [facility] [...] Performing Organization Address City/[facility] Co de Phone Number [facility] [address] [place] [address] * KETO DIASTIX - POINT OF CARE (01/05/2009 10:30 AM CDT) Only the most recent of3 resultswithin the time period is included. Pathologist [facility] Ketone UA Not Detected Not Detected mg/dl [facility] Glucose UA Not Detected Not Detected mg/dl [facility] Comment Glucose UA: This test was performed by Women's Services Staff [facility] URINE / Unknown 01/05/2009 1 0:30 AM CDT Only Default LAB - POINT OF CARE ORDERABLES Performing Organization Address [facility] Co de Phone Number [facility] [address] [place] [address] * URINALYSIS - POINT OF CARE (01/05/2009 10:30 AM CDT) Only the most recent of3 resultswithin the time period is included. Leukocyte UA Not Detected Not Detected /ul [facility] Protein UA Not Detected Not Detected mg/dl [facility] Glucose UA Not Detected Not Detected mg/dl [facility] Blood UA Not Detected Not Detected /ul [facility] Nitrite UA Not Detected Not Detected [facility] Comment Test performed by [facility] Women's Services Staff. [facility] URINE / Unknown 01/05/2009 1 0:30 AM CDT Only Default LAB - POINT OF CARE ORDERABLES Performing Organization Address City/State/[facility] Co de Phone Number [facility] [address] [place] [address]
--- OUTSIDE RECORDS SUMMARY | 2024-08-06 01:56 | XMS_ITS | Data Portability ---
Author Organization [facility] [place] Mendoza Address [address] [place] [id number] Care Team Providers Care Campus Rep Name Role Phone PAO AGGARWAL Primary Care Provider Assessment Encounter Date Assessment Date Assessment LastModified by Organization Details LastModified Time 08/05/2024 08/05/2024 Pt has total hysterectomy scheduled with Dr. Zamorano at [facility] 08/05/24. [email or web address] Not available 08/05/2024 14:59:12 Plan of Treatment Reminders Order Date Submit Date Provider Last Modified By Organization Details Last Modified Time Details Appointments None recorded. Lab CMP, serum or plasma 2024 025 YUSRA [facility], [address], [place], [address], 5 08:40:45 lipid panel, serum or plasma 2024 025 YUSRA [facility], [address], [place], [address], 5 08:40:46 CBC w/ auto diff 2024 025 YUSRA [facility], [address], [place], [address], 5 08:40:45 TSH + free T4, serum 2024 025 YUSRA [facility], [address], [place], [address], 5 08:40:44 HbA1c (hemoglobin A1c), blood 2024 025 [facility], [address], [place], [address], 5 08:40:45 surgical pathology study 2023 024 [facility], [address] [facility], [address], [place], [address], 4 14:34:14 magnesium, serum or plasma 2023 024 [facility], [address] [place] [address], [address], [place], [address], 4 10:17:09 CMP, serum or plasma 2023 024 [facility], [address] [place] [address], [address], [place], [address], 4 10:17:08 Referral community service manager referral 2023 024 [email or web address] Derrek Campbell DPM, [address], [address], [place], [address], 4 07:52:57 obstetricia n and gynecologis t referral 2023 024 Javan Zamorano, [address] [facility] [address], [address], [place], [address], 4 07:55:49 Procedures None recorded. Surgeries None recorded. Imaging MAMMO, diagnostic, bilateral 2023 024 [email or web address] [facility], [address], [place], [address], 4 07:52:52 MAMMO, screening, bilateral [address] [facility], [address], [place], [address], 4 07:56:54 US, axilla [address] (Imaging), [address], [place], [address], 4 07:56:53 Medication Orders albuterol sulfate 2.5 mg/3 mL (0.083 %) solution for nebulizatio n 2024 025 [id number], [address] [place], [address], 5 08:33:54 albuterol sulfate HFA 90 mcg/actuati on aerosol inhaler 2024 025 [facility], [address] [place], [address], 5 08:33:54 beclomethas one diprop 40 mcg/actuati on HFA breath activated aerosol 2024 025 [facility], [address] [place] [address], [address], 5 08:48:47 tizanidine 2 mg tablet 2023 025 [facility], [address] [place], [address], 5 08:30:45 nicotine 14 mg/24 hr daily transdermal patch 2023 024 [facility], [address] [place], [address], 4 16:01:57 malathion 0.5 % lotion 2023 024 [facility], [address] [place], [address], 08:30:32 beclomethas one diprop 40 mcg/actuati on HFA breath activated aerosol 2023 024 [facility], [address] [place], [address], 4 17:02:45 cyclobenzap rine 5 mg tablet 2023 024 [facility], [address] [place], [address], 08:30:23 ibuprofen 800 mg tablet 2023 024 [facility], [address] [place], [address], 17:09:49 fluticasone propionate 44 mcg/actuati on HFA aerosol inhaler 2023 024 [id number], [address] [facility], [place], [place], [id number], 17:05:10 Patient TargetsNo targets recorded. Patient Instructions Encounter Date Encounter Id Patient Instructions Last Modified By Organization Details Last Modified Time 12/06/2023 [id number] diverticulitis: care instructions [email or web address] Not available 12/10/2023 17:13:54 learning about diverticulosis and diverticulitis [email or web address] Not available 12/10/2023 17:13:53 04/08/2024 [id number] Quitting Tobacco : Care Instructions [email or web address] Not available 04/08/2024 16:01:52 08/05/2024 [id number] A healthy lifestyle: care instructions [email or web address] Not available 08/05/2024 08:40:39 Quitting Tobacco : Care Instructions [email or web address] Not available 08/05/2024 08:40:11 Reason for Referral Tableau Developer Referral for Pain in right foot Referring Physician: Pao Aggarwal, Family Medicine, Encounter Date: 04/08/2024 Residential Housekeeper And Gynecologis t Referral for Screening for malignant neoplasm of cervix Referring Physician: Pao Aggarwal, Family Medicine, Encounter Date: 04/08/2024 Results Created Date Observation Date Name Description Value Unit Range Abnormal Flag Note LastModifiedBy Organization Detail LastModifiedTime 11/13/19 24 11/15/2023 COMP. METAB OLIC PANEL (14) glucose 77 mg/dL 70-99 Not Available [facility] ([facility]) [address] [place], [address], 11/15/2023 10:17:08 11/13/19 24 11/15/2023 COMP. METAB OLIC PANEL (14) BUN 14 mg/dL 6-24 Not Available [facility] ([facility]) [address] [place], [address], 11/15/2023 10:17:08 11/13/19 24 11/15/2023 COMP. METAB OLIC PANEL (14) creatinine 1.13 mg/dL 0.57-1 .00 above high normal Not Available [facility] ([facility]) [address] [place], [address], 11/15/2023 10:17:08 11/13/19 24 11/15/2023 COMP. METAB OLIC PANEL (14) eGFR 62 mL/mi n/1.7 3 >59 Not Available [facility] ([facility]) [address] [place], [address], 11/15/2023 10:17:08 11/13/19 24 11/15/2023 COMP. METAB OLIC PANEL (14) BUN/creatini ne ratio 12 9-23 Not Available [facility] ([facility]) [address] [place], [address], 11/15/2023 10:17:08 11/13/19 24 11/15/2023 COMP. METAB OLIC PANEL (14) sodium 139 mmol/ L 134-14 4 Not Available [facility] ([facility]) [address] [place], [address], 11/15/2023 10:17:08 11/13/19 24 11/15/2023 COMP. METAB OLIC PANEL (14) potassium 4.3 mmol/ L 3.5-5. 2 Not Available [facility] ([facility]) [address] [place], [address], 11/15/2023 10:17:08 11/13/19 24 11/15/2023 COMP. METAB OLIC PANEL (14) chloride 101 mmol/ L 96-106 Not Available [facility] ([facility]) [address] [place], [address], 11/15/2023 10:17:08 11/13/19 24 11/15/2023 COMP. METAB OLIC PANEL (14) carbon dioxide, total 22 mmol/ L 20-29 Not Available [facility] ([facility]) [address] [place], [address], 11/15/2023 10:17:08 11/13/19 24 11/15/2023 COMP. METAB OLIC PANEL (14) calcium 8.9 mg/dL 8.7-10 .2 Not Available [facility] ([facility]) [address] [place], [address], 11/15/2023 10:17:08 11/13/19 24 11/15/2023 COMP. METAB OLIC PANEL (14) protein, total 6.6 g/dL 6.0-8. 5 Not Available [facility] ([facility]) [address] [place], [address], 11/15/2023 10:17:08 11/13/19 24 11/15/2023 COMP. METAB OLIC PANEL (14) albumin 3.9 g/dL 3.9-4. 9 Not Available [facility] ([facility]) [address] [place], [address], 11/15/2023 10:17:08 11/13/19 24 11/15/2023 COMP. METAB OLIC PANEL (14) globulin, total 2.7 g/dL 1.5-4. 5 Not Available [facility] ([facility]) [address] [facility], [place], [address], 11/15/2023 10:17:08 11/13/19 24 11/15/2023 COMP. METAB OLIC PANEL (14) A/G ratio 1.4 1.2-2. 2 Not Available [facility] ([facility]) [address] [facility], [place], [address], 11/15/2023 10:17:08 11/13/19 24 11/15/2023 COMP. METAB OLIC PANEL (14) bilirubin, total <0.2 mg/dL 0.0-1. 2 Not Available [facility] ([facility]) [address] [facility], [place], [address], 11/15/2023 10:17:08 11/13/19 24 11/15/2023 COMP. METAB OLIC PANEL (14) alkaline phosphatase 86 IU/L 44-121 Not Available [facility]) [address] [facility], [place], [address], 11/15/2023 10:17:08 11/13/19 24 11/15/2023 COMP. METAB OLIC PANEL (14) AST (SGOT) 14 IU/L 0-40 Not Available [facility] ([facility]) [address] [facility], [place], [address], 11/15/2023 10:17:08 11/13/19 24 11/15/2023 COMP. METAB OLIC PANEL (14) ALT (SGPT) 20 IU/L 0-32 Not Available [facility] ([facility]) [address] [facility], [place], [address], 11/15/2023 10:17:08 11/13/19 24 11/15/2023 MAGNE SIUM magnesium 2.1 mg/dL 1.6-2. 3 Not Available [facility] ([facility]) [address] [facility], [place], [address], 11/15/2023 10:17:09 01/03/20 24 01/08/2024 PATHO LOGY REPOR T . COMMALEX T Mater ial submi tted: . axill a - RIGHT AXILL A. Modif iers: right Not Available [facility] ([facility]) [address] [facility], [place], [address], 01/08/2024 14:34:14 01/03/20 24 01/08/2024 PATHO LOGY REPOR T . COMMALEX T Clini viv provi ded ICD-1 0: L91.8 Not Available [facility] ([facility]) [address] [facility], [place], [address], 01/08/2024 14:34:14 01/03/20 24 01/08/2024 PATHO LOGY REPOR T . COMMALEX T Diagn osis: FIBRO EPITH ELIAL POLYP . TMZ 01/07 0826 Local Not Available [facility] ([facility]) [address] [facility], [place], [address], 01/08/2024 14:34:14 01/03/20 24 01/08/2024 PATHO LOGY REPOR T . COMMEN T Elect ariana france d: . Donavon MD, [place] topat holog ist Not Available [facility] ([facility]) [address] [facility], [place], [address], 01/08/2024 14:34:14 01/03/20 24 01/08/2024 PATHO LOGY [...] INVOL VE THE RADHA N. THE SURGI MATI RADHA N IS INKED RED. THE SPECI MEN IS SUBMI TTED INTAC T. IT IS SUBMI TTED ENTIR MURALI IN CASSE TTE(S ) A1. THE SPEES SEN MAY FRAGM ENT DURIN G PROCE SSING . THE SPECI MEN MAY NOT SURVI VE PROCE SSING . KAYLIN/D 01/07 0826 Local Not Available [facility] ([facility]) [address] [facility], [place], [address], 01/08/2024 14:34:14 01/03/20 24 01/08/2024 PATHO LOGY REPOR T . COMMEN T Patho logis t provi ded ICD-1 0: L91.9 Not Available [facility] ([facility]) [address] [facility], [place], [address], 01/08/2024 14:34:14 01/03/20 24 01/08/2024 PATHO LOGY REPOR T . COMMEN T CPT . 95904 1 Not Available [facility] ([facility]) [address] [facility], [place], [address], 01/08/2024 14:34:14 11/07/19 24 11/06/2023 XR, chest , 2 view No observ ation record ed. [address], [place], [address], 11/12/2023 10:39:15 11/15/19 24 11/15/2023 CT, abdom en + pelvi s, w/ contr ast No observ ation record ed. [address], [place], [address], 11/15/2023 15:51:03 01/22/20 24 01/22/2024 US, axill a No observ ation record ed. [address], [place], [address], 01/22/2024 16:37:59 04/24/20 24 04/24/2024 MAMMO , diagn ostic , bilat eral No observ ation record ed. [facility] [address], [place], [address], 04/27/2024 12:11:37 05/25/20 24 05/24/2024 XR, chest , 2 view No observ ation record ed. [email or web address], [place], [address], 05/26/2024 09:16:27 06/18/19 25 06/18/2024 XR, chest , 2 view No observ ation record ed. [address], [place], [address], 07/14/2024 17:10:15 06/24/19 25 06/23/2024 imagi ng/di agnos tic resul t No observ ation record ed. [address], [place], [address], 07/22/2024 10:42:57 Result Notes None recorded. Problems Name Problem SNOMED Code Status Onset Date Resolution Date Notes Provider Name and Address Organization Details Recorded Time [facility] 020547201 Active Ewa Esqueda MA [facility], [place] - [facility] 5 10:50:39 Fibromyalgia 298668510 Active 2022 Priya Griffiths MA null, [place] - [facility] 3 15:21:52 Mild intermittent asthma 066083505 Active 2022 QUINTEN ALEXANDER Attn: Patric g,[address] [facility], [place], [address], [place] [facility] 3 12:38:16 Vitamin D deficiency 18399129 Active 2022 QUINTEN ALEXANDER Attn: Accountvanessa g,[address] [facility], [place], [address], [place] [facility] 3 12:38:21 Smoker 96349537 Active 2022 QUINTEN ALEXANDER Attn: Patric g,[address] [facility], [place], [address], [place] [facility] 3 12:38:19 Obesity 941845982 Active 2022 QUINTEN ALEXANDER Attn: Accountvanessa g,[address] [facility], [place], [address], [place] [facility] 3 12:38:18 Diverticulitis of sigmoid colon 195805059 Active 2023 QUINTEN ALEXANDER Attn: Patric g,[address] [facility], [place], [address], [place] [facility] 4 17:13:57 Notes:Some problems listed i n Document: #[id number] could not be added to this patient's chart. Please review this document and add these problems to the patient's chart manually as needed. Problem Notes None recorded. Procedures Surgical History Date Name Laterality Status Provider Name and Address Organization Details Recorded Time 4 Skin Tag Removal completed QUINTEN ALEXANDER Attn: Accounting,[address] [facility], [place], [address], [place] [facility] 01/03/2024 17:06:14 7 endometrial ablation completed QUINTEN ALEXANDER Attn: Accounting,[address] [facility], [place], [address], [place] [facility] 03/12/2023 15:34:16 4 section completed QUINTEN ALEXANDER Attn: Accounting,[address] [facility], [place], [address], [place] [facility] 01/03/2024 16:49:30 4 ligation of fallopian tube completed QUINTEN ALEXANDER Attn: Accounting,[address] [facility], [place], [address], [place] [facility] 01/03/2024 16:49:55 9 Caesarean Section completed Ewa Esqueda [place] - [facility] 08/04/2014 10:50:39 0 Caesarean Section completed Ewa Esqueda [place] - [facility] 08/04/2014 10:50:39 Imaging Results Imaging Date Name Status LastModified by Organiz ation Details LastModified Time 11/06/2023 XR, chest, 2 view completed [address], [address], 11/12/2023 10:39:15 11/15/2023 CT, abdomen + pelvis, w/ contrast completed [address], [address], 11/15/2023 15:51:03 01/22/2024 US, axilla completed [address], [address], 01/22/2024 16:37:59 04/24/2024 MAMMO, diagnostic, bilateral completed [facility] [address], [place], [address], 04/27/2024 12:11:37 05/24/2024 XR, chest, 2 view completed [address], [address], 05/26/2024 09:16:27 06/18/2024 XR, chest, 2 view [address], [place], [address], 07/14/2024 17:10:15 06/23/2024 imaging/diagno stic result completed [address], [place], [address], 07/22/2024 10:42:57 Procedure Notes None recorded. Medical Equipment None Reported. Allergies Allergen ID Allergen Name Allergen Category Reaction Reaction Severity Criticality Documentation Date Start Date Code Code System Note Provider Name and Address Organization Details Recorded Time 76645 Lodine medicatio n other severe Not available [...] Avai lable Vitals Date Recorded Body height Respiratory rate Body mass index (BMI) Body weight Oxygen saturation Oxygen saturation in Arterial blood by Pulse oximetry Heart rate Systolic blood pressure Diastolic blood pressure Provider Name and Address Organization Details Last Updated DateTime 4 154.94 cm 16 /min 36.7 kg/m2 59724.0 2 g 98 % 98 % 94 /min 115 mm[Hg] 82 mm[Hg] Priya Griffiths [place] - [facility] 4 16:51:49 Date Recorded Body height Body mass index (BMI) Body weight Oxygen saturation Oxygen saturation in Arterial blood by Pulse oximetry Heart rate Respiratory rate Systolic blood pressure Diastolic blood pressure Provider Name and Address Organization Details Last Updated DateTime 4 154.94 cm 36.7 kg/m2 28784.6 2 g 99 % 99 % 81 /min 18 /min 123 mm[Hg] 86 mm[Hg] Monserrat Mcmahon MA [facility] 4 16:39:20 Date Recorded Body height Body mass index (BMI) Body weight Oxygen saturation Oxygen saturation in Arterial blood by Pulse oximetry Heart rate Respiratory rate Systolic blood pressure Diastolic blood pressure Provider Name and Address Organization Details Last Updated DateTime 4 154.94 cm 37.1 kg/m2 67278.2 g 97 % 97 % 97 /min 16 /min 121 mm[Hg] 85 mm[Hg] Priya Griffiths MA [facility] 4 16:34:46 Date Recorded Body height Body mass index (BMI) Body weight Oxygen saturation Oxygen saturation in Arterial blood by Pulse oximetry Heart rate Respiratory rate Systolic blood pressure Diastolic blood pressure Provider Name and Address Organization Details Last Updated DateTime 4 154.94 cm 37.5 kg/m2 20142.0 9 g 99 % 99 % 95 /min 16 /min 111 mm[Hg] 78 mm[Hg] Monserrat Mcmahon MA [facility] 4 15:50:46 Date Recorded Body height Body mass index (BMI) Body weight Oxygen saturation Oxygen saturation in Arterial blood by Pulse oximetry Heart rate Respiratory rate Systolic blood pressure Diastolic blood pressure Provider Name and Address Organization Details Last Updated DateTime 5 154.94 cm 38.8 kg/m2 23675.2 4 g 97 % 97 % 77 /min 16 /min 134 mm[Hg] 88 mm[Hg] Priya Griffiths MA [facility] 5 08:25:20 Social History Question Answer Notes LastModified by Organizat ion Details LastModified Time Tobacco Smoking Status Current Every Day Smoker Ewa Esqueda MA [facility], [facility] 08/04/2014 10:50:39 What Is Your Level Of Alcohol Consumption? Occasional [email or web address] Information not available 03/12/2023 What Is Your Level Of Caffeine Consumption? Occasional Information not available 08/04/2014 What Type Of Diet Are You Following? REGULAR Information not available 08/04/2014 Education 12 [email or web address] Information no t available 08/04/2014 What Was The Date Of Your Most Recent Tobacco Screening? 08/05/2024 [email or web address] Information not available 08/05/2024 Seat Belts Used Routinely Yes [email or web address] Information not available 08/04/2014 How Much Tobacco Do You Smoke? 0.5 PPD [email or web address] Information not available 08/04/2014 Has Tobacco Cessation Counseling Been Provided? Yes Information not available 03/12/2023 On What Date Was Tobacco Cessation Counseling Provided? 08/05/2024 Information not available 08/05/2024 How Many Years Have You Smoked Tobacco? 16 Information not available 08/04/2014 Sex: Unknown Functional Status None recorded. Mental Status None recorded. Family History Relationship Description Onset Age of this Age Resolved Age Notes LastModified by Organization Details LastModified Time Mother Hypertensive disorder Not available 2014 10:26:18 Mother Diabetes mellitus [email or web address] Not available 2014 10:26:18 Mother Kidney disease [email or web address] Not available 2014 10:26:18 Medical History Condition [...] SNOMED-CT Code Diagnosis ICD10 Code Diagnosis Note [id number] DO Johnson [facility] ([facility]IC[facility]TER REPA[facility]ER) [address] [place] [address] 08/04/2014 09:45:08 08/04/2014 15:25:51 Pain in pelvis 08087908 [id number] YESI Lawson NP [facility] [address] [place] [address] 06/17/2018 11:25:42 06/17/2018 13:11:06 Vitamin D deficiency 17549274 E55.9 -Check Vit D level Pain of le ft hip joint 1951621885 95703 M25.552 -Obtain x-ray left hip-Naprox en prn-Contin ue conservati ve tx- ice, heat, rest, stretching -F/u prn Asthma 216754941 J45.90 9 -Renew ventolin Gastroesop hageal reflux disease 246067322 K21.9 -Renew ranitidine Sacral back pain 0085324 3 M54.5 -Obtain x-ray sacrum-Nap roxen prn -Continue conservati ve tx- ice, heat, rest, stretching -F/u prn Body mass index 30+ - obesity 689341825 Z68.37 -Obtain labs Pain in toe 352379767 M7 9.674 -Obtain labs-R/o gout, infection [id number] QUINTEN ALEXANDER [facility] [address] [place] [address] 03/12/2023 15:16:54 03/12/2023 16:10:11 Smoker 30487088 F17.200 1/2 ppdcutting back Depression screening 171 795705 Z13.31 PHQ 2 Screening for malignant neoplasm of cervix 999641905 Z12.4 vaginal spotting x1 yr, spots for 1-2 days then stopsprevi ously establishe d with HELICOPTER REPAIRER- couldn't figure out why she was passing clots, softball size, told that her endometriu m was normaldiag nosed with PCOSh/o endometria l ablationre shayne to HELICOPTER REPAIRER Screening for malignant neoplasm of breast 574895500 Z12.39 has never had mammogram Obesity 949878564 E66.9 discussed increasing exercise and healthier food options, high protein, low fat diet Loss of hair 982172679 L 65.9 x10 yrsconcern ed for thyroid issueshas not tried any meds for hair growthchec k TSH, can add on antibodies Mild inter mittent asthma 043569852 J45.20 refill Vitamin D deficiency 347 37091 E55.9 re-check Bacterial upper respiratory infection 526159169 A49.9 x1 wkcough, congestion , headaches, rhinorrhea [...] if not or on SSRI antidepres sants. [id number] QUINTEN ALEXANDER [facility] [address] [place] [address] 11/13/2023 16:40:10 11/13/2023 17:08:11 Mild intermittent asthma 777628340 J45.20 went to ED 1 wk ago due to SOB, no improvemen t with albuterolb reathing treatment, CXR nl, finished prednisone and augmentin w/ improvemen tPEx- nltrial ICSf/u in 1 mo Hypokalemia 57950612 E87 .6 low in ED, will re-check Hypomagnesemia 677268241 E83.42 low in ED, will re-checkta joel magnesium supplement 200 mg Spasm of back muscles 20 2951771 M62.830 since potassium IVlow back crampingPE x- mild TTP L upper trapezius muscletria l flexeril and ibuprofen Depression screening 171 384457 Z13.31 PHQ 0 [id number] QUINTEN ALEXANDER [facility] [address] [place] [address] 12/06/2023 16:33:06 12/06/2023 17:10:33 Diverticulitis of sigmoid colon 807388995 K57.32 diagnosed with acute sigmoid diverticul itis on 11/15/23 per EDput on flagyl and cipro w/ improvemen t of sxstates that she ate popcorn prior to onset on sxPEx- nldiscusse d symptoms and what foods to avoid to prevent flare Mild inter mittent asthma 758441443 J45.20 12/06/23: insurance will not cover flovent, will trial Qvar redihaler 11/13/23:molly t to ED 1 wk ago due to SOB, no improvemen t with albuterolb reathing treatment, CXR nl, finished prednisone and augmentin w/ improvemen tPEx- nltrial ICSf/u in 1 mo Depression screening 171 819477 Z13.31 PHQ 0 [id number] QUINTEN ALEXANDER [facility] [address] [place] [address] 01/03/2024 16:27:50 01/03/2024 17:00:23 Mass of axilla 135055103 R22.2 x2 wkscomes and goescan be painfulPEx - 1 cm x 2 cm nodule to L axilla, freely mobile, non-TTPord ered US bilateral Screening for malignant neoplasm of breast 545388515 Z12.39 has never had mammogram Skin tag 996321097 L91.8 to R axillaremo bessy without difficulty sent for pathology Pediculosis capitis 8100 0006 B85.0 daughter with liceno relief with permethrin , on back order at [facility] fan ingram [id number] QUINTEN ALEXANDER [facility] [address] [place] [address] 04/08/2024 15:41:41 04/08/2024 16:18:22 Depression screening 293224278 Z13.31 PHQ 0 Smoker 55326460 F17.200 1/2 ppd, cutting back on her ownfor 30 yrstrial nicotine patches Spasm of back muscles 20 8905755 M62.830 04/08/24: muscle cramps to mid back, legs, feet x3 mocutting back on soda, increasing fluid intake and foods high in potassiume ncouraged stretching daily and heating padflexeri l made her feel sleepy, can trial lower dose of tizanidine 11/13/23: since potassium IVlow back crampingPE x- mild TTP L upper trapezius muscletria l flexeril and ibuprofen Pain in right foot 76277 95947 65234 M79.671 R MTP jointinter mittent, can swell and painful with walking in certain shoesPEx- nlrefer to podiatry Screening for malignant neoplasm of cervix [id number] Z12.4 04/08/24: printed off referral and encouraged pt to call to schedule appt 03/12/23: vaginal spotting x1 yr, spots for 1-2 days then stopsprevi ously establishe d with HELICOPTER REPAIRER- couldn't figure out why she was passing clots, softball size, told that her endometriu m was normaldiag nosed with PCOSh/o endometria l ablationre shayne to HELICOPTER REPAIRER Screening for malignant neoplasm of breast [id number] Z12.39 has never had mammogram [id number] QUINTEN ALEXANDER [facility] [address] [place] [address] 08/05/2024 08:22:32 08/05/2024 08:41:52 Mild intermittent asthma [id number] J45.20 08/05/24: has not been using Qvar, couldn't avoid itsent new script and neb solution 12/06/23: insurance will not cover flovent, will trial Qvar redihaler 11/13/23:molly t to ED 1 wk ago due to SOB, no improvemen t with albuterolb reathing treatment, CXR nl, finished prednisone and augmentin w/ improvemen tPEx- nltrial ICSf/u in 1 mo Smoker [id number] F17.200 1/2 ppd, cutting back on her ownfor 30 yrsno relief with nicotine patches Obesity [id number] E66.9 BMI 38.8discus sed increasing exercise and healthier food options, high protein, low fat diet Depression screening 171 [id number] Z13.31 PHQ 3 Health Concerns Section Related Observation LastModified by Organization Detai ls LastModified Time None Recorded Concern Status LastModified by Organization Details LastModified Time None Recorded Advance Directives Directive None Recorded Payers Encounter Date Sequence Insurance Name Policy Number Policy Karimi Covered Member ID Karimi Member ID Guarantor Name 11/13/2023 1 [facility] [id number] Silke Read [id number] Silke Read 11/13/2023 2 [facility] - DOS ON OR AFTER 20 (MEDICAID REPLACEMENT - HMO) Silke Bussa [id number] Silke Bussa 12/06/2023 1 [facility] [id number] Silke M Bussa [id number] Silke Bussa 12/06/2023 2 [place] [facility] Silke Bussa [id number] Silke Bussa 01/03/2024 1 [facility] [id number] Silke M Bussa [id number] Silke Bussa 01/03/2024 2 [place] [facility] Silke Bussa [id number] Silke Bussa 04/08/2024 1 [facility] [id number] Silke M Bussa [id number] Silke Bussa 04/08/2024 2 [place] [facility] Silke Bussa [id number] Silke Bussa 08/05/2024 1 [facility] [id number] Silke M Bussa [id number] Silke Bussa 08/05/2024 2 [place] [facility] Silke Bussa [id number] Silke Bussa Notes Date Note Type Note Provider Name and Address Organization Details Recorded Time 11/13/2023 text/html Pt presents for ED f/u. [...] her skin. QUINTEN ALEXANDER Attn: [address] [place], [address], [place] 11/17/2023 16:18:45 12/06/2023 text/html Pt presents for ED f/u. Reports three wks ago, she developed nausea, stomach pain, and blood in stool x2 days. States that she went to ED, diagnosed with diverticulitis and discharged home on 2 antibiotics w/ improvement. Endorses that she ate popcorn prior to onset of symptoms. QUINTEN ALEXANDER Attn: [address] [place], [address], [facility] 12/10/2023 17:15:42 01/03/2024 text/html Pt presents for skin tag removal. 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 Calf and foot cramping is worse at night. She has been cutting back on her soda intake, drinking more water, and eating foods high in potassium. QUINTEN ALEXANDER Attn: [address] [facility], [place], [address], [facility] 04/10/2024 09:36:25 08/05/2024 text/html Pt presents for ED and asthma f/u. Reports that she went to ED 06/2024, diagnosed with bronchitis, treated for pneumonia since she was exposed. She was given amoxicillin, Z dominga, tessalon perles and prednisone with mild improvement. Endorses that she still has a cough, but it is improving. Requesting refills of albuterol and neb solution. QUINTEN ALEXANDER Attn: [address] [facility], [place], [address], [facility] 08/05/2024 14:59:33 OBGyn Episode No OBEpisode recorded.
--- OUTSIDE RECORDS SUMMARY | 2024-08-06 01:56 | XMS_ITS | Clinical Summary ---
Author Organization [facility] [employer] [facility] Address [address] [place] [address] Care Team Providers Care Night Custodian Name Role Phone Unavailable Primary Care Provider Unavailabl e Source Comments [facility],non-owned Affiliates and Associated Physician Practices is amultiple site organization consisting of ambulatory clinics and hospital sitesin [place], [place], [place] and [place]. This disclosure is being madepursuant to the Care Everywhere program and may not contain all information available regarding this patient. Last updated 18.[facility] Allergies Active Allergy Reactions Criticality Noted Date [...]
--- OUTSIDE RECORDS SUMMARY | 2024-08-06 01:57 | XMS_ITS ---
Author Organization [facility] Address [address] [place], [place] [id number] Care Team Providers Care Collections Agent Name Role Phone ALLENAntionette KALPESH Unavailable [phone] Pao Wheeler Unavailable Unavailable Allergies Allergen (clinical [...] Location Date Provider Diagnosis [facility] [place] [address] [place], [place] [id number] 05/04/2024 KAPLESH CAO Tinea pedis B35.3 ; Hallux rigidus, [...] * PAYTON YAPMAAMEDOB:1980 ( 44 yo F)Acc No.[id number]:05/04/2024 Patient: FRANCISCO MILES Provider: Teddy Cao DPM :1980 A ge:44 Y S ex:Female Date:05/04/2024 Address:[address] [place] [address] Subjective: * Chief Complaints: * T he [...] rn * Billing Information: * Visit Code: 32454 Office Visit, Est Pt., Level 3. * Procedure Codes: * D SECURITY OFFICER Sign off status: Completed true * Provider: Teddy Cao DPM Date: 07/04/2023 Generated for Krystyna castellon/Wilner/Maral on: 0 08/06/2024 01:56 AM ARMED SECURITY OFFICER History and Physical Notes * HPI (History [...]
--- NOTE | 2024-08-06 07:48 | PM.IMHP ---
H&P: HPI History of Present Illness Date/Time: 08/06/24 07:48 Chief Complaint: Abnormal Uterine Bleeding Narrative: 44-year-old female who presents for robotic assisted hysterectomy for management of abnormal uterine bleeding. Patient had a bilateral tubal ligation and endometrial ablation in 2017. Patient had amenorrhea for some time after the procedure but has since had return of heavy menses. Review of Systems Cardiovascular: Cardiovascular: Denies chest pain, Denies leg edema, Denies palpitations, Denies dyspnea and Denies dyspnea on exertion Respiratory: Respiratory: Denies cough, Denies dyspnea and Denies dyspnea on exertion Gastrointestinal: Gastrointestinal: Denies abdominal pain, Denies constipation, Denies diarrhea, Denies nausea and Denies vomiting Genitourinary: Genitourinary: Denies hematuria, Denies urinary frequency, Denies dysuria, Denies pelvic pain, Denies urinary incontinence and Denies vaginal discharge Neurologic: Reports system reviewed and no additional complaints, except as documented Psychiatric: Psychiatric: Reports no additional psychiatric complaints Endocrine: Endocrine: Denies palpitations PMFSH Past Medical History Medical History (Updated 08/06/24 @ 07:50 by Javan Zamorano MD) Screening mammogram for breast cancer IBS (irritable bowel syndrome) Migraine GERD (gastroesophageal reflux disease) Asthma Anemia Anxiety Allergies Surgical History Surgical History History of endometrial ablation H/O tubal ligation History of delivery x 3 Family History Family History Mother Heart disease Hypertension Grandparent Heart disease Hypertension Social History Social History Smoking status: Current every day smoker Tobacco type: cigarettes Alcohol intake: current Alcohol use details: rarely Substance use: never Substance use type: does not use Current Housing: Decline to Answer Concerned About Future Housing: Decline to Answer Difficulty Paying Gas/Electric Bills: Decline to Answer Difficulty Paying for Meds: Decline to Answer Currently Unemployed: Decline to Answer Education: Decline to Answer Difficulty w/ Childcare or Family Care: Decline to Answer Living arrangements: with family Occupation/Education: occupation Gender identity (if verbalized by the patient): Female Sexual Orientation (if Verbalized by the Patient): Straight or Heterosexual Meds Home Medications and Allergies Home Medications ?Medication ?Instructions ?Recorded ?Confirmed ?Type albuterol sulfate 90 mcg/actuation 1 inh inhalation QID PRN shortness 02/04/22 07/29/24 Rx aerosol inhaler (ProAir HFA) of breath or wheezing #6.7 grams albuterol sulfate 2.5 mg/3 mL 2.5 mg (3 mL) inhalation Q4H PRN 06/18/24 07/29/24 Rx (0.083 %) solution for nebulization bronchospasm #75 mL albuterol sulfate 90 mcg/actuation 1 puff inhalation QID #6.7 grams 06/18/24 07/29/24 Rx aerosol inhaler Allergies Allergy/AdvReac Type Severity Reaction Status Date / Time etodolac AdvReac Intermediate severe Verified 07/29/24 16:07 dehydration Exam Const: General: no acute distress Eyes: EOM: EOMs intact bilaterally Neck: Neck: supple Thyroid: thyroid normal Chest: Breast/axilla inspection: normal inspection of the breasts Breast/axilla palpation: normal palpation of the breasts, normal palpation of the axillae and no axillary lymphadenopathy Resp: Effort & Inspection: normal respiratory effort Auscultation: clear to auscultation bilaterally Cardio: Rate: regular rate Rhythm: regular rhythm GI: Inspection: non-distended GI Palp: Yes Soft to palpation, No Tenderness to palpation present (GI) and No Guarding due to palpation present (GI) Auscultation: normal bowel sounds : General: No bladder normal to palpation External Female Exam: normal external appearance Speculum Exam - Vagina: normal vaginal discharge and No vaginal bleeding Speculum Exam - Cervix: nontender Bimanual exam- vagina & uterus: No bladder normal to palpation and No Cervical tenderness present OB/external & speculum: No vaginal bleeding Skin: General skin exam: normal color and no rashes or lesions noted Neuro: Cognition (Neuro): normal cognition Speech: normal speech Extrem: General: normal to inspection and no edema Psych: Mental Status: mental status grossly normal Affect: normal affect Assessment and Plan Assessment and plan (1) Abnormal uterine bleeding (AUB): Code(s): N93.9 - Abnormal uterine and vaginal bleeding, unspecified Status: Acute Assessment and Plan: 44-year-old female who presented with complaint of abnormal bleeding Patient is status post tubal ligation and endometrial ablation in 2017 Patient is now having bothersome breakthrough bleeding She reports postcoital bleeding and bleeding after transvaginal ultrasound No structural causes of bleeding noted on pelvic ultrasound, endometrial thickness 5 mm Patient is requesting surgical management via hysterectomy Risks, benefits, alternatives discussed Will plan for robotic assisted total laparoscopic hysterectomy with bilateral salpingectomy recommended ovarian preservation
[2024-08-06] MEDS: LACTATED RINGERS 1,000 ML 30 ML IV CONT (11:00)
[2024-08-06] MEDS: KETOROLAC 15 MG/ML VIAL (*BKC) IV PUSH (11:00)
[2024-08-06] MEDS: ACETAMINOPHEN 500 MG TABLET 1000 MG PO ×3 (11:00→23:28)
--- NOTE | 2024-08-06 11:28 | WPDHPUPDATE1 ---
History and Physical Update Update Date/Time: 08/06/24 11:28 History and Physical has been reviewed, including an updated exam of the patient. There are NO changes in the patient's condition. Risks, benefits, and alternatives have been discussed and questions answered. Patient agrees to proceed with procedure.
--- NOTE | 2024-08-06 11:29 | WPDANESEPPF ---
Anes - Initial Pre Proc Eval Procedure: Operation Date: 08/06/24 12:00 Proposed Procedures p Robotic Assisted Total Laparoscopic Hysterectomy with Bilateral Salpingectomy - Javan Zamorano MD Date/Time: 08/06/24 11:29 Surgeon: Javan Zamorano MD Pre Op Diagnosis: abnormal uterine bleeding Patient Data Age: 44 Gender: F Height: 1.55 m Weight: 90.72 kg Allergies Allergy/AdvReac Type Severity Reaction Status Date / Time etodolac AdvReac Intermediate severe Verified 07/29/24 16:07 dehydration Home Medications ?Medication ?Instructions ?Recorded ?Confirmed ?Type albuterol sulfate 90 mcg/actuation 1 inh inhalation QID PRN shortness 02/04/22 07/29/24 Rx aerosol inhaler (ProAir HFA) of breath or wheezing #6.7 grams albuterol sulfate 2.5 mg/3 mL 2.5 mg (3 mL) inhalation Q4H PRN 06/18/24 07/29/24 Rx (0.083 %) solution for nebulization bronchospasm #75 mL albuterol sulfate 90 mcg/actuation 1 puff inhalation QID #6.7 grams 06/18/24 07/29/24 Rx aerosol inhaler HCG: negative Patient hx anesthesia problems: none Family hx anesthesia problems: none Results Review: All pre-operative results and documents have been reviewed as part of the pre-operative evaluation. [facility] Past Medical History Medical History Screening mammogram for breast cancer IBS (irritable bowel syndrome) Migraine GERD (gastroesophageal reflux disease) Asthma Anemia Anxiety Allergies Surgical History Surgical History History of endometrial ablation H/O tubal ligation History of delivery x 3 Family History Family History Mother Heart disease Hypertension Grandparent Heart disease Hypertension Social History Social History Smoking status: Current every day smoker Tobacco type: cigarettes Alcohol intake: current Alcohol use details: rarely Substance use: never Substance use type: does not use Current Housing: Decline to Answer Concerned About Future Housing: Decline to Answer Difficulty Paying Gas/Electric Bills: Decline to Answer Difficulty Paying for Meds: Decline to Answer Currently Unemployed: Decline to Answer Education: Decline to Answer Difficulty w/ Childcare or Family Care: Decline to Answer Living arrangements: with family Occupation/Education: occupation Gender identity (if verbalized by the patient): Female Sexual Orientation (if Verbalized by the Patient): Straight or Heterosexual Anes - Eval Final PreProcedure Day of Procedure 08/06/24 11:29 Patient weight: obese Heart: regular rate and rhythm Lungs: clear to auscultation Airway: Mallampati scale class 1 Neurological: alert and oriented Last oral intake: >/= 8 hours ASA classification: III Emergent: no Anesthetic plan: proceed Anesthesia type and monitoring: general ETT and standard monitoring Results Review: All pre-operative results and documents have been reviewed as part of the pre-operative evaluation. Informed Consent: The patient's anesthetic plan and its attendant risks and benefits were discussed with the patient/family/POA. Questions were solicited and answers provided to the satisfaction of the patient/family/POA.
[2024-08-06] MEDS: ceFAZolin 2 GM/D5W 50 ML 2 GM/50 ML BAG IVPB (11:44)
[2024-08-06] MEDS: LIDO 1%/EPINEPHRINE 1:100,000 50 ML VIAL 30 ML INFILTRATE (12:22)
[2024-08-06 13:02] LABS: BEDSIDEPREGUCG Negative (Negative)
--- NOTE | 2024-08-06 13:04 | W.PM.PROC2 ---
Procedure Note - Detailed Date of Procedure 08/06/24 Pre-op Diagnosis abnormal uterine bleeding Post-op Diagnosis Same Procedure Performed robotic assisted total laparoscopic hysterectomy and bilateral salpingectomy, 30 min lysis of adhesions Surgeon Javan Zamorano MD Anesthesia General Indications abnormal uterine bleeding Findings normal apperaing uterine serosa, normal ovaries bilaterally, previous tubal ligation bilaterally. Filmy adhesions between the bowel and the abdominal wall and the left adnexa Description of Procedure After the patient was appropriately consented she was taken to the operating room where she was transferred to the table in a dorsal supine position. General anesthesia was then induced with endotracheal intubation. The patient was transferred to a dorsal lithotomy position using adjustable yellow-fin stirrups. Her position was adjusted for appropriate support of her lower back and lower extremities. The patient was prepped and draped. A transurethral russo catheter was place. The cervix was sequentially dilated and a DANIA uterine manipulator placed in typical fashion about a 2.5cm TEX ring. Gloves were changed. After confirmation of a functioning orogastric tube, lidocaine was injected at Atkinson's point in the LUQ and a 8mm incision was made. A 5mm Optiview trocar was then inserted into the abdominal cavity under direct visualization and done so without complication. The abdomen was then insufflated with approximately 2-3L of CO2 establishing a pneumoperitoneum and the patient was placed in Trendelenburg position. Just above the umbilicus in the midline, a 8 mm incision made after injection of lidocaine and a 8 mm bladeless trocar advanced into the abdominal cavity under direct visualization without incident. We subsequently placed two robotic ports in a similar fashion, one in the left mid-quadrant and one in the right, 10cm lateral to the midline port. Upon abdominal survey, there were omental adhesions to the anterior abdominal wall. These adhesions were taken down under direct visualization with laparoscopic scissors. The robot was then docked. Attention was turned to the left pelvis. Filmy adhesions were noted between the bowel omentum and the left adnexa. These adhesions were taken down sharply to restore normal anatomy. The left fallopian tube was removed by sequentially dividing the mesosalpinx towards the uterus sparing the ovary. The utero-ovarian ligament was desiccated and transected, as was the round ligament. The posterior peritoneal leaf was taken down to the TEX ring. The anterior leaf was developed as well as the start of the bladder flap. The left uterine artery was then skeletonized and desiccated and transected just above the level of the TEX ring. Attention was turned to the right pelvis. The right fallopian tube was removed by sequentially dividing the mesosalpinx towards the uterus sparing the ovary. The utero-ovarian ligament was desiccated and transected, as was the round ligament. The posterior peritoneal leaf was taken down to the TEX ring. The anterior leaf was developed as well as the start of the bladder flap. The right uterine artery was then skeletonized and desiccated and transected just above the level of the TEX ring. The bladder was then further dissected inferiorly over the level of the TEX ring. A circumferential colpotomy was made using monopolar current. The uterus, cervix, bilateral tubes were then delivered transvaginally. I then placed a single figure of eight suture of 0-vicryl in the left corner of the vaginal cuff. I then re-approximated the colpotomy with a running #1 PDO Quill suture in 2 layers. Following this dissection, the abdomen and pelvis were copiously irrigated and all surgical sites found to be hemostatic. Surgicell powder was placed over the vaginal cuff to ensure excellent hemostasis. Skin sites were reapproximated with 4-0 Vicryl in a subcuticular fashion. Steri-Strips were placed. The patient tolerated the procedure well. Sponge, needle and instrument counts were correct x 2 and the patient was taken to recovery in stable condition. Ancef was given for antimicrobial prophylaxis. The patient had SCD's on for VTE prophylaxis during the entire procedure. Estimated Blood Loss 50 Drains No Packing No Pathology Yes (cervix, uterus, bilateral fallopian tubes) Complications No immediate complications Condition Stable Disposition PACU [facility] Billing Surgery - Charge Forward: Surgery Billing
[2024-08-06] MEDS: fentaNYL CITRATE INJ (*CRX) 100 MCG/2 ML VIAL 25 MCG IV PUSH ×7 (13:15→13:39)
[2024-08-06] MEDS: MORPHINE SULFATE INJ (*CRX) 10 MG/ML AMP 2 MG IV PUSH ×4 (14:01→14:25)
--- NOTE | 2024-08-06 14:40 | ADMGEN ---
This patient, Silke Read, was admitted to OB 2nd Floor Room 289-00. Patient/family oriented to hospital policies and general routines including ID bracelet, bed and alarms, visiting hours, pain management, procedures, bathroom and other care routines, personal items, smoking policy, room service/diet, and visiting hours. Information on how to activate the Rapid Response Team has been discussed. Patient/Family are encouraged to report perceived risks to care and to ask questions if they do not understand what they are told or what they should do.
[2024-08-06] MEDS: oxyCODONE HCL (*CRX) 5 MG TAB IR PO ×2 (15:21→20:16)
--- NOTE | 2024-08-06 16:01 | PC.NURSE ---
On 08/06/24, the [facility] student loan counselor, Susan, provided care and completed [employer] documentation on this patient. I have reviewed the student's documentation and agree with the findings.
[2024-08-06] MEDS: SIMETHICONE 80 MG TAB.CHEW PO (17:34)
[2024-08-06] MEDS: DOCUSATE SODIUM 100 MG CAPSULE PO (17:34)
[2024-08-06] MEDS: KETOROLAC 30 MG/ML VIAL (*BKC) IV PUSH ×2 (17:35→23:28)
[2024-08-06] MEDS: ALBUTEROL SULFATE NEB 2.5 MG/3 ML INH INHALATION (19:23)
[2024-08-06] MEDS: HYDROCORTISONE 2.5% CREAM 30 GM TUBE 1 APPLIC TOPICAL (20:17)
[2024-08-07] MEDS: oxyCODONE HCL (*CRX) 5 MG TAB IR PO (02:57)
[2024-08-07 03:00] VITALS: BP 120/81; PULSE 98; RESP 18; TEMP 36.8; O2SAT 97
[2024-08-07 03:25] LABS: Basophils Absolute Auto 0.1 K/mm3 (0.0-0.1); Basophils Percent Auto 0.3 % (0.2-1.2); Eosinophils Absolute Auto 0.1 K/mm3 (0-0.3); Eosinophils Percent Auto 0.3 % (0-4.4); Hemoglobin 14.5 g/dL (12.0-15.0); Immature Granulocyte Absolute 0.07 K/mm3 (0.00-0.031); Immature Granulocyte Percent A 0.4 % (0-0.5); Lymphocytes Percent Auto 12.3 % (18.3-44.2); Mean Corpuscular HGB Conc 35.4 g/dl (32-36); Mean Corpuscular Hemoglobin 32.6 pg (26-34); Mean Corpuscular Volume 92.1 fl (80-100); Mean Platelet Volume 10.5 fl (7.4-10.4); Monocytes Percent Auto 6.1 % (2.6-8.5); Neutrophils Absolute Auto 13.1 K/mm3 (1.3-6.7); Neutrophils Percent Auto 80.6 % (45.5-73.1); Platelet Count Result 274 k/mm3 (150-375); Red Blood Count 4.45 M/mm3 (4.2-5.4); Red Cell Distribution Width 13.3 % (11.5-14.5); White Blood Count 16.3 K/mm3 (4.5-10.0)
[2024-08-07 03:39] LABS: Anion Gap 11 mmol/L (4-12); Blood Urea Nitrogen 8 mg/dL (7-17); Calcium 8.4 mg/dL (8.4-10.2); Carbon Dioxide 24 mmol/L (22-30); Chloride 104 mmol/L (98-107); Estimated CRCL calculation 85 ml/min; Estimated Glomerular Filt Rate > 60; Glucose 100 mg/dL (65-110); Potassium 3.6 mmol/L (3.4-5.0); Sodium 139 mmol/L (137-145)
[2024-08-07] MEDS: ACETAMINOPHEN 500 MG TABLET 1000 MG PO ×2 (06:16→13:19)
[2024-08-07] MEDS: KETOROLAC 30 MG/ML VIAL (*BKC) IV PUSH (06:16)
--- NOTE | 2024-08-07 06:24 | PC.NURSE ---
Patient was also offered inhaler at 0624 but stated that she preferred to have the nebulizer treatment.
--- NOTE | 2024-08-07 06:24 | PC.NURSE ---
Patient indicated that she is needing nebulizer treatment this AM, respiratory notified at 0624.
[2024-08-07 08:00] VITALS: PULSE 84; RESP 16
[2024-08-07] MEDS: ALBUTEROL SULFATE NEB 2.5 MG/3 ML INH INHALATION (08:00)
[2024-08-07 08:10] VITALS: BP 133/92; PULSE 72; PULSE 90; RESP 16; RESP 18; TEMP 36.8; O2SAT 97
[2024-08-07] MEDS: DOCUSATE SODIUM 100 MG CAPSULE PO (08:56)
[2024-08-07] MEDS: SIMETHICONE 80 MG TAB.CHEW PO ×2 (08:56→13:20)
[2024-08-07] MEDS: ENOXAPARIN 40 MG/0.4 ML SYRINGE SUB-Q (08:56)
--- NOTE | 2024-08-07 09:55 | WPDANESPN ---
Anes - Prog Note Post-Op Date/Time: 08/07/24 09:55 Cardiovascular status: normal Respiratory status: normal Airway patency: baseline Mental status: baseline Post-Op hydration status: normal Vital Signs: Last Vital Signs Temp 36.8 C 08/07/24 08:10 Pulse 90 08/07/24 08:10 Resp 18 08/07/24 08:10 BP 133/92 H 08/07/24 08:10 Pulse Ox 97 08/07/24 08:10 O2 Del Method Room Air 08/06/24 14:50 O2 Flow Rate 8 08/06/24 13:30 Pain Score (VAS): 3 I/O: Intake & Output 08/06/24 08/07/24 08/07/24 23:59 07:59 15:59 Intake Total 630 Output Total 400 400 Balance 230 -400 Laboratory Tests 08/07/24 02:55 08/07/24 02:55 08/06/24 08/07/24 10:30 02:55 WBC 16.3 H RBC 4.45 Hgb 14.5 Hct 41.0 MCV 92.1 MCH 32.6 MCHC 35.4 RDW 13.3 Plt Count 274 MPV 10.5 H Immature Gran % (Auto) 0.4 Neut % (Auto) 80.6 H Lymph % (Auto) 12.3 L Alfalfa % (Auto) 6.1 Eos % (Auto) 0.3 Baso % (Auto) 0.3 Lymph # (Auto) 2.00 Alfalfa # (Auto) 1.0 H Eos # (Auto) 0.1 Baso # (Auto) 0.1 Abs Immat Gran (auto) 0.07 H Absolute Neuts (auto) 13.1 H Absolute Nucleated RBC 0.000 Nucleated RBC % 0.0 Sodium 139 Potassium 3.6 Chloride 104 Carbon Dioxide 24 Anion Gap 11 BUN 8 Creatinine 0.76 Estim Creat Clear Calc 85 Estimated GFR > 60 Glucose 100 Calcium 8.4 POC Urine HCG, Qual Negative Post-procedural complaints: none Patient Feedback: Patient satisfied with anesthetic care.patient right hand was red, to just above her wrist. IV site was on left arm. patient stated hand became warm and red last night. Dr. travis is monitoring. redness was receding.
[2024-08-07] MEDS: IBUPROFEN 600 MG TABLET PO (13:20)
[2024-08-07] MEDS: HYDROCORTISONE 2.5% CREAM 30 GM TUBE 1 APPLIC TOPICAL (13:22)
--- NOTE | 2024-08-07 13:24 | PM.GYNPNOP ---
RECREATION TECHNICIAN - A/P Assessment and plan (1) Abnormal uterine bleeding (AUB): Code(s): N93.9 - Abnormal uterine and vaginal bleeding, unspecified Status: Acute Plan 44 yo female POD#1 from robotic TLH/BS VSS, afebrile no bleeding overnight pain controlled with Po medications incisions covered with dermabond H/H stable discussed VTE prophylaxis. Will start lovenox daily pt having L LE edema/erythema. She reports improvement with hydrocortisone topically. LE doppler negative for DVT. Postoperative Procedures: Procedures Operation Date: 08/06/24 12:00 Actual Procedure Side Surgeon p Robotic Assisted Total Laparoscopic Hysterectomy with Bilateral Salpingectomy, Lysis of Adhesions Bilateral Javan Zamorano MD Postoperative status: doing well Postoperative plan: routine post-op care Time Spent With Patient Time: Total time spent is greater than 50% in coordination of care (as documented) at patient's floor/unit and/or counseling patient: Time with patient: 15 - 25 minutes RECREATION TECHNICIAN- PN:Subj Post-Op Subjective Date/time seen: 08/07/24 13:24 Interval history: 44 yo female POD #1 from robotic TLH/BS. She reports good pain control with PO medications. Denies any bleeding issues. She is voiding without difficulty. Pt does report erythema and swelling in her left lower extremity. Review of Systems Review of Systems: All systems reviewed & are unremarkable except as noted in HPI and below Exam Const: General: cooperative and comfortable Resp: Effort & Inspection: normal respiratory effort and able to speak in complete sentences Cardio: Rate: regular rate GI: Inspection: incision (laparoscopic incision covered with dermabond) Extrem: Elbow/forearm/wrist images:  1. area of erythema and edema RECREATION TECHNICIAN - PN: Obj Data Vital Signs Vital Signs: Vital Signs - 24 hr 08/06/24 13:30 08/06/24 13:45 08/06/24 14:00 Temperature Pulse Rate 70 67 66 Respiratory Rate 18 19 11 L Blood Pressure 157/92 H 148/86 H 144/88 H Pulse Oximetry 100 100 95 Oxygen Delivery Simple Face Mask Room Air Room Air Oxygen Flow Rate 8 08/06/24 14:15 08/06/24 14:30 08/06/24 14:45 Temperature 97.8 F Pulse Rate 66 69 78 Respiratory Rate 12 13 16 Blood Pressure 129/76 139/93 H 153/88 H Pulse Oximetry 94 93 93 Oxygen Delivery Room Air Room Air Oxygen Flow Rate 08/06/24 14:50 08/06/24 19:23 08/06/24 19:32 Temperature Pulse Rate 80 78 Respiratory Rate 18 18 Blood Pressure Pulse Oximetry Oxygen Delivery Room Air Oxygen Flow Rate 08/06/24 20:15 08/06/24 23:30 08/07/24 03:00 Temperature 98.1 F 98.7 F 98.3 F Pulse Rate 87 69 98 Respiratory Rate 18 16 18 Blood Pressure 146/86 H 106/75 120/81 Pulse Oximetry 95 98 97 Oxygen Delivery Oxygen Flow Rate 08/07/24 08:00 08/07/24 08:10 08/07/24 08:10 Temperature 98.2 F Pulse Rate 84 72 90 Respiratory Rate 16 16 18 Blood Pressure 133/92 H Pulse Oximetry 97 Oxygen Delivery Oxygen Flow Rate Intake/Output Intake/Output: Intake & Output 08/04/24 08/05/24 08/06/24 08/07/24 23:59 23:59 23:59 23:59 Intake Total 1280 480 Output Total 650 400 Balance 630 80 Meds/Results Medications: Active Medications Generic Name Dose Route Start Last Admin Trade Name Freq PRN Reason Stop Dose Admin Acetaminophen 1,000 mg 08/06/24 18:00 08/07/24 13:19 Acetaminophen 500 Mg Tablet PO 1,000 mg Q6HR CRISSY Administration Albuterol 2.5 mg 08/06/24 14:32 08/07/24 08:00 Albuterol Sulfate Neb 2.5 Mg/3 Ml Inh INHALATION 2.5 mg Q4H PRN Administration bronchospasm Albuterol 1 puff 08/06/24 17:00 08/07/24 13:11 Albuterol Sulfate (*Sp) Aerosol 1 Puff INHALATION Not Given QID CRISSY Albuterol 1 puff 08/06/24 14:32 Albuterol Sulfate (*Sp) Aerosol 1 Puff INHALATION QID PRN shortness of breath or wheezing Docusate Sodium 100 mg 08/06/24 17:00 08/07/24 08:56 Docusate Sodium 100 Mg Capsule PO 100 mg BID CRISSY Administration Enoxaparin Sodium 40 mg 08/07/24 09:00 08/07/24 08:56 Enoxaparin 40 Mg/0.4 Ml Syringe SUB-Q 40 mg DAILY CRISSY Administration Hydrocortisone 1 applic 08/06/24 21:00 08/07/24 13:22 Hydrocortisone 2.5% Cream 30 Gm Tube TOPICAL 1 applic Q12HR CRISSY Administration Ibuprofen 600 mg 08/07/24 12:00 08/07/24 13:20 Ibuprofen 600 Mg Tablet PO 600 mg Q6HR CRISSY Administration Naloxone HCl 0.1 mg 08/06/24 14:32 Naloxone Hcl 0.4 Mg/Ml Vial IV PUSH Q2M PRN Respiratory rate less than 10 Ondansetron HCl 4 mg 08/06/24 14:32 Ondansetron Inj 4 Mg/2 Ml Vial IV PUSH Q6H PRN Nausea And Vomiting Oxycodone HCl 5 mg 08/06/24 14:32 08/07/24 02:57 Oxycodone Hcl (*Crx) 5 Mg Tab Ir PO 5 mg Q4H PRN Administration Pain Rated 4-6 Oxycodone HCl 10 mg 08/06/24 14:32 Oxycodone Hcl (*Crx) 5 Mg Tab Ir PO Q6H PRN Pain Rated 7-10 Simethicone 80 mg 08/06/24 17:00 08/07/24 13:20 Simethicone 80 Mg Tab.Chew PO 80 mg TIDWM CRISSY Administration Radiology Results: ITS Impressions Venous Doppler Study 08/07/24 11:11 IMPRESSION: 1. No deep venous thrombosis. Labs 08/07/24 02:55 08/07/24 02:55 Labs: Laboratory Results - last 24 hr 08/07/24 02:55 WBC 16.3 H RBC 4.45 Hgb 14.5 Hct 41.0 MCV 92.1 MCH 32.6 MCHC 35.4 RDW 13.3 Plt Count 274 MPV 10.5 H Immature Gran % (Auto) 0.4 Neut % (Auto) 80.6 H Lymph % (Auto) 12.3 L [place] % (Auto) 6.1 Eos % (Auto) 0.3 Baso % (Auto) 0.3 Lymph # (Auto) 2.00 [place] # (Auto) 1.0 H Eos # (Auto) 0.1 Baso # (Auto) 0.1 Abs Immat Gran (auto) 0.07 H Absolute Neuts (auto) 13.1 H Absolute Nucleated RBC 0.000 Nucleated RBC % 0.0 Sodium 139 Potassium 3.6 Chloride 104 Carbon Dioxide 24 Anion Gap 11 BUN 8 Creatinine 0.76 Estim Creat Clear Calc 85 Estimated GFR > 60 Glucose 100 Calcium 8.4
--- NOTE | 2024-08-07 13:32 | PM.DS ---
DS: Admitting Diagnosis Discharge Date 08/07/24 Admitting Diagnosis AUB DS: Discharge Diagnosis Discharge Diagnosis (1) Abnormal uterine bleeding (AUB): Code(s): N93.9 - Abnormal uterine and vaginal bleeding, unspecified Status: Acute DS: Summary Hospital Course Hospital Course: Silke Read was admitted after robotic assisted total laparoscopic hysterectomy and bilateral salpingectomy for abnormal uterine bleeding. The above procedure was performed with no complications. She is doing well post op. She states her pain is well controlled with PO medications. She reports minimal bleeding. She is ambulating up to the chair. Her russo catheter was removed. She is tolerating PO without N/V. She reports passing flatus. There was concern for erythema and edema of her left lower extremity. Venous doppler was negative for DVT. Erythema had improved with topical hydrocortisone. Patient advised to monitor erythema improvement by marking the margin. Time spent discussing smoking cessation with patient: 3 to 10 minutes Status at Discharge Overall status at discharge: patient is progressing back to baseline Time Spent with Patient Time attestation: Total time spent providing and/or coordinating discharge services: Time spent: Less than 30 minutes Exam Const: General: comfortable and no acute distress Limitations: no limitations Resp: Effort & Inspection: normal respiratory effort Auscultation: clear to auscultation bilaterally Cardio: Rate: regular rate Rhythm: regular rhythm GI: Inspection: non-distended GI Palp: Yes Soft to palpation, Yes Tenderness to palpation present (GI) (milder tenderness to deep palpation) and No Guarding due to palpation present (GI) Auscultation: normal bowel sounds Other: incisions C/D/I covered with dermabond Urinary Catheter: Urinary Catheter: urine clear Skin: General skin exam: normal color Extrem: General: normal to inspection Psych: Mental Status: mental status grossly normal Affect: normal affect DS: Data Data Completed and Pending Completed studies during hospitalization: Pending at discharge 08/06/24 12:44 Surgical [PTH] Routine Labs on day of discharge: Labs from last 24 hours 08/07/24 02:55 WBC 16.3 H RBC 4.45 Hgb 14.5 Hct 41.0 MCV 92.1 MCH 32.6 MCHC 35.4 RDW 13.3 Plt Count 274 MPV 10.5 H Immature Gran % (Auto) 0.4 Neut % (Auto) 80.6 H Lymph % (Auto) 12.3 L [place] % (Auto) 6.1 Eos % (Auto) 0.3 Baso % (Auto) 0.3 Lymph # (Auto) 2.00 [place] # (Auto) 1.0 H Eos # (Auto) 0.1 Baso # (Auto) 0.1 Abs Immat Gran (auto) 0.07 H Absolute Neuts (auto) 13.1 H Absolute Nucleated RBC 0.000 Nucleated RBC % 0.0 Sodium 139 Potassium 3.6 Chloride 104 Carbon Dioxide 24 Anion Gap 11 BUN 8 Creatinine 0.76 Estim Creat Clear Calc 85 Estimated GFR > 60 Glucose 100 Calcium 8.4 Discharge Plan Discharge Patient Disposition: Home, Self-Care Patient Instructions: Laparoscopic Hysterectomy (DC) Patient Language: Persian Stand Alone Forms: General Discharge Instructions Follow-up/Referrals: Javan Zamorano MD [Physician] - 2 Weeks Discharge Medications: New enoxaparin [Lovenox] 40 mg/0.4 mL syringe 40 mg subcut DAILY 42 Days Qty: 16.8 0RF oxycodone-acetaminophen 5-325 mg tablet 1 tablet PO Q6H PRN (Reason: pain) Qty: 28 0RF ibuprofen 600 mg tablet 600 mg PO Q6H PRN (Reason: pain) Qty: 30 0RF sennosides-docusate sodium [Senna with Docusate Sodium] 8.6-50 mg tablet 1 tab-cap PO HS Qty: 30 0RF Continued albuterol sulfate [ProAir HFA] 90 mcg/actuation HFA aerosol inhaler 1 inh inhalation QID PRN (Reason: shortness of breath or wheezing) Qty: 6.7 0RF albuterol sulfate 90 mcg/actuation HFA aerosol inhaler 1 puff inhalation QID Qty: 6.7 0RF albuterol sulfate 2.5 mg /3 mL (0.083 %) solution for nebulization 2.5 mg inhalation Q4H PRN (Reason: bronchospasm) Qty: 75 0RF
== END 2024-08-07 14:20 | disposition home or self-care (01) ==
LOC: ANHSURGERY 10:01 → ANHOB2 15:27
PROVIDERS: PCP Physician Assistant; Visit Provider Student in an Organized Health Care Education/Training Program
PROC: (CPT 58571; principal; 2024-08-06 12:00)
DX: N88.8 Other specified noninflammatory disorders of cervix uteri (principal); N88.0 Leukoplakia of cervix uteri; N87.9 Dysplasia of cervix uteri, unspecified; N80.209 Endometriosis of unspecified fallopian tube, unspecified depth; N83.8 Other noninflammatory disorders of ovary, fallopian tube and broad ligament; K21.9 Gastro-esophageal reflux disease without esophagitis; J45.909 Unspecified asthma, uncomplicated; F41.9 Anxiety disorder, unspecified; F17.210 Nicotine dependence, cigarettes, uncomplicated; L53.9 Erythematous condition, unspecified
CPT/HCPCS: 58571; S2900; 36415; 80048; 85025; 88307; 93971; 94640; 99199; A9270; J0690; J1100; J1650; J1885; J2004; J2250; J2270; J2405; J2704; J3010; J7030; J7120

== ENCOUNTER 2024-08-27 16:09 | Emergency (ER) | payer OTHER, SELFPAY ==
--- NOTE | 2024-08-27 16:12 | ED.URI ---
HPI - URI/Sore Throat General Chief Complaint: Fever Stated Complaint: Fever/Bodyaches Time Seen by Provider: 08/27/24 17:15 Source: patient, RN notes reviewed and old records reviewed Mode of arrival: ambulatory Limitations: no limitations History of Present Illness HPI Narrative: Patient not in room initially, causing delay in seeing patient Patient presents with complaints of fever, chills, sweats, body aches. Reports all symptoms began yesterday. Patient is 3 weeks postop, says that body aches are so bad that she did not take Lovenox as prescribed today. She has not alerted her surgeon that she is having difficulties. She has been taking Tylenol and ibuprofen for her symptoms with moderate relief. She does not appear to be in any obvious distress Related Data Allergies Allergy/AdvReac Type Severity Reaction Status Date / Time etodolac AdvReac Intermediate severe Verified 08/27/24 16:18 dehydration Review of Systems Review of Systems: All systems reviewed & are unremarkable except as noted in HPI and below Constitutional: Constitutional: Reports no additional constitutional complaints, Reports body ache(s), Reports chills, Reports headache(s) and Reports lethargy ENT: Reports system reviewed and no additional complaints, except as documented Cardiovascular: Cardiovascular: Reports no additional cardiovascular complaints Respiratory: Respiratory: Reports no additional respiratory complaints Gastrointestinal: Gastrointestinal: Reports no additional gastrointestinal complaints Integumentary/Breasts: Skin/Breast: Reports wounds (Healing surgical wounds on abdomen) [facility] Past Medical History Medical History Screening mammogram for breast cancer IBS (irritable bowel syndrome) Migraine GERD (gastroesophageal reflux disease) Asthma Anemia Anxiety Allergies Surgical History Surgical History History of hysterectomy History of endometrial ablation H/O tubal ligation History of delivery x 3 Family History Family History Mother Heart disease Hypertension Grandparent Heart disease Hypertension Social History Social History Years smoked: 20 Smoking status: Current every day smoker Tobacco type: cigarettes Alcohol intake: current Alcohol use details: rarely Substance use: never Substance use type: does not use Current Housing: Decline to Answer Concerned About Future Housing: Decline to Answer Difficulty Paying Gas/Electric Bills: Decline to Answer Difficulty Paying for Meds: Decline to Answer Currently Unemployed: Decline to Answer Education: Decline to Answer Difficulty w/ Childcare or Family Care: Decline to Answer Living arrangements: with family Occupation/Education: occupation Gender identity (if verbalized by the patient): Female Sexual Orientation (if Verbalized by the Patient): Straight or Heterosexual Spiritual care concerns: No Comments At the time of my signature, I reviewed and agree with the nursing past medical, surgical, social, and family history. There is no relevant family history pertinent to the patient complaint. Exam Const: General: cooperative, no acute distress, alert and awake Orientation/consciousness: oriented to person, oriented to place and oriented to time HENMT: Head: normal to inspection Resp: Effort & Inspection: normal respiratory effort and able to speak in complete sentences Auscultation: clear to auscultation bilaterally, no crackles, no rales, no rhonchi and no wheezes Cardio: Palpation: normal PMI Rate: regular rate Rhythm: regular rhythm Heart sounds: S1 normal heart sound present and S2 normal heart sound present Skin: Wounds: wounds noted (For small surgical wounds to abdomen, healing without any sign of infection) Neuro: General: oriented to person, oriented to place and oriented to time Cranial nerves: Yes CN's II-XII intact bilaterally Psych: Appearance: grossly normal Thought process: Normal thought process present Insight: Good insight present (Psych) Judgement: Good judgement present (Psych) Course Course Level of Care: Express Care Visit Vital Signs Vital signs: Reviewed MDM - URI/Sore Throat MDM Narrative Medical decision making narrative: Negative COVID, negative flu. Patient urged to contact her surgeon regarding her current symptoms. She does report that she has already spoken her primary care provider. Emergency department precautions discussed. Discharge instructions reviewed with patient, as well as provided in writing per nursing staff. The instructions also include specific and strict return/GO TO THE ER as well as f/u information. All questions have been answered, and the patient deny any further questions with discharge and discharge plan. Some parts of this dictation were generated by voice recognition software and may contain typographical and/or grammatical inaccuracies. Differential Diagnosis Differential diagnosis: Likely upper respiratory infection, viral infection and other (Surgical infection) Medical Records Attestation: I reviewed the patient's medical records. Lab Data Attestation: I reviewed the patient's lab results. Discharge Plan Discharge Clinical Impression: Fever of unknown origin Patient Disposition: Home, Self-Care Condition: Stable Instructions: Antibiotic Form, Fever in Adults (ED) Additional Instructions: Call your surgeon in the morning to discuss her symptoms. Emergency department for new or worsening symptoms. Follow-up with primary care provider Patient Language: Burkinan Prescriptions: No Action albuterol sulfate [ProAir HFA] 90 mcg/actuation HFA aerosol inhaler 1 inh inhalation QID PRN (Reason: shortness of breath or wheezing) Qty: 6.7 0RF enoxaparin [Lovenox] 40 mg/0.4 mL syringe 40 mg subcut DAILY 42 Days Qty: 16.8 0RF sennosides-docusate sodium [Senna with Docusate Sodium] 8.6-50 mg tablet 1 tab-cap PO HS Qty: 30 0RF albuterol sulfate 90 mcg/actuation HFA aerosol inhaler 1 puff inhalation QID Qty: 6.7 0RF albuterol sulfate 2.5 mg /3 mL (0.083 %) solution for nebulization 2.5 mg inhalation Q4H PRN (Reason: bronchospasm) Qty: 75 0RF Follow-up/Referrals: Summer,QUINTEN Cedeno [Primary Care Provider] - 2 Days Stand Alone Forms: Work/School Release IP Time of Disposition: 17:32
[2024-08-27 16:14] VITALS: BP 118/67; PULSE 115; RESP 20; TEMP 36.7; O2SAT 99
[2024-08-27 16:46] LABS: EDCOVIDSCREEN Negative (Negative); EDINFLUASCREEN Negative (Negative); EDINFLUBSCREEN Negative (Negative)
== END 2024-08-27 17:35 | disposition home or self-care (01) ==
PROVIDERS: Emergency Provider Nurse Practitioner Family; PCP Physician Assistant
DX: R50.9 Fever, unspecified (principal); Z20.822 Contact with and (suspected) exposure to COVID-19; F17.210 Nicotine dependence, cigarettes, uncomplicated; K58.9 Irritable bowel syndrome, unspecified; K21.9 Gastro-esophageal reflux disease without esophagitis; J45.909 Unspecified asthma, uncomplicated
CPT/HCPCS: 87426; 87804; 99212; G0463

== ENCOUNTER 2024-09-11 09:58 | Emergency (ER) | payer OTHER, SELFPAY ==
[2024-09-11 10:11] VITALS: BP 138/82; PULSE 106; RESP 16; TEMP 37.2; O2SAT 99
[2024-09-11 10:35] LABS: EDCOVIDSCREEN Positive (Negative); EDINFLUASCREEN Negative (Negative); EDINFLUBSCREEN Negative (Negative)
[2024-09-11 10:36] LABS: EDSTREPNEGPOS1 Negative (Negative)
--- NOTE | 2024-09-11 10:48 | ED.URI ---
HPI - URI/Sore Throat General Chief Complaint: Upper Respiratory Infection Stated Complaint: sinus pressure/pain sore throat,fever Source: patient and RN notes reviewed Mode of arrival: ambulatory Limitations: no limitations History of Present Illness HPI Narrative: 44-year-old female presents to the [facility] complaining of upper respiratory symptoms for 5 days. She reports having a fever, sore throat, cough, body aches, and nasal discharge. She denies any chest pain, difficulty breathing, your pain, nausea, vomiting, diarrhea. She has history of chronic bronchitis and smokes about half a pack of cigarettes a day. She uses daily nebulizer and ablbuterol inhaler for her chronic bronchitis and she says that controls her breathing. She has been taking [id number] medicines help with her symptoms along with Tylenol for fevers. She reports she is not feeling any better. She says she recently had a hysterectomy is currently on Lovenox shots for a probable blood clot in her right arm after being in the hospital for procedure. Related Data Allergies Allergy/AdvReac Type Severity Reaction Status Date / Time etodolac AdvReac Intermediate severe Verified 09/11/24 10:45 dehydration Review of Systems Review of Systems: CONSTITUTIONAL: Denies chills, or sweats. Positive for body aches and fevers. EYES: Denies visual changes, redness, or discharge. ENT: Denies rhinorrhea or otalgia. Positive for congestion, sore throat CARDIOVASCULAR: Denies chest pain, palpitations, or edema. RESPIRATORY: Positive for cough. Negative for dyspnea. GASTROINTESTINAL: Denies abdominal pain, nausea, vomiting, or diarrhea. GENITOURINARY: Denies dysuria or hematuria. SKIN: Denies rash or itching. MUSCULOSKELETAL: Denies back pain, joint pain, or myalgia. NEUROLOGIC: Denies headache, numbness, or weakness. PSYCHIATRIC: Denies anxiety or depression. All other systems reviewed are negative, except as documented in HPI. [facility] Past Medical History Medical History Screening mammogram for breast cancer IBS (irritable bowel syndrome) Migraine GERD (gastroesophageal reflux disease) Asthma Anemia Anxiety Allergies Surgical History Surgical History History of hysterectomy History of endometrial ablation H/O tubal ligation History of delivery x 3 Family History Family History Mother Heart disease Hypertension Grandparent Heart disease Hypertension Social History Social History Years smoked: 20 Smoking status: Current every day smoker Tobacco type: cigarettes Alcohol intake: current Alcohol use details: rarely Substance use: never Substance use type: does not use Current Housing: Decline to Answer Concerned About Future Housing: Decline to Answer Difficulty Paying Gas/Electric Bills: Decline to Answer Difficulty Paying for Meds: Decline to Answer Currently Unemployed: Decline to Answer Education: Decline to Answer Difficulty w/ Childcare or Family Care: Decline to Answer Living arrangements: with family Occupation/Education: occupation Gender identity (if verbalized by the patient): Female Sexual Orientation (if Verbalized by the Patient): Straight or Heterosexual Spiritual care concerns: No Comments At the time of my signature, I reviewed and agree with the nursing past medical, surgical, social, and family history. There is no relevant family history pertinent to the patient complaint. Exam Narrative: GENERAL: This is a well-nourished, well-developed adult, in no apparent distress. She is ill-appearing, nontoxic appearing. HEAD: normocephalic, atraumatic. EYES: Sclera clear/white. Vision is grossly intact. EARS: External ears normal, auditory canals clear and without drainage, TMs normal without perforation. Hearing grossly intact. NOSE: External nose normal with no obvious nasal discharge, nasal turbinates with erythema, no rhinorrhea. THROAT: Mucous membranes moist, posterior pharynx mild erythema, no exudate. Uvula midline NECK: Neck supple, non-tender without lymphadenopathy, masses or thyromegaly. CARDIOVASCULAR: Regular rate and rhythm without murmurs, gallops, or rubs. RESPIRATORY: Rhonchi present throughout the lungs. Breath sounds equal bilaterally. No wheezes or rales. SKIN: warm, Dry, intact with no suspicious lesions or rash, good texture and turgor. NEURO: awake, alert, and oriented to person, place and time. There were no obvious focal neurologic abnormalities. EXTREMITIES: No joint tenderness, effusion, or edema noted. BACK: Nontender without deformity Course Course Emergency Course: Patient is aware of diagnosis, understands and agrees to treatment plan. Anticipatory guidance given. Patient agrees to follow-up as directed and is aware of reasons to seek care at the emergency department. Portions of this record may have been created with voice recognition software Level of Care: Express Care Visit Vital Signs Vital signs: Vital Signs Temperature 98.9 F 09/11/24 10:11 Pulse Rate 106 H 09/11/24 10:11 Respiratory Rate 16 09/11/24 10:11 Blood Pressure 138/82 09/11/24 10:11 Pulse Oximetry 99 09/11/24 10:11 Oxygen Delivery Room Air 09/11/24 10:11 Temperature 98.9 F 09/11/24 10:11 Pulse Rate 106 H 09/11/24 10:11 Respiratory Rate 16 09/11/24 10:11 Blood Pressure 138/82 09/11/24 10:11 Pulse Oximetry 99 09/11/24 10:11 Oxygen Delivery Room Air 09/11/24 10:11 Reviewed MDM - URI/Sore Throat MDM Narrative Medical decision making narrative: Patient has tested positive for COVID today. Her influenza and rapid strep were negative. A throat culture will be sent off to test for group a strep. The patient is a half a pack a day smoker and has a history of chronic bronchitis. Given her history and her exam I will treat her empirically with doxycycline and a steroid pack for her chronic bronchitis. Her symptoms have persisted for at least 5 days. She does look ill appearing however she is not in any acute distress or having respiratory distress symptoms. Discussed physical exam findings. Advised supportive measures and signs/symptoms to go to the ER. Pt is appropriate for outpt treatment and f/u. Differential Diagnosis Differential diagnosis: Likely viral infection, bronchitis and other (COVID, pneumonia) Lab Data Attestation: I reviewed the patient's lab results. Labs: Lab Results 09/11/24 09/11/24 Range/Units 10:33 10:34 POC Influenza A Ag Negative (Negative) POC Influenza B Ag Negative (Negative) POC SARS CoV-2 Ag Positive (Negative) POC Grp A Strep Screen Negative (Negative) Critical Care Time Critical Care Time Critical Care Time: No Discharge Plan Discharge Clinical Impression: COVID, Bronchitis Patient Disposition: Home, Self-Care Condition: Stable Instructions: Antibiotic Form, COVID-19 (Coronavirus Disease 2019) (ED) Additional Instructions: You have been prescribed Doxycycline today. It may make your skin more sensitive to sunlight than normal. Make sure you wear sunscreen at all times when outside while on the medication. Please take the steroids as directed. Your COVID test was positive today. COVID can last 7-21 days. Your rapid strep swab was negative today at [facility]. You will be notified in a few days if the culture comes back positive for strep You may need to use Flonase as directed for congestion, you may also do saline rinses with a Neti pot or ocean spray to help loosen the mucus in your sinuses. You may take Tylenol or ibuprofen as directed for pain or fevers. Please follow-up with your primary care provider in 3-5 days. If you develop worsening shortness of breath, chest pain, unable to eat or drink, weakness or any other concerns please come to the emergency department for further evaluation. Patient Language: Bulgarian Prescriptions: New prednisone 20 mg tablet 40 mg PO DAILY 5 Days Qty: 10 0RF doxycycline monohydrate 100 mg capsule 100 mg PO BID 5 Days Qty: 10 0RF fluticasone propionate [Flonase Allergy Relief] 50 mcg/actuation spray,suspension 2 spray intranasal DAILY Qty: 1 0RF Rx Instructions: administer into each nostril No Action enoxaparin [Lovenox] 40 mg/0.4 mL syringe 40 mg subcut DAILY 42 Days Qty: 16.8 0RF Follow-up/Referrals: Summer,QUINTEN Cedeno [Primary Care Provider] - Time of Disposition: 10:51
== END 2024-09-11 11:00 | disposition home or self-care (01) ==
PROVIDERS: PCP Physician Assistant
DX: U07.1 COVID-19 (principal); J40 Bronchitis, not specified as acute or chronic; F17.210 Nicotine dependence, cigarettes, uncomplicated; K21.9 Gastro-esophageal reflux disease without esophagitis; J45.909 Unspecified asthma, uncomplicated
CPT/HCPCS: 87081; 87426; 87804; 87880; 99213; G0463

== ENCOUNTER 2024-10-04 21:22 | Emergency (ER) | payer OTHER, SELFPAY ==
--- NOTE | ~2024-10-04 | XR_ITS ---
Clinical Indication: Shortness of breath PA and lateral views of the chest: Comparison: 06/23/2024 Findings: The lungs are clear, without evidence of focal consolidation or pleural effusion. Cardiome diastinal silhouette is within normal limits. Bones and soft tissues are unremarkable. Impression: Normal chest. Reviewed, dictated and finalized at location . Impression: Normal chest.
--- OUTSIDE RECORDS SUMMARY | 2024-10-04 21:24 | XMS_ITS | Clinical Summary ---
Author Organization [facility] Address [address] [place] [address] Care Team Providers Care Scaler Name Role Phone Unavailable Primary Care Provider Unavailabl e Source Comments [facility],non-owned Affiliates and Associated Physician Practices is amultiple site organization consisting of ambulatory clinics and hospital sitesin [place], [place], [place]. This disclosure is being madepursuant to the Care Everywhere program and may not contain all information available regarding this patient. Last updated 18.[facility] Allergies Active Allergy Reactions Criticality Noted Date Comments Etodolac Unknown High 01/12/2009 Causes dehydration Medications * Be aware that medications may not be up to date on this document. Alwaysverify current medications with the patient. No known [...] alcohol) occ use. 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 on file Not on file Not on file Last Filed Vital Signs [...] VACCINE ( - 2023-2 5 season) 2024 DEPRESSION SCREENING 06/10/2024 INFLUENZA VACCINE (Season Ended) 2025 ZOSTER VACCINE (1 of 2) 2030 HIB VACCINE Aged Out No longer eligi ble based on patient's age to complete this topic HPV VACCINE Aged Out No longer eligi ble based on patient's age to complete this topic MENINGOCOCCAL (Group B) VACC INE SHARED DECISION-MAKING Aged Out No longer eligibl e based on patient's age to complete this topic MENINGOCOCCAL GROUPS A/C/Y/W VACCINE Aged Out No longer eligible b ased on patient's age to complete this topic Insurance MEDICAID - [place] SELF PAY NO INSURANCE Member Subscriber Plan / Payer (Ef fective for All Dates) Name:JacekFrancisco Member ID:Not on file Relation to Subscriber:Not on file Name:DOCFRANCISCO JAMA Subscriber ID:Not on file (Home) Address: [address] [place] [id number] Payer ID:Not on file Group ID:Not on file Type:Self Pay Address: [facility]
--- OUTSIDE RECORDS SUMMARY | 2024-10-04 21:24 | XMS_ITS | Clinical Summary ---
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
--- OUTSIDE RECORDS SUMMARY | 2024-10-04 21:24 | XMS_ITS ---
Author Organization [facility] Address [address] [place], [place] [id number] Care Team Providers Care Pipeline Executive Name Role Phone ALLENAntionette KALPESH Unavailable [phone] Pao Wheeler Unavailable Unavailable Allergies Allergen (clinical [...] Location Date Provider Diagnosis [facility] [address] [place], [place] [id number] 04/20/2024 KALPESH CAO Tinea pedis B35.3 ; [...] erythematous, pruritic, scales or erosions between toes. [place]-type tinea pedis affects the soles and medial [...] erythematous, pruritic, scales or erosions between toes. [place]-type tinea pedis affects the soles and medial [...] * PAYTON YAPMAAMEDOB:1980 ( 44 yo F)Acc No.[id number]:04/20/2024 Progress Notes Patient: FRANCISCO MILES Provider: Teddy Cao DPM :1980 A ge:44 Y S ex:Female Date:04/20/2024 Address:[address] [place] [address] Subjective: * Chief Complaints: * 1 . [...] History of tobacco use :. * Medications: N one * Allergies: I odine. Objective: * Vitals: [...] pain) * Billing Information: * Visit Code: 07121 Office Visit, Est Pt., Level 3. * Procedure Codes: * Electronic signature of KALPESH CAO DPM on 10/04/2024 at 09:24 PM CDT Sign off status: Pending * Provider: Teddy Cao DPM Date: 1 06/20/2023 Generated for Krystyna castellon/Wilner/Maral on: 0 10/04/2024 09:24 PM CDT History and Physical Notes * HPI (History [...]
--- OUTSIDE RECORDS SUMMARY | 2024-10-04 21:25 | XMS_ITS | Clinical Summary ---
Author Organization [facility] Address [facility] [place] [address] Care Team Providers Care Clarity Developer Name Role Phone Mimi Carrillo MD Primary Care Provider [phone] Allergies Active Allergy Reactions Criticality Noted Date Comments Etodolac Unknown High 01/12/2009 Causes dehydration Medications albuterol sulfate HFA (VENTOLIN HFA) 108 (90 Base) MCG/ACT inhaler 12/17/2016 Act lula vitamin D2, ergocalciferol, 82600 UNITS capsuleIndicatio ns:Low vitamin D level Take [...] 08/29/2015 Breast pain 02/10/2015 Cough variant asthma ([facility]) 12/23/2014 Piriformis syndrome 12/23/2014 Allergic rhinitis 09/21/2014 Seborrheic dermatitis 09/21/2014 Carpal tunnel syndrome 04/09/2014 IBS (irritable bowel syndrome) 02/18/2014 Fibromyalgia 02/18/2014 Obesity affecting , antepartum ([facility] ) 01/18/2009 Overview (07/24/2018): Overview: Previous delivery, antepartum condition or complication ([facility]) 01/18/2009 Resolved Problems Problem Noted Date Diagnosed Date Resolved Date Nausea 10/10/2017 09/17/2018 Cough 02/27/2017 09/17/2018 Flu-like symptoms 02/27/2017 09/17/2018 Flu vaccine need 03/12/2016 02/19/2020 Encounter for preventive health examination 02/15/2014 02/19/2020 Normal ([facility]) 06/08/2013 0 09/17/2018 with poor obstetri c history ([facility]) 01/18/2009 09/17/2018 Overview (07/24/2018): Overview: IMO Update 12/08/2016 Immunizations Immunization Administration Dates Next Due Influenza (Generic) 02/27/2017,03/12/2016 [...] on file 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 Gender Identity Not on file Sexual [...] Every 3 Years 1980 Annual Physical 1983 Hepatitis C 1998 Hepatitis B Vaccines (1 of 3 - 19+ 3-dose series) 1999 Pneumococcal Vaccine: Pediat rics (0 to 5 Years) and At-Risk Patients (6 to 49 Years) (1 of 2 - PCV) 1999 Cervical Cancer Screening Pa p with HPV Testing (Age 30 to 64) Every 5 Years 2010 Cervical Cancer Screening with HPV 2010 Mammogram Screening 2020 DTaP, Tdap and Td Vaccines ( 2 - Td or Tdap) 10/15/2023 10/14/2013 COVID-19 Vaccine (1 - 2023-2 5 season) 2024 HPV Vaccines Aged Out No longer eligi ble based on patient's age to complete this topic Meningococcal B Vaccine Aged Out No l onger eligible based on patient's age to complete this topic Meningococcal Vaccine Aged Out No myriam irasema eligible based on patient's age to complete this topic RSV Immunizations Under 20 Months Aged Out No longer eligible based on patient's age to complete this topic Insurance [facility] Care Teams Clarity Developer Relationship Specialty Start Date End Date Mimi Carrillo MD [address] [place] [address] PCP - General FAMILY PRACTICE 07/24/18
--- OUTSIDE RECORDS SUMMARY | 2024-10-04 21:25 | XMS_ITS | Data Portability ---
Author Organization [facility] [place] Address [address] [place] [address] Care Team Providers Care Port Traffic Manager Name Role Phone PAO AGGARWAL Primary Care Provider [phone] Assessment Encounter Date Assessment Date Assessment LastModified by Organization Details LastModified Time 08/05/2024 08/05/2024 Pt has total hysterectomy scheduled with Dr. Zamoarno at [facility] 08/05/24. [email or web address] Not available 08/05/2024 14:59:12 Plan of Treatment Reminders Order Date Submit Date Provider Last Modified By Organization Details Last Modified Time Details Appointments ANY 15 2024 03:30P M QUINTEN ALEXANDER Not available Not available Not available Lab CMP, serum or plasma 2024 025 YUSRA Warner, [address], [place], [address], 08/06/2024 10:15:25 lipid panel, serum or plasma 2024 025 YUSRA Warner, [address], [place], [address], 08/06/2024 10:15:24 CBC w/ auto diff 2024 025 YUSRA Warner, [address], [place], [address], 08/06/2024 10:15:27 TSH + free T4, serum 2024 025 YUSRA Warner, [address], [place], [address], 08/06/2024 10:15:23 HbA1c (hemoglob in A1c), blood 2024 025 [facility], [address], [place], [address], 08/06/2024 10:15:26 surgical pathology study 2023 024 [facility], [address], [address], [place], [address], 01/08/2024 14:34:14 magnesium , serum or plasma 2023 024 [facility], [address] [place] [address], [address], [place], [address], 11/15/2023 10:17:09 CMP, serum or plasma 2023 024 [facility], [address] [facility] [address] [facility] [address], [address], [place], [address], 11/15/2023 10:17:08 Referral podiatris t referral 2023 024 Derrek Campbell DPM, [address], [address], [place], [address], 04/23/2024 07:52:57 obstetric keiry and gynecolog ist referral 2023 024 [email or web address] Javan Zamorano, [address] [facility] [address] [facility] [address], [place], [address], 04/22/2024 07:55:49 Procedures None recorded. Surgeries None recorded. Imaging MAMMO, diagnosti c, bilateral 2023 024 [email or web address] [facility], [address], [place], [address], 04/15/2024 07:52:52 MAMMO, screening , bilateral [address] [facility], [address], [place], [address], 01/10/2024 07:56:54 US, axilla [address] (Imaging), [address] [facility] [address], [place], [address], 01/10/2024 07:56:53 Medication Orders albuterol sulfate 2.5 mg/3 mL (0.083 %) solution for nebulizat ion 2024 025 [facility], [address] [place], [address], 08/05/2024 08:33:54 albuterol sulfate HFA 90 mcg/actua tion aerosol inhaler 2024 025 [facility]25[facility], [address] [place], [address], 08/05/2024 08:33:54 beclometh asone diprop 40 mcg/actua tion HFA breath activated aerosol 2024 025 [facility] [address] [place], [address], 08/05/2024 08:48:47 tizanidin e 2 mg tablet 2023 025 [facility], [address] [facility], [place], [address], 08/05/2024 08:30:45 nicotine 14 mg/24 hr daily transderm al patch 2023 024 [facility], [address] [facility], [place], [address], 04/08/2024 16:01:57 malathion 0.5 % lotion 2023 024 [facility]25[facility], [address] [place], [address], 08/05/2024 08:30:32 beclometh asone diprop 40 mcg/actua tion HFA breath activated aerosol 2023 024 [facility], [address] [place], [address], 12/06/2023 17:02:45 cyclobenz aprine 5 mg tablet 2023 024 [facility], [address] [place], [address], 08/05/2024 08:30:23 ibuprofen 800 mg tablet 2023 024 [facility], [address] [place], [address], 11/13/2023 17:09:49 fluticaso ne propionat e 44 mcg/actua tion HFA aerosol inhaler 2023 024 [id number], [address], [place], [place], [id number], 12/06/2023 17:05:10 Patient TargetsNo targets recorded. 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 METAB OLIC PANEL (14) glucose 77 mg/dL 70-99 Not Available [facility] ([facility]) [address] [place], [address], 11/15/2023 10:17:08 11/13/19 24 11/15/2023 COMP. METAB OLIC PANEL (14) BUN 14 mg/dL 6-24 Not Available [facility] ([facility]) [address] [place], [address], 11/15/2023 10:17:08 11/13/19 24 11/15/2023 COMP. METAB OLIC PANEL (14) creatinine 1.13 mg/dL 0.57-1 .00 above high normal Not Available [facility] ([facility]) [address] [place], [address], 11/15/2023 10:17:08 11/13/19 24 11/15/2023 COMP. METAB OLIC PANEL (14) eGFR 62 mL/mi n/1.7 3 >59 Not Available [facility] ([facility]) [address] [place], [address], 11/15/2023 10:17:08 11/13/19 24 11/15/2023 COMP. METAB OLIC PANEL (14) BUN/creatini ne ratio 12 9-23 Not Available [facility] ([facility]) [address] [place], [address], 11/15/2023 10:17:08 11/13/19 24 11/15/2023 COMP. METAB OLIC PANEL (14) sodium 139 mmol/ L 134-14 4 Not Available [facility] ([facility]) [address] [facility] [place], [address], 11/15/2023 10:17:08 11/13/19 24 11/15/2023 COMP. METAB OLIC PANEL (14) potassium 4.3 mmol/ L 3.5-5. 2 Not Available [facility] ([facility]) [address] [facility] [place], [address], 11/15/2023 10:17:08 11/13/19 24 11/15/2023 COMP. METAB OLIC PANEL (14) chloride 101 mmol/ L 96-106 Not Available [facility] ([facility]) [address] [facility] [place], [address], 11/15/2023 10:17:08 11/13/19 24 11/15/2023 COMP. METAB OLIC PANEL (14) carbon dioxide, total 22 mmol/ L 20-29 Not Available [facility] ([facility]) [address] [facility] [place], [address], 11/15/2023 10:17:08 11/13/19 24 11/15/2023 COMP. METAB OLIC PANEL (14) calcium 8.9 mg/dL 8.7-10 .2 Not Available [facility] ([facility]) [address] [facility] [place], [address], 11/15/2023 10:17:08 11/13/19 24 11/15/2023 COMP. METAB OLIC PANEL (14) protein, total 6.6 g/dL 6.0-8. 5 Not Available [facility] ([facility]) [address] [facility] [place], [address], 11/15/2023 10:17:08 11/13/19 24 11/15/2023 COMP. METAB OLIC PANEL (14) albumin 3.9 g/dL 3.9-4. 9 Not Available [facility] ([facility]) [address] [facility], [place], [address], 11/15/2023 10:17:08 11/13/19 24 11/15/2023 COMP. METAB OLIC PANEL (14) globulin, total 2.7 g/dL 1.5-4. 5 Not Available [facility] ([facility]) [address] [facility], [place], [address], 11/15/2023 10:17:08 11/13/19 24 11/15/2023 COMP. METAB OLIC PANEL (14) A/G ratio 1.4 1.2-2. 2 Not Available [facility] ([facility]) [address] [facility], [place], [address], 11/15/2023 10:17:08 11/13/19 24 11/15/2023 COMP. METAB OLIC PANEL (14) bilirubin, total <0.2 mg/dL 0.0-1. 2 Not Available [facility] ([facility]) [address] [facility], [place], [address], 11/15/2023 10:17:08 11/13/19 24 11/15/2023 COMP. METAB OLIC PANEL (14) alkaline phosphatase 86 IU/L 44-121 Not Available [facility]) [address] [facility], [place], [address], 11/15/2023 10:17:08 11/13/19 24 11/15/2023 COMP. METAB OLIC PANEL (14) AST (SGOT) 14 IU/L 0-40 Not Available [facility] ([facility]) [address] [facility] [place], [address], 11/15/2023 10:17:08 11/13/19 24 11/15/2023 COMP. METAB OLIC PANEL (14) ALT (SGPT) 20 IU/L 0-32 Not Available [facility] ([facility]) [address] [facility], [place], [address], 11/15/2023 10:17:08 11/13/19 24 11/15/2023 MAGNE SIUM magnesium 2.1 mg/dL 1.6-2. 3 Not Available [facility] ([facility]) [address] [facility], [place], [address], 11/15/2023 10:17:09 01/03/20 24 01/08/2024 PATHO LOGY REPOR T . COMMALEX T Mater ial submi tted: . axill a - RIGHT AXILL A. Modif iers: right Not Available [facility] ([facility]) [address] [facility], [place], [address], 01/08/2024 14:34:14 01/03/20 24 01/08/2024 PATHO LOGY REPOR T . COMMALEX T Clini viv provi ded ICD-1 0: L91.8 Not Available [facility] ([facility]) [address] [facility], [place], [address], 01/08/2024 14:34:14 01/03/20 24 01/08/2024 PATHO LOGY REPOR T . COMMALEX T Diagn osis: FIBRO EPITH ELIAL POLYP . TMZ 01/07 0826 Local Not Available [facility] ([facility]) [address] [facility], [place], [address], 01/08/2024 14:34:14 01/03/20 24 01/08/2024 PATHO LOGY REPOR T . COMMEN T Jasson france d: . Donavon MD, [place] topat holog ist Not Available [facility] ([facility]) [address] [facility], [place], [address], 01/08/2024 14:34:14 01/03/20 24 01/08/2024 PATHO LOGY [...] MAY NOT SURVI VE PROCE SSING . /Nando RENTERIA 01/07 0826 Local Not Available [facility] ([facility]) [address] [facility], [place], [address], 01/08/2024 14:34:14 01/03/20 24 01/08/2024 PATHO LOGY REPOR T . COMMEN T Patho logis t provi ded ICD-1 0: L91.9 Not Available [facility] ([facility]) [address] [facility], [place], [address], 01/08/2024 14:34:14 01/03/20 24 01/08/2024 PATHO LOGY REPOR T . COMMEN T CPT . 71739 1 Not Available [facility] ([facility]) [address] [facility], [place], [address], 01/08/2024 14:34:14 02/26/20 25 08/06/2024 TSH+F REE T4 TSH 1.240 uIU/m L 0.450- 4.500 Not Available [facility] ([facility]) [address] [place], [address], 08/06/2024 10:15:23 08/05/19 25 08/06/2024 TSH+F REE T4 T4,free(dire ct) 1.30 NG/dL 0.82-1 .77 Not Available [facility] ([facility]) [address] [place], [address], 08/06/2024 10:15:23 08/05/19 25 08/06/2024 LIPID PANEL WITH LDL/H DL RATIO cholesterol, total 165 mg/dL 100-19 9 Not Available [facility] ([facility]) [address] [place], [address], 08/06/2024 10:15:24 08/05/19 25 08/06/2024 LIPID PANEL WITH LDL/H DL RATIO triglyceride s 154 mg/dL 0-149 above high normal Not Available [facility] ([facility]) [address] [place], [address], 08/06/2024 10:15:24 08/05/19 25 08/06/2024 LIPID PANEL WITH LDL/H DL RATIO HDL cholesterol 29 mg/dL >39 below low normal Not Available [facility] ([facility]) [address] [place], [address], 08/06/2024 10:15:24 08/05/19 25 08/06/2024 LIPID PANEL WITH LDL/H DL RATIO VLDL cholesterol mayte 28 mg/dL 5-40 Not Available [facility] ([facility]) [address] [place], [address], 08/06/2024 10:15:24 08/05/19 25 08/06/2024 LIPID PANEL WITH LDL/H DL RATIO LDL chol calc ([facility]) 108 mg/dL 0-99 above high normal Not Available [facility] ([facility]) [address] [place], [address], 08/06/2024 10:15:24 08/05/19 25 08/06/2024 LIPID PANEL WITH LDL/H DL RATIO LDL/HDL ratio 3.7 ratio 0.0-3. 2 above high normal LDL/H DL Ratio Men Women 1/2 Avg.R isk 1.0 1.5 Avg.R isk 3.6 3.2 2X Avg.R isk 6.2 5.0 3X Avg.R isk 8.0 6.1 Not Available [facility] ([facility]) [address] [place], [address], 08/06/2024 10:15:24 08/05/19 25 08/06/2024 COMP. METAB OLIC PANEL (14) glucose 91 mg/dL 70-99 Not Available [facility] ([facility]) [address] [place], [address], 08/06/2024 10:15:25 08/05/19 25 08/06/2024 COMP. METAB OLIC PANEL (14) BUN 9 mg/dL 6-24 Not Available [facility] ([facility]) [address] [place], [address], 08/06/2024 10:15:25 08/05/19 25 08/06/2024 COMP. METAB OLIC PANEL (14) creatinine 0.93 mg/dL 0.57-1 .00 Not Available [facility] ([facility]) [address] [place], [address], 08/06/2024 10:15:25 08/05/19 25 08/06/2024 COMP. METAB OLIC PANEL (14) eGFR 78 mL/mi n/1.7 3 >59 Not Available [facility] ([facility]) [address] [place], [address], 08/06/2024 10:15:25 08/05/19 25 08/06/2024 COMP. METAB OLIC PANEL (14) BUN/creatini ne ratio 10 9-23 Not Available [facility] ([facility]) [address] [place], [address], 08/06/2024 10:15:25 08/05/19 25 08/06/2024 COMP. METAB OLIC PANEL (14) sodium 141 mmol/ L 134-14 4 Not Available [facility] ([facility]) [address] [place], [address], 08/06/2024 10:15:25 08/05/19 25 08/06/2024 COMP. METAB OLIC PANEL (14) potassium 3.8 mmol/ L 3.5-5. 2 Not Available [facility] ([facility]) [address] [place], [address], 08/06/2024 10:15:25 08/05/19 25 08/06/2024 COMP. METAB OLIC PANEL (14) chloride 103 mmol/ L 96-106 Not Available [facility] ([facility]) [address] [place], [address], 08/06/2024 10:15:25 08/05/19 25 08/06/2024 COMP. METAB OLIC PANEL (14) carbon dioxide, total 23 mmol/ L 20-29 Not Available [facility] ([facility]) [address] [place], [address], 08/06/2024 10:15:25 08/05/19 25 08/06/2024 COMP. METAB OLIC PANEL (14) calcium 8.7 mg/dL 8.7-10 .2 Not Available [facility] ([facility]) [address] [place], [address], 08/06/2024 10:15:25 08/05/19 25 08/06/2024 COMP. METAB OLIC PANEL (14) protein, total 6.5 g/dL 6.0-8. 5 Not Available [facility] ([facility]) [address] [facility] [place], [address], 08/06/2024 10:15:25 08/05/19 25 08/06/2024 COMP. METAB OLIC PANEL (14) albumin 4.0 g/dL 3.9-4. 9 Not Available [facility] ([facility]) [address] [facility] [place], [address], 08/06/2024 10:15:25 08/05/19 25 08/06/2024 COMP. METAB OLIC PANEL (14) globulin, total 2.5 g/dL 1.5-4. 5 Not Available [facility] ([facility]) [address] [facility] [place], [address], 08/06/2024 10:15:25 08/05/19 25 08/06/2024 COMP. METAB OLIC PANEL (14) bilirubin, total 0.3 mg/dL 0.0-1. 2 Not Available [facility] ([facility]) [address] [facility] [place], [address], 08/06/2024 10:15:25 08/05/19 25 08/06/2024 COMP. METAB OLIC PANEL (14) alkaline phosphatase 88 IU/L 44-121 Not Available [facility]) [address] [facility] [place], [address], 08/06/2024 10:15:25 08/05/19 25 08/06/2024 COMP. METAB OLIC PANEL (14) AST (SGOT) 19 IU/L 0-40 Not Available [facility] ([facility]) [address] [facility] [place], [address], 08/06/2024 10:15:25 08/05/19 25 08/06/2024 COMP. METAB OLIC PANEL (14) ALT (SGPT) 25 IU/L 0-32 Not Available [facility] ([facility]) [address] [facility], [place], [address], 08/06/2024 10:15:25 08/05/19 25 08/06/2024 HEMOG LOBIN A1C hemoglobin A1C 5.2 % 4.8-5. 6 Predi abete s: 5.7 - 6.4 Diabe etienne: >6.4 Glyce zainab contr ol for adult s with diabe etienne: <7.0 Not Available [facility] ([facility]) [address] [place], [address], 08/06/2024 10:15:26 08/05/19 25 08/06/2024 CBC WITH DIFFE RENTI AL/PL ATELE T WBC 10.4 x10e3 /uL 3.4-10 .8 Not Available [facility] ([facility]) [address] [place], [address], 08/06/2024 10:15:27 08/05/19 25 08/06/2024 CBC WITH DIFFE RENTI AL/PL ATELE T RBC 5.27 x10e6 /uL 3.77-5 .28 Not Available [facility] ([facility]) [address] [place], [address], 08/06/2024 10:15:27 08/05/19 25 08/06/2024 CBC WITH DIFFE RENTI AL/PL ATELE T hemoglobin 16.7 g/dL 11.1-1 5.9 above high normal Not Available [facility] ([facility]) [address] [place], [address], 08/06/2024 10:15:27 08/05/19 25 08/06/2024 CBC WITH DIFFE RENTI AL/PL ATELE T hematocrit 50.0 % 34.0-4 6.6 above high normal Not Available [facility] ([facility]) [address] [place], [address], 08/06/2024 10:15:27 08/05/19 25 08/06/2024 CBC WITH DIFFE RENTI AL/PL ATELE T MCV 95 fL 79-97 Not Available [facility] ([facility]) [address] [facility], [place], [address], 08/06/2024 10:15:27 08/05/19 25 08/06/2024 CBC WITH DIFFE RENTI AL/PL ATELE T MCH 31.7 pg 26.6-3 3.0 Not Available [facility] ([facility]) [address] [facility], [place], [address], 08/06/2024 10:15:27 08/05/19 25 08/06/2024 CBC WITH DIFFE RENTI AL/PL ATELE T MCHC 33.4 g/dL 31.5-3 5.7 Not Available [facility] ([facility]) [address] [place], [address], 08/06/2024 10:15:27 08/05/19 25 08/06/2024 CBC WITH DIFFE RENTI AL/PL ATELE T RDW 13.0 % 11.7-1 5.4 Not Available [facility] ([facility]) [address] [facility], [place], [address], 08/06/2024 10:15:27 08/05/19 25 08/06/2024 CBC WITH DIFFE RENTI AL/PL ATELE T platelets 270 x10e3 /uL 150-45 0 Not Available [facility] ([facility]) [address] [facility], [place], [address], 08/06/2024 10:15:27 08/05/19 25 08/06/2024 CBC WITH DIFFE RENTI AL/PL ATELE T neutrophils 60 % notest ab. Not Available [facility] ([facility]) [address] [place], [address], 08/06/2024 10:15:27 08/05/19 25 08/06/2024 CBC WITH DIFFE RENTI AL/PL ATELE T lymphs 28 % notest ab. Not Available [facility] ([facility]) [address] [facility], [place], [address], 08/06/2024 10:15:27 08/05/19 25 08/06/2024 CBC WITH DIFFE RENTI AL/PL ATELE T monocytes 5 % notest ab. Not Available [facility] ([facility]) [address] [facility], [place], [address], 08/06/2024 10:15:27 08/05/19 25 08/06/2024 CBC WITH DIFFE RENTI AL/PL ATELE T eos 6 % notest ab. Not Available [facility] ([facility]) [address] [facility], [place], [address], 08/06/2024 10:15:27 08/05/19 25 08/06/2024 CBC WITH DIFFE RENTI AL/PL ATELE T basos 1 % notest ab. Not Available [facility] ([facility]) [address] [facility], [place], [address], 08/06/2024 10:15:27 08/05/19 25 08/06/2024 CBC WITH DIFFE RENTI AL/PL ATELE T neutrophils (absolute) 6.3 x10e3 /uL 1.4-7. 0 Not Available [facility] ([facility]) [address] [facility], [place], [address], 08/06/2024 10:15:27 08/05/19 25 08/06/2024 CBC WITH DIFFE RENTI AL/PL ATELE T lymphs (absolute) 2.9 x10e3 /uL 0.7-3. 1 Not Available [facility] ([facility]) [address] [facility], [place], [address], 08/06/2024 10:15:27 08/05/19 25 08/06/2024 CBC WITH DIFFE RENTI AL/PL ATELE T monocytes(ab solute) 0.5 x10e3 /uL 0.1-0. 9 Not Available [facility] ([facility]) [address] [place], [address], 08/06/2024 10:15:27 08/05/19 25 08/06/2024 CBC WITH DIFFE RENTI AL/PL ATELE T eos (absolute) 0.6 x10e3 /uL 0.0-0. 4 above high normal Not Available [facility] ([facility]) [address] [facility], [place], [address], 08/06/2024 10:15:27 08/05/19 25 08/06/2024 CBC WITH DIFFE RENTI AL/PL ATELE T baso (absolute) 0.1 x10e3 /uL 0.0-0. 2 Not Available [facility] ([facility]) [address] [place], [address], 08/06/2024 10:15:27 08/05/19 25 08/06/2024 CBC WITH DIFFE RENTI AL/PL ATELE T immature granulocytes 0 % notest ab. Not Available [facility] ([facility]) [address] [place], [address], 08/06/2024 10:15:27 08/05/19 25 08/06/2024 CBC WITH DIFFE RENTI AL/PL ATELE T immature grans (abs) 0.0 x10e3 /uL 0.0-0. 1 Not Available [facility] ([facility]) [address] [place], [address], 08/06/2024 10:15:27 11/07/19 24 11/06/2023 XR, chest , 2 view No observ ation record ed. [facility] [address], [place], [address], 11/12/2023 10:39:15 11/15/19 24 11/15/2023 CT, abdom en + pelvi s, w/ contr ast No observ ation record ed. [address], [place], [address], 11/15/2023 15:51:03 01/22/20 24 01/22/2024 US, axill a No observ ation record ed. [address], [place], [address], 01/22/2024 16:37:59 04/24/20 24 04/24/2024 MAMMO , diagn ostic , bilat eral No observ ation record ed. [facility] [address], [place], [address], 04/27/2024 12:11:37 05/25/20 24 05/24/2024 XR, chest , 2 view No observ ation record ed. [email or web address] [address], [place], [address], 05/26/2024 09:16:27 06/18/19 25 06/18/2024 XR, chest , 2 view No observ ation record ed. [address] [address], [place], [address], 07/14/2024 17:10:15 06/24/19 25 06/23/2024 imagi ng/di agnos tic resul t No observ ation record ed. [address], [place], [address], 07/22/2024 10:42:57 08/07/19 25 08/07/2024 US, duple x, venou s, extre mity, compl ete No observ ation record ed. [address] [address], [place], [address], 08/07/2024 14:00:21 Result Notes None recorded. Problems Name Problem SNOMED Code Status Onset Date Resolution Date Notes Provider Name and Address Organization Details Recorded Time Anemia 727937940 Active Ewa Esqueda MA null, [place] [facility] 5 10:50:39 Fibromyalgia 215143195 Active 2022 Priya Griffiths [place] null, [place] [facility] 3 15:21:52 Mild intermittent asthma 646992119 Active 2022 QUINTEN ALEXANDER Attn: Accountvanessa wheatley,[address] [facility], [place], [address], [place] [facility] 3 12:38:16 Vitamin D deficiency 42524136 Active 2022 QUINTEN ALEXANDER Attn: Accountvanessa g,[address] [facility], [place], [address], [place] [facility] 3 12:38:21 Smoker 45836535 Active 2022 QUINTEN ALEXANDER Attn: Accountvanessa g,[address] [facility], [place], [address], [place] [facility] 3 12:38:19 Obesity 038399283 Active 2022 QUINTEN ALEXANDER Attn: Patric g,[address] [facility], [place], [address], [place] [facility] 3 12:38:18 Diverticulitis of sigmoid colon 916571761 Active 2023 QUINTEN ALEXANDER Attn: Patric wheatley,[address] [facility], [place], [address], [place] [facility] 4 17:13:57 Notes:Some problems listed i n Document: #[id number] could not be added to this patient's chart. Please review this document and add these problems to the patient's chart manually as needed. Problem Notes None recorded. Procedures Surgical History Date Name Laterality Status Provider Name and Address Organization Details Recorded Time 4 Skin Tag Removal completed QUINTEN ALEXANDER Attn: Accounting,[address] [facility], [place], [address], [place] [facility] 01/03/2024 17:06:14 7 endometrial ablation completed QUINTEN ALEXANDER Attn: Accounting,[address] [facility], [place], [address], [place] [facility] 03/12/2023 15:34:16 4 section completed QUINTEN ALEXANDER Attn: Accounting,[address], [place], [address], [facility] - [facility] 01/03/2024 16:49:30 4 ligation of fallopian tube completed QUINTEN ALEXANDER Attn: Accounting,[address], [place], [address], [place] [facility] 01/03/2024 16:49:55 9 Caesarean Section completed Ewa Esqueda [place] - [facility] 08/04/2014 10:50:39 0 Caesarean Section completed Ewa Esqueda [place] - [facility] 08/04/2014 10:50:39 Imaging Results Imaging Date Name Status LastModified by Organ atlevine [facility] Details LastModified Time 11/06/2023 XR, chest, 2 view completed [address], [address], 11/12/2023 10:39:15 11/15/2023 CT, abdomen + pelvis, w/ contrast completed [address], [address], 11/15/2023 15:51:03 01/22/2024 US, axilla completed [address], [address], 01/22/2024 16:37:59 04/24/2024 MAMMO, diagnostic, bilateral completed [facility] [address], [place], [address], 04/27/2024 12:11:37 05/24/2024 XR, chest, 2 view completed [address] [place] [address], [address], 05/26/2024 09:16:27 06/18/2024 XR, chest, 2 view completed [place] [address], [place], [address], 07/14/2024 17:10:15 06/23/2024 imaging/diagno stic result completed [place] [address] [facility] [address], [place], [address], 07/22/2024 10:42:57 08/07/2024 US, duplex, venous, extremity, complete completed [place] [address] [facility] [address], [place], [address], 08/07/2024 14:00:21 Procedure Notes None recorded. Medical Equipment None Reported. Allergies Allergen ID Allergen Name Allergen Category Reaction Reaction Severity Criticality Documentation Date Start Date Code Code System Note Provider Name and Address Organization Details Recorded Time 02972 Lodine medicatio n other severe Not available [...] mL (0.083 %) solution for nebulizatio n INHALE 3 ML 3 TIMES A DAY BY NEBULIZAT ION ROUTE NEEDED FOR 30 DAYS, FOR ASTHMA. active Not Available Not Available No t Available azithromyci n 250 mg tablet TAKE 2 [...] completed Not Available Not Available Not Available oxycodone-a cetaminophe n 5 mg-325 mg tablet TAKE 1 TABLET BY MOUTH EVERY 6 HOURS NEEDED FOR PAIN active Not Available Not Available No t Available malathion 0.5 % lotion APPLY TO [...] Not Available Not Available Not Available ibuprofen 600 mg tablet TAKE 1 TABLET BY MOUTH EVERY 6 HOURS NEEDED FOR PAIN active Not Available Not Available No t Available albuterol sulfate HFA 90 mcg/actuati on aerosol inhaler INHALE 2 PUFFS INTO THE LUNGS EVERY 4 TO 6 HOURS NEEDED active Not Available Not Available No t Available ondansetron 4 mg disintegrat ing tablet DISSOLVE [...] completed Not Available Not Available Not Available enoxaparin 40 mg/0.4 mL subcutaneou s syringe INJECT 40 MG (0.4 ML) SUBCUTANE OUSLY DAILY FOR 6 WEEKS active Not Available Not Available No t Available cyclobenzap rine 5 mg tablet TAKE 1 TABLET BY MOUTH TWICE DAILY FOR 14 DAYS NEEDED FOR BACK SPASM 08/05 completed Not Available Not Available Not Available Senexon-S 8.6 mg-50 mg tablet TAKE 1 TABLET BY MOUTH AT BEDTIME active Not Available Not Available No t [...] 4 154.94 cm 16 /min 36.7 kg/m2 69237.0 2 g 98 % 98 % 94 /min 115 mm[Hg] 82 mm[Hg] Priya Griffiths MA [facility] 4 16:51:49 Date Recorded Body height Body mass index (BMI) Body weight Oxygen saturation Oxygen saturation in Arterial blood by Pulse oximetry Heart rate Respiratory rate Systolic blood pressure Diastolic blood pressure Provider Name and Address Organization Details Last Updated DateTime 4 154.94 cm 36.7 kg/m2 42774.6 2 g 99 % 99 % 81 /min 18 /min 123 mm[Hg] 86 mm[Hg] SIGRID Pat[facility] 4 16:39:20 Date Recorded Body height Body mass index (BMI) Body weight Oxygen saturation Oxygen saturation in Arterial blood by Pulse oximetry Heart rate Respiratory rate Systolic blood pressure Diastolic blood pressure Provider Name and Address Organization Details Last Updated DateTime 4 154.94 cm 37.1 kg/m2 01005.2 g 97 % 97 % 97 /min 16 /min 121 mm[Hg] 85 mm[Hg] Priya Griffiths MA [facility] 4 16:34:46 Date Recorded Body height Body mass index (BMI) Body weight Oxygen saturation Oxygen saturation in Arterial blood by Pulse oximetry Heart rate Respiratory rate Systolic blood pressure Diastolic blood pressure Provider Name and Address Organization Details Last Updated DateTime 4 154.94 cm 37.5 kg/m2 40885.0 9 g 99 % 99 % 95 /min 16 /min 111 mm[Hg] 78 mm[Hg] Monserrat Mcmahon MA [facility] 4 15:50:46 Date Recorded Body height Body mass index (BMI) Body weight Oxygen saturation Oxygen saturation in Arterial blood by Pulse oximetry Heart rate Respiratory rate Systolic blood pressure Diastolic blood pressure Provider Name and Address Organization Details Last Updated DateTime 5 154.94 cm 38.8 kg/m2 95333.2 4 g 97 % 97 % 77 /min 16 /min 134 mm[Hg] 88 mm[Hg] Priya Griffiths [place] [facility] 08:25:20 Social History Question Answer Notes LastModified by Organizat ion Details LastModified Time Tobacco Smoking Status Current Every Day Smoker Ewa Esqueda MA null, [place] [facility] 08/04/2014 10:50:39 What Is Your Level Of Alcohol Consumption? Occasional [email or web address] Information not available 03/12/2023 What Is Your Level Of Caffeine Consumption? Occasional [email or web address] Information not available 08/04/2014 What Type Of Diet Are You Following? REGULAR [email or web address] Information not available 08/04/2014 Education 12 [email or web address] Information no t available 08/04/2014 What Was The Date Of Your Most Recent Tobacco Screening? 08/05/2024 [email or web address] Information not available 08/05/2024 Seat Belts Used Routinely Yes [email or web address] Information not available 08/04/2014 How Much Tobacco Do You Smoke? 0.5 PPD Information not available 08/04/2014 Has Tobacco Cessation Counseling Been Provided? Yes [email or web address] Information not available 03/12/2023 On What Date Was Tobacco Cessation Counseling Provided? 08/05/2024 [email or web address] Information not available 08/05/2024 How Many Years Have You Smoked Tobacco? 16 [email or web address] Information not available 08/04/2014 Sex: Unknown Functional Status None recorded. Mental Status None recorded. Family History Relationship Description Onset Age of this Age Resolved Age Notes LastModified by Organization Details LastModified Time Mother Hypertensive disorder Not available 2014 10:26:18 Mother Diabetes mellitus Not available 2014 10:26:18 Mother Kidney disease [email or web address] Not available 2014 10:26:18 Medical History Condition Response Heart Problems N Other N Breast Cancer N Kidney or Bladder Problems N Thyroid Problems N GI Problems N Lung Disease N Depression N Acne N Breast Problem N Eating Disorder N Anemia Y Anesthesia Complications N Headaches/Migraines Y Anxiety Disorder N Ovarian Cancer N Diabetes N Blood Transfusions N Arthritis N Infertility N Polyps N [...] SNOMED-CT Code Diagnosis ICD10 Code Diagnosis Note [id number] DO Johnson Good [facility] ([facility]) [address] [place] [address] 08/04/2014 09:45:08 08/04/2014 15:25:51 Pain in pelvis 73529148 [id number] YESI Lawson NP [facility] [address] [place] [address] 06/17/2018 11:25:42 06/17/2018 13:11:06 Vitamin D deficiency 99040338 E55.9 -Check Vit D level Pain of le ft hip joint 3857564272 31363 M25.552 -Obtain x-ray left hip-Naprox en prn-Contin ue conservati ve tx- ice, heat, rest, stretching -F/u prn Asthma 905905758 J45.90 9 -Renew ventolin Gastroesop hageal reflux disease 656013550 K21.9 -Renew ranitidine Sacral back pain 2808721 3 M54.5 -Obtain x-ray sacrum-Nap roxen prn -Continue conservati ve tx- ice, heat, rest, stretching -F/u prn Body mass index 30+ - obesity 349850141 Z68.37 -Obtain labs Pain in toe 175565890 M7 9.674 -Obtain labs-R/o gout, infection [id number] QUINTEN ALEXANDER [facility] [address] [place] [address] 03/12/2023 15:16:54 03/12/2023 16:10:11 Smoker 97249740 F17.200 1/2 ppdcutting back Depression screening 171 001339 Z13.31 PHQ 2 Screening for malignant neoplasm of cervix 483105589 Z12.4 vaginal spotting x1 yr, spots for 1-2 days then stopsprevi ously establishe d with [facility] [employer]- couldn't figure out why she was passing clots, softball size, told that her endometriu m was normaldiag nosed with PCOSh/o endometria l ablationre shayne to [facility] Screening for malignant neoplasm of breast 137802756 Z12.39 has never had mammogram Obesity 303269608 E66.9 discussed increasing exercise and healthier food options, high protein, low fat diet Loss of hair 195277883 L 65.9 x10 yrsconcern ed for thyroid issueshas not tried any meds for hair growthchec k TSH, can add on antibodies Mild inter mittent asthma 221824131 J45.20 refill Vitamin D deficiency 347 85617 E55.9 re-check Bacterial upper respiratory infection 702912123 A49.9 x1 wkcough, congestion , headaches, rhinorrhea [...] if not or on SSRI antidepres sants. [id number] QUINTEN ALEXANDER [facility] [address] [place] [address] 11/13/2023 16:40:10 11/13/2023 17:08:11 Mild intermittent asthma 484438573 J45.20 went to ED 1 wk ago due to SOB, no improvemen t with albuterolb reathing treatment, CXR nl, finished prednisone and augmentin w/ improvemen tPEx- nltrial ICSf/u in 1 mo Hypokalemia 72653290 E87 .6 low in ED, will re-check Hypomagnesemia 369123016 E83.42 low in ED, will re-checkta joel magnesium supplement 200 mg Spasm of back muscles 20 2797322 M62.830 since potassium IVlow back crampingPE x- mild TTP L upper trapezius muscletria l flexeril and ibuprofen Depression screening 171 493392 Z13.31 PHQ 0 [id number] QUINTEN ALEXANDER [facility] [address] [place] [address] 12/06/2023 16:33:06 12/06/2023 17:10:33 Diverticulitis of sigmoid colon 059118229 K57.32 diagnosed with acute sigmoid diverticul itis on 11/15/23 per EDput on flagyl and cipro w/ improvemen t of sxstates that she ate popcorn prior to onset on sxPEx- nldiscusse d symptoms and what foods to avoid to prevent flare Mild inter mittent asthma 582447789 J45.20 12/06/23: insurance will not cover flovent, will trial Qvar redihaler 11/13/23:molly t to ED 1 wk ago due to SOB, no improvemen t with albuterolb reathing treatment, CXR nl, finished prednisone and augmentin w/ improvemen tPEx- nltrial ICSf/u in 1 mo Depression screening 171 756665 Z13.31 PHQ 0 [id number] QUINTEN ALEXANDER [facility] [address] [place] [address] 01/03/2024 16:27:50 01/03/2024 17:00:23 Mass of axilla 078203305 R22.2 x2 wkscomes and goescan be painfulPEx - 1 cm x 2 cm nodule to L axilla, freely mobile, non-TTPord ered US bilateral Screening for malignant neoplasm of breast 343804341 Z12.39 has never had mammogram Skin tag 903363842 L91.8 to R axillaremo bessy without difficulty sent for pathology Pediculosis capitis 8100 0006 B85.0 daughter with liceno relief with permethrin , [facility] [id number] QUINTEN ALEXANDER [facility] [address] [place] [address] 04/08/2024 15:41:41 04/08/2024 16:18:22 Depression screening 385572993 Z13.31 PHQ 0 Smoker 47292386 F17.200 1/2 ppd, cutting back on her ownfor 30 yrstrial nicotine patches Spasm of back muscles 20 3935969 M62.830 04/08/24: muscle cramps to mid back, legs, feet x3 mocutting back on soda, increasing fluid intake and foods high in potassiume ncouraged stretching daily and heating padflexeri l made her feel sleepy, can trial lower dose of tizanidine 11/13/23: since potassium IVlow back crampingPE x- mild TTP L upper trapezius muscletria l flexeril and ibuprofen Pain in right foot 53397 75933 83558 M79.671 R MTP jointinter mittent, can swell and painful with walking in certain shoesPEx- nlrefer to podiatry Screening for malignant neoplasm of cervix 637531986 Z12.4 04/08/24: printed off referral and encouraged pt to call to schedule appt 03/12/23: vaginal spotting x1 yr, spots for 1-2 days then stopsprevi ously establishe d with [employer]- couldn't figure out why she was passing clots, softball size, told that her endometriu m was normaldiag nosed with PCOSh/o endometria l ablationre shayne to [facility] Screening for malignant neoplasm of breast 896619302 Z12.39 has never had mammogram [id number] QUINTEN ALEXANDER [facility] [address] [place] [address] 08/05/2024 08:22:32 08/05/2024 08:41:52 Mild intermittent asthma 082355932 J45.20 08/05/24: has not been using Qvar, couldn't avoid itsent new script and neb solution 12/06/23: insurance will not cover flovent, will trial Qvar redihaler 11/13/23:molly t to ED 1 wk ago due to SOB, no improvemen t with albuterolb reathing treatment, CXR nl, finished prednisone and augmentin w/ improvemen tPEx- nltrial ICSf/u in 1 mo Smoker 26440903 F17.200 1/2 ppd, cutting back on her ownfor 30 yrsno relief with nicotine patches Obesity 800063511 E66.9 BMI 38.8discus sed increasing exercise and healthier food options, high protein, low fat diet Depression screening 171 829709 Z13.31 PHQ 3 Health Concerns Section Related Observation LastModified by Organization Detai ls LastModified Time None Recorded Concern Status LastModified by Organization Details LastModified Time None Recorded Advance Directives Directive None Recorded Payers Encounter Date Sequence Insurance Name Policy Number Policy Karimi Covered Member ID Karimi Member ID Guarantor Name 11/13/2023 1 [facility] [id number] Silke M Bussa [id number] [facility] Bussa 11/13/2023 2 [facility] - DOS ON OR AFTER 20 (MEDICAID REPLACEMENT - HMO) Silke Bussa [id number] Silke Bussa 12/06/2023 1 [facility] [id number] Silke M Bussa [id number] Silke Bussa 12/06/2023 2 [place] [facility] Silke Bussa [id number] Silke Bussa 01/03/2024 1 [facility] [id number] Silke M Bussa [id number] Silke Bussa 01/03/2024 2 [place] [facility] Silke Bussa [id number] Silke Bussa 04/08/2024 1 [facility] [id number] Silke M Bussa [id number] Silke Bussa 04/08/2024 2 [place] [facility] Silke Bussa [id number] Silke Bussa 08/05/2024 1 [facility] [id number] Silke M Bussa [id number] Silke Bussa 08/05/2024 2 [place] Silke Bussa [id number] Silke Bussa Notes Date Note Type Note [...] her skin. QUINTEN ALEXANDER Attn: Accounting,[address] [facility], [place], [address], [facility] 11/17/2023 16:18:45 12/06/2023 text/html Pt presents for ED f/u. Reports three wks ago, she developed nausea, stomach pain, and blood in stool x2 days. States that she went to ED, diagnosed with diverticulitis and discharged home on 2 antibiotics w/ improvement. Endorses that she ate popcorn prior to onset of symptoms. QUINTEN ALEXANDER Attn: Accounting,[address] [facility], [place], [address], [facility] 12/10/2023 17:15:42 01/03/2024 text/html Pt presents for skin tag removal. QUINTEN ALEXANDER Attn: Accounting,[address] [facility], [place], [address], [place] [facility] 01/03/2024 17:09:55 04/08/2024 text/html Pt presents to discuss muscle spasms, quitting smoking, R foot pain, and [facility] referral.C/o muscle cramping to her back, legs, and feet for the past 3 moths. Calf and foot cramping is worse at night. She has been cutting back on her soda intake, drinking more water, and eating foods high in potassium. QUINTEN ALEXANDER Attn: Accounting,[address] [facility], [place], [address], [place] [facility] 04/10/2024 09:36:25 08/05/2024 text/html Pt presents for [...] neb solution. QUINTEN ALEXANDER Attn: Accounting,[address] [facility], [place], [address], [facility] 08/05/2024 14:59:33 OBGyn Episode No OBEpisode recorded.
--- OUTSIDE RECORDS SUMMARY | 2024-10-04 21:25 | XMS_ITS | Patient Health Record ---
Author Organization [facility] Address [address] [facility] [address] [place], [place] [id number] Care Team Providers Care Research Center Director Name Role Phone KALPESH DELUNA Unavailable [phone] Pao Wheeler Unavailable Unavailable Allergies Allergen (clinical drug ingredient) Drug/Non Drug Allergy documented on EMR Reaction Allergy Type Onset Date Status Iodine Unknown Drug Allergy Active Reason For Referral No Information Medications Medication SIG (Take, Route, Frequency, Duration) Notes Start Date End Date Status Clotrimazole-Betamet hasone 1-0.05 % 1 application Externally Twice a day one tube, 30g or similar 04/20/2024 Active Immunizations Vaccine Route Administration Date Status Comme nts Influenza, high dose seasonal Unknown 08/25/2024 Admini stered Pneumococcal conjugate PCV 13 Unknown 08/25/2024 Admini stered Vital Signs Weight-kg 86.18 kg 05/04/2024 Weight 190 lbs 05/04/2024 Encounters Encounter Location Date Provider Diagnosis [facility]man Ghanshyam [address] [place] [id number] 04/20/2024 KALPESH SNLYDIAK Tinea pedis B35.3 ; Hallux rigidus, right foot M20.21 ; Primary osteoarthritis, right ankle and foot M19.071 and Pain in right foot M79.671 [facility] Harman Ghanshyam [address] [place], [place] [id number] 05/04/2024 KALPESH SNLYDIAK Tinea pedis B35.3 ; [...] erythematous, pruritic, scales or erosions between toes. [place]-type tinea pedis affects the soles and medial [...] Insured Coverage Start Date Coverage End Date [facility] [address] [address] [place] [id number] FRANCISCO YAP Self - patient is the insured Medical (General) History Medical History History ICD Code acid reflux fibromyalgia Asthma/Bronchitis Leg/Feet cramps restless leg syndrome
--- OUTSIDE RECORDS SUMMARY | 2024-10-04 21:25 | XMS_ITS ---
Author Organization [facility] Address [address] [place], [place] [id number] Care Team Providers Care Solar Site Assessment Specialist Name Role Phone ALLENAntionette KALPESH Unavailable [phone] Pao Wheeler Unavailable Unavailable Allergies Allergen (clinical [...] one tube, 30g or similar 04/20/2024 Active Vital Signs Weight 190 lbs 05/04/2024 Weight-kg 86.18 kg 05/04/2024 Encounters Encounter Location Date Provider Diagnosis [facility] [place] [address] [place], [place] [id number] 05/04/2024 KALPESH CAO Tinea pedis B35.3 ; [...] * FRANCISCO YAPDOB:1980 ( 44 yo F)Acc No.[id number]:05/04/2024 Patient: FRANCISCO MILES Provider: Teddy Cao DPM :1980 A ge:44 Y S ex:Female Date:05/04/2024 Address:[address] [place] [address] Subjective: * Chief Complaints: * 1 . The patient is very happy with how well the topical medication cleared up her fungal skin. The cracks and splits between the toes went away. There is still some scaling, but very mild.. 2. She has not had a chance to wear the inserts for her great toe joint pain, as she is in the process of getting new shoes and wants to do this all at once. * HPI: H PI: Follow Up Visit [...] of tobacco use :. * Medications: T aking Clotrimazole-Betamethasone 1-0.05 % Cream 1 application Externally Twice a day , Notes to Pharmacist: one tube, 30g or similar, Medication List reviewed and reconciled with the patient * Allergies: I odine. Objective: * Vitals: W t:190lbs, Wt-k.18 kg. * Examination: C onstitutional: Constitutional T he [...] supportive shoes and wear her inserts * Immunizations: Immunization record has been reviewed and updated. * Follow Up: p rn * Billing Information: * Visit Code: 01987 Office Visit, Est Pt., Level 3. * Procedure Codes: * Sign off status: Completed true * Provider: Teddy Cao DPM Date: 07/04/2023 Generated for Krystyna castellon/Wilner/Maral on: 0 10/04/2024 09:25 PM CDT History and Physical Notes * [...]
[2024-10-04 21:26] VITALS: BP 135/86; PULSE 111; RESP 20; TEMP 37.1; O2SAT 96
[2024-10-05] VITALS (8 sets, daily range): BP systolic 116–118; BP diastolic 64–89; PULSE 78–95; RESP 16–20; O2SAT 95–97
[2024-10-05] MEDS: predniSONE 20 MG TABLET 60 MG PO (01:45)
--- OUTSIDE RECORDS SUMMARY | 2024-10-05 01:48 | XMS_ITS | Clinical Summary ---
Author Organization [facility] [employer] Address [address] [facility] [place] [address] Care Team Providers Care Showroom Sales Consultant Name Role Phone Unavailable Primary Care Provider Unavailabl e Source Comments [facility] [employer]non-owned Affiliates and Associated Physician Practices is amultiple site organization consisting of ambulatory clinics and hospital sitesin [place], [place] and [place]. This disclosure is being madepursuant to the Care Everywhere program and may not contain all information available regarding this patient. Last updated 18.[employer] 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
--- OUTSIDE RECORDS SUMMARY | 2024-10-05 01:48 | XMS_ITS | Clinical Summary ---
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
--- OUTSIDE RECORDS SUMMARY | 2024-10-05 01:48 | XMS_ITS ---
Author Organization [facility] Address [address] [place], [place] [id number] Care Team Providers Care Vehicle Glass Technician Name Role Phone ALLENAntionette KALPESH Unavailable [phone] Pao Wheeler Unavailable Unavailable Allergies Allergen (clinical [...] Location Date Provider Diagnosis [facility] [place] [address] [place], [place] [id number] 04/20/2024 KALPESH CAO Tinea pedis B35.3 ; [...] erythematous, pruritic, scales or erosions between toes. [place]-type tinea pedis affects the soles and medial [...] erythematous, pruritic, scales or erosions between toes. [place]-type tinea pedis affects the soles and medial [...] * PAYTON YAPMAAMEDOB:1980 ( 44 yo F)Acc No.[id number]:04/20/2024 Progress Notes Patient: FRANCISCO MILES Provider: Teddy Cao DPM :1980 A ge:44 Y S ex:Female Date:04/20/2024 Address:[address] [place] [address] Subjective: * Chief Complaints: * 1 . [...] pain) * Billing Information: * Visit Code: 53034 Office Visit, Est Pt., Level 3. * Procedure Codes: * Electronic signature of KALPESH CAO DPM on 10/05/2024 at 01:48 AM CDT Sign off status: Pending * Provider: Teddy Cao DPM Date: 1 06/20/2023 Generated for Krystyna castellon/Wilner/Maral on: 0 10/05/2024 01:48 AM CDT History and Physical Notes * HPI [...]
--- OUTSIDE RECORDS SUMMARY | 2024-10-05 01:48 | XMS_ITS | Clinical Summary ---
Author Organization [facility] Address [facility] [place] [address] Care Team Providers Care Director Business Systems Name Role Phone Mimi Carrillo MD Primary Care Provider [phone] Allergies Active Allergy Reactions Criticality Noted Date Comments Etodolac Unknown High 01/12/2009 Causes dehydration Medications albuterol sulfate HFA (VENTOLIN HFA) 108 (90 Base) MCG/ACT inhaler 12/17/2016 Act lula vitamin D2, ergocalciferol, 77536 UNITS capsuleIndicatio ns:Low vitamin D level Take [...] 08/29/2015 Breast pain 02/10/2015 Cough variant asthma ([facility]) 12/23/2014 Piriformis syndrome 12/23/2014 Allergic rhinitis 09/21/2014 Seborrheic dermatitis 09/21/2014 Carpal tunnel syndrome 04/09/2014 IBS (irritable bowel syndrome) 02/18/2014 Fibromyalgia 02/18/2014 Obesity affecting , antepartum ([facility] ) 01/18/2009 Overview (07/24/2018): Overview: Previous delivery, antepartum condition or complication ([facility]) 01/18/2009 Resolved Problems Problem Noted Date Diagnosed Date Resolved Date Nausea 10/10/2017 09/17/2018 Cough 02/27/2017 09/17/2018 Flu-like symptoms 02/27/2017 09/17/2018 Flu vaccine need 03/12/2016 02/19/2020 Encounter for preventive health examination 02/15/2014 02/19/2020 Normal ([facility]) 06/08/2013 0 09/17/2018 with poor obstetri c history ([facility]) 01/18/2009 09/17/2018 Overview (07/24/2018): Overview: IMO [...] on file Legal Sex Female 2:59 PM [employer] Gender Identity Not on file Sexual Orientation [...] patient's age to complete this topic Insurance [facility] Care Teams Director Business Systems Relationship Specialty Start Date End Date Mimi Carrillo MD [address] [place] [address] PCP - General FAMILY PRACTICE 07/24/18
--- OUTSIDE RECORDS SUMMARY | 2024-10-05 01:49 | XMS_ITS | Patient Health Record ---
Author Organization [facility] Address [address] [facility] [address] [place], [place] [id number] Care Team Providers Care Cigar Bander Hand Name Role Phone KALPESH DELUNA Unavailable [phone] Pao Wheeler Unavailable Unavailable Allergies Allergen (clinical [...] Location Date Provider Diagnosis [facility] [place] Ghanshyam [address] [place] [id number] 04/20/2024 KALPESH SNLYDIAK Tinea pedis B35.3 ; Hallux rigidus, right foot M20.21 ; Primary osteoarthritis, right ankle and foot M19.071 and Pain in right foot M79.671 [facility] [place] [address] [place], [place] [id number] 05/04/2024 KALPESH SNLYDIAK Tinea pedis B35.3 ; [...] erythematous, pruritic, scales or erosions between toes. [place]-type tinea pedis affects the soles and medial [...] Insured Coverage Start Date Coverage End Date [facility] [address] [address] [place] [id number] FRANCISCO YAP Self - patient is the insured Medical (General) History Medical History History ICD Code acid reflux fibromyalgia Asthma/Bronchitis Leg/Feet cramps restless leg syndrome
--- OUTSIDE RECORDS SUMMARY | 2024-10-05 01:49 | XMS_ITS ---
Author Organization [facility] Address [address] [place], [place] [id number] Care Team Providers Care Chef Teacher Name Role Phone ALLENAntionette KALPESH Unavailable [phone] Pao Wheeler Unavailable Unavailable Allergies Allergen (clinical [...] Location Date Provider Diagnosis [facility] [place] [address] [place], [place] [id number] 05/04/2024 KALPESH CAO Tinea pedis B35.3 ; [...] * FRANCISCO YAPDOB:1980 ( 44 yo F)Acc No.[id number]:05/04/2024 Patient: FRANCISCO MILES Provider: Teddy Cao DPM :1980 A ge:44 Y S ex:Female Date:05/04/2024 Address:[address] [place] [address] Subjective: * Chief Complaints: * 1 . [...] rn * Billing Information: * Visit Code: 78493 Office Visit, Est Pt., Level 3. * Procedure Codes: * Sign off status: Completed true * Provider: Teddy Cao DPM Date: 1 07/04/2023 Generated for Krystyna castellon/Wilner/Maral on: 0 10/05/2024 01:49 AM CDT History and Physical Notes * [...]
[2024-10-05] MEDS: IPRATROPIUM 0.5 MG/ALBUTEROL SULFATE 2.5 MG AMPUL.NEB 3 ML 6 ML INHALATION (02:20)
[2024-10-05] MEDS: IPRATROPIUM 0.5 MG/ALBUTEROL SULFATE 2.5 MG AMPUL.NEB 3 ML (02:20)
[2024-10-05 02:26] LABS: SARS-CoV-2 RNA PCR Negative (Negative)
[2024-10-05] MEDS: ALBUTEROL SULFATE NEB 2.5 MG/3 ML INH 5 MG INHALATION (03:00)
--- NOTE | 2024-10-05 03:53 | ED.SOB ---
HPI - SOB/Dyspnea General Chief Complaint: Shortness of Breath/Dyspnea Stated Complaint: wheezing Time Seen by Provider: 10/05/24 01:29 Source: patient Mode of arrival: ambulatory Limitations: no limitations History of Present Illness HPI Narrative: This is a 44-year-old female, with history of chronic bronchitis who presents to the emergency department complaining of shortness of breath and cough for the past several days. The cough is productive of clear sputum without blood. She states she has tried nebulizers at home without improvement. She denies any known sick contacts or recent travel. She denies chest pain, loss of consciousness, nausea or vomiting. She has no other complaints at this time. Related Data Allergies Allergy/AdvReac Type Severity Reaction Status Date / Time etodolac AdvReac Intermediate severe Verified 10/04/24 21:24 dehydration Review of Systems Review of Systems: All systems reviewed & are unremarkable except as noted in HPI and below PMFSH Past Medical History Medical History Screening mammogram for breast cancer IBS (irritable bowel syndrome) Migraine GERD (gastroesophageal reflux disease) Asthma Anemia Anxiety Allergies Surgical History Surgical History History of hysterectomy History of endometrial ablation H/O tubal ligation History of delivery x 3 Family History Family History Mother Heart disease Hypertension Grandparent Heart disease Hypertension Social History Social History Years smoked: 20 Smoking status: Current every day smoker Tobacco type: cigarettes Alcohol intake: current Alcohol use details: rarely Substance use: never Substance use type: does not use Current Housing: Decline to Answer Concerned About Future Housing: Decline to Answer Difficulty Paying Gas/Electric Bills: Decline to Answer Difficulty Paying for Meds: Decline to Answer Currently Unemployed: Decline to Answer Education: Decline to Answer Difficulty w/ Childcare or Family Care: Decline to Answer Living arrangements: with family Occupation/Education: occupation Gender identity (if verbalized by the patient): Female Sexual Orientation (if Verbalized by the Patient): Straight or Heterosexual Spiritual care concerns: No Exam Narrative: GENERAL: Well-developed, well-nourished, and in no acute distress. HEAD: Normocephalic, atraumatic. EYES: PERRLA and EOMI. CHEST: Full cycle wheeze in the bilateral posterior lung mejia. No respiratory distress. No rales or rhonchi HEART: Regular rate and rhythm. No murmur heard. Normal peripheral pulses. ABDOMEN: Soft, nontender, nondistended, normal active bowel sounds. EXTREMITIES: Normal range of motion. No edema. SKIN: Warm, dry, no rash. NEURO: Alert and oriented x3. No focal deficit. Moving all 4 limbs spontaneously PSYCH: Normal mood and affect. Course Course Emergency Course: 03:30 - Chest x-ray by my review not concerning for pneumothorax, edema or focal consolidation. The patient tested negative for COVID. She was given a DuoNeb, oral steroids and a repeat albuterol nebulizer treatment with improvement. She states she feels comfortable with discharge. Will do so with a course of oral steroids. The patient has nebulizers at home. I discussed the findings and recommendations with the patient. Discussed return and emergency precautions including signs/symptoms of ACS and respiratory distress. The patient voiced understanding and agreement with the plan. All questions answered to her satisfaction. Vital Signs Vital signs: Vital Signs Temperature 98.7 F 10/04/24 21:26 Pulse Rate 111 H 10/04/24 21:26 Respiratory Rate 20 10/04/24 21:26 Blood Pressure 135/86 10/04/24 21:26 Pulse Oximetry 96 10/04/24 21:26 Oxygen Delivery Room Air 10/04/24 21:26 Temperature 98.7 F 10/04/24 21:26 Pulse Rate 89 10/05/24 03:19 Respiratory Rate 20 10/05/24 03:19 Blood Pressure 118/64 10/05/24 02:16 Pulse Oximetry 95 10/05/24 02:16 Oxygen Delivery Room Air 10/05/24 01:42 MDM - SOB/Dyspnea MDM Narrative Medical decision making narrative: Plan: Nebs, oral steroids, imaging, reassess Differential Diagnosis Differential diagnosis: Likely acute exacerbation of chronic obstructive airways disease, community acquired pneumonia and other (Acute on chronic bronchitis, COVID, pneumothorax, other) Lab Data Labs: Lab Results 10/05/24 Range/Units 01:44 SARS-CoV-2 RNA (RT-PCR) Negative (Negative) Discharge Plan Discharge Clinical Impression: Bronchitis, Shortness of breath Patient Disposition: Home Condition: Stable Instructions: Antibiotic Form, Chronic Bronchitis (ED) Additional Instructions: You were seen in the emergency department. An x-ray was not concerning for pneumonia, retained fluid or collapsed lung. You for given DuoNeb, albuterol and oral steroids. I recommend a course of steroids and use of your home nebulizers as needed. Up with your primary care doctor. If you develop chest pain, no worsening shortness of breath, loss of consciousness, or if you have other emergent concerns for life, limb, or eyesight, return to the emergency department. Patient Language: Zimbabwean Prescriptions: New prednisone 20 mg tablet 20 mg PO DAILY Qty: 4 0RF guaifenesin 1,200 mg tablet extended release 12hr 1,200 mg PO Q12H Qty: 20 0RF benzonatate 200 mg capsule 200 mg PO BID PRN (Reason: cough) Qty: 6 0RF No Action prednisone 20 mg tablet 40 mg PO DAILY 5 Days Qty: 10 0RF fluticasone propionate [Flonase Allergy Relief] 50 mcg/actuation spray,suspension 2 spray intranasal DAILY Qty: 1 0RF Rx Instructions: administer into each nostril enoxaparin [Lovenox] 40 mg/0.4 mL syringe 40 mg subcut DAILY 42 Days Qty: 16.8 0RF Follow-up/Referrals: Summer,QUINTEN Cedeno [Primary Care Provider] - 1 Week Time of Disposition: 03:30
== END 2024-10-05 04:06 | disposition home or self-care (01) ==
PROVIDERS: Emergency Provider Preventive Medicine Aerospace Medicine; PCP Physician Assistant
DX: J42 Unspecified chronic bronchitis (principal); K58.9 Irritable bowel syndrome, unspecified; K21.9 Gastro-esophageal reflux disease without esophagitis; Z20.822 Contact with and (suspected) exposure to COVID-19; F17.210 Nicotine dependence, cigarettes, uncomplicated
CPT/HCPCS: 71046; 87635; 94640; 99283; 99284; J7512

== ENCOUNTER 2025-04-15 19:40 | Emergency (ER) | payer OTHER, SELFPAY ==
--- NOTE | ~2025-04-15 | XR_ITS ---
EXAMINATION: XR chest 2V 04/15/2025 20:43 INDICATION: Chest congestion PROCEDURE: 2 view chest COMPARISON: Comparison to multiple prior studies sequentially, with oldest reviewed study dated 05/24/2024. FINDINGS: The lungs are clear. The cardiomediastinal silhouette is within normal limits. There are no pleural effusions. There is no pneumothorax suspected. IMPRESSION: 1: NO ACUTE CARDIOPULMONARY DISEASE. Reviewed, dictated and finalized at location O. CONTROLLER
[2025-04-15 19:43] VITALS: BP 142/98; PULSE 111; RESP 22; TEMP 36.6; O2SAT 100
[2025-04-15 20:31] VITALS: O2SAT 100
--- OUTSIDE RECORDS SUMMARY | 2025-04-15 21:19 | XMS_ITS | Patient Health Record ---
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 Worker Helper Name Role Phone KALPESH DELUNA Unavailable [phone] Pao Wheeler Unavailable Unavailable Allergies Allergen (clinical drug ingredient) Drug/Non Drug Allergy documented on EMR Reaction Allergy Type Onset Date Status Iodine Unknown Drug Allergy Active Reason For Referral No Information Medications Medication SIG (Take, Route, Frequency, Duration) Notes Start Date End Date Status Clotrimazole-Betamet hasone 1-0.05 % Cream 1 application Externally Twice a day one tube, 30g or similar 04/20/2024 Active Immunizations Vaccine Route Administration Date Status Comme nts Influenza, high dose seasonal Unknown 08/25/2024 Admini stered Pneumococcal conjugate PCV 13 Unknown 08/25/2024 Admini stered Social History Social History Additional Details Category Social Info Options Details Migrated Social History Migrated Social History Smoking Status : Former smoker , History of tobacco use : Vital Signs Weight-kg 86.18 kg 05/04/2024 Weight 190 lbs 05/04/2024 Encounters Encounter Location Date Provider Diagnosis [facility] [place] [address] [place], [place] [id number] 04/20/2024 KALPESH SNOOK Tinea pedis B35.3 ; Hallux rigidus, right foot M20.21 ; Primary osteoarthritis, right ankle and foot M19.071 and Pain in right foot M79.671 [facility] [place] [address] [place], [place] [id number] 05/04/2024 KALPESH SNOOK Tinea pedis B35.3 ; [...] erythematous, pruritic, scales or erosions between toes. [place]-type tinea pedis affects the soles and medial [...] Insured Coverage Start Date Coverage End Date [facility] [address] [address] [place] [id number] FRANCISCO YAP Self - patient is the insured Medical (General) History Medical History History ICD Code acid reflux fibromyalgia Asthma/Bronchitis Leg/Feet cramps restless leg syndrome
--- OUTSIDE RECORDS SUMMARY | 2025-04-15 21:19 | XMS_ITS | Data Portability ---
Author Organization [facility] Address [address] [place] [address] Care Team Providers Care Pension Agent Name Role Phone EDUARDA AGGARWALSEY Primary Care Provider [phone] Assessment Encounter Date Assessment Date Assessment LastModified by Organization Details LastModified Time 08/05/2024 08/05/2024 Pt has total hysterectomy scheduled with Dr. Zamorano at [facility] 08/05/24. [email or web address] Not available 08/05/2024 14:59:12 Plan of Treatment Reminders Order Date Submit Date Provider Last Modified By Organization Details Last Modified Time Details Appointments None recorde d. Lab CMP, serum or plasma 2024 025 YUSRA [facility], [address], [address], [place], [address], 5 10:15:25 lipid panel, serum or plasma 2024 025 YUSRA Warner, [address], [address], [place], [address], 5 10:15:24 CBC w/ auto diff 2024 025 YUSRA [facility], [address], [address], [place], [address], 5 10:15:27 TSH + free T4, serum 2024 025 YUSRA Warner, [address], [address], [place], [address], 5 10:15:23 HbA1c (hemogl obin A1c), blood 2024 025 YUSRA [facility], [address], [place], [address], 5 10:15:26 surgica l patholo gy study 2023 024 [facility], [address] [facility], [address], [place], [address], 4 14:34:14 Referral physica l therapi st referra l 2024 025 [facility] (Outpatient [facility] Therapy), [address], [place], [address], 5 13:12:38 podiatr ist referra l 2023 024 Derrek Campbell DPM, [address], [address], [place], [address], 4 07:52:57 obstetr ician and gynecol ogist referra l 2023 024 [id number] Javan Castron, [address] [facility], [address], [place], [address], 4 07:55:49 Procedures None recorde d. Surgeries None recorde d. Imaging MAMMO, diagnos tic, bilater al 2023 024 [id number] [facility], [address], [address], [place], [address], 4 07:52:52 MAMMO, screeni ng, bilater al 2023 024 [id number] [facility], [address], [address], [place], [address], 4 07:56:54 [place], axilla [address] ([facility]), [address], [place], [address], 4 07:56:53 Medication Orders ciclopi britany 8 % topical solutio n 2024 025 [facility] [address] [place], [address], 5 16:35:06 Symbico rt 160 mcg-4.5 mcg/act uation HFA aerosol inhaler 2024 025 [facility], [address] [place] [address], [address], 5 16:32:51 ipratro pium bromide 0.02 % solutio n for inhalat ion 2024 025 [facility], [address] [place] [address], [address], 5 16:32:50 albuter ol sulfate 2.5 mg/3 mL (0.083 %) solutio n for nebuliz ation 2024 025 [facility], [address] [place] [address], [address], 5 08:33:54 albuter ol sulfate HFA 90 mcg/act uation aerosol inhaler 2024 025 [facility], [address] [place] [address], [address], 5 08:33:54 beclome thasone diprop 40 mcg/act uation HFA breath activat ed aerosol [address] [facility], [address] [place] [address], [address], 5 16:01:55 tizanid ine 2 mg tablet 2023 025 [facility], [address] [place], [address], 5 08:30:45 nicotin e 14 mg/24 hr daily transde rmal patch 2023 024 [facility], [address] [place], [address], 4 16:01:57 neva on 0.5 % lotion [address]23 [facility], [address] [place], [address], 5 08:30:32 Patient TargetsNo targets recorded. Patient Instructions Encounter Date Encounter Id Patient Instructions Last Modified By Organization Details Last Modified Time 04/08/2024 [id number] Quitting Tobacco : Care Instructions [email or web address] Not available 04/08/2024 16:01:52 08/05/2024 [id number] A healthy lifestyle: care instructions [email or web address] Not available 08/05/2024 08:40:39 Quitting Tobacco : Care Instructions kbarbero Not available 08/05/2024 08:40:11 Reason for Referral Network Relations Consultant Referral for Pain in right foot Referring Physician: Pao Aggarwal [facility], Encounter Date: 04/08/2024 [employer] Gynecologis t Referral for Screening for malignant neoplasm of cervix Referring Physician: [facility], Encounter Date: 04/08/2024 Physical Therapist Referral for Left medial elbow tendinopathy Referring Physician: Pao Aggarwal [facility], Encounter Date: 03/17/2025 Results Created Date Observation Date Name Description Value Unit Range Abnormal Flag Note LastModifiedBy Organization Detail LastModifiedTime 01/03/20 24 01/08/2024 PATHO LOGY REPOR T . COMMEN T Mater ial submi tted: . axill a - RIGHT AXILL A. Modif iers: right Not Available [facility] ([facility]) [address] [facility], [place], [address], 01/08/2024 14:34:14 01/03/20 24 01/08/2024 PATHO LOGY REPOR T . COMMALEX T Clini viv provi ded ICD-1 0: L91.8 Not Available [facility] ([facility]) [address] [facility], [place], [address], 01/08/2024 14:34:14 01/03/20 24 01/08/2024 PATHO LOGY REPOR T . SHAHRZAD T Diagn osis: FIBRO EPITH ELIAL POLYP . TMZ 01/07 0826 Local Not Available [facility] ([facility]) [address] [facility], [place], [address], 01/08/2024 14:34:14 01/03/20 24 01/08/2024 PATHO LOGY REPOR T . COMMEN T Jasson france d: . Donavon MD, [place] topat holog ist Not Available [facility] ([facility]) [address] [facility], [place], [address], 01/08/2024 14:34:14 01/03/20 24 01/08/2024 PATHO LOGY REPOR T . COMMALEX T Gross descr iptio n: . 1 [...] RA 01/07 0826 Local Not Available [facility] ([facility]) [address] [facility], [place], [address], 01/08/2024 14:34:14 01/03/20 24 01/08/2024 PATHO LOGY REPOR T . COMMEN T Patho logis t provi ded ICD-1 0: L91.9 Not Available [facility] ([facility]) [address] [facility], [place], [address], 01/08/2024 14:34:14 01/03/20 24 01/08/2024 PATHO LOGY REPOR T . COMMEN T CPT . 69105 1 Not Available [facility] ([facility]) [address] [place], [address], 01/08/2024 14:34:14 08/05/1908/06/2024 TSH+F REE T4 TSH 1.240 uIU/m L 0.450- 4.500 Not Available [facility] ([facility]) [address] [place], [address], 08/06/2024 10:15:23 08/05/1908/06/2024 TSH+F REE T4 T4,free(dire ct) 1.30 NG/dL 0.82-1 .77 Not Available [facility] ([facility]) [address] [place], [address], 08/06/2024 10:15:23 08/05/19 25 08/06/2024 LIPID PANEL WITH LDL/H DL RATIO cholesterol, total 165 mg/dL 100-19 9 Not Available [facility] ([facility]) [address] [facility], [place], [address], 08/06/2024 10:15:24 08/05/19 25 08/06/2024 LIPID PANEL WITH LDL/H DL RATIO triglyceride s 154 mg/dL 0-149 above high normal Not Available [facility] ([facility]) [address] [place], [address], 08/06/2024 10:15:24 08/05/19 25 08/06/2024 LIPID PANEL WITH LDL/H DL RATIO HDL cholesterol 29 mg/dL >39 below low normal Not Available [facility] ([facility]) [address] [place], [address], 08/06/2024 10:15:24 08/05/19 25 08/06/2024 LIPID PANEL WITH LDL/H DL RATIO VLDL cholesterol mayte 28 mg/dL 5-40 Not Available [facility] ([facility]) [address] [place], [address], 08/06/2024 10:15:24 08/05/19 25 08/06/2024 LIPID PANEL WITH LDL/H DL RATIO LDL chol calc ([facility]) 108 mg/dL 0-99 above high normal Not Available [facility] ([facility]) [address] [place], [address], 08/06/2024 10:15:24 08/05/19 25 08/06/2024 LIPID PANEL WITH LDL/H DL RATIO LDL/HDL ratio 3.7 ratio 0.0-3. 2 above high normal LDL/H DL Ratio Men Women 1/2 Avg.R isk 1.0 1.5 Avg.R isk 3.6 3.2 2X Avg.R isk 6.2 5.0 3X Avg.R isk 8.0 6.1 Not Available [facility] ([facility]) [address] [facility] [place], [address], 08/06/2024 10:15:24 08/05/19 25 08/06/2024 COMP. METAB OLIC PANEL (14) glucose 91 mg/dL 70-99 Not Available [facility] ([facility]) [address] [place], [address], 08/06/2024 10:15:25 08/05/19 25 08/06/2024 COMP. METAB OLIC PANEL (14) BUN 9 mg/dL 6-24 Not Available [facility] ([facility]) [address] [place], [address], 08/06/2024 10:15:25 08/05/19 25 08/06/2024 COMP. METAB OLIC PANEL (14) creatinine 0.93 mg/dL 0.57-1 .00 Not Available [facility] ([facility]) [address] [place], [address], 08/06/2024 10:15:25 08/05/19 25 08/06/2024 COMP. METAB OLIC PANEL (14) eGFR 78 mL/mi n/1.7 3 >59 Not Available [facility] ([facility]) [address] [place], [address], 08/06/2024 10:15:25 08/05/19 25 08/06/2024 COMP. METAB OLIC PANEL (14) BUN/creatini ne ratio 10 9-23 Not Available [facility] ([facility]) [address] [place], [address], 08/06/2024 10:15:25 08/05/19 25 08/06/2024 COMP. METAB OLIC PANEL (14) sodium 141 mmol/ L 134-14 4 Not Available [facility] ([facility]) [address] [place], [address], 08/06/2024 10:15:25 08/05/19 25 08/06/2024 COMP. METAB OLIC PANEL (14) potassium 3.8 mmol/ L 3.5-5. 2 Not Available [facility] ([facility]) [address], [place], [address], 08/06/2024 10:15:25 08/05/19 25 08/06/2024 COMP. METAB OLIC PANEL (14) chloride 103 mmol/ L 96-106 Not Available [facility] ([facility]) [address] [facility], [place], [address], 08/06/2024 10:15:25 08/05/19 25 08/06/2024 COMP. METAB OLIC PANEL (14) carbon dioxide, total 23 mmol/ L 20-29 Not Available [facility] ([facility]) [address] [facility], [place], [address], 08/06/2024 10:15:25 08/05/19 25 08/06/2024 COMP. METAB OLIC PANEL (14) calcium 8.7 mg/dL 8.7-10 .2 Not Available [facility] ([facility]) [address] [facility], [place], [address], 08/06/2024 10:15:25 08/05/19 25 08/06/2024 COMP. METAB OLIC PANEL (14) protein, total 6.5 g/dL 6.0-8. 5 Not Available [facility] ([facility]) [address] [facility] [place], [address], 08/06/2024 10:15:25 08/05/19 25 08/06/2024 COMP. METAB OLIC PANEL (14) albumin 4.0 g/dL 3.9-4. 9 Not Available [facility] ([facility]) [address] [facility] [place], [address], 08/06/2024 10:15:25 08/05/19 25 08/06/2024 COMP. METAB OLIC PANEL (14) globulin, total 2.5 g/dL 1.5-4. 5 Not Available [facility] ([facility]) [address] [place], [address], 08/06/2024 10:15:25 08/05/19 25 08/06/2024 COMP. METAB OLIC PANEL (14) bilirubin, total 0.3 mg/dL 0.0-1. 2 Not Available [facility] ([facility]) [address] [place], [address], 08/06/2024 10:15:25 08/05/19 25 08/06/2024 COMP. METAB OLIC PANEL (14) alkaline phosphatase 88 IU/L 44-121 Not Available [facility] ([facility]) [address] [place], [address], 08/06/2024 10:15:25 08/05/19 25 08/06/2024 COMP. METAB OLIC PANEL (14) AST (SGOT) 19 IU/L 0-40 Not Available [facility] ([facility]) [address] [place], [address], 08/06/2024 10:15:25 08/05/19 25 08/06/2024 COMP. METAB OLIC PANEL (14) ALT (SGPT) 25 IU/L 0-32 Not Available [facility] ([facility]) [address] [place], [address], 08/06/2024 10:15:25 08/05/19 25 08/06/2024 HEMOG LOBIN A1C hemoglobin A1C 5.2 % 4.8-5. 6 Predi abete s: 5.7 - 6.4 Diabe eitenne: >6.4 Glyce zainab contr ol for adult s with diabe etienne: <7.0 Not Available [facility] ([facility]) [address] [place], [address], 08/06/2024 10:15:26 08/05/19 25 08/06/2024 CBC WITH DIFFE RENTI AL/PL ATELE T WBC 10.4 x10e3 /uL 3.4-10 .8 Not Available [facility] ([facility]) [address] [place], [address], 08/06/2024 10:15:27 08/05/19 25 08/06/2024 CBC WITH DIFFE RENTI AL/PL ATELE T RBC 5.27 x10e6 /uL 3.77-5 .28 Not Available [facility] ([facility]) [address] [place], [address], 08/06/2024 10:15:27 08/05/19 25 08/06/2024 CBC WITH DIFFE RENTI AL/PL ATELE T hemoglobin 16.7 g/dL 11.1-1 5.9 above high normal Not Available [facility] ([facility]) [address] [place], [address], 08/06/2024 10:15:27 08/05/19 25 08/06/2024 CBC WITH DIFFE RENTI AL/PL ATELE T hematocrit 50.0 % 34.0-4 6.6 above high normal Not Available [facility] ([facility]) [address] [place], [address], 08/06/2024 10:15:27 08/05/19 25 08/06/2024 CBC WITH DIFFE RENTI AL/PL ATELE T MCV 95 fL 79-97 Not Available [facility] ([facility]) [address] [place], [address], 08/06/2024 10:15:27 08/05/19 25 08/06/2024 CBC WITH DIFFE RENTI AL/PL ATELE T MCH 31.7 pg 26.6-3 3.0 Not Available [facility] ([facility]) [address] [place], [address], 08/06/2024 10:15:27 08/05/19 25 08/06/2024 CBC WITH DIFFE RENTI AL/PL ATELE T MCHC 33.4 g/dL 31.5-3 5.7 Not Available [facility] ([facility]) [address] [facility], [place], [address], 08/06/2024 10:15:27 08/05/19 25 08/06/2024 CBC WITH DIFFE RENTI AL/PL ATELE T RDW 13.0 % 11.7-1 5.4 Not Available [facility] ([facility]) [address] [facility], [place], [address], 08/06/2024 10:15:27 08/05/19 25 08/06/2024 CBC WITH DIFFE RENTI AL/PL ATELE T platelets 270 x10e3 /uL 150-45 0 Not Available [facility] ([facility]) [address] [facility], [place], [address], 08/06/2024 10:15:27 08/05/19 25 08/06/2024 CBC WITH DIFFE RENTI AL/PL ATELE T neutrophils 60 % notest ab. Not Available [facility] ([facility]) [address] [facility], [place], [address], 08/06/2024 10:15:27 08/05/19 25 08/06/2024 CBC WITH DIFFE RENTI AL/PL ATELE T lymphs 28 % notest ab. Not Available [facility] ([facility]) [address] [facility], [place], [address], 08/06/2024 10:15:27 08/05/19 25 08/06/2024 CBC WITH DIFFE RENTI AL/PL ATELE T monocytes 5 % notest ab. Not Available [facility] ([facility]) [address] [facility], [place], [address], 08/06/2024 10:15:27 08/05/19 25 08/06/2024 CBC WITH DIFFE RENTI AL/PL ATELE T eos 6 % notest ab. Not Available [facility] ([facility]) [address] [facility], [place], [address], 08/06/2024 10:15:27 08/05/19 25 08/06/2024 CBC WITH DIFFE RENTI AL/PL ATELE T basos 1 % notest ab. Not Available [facility] ([facility]) [address] [place], [address], 08/06/2024 10:15:27 08/05/19 25 08/06/2024 CBC WITH DIFFE RENTI AL/PL ATELE T neutrophils (absolute) 6.3 x10e3 /uL 1.4-7. 0 Not Available [facility] ([facility]) [address] [place], [address], 08/06/2024 10:15:27 08/05/19 25 08/06/2024 CBC WITH DIFFE RENTI AL/PL ATELE T lymphs (absolute) 2.9 x10e3 /uL 0.7-3. 1 Not Available [facility] ([facility]) [address] [facility], [place], [address], 08/06/2024 10:15:27 08/05/19 25 08/06/2024 CBC WITH DIFFE RENTI AL/PL ATELE T monocytes(ab solute) 0.5 x10e3 /uL 0.1-0. 9 Not Available [facility] ([facility]) [address] [place], [address], 08/06/2024 10:15:27 08/05/19 25 08/06/2024 CBC WITH DIFFE RENTI AL/PL ATELE T eos (absolute) 0.6 x10e3 /uL 0.0-0. 4 above high normal Not Available [facility] ([facility]) [address] [place], [address], 08/06/2024 10:15:27 08/05/19 25 08/06/2024 CBC WITH DIFFE RENTI AL/PL ATELE T baso (absolute) 0.1 x10e3 /uL 0.0-0. 2 Not Available [facility] ([facility]) [address] [facility], [place], [address], 08/06/2024 10:15:27 08/05/19 25 08/06/2024 CBC WITH DIFFE RENTI AL/PL ATELE T immature granulocytes 0 % notest ab. Not Available [facility] ([facility]) [address] [facility], [place], [address], 08/06/2024 10:15:27 08/05/19 25 08/06/2024 CBC WITH DIFFE RENTI AL/PL ATELE T immature grans (abs) 0.0 x10e3 /uL 0.0-0. 1 Not Available [facility] ([facility]) [address] [facility], [place], [address], 08/06/2024 10:15:27 01/22/20 24 01/22/2024 US, axill a No observ ation record ed. [address] [facility], [place], [address], 01/22/2024 16:37:59 04/24/20 24 04/24/2024 MAMMO , diagn ostic , bilat eral No observ ation record ed. [facility] [address], [place], [address], 04/27/2024 12:11:37 05/25/20 24 05/24/2024 XR, chest , 2 view No observ ation record ed. [email or web address], [place], [address], 05/26/2024 09:16:27 06/18/19 25 06/18/2024 XR, chest , 2 view No observ ation record ed. [address], [place], [address], 07/14/2024 17:10:15 06/24/19 25 06/23/2024 imagi ng/di agnos tic resul t No observ ation record ed. [address], [place], [address], 07/22/2024 10:42:57 08/07/19 25 08/07/2024 US, duple x, venou s, extre mity, compl ete No observ ation record ed. [address], [place], [address], 08/07/2024 14:00:21 10/06/19 25 10/05/2024 XR, chest , 2 view No observ ation record ed. [address], [place], [address], 10/06/2024 11:54:27 Result Notes None recorded. Problems Name Problem SNOMED Code Status Onset Date Resolution Date Notes Provider Name and Address Organization Details Recorded Time Anemia 514284680 Active Ewa Esqueda MA null, [place] - [facility] 5 10:50:39 Fibromyalgia 562470130 Active 2022 Priya Griffiths [place] null, [place] - [facility] 3 15:21:52 Mild intermittent asthma 608016187 Active 2022 QUINTEN ALEXANDER Attn: Patric wheatley,[address] [facility], [place], [address], [place] - [facility] 3 12:38:16 Vitamin D deficiency 75106436 Active 2022 QUINTEN ALEXANDER Attn: Patric wheatley,[address] [facility], [place], [address], [place] - [facility] 3 12:38:21 Smoker 74567132 Active 2022 QUINTEN ALEXANDER Attn: Patric wheatley,[address] [facility], [place], [address], [place] - [facility] 3 12:38:19 Obesity 704636587 Active 2022 QUINTEN ALEXANDER Attn: Patric wheatley,[address] [facility], [place], [address], [place] - [facility] 3 12:38:18 Diverticulitis of sigmoid colon 604612145 Active 2023 QUINTEN ALEXANDER Attn: Patric wheatley,[address] [facility], [place], [address], [place] - [facility] 4 17:13:57 Notes:Some problems listed i n Document: #[id number] could not be added to this patient's chart. Please review this document and add these problems to the patient's chart manually as needed. Problem Notes None recorded. Procedures Surgical History Date Name Laterality Status Provider Name and Address Organization Details Recorded Time 4 Skin Tag Removal completed QUINTEN ALEXANDER Attn: Accounting,[address] [facility], [place], [address], [place] [facility] 01/03/2024 17:06:14 7 endometrial ablation completed QUINTEN ALEXANDER Attn: Accounting,[address] [facility], [place], [address], [place] - [facility] 03/12/2023 15:34:16 4 section completed QUINTEN ALEXANDER Attn: Accounting,[address] [facility], [place], [address], [place] - [facility] 01/03/2024 16:49:30 4 ligation of fallopian tube completed QUINTEN ALEXANDER Attn: Accounting,[address] [facility], [place], [address], [place] - [facility] 01/03/2024 16:49:55 9 Caesarean Section completed SIGRID Constantino - [facility] 08/04/2014 10:50:39 0 Caesarean Section completed SIGRID Constantino - [facility] 08/04/2014 10:50:39 Imaging Results None recorded. Procedure Notes None recorded. Medical Equipment None Reported. Allergies Allergen ID Allergen Name Allergen Category Reaction Reaction Severity Criticality Documentation Date Start Date Code Code System Note Provider Name and Address Organization Details Recorded Time 97765 Lodine medicatio n other severe Not available 08/04/2014 8 RxNorm Ewa Esqueda MA null, [place] - [facility] 5 10:26:18 Medications Name Sig Start Date [...] Not Available Not Available Not Available benzonatate 200 mg capsule TAKE 1 CAPSULE (200 MG) BY MOUTH TWICE A DAY NEEDED FOR COUGH 10/20 completed Not Available Not Available Not Available Keflex 500 mg capsule Take 1 capsule 3 times a day by oral route for 10 days. 03/12 completed Not Available Not Available Not Available prednisone 20 mg tablet TAKE 1 TABLET (20 MG) BY MOUTH DAILY 10/20 completed Not Available Not Available Not Available metronidazo le 500 mg tablet TAKE 1 TABLET BY MOUTH EVERY 8 HOURS FOR 7 DAYS 12/05 completed Not Available Not Available Not Available ciprofloxac in 500 mg tablet TAKE 1 TABLET BY MOUTH EVERY 12 HOURS FOR 7 DAYS 12/05 completed Not Available Not Available Not Available ciclopirox 8 % topical solution APPLY TO THE AFFECTED AREA(S) TOPICALLY ONCE DAILY PREFERABL Y AT BEDTIME OR 8 HOURS BEFORE WASHING active Not Available Not Available No t Available oxycodone-a cetaminophe n 5 mg-325 mg tablet TAKE 1 TABLET BY MOUTH EVERY 6 HOURS NEEDED FOR PAIN 10/20 completed Not Available Not Available Not Available malathion 0.5 % lotion APPLY TO DRY HAIR RUB GENTLY INTO SCALP UNTIL FULLY WET, LET HAIR AIR DRY AND SHAMPOO AFTER 8-12 HRS 08/05 completed Not Available Not Available Not Available benzonatate 100 mg capsule TAKE 1 CAPSULE BY MOUTH TWICE DAILY NEEDED FOR COUGH 08/05 completed Not Available Not Available Not Available doxycycline monohydrate 100 mg capsule TAKE 1 CAPSULE BY MOUTH TWICE DAILY FOR 5 DAYS 10/20 completed Not Available Not Available Not Available [...] Available Not Available Not Available fluticasone propionate 50 mcg/actuati on nasal spray,suspe nsion 2 SPRAY INTRANASA LLY DAILY ADMINISTE R INTO EACH NOSTRIL active Not Available Not Available No t Available ipratropium bromide 0.02 % solution for inhalation INHALE 2.5 ML EVERY 6 HOURS BY INHALATIO N ROUTE NEEDED FOR 30 DAYS, FOR ASTHMA. active Not Available Not Available No t Available naproxen 500 mg tablet Take 1 [...] ML) SUBCUTANE OUSLY DAILY FOR 6 WEEKS 10/20 completed Not Available Not Available Not Available cyclobenzap rine 5 mg tablet TAKE 1 TABLET BY MOUTH TWICE DAILY FOR 14 DAYS NEEDED FOR BACK SPASM 08/05 completed Not Available Not Available Not Available budesonide- formoterol HFA 160 mcg-4.5 mcg/actuati on aerosol inhaler INHALE 2 PUFFS TWICE A DAY BY INHALATIO N ROUTE DIRECTED FOR 30 DAYS, FOR ASTHMA. active Not Available Not Available No t Available Senexon-S 8.6 mg-50 mg tablet TAKE 1 TABLET BY MOUTH AT BEDTIME 03/17 completed Not Available Not Available Not Available potassium chloride ER 20 mEq tablet,exte nded release 11/16 completed Not Available Not Available Not Available beclomethas one diprop 40 mcg/actuati on HFA breath activated aerosol Inhale 2 puffs twice a day by inhalatio n route as directed for 90 days, for asthma. 10/20 completed Not Available Not Available Not Available Vitals Date Recorded Body height Body mass index (BMI) Body weight Oxygen saturation Oxygen saturation in Arterial blood by Pulse oximetry Heart rate Respiratory rate Systolic And Diastolic Provider Name and Address Organization Details Last Updated DateTime 5 154.94 cm 38.8 kg/m2 41058.2 4 g 97 % 97 % 77 /min 16 /min 134/88 mm[Hg] Priya Griffiths [facility] 5 08:25:20 Date Recorded Systolic And Diastolic Provider Name and Address Organization Details Last Updated DateTime 10/20/2024 120/70 mm[Hg] QUINTEN ALEXANDER Attn: Accounting,[address] [place], [address], [facility] 10/20/2024 16:46:17 Date Recorded Body height Body mass index (BMI) Body weight Oxygen saturation Oxygen saturation in Arterial blood by Pulse oximetry Heart rate Respiratory rate Systolic And Diastolic Provider Name and Address Organization Details Last Updated DateTime 5 154.94 cm 37.6 kg/m2 81367.8 8 g 99 % 99 % 96 /min 16 /min 131/89 mm[Hg] Priya Griffiths [facility] 5 15:37:15 Date Recorded Body height Body mass index (BMI) Body weight Oxygen saturation Oxygen saturation in Arterial blood by Pulse oximetry Heart rate Respiratory rate Systolic And Diastolic Provider Name and Address Organization Details Last Updated DateTime 4 154.94 cm 37.1 kg/m2 42385.2 g 97 % 97 % 97 /min 16 /min 121/85 mm[Hg] Priya Griffiths MA [facility] 4 16:34:46 Date Recorded Body height Body mass index (BMI) Body weight Oxygen saturation Oxygen saturation in Arterial blood by Pulse oximetry Heart rate Respiratory rate Systolic And Diastolic Provider Name and Address Organization Details Last Updated DateTime 5 154.94 cm 40.2 kg/m2 40561.1 7 g 97 % 97 % 96 /min 16 /min 132/87 mm[Hg] Priya Griffiths [facility] 5 16:17:54 Date Recorded Body height Body mass index (BMI) Body weight Oxygen saturation Oxygen saturation in Arterial blood by Pulse oximetry Heart rate Respiratory rate Systolic And Diastolic Provider Name and Address Organization Details Last Updated DateTime 4 154.94 cm 37.5 kg/m2 81137.0 9 g 99 % 99 % 95 /min 16 /min 111/78 mm[Hg] Monserrat Mcmahon [facility] 4 15:50:46 Social History Question Answer Notes LastModified by Cloud[employer] Details LastModified Time Tobacco Smoking Status Current Every Day Smoker Ewa Esqueda [facility] 08/04/2014 10:50:39 What Is Your Level Of Caffeine Consumption? Occasional [email or web address] Information not available 08/04/2014 What Type Of Diet Are You Following? REGULAR [email or web address] Information not available 08/04/2014 Education 12 [email or web address] Information no t available 08/04/2014 What Was The Date Of Your Most Recent Tobacco Screening? 08/05/2024 Information not available 08/05/2024 Seat Belts Used Routinely Yes [email or web address] Information not available 08/04/2014 How Much Tobacco Do You Smoke? 0.5 PPD [email or web address] Information not available 08/04/2014 Has Tobacco Cessation Counseling Been Provided? Yes Information not available 03/12/2023 On What Date Was Tobacco Cessation Counseling Provided? 08/05/2024 [email or web address] Information not available 08/05/2024 How Many Years Have You Smoked Tobacco? 16 [email or web address] Information not available 08/04/2014 Sex: Unknown Functional Status Question Answer Note LastModified by [employer] Details LastModified Time What is your level of alcohol consumption? Occasional [email or web address] Information not available 03/12/2023 Mental Status None recorded. Family History Relationship Description Onset Age of this Age Resolved Age Notes LastModified by Organization Details LastModified Time Mother Hypertensive disorder Not available 2014 10:26:18 Mother Diabetes mellitus Not available 2014 10:26:18 Mother Kidney disease [email or web address] Not available 2014 10:26:18 Medical History Condition Response Other N Depression N Headaches/Migraines Y Anxiety Disorder N Arthritis N Polyps N Infertility N Acid Reflux (GERD) N Cancer N Stroke N Fibromyalgia N Kidney Disease N Heart Problems N Kidney or Bladder Problems N Acne N Eating Disorder N Asthma N Hepatitis N Breast Cancer N Lung Disease N Breast Problem N Anesthesia Complications N Endometriosis N High Cholesterol N Thyroid Problems N GI Problems N Anemia Y Diabetes N Ovarian Cancer N Blood Transfusions N Abuse/Domestic Violence N Heart Disease N Pre-Eclampsia N Hypertension [...] 1 Living 3 Ectopics 0 Total 3 Immunizations Vaccine Type Date Status Note Provider Nam e and Address Organization Details Recorded Time Influenza, split virus, trivalent, preservative 6 completed Not Available [facility] 03/17/2025 16:12:58 Influenza, split virus, quadrivalent, PF 7 completed Not Available [facility] 03/17/[facility]25 16:12:58 COVID-19, mRNA, LNP-S, PF, 30 mcg/0.3 mL dose 1 completed Not Available [facility] 03/17/2025 16:12:58 COVID-19, mRNA, LNP-S, PF, 30 mcg/0.3 mL dose 1 completed Not Available [facility] 03/17/2025 16:12:58 Past Encounters Encounter ID Performer Location Encounter Start Date Encounter Closed Date Diagnosis/Indication Diagnosis SNOMED-CT Code Diagnosis ICD10 Code Diagnosis IMO Codes Diagnosis Note [id number] DO Johnson Good ([facility] [facility]) [address] [place] [address] 08/04/2014 09:45:08 08/04/2014 15:25:51 Pain in pelvis 60449561 [id number] YESI Lawson NP [facility] [address] [place] [address] 06/17/2018 11:25:42 06/17/2018 13:11:06 Vitamin D deficiency 44875287 E55.9 -Check Vit D level Pain of le ft hip joint 7377603825 02912 M25.552 -Obtain x-ray left hip-Naprox en prn-Contin ue conservati ve tx- ice, heat, rest, stretching -F/u prn Asthma 822370923 J45.90 9 -Renew ventolin Gastroesop hageal reflux disease 451570179 K21.9 -Renew ranitidine Sacral back pain 4182404 3 M54.5 -Obtain x-ray sacrum-Nap roxen prn -Continue conservati ve tx- ice, heat, rest, stretching -F/u prn Body mass index 30+ - obesity 286943673 Z68.37 -Obtain labs Pain in toe 312203928 M7 9.674 -Obtain labs-R/o gout, infection [id number] QUINTEN ALEXANDER [facility] [address] [place] [address] 03/12/2023 15:16:54 03/12/2023 16:10:11 Smoker 21267473 F17.200 1/2 ppdcutting back Depression screening 171 914292 Z13.31 PHQ 2 Screening for malignant neoplasm of cervix 068428329 Z12.4 vaginal spotting x1 yr, spots for 1-2 days then stopsprevi ously establishe d with [employer] [employer]- couldn't figure out why she was passing clots, softball size, told that her endometriu m was normaldiag nosed with PCOSh/o endometria l ablationre shayne to [facility] Screening for malignant neoplasm of breast 691742410 Z12.39 has never had mammogram Obesity 738493980 E66.9 discussed increasing exercise and healthier food options, high protein, low fat diet Loss of hair 767138756 L 65.9 x10 yrsconcern ed for thyroid issueshas not tried any meds for hair growthchec k TSH, can add on antibodies Mild inter mittent asthma 947743827 J45.20 refill Vitamin D deficiency 347 51865 E55.9 re-check Bacterial upper respiratory infection 487673331 A49.9 x1 wkcough, congestion , headaches, rhinorrhea [...] if not or on SSRI antidepres sants. [id number] Brandon hall MD [facility] [address] [place] [address] 11/13/2023 16:40:10 11/13/2023 17:08:11 Mild intermittent asthma 300336367 J45.20 went to ED 1 wk ago due to SOB, no improvemen t with albuterolb reathing treatment, CXR nl, finished prednisone and augmentin w/ improvemen tPEx- nltrial ICSf/u in 1 mo Hypokalemia 55820243 E87 .6 low in ED, will re-check Hypomagnesemia 069159139 E83.42 low in ED, will re-checkta joel magnesium supplement 200 mg Spasm of back muscles 20 5732063 M62.830 since potassium IVlow back crampingPE x- mild TTP L upper trapezius muscletria l flexeril and ibuprofen Depression screening 171 391776 Z13.31 PHQ 0 [id number] Brandon hall MD [facility] [address] [place] [address] 12/06/2023 16:33:06 12/06/2023 17:10:33 Diverticulitis of sigmoid colon 074912395 K57.32 diagnosed with acute sigmoid diverticul itis on 11/15/23 per EDput on flagyl and cipro w/ improvemen t of sxstates that she ate popcorn prior to onset on sxPEx- nldiscusse d symptoms and what foods to avoid to prevent flare Mild inter mittent asthma 687195071 J45.20 12/06/23: insurance will not cover flovent, will trial Qvar redihaler 11/13/23:molly t to ED 1 wk ago due to SOB, no improvemen t with albuterolb reathing treatment, CXR nl, finished prednisone and augmentin w/ improvemen tPEx- nltrial ICSf/u in 1 mo Depression screening 171 231682 Z13.31 PHQ 0 [id number] Brandon hall MD [facility] [address] [place] [address] 01/03/2024 16:27:50 01/03/2024 17:00:23 Mass of axilla 462126912 R22.2 x2 wkscomes and goescan be painfulPEx - 1 cm x 2 cm nodule to L axilla, freely mobile, non-TTPord ered US bilateral Screening for malignant neoplasm of breast 073574793 Z12.39 has never had mammogram Skin tag 643963448 L91.8 to R axillaremo bessy without difficulty sent for pathology Pediculosis capitis 8100 0006 B85.0 daughter with liceno relief with permethrin , [facility] [id number] Negrito Baron MD [facility] [address] [place] [address] 04/08/2024 15:41:41 04/08/2024 16:18:22 Depression screening 233280106 Z13.31 PHQ 0 Smoker 40189994 F17.200 1/2 ppd, cutting back on her ownfor 30 yrstrial nicotine patches Spasm of back muscles 20 6039300 M62.830 04/08/24: muscle cramps to mid back, legs, feet x3 mocutting back on soda, increasing fluid intake and foods high in potassiume ncouraged stretching daily and heating padflexeri l made her feel sleepy, can trial lower dose of tizanidine 11/13/23: since potassium IVlow back crampingPE x- mild TTP L upper trapezius muscletria l flexeril and ibuprofen Pain in right foot 00664 16016 63987 M79.671 R MTP jointinter mittent, can swell and painful with walking in certain shoesPEx- nlrefer to podiatry Screening for malignant neoplasm of cervix 381796365 Z12.4 04/08/24: printed off referral and encouraged pt to call to schedule appt 03/12/23: vaginal spotting x1 yr, spots for 1-2 days then stopsprevi ously establishe d with [employer] SEXUAL [employer]- couldn't figure out why she was passing clots, softball size, told that her endometriu m was normaldiag nosed with PCOSh/o endometria l ablationre shayne to [facility] Screening for malignant neoplasm of breast 793543235 Z12.39 has never had mammogram [id number] Negrito Baron MD [facility] [address] [place] [address] 08/05/2024 08:22:32 08/05/2024 08:41:52 Mild intermittent asthma 286790614 J45.20 08/05/24: has not been using Qvar, couldn't avoid itsent new script and neb solution 12/06/23: insurance will not cover flovent, will trial Qvar redihaler 11/13/23:molly t to ED 1 wk ago due to SOB, no improvemen t with albuterolb reathing treatment, CXR nl, finished prednisone and augmentin w/ improvemen tPEx- nltrial ICSf/u in 1 mo Smoker 63938472 F17.200 1/2 ppd, cutting back on her ownfor 30 yrsno relief with nicotine patches Obesity 059012231 E66.9 BMI 38.8discus sed increasing exercise and healthier food options, high protein, low fat diet Depression screening 171 027283 Z13.31 PHQ 3 [id number] Negrito Baron MD [facility] [address] [place] [address] 10/20/2024 15:24:54 10/20/2024 16:18:03 Mild intermittent asthma 610247016 J45.20 10/20/24: ED visit 2 wks ago for cough, congestion , rattling in chestimpro vement with steroid nebPEx- nladd ipratropiu m bromide solutiontr ial symbicort 08/05/24: has not been using Qvar, couldn't avoid itsent new script and neb solution 12/06/23: insurance will not cover flovent, will trial Qvar redihaler 11/13/23:molly t to ED 1 wk ago due to SOB, no improvemen t with albuterolb reathing treatment, CXR nl, finished prednisone and augmentin w/ improvemen tPEx- nltrial ICSf/u in 1 mo [id number] Negrito Baron MD [facility] [address] [place] [address] 03/17/2025 16:12:32 03/17/2025 16:42:12 Left medial elbow tendinopathy 6517652049 60773 M77.02 3054687 x2 monthsno trauma or injuryimpr ovement with applying pressure to inside of L elbow and using biofreezes tates that she has been limiting her movement and symptoms are not improvingP Ex-mild TTP L medial epicondyle , mild pain with full extension of L elbowrec'd trial compressio n bandrefer to PT Onychomyco sis of toenails 302224004 B35.1 2562407 R big toetrial ciclopirox Health Concerns Section Related Observation LastModified by Organization Detai ls LastModified Time None Recorded Concern Status LastModified by Organization Details LastModified Time None Recorded Advance Directives Directive None Recorded Payers Insurance Date Sequence Insurance Name Policy Number Policy Karimi Covered Member ID Karimi Member ID Guarantor Name 12/06/2023 1 ASHLYN [id number] Silke Read [id number] Silke Read 03/14/2025 2 [place] Silke Read [id number] Silke Read 12/06/2023 1 [facility] (MEDICAID HMO) Silke Read [id number] Silke Read 12/06/2023 2 [facility] ON OR AFTER 12/08/20 (MEDICAID REPLACEMENT - HMO) Silke Bussa [id number] Silke Bussa 12/06/2023 1 [facility] ON OR AFTER 06/10/2020 - DUAL ELIGIBLE (MEDICARE REPLACEMENT/AD VANTAGE - HMO) Silke Chaconsa [id number] Silke Bussa 12/06/2023 2 [facility] ON OR AFTER 12/08/20 (MEDICAID REPLACEMENT - HMO) Silke Nieves Bussa [id number] Silke Bussa 12/06/2023 2 [facility] ON OR AFTER 12/08/20 (MEDICAID REPLACEMENT - HMO) Silke Nieves Bussa [id number] Silke Bussa 03/22/2025 1 [facility] [id number] Silke Nieves Bussa [id number] Silke Bussa Notes Date Note Type Note Provider Name and Address Organization Details Recorded Time 01/03/2024 text/html ROS as noted in the HPI Pt presents for skin tag removal. QUINTEN ALEXANDER Attn: [address] [place], [address], [facility] 01/03/2024 17:09:55 04/08/2024 text/html ROS as noted in the HPI Pt presents to discuss muscle spasms, quitting smoking, R foot pain, and [facility] [facility] referral.C/o muscle cramping to her back, legs, and feet for the past 3 moths. Calf and foot cramping is worse at night. She has been cutting back on her soda intake, drinking more water, and eating foods high in potassium. QUINTEN ALEXANDER Attn: [address] [facility], [place], [address], [facility] 04/10/2024 09:36:25 08/05/2024 text/html ROS as noted in the HPI Pt presents for ED and asthma f/u. Reports that she went to ED 06/2024, diagnosed with bronchitis, treated for pneumonia since she was exposed. She was given amoxicillin, Z dominga, tessalon perles and prednisone with mild improvement. Endorses that she still has a cough, but it is improving. Requesting refills of albuterol and neb solution. QUINTEN ALEXANDER Attn: [address]ing[address] [facility], [place], [address], [facility] 08/05/2024 14:59:33 10/20/2024 text/html ROS as noted in the HPI Patient presents for ED follow-up. Reports that she went to ER 2 weeks ago due to congestion and rattling in her chest despite using her inhaler. She was given breathing treatment with steroid and symptoms improved. Requesting new inhaler due to Qvar too expensive and neb solution that she was given in ED. QUINTEN ALEXANDER Attn: Accounting[address] [facility], [place], [address], [facility] 10/22/2024 10:17:59 03/17/2025 text/html ROS as noted in the HPI Patient presents with intermittent left elbow pain for the past 2 months. Denies any trauma or injury. States that she was sitting at her desk typing and suddenly developed pain to her left elbow. She has pain with opening doors and lifting objects. Improvement when applying pressure while elbow is flexed. She has tried Neptali bandage, compression sleeve, and compression band. Not able to find one that fits. She has not been taking munb-cvq-[id number] pain medications because pain is situational. Improvement with using Biofreeze. QUINTEN ALEXANDER Attn: [address] [facility], [place], [address], [facility] 03/17/2025 17:08:34 OBGyn Episode No OBEpisode recorded.
--- OUTSIDE RECORDS SUMMARY | 2025-04-15 21:19 | XMS_ITS | Clinical Summary ---
Author Organization [facility] Address [facility] [place] [address] Care Team Providers Care Screen Print Operator Name Role Phone Mimi Carrillo MD Primary Care Provider [phone] Allergies Active Allergy Reactions Criticality Noted Date Comments Etodolac Unknown High 01/12/2009 Causes dehydration Medications albuterol sulfate HFA (VENTOLIN HFA) 108 (90 Base) MCG/ACT inhaler 12/17/2016 Act lula vitamin D2, ergocalciferol, 12835 UNITS capsuleIndicatio ns:Low vitamin D level Take [...] 08/29/2015 Breast pain 02/10/2015 Cough variant asthma 12/23/2014 Piriformis syndrome 12/23/2014 Allergic rhinitis 09/21/2014 Seborrheic dermatitis 09/21/2014 Carpal tunnel syndrome 04/09/2014 IBS (irritable bowel syndrome) 02/18/2014 Fibromyalgia 02/18/2014 Obesity affecting , antepartum 01/19/20 09 Overview (07/24/2018): Overview: Previous delivery, antepartum condition or complication 01/18/2009 Resolved Problems Problem Noted Date Diagnosed Date Resolved Date Nausea 10/10/2017 09/17/2018 Cough 02/27/2017 09/17/2018 Flu-like symptoms 02/27/2017 09/17/2018 Flu vaccine need 03/12/2016 02/19/2020 Encounter for preventive health examination 02/15/2014 02/19/2020 Normal 06/08/2013 09/17/2018 with poor obstetric history 01/18/2009 09/17/2018 Overview (07/24/2018): Overview: IMO Update [...] on file 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 Gender Identity Not on file [...] 9:31 AM CDT Height 154.9 cm (5' 1) 09/25/2018 9:31 AM CDT Body Mass Index 38.15 09/25/2018 9:31 AM CDT Plan of Treatment Health Maintenance Due Date Last Done Comments Cervical Cancer Screening Pa p Smear (Age 30 to 64) Every 3 Years 1980 Annual Physical 1983 Hepatitis C 1998 Hepatitis B Vaccines (1 of 3 - 19+ 3-dose series) 1999 Pneumococcal Vaccine: Pediatrics (0 to 5 Years) and At-Risk Patients (6 to 49 Years) (1 of 2 - PCV) 1999 HPV Vaccines (1 - 3-dose SCD M series) 2007 Cervical Cancer Screening Pa p with HPV Testing (Age 30 to 64) Every 5 Years 2010 Cervical Cancer Screening wi th HPV 2010 Mammogram Screening 2020 DTaP, Tdap and Td Vaccines ( 2 - Td or Tdap) 10/15/2023 10/14/2013 COVID-19 Vaccine (2024-2 6 season) 2025 Influenza Adult (#1) 2025 02/27/2017, 03/12/2016, 06/23/2013 Hepatitis A Vaccines Aged Out No long er eligible based on patient's age to complete this topic Meningococcal B Vaccine Aged Out No l onger eligible based on patient's age to complete this topic Meningococcal Vaccine Aged Out No myriam irasema eligible based on patient's age to complete this topic RSV Immunizations Under 20 Months Aged Out No longer eligible b ased on patient's age to complete this topic Insurance [employer] Care Teams Screen Print Operator Relationship Specialty Start Date End Date Mimi Carrillo MD [address] [place] [address] PCP - General FAMILY PRACTICE 07/24/18
--- OUTSIDE RECORDS SUMMARY | 2025-04-15 21:19 | XMS_ITS | Clinical Summary ---
Author Organization [facility] [employer] Address [address] [place] [address] Care Team Providers Care Chest Painting Leader Name Role Phone Unavailable Primary Care Provider Unavailabl e Source Comments [facility] [employer],non-owned Affiliates and Associated Physician Practices is amultiple site organization consisting of ambulatory clinics and hospital sitesin [place], [place], [place] and [place]. This disclosure is being madepursuant to the Care Everywhere program and may not contain all information available regarding this patient. 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 Gender Identity Not on file Sexual Orientation [...] 10:55 AM CDT Height 154.9 cm (5' 1) 01/12/2009 10:45 AM CDT Body Mass Index 40.81 01/12/2009 10:45 AM CDT Plan of Treatment Health Maintenance Due Date Last Done Comments LIPID TESTING 1980 MAMMOGRAM 1980 HIV SCREENING 1995 HEPATITIS C SCREENING 04/15/1998 DTAP/TDAP/TD VACCINES (1 - Tdap) 1999 HEPATITIS B VACCINE (1 of 3 - 19+ 3-dose series) 1999 PNEUMOCOCCAL VACCINE (1 of 2 - PCV) 1999 PAP SMEAR 2001 HPV VACCINE (1 - 3-dose SCDM series) 2007 DEPRESSION SCREENING 06/10/2024 COVID-19 VACCINE (1 - 2023-2 5 season) 2025 INFLUENZA VACCINE (#1) 2025 ZOSTER VACCINE (1 of 2) 2030 [...] / Payer (Ef fective for All Dates) Name:Francisco Read Member ID:Not on file Relation to Subscriber:Not on file Name:FRANCISCO READ Subscriber ID:Not on file (Home) Address: [address] [place] [id number] Payer ID:Not on file Group ID:Not on file Type:Self Pay Address: [facility]
--- OUTSIDE RECORDS SUMMARY | 2025-04-15 21:19 | XMS_ITS | Clinical Summary ---
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
[2025-04-15 22:46] VITALS: BP 112/62; PULSE 95; RESP 24; TEMP 37.8; O2SAT 93
--- NOTE | 2025-04-15 23:10 | ECG_ITS ---
Test Date: 2025-04-15 23:19:34 Measurements Intervals [place] Rate: 100 P: 64 LA: 128 QRS: 57 QRSD: 87 T: 44 QT: 341 QTc: 441 Interpretive Statements SINUS TACHYCARDIA POSSIBLE RIGHT VENTRICULAR CONDUCTION DELAY Electronically Signed On 04-16-2025 10:03:26 [employer] by Edwin Alvarez D.O
[2025-04-15 23:31] LABS: Influenza A QL RT-PCR Negative (Negative); Influenza B QL RT-PCR Negative (Negative); RSV RNA, RT-PCR Negative (Negative); SARS-CoV-2 RNA PCR Negative (Negative)
[2025-04-15 23:33] LABS: Hematocrit 42.2 % (37.0-47.0); Hemoglobin 14.8 g/dL (12.0-15.0); Immature Granulocyte Percent A 0.3 % (0-0.5); Lymphocytes Absolute Auto 2.75 K/mm3 (0.9-3.2); Mean Corpuscular HGB Conc 35.1 g/dl (32-36); Mean Corpuscular Hemoglobin 32.5 pg (26-34); Mean Corpuscular Volume 92.7 fl (80-100); Nucleated Red Blood Cells Absolute Auto 0.000 K/mm3 (0.0-0.012); Nucleated Red Blood Cells Perc 0.0 % (0.0-0.2); Platelet Count Result 250 k/mm3 (150-375); Red Blood Count 4.55 M/mm3 (4.2-5.4); White Blood Count 13.5 K/mm3 (4.5-10.0)
[2025-04-15 23:36] VITALS: PULSE 96; RESP 20
[2025-04-15] MEDS: IPRATROPIUM 0.5 MG/ALBUTEROL SULFATE 2.5 MG (BASE) AMPUL.NEB 3 ML 12 ML INHALATION (23:36)
[2025-04-15 23:45] LABS: Alanine Aminotransferase 19 U/L (6-35); Albumin Level 3.9 g/dL (3.5-5.1); Alkaline Phosphatase 66 U/L (38-126); Anion Gap 5 mmol/L (4-12); Aspartate Amino Transferase 19 U/L (14-36); Bilirubin,Total 0.7 mg/dL (0.2-1.3); Blood Urea Nitrogen 12 mg/dL (7-17); Calcium 8.2 mg/dL (8.4-10.2); Carbon Dioxide 25 mmol/L (22-30); Chloride 106 mmol/L (98-107); Estimated CRCL calculation 64 ml/min; Estimated Glomerular Filt Rate 57; Glucose 102 mg/dL (65-110); Magnesium 1.8 mg/dL (1.6-2.3); Potassium 3.6 mmol/L (3.4-5.0); Sodium 136 mmol/L (137-145); Total Protein 7.0 g/dL (6.3-8.2)
[2025-04-15 23:55] LABS: Troponin I < 0.012 ng/mL (0.000-0.034)
[2025-04-16 00:04] VITALS: PULSE 102; RESP 20
[2025-04-16] MEDS: ACETAMINOPHEN 325 MG TABLET 650 MG PO (00:19)
[2025-04-16] MEDS: dexAMETHasone SOD PHOS INJ 10 MG/ML 1 ML VIAL IM (00:19)
[2025-04-16] MEDS: MAGNESIUM SULF 2 GM/WATER 50ML 2 GM/50 ML BAG IVPB (00:20)
--- NOTE | 2025-04-16 00:53 | ED_ITS ---
HPI - General Adult General Chief complaint: Upper Respiratory Infection Stated complaint: sob Time Seen by Provider: 04/15/25 22:42 44-year-old female with past medical history of chronic bronchitis and asthma presenting with URI symptoms. Patient states the symptoms started on Saturday including congestion/swelling consistent with a sinus infection. Patient states that her symptoms continued to worsen including developing a fever, shortness of breath, and increased malaise. Patient states that she tried the nebulizer twice today with only temporary improvement. Patient also states she has had to use her rescue inhaler 4-5 times daily since Saturday. Denies dizziness, chest pain, abdominal pain, nausea/vomiting/diarrhea. Related Data Allergies Allergy/AdvReac Type Severity Reaction Status Date / Time etodolac AdvReac Intermediate severe Verified 04/15/25 19:45 dehydration Review of Systems 2 Review of Systems: All systems reviewed & are unremarkable except as noted in HPI and below PMFSH Past Medical History Medical History Screening mammogram for breast cancer IBS (irritable bowel syndrome) Migraine GERD (gastroesophageal reflux disease) Asthma Anemia Anxiety Allergies Surgical History Surgical History History of hysterectomy History of endometrial ablation H/O tubal ligation History of delivery x 3 Family History Family History Mother Heart disease Hypertension Grandparent Heart disease Hypertension Social History Social History Years smoked: 20 Tobacco type: cigarettes Alcohol intake: current Alcohol use details: rarely Substance use: never Substance use type: does not use Current Housing: Decline to Answer Concerned About Future Housing: Decline to Answer Difficulty Paying Gas/Electric Bills: Decline to Answer Difficulty Paying for Meds: Decline to Answer Currently Unemployed: Decline to Answer Education: Decline to Answer Difficulty w/ Childcare or Family Care: Decline to Answer Living arrangements: with family Occupation/Education: occupation Gender identity (if verbalized by the patient): Female Sexual Orientation (if Verbalized by the Patient): Straight or Heterosexual Spiritual care concerns: No Exam 2 Narrative: GENERAL: Ill-appearing, well-nourished, and in mild distress. HEAD: Normocephalic, atraumatic. EYES: PERRLA and EOMI. ENT: Nares clear, no rhinorrhea or epistaxis. Mucous membranes moist. Oropharynx without tonsillar hypertrophy exudate or other lesions. Bilateral TMs pearly barrientos non-bulging NECK: Supple. No adenopathy or masses. No carotid bruits or JVD CHEST: Diffuse expiratory wheezing. HEART: Tachycardic. No murmur heard. Normal peripheral pulses. ABDOMEN: Soft, nontender, nondistended, normal active bowel sounds. EXTREMITIES: Normal range of motion. No edema. SKIN: Warm, dry, no rash. NEURO: No focal deficits. Alert and oriented x3. PSYCH: Normal mood and affect Course Vital Signs Vital signs: Vital Signs Temperature 97.9 F 04/15/25 19:43 Pulse Rate 111 H 04/15/25 19:43 Respiratory Rate 22 H 04/15/25 19:43 Blood Pressure 142/98 H 04/15/25 19:43 Pulse Oximetry 100 04/15/25 19:43 Oxygen Delivery Room Air 04/15/25 19:43 Temperature 98.7 F 04/16/25 02:31 Pulse Rate 98 04/16/25 02:31 Respiratory Rate 20 04/16/25 02:31 Blood Pressure 118/65 04/16/25 02:31 Pulse Oximetry 98 04/16/25 02:31 Oxygen Delivery Room Air 04/15/25 20:31 Medical Decision Making [facility] Narrative Medical decision making narrative: 44-year-old female with past medical history of chronic bronchitis and asthma presenting with URI symptoms. Patient states the symptoms started on Saturday including congestion/swelling consistent with a sinus infection. Patient states that her symptoms continued to worsen including developing a fever, shortness of breath, and increased malaise. Patient states that she tried the nebulizer twice today with only temporary improvement. Patient also states she has had to use her rescue inhaler 4-5 times daily since Saturday. Denies dizziness, chest pain, abdominal pain, nausea/vomiting/diarrhea. Upon my initial assessment, the patient was audibly wheezing and distress. Patient had diffuse expiratory wheezing in all lung mejia. CXR demonstrated no acute cardiopulmonary disease. Labs showed mild leukocytosis, patient developed a low grade fever, was tachycardic, and appeared visibly short of breath but maintained good O2 saturations. EKG is without high-risk changes. Clinical diagnosis of pneumonia. Administered hour neb, magnesium, Decadron, and acetaminophen. Upon my re-evaluation patient had much improved lung sounds and was feeling better and in agreement with outpatient treatment with Augmentin and doxycycline. Advised close follow-up with PCP. Medical Records Medical records reviewed: Yes I reviewed the external patient's medical records. Vital Signs Vital Signs: Vital Signs Temperature 97.9 F 04/15/25 19:43 Pulse Rate 111 H 04/15/25 19:43 Respiratory Rate 22 H 04/15/25 19:43 Blood Pressure 142/98 H 04/15/25 19:43 Pulse Oximetry 100 04/15/25 19:43 Oxygen Delivery Room Air 04/15/25 19:43 Temperature 98.7 F 04/16/25 02:31 Pulse Rate 98 04/16/25 02:31 Respiratory Rate 20 04/16/25 02:31 Blood Pressure 118/65 04/16/25 02:31 Pulse Oximetry 98 04/16/25 02:31 Oxygen Delivery Room Air 04/15/25 20:31 Lab Data Lab results reviewed: Yes I reviewed the patient's lab results. 04/15/25 23:26 04/15/25 23:26 Labs: Lab Results 04/15/25 04/15/25 Range/Units 22:50 23:26 WBC 13.5 H (4.5-10.0) K/mm3 RBC 4.55 (4.2-5.4) M/mm3 Hgb 14.8 (12.0-15.0) g/dL Hct 42.2 (37.0-47.0) % MCV 92.7 (80-100) fl MCH 32.5 (26-34) pg MCHC 35.1 (32-36) g/dl RDW 13.5 (11.5-14.5) % Plt Count 250 (150-375) k/mm3 MPV 10.2 (7.4-10.4) fl Immature Gran % (Auto) 0.3 (0-0.5) % Neut % (Auto) 71.8 (45.5-73.1) % Lymph % (Auto) 20.4 (18.3-44.2) % [place] % (Auto) 5.1 (2.6-8.5) % Eos % (Auto) 2.0 (0-4.4) % Baso % (Auto) 0.4 (0.2-1.2) % Lymph # (Auto) 2.75 (0.9-3.2) K/mm3 [place] # (Auto) 0.7 H (0.1-0.6) K/mm3 Eos # (Auto) 0.3 (0-0.3) K/mm3 Baso # (Auto) 0.1 (0.0-0.1) K/mm3 Abs Immat Gran (auto) 0.04 H (0.00-0.031) K/mm3 Absolute Neuts (auto) 9.7 H (1.3-6.7) K/mm3 Absolute Nucleated RBC 0.000 (0.0-0.012) K/mm3 Nucleated RBC % 0.0 (0.0-0.2) % Sodium 136 L (137-145) mmol/L Potassium 3.6 (3.4-5.0) mmol/L Chloride 106 (98-107) mmol/L Carbon Dioxide 25 (22-30) mmol/L Anion Gap 5 (4-12) mmol/L BUN 12 (7-17) mg/dL Creatinine 1.05 H (0.7-1.0) mg/dL Estim Creat Clear Calc 64 ml/min Estimated GFR 57 L (59 - ) Glucose 102 (65-110) mg/dL Calcium 8.2 L (8.4-10.2) mg/dL Magnesium 1.8 (1.6-2.3) mg/dL Total Bilirubin 0.7 (0.2-1.3) mg/dL AST 19 (14-36) U/L ALT 19 (6-35) U/L Alkaline Phosphatase 66 (38-126) U/L Troponin I < 0.012 (0.000-0.034) ng/mL Total Protein 7.0 (6.3-8.2) g/dL Albumin 3.9 (3.5-5.1) g/dL Influenza A (RT-PCR) Negative (Negative) Influenza B (RT-PCR) Negative (Negative) RSV (RT-PCR) Negative (Negative) SARS-CoV-2 RNA (RT-PCR) Negative (Negative) Imaging Data Attestation: I personally reviewed and interpreted this imaging study as follows: Radiologist's impression: ITS Impressions Chest X-Ray 04/15/25 20:44 IMPRESSION: 1: NO ACUTE CARDIOPULMONARY DISEASE. ECG Data EKG #1: Attestation: I personally reviewed and interpreted this ECG as follows: ECG completion date: 04/15/25 ECG completion time: 23:19 EKG Interpretation: tachycardia, sinus rhythm and no ST changes Critical Care Time Critical Care Time Critical Care Time: No Discharge Plan Discharge Clinical Impression: Pneumonia Patient Disposition: Home Condition: Improved Instructions: Antibiotic Form, Community Acquired Pneumonia (ED) Additional Instructions: Return to the emergency department if you experience worsening fever or shortness of breath, chest pain, abdominal pain with nausea and vomiting, weakness, numbness/tingling, or any other symptoms that are concerning to you. Take medications as prescribed. Follow up with primary care doctor Patient Language: Lithuanian Prescriptions: New amoxicillin-pot clavulanate [Augmentin] 500-125 mg tablet 1 tablet PO TID Qty: 21 0RF doxycycline hyclate 100 mg capsule 100 mg PO BID Qty: 14 0RF No Action prednisone 20 mg tablet 40 mg PO DAILY 5 Days Qty: 10 0RF fluticasone propionate [Flonase Allergy Relief] 50 mcg/actuation spray,suspension 2 spray intranasal DAILY Qty: 1 0RF Rx Instructions: administer into each nostril enoxaparin [Lovenox] 40 mg/0.4 mL syringe 40 mg subcut DAILY 42 Days Qty: 16.8 0RF prednisone 20 mg tablet 20 mg PO DAILY Qty: 4 0RF guaifenesin 1,200 mg tablet extended release 12hr 1,200 mg PO Q12H Qty: 20 0RF benzonatate 200 mg capsule 200 mg PO BID PRN (Reason: cough) Qty: 6 0RF Follow-up/Referrals: Summer,QUINTEN Cedeno [Primary Care Provider, Unknown]
[2025-04-16 02:31] VITALS: BP 118/65; PULSE 98; RESP 20; TEMP 37.1; O2SAT 98
== END 2025-04-16 02:33 | disposition home or self-care (01) ==
PROVIDERS: PCP Physician Assistant
DX: J18.9 Pneumonia, unspecified organism (principal); Z20.822 Contact with and (suspected) exposure to COVID-19; J42 Unspecified chronic bronchitis; K58.9 Irritable bowel syndrome, unspecified; K21.9 Gastro-esophageal reflux disease without esophagitis; F17.210 Nicotine dependence, cigarettes, uncomplicated; Z86.2 Personal history of diseases of the blood and blood-forming organs and certain disorders involving the immune mechanism; Z90.710 Acquired absence of both cervix and uterus; R94.31 Abnormal electrocardiogram [ECG] [EKG]; R00.0 Tachycardia, unspecified
CPT/HCPCS: 36415; 71046; 80053; 83735; 84484; 85025; 87637; 93005; 94640; 96365; 96375; 99284; A9270; J1100; J3475